=== PATIENT | female | born 1935 | race African-American/Black ===

== ENCOUNTER 2016-10-21 23:30 | Inpatient (IN) | payer OTHER, MEDICARE ==
--- NOTE | 2016-10-21 23:40 | PDOC ---
History of Present Illness - General History Source: Patient Exam Limitations: No Limitations - History of Present Illness Initial Comments: 10/22/16 00:03 Patient is a 80 year old female with a significant past medical history of hypertension and renal disease on HD who presents via EMS from [facility] sent to the ED complaining of fever and abdominal pain for 3 days. Patient reports abdominal pain localized to RUQ. Patient also reports dysuria. She denies chills, nausea, vomiting, diarrhea or constipation. <Minerva Stone - Last Filed: 10/22/16 01:23> <Zak Ríos - Last Filed: 10/22/16 02:02> <Jaclyn Us - Last Filed: 10/22/16 02:11> <Mayra Yeung - Last Filed: 10/22/16 03:37> - General Stated Complaint: FEVER Past History <Minerva Stone - Last Filed: 10/22/16 01:23> <Zak Ríos - Last Filed: 10/22/16 02:02> <Jaclyn Us - Last Filed: 10/22/16 02:11> <Mayra Yeung - Last Filed: 10/22/16 03:37> - Past Medical History Allergies/Adverse Reactions: Allergies Allergy/AdvReac Type Severity Reaction Status Date / Time No Known Allergies Allergy Verified 10/21/16 23:46 Home Medications: Ambulatory Orders Acetaminophen [Tylenol -] 650 mg PO Q6H PRN 10/22/16 Albuterol 2.5/Ipratropium 0.5 [Duoneb -] 1 neb NEB Q4H PRN 10/22/16 Amlodipine Besylate [Norvasc -] 10 mg PO DAILY 10/22/16 Calcium Carbonate/Vitamin D3 [Calcium 600 + Vit D 200 Tablet] 1 each PO DAILY Carvedilol [Coreg -] 25 mg PO BID 10/22/16 Diphenhydramine HCl [Benadryl -] 25 mg PO DAILY 10/22/16 Folic Acid/Vit Bcomp,C [Dialyvite Tablet] 1 each PO DAILY 10/22/16 Loperamide HCl [Imodium A-D] 2 mg PO Q4H PRN 10/22/16 [place]-3/Dha/Epa/Fish Oil [[place] 3 500 Softgel] 1 each PO DAILY 10/22/16 Review of Systems - Review of Systems Able to Perform ROS?: Yes Comments:: 10/22/16 00:03 CONSTITUTIONAL: Present: fever Absent: chills, diaphoresis, generalized weakness, malaise, loss of appetite HEENT: Absent: rhinorrhea, nasal congestion, throat pain, throat swelling, difficulty swallowing, mouth swelling, ear pain, eye pain, visual Changes CARDIOVASCULAR: Absent: chest pain, syncope, palpitations, irregular heart rate, lightheadedness , peripheral edema RESPIRATORY: Absent: cough, shortness of breath, dyspnea with exertion, orthopnea, wheezing, stridor, hemoptysis GASTROINTESTINAL: Present: abdominal pain Absent: abdominal distension, nausea, vomiting, diarrhea, constipation, melena, hematochezia GENITOURINARY: Present: dysuria Absent: frequency, urgency, hesitancy, hematuria, flank pain, genital pain MUSCULOSKELETAL: Absent: myalgia, arthralgia, joint swelling SKIN: Absent: rash, itching, pallor HEMATOLOGIC/IMMUNOLOGIC: Absent: easy bleeding, easy bruising, lymphadenopathy, frequent infections ENDOCRINE: Absent: unexplained weight gain, unexplained weight loss, heat intolerance, cold intolerance NEUROLOGIC: Absent: headache, focal weakness or paresthesias, dizziness, unsteady gait, seizure, mental status changes, bladder or bowel incontinence PSYCHIATRIC: Absent: anxiety, depression, suicidal or homicidal ideation, hallucinations. <Minerva Stone - Last Filed: 10/22/16 01:23> *Physical Exam - Vital Signs Last Vital Signs Temp Pulse Resp BP Pulse Ox 99.2 F 77 20 112/40 93 L 10/21/16 23:44 10/21/16 23:44 10/21/16 23:44 10/21/16 23:44 10/21/16 23:56 - Physical Exam Comments: 10/22/16 00:05 GENERAL: Well developed, well nourished. Awake and alert. In no acute distress. HEENT: Normocephalic, atraumatic. PERRLA, EOMI. No conjunctival pallor. Sclera are non- icteric. Moist mucous membranes. Oropharynx is clear. NECK: Supple. Full ROM. No JVD. Carotid pulses 2+ and symmetric, without bruits. No thyromegaly. No lymphadenopathy. CARDIOVASCULAR: Regular rate and rhythm. No murmurs, rubs, or gallops. Distal pulses are 2+ and symmetric. PULMONARY: No evidence of respiratory distress. Lungs clear to auscultation bilaterally. No wheezing, rales or rhonchi. ABDOMINAL: +Tenderness over RUQ upon deep palpation. Soft. Non-distended. No rebound or guarding. No organomegaly. Normoactive bowel sounds. MUSCULOSKELETAL Normal range of motion at all joints. No bony deformities or tenderness. No CVA tenderness. EXTREMITIES: +Full strength in all extremities. No cyanosis. No clubbing. No edema. No calf tenderness. SKIN: +Stage 1 dequibidy bedsore on buttocks. Warm and dry. Normal capillary refill. No rashes. No jaundice. NEUROLOGICAL: Alert, awake, appropriate. Cranial nerves 2-12 intact. No deficits to light touch and temperature in face, upper extremities and lower extremities. No motor deficits in the in face, upper extremities and lower extremities. Normoreflexic in the upper and lower extremities. Normal speech. Toes are downgoing bilaterally. Gait deferred. PSYCHIATRIC: Cooperative. Good eye contact. Appropriate mood and affect. <Minerva Stone - Last Filed: 10/22/16 01:23> - Vital Signs Last Vital Signs Temp Pulse Resp BP Pulse Ox 99.2 F 77 20 112/40 93 L 10/21/16 23:44 10/21/16 23:44 10/21/16 23:44 10/21/16 23:44 10/21/16 23:56 <Jaclyn Us - Last Filed: 10/22/16 02:11> - Vital Signs Last Vital Signs Temp Pulse Resp BP Pulse Ox 99.2 F 77 20 112/40 93 L 10/21/16 23:44 10/21/16 23:44 10/21/16 23:44 10/21/16 23:44 10/21/16 23:56 <Mayra Yeung - Last Filed: 10/22/16 03:37> ED Treatment Course - LABORATORY CBC & Chemistry Diagram: 10/22/16 00:30 10/22/16 00:30 - RADIOLOGY Radiology Studies Ordered: 10/22/16 01:24 Exam: Transabdominal sonogram Findings: The visualized aorta has a normal appearance. The visualized pancreatic parenchyma is unremarkable. The proximal IVC is unremarkable. A small pericardial effusion is noted. There is a small right pleural effusion. The liver measures 16.5 cm in length within normal limits. The parenchymal echotexture is unremarkable. Numerous anechoic foci are noted in the right kidney which measures 14.1 cm in length. These may represent dilated calyces or cysts. A lesion in the upper pole appears complex and measures up to 5.5 x 4.9 cm in diameter contains both echogenic and hypoechoic material and vascularity on color images. The gallbladder has a normal appearance. No sludge or shadowing calculi are seen. There is no mural thickening or pericholecystic fluid. Hepatopetal flow is demonstrated in the main portal vein. The CBD measures 8 mm in diameter which is mildly enlarged. The spleen is within limits for size and has a normal appearance. Impression: Small pericardial effusion noted. Small pleural effusion noted. Normal appearance of the liver and gallbladder. Enlarged right kidney with numerous cystic foci. A complex lesion in the upper pole demonstrates internal vascular flow. Further evaluation of this process is indicated. Normal appearance of the gallbladder. Mild ectasia of the CBD. Limited pancreas. <Minerva Stone - Last Filed: 10/22/16 01:23> - LABORATORY CBC & Chemistry Diagram: 10/22/16 00:30 10/22/16 00:30 <Zak Ríos - Last Filed: 10/22/16 02:02> - LABORATORY CBC & Chemistry Diagram: 10/22/16 00:30 10/22/16 00:30 - ADDITIONAL ORDERS Additional order review: Laboratory Results 10/22/16 10/22/16 00:30 00:30 Sodium 135 L Potassium 3.4 L Chloride 94 L Carbon Dioxide 32 Anion Gap 9 BUN 22 H Creatinine 2.8 H Creat Clearance w eGFR 16.30 Random Glucose 78 Lactic Acid 1.419 Calcium 7.7 L Total Bilirubin 0.7 AST 14 L ALT 7 L Alkaline Phosphatase 83 Total Protein 6.3 L Albumin 1.2 L 10/22/16 00:30 RBC 2.54 L MCV 101.3 H MCHC 32.9 RDW 20.8 H MPV 10.4 Neutrophils % 80.0 Lymphocytes % 8.4 Monocytes % 11.3 H Eosinophils % 0.1 Basophils % 0.2 <Jaclyn Us - Last Filed: 10/22/16 02:11> - LABORATORY CBC & Chemistry Diagram: 10/22/16 00:30 10/22/16 00:30 - ADDITIONAL ORDERS Additional order review: Laboratory Results 10/22/16 10/22/16 00:30 00:30 Sodium 135 L Potassium 3.4 L Chloride 94 L Carbon Dioxide 32 Anion Gap 9 BUN 22 H Creatinine 2.8 H Creat Clearance w eGFR 16.30 Random Glucose 78 Lactic Acid 1.419 Calcium 7.7 L Total Bilirubin 0.7 AST 14 L ALT 7 L Alkaline Phosphatase 83 Total Protein 6.3 L Albumin 1.2 L 10/22/16 00:30 RBC 2.54 L MCV 101.3 H MCHC 32.9 RDW 20.8 H MPV 10.4 Neutrophils % 80.0 Lymphocytes % 8.4 Monocytes % 11.3 H Eosinophils % 0.1 Basophils % 0.2 <Mayra Yeung - Last Filed: 10/22/16 03:37> Medical Decision Making - Medical Decision Making 10/22/16 02:02 CXR looks like a right sided pneumonia. Refuses Cath urine. also refuses flu test. <Zak Ríos - Last Filed: 10/22/16 02:02> - Medical Decision Making 10/22/16 02:12 Dr. Purdy,covering for Dr. Lr, was paged through his service. <Jaclyn Us - Last Filed: 10/22/16 02:11> - Critical Care Time Total Critical Care Time (minutes): 30 Critical Care Statement: The care of this patient involved high complexity decision making to prevent further life threatening deterioration of the patient 's condition and/or to evalute & treat vital organ system(s) failure or risk of failure. - Medical Decision Making 10/22/16 03:32 I received patient on signout. She is full code, ESRD, from [place] for pneumonia. Receiving zosyn IVPB; and vancomycin. Once she received vancomycin she states that she wasnt feeling well and she was having difficulty breathong. Vanco was stopped. Pt soon lost consciousness. Code was called and Pt was given cardiac compressions as she lost a pulse. She was given epi x 2 and bicarb and calcium and she was intubated by muyself with a 7.5 ETT. She regained pulses. Dr. Purdy, PMD aware and ICU AWS CONSULTANT aware. Pt will be re-routed to the ICU for admission. <Mayra Yeung - Last Filed: 10/22/16 03:37> *DC/Admit/Observation/Transfer - Attestations Scribe Attestion: 10/22/16 00:07 Documentation prepared by HOLLY Perez, acting as faculty i on call medical assistant for Zak Ríos MD. <Minerva Stone - Last Filed: 10/22/16 01:23> <Zak Ríos - Last Filed: 10/22/16 02:02> <Jaclyn Us - Last Filed: 10/22/16 02:11> - Discharge Dispostion Admit: Yes <Mayra Yeung - Last Filed: 10/22/16 03:37> Diagnosis at time of Disposition: Pneumonia, Respiratory failure - Discharge Dispostion Condition at time of disposition: Poor - Referrals
[2016-10-21] MEDS ORDERED: SODIUM CHLORIDE 1,000 ML IV SCH (23:45)
[2016-10-21] MEDS ORDERED: ACETAMINOPHEN 325 MG TABLET (FP) PO ONE (23:55)
[2016-10-22] MEDS ORDERED: ACETAMINOPHEN 325 MG TABLET (FP) ONE (00:17)
[2016-10-22 00:42] LABS: BASOPHIL 0.2 % (0-2.0); EOSINOPHIL 0.1 % (0-4.5); MCH 33.3 pg (25.7-33.7); MCHC 32.9 g/dl (32.0-36.0); MEAN CELL VOLUME 101.3 fl (80-96); MEAN PLT VOLUME 10.4 fl (7.5-11.1); PLATELET COUNT 68 K/MM3 (134-434); RDW 20.8 % (11.6-15.6); WHITE BLOOD COUNT 9.6 K/mm3 (4.0-10.0)
[2016-10-22 01:31] LABS: ALBUMIN 1.2 g/dl (3.4-5.0); BILIRUBIN,TOTAL 0.7 mg/dL (0.2-1.0); CALCIUM 7.7 mg/dL (8.5-10.1); CREATININE 2.8 mg/dL (0.55-1.02); TOT PROT 6.3 g/dl (6.4-8.2)
[2016-10-22] MEDS ORDERED: VANCOMYCIN 1,000 MG in DEXTROSE 5%-WATER - 250 ML IVPB ONE (02:00)
[2016-10-22] MEDS ORDERED: PIPERACILLIN/TAZOB 3.375 GM 50 ML IVPB ONE (02:14)
[2016-10-22] MEDS ORDERED: VANCOMYCIN 1 GRAM (PRE-DOCKED) 250 ML IVPB ONE (02:15)
[2016-10-22] MEDS: PIPERACILLIN/TAZOB 3.375 GM/50 ML PRE-DOCKED IVPB SCH ×2 (02:46→09:43)
[2016-10-22] MEDS ORDERED: RAPID SEQUENCE INTUBATION KIT NR ONE (03:07)
[2016-10-22 03:55] LABS: ANISOCYTOSIS 2+; HYPOCHROMIA 2+; PLATELET COMMENT2 NO CLOTTING DETECTED; PLATELET ESTIMATE DECREASED (NORMAL); POIKILOCYTOSIS 2+; POLYCHROMASIA 1+
[2016-10-22 03:56] LABS: TOXIC GRANULATION FEW
[2016-10-22] MEDS ORDERED: HEPARIN NA (PORCINE) 5,000 UNITS/ML 1ML VIAL IVPUSH PRN ×2 (04:52)
[2016-10-22 04:59] LABS: ARTERIAL BLD GAS O2 SATURATION 98.2 % (90-98.9); ARTERIAL BLOOD GAS BASE EXCESS 5.9 meq/l (-2-2); ARTERIAL BLOOD GAS HCO3 28.4 meq/L (22-26)
[2016-10-22 05:00] LABS: ALLENS TEST POSITIVE; ART PUNCT SITE RIGHT RADIAL; LPM/O2% 100%; MECH. VENT. YES; PT. ON O2? YES; TYPE OF O2 MECH VENT; VENT RATE 12; VT/PRESS 400
[2016-10-22 05:01] LABS: ARTERIAL BLOOD GAS pH 7.54 (7.35-7.45)
[2016-10-22 05:21] LABS: BASOPHIL 0.2 % (0-2.0); MCH 33.4 pg (25.7-33.7); MCHC 33.1 g/dl (32.0-36.0); MEAN CELL VOLUME 100.7 fl (80-96); MEAN PLT VOLUME 10.9 fl (7.5-11.1); NEUTROPHILS 90.7 % (42.8-82.8); PLATELET COUNT 60 K/MM3 (134-434); RDW 20.9 % (11.6-15.6); WHITE BLOOD COUNT 10.7 K/mm3 (4.0-10.0)
[2016-10-22 05:31] LABS: INR 1.83 (0.82-1.09); PROTHROMBIN TIME (PATIENT) 20.4 SEC (9.98-11.88)
[2016-10-22 05:48] LABS: BILIRUBIN,TOTAL 0.8 mg/dL (0.2-1.0); CALCIUM 8.2 mg/dL (8.5-10.1); CREATININE 2.9 mg/dL (0.55-1.02); MAGNESIUM 1.9 mg/dL (1.8-2.4); TOT PROT 5.6 g/dl (6.4-8.2)
--- NOTE | 2016-10-22 05:59 | CONSULT ---
Consult Consult Specialty:: Pulm/CCM Reason for Consultation:: post arrest, resp failure, altered mental status - History of Present Illness Chief Complaint: abd pain History of Present Illness: This is a 80 yo woman NHR, PMH: HCV, GIB,HTN, ESRD on HD TIW (m,w,f) who presented with abdominal discomfort and RUQ tenderness who had sudden cardiac arrest of unclear etiology. Briefly per the she had been in her usual state of poor health since Jun when she was admitted to [facility] and has been either hospitalized or in subacute care since. She has been on HD since 2006, she has never received therapy for HCV. She has had recurrent anemia requiring transfusions and has questionable history of esophageal varices. She was sent to [facility] ED the week prior for lab abnormalities but was not admitted. The day prior to admission she developed asymmetric L>R LE edema. In the ED she received u/s abd w/o evidence of acute cholecystitis. CXR with RML/RLL consolidation and vanco/zosyn given for HCAP. She developed acute SOB and became pulseless. ACLS provided for ~10min. She was transferred to ICU. Exam notable for decorticate posturing with tactile stimulation. On arrival to ICU BP 80/40. TLC placed. IV fluids given with improvement. Cooling protocol initiated. - History Source History Provided By: Family Member Limitations to Obtaining History: Intubated - Past Medical History Cardio/Vascular: Yes: HTN Renal/: Yes: Renal Failure Infectious Disease: Yes: Other (HCV) - Past Surgical History Past Surgical History: Yes: AV Fistula/Graft - Alcohol/Substance Use Hx Alcohol Use: No - Smoking History Smoking history: Never smoked - Social History Usual Living Arrangement: [facility] Home Medications - Allergies Allergies/Adverse Reactions: Allergies Allergy/AdvReac Type Severity Reaction Status Date / Time No Known Allergies Allergy Verified 10/21/16 23:46 - Home Medications Home Medications: Ambulatory Orders Acetaminophen [Tylenol -] 650 mg PO Q6H PRN 10/22/16 Albuterol 2.5/Ipratropium 0.5 [Duoneb -] 1 neb NEB Q4H PRN 10/22/16 Amlodipine Besylate [Norvasc -] 10 mg PO DAILY 10/22/16 Calcium Carbonate/Vitamin D3 [Calcium 600 + Vit D 200 Tablet] 1 each PO DAILY Carvedilol [Coreg -] 25 mg PO BID 10/22/16 Diphenhydramine HCl [Benadryl -] 25 mg PO DAILY 10/22/16 Folic Acid/Vit Bcomp,C [Dialyvite Tablet] 1 each PO DAILY 10/22/16 Loperamide HCl [Imodium A-D] 2 mg PO Q4H PRN 10/22/16 [place]-3/Dha/Epa/Fish Oil [[place] 3 500 Softgel] 1 each PO DAILY 10/22/16 Family Disease History - Family Disease History Family History: Unable to Obtain Review of Systems Unable to obtain ROS, reason: intubation Physical Exam Vital Signs: Vital Signs Temperature 99.2 F 10/21/16 23:44 Pulse Rate 73 10/22/16 04:00 Respiratory Rate 14 10/22/16 04:00 Blood Pressure 106/59 10/22/16 04:00 O2 Sat by Pulse Oximetry (%) 100 10/22/16 04:00 Current Medications Heparin Sodium (Porcine) (Heparin -) 1,000 unit IVPUSH PRN PRN PRN Reason: Heparin Heparin Sodium (Porcine) (Heparin -) 5,000 unit IVPUSH PRN PRN PRN Reason: Heparin Sodium Chloride (Normal Saline -) 1,000 mls @ 100 mls/hr IV ASDIR MARIE Last Admin: 10/22/16 01:43 Dose: Not Given Heparin Sodium (Porcine) 25, (000 unit/ Sodium Chloride) 500 mls @ 16 mls/hr IV TITR MARIE; 800 UNIT/HR PRN Reason: Protocol Piperacillin Sod/Tazobactam Sod (Zosyn 3.375gm Ivpb (Pre-Docked)) 3.375 gm IVPB Q8H-IV MARIE Last Admin: 10/22/16 02:46 Dose: 3.375 gm Constitutional: Yes: Cachectic Eyes: Yes: PERRL, Other (left side gaze preference) Cardiovascular: Yes: Regular Rate and Rhythm, S1, S2 Respiratory: Yes: Intubated, Mechanically Ventilated, Rales Gastrointestinal: Yes: Normal Bowel Sounds, Soft Extremities: Yes: Other (L>R edema) Edema: LLE: 2+, RLE: 1+ Neurological: Yes: Unresponsive, Other (decorticate posturing with stimulation) Labs: ABG Results ABG pH 7.54 (7.35-7.45) H 10/22/16 04:46 ABG pCO2 at Pt Temp 33.0 mmHg (35-45) L 10/22/16 04:46 ABG pO2 at Pt Temp 386.0 mmHg (70-100) H* 10/22/16 04:46 ABG HCO3 28.4 meq/L (22-26) H 10/22/16 04:46 ABG O2 Sat (Measured) 98.2 % (90-98.9) 10/22/16 04:46 ABG O2 Content 12.4 % vol (15-22) L 10/22/16 04:46 ABG Base Excess 5.9 meq/l (-2-2) H 10/22/16 04:46 CBCD WBC 10.7 K/mm3 (4.0-10.0) H 10/22/16 04:45 RBC 2.46 M/mm3 (3.60-5.2) L 10/22/16 04:45 Hgb 8.2 GM/dL (10.7-15.3) L 10/22/16 04:45 Hct 24.8 % (32.4-45.2) L 10/22/16 04:45 MCV 100.7 fl (80-96) H 10/22/16 04:45 MCHC 33.1 g/dl (32.0-36.0) 10/22/16 04:45 RDW 20.9 % (11.6-15.6) H 10/22/16 04:45 Plt Count 60 K/MM3 (134-434) L 10/22/16 04:45 MPV 10.9 fl (7.5-11.1) 10/22/16 04:45 CMP Sodium 135 mmol/L (136-145) L 10/22/16 00:30 Potassium 3.4 mmol/L (3.5-5.1) L 10/22/16 00:30 Chloride 94 mmol/L (98-107) L 10/22/16 00:30 Carbon Dioxide 32 mmol/L (21-32) 10/22/16 00:30 Anion Gap 9 (8-16) 10/22/16 00:30 BUN 22 mg/dL (7-18) H 10/22/16 00:30 Creatinine 2.8 mg/dL (0.55-1.02) H 10/22/16 00:30 Creat Clearance w eGFR 16.30 (>60) 10/22/16 00:30 Random Glucose 78 mg/dL (74-106) 10/22/16 00:30 Calcium 7.7 mg/dL (8.5-10.1) L 10/22/16 00:30 Total Bilirubin 0.7 mg/dL (0.2-1.0) 10/22/16 00:30 AST 14 U/L (15-37) L 10/22/16 00:30 ALT 7 U/L (12-78) L 10/22/16 00:30 Alkaline Phosphatase 83 U/L (45-117) 10/22/16 00:30 Total Protein 6.3 g/dl (6.4-8.2) L 10/22/16 00:30 Albumin 1.2 g/dl (3.4-5.0) L 10/22/16 00:30 Imaging - Results Chest X-ray: Report Reviewed, Image Reviewed Problem List - Problems (1) Pneumonia Code(s): J18.9 - PNEUMONIA, UNSPECIFIED ORGANISM (2) Respiratory failure Code(s): J96.90 - RESPIRATORY FAILURE, UNSP, UNSP W HYPOXIA OR HYPERCAPNIA (3) ESRD (end stage renal disease) on dialysis Code(s): N18.6 - END STAGE RENAL DISEASE Z99.2 - DEPENDENCE ON RENAL DIALYSIS (4) HCV (hepatitis C virus) Code(s): B19.20 - UNSPECIFIED VIRAL HEPATITIS C WITHOUT HEPATIC COMA (5) Cardiac arrest Code(s): I46.9 - CARDIAC ARREST, CAUSE UNSPECIFIED (6) Shock Code(s): R57.9 - SHOCK, UNSPECIFIED Assessment/Plan a/p: 80 yo woman ESRD on HD, HCV, GIB with cardiac arrest ~10m until ROSC of unclear etiology: primary hypoxia r/t HCAP vs PE given recent history of asymmetric LE edema vs primary arrhythmia/NE now with seizure like activity -mechanical ventilation -cooling per protocol x 24hrs goal temp 36 deg -CT head to r/o CVA -CTA unable to obtain 2/2 IV access -heparin drip empiric for possible PE -ECHO -LE dopplers -TLC placement -pressors as needed for MAP 65-75 -ABX: zosyn/vanco for HCAP -ID consult in AM -Renal consult in AM -neuro consult -trend lactate -trend troponin -f/u amylase/lipase given abd pain on presentation -prn sedation -ativan x1 for seizure -keppra load I spoke with : Carlyle Bullock [phone] Marcy ACNP Pulm/CCM CCT: 35
[2016-10-22 06:04] LABS: TROPONIN I 0.04 ng/ml (0.00-0.05)
[2016-10-22 06:21] LABS: PHOSPHOROUS 1.1 mg/dL (2.5-4.9)
[2016-10-22 07:40] LABS: ANISOCYTOSIS 2+; HYPOCHROMIA 2+; MICROCYTOSIS 1+; PLATELET COMMENT2 NO CLOTTING DETECTED; PLATELET COMMENT3 FEW LARGE PLTS; PLATELET ESTIMATE DECREASED (NORMAL); POIKILOCYTOSIS 1+; POLYCHROMASIA 1+
[2016-10-22 07:41] LABS: FRAGMENTED CELL 1+; TEAR DROP CELLS 1+
[2016-10-22] MEDS ORDERED: HEPARIN INFUSION - 500 ML IVPB ONE (08:01)
[2016-10-22 08:34] LABS: BILIRUBIN,DIRECT 0.4 mg/dL (0.0-0.2)
[2016-10-22] MEDS ORDERED: LORAZEPAM CARPU-JECT 2 MG/ML DISP.SYRIN IVPUSH ONE (08:39)
[2016-10-22] MEDS ORDERED: PROPOFOL 100 ML IVPB SCH (09:00)
--- NOTE | 2016-10-22 09:31 | EKG ---
Test Reason : Blood Pressure : / mmHG Vent. Rate : 080 BPM Atrial Rate : 080 BPM P-R Int : 274 ms QRS Dur : 086 ms QT Int : 428 ms P-R-T Axes : 067 013 057 degrees QTc Int : 493 ms SINUS RHYTHM WITH 1ST DEGREE A-V BLOCK WITH OCCASIONAL PREMATURE VENTRICULAR COMPLEXES POSSIBLE LEFT ATRIAL ENLARGEMENT SEPTAL INFARCT , AGE UNDETERMINED ABNORMAL ECG NO PREVIOUS ECGS AVAILABLE POOR DATA QUALITY, INTERPRETATION MAY BE ADVERSELY AFFECTED Confirmed by LANDON PHILLIP MD ([id number]) on 10/22/2016 9:30:46 AM Referred By: Confirmed By:LANDON PHILLIP MD
[2016-10-22] MEDS ORDERED: levETIRAcetam 500 MG/5 ML INJECTION VIAL IVPB ONE (09:49)
[2016-10-22] MEDS ORDERED: SODIUM PHOSPHATE - 15 MM in DEXTROSE 5%-WATER - 250 ML IVPB ONE (10:00)
--- NOTE | 2016-10-22 10:47 | HP ---
Admitting History and Physical - Admission History of Present Illness: 80 yo woman NHR, PMH: HCV, GIB,HTN, ESRD on HD TIW (m,w,f) who presented with abdominal discomfort and RUQ tenderness who had sudden cardiac arrest of unclear etiology. Briefly per the she had been in her usual state of poor health since Jun when she was admitted to [facility] and has been either hospitalized or in subacute care since. She has been on HD since 2006, she has never received therapy for HCV. She has had recurrent anemia requiring transfusions and has questionable history of esophageal varices. She was sent to [facility] ED the week prior for lab abnormalities but was not admitted. The day prior to admission she developed asymmetric L>R LE edema. In the ED she received u/s abd w/o evidence of acute cholecystitis. CXR with RML/RLL consolidation and vanco/zosyn given for HCAP. She developed acute SOB and became pulseless. ACLS provided for ~10min. She was transferred to ICU. - Past Medical History Cardiovascular: Yes: HTN Renal/: Yes: Renal Failure Infectious Disease: Yes: Other (HCV) - Past Surgical History Past Surgical History: Yes: AV Fistula/Graft - Smoking History Smoking history: Never smoked - Alcohol/Substance Use Hx Alcohol Use: No <Janae Purdy - Last Filed: 10/22/16 11:47> - Primary Care Physician PCP: Boaz Lr <Brooklynn Nation P - Last Filed: 10/24/16 12:33> Home Medications <Janae Purdy - Last Filed: 10/22/16 11:47> <Brooklynn Nation P - Last Filed: 10/24/16 12:33> - Allergies Allergies/Adverse Reactions: Allergies Allergy/AdvReac Type Severity Reaction Status Date / Time No Known Allergies Allergy Verified 10/21/16 23:46 - Home Medications Home Medications: Ambulatory Orders Acetaminophen [Tylenol -] 650 mg PO Q6H PRN 10/22/16 Albuterol 2.5/Ipratropium 0.5 [Duoneb -] 1 neb NEB Q4H PRN 10/22/16 Amlodipine Besylate [Norvasc -] 10 mg PO DAILY 10/22/16 Calcium Carbonate/Vitamin D3 [Calcium 600 + Vit D 200 Tablet] 1 each PO DAILY Carvedilol [Coreg -] 25 mg PO BID 10/22/16 Diphenhydramine HCl [Benadryl -] 25 mg PO DAILY 10/22/16 Folic Acid/Vit Bcomp,C [Dialyvite Tablet] 1 each PO DAILY 10/22/16 Loperamide HCl [Imodium A-D] 2 mg PO Q4H PRN 10/22/16 [place]-3/Dha/Epa/Fish Oil [[place] 3 500 Softgel] 1 each PO DAILY 10/22/16 Physical Examination Vital Signs: Vital Signs Temperature 94.6 F L 10/22/16 09:39 Pulse Rate 84 10/22/16 09:39 Respiratory Rate 12 10/22/16 09:39 Blood Pressure 106/57 10/22/16 09:39 O2 Sat by Pulse Oximetry (%) 100 10/22/16 09:27 Cardiovascular: Yes: S1 Respiratory: Yes: Intubated, Mechanically Ventilated Gastrointestinal: Yes: Normal Bowel Sounds, Soft Neurological: Yes: Unresponsive, Other (some spontoneuos movements--twitching) Labs: CBC, BMP 10/22/16 04:45 10/22/16 04:45 <Janae Purdy - Last Filed: 10/22/16 11:47> Vital Signs: Vital Signs Temperature 98.1 F 10/24/16 11:29 Pulse Rate 80 10/24/16 11:29 Respiratory Rate 20 10/24/16 11:29 Blood Pressure 100/53 10/24/16 11:29 O2 Sat by Pulse Oximetry (%) 100 10/24/16 10:21 Labs: CBC, BMP 10/24/16 05:15 10/24/16 05:15 <Brooklynn Nation - Last Filed: 10/24/16 12:33> Imaging - Results X-ray: Report Reviewed Cat Scan: Report Reviewed <Janae Purdy - Last Filed: 10/22/16 11:47> Problem List - Problems (1) Cardiac arrest Assessment/Plan: FOLLOW CE CARDIO CONSULT EKG ECHO DUPLEX OF LE--R/O DVT CTA Code(s): I46.9 - CARDIAC ARREST, CAUSE UNSPECIFIED (2) ESRD (end stage renal disease) on dialysis Assessment/Plan: RENAL CONSULT FOLLOW RENAL FUNCTION Code(s): N18.6 - END STAGE RENAL DISEASE Z99.2 - DEPENDENCE ON RENAL DIALYSIS (3) Pneumonia Assessment/Plan: IV ABX ID CONSULT FOLLOW LABS Code(s): J18.9 - PNEUMONIA, UNSPECIFIED ORGANISM (4) Respiratory failure Assessment/Plan: VENT SETTING PER PULM FOLLOW SAT Code(s): J96.90 - RESPIRATORY FAILURE, UNSP, UNSP W HYPOXIA OR HYPERCAPNIA <Janae Purdy - Last Filed: 10/22/16 11:47>
[2016-10-22 12:02] LABS: BASOPHIL 0.1 % (0-2.0); EOSINOPHIL 0.1 % (0-4.5); MCH 33.9 pg (25.7-33.7); MCHC 33.3 g/dl (32.0-36.0); MEAN CELL VOLUME 101.7 fl (80-96); MEAN PLT VOLUME 10.2 fl (7.5-11.1); NEUTROPHILS 89.8 % (42.8-82.8); PLATELET COUNT 40 K/MM3 (134-434); RDW 20.7 % (11.6-15.6); WHITE BLOOD COUNT 9.8 K/mm3 (4.0-10.0)
[2016-10-22 12:35] LABS: BILIRUBIN,TOTAL 0.7 mg/dL (0.2-1.0); CREATININE 2.4 mg/dL (0.55-1.02); TOT PROT 4.5 g/dl (6.4-8.2); TROPONIN I 0.1 ng/ml (0.00-0.05)
[2016-10-22] MEDS: HEPARIN - 25,000 UNIT in SODIUM CHLORIDE 495 ML IV SCH (12:43)
--- NOTE | 2016-10-22 12:52 | CONSULT ---
Consult Consult Specialty:: Neurology Reason for Consultation:: Altered mental status - History of Present Illness History of Present Illness: 80 year old woman with history of hepatitis C, GI bleed, hypertension, ESRD on HD, presented with abdominal discomfort, was noted to have sudden cardiac arrest of unclear etiology. As per has been slowly declining in terms of health since June and has been in and out of hospitals and nursing facilities since. In Ed chest xray revealed right lower lobe consolidation, and patient was initiated on therapy for HCAP. Was noted to be unresponsive and pulseless. ACLS provided for ten minutes. Was transferred to ICU where patient was noted to be hypotensive. CT head no acute abnormalites. Exam notable for decorticate posturing with tactile stimulation and seizure like activity. Currently on cooling protocol, not on paralytics. Sedated with propofol - Past Medical History Cardio/Vascular: Yes: HTN Renal/: Yes: Renal Failure Infectious Disease: Yes: Other (HCV) - Past Surgical History Past Surgical History: Yes: AV Fistula/Graft - Alcohol/Substance Use Hx Alcohol Use: No - Smoking History Smoking history: Never smoked - Social History Usual Living Arrangement: [facility] Home Medications - Allergies Allergies/Adverse Reactions: Allergies Allergy/AdvReac Type Severity Reaction Status Date / Time No Known Allergies Allergy Verified 10/21/16 23:46 - Home Medications Home Medications: Ambulatory Orders Acetaminophen [Tylenol -] 650 mg PO Q6H PRN 10/22/16 Albuterol 2.5/Ipratropium 0.5 [Duoneb -] 1 neb NEB Q4H PRN 10/22/16 Amlodipine Besylate [Norvasc -] 10 mg PO DAILY 10/22/16 Calcium Carbonate/Vitamin D3 [Calcium 600 + Vit D 200 Tablet] 1 each PO DAILY Carvedilol [Coreg -] 25 mg PO BID 10/22/16 Diphenhydramine HCl [Benadryl -] 25 mg PO DAILY 10/22/16 Folic Acid/Vit Bcomp,C [Dialyvite Tablet] 1 each PO DAILY 10/22/16 Loperamide HCl [Imodium A-D] 2 mg PO Q4H PRN 10/22/16 [place]-3/Dha/Epa/Fish Oil [[place] 3 500 Softgel] 1 each PO DAILY 10/22/16 Review of Systems Unable to obtain ROS, reason: mental status Physical Exam Vital Signs: Vital Signs Temperature 94.6 F L 10/22/16 09:39 Pulse Rate 70 10/22/16 11:57 Respiratory Rate 10 L 10/22/16 12:04 Blood Pressure 100/54 10/22/16 11:57 O2 Sat by Pulse Oximetry (%) 100 10/22/16 09:27 Constitutional: Yes: Well Nourished Cardiovascular: Yes: S1, S2 Respiratory: Yes: Other (on vent) Neurological: Yes: Other (intubated, sedated on propofol right gaze preference noted, pupils 4 mm non reactive, slight corneal bilaterally appears to slightly withdraw in all ext to noxious stim) Labs: CBC, BMP 10/22/16 11:51 Assessment/Plan 80 year old woman with history of hepatitis C, GI bleed, hypertension, ESRD on HD, presented with abdominal discomfort, was noted to have sudden cardiac arrest of unclear etiology. As per has been slowly declining in terms of health since June and has been in and out of hospitals and nursing facilities since. In Ed chest xray revealed right lower lobe consolidation, and patient was initiated on therapy for HCAP. Was noted to be unresponsive and pulseless. ACLS provided for ten minutes. Was transferred to ICU where patient was noted to be hypotensive. CT head no acute abnormalites. Exam notable for decorticate posturing with tactile stimulation and seizure like activity. Currently on cooling protocol, not on paralytics. Sedated with propofol. Exam limited as patient on cooling protocol and sedated, some withdrawl noted on noxious stim Recommend EEG (will order) On keppra 500 BID, unclear when plan for dialysis Keppra 1 g x [address] head no acute abnormalities Propofol titrated may help with tremors Supportive care
[2016-10-22 12:59] LABS: ALBUMIN 0.9 g/dl (3.4-5.0)
[2016-10-22 13:01] LABS: CALCIUM 6.2 mg/dL (8.5-10.1)
[2016-10-22] MEDS ORDERED: POTASSIUM CHLORIDE 40 MEQ/30 ML UNIT DOSE CUP PO ONE (13:01)
--- NOTE | 2016-10-22 13:28 | CON.NEP ---
Consult Consult Specialty:: Nephrology Referred by:: Dr Purdy Reason for Consultation:: ESRD - History of Present Illness History of Present Illness: This is a 80 yo woman from [facility] with PMH of HCV, GIB, HTN, ESRD on HD TIW who presented with abdominal discomfort and RUQ tenderness who had sudden cardiac arrest of unclear etiology.ACLS lasted 10 minutes. Post arrest pt developed seizures so AED started and for EEG. From ED pt was transferred to ICU where decorticate posturing was noted . "On arrival to ICU BP 80/40. TLC placed. IV fluids given with improvement. Cooling protocol initiated." Pt now on Propofol and on the ventilator with FiO2 of 50% On empiric abx for HCAP and on IV Heparin for possible DVT Sonogram Right renal complex cyst 5.4 cm in diameter Pt known to me from [facility] where she receives her HD on MWF. She was referred to the ED on 10/18 for weakness and relatively low BP after HD but was discharged back to the SNF after evaluation by ED staff. - History Source Limitations to Obtaining History: Other (Sedated) - Past Medical History Cardio/Vascular: Yes: Aneurysm, HTN Renal/: Yes: Renal Failure Infectious Disease: Yes: Other (HCV) - Past Surgical History Past Surgical History: Yes: AV Fistula/Graft - Alcohol/Substance Use Hx Alcohol Use: No - Smoking History Smoking history: Never smoked - Social History Usual Living Arrangement: [facility] Home Medications - Allergies Allergies/Adverse Reactions: Allergies Allergy/AdvReac Type Severity Reaction Status Date / Time No Known Allergies Allergy Verified 10/21/16 23:46 - Home Medications Home Medications: Ambulatory Orders Acetaminophen [Tylenol -] 650 mg PO Q6H PRN 10/22/16 Albuterol 2.5/Ipratropium 0.5 [Duoneb -] 1 neb NEB Q4H PRN 10/22/16 Amlodipine Besylate [Norvasc -] 10 mg PO DAILY 10/22/16 Calcium Carbonate/Vitamin D3 [Calcium 600 + Vit D 200 Tablet] 1 each PO DAILY Carvedilol [Coreg -] 25 mg PO BID 10/22/16 Diphenhydramine HCl [Benadryl -] 25 mg PO DAILY 10/22/16 Folic Acid/Vit Bcomp,C [Dialyvite Tablet] 1 each PO DAILY 10/22/16 Loperamide HCl [Imodium A-D] 2 mg PO Q4H PRN 10/22/16 [place]-3/Dha/Epa/Fish Oil [[place] 3 500 Softgel] 1 each PO DAILY 10/22/16 Nephrology Consult - Height Height: 5 ft 1 in - Weight Weight: 105 lb 11.2 oz - BMI Body Mass Index (BMI): 20.0 - Lab Results CBC,BMP: CBC, BMP 10/22/16 11:51 10/22/16 11:51 Laboratory Tests 10/22/16 10/22/16 10/22/16 04:45 04:45 04:45 PTT (Actin FS) 50.0 H Lactic Acid 5.078 H* Phosphorus 1.1 L* Total Bilirubin AST ALT Alkaline Phosphatase Creatine Kinase Troponin I 0.04 Total Protein Albumin Hep Bs Antigen Hep Bs Ab Concentration Hep B Core Total Ab Hep B Core IgM Ab Hepatitis Be Antibody Hepatitis Be Antigen Hepatitis C Antibody 10/22/16 10/22/16 04:45 11:51 PTT (Actin FS) Lactic Acid Phosphorus Total Bilirubin 0.7 AST 17 ALT 8 L Alkaline Phosphatase 66 Creatine Kinase 34 Troponin I 0.10 H Total Protein 4.5 L Albumin 0.9 L Hep Bs Antigen Pending Hep Bs Ab Concentration Pending Hep B Core Total Ab Pending Hep B Core IgM Ab Pending Hepatitis Be Antibody Pending Hepatitis Be Antigen Pending Hepatitis C Antibody Pending Anion Gap: Anion Gap Anion Gap 11 (8-16) 10/22/16 11:51 - Imaging Chest X-ray: Report Reviewed Cat Scan: Report Reviewed, Other (No acute pathology) Ultrasound: Report Reviewed EKG: Other (NSR with first degree AVB LAE LVH , PVC and slow R wave progression) - Physical Examination Vital Signs: Vital Signs Temperature 94.6 F L 10/22/16 09:39 Pulse Rate 70 10/22/16 11:57 Respiratory Rate 10 L 10/22/16 12:04 Blood Pressure 100/54 10/22/16 11:57 O2 Sat by Pulse Oximetry (%) 100 10/22/16 09:27 Cardiovascular: Yes: S1, S2. No: JVD Respiratory: Yes: Other (Equal air entry bilaterally) Gastrointestinal: Yes: Soft. No: Distention Extremities: Yes: Other (LUE AVF with thrill) Edema: LLE: 1+, RLE: 1+ Neurological: Yes: Unresponsive, Other (On Propofol) Assessment/Plan Impression S/P Cardio Respiratory Arrest- R/O Sepsis and cardiac etiology Pneumonia with respiratory failure S/P Seizure following the arrest- R/O anoxic encephalopathy ESRD with decreased K and PO4 LE edema with severe hypoalbuminemia Right renal complex cyst > 5cms in diameter Anemia and Thrombocytopenia now on Heparin till DVT can be excluded H/O HCV H/O GIB Plan ICU care Venous doppler of LEs Replacing K and PO4 Repeat the BMP, CBC, TNI, and PO4 with the next PTT at 6 pm Reassess regarding need for HD in the am- No dialysis at this time Cautious use heparin given the thrombocytopenia and prior GIBs Await culture results and hepatitis screen Empiric Abx Nutritional support once felt that pt can tolerate feed EEG Ventilatory support and sedation as per CCM No BP or IV in the LUE Evaluation for the right renal complex cyst if and when pt improves Thank You Dr Mackay
--- NOTE | 2016-10-22 14:27 | CONSULT ---
Consult - text type - Consultation Consultation Note: ASKED BY DR Pnik TO SEE PT. 80 YO FEMALE ABDOMINAL PAIN/CARDIOPULMONARY ARREST. PT SEEN, EXAMINED. ECG'S X RAYS REVIEWED. WORKING DX: CARDIOPULMONARY ARREST DIFF DX: OCCULT ARRHYTHMIA DOUBT ACUTE MYOCARDIAL INFARCTION . ECG UNREMARKABLE FOR ACUTE ISCHEMIA. PULMONARY EMBOLUS PRESENTLY HEMODYNAMICALLY STABLE. HYPERTENSION. ESRD ON DIALYSIS. OVARIAN CANCER S/P CHEMO/RADIATION. REC: OBTAIN PRIOR RECORDS NOT AVAILABLE AT THIS TIME. ECHOCARDIOGRAM. SERIAL TROPONIN/ ECG ANTIBIOTICS DICTATED BY CULTURES. "SUPPORTIVE" THANKS. FULL NOTE DICTATED. WILL FOLLOW.
--- NOTE | 2016-10-22 14:46 | PN ---
Progress Note (short form) - Note Progress Note: ID consult dictated imp/reccd witnessed arrest in ED history of fever at NH right lower lobe pneumonia-HCAP vanco/zosyn adjusted for esrd- cultures sputum culture ESRD/HD Problem List - Problems (1) Cardiopulmonary arrest Code(s): I46.9 - CARDIAC ARREST, CAUSE UNSPECIFIED (2) Respiratory failure Code(s): J96.90 - RESPIRATORY FAILURE, UNSP, UNSP W HYPOXIA OR HYPERCAPNIA (3) Pneumonia Code(s): J18.9 - PNEUMONIA, UNSPECIFIED ORGANISM (4) ESRD (end stage renal disease) on dialysis Code(s): N18.6 - END STAGE RENAL DISEASE Z99.2 - DEPENDENCE ON RENAL DIALYSIS
[2016-10-22] MEDS: PIPERACILLIN/TAZOB 2.25 GM 50 ML IVPB SCH (17:52)
[2016-10-22 18:00] LABS: CREATININE 2.5 mg/dL (0.55-1.02); PHOSPHOROUS 1.9 mg/dL (2.5-4.9)
[2016-10-22 18:02] LABS: TROPONIN I 0.08 ng/ml (0.00-0.05)
[2016-10-22 18:04] LABS: CALCIUM 6.7 mg/dL (8.5-10.1)
--- NOTE | 2016-10-22 20:41 | CONS ---
DATE OF CONSULTATION: 10/22/2016 REQUESTING PROVIDER: Janae Purdy MD HISTORY: This is a 80-year-old female. She was sent from the intermediate with apparently fever and abdominal pain. She has a past medical history notable for end-stage renal disease and is on dialysis. She denied any emergency room chills, nausea, vomiting, diarrhea, or constipation. She had a temperature of 99.2 in the emergency room. While in the emergency room, she had a witnessed arrest and a code was called. She was intubated in the emergency room. She received vancomycin and Zosyn in the ER for possible right lung pneumonia. Apparently she has been in poor health since June of this year when she was admitted to [facility]. She has either been in the hospital or in a snf facility since that time. She has a history of hepatitis C as well, which has never been treated. She has had anemia with intermittent transfusions. Ultrasound was done in the emergency room, which showed no evidence of any biliary disease. Chest x-ray was noted for right sided, possible right basilar infiltrate. The decision was made to treat her for HCAP. She remained unresponsive. She is currently sedated on Propofol in the ICU. I am asked to see her for antibiotic recommendations. Post arrest, she developed seizures, so anticonvulsants were started. She was transferred to the ICU. Her blood pressure was low on arrival. She had a triple lumen placed and received IV fluids with improvement. She is now on Propofol and the ventilator with an FIO2 of 50%. PAST MEDICAL HISTORY: Notable for history of hepatitis C, GI bleed, hypertension, end-stage renal disease on dialysis, and she has a left AV fistula in her arm. ALLERGIES: She has no known drug allergies. MEDICATIONS: At the time of admission included Tylenol, DuoNebs, Norvasc, calcium with vitamin D, Coreg, Benadryl, multivitamin, Imodium, and omega-3. SOCIAL HISTORY: She is currently residing at the [facility] where she has been since June. PHYSICAL EXAMINATION: General: She is sedated. She is intubated. HEENT: She is normocephalic. Eyes are anicteric. Neck: Supple. Lungs: Diminished breath sounds at the bases. Heart: Regular rate and rhythm. She has a left upper extremity AV fistula with a thrill. Abdomen: Soft and nontender. Extremities: Without edema. Neurologic: She is unresponsive. LABORATORY DATA: Her labs are notable for a white count of 9.8, hemoglobin 8.4, platelets of 480,000. Her BUN is 20 and creatinine is 2.4. Lactic acid was 5 on admission. Liver function tests were normal. Influenza screen was done in the emergency room, which is negative. Blood cultures are pending. SUMMARY: This is a 80-year-old woman with end-stage renal disease on dialysis, admitted with history of fever at the intermediate, abdominal pain, questionable right lower lobe infiltrate, and witnessed cardiac arrest in the emergency room. I would agree with antibiotics as planned. We are certainly treating her for healthcare-associated pneumonia. She received vancomycin 1 g given her weight of 105 pounds. That should be quite adequate. I would continue her on Zosyn, adjusted for her renal failure. She is being evaluated by Cardiology and Neurology as well. BRINDA PERRY M.D. [id number]
[2016-10-22 20:55] LABS: BASOPHIL 0.2 % (0-2.0); EOSINOPHIL 0.1 % (0-4.5); MCH 32.9 pg (25.7-33.7); MCHC 32.8 g/dl (32.0-36.0); MEAN CELL VOLUME 100.3 fl (80-96); MEAN PLT VOLUME 10.7 fl (7.5-11.1); PLATELET COUNT 44 K/MM3 (134-434); RDW 20.5 % (11.6-15.6); WHITE BLOOD COUNT 7.6 K/mm3 (4.0-10.0)
[2016-10-22] MEDS: levETIRAcetam 500 MG/5 ML INJECTION VIAL IVPB SCH (21:42)
--- NOTE | 2016-10-22 22:35 | CONS ---
DATE OF CONSULTATION: 10/22/2016 CARDIOLOGY CONSULTATION REQUESTING PHYSICIAN: HISTORY OF PRESENT ILLNESS: The patient is a 80-year-old female admitted on October 21, 2016, because of abdominal pain and a cardiopulmonary arrest. The patient has no history of myocardial infarction or rhythm disturbance. She has known chronic renal insufficiency requiring hemodialysis and hypertension. In addition, there is a previous history of ovarian carcinoma for which she has undergone chemotherapy and radiation. She is admitted now with abdominal pain, an ultrasound study failed to demonstrate any evidence of acute cholecystitis in the emergency room. Plans were made for her to be moved to a medical surgical floor form from the emergency room when she was found to be asystolic with a cardiopulmonary arrest. The resuscitation was successful endotracheal intubation was performed along with cardiopulmonary compression with muslim of a sinus rhythm after being found pulseless. She was brought to the intensive care unit where she had evidence of seizure activity. Vital signs were stable without the requirements for catecholamine support. There is no history of diabetes or smoking. The present medications include propofol, Keppra, heparin, piperacillin, and vancomycin. SOCIAL HISTORY: The patient is . 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 There is no history of smoking or alcohol abuse. PAST MEDICAL HISTORY: Infectious disease , end-stage renal failure, thought to be related to an embolus, details not available. PAST SURGICAL HISTORY: AV fistula for purposes of hemodialysis. ALLERGIES: None. PHYSICAL EXAMINATION: General: The patient is intubated, sedated. Vital signs: Temperature 95, heart rate 70, blood pressure 90 to 100 systolic. The weight is 105 pounds. Neck: No neck vein distention. Lungs: There is poor air exchange bilaterally, there is no wheezing. Heart: The heart sounds are normal. There is a 1/6 systolic murmur at the left sternal border and base. No diastolic sounds were appreciated. The AV fistula is palpable in the left upper extremity with a thrill. There is no peripheral edema. The feet are warm. NEUROLOGICAL: There is no focal neurological deficit. DATABASE: The electrocardiogram on presentation demonstrates sinus rhythm with a technically limited study, 1st-degree AV block, premature ventricular polarizations, low voltage limb leads, possible septal infarct indeterminate age. Subsequent tracing following cardiopulmonary resuscitation on October 22, 2016, now demonstrates sinus rhythm at a rate of 70 per minute, 1st-degree AV block, isolated premature ventricular polarizations, nonspecific ST and T wave changes compared to the previous tracing, nonspecific ST and T wave changes are less apparent on the present study . The present study is technically improved. There is a micro R wave in V2 replacing the previously described QS pattern which probably represents a change in lead placement. The chest x-ray was reviewed, it demonstrates an endotracheal tube in place along with a nasogastric tube. The heart size cannot be accurately assessed due to the technique of the film. There are coarse interstitial lung findings. LABORATORY: Studies of note include white blood cell count of 9.8, hematocrit 25%, platelet count is 40,000. The INR is 1.8 and arterial blood gases on 100% FiO2, pH of 7.54, pCO2 of 33, and pO2 of 386. The CPK is 30 to 34, troponin level is 0.04 to 0.10. IMPRESSION: The working diagnosis is a cardiopulmonary arrest. The differential diagnosis as to the etiology includes an occult arrhythmia. The patient has a first-degree arteriovenous block but no other evidence of conduction system disease to suggest a predisposition towards high-degree arteriovenous block and a bradyarrhythmia. In the setting of a ostensibly normal left ventricular systolic function the risk for the development of a malignant ventricular arrhythmia is low. Electrocardiographic monitoring during symptoms/the cardiac arrest would have been most helpful for diagnosis; however, the patient was not on telemetry monitoring at the time of the cardiopulmonary arrest. Other diagnostic consideration would be that of an acute myocardial infarction; however, the electrocardiogram is unremarkable for acute myocardial ischemic changes. Troponin levels are not significantly elevated, and the CPK level is normal. A pulmonary embolus would also have to be considered as a diagnostic consideration. The patient is presently hemodynamically stable without the requirement of pressors. Of note, and importance in laboratory studies, is marked thrombocytopenia and mild elevation of the INR level. Other problems include a prior history of hypertension, end-stage renal disease on hemodialysis, ovarian carcinoma status post chemotherapy and radiation. I recommended the followin. Obtain prior records not presently available. 2. Echocardiogram. 3. Serial troponin and ECG studies. 4. Antibiotics dictated by cultures. 5. Discontinuation of heparin. 6. "Supportive" further workup and therapy will be dictated by the results of the above evaluation and the patient's clinical course. Thank you for allowing me to take part in the care of this pleasant patient. Will follow along with you. WILLIS TAM M.D. [id number]
[2016-10-22] MEDS ORDERED: POTASSIUM PHOSPHATE 15 MM in DEXTROSE 5%-WATER - 250 ML IVPB ONE (23:02)
[2016-10-22] MEDS ORDERED: NOREPINEPHRINE BITARTRATE 4 MG/4 ML ML IV ONE (23:20)
[2016-10-23] MEDS: NOREPINEPHRINE BITARTRATE 16,000 MCG in DEXTROSE 5%-WATER - 484 ML IV SCH (00:06)
[2016-10-23] MEDS: PIPERACILLIN/TAZOB 2.25 GM 50 ML IVPB SCH ×3 (01:40→17:27)
[2016-10-23] MEDS ORDERED: HEPARIN INFUSION - 500 ML IVPB ONE (06:04)
[2016-10-23 06:11] LABS: BASOPHIL 0.1 % (0-2.0); EOSINOPHIL 0.2 % (0-4.5); MCH 33.2 pg (25.7-33.7); MCHC 33.4 g/dl (32.0-36.0); MEAN CELL VOLUME 99.6 fl (80-96); MEAN PLT VOLUME 11.2 fl (7.5-11.1); NEUTROPHILS 91.1 % (42.8-82.8); PLATELET COUNT 65 K/MM3 (134-434); RDW 20.4 % (11.6-15.6); WHITE BLOOD COUNT 11.4 K/mm3 (4.0-10.0)
[2016-10-23 06:35] LABS: PHOSPHOROUS 3.4 mg/dL (2.5-4.9)
[2016-10-23 06:36] LABS: CALCIUM 7.6 mg/dL (8.5-10.1)
[2016-10-23] MEDS: HEPARIN - 25,000 UNIT in SODIUM CHLORIDE 495 ML IV SCH (06:40)
[2016-10-23 06:42] LABS: BILIRUBIN,TOTAL 0.6 mg/dL (0.2-1.0); CREATININE 3.1 mg/dL (0.55-1.02); TOT PROT 5.8 g/dl (6.4-8.2); TROPONIN I 0.06 ng/ml (0.00-0.05)
[2016-10-23 07:24] LABS: ARTERIAL BLD GAS O2 SATURATION 97.4 % (90-98.9); ARTERIAL BLOOD GAS BASE EXCESS 5.1 meq/l (-2-2); ARTERIAL BLOOD GAS HCO3 28.1 meq/L (22-26)
[2016-10-23 07:25] LABS: ALLENS TEST POSITIVE; ART PUNCT SITE RIGHT RADIAL; LPM/O2% 40; MECH. VENT. YES; PT. ON O2? YES; TYPE OF O2 VENT; VENT RATE 10; VT/PRESS 350
--- NOTE | 2016-10-23 07:30 | PN ---
Progress Note, Physician Chief Complaint: ID ICU follow up for this 80 year old female with ESRD and history of declining health with weight loss who had a cardiac arrest yesterday. We were asked to see her for fever and pulmonary infiltrate. Prior history of ovarian cancer per notes. Currently intubated and on some pressors. Had been originally sent form the custodial of abd pain and fever. At present intubated pressors and moving around some. - Current Medication List Current Medications: Active Medications Heparin Sodium (Porcine) (Heparin -) 1,000 unit IVPUSH PRN PRN PRN Reason: Heparin Heparin Sodium (Porcine) (Heparin -) 5,000 unit IVPUSH PRN PRN PRN Reason: Heparin Heparin Sodium (Porcine) 25, (000 unit/ Sodium Chloride) 500 mls @ 14 mls/hr IV TITR MARIE; 700 UNIT/HR PRN Reason: Protocol Last Admin: 10/23/16 06:40 Dose: 13 mls/hr Propofol (Diprivan -) 100 mls @ 1.438 mls/hr IVPB TITR MARIE; 5 MCG/KG/MIN PRN Reason: Protocol Last Titration: 10/23/16 06:13 Dose: 5 mcg/kg/min Piperacillin Sod/Tazobactam Sod (Zosyn 2.25gm Ivpb (Pre-Docked)) 50 mls @ 100 mls/hr IVPB Q8H-IV MARIE Last Admin: 10/23/16 01:40 Dose: 100 mls/hr Norepinephrine Bitartrate 16, (000 mcg/ Dextrose) 500 mls @ 9.37 mls/hr IV TITR MARIE; 5 MCG/MIN PRN Reason: Protocol Last Titration: 10/23/16 03:00 Dose: 8 mcg/min Levetiracetam (Keppra Injection -) 500 mg IVPB BID MARIE Last Admin: 10/22/16 21:42 Dose: 500 mg Pneumococcal 13-Valent Conj Vacc (Prevnar 13 Syringe -) 0.5 ml IM .ONCE ONE Stop: 10/23/16 10:01 - Objective Vital Signs: Vital Signs Temperature 97.0 F L 10/23/16 06:05 Pulse Rate 72 10/23/16 06:05 Respiratory Rate 10 L 10/23/16 06:29 Blood Pressure 104/53 10/23/16 06:05 O2 Sat by Pulse Oximetry (%) 100 10/22/16 20:58 Constitutional: Yes: Other (INtubated) Neck: Yes: WNL Cardiovascular: Yes: Regular Rate and Rhythm, S1, S2 Respiratory: Yes: WNL, Regular, CTA Bilaterally. No: Rhonchi Gastrointestinal: Yes: Soft, Other (firm). No: Palpable Mass, Tenderness, Tenderness, Epigastrium, Tenderness, Rebound Extremities: Yes: Other (AVF left upper ext) Labs: CBC, BMP 10/23/16 05:15 10/23/16 05:15 INR, PTT INR 1.83 (0.82-1.09) H 10/22/16 04:45 Problem List - Problems (1) Cardiopulmonary arrest Code(s): I46.9 - CARDIAC ARREST, CAUSE UNSPECIFIED (2) ESRD (end stage renal disease) on dialysis Code(s): N18.6 - END STAGE RENAL DISEASE Z99.2 - DEPENDENCE ON RENAL DIALYSIS (3) Pneumonia Code(s): J18.9 - PNEUMONIA, UNSPECIFIED ORGANISM (4) Respiratory failure Code(s): J96.90 - RESPIRATORY FAILURE, UNSP, UNSP W HYPOXIA OR HYPERCAPNIA Assessment/Plan Microbiology 10/22/16 04:00 Nasopharyngeal Swab Influenza Types A,B Antigen (JARRET) - Final 10/22/16 04:00 Nasopharyngeal Swab - Final 10/22/16 00:30 Blood - Peripheral Venous Blood Culture - Preliminary NO GROWTH OBTAINED AFTER 24 HOURS, INCUBATION TO CONTINUE FOR 4 DAYS. 10/22/16 00:30 Blood - Peripheral Venous Blood Culture - Preliminary NO GROWTH OBTAINED AFTER 24 HOURS, INCUBATION TO CONTINUE FOR 4 DAYS. Laboratory Tests 10/22/16 10/23/16 10/23/16 04:45 05:15 05:15 WBC 11.4 H D Hgb 9.1 L Hct 27.3 L Plt Count 65 L D INR 1.83 H ABG pCO2 at Pt Temp Oxygen Flow Rate BUN 27 H D AST 15 ALT 9 L Alkaline Phosphatase 74 10/23/16 07:10 WBC Hgb Hct Plt Count INR ABG pCO2 at Pt Temp 36.0 Oxygen Flow Rate 40 BUN AST ALT Alkaline Phosphatase Assessment 1. Cardiopulmonary arrest 2. Respiratory arrest 3. Pneumonia bilateral infiltrates 4. ESRD 5. History of Ovarian cancer Plan Continue Zosyn as ordered along with Vanco given Sputum c/s 38 minutes of ICU time spent examining and discussing waith nursing staff Helen ZHAO
[2016-10-23] MEDS: levETIRAcetam 500 MG/5 ML INJECTION VIAL IVPB SCH ×2 (09:22→22:20)
[2016-10-23] MEDS ORDERED: PNEUMOC 13-VAL CONJ-DIP CRM/PF 0.5 ML DISP.SYRIN IM ONE (10:00)
--- NOTE | 2016-10-23 10:38 | EKG ---
Test Reason : Blood Pressure : / mmHG Vent. Rate : 070 BPM Atrial Rate : 070 BPM P-R Int : 248 ms QRS Dur : 088 ms QT Int : 432 ms P-R-T Axes : 046 -04 011 degrees QTc Int : 466 ms SINUS RHYTHM WITH 1ST DEGREE A-V BLOCK WITH OCCASIONAL PREMATURE VENTRICULAR COMPLEXES LOW VOLTAGE QRS BORDERLINE ECG WHEN COMPARED WITH ECG OF 21-OCT-2016 23:57, T WAVE INVERSION LESS EVIDENT IN ANTEROLATERAL LEADS Confirmed by JIMMY SINGH MD ([id number]) on 10/23/2016 10:38:30 AM Referred By: Danita CALIX Confirmed By:JIMMY SINGH MD
--- NOTE | 2016-10-23 11:12 | PN ---
Progress Note, Physician History of Present Illness: Renal f/u Pt off propofol from this am On Levophed at 4 mcg/min Non purposeful movement noted TNI trending down EKG not available from today NSR on telemetry FiO2 at 40% + DVT on doppler so heparin continued - Current Medication List Current Medications: Active Medications Heparin Sodium (Porcine) (Heparin -) 1,000 unit IVPUSH PRN PRN PRN Reason: Heparin Heparin Sodium (Porcine) (Heparin -) 5,000 unit IVPUSH PRN PRN PRN Reason: Heparin Heparin Sodium (Porcine) 25, (000 unit/ Sodium Chloride) 500 mls @ 14 mls/hr IV TITR MARIE; 700 UNIT/HR PRN Reason: Protocol Last Titration: 10/23/16 07:35 Dose: 650 unit/hr Propofol (Diprivan -) 100 mls @ 1.438 mls/hr IVPB TITR MARIE; 5 MCG/KG/MIN PRN Reason: Protocol Last Titration: 10/23/16 08:05 Dose: 0 mcg/kg/min Piperacillin Sod/Tazobactam Sod (Zosyn 2.25gm Ivpb (Pre-Docked)) 50 mls @ 100 mls/hr IVPB Q8H-IV MARIE Last Admin: 10/23/16 09:22 Dose: 100 mls/hr Norepinephrine Bitartrate 16, (000 mcg/ Dextrose) 500 mls @ 9.37 mls/hr IV TITR MARIE; 5 MCG/MIN PRN Reason: Protocol Last Titration: 10/23/16 08:04 Dose: 6 mcg/min Levetiracetam (Keppra Injection -) 500 mg IVPB BID MARIE Last Admin: 10/23/16 09:22 Dose: 500 mg - Objective Vital Signs: Vital Signs Temperature 97.0 F L 10/23/16 06:05 Pulse Rate 79 10/23/16 10:11 Respiratory Rate 13 10/23/16 10:11 Blood Pressure 108/53 10/23/16 08:04 O2 Sat by Pulse Oximetry (%) 100 10/23/16 10:12 Constitutional: Yes: No Distress Cardiovascular: Yes: S1, S2 Respiratory: Yes: Other (Equal air entry Bilaterally) Gastrointestinal: Yes: Soft. No: Distention Extremities: Yes: Other (AVF in the LUE with thrill) Edema: LLE: Trace, RLE: Trace Neurological: Yes: Other (Poorly responsive) Labs: CBC, BMP 10/23/16 05:15 10/23/16 05:15 INR, PTT INR 1.83 (0.82-1.09) H 10/22/16 04:45 Laboratory Tests 10/23/16 05:15 PTT (Actin FS) 74.7 H Laboratory Tests 10/23/16 10/23/16 05:15 05:15 Phosphorus 3.4 D Magnesium 2.0 AST 15 ALT 9 L Alkaline Phosphatase 74 Creatine Kinase 19 L Troponin I 0.06 H Total Protein 5.8 L D Albumin 1.0 L - ....Imaging Chest X-ray: Report Reviewed, Image Reviewed EKG: Other (N/A at this time) Assessment/Plan Impression S/P Cardio Respiratory Arrest- R/O Sepsis and cardiac etiology Pneumonia with respiratory failure DVT of right leg S/P Seizure following the arrest- R/O anoxic encephalopathy ESRD Severe hypoalbuminemia Right renal complex cyst > 5cms in diameter Anemia and Thrombocytopenia H/O HCV H/O GIB Plan Hold on HD today will wait an additional 24 hours to allow pt tpo become hemodynamically more stabilized- No indication for acute HD at this time To pull back the ET tube Taper off the Levophed Wean as tolerated Trial of feeds via NGT once off pressors Heparin as per protocol Empiric Abx EEG No BP or IV in the LUE Evaluation for the right renal complex cyst if and when pt improves Discussed with CCM and ICU team made aware of the plan Dr Mackay
--- NOTE | 2016-10-23 11:39 | PN ---
Teaching Attending Note Name of Resident: Howard Shea ATTENDING PHYSICIAN STATEMENT I saw and evaluated the patient. I reviewed the resident's note and discussed the case with the resident. I agree with the resident's findings and plan as documented. SUBJECTIVE: Pt seen and examined in the ICU. Remains intubated, poorly responsive off sedation but moving head spontaneously with purposeful movements. Limbs flaccid. OBJECTIVE: Last Vital Signs Temp Pulse Resp BP Pulse Ox 97.0 F L 79 13 107/52 100 10/23/16 06:05 10/23/16 10:11 10/23/16 10:11 10/23/16 10:00 10/23/16 10:12 Intake & Output 10/20/16 10/21/16 10/22/16 10/23/16 23:59 23:59 23:59 23:59 Intake Total 1042 616 Output Total 1 Balance 1042 615 Weight 112 lb 105 lb 11.2 oz 102 lb 15.294 oz Gen: intubated, poorly responsive Heart: RRR Lung: scattered rhonchi Abd: soft, nontender Ext: no edema Neuro: PERRL, spontaneous head movements, +cough, gag CBC, BMP 10/23/16 05:15 10/23/16 05:15 Active Medications Heparin Sodium (Porcine) (Heparin -) 1,000 unit IVPUSH PRN PRN PRN Reason: Heparin Heparin Sodium (Porcine) (Heparin -) 5,000 unit IVPUSH PRN PRN PRN Reason: Heparin Heparin Sodium (Porcine) 25, (000 unit/ Sodium Chloride) 500 mls @ 14 mls/hr IV TITR MARIE; 700 UNIT/HR PRN Reason: Protocol Last Titration: 10/23/16 07:35 Dose: 650 unit/hr Propofol (Diprivan -) 100 mls @ 1.438 mls/hr IVPB TITR MARIE; 5 MCG/KG/MIN PRN Reason: Protocol Last Titration: 10/23/16 08:05 Dose: 0 mcg/kg/min Piperacillin Sod/Tazobactam Sod (Zosyn 2.25gm Ivpb (Pre-Docked)) 50 mls @ 100 mls/hr IVPB Q8H-IV MARIE Last Admin: 10/23/16 09:22 Dose: 100 mls/hr Norepinephrine Bitartrate 16, (000 mcg/ Dextrose) 500 mls @ 9.37 mls/hr IV TITR MARIE; 5 MCG/MIN PRN Reason: Protocol Last Titration: 10/23/16 08:04 Dose: 6 mcg/min Levetiracetam (Keppra Injection -) 500 mg IVPB BID MARIE Last Admin: 10/23/16 09:22 Dose: 500 mg ASSESSMENT AND PLAN: s/p PEA Cardiopulmonary Arrest s/p Hypothermia Protocol r/o Pneumonia Shock - Septic vs Cardiogenic vs Obstructive Lactic Acidosis ESRD on HD r/o Anoxic Encephalopathy RLE distal DVT - continue empiric antibiotics - f/u cultures - taper levophed gtt to maintain MAP >65 - minimize sedation to assess mental status - continue anticoagulatin - HD per renal - for EEG - on empiric antiepileptics - echocardiogram to evaluate LVEF, RVSP - consider CTA chest to r/o PE as etiology of arrest if RVSP elevated - enteral feeds when pressor requirement improved - DVT/GI prophylaxis - continue ICU monitoring
--- NOTE | 2016-10-23 14:39 | PN ---
Physical Exam: SUBJECTIVE: Patient seen and examined at bedside. NO overnight events. Patient is intubated and off sedation. Minimally responsive. Just moves head. OBJECTIVE: Vital Signs Period Temp Pulse Resp BP Sys/Hodgson Pulse Ox Last 24 Hr 95.2 F-97.0 F 66-79 10-15 90-112/40-62 100-100 GENERAL: Intubated and minimally responsive. HEAD: alopecia EYES: PERRLA, No occular movement. ENT: Nares patent. NECK: supple and no jvd. RIJ in place. LUNGS:intubated and scattered rhonchi. HEART: Regular rate and rhythm, S1, S2 without murmur, rub or gallop. ABDOMEN: Soft, nontender, nondistended, EXTREMITIES: no edema. NEUROLOGICAL: +Gag , spontaneous head movements. PSYCH:unable to access Laboratory Results - last 24 hr 10/22/16 10/22/16 10/22/16 16:30 16:30 20:00 WBC 7.6 RBC 2.55 L Hgb 8.4 L Hct 25.5 L MCV 100.3 H MCHC 32.8 RDW 20.5 H Plt Count 44 L MPV 10.7 Neutrophils % 87.0 H Lymphocytes % 7.3 L D Monocytes % 5.4 Eosinophils % 0.1 Basophils % 0.2 PTT (Actin FS) 104.9 H D Puncture Site ABG pH ABG pCO2 at Pt Temp ABG pO2 at Pt Temp ABG HCO3 ABG O2 Sat (Measured) ABG O2 Content ABG Base Excess Ventura Test O2 Delivery Device Oxygen Flow Rate Vent Mode Vent Rate Mechanical Rate PEEP Pressure Support Vent Sodium 139 Potassium 3.7 D Chloride 104 Carbon Dioxide 25 Anion Gap 10 BUN 21 H Creatinine 2.5 H Creat Clearance w eGFR Random Glucose 75 Calcium 6.7 L* Phosphorus 1.9 L D Magnesium Total Bilirubin AST ALT Alkaline Phosphatase Creatine Kinase Troponin I 0.08 H Total Protein Albumin Random Vancomycin 10/23/16 10/23/16 10/23/16 00:00 05:15 05:15 WBC 11.4 H D RBC 2.74 L Hgb 9.1 L Hct 27.3 L MCV 99.6 H MCHC 33.4 RDW 20.4 H Plt Count 65 L D MPV 11.2 H Neutrophils % 91.1 H Lymphocytes % 4.1 L D Monocytes % 4.5 Eosinophils % 0.2 D Basophils % 0.1 PTT (Actin FS) 83.2 H Puncture Site ABG pH ABG pCO2 at Pt Temp ABG pO2 at Pt Temp ABG HCO3 ABG O2 Sat (Measured) ABG O2 Content ABG Base Excess Ventura Test O2 Delivery Device Oxygen Flow Rate Vent Mode Vent Rate Mechanical Rate PEEP Pressure Support Vent Sodium 132 L Potassium 4.7 D Chloride 95 L Carbon Dioxide 27 Anion Gap 10 BUN 27 H D Creatinine 3.1 H D Creat Clearance w eGFR 14.49 Random Glucose 115 H D Calcium 7.6 L Phosphorus Magnesium Total Bilirubin 0.6 AST 15 ALT 9 L Alkaline Phosphatase 74 Creatine Kinase 19 L Troponin I 0.06 H Total Protein 5.8 L D Albumin 1.0 L Random Vancomycin 10/23/16 10/23/16 10/23/16 05:15 05:15 07:10 WBC RBC Hgb Hct MCV MCHC RDW Plt Count MPV Neutrophils % Lymphocytes % Monocytes % Eosinophils % Basophils % PTT (Actin FS) 74.7 H Puncture Site Right radial ABG pH 7.50 H ABG pCO2 at Pt Temp 36.0 ABG pO2 at Pt Temp 167.0 H* D ABG HCO3 28.1 H ABG O2 Sat (Measured) 97.4 ABG O2 Content 12.9 L ABG Base Excess 5.1 H Ventura Test Positive O2 Delivery Device Vent Oxygen Flow Rate 40 Vent Mode A/c Vent Rate 10 Mechanical Rate Yes PEEP 5.0 Pressure Support Vent 350 Sodium Potassium Chloride Carbon Dioxide Anion Gap BUN Creatinine Creat Clearance w eGFR Random Glucose Calcium Phosphorus 3.4 D Magnesium 2.0 Total Bilirubin AST ALT Alkaline Phosphatase Creatine Kinase Troponin I Total Protein Albumin Random Vancomycin 4.273 Active Medications Generic Name Dose Route Start Last Admin Trade Name Freq PRN Reason Stop Dose Admin Heparin Sodium (Porcine) 1,000 unit 10/22/16 04:52 Heparin - IVPUSH PRN PRN Heparin Heparin Sodium (Porcine) 5,000 unit 10/22/16 04:52 Heparin - IVPUSH PRN PRN Heparin Heparin Sodium (Porcine) 25, 500 mls @ 14 mls/hr 10/22/16 05:00 10/23/16 07:35 000 unit/ Sodium Chloride IV 650 unit/hr TITR MARIE Titration Protocol 700 UNIT/HR Propofol 100 mls @ 1.438 mls/hr 10/22/16 09:00 10/23/16 08:05 Diprivan - IVPB 0 mcg/kg/min TITR MARIE Titration Protocol 5 MCG/KG/MIN Piperacillin Sod/Tazobactam Sod 50 mls @ 100 mls/hr 10/22/16 18:00 10/23/16 09: 22 Zosyn 2.25gm Ivpb (Pre-Docked) IVPB 100 mls/hr Q8H-IV MARIE Administration Norepinephrine Bitartrate 16, 500 mls @ 9.37 mls/hr 10/22/16 23:15 10/23/16 08: 04 000 mcg/ Dextrose IV 6 mcg/min TITR MARIE Titration Protocol 5 MCG/MIN Levetiracetam 500 mg 10/22/16 22:00 10/23/16 09:22 Keppra Injection - IVPB 500 mg BID MARIE Administration ASSESSMENT/PLAN: 80 yo F F with PMHx of HCV, HTN , ESRD (HD MWF) admitted to ICU s/p Cariopulmonary arrest. Neuro: * minimally responsive. * Anoxic encephalopathy * EEG pending * Continue Keppra 200mg PO BID Pulm: * Intubated and off sedation. * AC mechanical ventilation on 50%Fio2 * Continue Zosyn 2.25gm CV: * US shows RLE DVT - continue heparin drip * Currently on 8cmg of Levophed will decrease as tolerated maintain MAP>65 * Echo pending . Renal: * NO HD today as per nephrology * repeat CMP in AM * avoid nephrotoxins. F/E/N * NO IVF at this time * HD PRN * WIll start enteral feeds once off pressors. Visit type - Emergency Visit Emergency Visit: Yes ED Registration Date: 10/22/16 Care time: The patient presented to the Emergency Department on the above date and was hospitalized for further evaluation of their emergent condition. - New Patient This patient is new to me today: Yes Date on this admission: 10/23/16 - Critical Care Critical Care patient: Yes Total Critical Care Time (in minutes): 33 Critical Care Statement: The care of this patient involved high complexity decision making to prevent further life threatening deterioration of the patient 's condition and/or to evalute & treat vital organ system(s) failure or risk of failure.
--- NOTE | 2016-10-23 15:50 | PN ---
Progress Note, Physician - Current Medication List Current Medications: Active Medications Heparin Sodium (Porcine) (Heparin -) 1,000 unit IVPUSH PRN PRN PRN Reason: Heparin Heparin Sodium (Porcine) (Heparin -) 5,000 unit IVPUSH PRN PRN PRN Reason: Heparin Heparin Sodium (Porcine) 25, (000 unit/ Sodium Chloride) 500 mls @ 14 mls/hr IV TITR MARIE; 700 UNIT/HR PRN Reason: Protocol Last Titration: 10/23/16 07:35 Dose: 650 unit/hr Propofol (Diprivan -) 100 mls @ 1.438 mls/hr IVPB TITR MARIE; 5 MCG/KG/MIN PRN Reason: Protocol Last Titration: 10/23/16 08:05 Dose: 0 mcg/kg/min Piperacillin Sod/Tazobactam Sod (Zosyn 2.25gm Ivpb (Pre-Docked)) 50 mls @ 100 mls/hr IVPB Q8H-IV MARIE Last Admin: 10/23/16 09:22 Dose: 100 mls/hr Norepinephrine Bitartrate 16, (000 mcg/ Dextrose) 500 mls @ 9.37 mls/hr IV TITR MARIE; 5 MCG/MIN PRN Reason: Protocol Last Titration: 10/23/16 08:04 Dose: 6 mcg/min Levetiracetam (Keppra Injection -) 500 mg IVPB BID MARIE Last Admin: 10/23/16 09:22 Dose: 500 mg - Objective Vital Signs: Vital Signs Temperature 98.9 F 10/23/16 14:00 Pulse Rate 79 10/23/16 14:00 Respiratory Rate 13 10/23/16 15:37 Blood Pressure 104/47 10/23/16 14:00 O2 Sat by Pulse Oximetry (%) 100 10/23/16 10:12 Cardiovascular: Yes: Regular Rate and Rhythm, S1, S2 Respiratory: Yes: Diminished Gastrointestinal: Yes: Normal Bowel Sounds, Soft Edema: No Labs: CBC, BMP 10/23/16 05:15 10/23/16 05:15 INR, PTT INR 1.83 (0.82-1.09) H 10/22/16 04:45 Problem List - Problems (1) Cardiopulmonary arrest Code(s): I46.9 - CARDIAC ARREST, CAUSE UNSPECIFIED (2) DVT (deep venous thrombosis) Code(s): I82.409 - ACUTE EMBOLISM AND THOMBOS UNSP DEEP VN UNSP LOWER EXTREMITY (3) ESRD (end stage renal disease) on dialysis Code(s): N18.6 - END STAGE RENAL DISEASE Z99.2 - DEPENDENCE ON RENAL DIALYSIS (4) Pneumonia Code(s): J18.9 - PNEUMONIA, UNSPECIFIED ORGANISM (5) Respiratory failure Code(s): J96.90 - RESPIRATORY FAILURE, UNSP, UNSP W HYPOXIA OR HYPERCAPNIA Assessment/Plan (1) Cardiac arrest Assessment/Plan: FOLLOW CE CARDIO CONSULT DUPLEX OF LE-- DVT CTA PENDING IV HEPARIN Code(s): I46.9 - CARDIAC ARREST, CAUSE UNSPECIFIED (2) ESRD (end stage renal disease) on dialysis Assessment/Plan: RENAL CONSULT FOLLOW RENAL FUNCTION Code(s): N18.6 - END STAGE RENAL DISEASE Z99.2 - DEPENDENCE ON RENAL DIALYSIS (3) Pneumonia Assessment/Plan: IV ABX ID CONSULT FOLLOW LABS Code(s): J18.9 - PNEUMONIA, UNSPECIFIED ORGANISM (4) Respiratory failure Assessment/Plan: VENT SETTING PER PULM FOLLOW SAT Code(s): J96.90 - RESPIRATORY FAILURE, UNSP, UNSP W HYPOXIA OR HYPERCAPNIA PRODUCTION HAND FM
--- NOTE | 2016-10-23 16:28 | PN ---
Progress Note, Physician History of Present Illness: Started on norepinephrine -. being titrated No purposeful mvt, off propofol - Current Medication List Current Medications: Active Medications Heparin Sodium (Porcine) (Heparin -) 1,000 unit IVPUSH PRN PRN PRN Reason: Heparin Heparin Sodium (Porcine) (Heparin -) 5,000 unit IVPUSH PRN PRN PRN Reason: Heparin Heparin Sodium (Porcine) 25, (000 unit/ Sodium Chloride) 500 mls @ 14 mls/hr IV TITR MARIE; 700 UNIT/HR PRN Reason: Protocol Last Titration: 10/23/16 07:35 Dose: 650 unit/hr Propofol (Diprivan -) 100 mls @ 1.438 mls/hr IVPB TITR MARIE; 5 MCG/KG/MIN PRN Reason: Protocol Last Titration: 10/23/16 08:05 Dose: 0 mcg/kg/min Piperacillin Sod/Tazobactam Sod (Zosyn 2.25gm Ivpb (Pre-Docked)) 50 mls @ 100 mls/hr IVPB Q8H-IV MARIE Last Admin: 10/23/16 09:22 Dose: 100 mls/hr Norepinephrine Bitartrate 16, (000 mcg/ Dextrose) 500 mls @ 9.37 mls/hr IV TITR MARIE; 5 MCG/MIN PRN Reason: Protocol Last Titration: 10/23/16 08:04 Dose: 6 mcg/min Levetiracetam (Keppra Injection -) 500 mg IVPB BID MARIE Last Admin: 10/23/16 09:22 Dose: 500 mg - Objective Vital Signs: Vital Signs Temperature 98.9 F 10/23/16 14:00 Pulse Rate 79 10/23/16 14:00 Respiratory Rate 13 10/23/16 15:37 Blood Pressure 104/47 10/23/16 14:00 O2 Sat by Pulse Oximetry (%) 100 10/23/16 10:12 Constitutional: Yes: No Distress Eyes: Yes: Other (close) HENT: Yes: Other (ETT in place) Neck: Yes: Supple Cardiovascular: Yes: Regular Rate and Rhythm, Murmur (at base) Respiratory: Yes: CTA Bilaterally (ant and laterally) Gastrointestinal: Yes: Normal Bowel Sounds Extremities: Yes: Other (warm) Edema: No Peripheral Pulses WNL: Yes Neurological: Yes: Unresponsive Labs: CBC, BMP 10/23/16 05:15 10/23/16 05:15 INR, PTT INR 1.83 (0.82-1.09) H 10/22/16 04:45 - ....Imaging Chest X-ray: Report Reviewed, Image Reviewed EKG: Report Reviewed, Image Reviewed Other: Other (tele -. SR Echo (10/23/16) -. Nl LV size with mildly reduced EF at 49% with mild global HK, mild MR/AI, mild-mod PI, nl RV, PASP 30-40., small PE.) Assessment/Plan 80 yo female with HTN, ESRD -> HD, ovarian CA, here with abd pain -. cardiopulmonary arrest -> seizures -> now intubated, on norepineprhrine Etiology not clear. However, pt with right calf DVT -. raising question of PE ( though reported rhythm was asystole. PEA may have degenerated into asystole) She remains unresponsive, after hypothermia protocol Trop I are indeterminate Echo with mild global LV dysfunction and normal right heart, PASP 30-40 Rec: Try to take off norepinehrine Chest CT when stable enough - cont heparin Cont anti-seizure meds per neuro Per IM/ID/pulm Neuro status will have major impact on further management Prognosis guarded
[2016-10-23] MEDS: ACETAMINOPHEN 1000 MG/100 ML VIAL (NON FORMULARY) IVPB PRN (17:27)
--- NOTE | 2016-10-23 23:57 | PN ---
Progress Note, Physician Chief Complaint: lethargy , altered mental status, intubated - Current Medication List Current Medications: Active Medications Acetaminophen (Ofirmev Injection -) 1,000 mg IVPB Q6H PRN PRN Reason: FEVER OR PAIN Stop: 10/24/16 11:21 Last Admin: 10/23/16 17:27 Dose: 1,000 mg Heparin Sodium (Porcine) (Heparin -) 1,000 unit IVPUSH PRN PRN PRN Reason: Heparin Heparin Sodium (Porcine) (Heparin -) 5,000 unit IVPUSH PRN PRN PRN Reason: Heparin Heparin Sodium (Porcine) 25, (000 unit/ Sodium Chloride) 500 mls @ 14 mls/hr IV TITR MARIE; 700 UNIT/HR PRN Reason: Protocol Last Titration: 10/23/16 07:35 Dose: 650 unit/hr Propofol (Diprivan -) 100 mls @ 1.438 mls/hr IVPB TITR MARIE; 5 MCG/KG/MIN PRN Reason: Protocol Last Titration: 10/23/16 08:05 Dose: 0 mcg/kg/min Piperacillin Sod/Tazobactam Sod (Zosyn 2.25gm Ivpb (Pre-Docked)) 50 mls @ 100 mls/hr IVPB Q8H-IV MARIE Last Admin: 10/23/16 17:27 Dose: 100 mls/hr Norepinephrine Bitartrate 16, (000 mcg/ Dextrose) 500 mls @ 9.37 mls/hr IV TITR MARIE; 5 MCG/MIN PRN Reason: Protocol Last Titration: 10/23/16 08:04 Dose: 6 mcg/min Levetiracetam (Keppra Injection -) 500 mg IVPB BID MARIE Last Admin: 10/23/16 22:20 Dose: 500 mg - Objective Vital Signs: Vital Signs Temperature 98.3 F 10/23/16 22:00 Pulse Rate 75 10/23/16 22:00 Respiratory Rate 11 L 10/23/16 23:47 Blood Pressure 94/49 10/23/16 22:00 O2 Sat by Pulse Oximetry (%) 100 10/23/16 20:25 Constitutional: Yes: Mild Distress Eyes: Yes: Conjunctiva Clear, EOM Intact, PERRL Neck: Yes: WNL, Supple, Trachea Midline Cardiovascular: Yes: Regular Rate and Rhythm, S1, S2 Respiratory: Yes: Regular, CTA Bilaterally, Mechanically Ventilated Gastrointestinal: Yes: Normal Bowel Sounds, Soft Genitourinary: Yes: WNL Edema: Yes Edema: LUE: 1+, RUE: 1+, LLE: 1+, RLE: 1+ Neurological: Yes: Aphasia, Babinski negative, Cran Nerves II-XII Intact, Weakness (at pain stimulation she withdraws LUE, RUE and LLE. No movement in the RLE but grimacing and open eyes at pain stimulation. Not following commands.) Labs: CBC, BMP 10/23/16 05:15 10/23/16 05:15 INR, PTT INR 1.83 (0.82-1.09) H 10/22/16 04:45 - ....Imaging Cat Scan: Report Reviewed, Image Reviewed Problem List - Problems (1) Metabolic encephalopathy Code(s): G93.41 - METABOLIC ENCEPHALOPATHY (2) Anoxic brain damage Code(s): G93.1 - ANOXIC BRAIN DAMAGE, NOT ELSEWHERE CLASSIFIED Assessment/Plan 80 year old woman with history of hepatitis C, GI bleed, hypertension, ESRD on HD, presented with abdominal discomfort, was noted to have sudden cardiac arrest of unclear etiology. As per has been slowly declining in terms of health since June and has been in and out of hospitals and nursing facilities since. In Ed chest xray revealed right lower lobe consolidation, and patient was initiated on therapy for HCAP. Was noted to be unresponsive and pulseless. ACLS provided for ten minutes.In ICU the patient was noted to be hypotensive. CT head no acute abnormalites. Exam : comatose, responsive at pain stimulation. intermittent decorticate posturing upper extremities with tactile stimulation . Impression: anoxic brain injury, metabolic encephalopathy. Plan: - eeg to rule out seizures. - DVT prophylaxis. - consider MRI brain. Critical Care time spent in ICU 25 min. Thank you for this consult.
[2016-10-24 00:06] LABS: HBeAG Negative (Negative); HEP B SURFACE AB Non Reactive (.); HEP BE AB Negative (Negative)
[2016-10-24] MEDS: PIPERACILLIN/TAZOB 2.25 GM 50 ML IVPB SCH ×3 (02:06→17:26)
[2016-10-24 06:10] LABS: BASOPHIL 0.1 % (0-2.0); EOSINOPHIL 0.7 % (0-4.5); MCH 33.3 pg (25.7-33.7); MCHC 33.5 g/dl (32.0-36.0); MEAN CELL VOLUME 99.5 fl (80-96); MEAN PLT VOLUME 11.3 fl (7.5-11.1); NEUTROPHILS 84.9 % (42.8-82.8); PLATELET COUNT 62 K/MM3 (134-434); RDW 20.4 % (11.6-15.6); WHITE BLOOD COUNT 7.5 K/mm3 (4.0-10.0)
[2016-10-24] MEDS: NOREPINEPHRINE BITARTRATE 16,000 MCG in DEXTROSE 5%-WATER - 484 ML IV SCH (06:32)
[2016-10-24] MEDS: HEPARIN - 25,000 UNIT in SODIUM CHLORIDE 495 ML IV SCH ×2 (06:36)
[2016-10-24 06:37] LABS: CALCIUM 7.4 mg/dL (8.5-10.1)
[2016-10-24 06:43] LABS: ALBUMIN 1.1 g/dl (3.4-5.0); BILIRUBIN,TOTAL 0.6 mg/dL (0.2-1.0); CREATININE 3.6 mg/dL (0.55-1.02); PHOSPHOROUS 3.4 mg/dL (2.5-4.9); TOT PROT 5.6 g/dl (6.4-8.2)
[2016-10-24 07:17] LABS: ARTERIAL BLD GAS O2 SATURATION 97.2 % (90-98.9); ARTERIAL BLOOD GAS BASE EXCESS 4.1 meq/l (-2-2); ARTERIAL BLOOD GAS HCO3 27.4 meq/L (22-26)
[2016-10-24 07:18] LABS: ALLENS TEST POSITIVE; ART PUNCT SITE RIGHT RADIAL; ARTERIAL BLOOD GAS pH 7.49 (7.35-7.45); LPM/O2% 35; MECH. VENT. YES; PT. ON O2? YES; TYPE OF O2 VENT; VENT RATE 10; VT/PRESS 350
--- NOTE | 2016-10-24 08:45 | PN ---
Progress Note (short form) - Note Progress Note: eyes are open NAD doesnot follow commands Vital Signs Period Temp Pulse Resp BP Sys/Hodgson Pulse Ox Last 24 Hr 98.3 F-100.1 F 75-89 10-16 91-125/43-95 100-100 cor-rrr lungs clear abd soft, nt ext no edema cxray RLL infiltrate CBC, BMP 10/24/16 05:15 10/24/16 05:15 Microbiology 10/23/16 08:00 Sputum - Endotrachea Suction/Ventilator Gram Stain - Final 10/23/16 07:30 Sputum - Endotrachea Suction/Ventilator Gram Stain - Final 10/22/16 00:30 Blood - Peripheral Venous Blood Culture - Preliminary NO GROWTH OBTAINED AFTER 48 HOURS, INCUBATION TO CONTINUE FOR 3 DAYS. 10/22/16 00:30 Blood - Peripheral Venous Blood Culture - Preliminary NO GROWTH OBTAINED AFTER 48 HOURS, INCUBATION TO CONTINUE FOR 3 DAYS. 10/22/16 04:00 Nasopharyngeal Swab Respiratory Virus Panel - Preliminary 10/22/16 04:00 Nasopharyngeal Swab Influenza Types A,B Antigen (JARRET) - Final 10/22/16 04:00 Nasopharyngeal Swab - Final Active Medications Acetaminophen (Ofirmev Injection -) 1,000 mg IVPB Q6H PRN PRN Reason: FEVER OR PAIN Stop: 10/24/16 11:21 Last Admin: 10/23/16 17:27 Dose: 1,000 mg Fentanyl (Sublimaze Injection -) 50 mcg IVPUSH Q4H PRN PRN Reason: PAIN Stop: 10/25/16 06:14 Heparin Sodium (Porcine) (Heparin -) 1,000 unit IVPUSH PRN PRN PRN Reason: Heparin Heparin Sodium (Porcine) (Heparin -) 5,000 unit IVPUSH PRN PRN PRN Reason: Heparin Heparin Sodium (Porcine) 25, (000 unit/ Sodium Chloride) 500 mls @ 14 mls/hr IV TITR MARIE; 700 UNIT/HR PRN Reason: Protocol Last Admin: 10/24/16 06:36 Dose: 13 mls/hr Propofol (Diprivan -) 100 mls @ 1.438 mls/hr IVPB TITR MARIE; 5 MCG/KG/MIN PRN Reason: Protocol Last Titration: 10/23/16 08:05 Dose: 0 mcg/kg/min Piperacillin Sod/Tazobactam Sod (Zosyn 2.25gm Ivpb (Pre-Docked)) 50 mls @ 100 mls/hr IVPB Q8H-IV MARIE Last Admin: 10/24/16 02:06 Dose: 100 mls/hr Norepinephrine Bitartrate 16, (000 mcg/ Dextrose) 500 mls @ 9.37 mls/hr IV TITR MARIE; 5 MCG/MIN PRN Reason: Protocol Last Admin: 10/24/16 06:32 Dose: Not Given Levetiracetam (Keppra Injection -) 500 mg IVPB BID MARIE Last Admin: 10/23/16 22:20 Dose: 500 mg a/p s/p cardiopulmonary arrest resp failure with RLL pneumonia esrd/hd continue zosyn neuro followup Problem List - Problems (1) Cardiopulmonary arrest Code(s): I46.9 - CARDIAC ARREST, CAUSE UNSPECIFIED (2) Respiratory failure Code(s): J96.90 - RESPIRATORY FAILURE, UNSP, UNSP W HYPOXIA OR HYPERCAPNIA (3) Pneumonia Code(s): J18.9 - PNEUMONIA, UNSPECIFIED ORGANISM (4) ESRD (end stage renal disease) on dialysis Code(s): N18.6 - END STAGE RENAL DISEASE Z99.2 - DEPENDENCE ON RENAL DIALYSIS
[2016-10-24] MEDS: levETIRAcetam 500 MG/5 ML INJECTION VIAL IVPB SCH ×2 (09:02→22:13)
[2016-10-24] MEDS: ACETAMINOPHEN 1000 MG/100 ML VIAL (NON FORMULARY) IVPB PRN (10:24)
[2016-10-24] MEDS ORDERED: morphine CARPU-JECT 2 MG/1 ML DISP.SYRIN ONE (10:39)
--- NOTE | 2016-10-24 10:42 | PN ---
Physical Exam: SUBJECTIVE: Patient seen and examined at bedside. Much more responsive today. Following commands. significant improvement. Complaining of CP. OBJECTIVE: Vital Signs Period Temp Pulse Resp BP Sys/Hodgson Pulse Ox Last 24 Hr 98.3 F-100.1 F 75-89 11-25 91-125/43-95 100-100 GENERAL: Awake and following commands. HEAD: Normal with no signs of trauma. EYES: PERRL, sclera anicteric, conjunctiva clear. No ptosis. ENT: Dry mucous membranes. NECK: supple , no jvd, right IJ central line in place. LUNGS: Diminished breath sounds R base, scattered rhonchi HEART: Regular rate and rhythm, S1, S2 without murmur, rub or gallop. ABDOMEN: Soft, nontender, nondistended, normoactive bowel sounds, no guarding, no rebound, no hepatosplenomegaly, no masses. EXTREMITIES: 2+ pulses, warm, well-perfused, no edema. NEUROLOGICAL:awake and following verbal commands. PSYCH: anxious SKIN: Warm, dry, normal turgor, no rashes or lesions noted Laboratory Results - last 24 hr 10/22/16 10/24/16 10/24/16 04:45 05:10 05:15 WBC RBC Hgb Hct MCV MCHC RDW Plt Count MPV Neutrophils % Lymphocytes % Monocytes % Eosinophils % Basophils % PTT (Actin FS) 138.2 H D Puncture Site ABG pH ABG pCO2 at Pt Temp ABG pO2 at Pt Temp ABG HCO3 ABG O2 Sat (Measured) ABG O2 Content ABG Base Excess Ventura Test O2 Delivery Device Oxygen Flow Rate Vent Mode Vent Rate Mechanical Rate PEEP Pressure Support Vent Sodium Potassium Chloride Carbon Dioxide Anion Gap BUN Creatinine Creat Clearance w eGFR Random Glucose Lactic Acid 1.405 Calcium Phosphorus Magnesium Total Bilirubin AST ALT Alkaline Phosphatase Total Protein Albumin Hep Bs Antigen Negative Hep Bs Ab Concentration Non reactive Hep B Core Total Ab Negative Hep B Core IgM Ab Negative Hepatitis Be Antibody Negative Hepatitis Be Antigen Negative Hepatitis C Antibody >11.0 H 10/24/16 10/24/16 10/24/16 05:15 05:15 07:10 WBC 7.5 D RBC 2.37 L Hgb 7.9 L D Hct 23.6 L MCV 99.5 H MCHC 33.5 RDW 20.4 H Plt Count 62 L MPV 11.3 H Neutrophils % 84.9 H Lymphocytes % 6.6 L D Monocytes % 7.7 Eosinophils % 0.7 D Basophils % 0.1 PTT (Actin FS) Puncture Site Right radial ABG pH 7.49 H ABG pCO2 at Pt Temp 36.6 ABG pO2 at Pt Temp 128.0 H D ABG HCO3 27.4 H ABG O2 Sat (Measured) 97.2 ABG O2 Content 11.0 L ABG Base Excess 4.1 H Ventura Test Positive O2 Delivery Device Vent Oxygen Flow Rate 35 Vent Mode A/c Vent Rate 10 Mechanical Rate Yes PEEP 5.0 Pressure Support Vent 350 Sodium 133 L Potassium 4.4 Chloride 95 L Carbon Dioxide 28 Anion Gap 10 BUN 31 H Creatinine 3.6 H Creat Clearance w eGFR 12.20 Random Glucose 68 L D Lactic Acid Calcium 7.4 L Phosphorus 3.4 Magnesium 2.0 Total Bilirubin 0.6 AST 23 D ALT 10 L Alkaline Phosphatase 69 Total Protein 5.6 L Albumin 1.1 L Hep Bs Antigen Hep Bs Ab Concentration Hep B Core Total Ab Hep B Core IgM Ab Hepatitis Be Antibody Hepatitis Be Antigen Hepatitis C Antibody Active Medications Generic Name Dose Route Start Last Admin Trade Name Freq PRN Reason Stop Dose Admin Acetaminophen 1,000 mg 10/23/16 17:20 10/24/16 10:24 Ofirmev Injection - IVPB 10/24/16 11:21 1,000 mg Q6H PRN Administration FEVER OR PAIN Fentanyl 50 mcg 10/24/16 06:05 Sublimaze Injection - IVPUSH 10/25/16 06:14 Q4H PRN PAIN Heparin Sodium (Porcine) 1,000 unit 10/22/16 04:52 Heparin - IVPUSH PRN PRN Heparin Heparin Sodium (Porcine) 5,000 unit 10/22/16 04:52 Heparin - IVPUSH PRN PRN Heparin Heparin Sodium (Porcine) 25, 500 mls @ 14 mls/hr 10/22/16 05:00 10/24/16 06:36 000 unit/ Sodium Chloride IV 13 mls/hr TITR MARIE Administration Protocol 700 UNIT/HR Piperacillin Sod/Tazobactam Sod 50 mls @ 100 mls/hr 10/22/16 18:00 10/24/16 09: 02 Zosyn 2.25gm Ivpb (Pre-Docked) IVPB 100 mls/hr Q8H-IV MARIE Administration Pantoprazole Sodium 100 mls @ 200 mls/hr 10/24/16 10:45 Protonix 40mg Ivpb (Pre-Docked) IVPB BID MARIE Levetiracetam 500 mg 10/22/16 22:00 10/24/16 09:02 Keppra Injection - IVPB 500 mg BID MARIE Administration ASSESSMENT/PLAN: 80 yo F F with PMHx of HCV, HTN , ESRD (HD MWF) admitted to ICU s/p Cariopulmonary arrest. Hospital DAY #3 Neuro: * Neurologic improvement today. * EEG pending * Continue Keppra 200mg PO BID * Pain control - morphine 2mg IV Q4PRN * Followed by Dr. Valenzuela Pulm: * supplemental O2 via 35% Venti Mask * maintain O2 sat >90% * Aspiration precautions. * Continue Zosyn 2.25gm (day 3) CV: * No clear etiology of arrest will get CTA today(-) for PE * US shows RLE DVT - continue heparin drip * Off pressors. * Echo shows normal LV size. Mildly reduced LV func with mild hypokinesis. Mild mitral valve thickening. Mild MR, Mild-Mod TR. Mod , mild AR, mild-mod VT, small pericardial effusion (<1cm) Renal: * HD today after CTA * repeat CMP in AM * avoid nephrotoxins. Prophylaxis: * DVT- Heparin drip * GI- Protonix 40mg BID. F/E/N * NO IVF at this time * HD today - repeat labs in AM * Swallow eval today - will start feeding tomorrow. DISPO: Will continue to Monitor in ICU. Visit type - Emergency Visit Emergency Visit: Yes ED Registration Date: 10/22/16 Care time: The patient presented to the Emergency Department on the above date and was hospitalized for further evaluation of their emergent condition. - New Patient This patient is new to me today: No - Critical Care Critical Care patient: Yes Total Critical Care Time (in minutes): 33 Critical Care Statement: The care of this patient involved high complexity decision making to prevent further life threatening deterioration of the patient 's condition and/or to evalute & treat vital organ system(s) failure or risk of failure.
[2016-10-24] MEDS: PANTOPRAZOLE SODIUM 100 ML IVPB SCH ×2 (10:47→22:15)
[2016-10-24] MEDS: morphine CARPU-JECT 2 MG/1 ML DISP.SYRIN IVPUSH PRN ×3 (10:50→22:13)
[2016-10-24] MEDS ORDERED: morphine CARPU-JECT 2 MG/1 ML DISP.SYRIN IVPUSH ONE (11:15)
--- NOTE | 2016-10-24 11:26 | PN ---
Teaching Attending Note Name of Resident: Howard Shea ATTENDING PHYSICIAN STATEMENT I saw and evaluated the patient. I reviewed the resident's note and discussed the case with the resident. I agree with the resident's findings and plan as documented. SUBJECTIVE: Pt seen and examined in the ICU. Remains intubated, more awake, alert this AM. Following commands. Tolerating CPAP/PS. Off pressors. OBJECTIVE: Last Vital Signs Temp Pulse Resp BP Pulse Ox 98.8 F 82 22 107/54 100 10/24/16 10:00 10/24/16 10:21 10/24/16 10:00 10/24/16 10:00 10/24/16 10:21 Intake & Output 10/21/16 10/22/16 10/23/16 10/24/16 23:59 23:59 23:59 23:59 Intake Total 1042 1180 368 Output Total 1 Balance 1042 1179 368 Weight 112 lb 105 lb 11.2 oz 102 lb 15.294 oz 103 lb 7 oz Gen: intubated, awake Heart: RRR Lung: decreased breath sounds at the bases Abd: soft, nontender Ext: no edema CBC, BMP 10/24/16 05:15 10/24/16 05:15 Active Medications Fentanyl (Sublimaze Injection -) 50 mcg IVPUSH Q4H PRN PRN Reason: PAIN Stop: 10/25/16 06:14 Heparin Sodium (Porcine) (Heparin -) 1,000 unit IVPUSH PRN PRN PRN Reason: Heparin Heparin Sodium (Porcine) (Heparin -) 5,000 unit IVPUSH PRN PRN PRN Reason: Heparin Heparin Sodium (Porcine) 25, (000 unit/ Sodium Chloride) 500 mls @ 14 mls/hr IV TITR MARIE; 700 UNIT/HR PRN Reason: Protocol Last Titration: 10/24/16 11:06 Dose: 500 unit/hr Piperacillin Sod/Tazobactam Sod (Zosyn 2.25gm Ivpb (Pre-Docked)) 50 mls @ 100 mls/hr IVPB Q8H-IV MARIE Last Admin: 10/24/16 09:02 Dose: 100 mls/hr Pantoprazole Sodium (Protonix 40mg Ivpb (Pre-Docked)) 100 mls @ 200 mls/hr IVPB BID MARIE Last Admin: 10/24/16 10:47 Dose: 200 mls/hr Levetiracetam (Keppra Injection -) 500 mg IVPB BID MARIE Last Admin: 10/24/16 09:02 Dose: 500 mg Morphine Sulfate (Morphine Injection -) 2 mg IVPUSH Q4H PRN PRN Reason: PAIN Last Admin: 10/24/16 10:50 Dose: 2 mg ASSESSMENT AND PLAN: s/p PEA Cardiopulmonary Arrest s/p Hypothermia Protocol Pneumonia Shock - Septic vs Cardiogenic vs Obstructive Pulmonary HTN Lactic Acidosis ESRD on HD r/o Anoxic Encephalopathy RLE distal DVT - wean to extubate - continue antibiotics - f/u cultures - off pressors - continue anticoagulation - CTA chest to r/o PE as etiology of arrest - HD per renal - for EEG - on empiric antiepileptics - will need swallow evaluation once extubated - DVT/GI prophylaxis - continue ICU monitoring
--- NOTE | 2016-10-24 12:40 | CONSULT ---
Admitting History and Physical - Primary Care Physician PCP: Boaz Lr - Admission History of Present Illness: Per emr: "Admission History of Present Illness: 80 yo woman NHR, PMH: HCV, GIB,HTN, ESRD on HD TIW (m,w,f) who presented with abdominal discomfort and RUQ tenderness who had sudden cardiac arrest of unclear etiology. Briefly per the she had been in her usual state of poor health since Jun when she was admitted to [facility] and has been either hospitalized or in subacute care since. She has been on HD since 2006, she has never received therapy for HCV. She has had recurrent anemia requiring transfusions and has questionable history of esophageal varices. She was sent to [facility] ED the week prior for lab abnormalities but was not admitted. The day prior to admission she developed asymmetric L>R LE edema. In the ED she received u/s abd w/o evidence of acute cholecystitis. CXR with RML/RLL consolidation and vanco/zosyn given for HCAP. She developed acute SOB and became pulseless. ACLS provided for ~10min. She was transferred to ICU. " History Source: Medical Record Limitations to Obtaining History: Clinical Condition - Past Medical History Cardiovascular: Yes: Aneurysm, HTN Renal/: Yes: Renal Failure Infectious Disease: Yes: Other (HCV) - Past Surgical History Past Surgical History: Yes: AV Fistula/Graft - Smoking History Smoking history: Never smoked - Alcohol/Substance Use Hx Alcohol Use: No - Social History Usual Living Arrangement: Yes: With Spouse History - Admission Reason For Visit: PNEUMONIA - Diagnostics X-ray: Report Reviewed - General Mental Status: Awake and Alert, Able to Follow Commands, Anxious, Confused Attention: Distractible Ability to Follow Directions: Fair Head/Neck Control: Needs Assist Speech Evaluation - Communication Primary Language: MALAY Communication: Yes: Simple Responses Oral Expression Ability: Yes: Moderate Impairment - Speech Production Able to Make Needs Known: Yes: Moderately Impaired Intelligibility: Yes: Moderately Impaired - Speech Characteristics Voice Loudness: Mildly Loud (bursts of speech.) Voice Pitch: Yes: Normal Voice Phonatory-based Quality: Yes: Normal Speech Pattern: Impaired Speech Clarity: < 50% Nasal Resonance: Normal Articulation: Yes: Imprecise Rate of Speech: Too Fast Voice, Other Observations: Yes: Inadequate Breath Support (Only produces a 2-4 of audible syllables before losing breath support) - Language/Auditory Comprehension Observation: Able to respond to yes/no queries: Yes, Benefits from Slow Speech: Yes, Benefits from Repetiton: Yes, Benefits from Increased Volume of Speech: Yes - Language/Verbal Expression Able to Respond to Simple Queries: Yes: Moderately Impaired Able to Communicate Wants and Needs: Yes: Moderately Impaired Functional Communication Status: Yes: Moderately Impaired - Swallow Evaluation/Bedside Assessment Current Nutritional Intake: NPO Oral Secretions: Yes: WFL Facial Symmetry at Rest: Symmetrical Facial Symmetry on Retraction: Symmetrical Facial Movement: Controlled Sensation: Normal Against Resistance Opening: Normal Against Resistance Closing: Normal Pucker Lips: Normal Smile: Normal Lingual Movement: Normal Lingual Speed of Movement: Normal Lingual Movement Strgth Against Opposition: Normal Lingual Movement Characteristics: Normal Velopharyngeal Movement: Normal Laryngeal Elevation: Impaired Laryngeal Movement: Labored,delay initiation Labial Seal: WFL Oral Prep Time: Increased A-P Transit: Impaired Timing of Swallow: Delayed (at times not triggered) Coughing/Throat Clear: No Change in Voice: No Recommendations - Speech Evaluation, Impression/Plan Impression: Bursts of speech. Reduced intelligibility with imprecise articulation and reduced breath support for speech. Confused. Easily agitated. Delayed swallow , at times not triggered, placing pt at risk of aspiration. Swallow is brisk. Good vocal quality. - Dysphagia Impressions/Plan Swallowing Skills: Impaired *Silent aspiration: cannot be R/O at bedside Recommendations: Modified Barium Swallow (CXR with RML/RLL consolidation upon admission. Aspiration?) - Recommendations Diet Consistency: NPO Medication Administration: Crushed with applesauce (cue pt to swallow and palpate for swallow with each bite) Liquids: NPO
--- NOTE | 2016-10-24 13:11 | PN ---
Progress Note, Physician History of Present Illness: Patient pending CTA today to rule out PE. No new events. - Current Medication List Current Medications: Active Medications Fentanyl (Sublimaze Injection -) 50 mcg IVPUSH Q4H PRN PRN Reason: PAIN Stop: 10/25/16 06:14 Heparin Sodium (Porcine) (Heparin -) 1,000 unit IVPUSH PRN PRN PRN Reason: Heparin Heparin Sodium (Porcine) (Heparin -) 5,000 unit IVPUSH PRN PRN PRN Reason: Heparin Heparin Sodium (Porcine) 25, (000 unit/ Sodium Chloride) 500 mls @ 14 mls/hr IV TITR MARIE; 700 UNIT/HR PRN Reason: Protocol Last Titration: 10/24/16 11:06 Dose: 500 unit/hr Piperacillin Sod/Tazobactam Sod (Zosyn 2.25gm Ivpb (Pre-Docked)) 50 mls @ 100 mls/hr IVPB Q8H-IV MARIE Last Admin: 10/24/16 09:02 Dose: 100 mls/hr Pantoprazole Sodium (Protonix 40mg Ivpb (Pre-Docked)) 100 mls @ 200 mls/hr IVPB BID MARIE Last Admin: 10/24/16 10:47 Dose: 200 mls/hr Levetiracetam (Keppra Injection -) 500 mg IVPB BID MARIE Last Admin: 10/24/16 09:02 Dose: 500 mg Morphine Sulfate (Morphine Injection -) 2 mg IVPUSH Q4H PRN PRN Reason: PAIN Last Admin: 10/24/16 10:50 Dose: 2 mg - Objective Vital Signs: Vital Signs Temperature 98.1 F 10/24/16 11:29 Pulse Rate 80 10/24/16 11:29 Respiratory Rate 20 10/24/16 11:29 Blood Pressure 100/53 10/24/16 11:29 O2 Sat by Pulse Oximetry (%) 100 10/24/16 10:21 Eyes: Yes: Conjunctiva Clear, EOM Intact HENT: Yes: Atraumatic, Normocephalic Cardiovascular: Yes: Regular Rate and Rhythm Respiratory: Yes: CTA Bilaterally Gastrointestinal: Yes: Normal Bowel Sounds, Soft. No: Tenderness Edema: No Labs: CBC, BMP 10/24/16 05:15 10/24/16 05:15 INR, PTT INR 1.83 (0.82-1.09) H 10/22/16 04:45 Assessment/Plan 80 yo female with HTN, ESRD -> HD, ovarian CA, who presented with abd pain -> cardiopulmonary arrest -> seizures -> intubated and was requiring norepineprhrine. Etiology not clear. However, patient with right calf DVT -> raising question of PE (though reported rhythm was asystole). PEA may have degenerated into asystole. Patient is extubated and off pressors. Trop I are indeterminate, 0.04 -> 0.10 -> 0.08 -> 0.06 1.30.17 Echo: Mild global LV dysfunction, mild MR, mild to mod TR, PASP 30-40 mmHg, mild AR, mild to mod WV, small pericardial effusion (no tamponade) RECS: Continue heparin gtt CTA chest pending to rule PE Further management as per neuro/IM/ID/pulm Will follow. Call with questions.
--- NOTE | 2016-10-24 14:03 | PN ---
Progress Note, Physician Chief Complaint: AWAKE MORE ALERT NGT TO DRAIN S/P CT SCHEST R/O PE PENDING RESULT - Current Medication List Current Medications: Active Medications Fentanyl (Sublimaze Injection -) 50 mcg IVPUSH Q4H PRN PRN Reason: PAIN Stop: 10/25/16 06:14 Heparin Sodium (Porcine) (Heparin -) 1,000 unit IVPUSH PRN PRN PRN Reason: Heparin Heparin Sodium (Porcine) (Heparin -) 5,000 unit IVPUSH PRN PRN PRN Reason: Heparin Heparin Sodium (Porcine) 25, (000 unit/ Sodium Chloride) 500 mls @ 14 mls/hr IV TITR MARIE; 700 UNIT/HR PRN Reason: Protocol Last Titration: 10/24/16 11:06 Dose: 500 unit/hr Piperacillin Sod/Tazobactam Sod (Zosyn 2.25gm Ivpb (Pre-Docked)) 50 mls @ 100 mls/hr IVPB Q8H-IV MARIE Last Admin: 10/24/16 09:02 Dose: 100 mls/hr Pantoprazole Sodium (Protonix 40mg Ivpb (Pre-Docked)) 100 mls @ 200 mls/hr IVPB BID MARIE Last Admin: 10/24/16 10:47 Dose: 200 mls/hr Levetiracetam (Keppra Injection -) 500 mg IVPB BID MARIE Last Admin: 10/24/16 09:02 Dose: 500 mg Morphine Sulfate (Morphine Injection -) 2 mg IVPUSH Q4H PRN PRN Reason: PAIN Last Admin: 10/24/16 10:50 Dose: 2 mg - Objective Vital Signs: Vital Signs Temperature 98.1 F 10/24/16 11:29 Pulse Rate 80 10/24/16 11:29 Respiratory Rate 20 10/24/16 11:29 Blood Pressure 100/53 10/24/16 11:29 O2 Sat by Pulse Oximetry (%) 100 10/24/16 10:21 Constitutional: Yes: Mild Distress Eyes: Yes: WNL HENT: Yes: WNL Neck: Yes: WNL Cardiovascular: Yes: Pulse Irregular Respiratory: Yes: On Nasal O2, Rhonchi, SOB Gastrointestinal: Yes: Tenderness, Rebound (HARD ABD) Genitourinary: Yes: Lu Present Musculoskeletal: Yes: Muscle Weakness Extremities: Yes: WNL Edema: Yes Edema: LUE: 1+, RUE: 1+, LLE: 1+, RLE: 1+ Peripheral Pulses WNL: Yes Integumentary: Yes: Erythema Wound/Incision: Yes: Dressing Dry and Intact Neurological: Yes: Unsteady Gait, Weakness ...Motor Strength: LLE, RLE Psychiatric: Yes: Agitated, Other Labs: CBC, BMP 10/24/16 05:15 10/24/16 05:15 INR, PTT INR 1.83 (0.82-1.09) H 10/22/16 04:45 Problem List - Problems (1) Cardiopulmonary arrest Code(s): I46.9 - CARDIAC ARREST, CAUSE UNSPECIFIED (2) DVT (deep venous thrombosis) Code(s): I82.409 - ACUTE EMBOLISM AND THOMBOS UNSP DEEP VN UNSP LOWER EXTREMITY (3) ESRD (end stage renal disease) on dialysis Code(s): N18.6 - END STAGE RENAL DISEASE Z99.2 - DEPENDENCE ON RENAL DIALYSIS (4) HCV (hepatitis C virus) Code(s): B19.20 - UNSPECIFIED VIRAL HEPATITIS C WITHOUT HEPATIC COMA (5) Metabolic encephalopathy Code(s): G93.41 - METABOLIC ENCEPHALOPATHY (6) Pneumonia Code(s): J18.9 - PNEUMONIA, UNSPECIFIED ORGANISM (7) Respiratory failure Code(s): J96.90 - RESPIRATORY FAILURE, UNSP, UNSP W HYPOXIA OR HYPERCAPNIA Assessment/Plan PE PROTOCOL CT COMPLETE AWAITING RESULTS 02 SUPPORT HEPARIN IV FOR DVT CONVERT TO ELIQUIS WHEN READY FOR DISCHARGE IV ABX RESP SUPPORT ESRD ON HD
--- NOTE | 2016-10-24 15:31 | PN ---
Progress Note, Physician History of Present Illness: Pt seen and examined at bedside. She is now extubated. She is awake but is not fully coherent. - Current Medication List Current Medications: Active Medications Fentanyl (Sublimaze Injection -) 50 mcg IVPUSH Q4H PRN PRN Reason: PAIN Stop: 10/25/16 06:14 Heparin Sodium (Porcine) (Heparin -) 1,000 unit IVPUSH PRN PRN PRN Reason: Heparin Heparin Sodium (Porcine) (Heparin -) 5,000 unit IVPUSH PRN PRN PRN Reason: Heparin Heparin Sodium (Porcine) 25, (000 unit/ Sodium Chloride) 500 mls @ 14 mls/hr IV TITR MARIE; 700 UNIT/HR PRN Reason: Protocol Last Titration: 10/24/16 11:06 Dose: 500 unit/hr Piperacillin Sod/Tazobactam Sod (Zosyn 2.25gm Ivpb (Pre-Docked)) 50 mls @ 100 mls/hr IVPB Q8H-IV MARIE Last Admin: 10/24/16 09:02 Dose: 100 mls/hr Pantoprazole Sodium (Protonix 40mg Ivpb (Pre-Docked)) 100 mls @ 200 mls/hr IVPB BID MARIE Last Admin: 10/24/16 10:47 Dose: 200 mls/hr Levetiracetam (Keppra Injection -) 500 mg IVPB BID MARIE Last Admin: 10/24/16 09:02 Dose: 500 mg Morphine Sulfate (Morphine Injection -) 2 mg IVPUSH Q4H PRN PRN Reason: PAIN Last Admin: 10/24/16 14:14 Dose: 2 mg - Objective Vital Signs: Vital Signs Temperature 98.1 F 10/24/16 11:29 Pulse Rate 75 10/24/16 14:18 Respiratory Rate 18 10/24/16 14:18 Blood Pressure 98/55 10/24/16 14:18 O2 Sat by Pulse Oximetry (%) 100 10/24/16 10:21 Constitutional: Yes: Calm Eyes: Yes: Conjunctiva Clear HENT: Yes: Atraumatic Cardiovascular: Yes: S1, S2 Respiratory: Yes: On Nasal O2 Gastrointestinal: Yes: Soft Musculoskeletal: Yes: Muscle Weakness Edema: Yes Neurological: Yes: Confusion Labs: CBC, BMP 10/24/16 05:15 10/24/16 05:15 INR, PTT INR 1.83 (0.82-1.09) H 10/22/16 04:45 Assessment/Plan Current Medications Generic Name Dose Route Start Last Admin Trade Name Katherine PRN Reason Stop Dose Admin Fentanyl 50 mcg 10/24/16 06:05 Sublimaze Injection - IVPUSH 10/25/16 06:14 Q4H PRN PAIN Heparin Sodium (Porcine) 1,000 unit 10/22/16 04:52 Heparin - IVPUSH PRN PRN Heparin Heparin Sodium (Porcine) 5,000 unit 10/22/16 04:52 Heparin - IVPUSH PRN PRN Heparin Heparin Sodium (Porcine) 25, 500 mls @ 14 mls/hr 10/22/16 05:00 10/24/16 11:06 000 unit/ Sodium Chloride IV 500 unit/hr TITR MARIE Titration Protocol 700 UNIT/HR Piperacillin Sod/Tazobactam Sod 50 mls @ 100 mls/hr 10/22/16 18:00 10/24/16 09: 02 Zosyn 2.25gm Ivpb (Pre-Docked) IVPB 100 mls/hr Q8H-IV MARIE Administration Pantoprazole Sodium 100 mls @ 200 mls/hr 10/24/16 10:45 10/24/16 10:47 Protonix 40mg Ivpb (Pre-Docked) IVPB 200 mls/hr BID MARIE Administration Levetiracetam 500 mg 10/22/16 22:00 10/24/16 09:02 Keppra Injection - IVPB 500 mg BID MARIE Administration Morphine Sulfate 2 mg 10/24/16 10:42 10/24/16 14:14 Morphine Injection - IVPUSH 2 mg Q4H PRN Administration PAIN Impression 1. ESRD 2. s/p cardiopulmonary arrest 3. acute respiratory failure 4. Pneumonia 5. DVT of right leg 6. S/P Seizure following the arrest 7. Right renal complex cyst > 5cms in diameter 8. Anemia 9. Thrombocytopenia 10. H/O HCV 11. H/O GIB Plan - discussed with ICU team - pt will go for a ct angio and I will arrange for HD - monitor in ICU - monitor pulse ox - will dialyze today - repeat cxr and labs in am Dr Espino
[2016-10-24] MEDS ORDERED: HEPARIN INFUSION - 500 ML IVPB ONE (17:23)
[2016-10-24] MEDS ORDERED: ALBUTEROL SO4 0.083% IH SOL 2.5 MG/3 ML VIAL.NEB. NEB PRN (23:06)
[2016-10-24] MEDS: ALBUTEROL SO4 2.5/IPRATROPIUM 0.5 INH SOL 3 ML VIAL.NEB. NEB SCH (23:45)
[2016-10-25] MEDS: PIPERACILLIN/TAZOB 2.25 GM 50 ML IVPB SCH ×3 (01:12→21:00)
[2016-10-25] MEDS: morphine CARPU-JECT 2 MG/1 ML DISP.SYRIN IVPUSH PRN (02:04)
[2016-10-25 05:55] LABS: MCH 33.3 pg (25.7-33.7); MCHC 33.2 g/dl (32.0-36.0); MEAN CELL VOLUME 100.2 fl (80-96); MEAN PLT VOLUME 10.7 fl (7.5-11.1); PLATELET COUNT 49 K/MM3 (134-434); RDW 20.3 % (11.6-15.6); WHITE BLOOD COUNT 8.8 K/mm3 (4.0-10.0)
[2016-10-25 06:17] LABS: ALBUMIN 1.1 g/dl (3.4-5.0); BILIRUBIN,TOTAL 0.6 mg/dL (0.2-1.0); CALCIUM 7.6 mg/dL (8.5-10.1); CREATININE 2.2 mg/dL (0.55-1.02); MAGNESIUM 1.6 mg/dL (1.8-2.4); PHOSPHOROUS 2.6 mg/dL (2.5-4.9)
[2016-10-25] MEDS: HEPARIN - 25,000 UNIT in SODIUM CHLORIDE 495 ML IV SCH (06:22)
[2016-10-25 07:23] LABS: ARTERIAL BLD GAS O2 SATURATION 96.1 % (90-98.9); ARTERIAL BLOOD GAS BASE EXCESS 5.8 meq/l (-2-2); ARTERIAL BLOOD GAS HCO3 30.7 meq/L (22-26); ARTERIAL BLOOD GAS pH 7.41 (7.35-7.45)
[2016-10-25 07:24] LABS: ALLENS TEST POSITIVE; ART PUNCT SITE RIGHT RADIAL; LPM/O2% 3L; PT. ON O2? YES; TYPE OF O2 NASAL
--- NOTE | 2016-10-25 08:15 | PN ---
Progress Note, Physician Chief Complaint: ID Zorosarion day3 of therapy Alert respiratory distress/ Dyspneic - Current Medication List Current Medications: Active Medications Albuterol Sulfate (Ventolin 0.083% Nebulizer Soln -) 1 amp NEB Q4H PRN PRN Reason: SHORT OF BREATH/WHEEZING Albuterol/Ipratropium (Duoneb -) 1 amp NEB BID MARIE Last Admin: 10/24/16 23:45 Dose: 1 amp Heparin Sodium (Porcine) (Heparin -) 1,000 unit IVPUSH PRN PRN PRN Reason: Heparin Heparin Sodium (Porcine) (Heparin -) 5,000 unit IVPUSH PRN PRN PRN Reason: Heparin Heparin Sodium (Porcine) 25, (000 unit/ Sodium Chloride) 500 mls @ 14 mls/hr IV TITR MARIE; 700 UNIT/HR PRN Reason: Protocol Last Titration: 10/25/16 06:23 Dose: 350 unit/hr Piperacillin Sod/Tazobactam Sod (Zosyn 2.25gm Ivpb (Pre-Docked)) 50 mls @ 100 mls/hr IVPB Q8H-IV MARIE Last Admin: 10/25/16 01:12 Dose: 100 mls/hr Pantoprazole Sodium (Protonix 40mg Ivpb (Pre-Docked)) 100 mls @ 200 mls/hr IVPB BID MARIE Last Admin: 10/24/16 22:15 Dose: 200 mls/hr Levetiracetam (Keppra Injection -) 500 mg IVPB BID MARIE Last Admin: 10/24/16 22:13 Dose: 500 mg Morphine Sulfate (Morphine Injection -) 2 mg IVPUSH Q4H PRN PRN Reason: PAIN Last Admin: 10/25/16 02:04 Dose: 2 mg - Objective Vital Signs: Vital Signs Temperature 98.9 F 10/25/16 06:00 Pulse Rate 76 10/25/16 07:58 Respiratory Rate 12 10/25/16 07:58 Blood Pressure 98/52 10/25/16 07:58 O2 Sat by Pulse Oximetry (%) 95 10/24/16 19:59 Constitutional: Yes: Mild Distress Neck: Yes: WNL, Supple Cardiovascular: Yes: Regular Rate and Rhythm, S1, S2 Respiratory: Yes: Rhonchi (Congested), Other Gastrointestinal: Yes: WNL, Normal Bowel Sounds, Soft. No: Tenderness, Tenderness, Epigastrium Edema: No Labs: CBC, BMP 10/25/16 05:00 10/25/16 05:00 INR, PTT INR 1.83 (0.82-1.09) H 10/22/16 04:45 Problem List - Problems (1) Cardiopulmonary arrest Code(s): I46.9 - CARDIAC ARREST, CAUSE UNSPECIFIED (2) ESRD (end stage renal disease) on dialysis Code(s): N18.6 - END STAGE RENAL DISEASE Z99.2 - DEPENDENCE ON RENAL DIALYSIS (3) Pneumonia Code(s): J18.9 - PNEUMONIA, UNSPECIFIED ORGANISM (4) Respiratory failure Code(s): J96.90 - RESPIRATORY FAILURE, UNSP, UNSP W HYPOXIA OR HYPERCAPNIA Assessment/Plan Microbiology 10/23/16 08:00 Sputum - Endotrachea Suction/Ventilator Gram Stain - Final 10/23/16 07:30 Sputum - Endotrachea Suction/Ventilator Gram Stain - Final 10/23/16 08:00 Sputum - Endotrachea Suction/Ventilator Sputum Culture - Preliminary Yeast Like Organism 10/23/16 07:30 Sputum - Endotrachea Suction/Ventilator Sputum Culture - Preliminary Yeast Like Organism Laboratory Tests 10/25/16 05:00 WBC 8.8 Hgb 8.0 L Plt Count 49 L D Assessment Respiratory failure Pneumonia ESRD Cardiac arrest Plan Continue current antibiotic Helen ZHAO
[2016-10-25] MEDS ORDERED: MAGNESIUM SULF 50% (8.12 MEQ/2 ML-1 GM VIAL) IVPB ONE (08:45)
[2016-10-25] MEDS ORDERED: CALCIUM GLUCONATE 10% - 1,000 MG/10 ML VIAL IVPB ONE (08:45)
[2016-10-25] MEDS: ALBUTEROL SO4 2.5/IPRATROPIUM 0.5 INH SOL 3 ML VIAL.NEB. NEB SCH ×3 (09:49→22:20)
[2016-10-25] MEDS: levETIRAcetam 500 MG/5 ML INJECTION VIAL IVPB SCH ×2 (10:01→21:07)
[2016-10-25] MEDS: PANTOPRAZOLE SODIUM 100 ML IVPB SCH (10:18)
--- NOTE | 2016-10-25 10:44 | PN ---
Progress Note, Physician History of Present Illness: Pt seen and examined at bedside. She is more awake and interactive today. - Current Medication List Current Medications: Active Medications Albuterol Sulfate (Ventolin 0.083% Nebulizer Soln -) 1 amp NEB Q4H PRN PRN Reason: SHORT OF BREATH/WHEEZING Albuterol/Ipratropium (Duoneb -) 1 amp NEB BID MARIE Last Admin: 10/25/16 09:49 Dose: 1 amp Heparin Sodium (Porcine) (Heparin -) 1,000 unit IVPUSH PRN PRN PRN Reason: Heparin Heparin Sodium (Porcine) (Heparin -) 5,000 unit IVPUSH PRN PRN PRN Reason: Heparin Heparin Sodium (Porcine) 25, (000 unit/ Sodium Chloride) 500 mls @ 14 mls/hr IV TITR MARIE; 700 UNIT/HR PRN Reason: Protocol Last Titration: 10/25/16 06:23 Dose: 350 unit/hr Piperacillin Sod/Tazobactam Sod (Zosyn 2.25gm Ivpb (Pre-Docked)) 50 mls @ 100 mls/hr IVPB Q8H-IV MARIE Last Admin: 10/25/16 09:24 Dose: 100 mls/hr Pantoprazole Sodium (Protonix 40mg Ivpb (Pre-Docked)) 100 mls @ 200 mls/hr IVPB BID MARIE Last Admin: 10/25/16 10:18 Dose: 200 mls/hr Levetiracetam (Keppra Injection -) 500 mg IVPB BID MARIE Last Admin: 10/25/16 10:01 Dose: 500 mg Morphine Sulfate (Morphine Injection -) 2 mg IVPUSH Q4H PRN PRN Reason: PAIN Last Admin: 10/25/16 02:04 Dose: 2 mg - Objective Vital Signs: Vital Signs Temperature 97.3 F L 10/25/16 10:00 Pulse Rate 73 10/25/16 10:00 Respiratory Rate 12 10/25/16 10:00 Blood Pressure 95/47 10/25/16 10:00 O2 Sat by Pulse Oximetry (%) 100 10/25/16 08:18 Constitutional: Yes: Calm Eyes: Yes: Conjunctiva Clear HENT: Yes: Atraumatic Neck: Yes: Supple Cardiovascular: Yes: S1, S2 Respiratory: Yes: On Nasal O2, Rhonchi Gastrointestinal: Yes: Soft Genitourinary: Yes: Incontinence Musculoskeletal: Yes: Muscle Weakness Edema: Yes Edema: LLE: 1+, RLE: 1+ Neurological: Yes: Confusion Labs: CBC, BMP 10/25/16 05:00 10/25/16 05:00 INR, PTT INR 1.83 (0.82-1.09) H 10/22/16 04:45 - ....Imaging Chest X-ray: Report Reviewed Problem List - Problems (1) Cardiopulmonary arrest Code(s): I46.9 - CARDIAC ARREST, CAUSE UNSPECIFIED (2) DVT (deep venous thrombosis) Code(s): I82.409 - ACUTE EMBOLISM AND THOMBOS UNSP DEEP VN UNSP LOWER EXTREMITY (3) ESRD (end stage renal disease) on dialysis Code(s): N18.6 - END STAGE RENAL DISEASE Z99.2 - DEPENDENCE ON RENAL DIALYSIS (4) HCV (hepatitis C virus) Code(s): B19.20 - UNSPECIFIED VIRAL HEPATITIS C WITHOUT HEPATIC COMA (5) Respiratory failure Code(s): J96.90 - RESPIRATORY FAILURE, UNSP, UNSP W HYPOXIA OR HYPERCAPNIA Assessment/Plan Current Medications Generic Name Dose Route Start Last Admin Trade Name Freq PRN Reason Stop Dose Admin Albuterol Sulfate 1 amp 10/24/16 23:06 Ventolin 0.083% Nebulizer Soln - NEB Q4H PRN SHORT OF BREATH/WHEEZING Albuterol/Ipratropium 1 amp 10/24/16 23:15 10/25/16 09:49 Duoneb - NEB 1 amp BID MARIE Administration Heparin Sodium (Porcine) 1,000 unit 10/22/16 04:52 Heparin - IVPUSH PRN PRN Heparin Heparin Sodium (Porcine) 5,000 unit 10/22/16 04:52 Heparin - IVPUSH PRN PRN Heparin Heparin Sodium (Porcine) 25, 500 mls @ 14 mls/hr 10/22/16 05:00 10/25/16 06:23 000 unit/ Sodium Chloride IV 350 unit/hr TITR MARIE Titration Protocol 700 UNIT/HR Piperacillin Sod/Tazobactam Sod 50 mls @ 100 mls/hr 10/22/16 18:00 10/25/16 09: 24 Zosyn 2.25gm Ivpb (Pre-Docked) IVPB 100 mls/hr Q8H-IV MARIE Administration Pantoprazole Sodium 100 mls @ 200 mls/hr 10/24/16 10:45 10/25/16 10:18 Protonix 40mg Ivpb (Pre-Docked) IVPB 200 mls/hr BID MARIE Administration Levetiracetam 500 mg 10/22/16 22:00 10/25/16 10:01 Keppra Injection - IVPB 500 mg BID MARIE Administration Morphine Sulfate 2 mg 10/24/16 10:42 10/25/16 02:04 Morphine Injection - IVPUSH 2 mg Q4H PRN Administration PAIN Impression 1. ESRD 2. s/p cardiopulmonary arrest 3. acute respiratory failure 4. Pneumonia 5. DVT of right leg 6. S/P Seizure following the arrest 7. Right renal complex cyst > 5cms in diameter 8. Anemia 9. Thrombocytopenia 10. H/O HCV 11. H/O GIB Plan - will arrange for HD today - will attempt to UF more volume - discussed with ICU team today - monitor blood pressure - monitor in ICU - monitor pulse ox - repeat cxr and labs in am Dr Espino
[2016-10-25] MEDS ORDERED: ALBUMIN HUMAN 25% 100 ML VIAL IVPB SCH (10:45)
--- NOTE | 2016-10-25 10:51 | PN ---
Physical Exam: SUBJECTIVE: Patient seen and examined at bedside. Much more alert today. Asking "what happened". Complaining of CP. Appetite increased asking for food. OBJECTIVE: Vital Signs Period Temp Pulse Resp BP Sys/Hodgson Pulse Ox Last 24 Hr 97.3 F-98.9 F 71-95 11-20 91-118/45-81 95-100 GENERAL: Awake and following commands. HEAD: Normal with no signs of trauma. EYES: PERRL, sclera anicteric, conjunctiva clear. No ptosis. ENT: Dry mucous membranes. NECK: supple , no jvd, right IJ central line in place. LUNGS: Diminished breath sounds R base, scattered rhonchi HEART: Regular rate and rhythm, S1, S2 without murmur, rub or gallop. ABDOMEN: Soft, nontender, nondistended, normoactive bowel sounds, no guarding, no rebound, no hepatosplenomegaly, no masses. EXTREMITIES: 2+ pulses, warm, well-perfused, no edema. NEUROLOGICAL:awake and following verbal commands. PSYCH: anxious SKIN: Warm, dry, normal turgor, no rashes or lesions noted Laboratory Results - last 24 hr 10/24/16 10/24/16 10/24/16 15:07 15:07 22:00 WBC RBC Hgb Hct MCV MCHC RDW Plt Count MPV PTT (Actin FS) 91.7 H D 55.4 H D Puncture Site ABG pH ABG pCO2 at Pt Temp ABG pO2 at Pt Temp ABG HCO3 ABG O2 Sat (Measured) ABG O2 Content ABG Base Excess Ventura Test O2 Delivery Device Oxygen Flow Rate PEEP Sodium Potassium Chloride Carbon Dioxide Anion Gap BUN Creatinine Creat Clearance w eGFR Random Glucose Calcium Phosphorus Magnesium Total Bilirubin AST ALT Alkaline Phosphatase Total Protein Albumin Stool Occult Blood Blood Type B POSITIVE Antibody Screen Positive H Antibody Identification Not Reportable Antigen Identification Y 10/25/16 10/25/16 10/25/16 01:37 05:00 05:00 WBC 8.8 RBC 2.39 L Hgb 8.0 L Hct 24.0 L MCV 100.2 H MCHC 33.2 RDW 20.3 H Plt Count 49 L D MPV 10.7 PTT (Actin FS) 76.1 H D Puncture Site ABG pH ABG pCO2 at Pt Temp ABG pO2 at Pt Temp ABG HCO3 ABG O2 Sat (Measured) ABG O2 Content ABG Base Excess Ventura Test O2 Delivery Device Oxygen Flow Rate PEEP Sodium Potassium Chloride Carbon Dioxide Anion Gap BUN Creatinine Creat Clearance w eGFR Random Glucose Calcium Phosphorus Magnesium Total Bilirubin AST ALT Alkaline Phosphatase Total Protein Albumin Stool Occult Blood Positive Blood Type Antibody Screen Antibody Identification Antigen Identification 10/25/16 10/25/16 05:00 07:10 WBC RBC Hgb Hct MCV MCHC RDW Plt Count MPV PTT (Actin FS) Puncture Site Right radial ABG pH 7.41 ABG pCO2 at Pt Temp 49.8 H D ABG pO2 at Pt Temp 102.0 H D ABG HCO3 30.7 H ABG O2 Sat (Measured) 96.1 ABG O2 Content 11.0 L ABG Base Excess 5.8 H Ventura Test Positive O2 Delivery Device Nasal Oxygen Flow Rate 3l PEEP 0.0 Sodium 138 Potassium 3.9 Chloride 99 Carbon Dioxide 31 Anion Gap 8 BUN 17 D Creatinine 2.2 H D Creat Clearance w eGFR 21.53 Random Glucose 57 L Calcium 7.6 L Phosphorus 2.6 D Magnesium 1.6 L Total Bilirubin 0.6 AST 24 ALT 11 L Alkaline Phosphatase 71 Total Protein 6.0 L Albumin 1.1 L Stool Occult Blood Blood Type Antibody Screen Antibody Identification Antigen Identification Active Medications Generic Name Dose Route Start Last Admin Trade Name Freq PRN Reason Stop Dose Admin Albumin Human 12.5 gm 10/25/16 10:45 Albumin Human 25% - IVPB Q30M MARIE Albuterol Sulfate 1 amp 10/24/16 23:06 Ventolin 0.083% Nebulizer Soln - NEB Q4H PRN SHORT OF BREATH/WHEEZING Albuterol/Ipratropium 1 amp 10/24/16 23:15 10/25/16 09:49 Duoneb - NEB 1 amp BID MARIE Administration Heparin Sodium (Porcine) 1,000 unit 10/22/16 04:52 Heparin - IVPUSH PRN PRN Heparin Heparin Sodium (Porcine) 5,000 unit 10/22/16 04:52 Heparin - IVPUSH PRN PRN Heparin Heparin Sodium (Porcine) 25, 500 mls @ 14 mls/hr 10/22/16 05:00 10/25/16 06:23 000 unit/ Sodium Chloride IV 350 unit/hr TITR MARIE Titration Protocol 700 UNIT/HR Piperacillin Sod/Tazobactam Sod 50 mls @ 100 mls/hr 10/22/16 18:00 10/25/16 09: 24 Zosyn 2.25gm Ivpb (Pre-Docked) IVPB 100 mls/hr Q8H-IV MARIE Administration Pantoprazole Sodium 100 mls @ 200 mls/hr 10/24/16 10:45 10/25/16 10:18 Protonix 40mg Ivpb (Pre-Docked) IVPB 200 mls/hr BID MARIE Administration Levetiracetam 500 mg 10/22/16 22:00 10/25/16 10:01 Keppra Injection - IVPB 500 mg BID MARIE Administration Morphine Sulfate 2 mg 10/24/16 10:42 10/25/16 02:04 Morphine Injection - IVPUSH 2 mg Q4H PRN Administration PAIN ASSESSMENT/PLAN: 80 yo F F with PMHx of HCV, HTN , ESRD (HD MWF) admitted to ICU s/p Cariopulmonary arrest. Hospital DAY #4 Neuro: * Neurologic improvement today. * Continue Keppra 200mg PO BID * Pain control - morphine 2mg IV Q4PRN * Followed by Dr. Bianca Smith: * supplemental O2 via NC * maintain O2 sat >90% * Duonebs TID * Aspiration precautions. * Continue Zosyn 2.25gm (day 4) CV: * No clear etiology of arrest will get CTA today(-) for PE * US shows RLE DVT - will start Eliquis 2.5mg ABID * Removal of Central Line today * Echo shows normal LV size. Mildly reduced LV func with mild hypokinesis. Mild mitral valve thickening. Mild MR, Mild-Mod TR. Mod , mild AR, mild-mod MO, small pericardial effusion (<1cm) Renal: * HD yesterday took of 1 kg. will repeat dialysis today. * repeat CMP in AM * avoid nephrotoxins. Prophylaxis: * DVT- Heparin drip * GI- Protonix 40mg BID. F/E/N * NO IVF at this time * HD today - repeat labs in AM * Will start thickened liquids. DISPO: Will continue to Monitor in ICU. Visit type - Emergency Visit Emergency Visit: Yes ED Registration Date: 10/22/16 Care time: The patient presented to the Emergency Department on the above date and was hospitalized for further evaluation of their emergent condition. - New Patient This patient is new to me today: No - Critical Care Critical Care patient: Yes Total Critical Care Time (in minutes): 31 Critical Care Statement: The care of this patient involved high complexity decision making to prevent further life threatening deterioration of the patient 's condition and/or to evalute & treat vital organ system(s) failure or risk of failure.
--- NOTE | 2016-10-25 10:59 | PN ---
Teaching Attending Note Name of Resident: Howard Shea ATTENDING PHYSICIAN STATEMENT I saw and evaluated the patient. I reviewed the resident's note and discussed the case with the resident. I agree with the resident's findings and plan as documented. SUBJECTIVE: Pt seen and examined in the ICU. Mental status continues to improve. Some shortness of breath and wheezing. +nonproductive cough. OBJECTIVE: Last Vital Signs Temp Pulse Resp BP Pulse Ox 97.3 F L 73 12 95/47 100 10/25/16 10:00 10/25/16 10:10/25/16 10:10/25/16 10:10/25/16 08:18 Intake & Output 10/22/16 10/23/16 10/24/16 10/25/16 23:59 23:59 23:59 23:59 Intake Total 1042 1180 720 164 Output Total 1 Balance 1042 1179 720 164 Weight 105 lb 11.2 oz 102 lb 15.294 oz 103 lb 7 oz 105 lb 9 oz Gen: alert, awake, mildly tachypneic Heart: RRR Lung: bilateral rhonchi, wheezes Abd: soft, nontender Ext: no edema CBC, BMP 10/25/16 05:00 10/25/16 05:00 CXR: increased pulmonary vascular congestion, effusions Active Medications Albumin Human (Albumin Human 25% -) 12.5 gm IVPB Q30M MARIE Albuterol Sulfate (Ventolin 0.083% Nebulizer Soln -) 1 amp NEB Q4H PRN PRN Reason: SHORT OF BREATH/WHEEZING Albuterol/Ipratropium (Duoneb -) 1 amp NEB TID MARIE Apixaban (Eliquis -) 2.5 mg PO BID MARIE Heparin Sodium (Porcine) 25, (000 unit/ Sodium Chloride) 500 mls @ 14 mls/hr IV TITR MARIE; 700 UNIT/HR PRN Reason: Protocol Last Titration: 10/25/16 06:23 Dose: 350 unit/hr Piperacillin Sod/Tazobactam Sod (Zosyn 2.25gm Ivpb (Pre-Docked)) 50 mls @ 100 mls/hr IVPB Q8H-IV MARIE Last Admin: 10/25/16 09:24 Dose: 100 mls/hr Pantoprazole Sodium (Protonix 40mg Ivpb (Pre-Docked)) 100 mls @ 200 mls/hr IVPB BID [facility] Last Admin: 10/25/16 10:18 Dose: 200 mls/hr Levetiracetam (Keppra Injection -) 500 mg IVPB BID [facility] Last Admin: 10/25/16 10:01 Dose: 500 mg Morphine Sulfate (Morphine Injection -) 2 mg IVPUSH Q4H PRN PRN Reason: PAIN Last Admin: 10/25/16 02:04 Dose: 2 mg ASSESSMENT AND PLAN: s/p PEA Cardiopulmonary Arrest s/p Hypothermia Protocol Pneumonia Shock - Septic vs Cardiogenic vs Obstructive Pulmonary HTN Lactic Acidosis ESRD on HD r/o Anoxic Encephalopathy RLE distal DVT - HD per renal with ultrafiltration - continue antibiotics - continue anticoagulation, can start PO - d/c central line - empiric antiepileptics per neuro - PO as tolerated - rehab/PT eval - DVT/GI prophylaxis - continue ICU monitoring
[2016-10-25] MEDS ORDERED: APIXABAN 2.5 MG TABLET PO SCH ×2 (11:15→22:00)
--- NOTE | 2016-10-25 11:20 | PN ---
Progress Note, HADOOP ARCHITECT - Note Progress Note: Pt is more interactive, confused, a little more verbal. Slight gains in breath support for speech purposes. Swallow still quite delayed. Audible wetness after 3 tsp of applesauce. PT said "I'm wheezing." Unable to cough upon command to clear. Suggest MBS to r/o stasis/aspiration to initiate PO trials safely.
[2016-10-25] MEDS ORDERED: ALBUTEROL SO4 0.083% IH SOL 2.5 MG/3 ML VIAL.NEB. NEB PRN (13:58)
[2016-10-25] MEDS ORDERED: morphine CARPU-JECT 2 MG/1 ML DISP.SYRIN IVPUSH PRN (13:58)
[2016-10-25] MEDS ORDERED: ALBUTEROL SO4 2.5/IPRATROPIUM 0.5 INH SOL 3 ML VIAL.NEB. NEB SCH (14:00)
--- NOTE | 2016-10-25 14:19 | PN ---
Progress Note, Physician History of Present Illness: No new events. No new complaints. - Current Medication List Current Medications: Active Medications Albumin Human (Albumin Human 25% -) 12.5 gm IVPB Q30M MARIE Albuterol Sulfate (Ventolin 0.083% Nebulizer Soln -) 1 amp NEB Q4H PRN PRN Reason: SHORT OF BREATH/WHEEZING Albuterol/Ipratropium (Duoneb -) 1 amp NEB TIDR MARIE Apixaban (Eliquis -) 2.5 mg PO BID MARIE Pantoprazole Sodium (Protonix 40mg Ivpb (Pre-Docked)) 100 mls @ 200 mls/hr IVPB BID MARIE Piperacillin Sod/Tazobactam Sod (Zosyn 2.25gm Ivpb (Pre-Docked)) 50 mls @ 100 mls/hr IVPB Q8H-IV MARIE Levetiracetam (Keppra Injection -) 500 mg IVPB BID MARIE Morphine Sulfate (Morphine Injection -) 2 mg IVPUSH Q4H PRN PRN Reason: PAIN - Objective Vital Signs: Vital Signs Temperature 97.3 F L 10/25/16 10:00 Pulse Rate 74 10/25/16 14:00 Respiratory Rate 11 L 10/25/16 14:00 Blood Pressure 103/55 10/25/16 14:00 O2 Sat by Pulse Oximetry (%) 100 10/25/16 08:18 Constitutional: Yes: No Distress Eyes: Yes: Conjunctiva Clear, EOM Intact HENT: Yes: Atraumatic, Normocephalic Cardiovascular: Yes: Regular Rate and Rhythm. No: Murmur Respiratory: Yes: CTA Bilaterally Gastrointestinal: Yes: Normal Bowel Sounds, Soft Edema: No Labs: CBC, BMP 10/25/16 05:00 10/25/16 05:00 INR, PTT INR 1.83 (0.82-1.09) H 10/22/16 04:45 Assessment/Plan 80 yo female with HTN, ESRD -> HD, ovarian CA, who presented with abd pain -> cardiopulmonary arrest -> seizures -> intubated and was requiring norepinephrine. Patient was extubated and continues to remain off pressors. Etiology of cardiopulmonary arrest not clear. However, patient with right calf DVT -> raising question of PE (though reported rhythm was asystole). PEA may have degenerated into asystole. Trop I are indeterminate, 0.04 -> 0.10 -> 0.08 -> 0.06 10/23/16 Echo: Mild global LV dysfunction, mild MR, mild to mod TR, PASP 30-40 mmHg, mild AR, mild to mod WA, small pericardial effusion (no tamponade) However, 10/24 CTA chest did not demonstrate aortic dissection or central pulmonary embolism. Dilate aorta and pulmonary arteries. Small bilateral pleural effusions. Repeat ECG today demonstrated Q waves in aVL and loss of R wave in precordium, which are new compared to 10/22/16 ECG. Repeat ECG confirmed these findings. RECS: Will order persantine nuclear stress test of evaluation of ischemic heart disease given absence of findings on other studies to explain possible cause of her cardiopulmonary arrest. Currently on Eliquis 2.5 mg po bid Further management as per neuro/IM/ID/pulm Will follow. Call with questions.
[2016-10-25] MEDS ORDERED: ACETAMINOPHEN 1000 MG/100 ML VIAL (NON FORMULARY) IVPB PRN ×2 (15:28→15:57)
[2016-10-25] MEDS ORDERED: NITROGLYCERIN 25MG/D5W 250ML 250 ML IVPB ONE (15:37)
[2016-10-25] MEDS: ALBUMIN HUMAN 25% 100 ML VIAL IVPB SCH ×4 (15:45→17:15)
--- NOTE | 2016-10-25 18:01 | PN ---
Progress Note, Physician Chief Complaint: lethargy , altered mental status, extubated, on dialysis. - Current Medication List Current Medications: Active Medications Acetaminophen (Ofirmev Injection -) 700 mg IVPB Q6H PRN PRN Reason: FEVER OR PAIN Stop: 10/26/16 09:58 Albuterol Sulfate (Ventolin 0.083% Nebulizer Soln -) 1 amp NEB Q4H PRN PRN Reason: SHORT OF BREATH/WHEEZING Albuterol/Ipratropium (Duoneb -) 1 amp NEB TIDR MARIE Apixaban (Eliquis -) 2.5 mg PO BID MARIE Pantoprazole Sodium (Protonix 40mg Ivpb (Pre-Docked)) 100 mls @ 200 mls/hr IVPB BID MARIE Piperacillin Sod/Tazobactam Sod (Zosyn 2.25gm Ivpb (Pre-Docked)) 50 mls @ 100 mls/hr IVPB Q8H-IV MARIE Levetiracetam (Keppra Injection -) 500 mg IVPB BID MARIE Morphine Sulfate (Morphine Injection -) 2 mg IVPUSH Q4H PRN PRN Reason: PAIN - Objective Vital Signs: Vital Signs Temperature 97.3 F L 10/25/16 10:00 Pulse Rate 74 10/25/16 17:15 Respiratory Rate 18 10/25/16 17:15 Blood Pressure 97/51 10/25/16 17:15 O2 Sat by Pulse Oximetry (%) 100 10/25/16 08:18 Constitutional: Yes: No Distress, Calm, Mild Distress Eyes: Yes: Conjunctiva Clear, EOM Intact, PERRL HENT: Yes: Atraumatic, Normocephalic Neck: Yes: Supple, Trachea Midline Cardiovascular: Yes: Regular Rate and Rhythm, S1, S2 Respiratory: Yes: Regular, CTA Bilaterally Gastrointestinal: Yes: Normal Bowel Sounds, Soft Genitourinary: Yes: WNL Breast(s): Yes: WNL Musculoskeletal: Yes: WNL Extremities: Yes: WNL Edema: LUE: 1+, RUE: 1+, LLE: 1+, RLE: 1+ Peripheral Pulses: Left Radial: 1+, Right Radial: 1+ ...Motor Strength: WNL (4/5 generalized weakness.) Psychiatric: Yes: Alert Labs: CBC, BMP 10/25/16 05:00 10/25/16 05:00 INR, PTT INR 1.83 (0.82-1.09) H 10/22/16 04:45 Problem List - Problems (1) Metabolic encephalopathy Code(s): G93.41 - METABOLIC ENCEPHALOPATHY (2) Anoxic brain damage Code(s): G93.1 - ANOXIC BRAIN DAMAGE, NOT ELSEWHERE CLASSIFIED Assessment/Plan 80 year old woman with history of hepatitis C, GI bleed, hypertension, ESRD on HD, presented with abdominal discomfort, was noted to have sudden cardiac arrest of unclear etiology. As per has been slowly declining in terms of health since June and has been in and out of hospitals and nursing facilities since. In Ed chest xray revealed right lower lobe consolidation, and patient was initiated on therapy for HCAP. Was noted to be unresponsive and pulseless. ACLS provided for ten minutes. The patient was extubated one day ago and she is tolerating well. No motor deficit. CT head no acute abnormalites. Patient was extubated yesterday, much improved today. On dialysis. Exam : extubated, .follows commands. No weakness. Impression: anoxic brain injury after cardiac arrest., metabolic encephalopathy. Plan: - eeg was negative for sz. - DVT prophylaxis. - consider MRI brain. - PT/OT/ST - evaluation speech and swallow - consider limiting use opioids- morphine. Critical Care time spent in ICU 35 min. Thank you for this consult.
--- NOTE | 2016-10-25 18:28 | PN ---
Progress Note, Physician Chief Complaint: AWAKE AND MORE ALERT TODAY DENIES CHEST PAIN OR SOB +APPETITE - Current Medication List Current Medications: Active Medications Acetaminophen (Ofirmev Injection -) 700 mg IVPB Q6H PRN PRN Reason: FEVER OR PAIN Stop: 10/26/16 09:58 Albuterol Sulfate (Ventolin 0.083% Nebulizer Soln -) 1 amp NEB Q4H PRN PRN Reason: SHORT OF BREATH/WHEEZING Albuterol/Ipratropium (Duoneb -) 1 amp NEB TIDR MARIE Apixaban (Eliquis -) 2.5 mg PO BID MARIE Pantoprazole Sodium (Protonix 40mg Ivpb (Pre-Docked)) 100 mls @ 200 mls/hr IVPB BID MARIE Piperacillin Sod/Tazobactam Sod (Zosyn 2.25gm Ivpb (Pre-Docked)) 50 mls @ 100 mls/hr IVPB Q8H-IV MARIE Levetiracetam (Keppra Injection -) 500 mg IVPB BID MARIE Morphine Sulfate (Morphine Injection -) 2 mg IVPUSH Q4H PRN PRN Reason: PAIN - Objective Vital Signs: Vital Signs Temperature 97.3 F L 10/25/16 10:00 Pulse Rate 74 10/25/16 17:15 Respiratory Rate 18 10/25/16 17:15 Blood Pressure 97/51 10/25/16 17:15 O2 Sat by Pulse Oximetry (%) 100 10/25/16 08:18 Constitutional: Yes: No Distress Eyes: Yes: WNL HENT: Yes: WNL Neck: Yes: WNL Cardiovascular: Yes: WNL Respiratory: Yes: WNL Gastrointestinal: Yes: WNL Musculoskeletal: Yes: Muscle Weakness Extremities: Yes: Other Edema: Yes Peripheral Pulses WNL: Yes Integumentary: Yes: WNL Wound/Incision: Yes: Clean/Dry Neurological: Yes: Confusion Psychiatric: Yes: Other Labs: CBC, BMP 10/25/16 05:00 10/25/16 05:00 INR, PTT INR 1.83 (0.82-1.09) H 10/22/16 04:45 Problem List - Problems (1) Cardiopulmonary arrest Code(s): I46.9 - CARDIAC ARREST, CAUSE UNSPECIFIED (2) DVT (deep venous thrombosis) Code(s): I82.409 - ACUTE EMBOLISM AND THOMBOS UNSP DEEP VN UNSP LOWER EXTREMITY (3) ESRD (end stage renal disease) on dialysis Code(s): N18.6 - END STAGE RENAL DISEASE Z99.2 - DEPENDENCE ON RENAL DIALYSIS (4) HCV (hepatitis C virus) Code(s): B19.20 - UNSPECIFIED VIRAL HEPATITIS C WITHOUT HEPATIC COMA (5) Metabolic encephalopathy Code(s): G93.41 - METABOLIC ENCEPHALOPATHY (6) Pneumonia Code(s): J18.9 - PNEUMONIA, UNSPECIFIED ORGANISM (7) Respiratory failure Code(s): J96.90 - RESPIRATORY FAILURE, UNSP, UNSP W HYPOXIA OR HYPERCAPNIA Assessment/Plan CTA NEGATIVE FOR PE OR DISSECTION MODIFIED BARIUM SHOWS HOLDING PHASE ON CHOPPED DIET WITH DYSPHAGIA PRECAUTIONS LABS IMPROVING RENAL FUNCTION PT EVAL AND BEDSIDE ROM IV ABX PER ID WILL NEED STRESS TEST AND CARDIAC CATH OUTPATIENT
[2016-10-25] MEDS ORDERED: PT OWN MED DRAWER 7, Y5N ONE (20:58)
[2016-10-25] MEDS: PANTOPRAZOLE SODIUM 40MG/100 ML IVPB SCH (21:07)
[2016-10-25] MEDS: APIXABAN 2.5 MG TABLET PO SCH (21:07)
--- NOTE | 2016-10-25 22:55 | EKG ---
Test Reason : Blood Pressure : / mmHG Vent. Rate : 073 BPM Atrial Rate : 073 BPM P-R Int : 216 ms QRS Dur : 078 ms QT Int : 390 ms P-R-T Axes : 048 090 048 degrees QTc Int : 429 ms SINUS RHYTHM WITH 1ST DEGREE A-V BLOCK RIGHTWARD AXIS LOW VOLTAGE QRS SEPTAL INFARCT , AGE UNDETERMINED ABNORMAL ECG WHEN COMPARED WITH ECG OF 22-OCT-2016 12:35, PREMATURE VENTRICULAR COMPLEXES ARE NO LONGER PRESENT QUESTIONABLE CHANGE IN QRS AXIS Confirmed by KEITH CASSIDY MD ([id number]) on 10/25/2016 10:55:34 PM Referred By: CLIFF HOLT Confirmed By:KEITH CASSIDY MD
[2016-10-26] MEDS: PIPERACILLIN/TAZOB 2.25 GM 50 ML IVPB SCH (03:30)
[2016-10-26 06:20] LABS: MCH 33.5 pg (25.7-33.7); MCHC 33.3 g/dl (32.0-36.0); MEAN CELL VOLUME 100.5 fl (80-96); MEAN PLT VOLUME 10.8 fl (7.5-11.1); PLATELET COUNT 42 K/MM3 (134-434); RDW 20.7 % (11.6-15.6); WHITE BLOOD COUNT 7.7 K/mm3 (4.0-10.0)
[2016-10-26] MEDS: ALBUTEROL SO4 2.5/IPRATROPIUM 0.5 INH SOL 3 ML VIAL.NEB. NEB SCH ×3 (06:25→22:05)
[2016-10-26 06:38] LABS: ALBUMIN 1.8 g/dl (3.4-5.0); MAGNESIUM 1.8 mg/dL (1.8-2.4)
[2016-10-26 06:42] LABS: BILIRUBIN,TOTAL 0.8 mg/dL (0.2-1.0); CREATININE 1.7 mg/dL (0.55-1.02); PHOSPHOROUS 1.7 mg/dL (2.5-4.9); TOT PROT 6.1 g/dl (6.4-8.2)
[2016-10-26 07:31] LABS: ANISOCYTOSIS 2+
--- NOTE | 2016-10-26 07:49 | PN ---
Progress Note, Physician Chief Complaint: ID Day 4 antibiotic Pip Tazo for "HAP" Extubated occasionally lucid mixed with periods of ?confusion Difficult to assess as dont know her baseline - Current Medication List Current Medications: Active Medications Acetaminophen (Ofirmev Injection -) 700 mg IVPB Q6H PRN PRN Reason: FEVER OR PAIN Stop: 10/26/16 09:58 Last Admin: 10/25/16 16:40 Dose: 700 mg Albuterol Sulfate (Ventolin 0.083% Nebulizer Soln -) 1 amp NEB Q4H PRN PRN Reason: SHORT OF BREATH/WHEEZING Albuterol/Ipratropium (Duoneb -) 1 amp NEB TIDR REPLACED BY [facility] Last Admin: 10/26/16 06:25 Dose: 1 amp Apixaban (Eliquis -) 2.5 mg PO BID REPLACED BY [facility] Last Admin: 10/25/16 21:07 Dose: 2.5 mg Pantoprazole Sodium (Protonix 40mg Ivpb (Pre-Docked)) 100 mls @ 200 mls/hr IVPB BID REPLACED BY [facility] Last Admin: 10/25/16 21:07 Dose: 200 mls/hr Piperacillin Sod/Tazobactam Sod (Zosyn 2.25gm Ivpb (Pre-Docked)) 50 mls @ 100 mls/hr IVPB Q8H-IV REPLACED BY [facility] Last Admin: 10/26/16 03:30 Dose: 100 mls/hr Levetiracetam (Keppra Injection -) 500 mg IVPB BID REPLACED BY [facility] Last Admin: 10/25/16 21:07 Dose: 500 mg Morphine Sulfate (Morphine Injection -) 2 mg IVPUSH Q4H PRN PRN Reason: PAIN - Objective Vital Signs: Vital Signs Temperature 98.2 F 10/26/16 06:00 Pulse Rate 84 10/26/16 06:00 Respiratory Rate 16 10/26/16 06:00 Blood Pressure 102/52 10/26/16 06:00 O2 Sat by Pulse Oximetry (%) 100 10/25/16 19:12 Constitutional: Yes: No Distress Neck: Yes: WNL, Supple Cardiovascular: Yes: Regular Rate and Rhythm, S1, S2. No: Murmur Respiratory: Yes: WNL, Regular, CTA Bilaterally, Rhonchi Gastrointestinal: Yes: WNL, Normal Bowel Sounds, Soft. No: Tenderness Extremities: Yes: Other (AVF) Edema: No Labs: CBC, BMP 10/26/16 05:20 10/26/16 05:20 INR, PTT INR 1.83 (0.82-1.09) H 10/22/16 04:45 Problem List - Problems (1) Cardiopulmonary arrest Code(s): I46.9 - CARDIAC ARREST, CAUSE UNSPECIFIED (2) ESRD (end stage renal disease) on dialysis Code(s): N18.6 - END STAGE RENAL DISEASE Z99.2 - DEPENDENCE ON RENAL DIALYSIS (3) Pneumonia Code(s): J18.9 - PNEUMONIA, UNSPECIFIED ORGANISM (4) Respiratory failure Code(s): J96.90 - RESPIRATORY FAILURE, UNSP, UNSP W HYPOXIA OR HYPERCAPNIA Assessment/Plan Microbiology 10/23/16 08:00 Sputum - Endotrachea Suction/Ventilator Gram Stain - Final 10/23/16 08:00 Sputum - Endotrachea Suction/Ventilator Sputum Culture - Final Yeast Like Organism 10/23/16 07:30 Sputum - Endotrachea Suction/Ventilator Gram Stain - Final 10/23/16 07:30 Sputum - Endotrachea Suction/Ventilator Sputum Culture - Final Yeast Like Organism 10/22/16 04:00 Nasopharyngeal Swab Influenza Types A,B Antigen (JARRET) - Final 10/22/16 04:00 Nasopharyngeal Swab - Final 10/22/16 04:00 Nasopharyngeal Swab Respiratory Virus Panel - Preliminary 10/22/16 00:30 Blood - Peripheral Venous Blood Culture - Preliminary NO GROWTH OBTAINED AFTER 96 HOURS, INCUBATION TO CONTINUE FOR 1 DAYS. 10/22/16 00:30 Blood - Peripheral Venous Blood Culture - Preliminary NO GROWTH OBTAINED AFTER 96 HOURS, INCUBATION TO CONTINUE FOR 1 DAYS. Laboratory Tests 10/22/16 10/22/16 10/26/16 04:45 10:00 05:20 WBC 7.7 Hgb 7.2 L Hct 21.7 L Plt Count 42 L AST ALT Alkaline Phosphatase Albumin Hepatitis C Antibody >11.0 H HCV Quantitation Pending HCV RNA (PCR) IUs/ml Pending HCV Liver Fibrosis Test Pending 10/26/16 05:20 WBC Hgb Hct Plt Count AST 18 D ALT 10 L Alkaline Phosphatase 60 Albumin 1.8 L D Hepatitis C Antibody HCV Quantitation HCV RNA (PCR) IUs/ml HCV Liver Fibrosis Test Assessment This 80 year old female sent for abd pain and fever as per notes subsequent cardiac arrest. Treated for possible pneumonia No fevers unclear based on chest xray if infiltrate present Low platelets noted on admission unclear if that was new etiology related to cirrhosis wiat history of Hep C Plan Would favor stopping antibiotic today and watching her HEP C markers ordered though at age 81 doubt we would treat her Consider hematology evaluation CRP ESR Helen ZHAO
[2016-10-26 09:07] LABS: C-REACTIVE PROTEIN 9.1 MG/DL (0.00-0.3)
[2016-10-26] MEDS: APIXABAN 2.5 MG TABLET PO SCH (09:22)
[2016-10-26] MEDS: PANTOPRAZOLE SODIUM 40MG/100 ML IVPB SCH (09:26)
[2016-10-26] MEDS: levETIRAcetam 500 MG/5 ML INJECTION VIAL IVPB SCH ×2 (09:26→22:05)
--- NOTE | 2016-10-26 09:30 | PN ---
Progress Note, Physician Chief Complaint: AWAKE CONFUSED - Current Medication List Current Medications: Active Medications Acetaminophen (Ofirmev Injection -) 700 mg IVPB Q6H PRN PRN Reason: FEVER OR PAIN Stop: 10/26/16 09:58 Last Admin: 10/25/16 16:40 Dose: 700 mg Albuterol Sulfate (Ventolin 0.083% Nebulizer Soln -) 1 amp NEB Q4H PRN PRN Reason: SHORT OF BREATH/WHEEZING Albuterol/Ipratropium (Duoneb -) 1 amp NEB TIDR [facility] Last Admin: 10/26/16 06:25 Dose: 1 amp Apixaban (Eliquis -) 2.5 mg PO BID [facility] Last Admin: 10/25/16 21:07 Dose: 2.5 mg Pantoprazole Sodium (Protonix 40mg Ivpb (Pre-Docked)) 100 mls @ 200 mls/hr IVPB BID [facility] Last Admin: 10/25/16 21:07 Dose: 200 mls/hr Levetiracetam (Keppra Injection -) 500 mg IVPB BID [facility] Last Admin: 10/25/16 21:07 Dose: 500 mg Morphine Sulfate (Morphine Injection -) 2 mg IVPUSH Q4H PRN PRN Reason: PAIN - Objective Vital Signs: Vital Signs Temperature 98.2 F 10/26/16 06:00 Pulse Rate 84 10/26/16 06:00 Respiratory Rate 16 10/26/16 06:00 Blood Pressure 102/52 10/26/16 06:00 O2 Sat by Pulse Oximetry (%) 100 10/25/16 19:12 Cardiovascular: Yes: Regular Rate and Rhythm, S1, S2 Respiratory: Yes: Diminished Gastrointestinal: Yes: Normal Bowel Sounds, Soft Edema: No Labs: CBC, BMP 10/26/16 05:20 10/26/16 05:20 INR, PTT INR 1.83 (0.82-1.09) H 10/22/16 04:45 Problem List - Problems (1) Cardiopulmonary arrest Code(s): I46.9 - CARDIAC ARREST, CAUSE UNSPECIFIED (2) DVT (deep venous thrombosis) Code(s): I82.409 - ACUTE EMBOLISM AND THOMBOS UNSP DEEP VN UNSP LOWER EXTREMITY (3) ESRD (end stage renal disease) on dialysis Code(s): N18.6 - END STAGE RENAL DISEASE Z99.2 - DEPENDENCE ON RENAL DIALYSIS (4) Pneumonia Code(s): J18.9 - PNEUMONIA, UNSPECIFIED ORGANISM (5) Respiratory failure Code(s): J96.90 - RESPIRATORY FAILURE, UNSP, UNSP W HYPOXIA OR HYPERCAPNIA Assessment/Plan (1) Cardiopulmonary arrest Code(s): I46.9 - CARDIAC ARREST, CAUSE UNSPECIFIED (2) DVT (deep venous thrombosis) Code(s): I82.409 - ACUTE EMBOLISM AND THOMBOS UNSP DEEP VN UNSP LOWER EXTREMITY (3) ESRD (end stage renal disease) on dialysis Code(s): N18.6 - END STAGE RENAL DISEASE Z99.2 - DEPENDENCE ON RENAL DIALYSIS (4) HCV (hepatitis C virus) Code(s): B19.20 - UNSPECIFIED VIRAL HEPATITIS C WITHOUT HEPATIC COMA (5) Metabolic encephalopathy Code(s): G93.41 - METABOLIC ENCEPHALOPATHY (6) Pneumonia Code(s): J18.9 - PNEUMONIA, UNSPECIFIED ORGANISM (7) Respiratory failure Code(s): J96.90 - RESPIRATORY FAILURE, UNSP, UNSP W HYPOXIA OR HYPERCAPNIA Assessment/Plan CTA NEGATIVE FOR PE OR DISSECTION MODIFIED BARIUM SHOWS HOLDING PHASE ON CHOPPED DIET WITH DYSPHAGIA PRECAUTIONS IMPROVING RENAL FUNCTION RENAL ON CASE PT EVAL AND BEDSIDE ROM IV ABX PER ID -> OBSERVE OFF ABx WILL NEED STRESS TEST AND CARDIAC CATH OUTPATIENT ANEMIA/FOBT +ria/LOW PLT/HCV -> HEME & GI CONSULTED PASTOR ROSS
--- NOTE | 2016-10-26 10:50 | PN ---
Teaching Attending Note Name of Resident: Howard Shea ATTENDING PHYSICIAN STATEMENT I saw and evaluated the patient. I reviewed the resident's note and discussed the case with the resident. I agree with the resident's findings and plan as documented. SUBJECTIVE: Pt seen and examined in the ICU. Mental status continues to improve. Dialyzed yesterday with 2kg removed. Still some shortness of breath this AM. OBJECTIVE: Last Vital Signs Temp Pulse Resp BP Pulse Ox 98.4 F 82 14 107/50 95 10/26/16 10:00 10/26/16 10:00 10/26/16 10:00 10/26/16 10:00 10/26/16 09:25 Intake & Output 10/23/16 10/24/16 10/25/16 10/26/16 23:59 23:59 23:59 23:59 Intake Total 1180 720 699 50 Output Total 1 Balance 1179 720 699 50 Weight 102 lb 15.294 oz 103 lb 7 oz 105 lb 9 oz 98 lb 8.746 oz Gen: tachypneic at rest Heart: RRR Lung: scattered rhonchi Abd: soft, nontender Ext: no edema CBC, BMP 10/26/16 05:20 10/26/16 05:20 CXR: pulmonary vascular congestion, bilateral effusions Active Medications Albuterol Sulfate (Ventolin 0.083% Nebulizer Soln -) 1 amp NEB Q4H PRN PRN Reason: SHORT OF BREATH/WHEEZING Last Admin: 10/26/16 09:55 Dose: 1 amp Albuterol/Ipratropium (Duoneb -) 1 amp NEB TIDR [facility] Last Admin: 10/26/16 06:25 Dose: 1 amp Apixaban (Eliquis -) 2.5 mg PO BID [facility] Last Admin: 10/26/16 09:22 Dose: 2.5 mg Pantoprazole Sodium (Protonix 40mg Ivpb (Pre-Docked)) 100 mls @ 200 mls/hr IVPB BID [facility] Last Admin: 10/26/16 09:26 Dose: 200 mls/hr Levetiracetam (Keppra Injection -) 500 mg IVPB BID [facility] Last Admin: 10/26/16 09:26 Dose: 500 mg Morphine Sulfate (Morphine Injection -) 2 mg IVPUSH Q4H PRN PRN Reason: PAIN ASSESSMENT AND PLAN: s/p PEA Cardiopulmonary Arrest s/p Hypothermia Protocol Pneumonia Shock - Septic vs Cardiogenic resolved Pulmonary HTN Lactic Acidosis resolved ESRD on HD r/o Anoxic Encephalopathy RLE distal DVT - HD per renal with ultrafiltration - antibiotics stopped, reculture if febrile - continue anticoagulation - empiric antiepileptics per neuro - PO as tolerated - aspiration precautions - rehab/PT eval - DVT/GI prophylaxis - continue ICU monitoring
--- NOTE | 2016-10-26 13:15 | PN ---
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 Reported to be tolerating PO intake. Continued verbal cues required to remind pt to focus and swallow with each bite. Selected Entries 10/25/16 10/25/16 10/25/16 02:00 06:00 07:58 Breakfast Lunch Temperature 98.6 F 98.9 F 97.7 F 10/25/16 10/25/16 10/25/16 08:18 10:00 12:00 Breakfast NPO Lunch Temperature 97.3 F L 98.9 F 10/25/16 10/25/16 10/25/16 16:00 18:00 19:10 Breakfast NPO Lunch Temperature 101.9 F H 97.7 F 10/25/16 10/26/16 10/26/16 22:00 01:59 06:00 Breakfast Lunch Temperature 98 F 98.6 F 98.2 F 10/26/16 10/26/16 10:00 13:00 Breakfast 25% Lunch 75% Temperature 98.4 F Monitor PO tolerance
--- NOTE | 2016-10-26 14:02 | PN ---
Physical Exam: SUBJECTIVE: Patient seen and examined at bedside. No overnight events. No new complaints. More alert and awake today. Denies SCHMIDT,SOB, abd. pain, n/v. OBJECTIVE: Vital Signs Period Temp Pulse Resp BP Sys/Hodgson Pulse Ox Last 24 Hr 97.7 F-101.9 F 51-97 11-18 89-114/47-63 95-100 GENERAL: Awake and following commands. HEAD: Normal with no signs of trauma. EYES: PERRL, sclera anicteric, conjunctiva clear. No ptosis. ENT: Dry mucous membranes. NECK: supple , no jvd LUNGS: Diminished breath sounds R base, scattered rhonchi HEART: Regular rate and rhythm, S1, S2 without murmur, rub or gallop. ABDOMEN: Soft, nontender, nondistended, normoactive bowel sounds, no guarding, no rebound, no hepatosplenomegaly, no masses. EXTREMITIES: 2+ pulses, warm, well-perfused, no edema. NEUROLOGICAL:awake and following verbal commands. PSYCH: anxious SKIN: Warm, dry, normal turgor, no rashes or lesions noted Laboratory Results - last 24 hr 10/26/16 10/26/16 10/26/16 05:20 05:20 05:20 WBC 7.7 RBC 2.16 L Hgb 7.2 L Hct 21.7 L MCV 100.5 H MCHC 33.3 RDW 20.7 H Plt Count 42 L MPV 10.8 Anisocytosis 2+ Macrocytosis 2+ PTT (Actin FS) 69.3 H Sodium 139 Potassium 3.5 Chloride 99 Carbon Dioxide 31 Anion Gap 9 BUN 9 D Creatinine 1.7 H D Creat Clearance w eGFR 28.99 Random Glucose 72 L D Calcium 8.0 L Phosphorus 1.7 L D Magnesium 1.8 Total Bilirubin 0.8 D AST 18 D ALT 10 L Alkaline Phosphatase 60 C-Reactive Protein 9.1 H Total Protein 6.1 L Albumin 1.8 L D 10/26/16 05:20 WBC RBC Hgb Hct MCV MCHC RDW Plt Count MPV Anisocytosis Macrocytosis PTT (Actin FS) Sodium Potassium Chloride Carbon Dioxide Anion Gap BUN Creatinine Creat Clearance w eGFR Random Glucose Calcium Phosphorus Magnesium Total Bilirubin AST ALT Alkaline Phosphatase C-Reactive Protein Cancelled Total Protein Albumin Active Medications Generic Name Dose Route Start Last Admin Trade Name Freq PRN Reason Stop Dose Admin Albuterol Sulfate 1 amp 10/25/16 13:58 10/26/16 09:55 Ventolin 0.083% Nebulizer Soln - NEB 1 amp Q4H PRN Administration SHORT OF BREATH/WHEEZING Albuterol/Ipratropium 1 amp 10/25/16 14:00 10/26/16 06:25 Duoneb - NEB 1 amp TIDR MARIE Administration Apixaban 2.5 mg 10/25/16 22:00 10/26/16 09:22 Eliquis - PO 2.5 mg BID MARIE Administration Pantoprazole Sodium 100 mls @ 200 mls/hr 10/25/16 22:00 10/26/16 09:26 Protonix 40mg Ivpb (Pre-Docked) IVPB 200 mls/hr BID MARIE Administration Levetiracetam 500 mg 10/25/16 22:00 10/26/16 09:26 Keppra Injection - IVPB 500 mg BID MARIE Administration Morphine Sulfate 2 mg 10/25/16 13:58 Morphine Injection - IVPUSH Q4H PRN PAIN ASSESSMENT/PLAN: 80 yo F F with PMHx of HCV, HTN , ESRD (HD MWF) admitted to ICU s/p Cariopulmonary arrest. Hospital DAY #5 Neuro: * Neurologic improvement today. * Continue Keppra 200mg PO BID * Pain control - morphine 2mg IV Q4PRN * Followed by Dr. Bianca Smith: * supplemental O2 via NC * maintain O2 sat >90% * Duonebs TID * Aspiration precautions. * Continue Zosyn 2.25gm (day 5) CV: * No clear etiology of arrest will get CTA today(-) for PE * US shows RLE DVT - will start Eliquis 2.5mg ABID * Removal of Central Line today * Echo shows normal LV size. Mildly reduced LV func with mild hypokinesis. Mild mitral valve thickening. Mild MR, Mild-Mod TR. Mod , mild AR, mild-mod MS, small pericardial effusion (<1cm) Renal: * HD yesterday took of 1 kg. will repeat dialysis today. * repeat CMP in AM * avoid nephrotoxins. Prophylaxis: * DVT- Heparin drip * GI- Protonix 40mg BID. F/E/N * NO IVF at this time * HD yesterday - repeat labs in AM * Will start thickened liquids. DISPO: Will continue to Monitor in ICU. Visit type - Emergency Visit Emergency Visit: Yes ED Registration Date: 10/22/16 Care time: The patient presented to the Emergency Department on the above date and was hospitalized for further evaluation of their emergent condition. - New Patient This patient is new to me today: No - Critical Care Critical Care patient: Yes Total Critical Care Time (in minutes): 33 Critical Care Statement: The care of this patient involved high complexity decision making to prevent further life threatening deterioration of the patient 's condition and/or to evalute & treat vital organ system(s) failure or risk of failure.
[2016-10-26] MEDS ORDERED: FLUCONAZOLE 50 MG TABLET PO ONE (16:00)
--- NOTE | 2016-10-26 16:03 | PN ---
Progress Note, Physician History of Present Illness: Pt seen and examined at bedside. She is awake but confused. - Current Medication List Current Medications: Active Medications Albuterol Sulfate (Ventolin 0.083% Nebulizer Soln -) 1 amp NEB Q4H PRN PRN Reason: SHORT OF BREATH/WHEEZING Last Admin: 10/26/16 09:55 Dose: 1 amp Albuterol/Ipratropium (Duoneb -) 1 amp NEB TIDR [facility] Last Admin: 10/26/16 13:50 Dose: 1 amp Apixaban (Eliquis -) 2.5 mg PO BID [facility] Last Admin: 10/26/16 09:22 Dose: 2.5 mg Fluconazole (Diflucan -) 150 mg PO ONCE ONE Stop: 10/26/16 16:01 Pantoprazole Sodium (Protonix 40mg Ivpb (Pre-Docked)) 100 mls @ 200 mls/hr IVPB BID [facility] Last Admin: 10/26/16 09:26 Dose: 200 mls/hr Levetiracetam (Keppra Injection -) 500 mg IVPB BID [facility] Last Admin: 10/26/16 09:26 Dose: 500 mg Morphine Sulfate (Morphine Injection -) 2 mg IVPUSH Q4H PRN PRN Reason: PAIN - Objective Vital Signs: Vital Signs Temperature 98.4 F 10/26/16 10:00 Pulse Rate 51 L 10/26/16 12:00 Respiratory Rate 14 10/26/16 12:00 Blood Pressure 98/51 10/26/16 12:00 O2 Sat by Pulse Oximetry (%) 100 10/26/16 11:02 Constitutional: Yes: Calm Eyes: Yes: Conjunctiva Clear HENT: Yes: Atraumatic Neck: Yes: Supple Cardiovascular: Yes: S1, S2 Respiratory: Yes: CTA Bilaterally, On Nasal O2 Gastrointestinal: Yes: Soft Genitourinary: Yes: Incontinence Musculoskeletal: Yes: Muscle Weakness Edema: Yes Edema: LLE: Trace, RLE: Trace Neurological: Yes: Confusion Labs: CBC, BMP 10/26/16 05:20 10/26/16 05:20 INR, PTT INR 1.83 (0.82-1.09) H 10/22/16 04:45 Problem List - Problems (1) Cardiopulmonary arrest Code(s): I46.9 - CARDIAC ARREST, CAUSE UNSPECIFIED (2) DVT (deep venous thrombosis) Code(s): I82.409 - ACUTE EMBOLISM AND THOMBOS UNSP DEEP VN UNSP LOWER EXTREMITY (3) ESRD (end stage renal disease) on dialysis Code(s): N18.6 - END STAGE RENAL DISEASE Z99.2 - DEPENDENCE ON RENAL DIALYSIS (4) HCV (hepatitis C virus) Code(s): B19.20 - UNSPECIFIED VIRAL HEPATITIS C WITHOUT HEPATIC COMA (5) Respiratory failure Code(s): J96.90 - RESPIRATORY FAILURE, UNSP, UNSP W HYPOXIA OR HYPERCAPNIA Assessment/Plan Current Medications Generic Name Dose Route Start Last Admin Trade Name Freq PRN Reason Stop Dose Admin Albuterol Sulfate 1 amp 10/25/16 13:58 10/26/16 09:55 Ventolin 0.083% Nebulizer Soln - NEB 1 amp Q4H PRN Administration SHORT OF BREATH/WHEEZING Albuterol/Ipratropium 1 amp 10/25/16 14:00 10/26/16 13:50 Duoneb - NEB 1 amp TIDR MARIE Administration Apixaban 2.5 mg 10/25/16 22:00 10/26/16 09:22 Eliquis - PO 2.5 mg BID MARIE Administration Fluconazole 150 mg 10/26/16 16:00 Diflucan - PO 10/26/16 16:01 ONCE ONE Pantoprazole Sodium 100 mls @ 200 mls/hr 10/25/16 22:00 10/26/16 09:26 Protonix 40mg Ivpb (Pre-Docked) IVPB 200 mls/hr BID [facility] Administration Levetiracetam 500 mg 10/25/16 22:00 10/26/16 09:26 Keppra Injection - IVPB 500 mg BID [facility]IE Administration Morphine Sulfate 2 mg 10/25/16 13:58 Morphine Injection - IVPUSH Q4H PRN PAIN Impression 1. ESRD 2. s/p cardiopulmonary arrest 3. acute respiratory failure 4. Pneumonia 5. DVT of right leg 6. S/P Seizure following the arrest 7. Right renal complex cyst > 5cms in diameter 8. Anemia 9. Thrombocytopenia 10. H/O HCV 11. H/O GIB Plan - will assess for HD in am - cont current management - mental status is not yet back to baseline - discussed with ICU team today - monitor blood pressure - monitor pulse ox - cxr reviewed - repeat cxr and labs in am Dr Espino
--- NOTE | 2016-10-26 16:45 | PN ---
Progress Note, Physician History of Present Illness: No new events Awake, asking for and sister - Current Medication List Current Medications: Active Medications Albuterol Sulfate (Ventolin 0.083% Nebulizer Soln -) 1 amp NEB Q4H PRN PRN Reason: SHORT OF BREATH/WHEEZING Last Admin: 10/26/16 09:55 Dose: 1 amp Albuterol/Ipratropium (Duoneb -) 1 amp NEB TIDR [facility] Last Admin: 10/26/16 13:50 Dose: 1 amp Pantoprazole Sodium 80 mg/ (Sodium Chloride) 100 mls @ 10 mls/hr IVPB Q10H MARIE PRN Reason: 8 MG/HR Levetiracetam (Keppra Injection -) 500 mg IVPB BID [facility] Last Admin: 10/26/16 09:26 Dose: 500 mg Morphine Sulfate (Morphine Injection -) 2 mg IVPUSH Q4H PRN PRN Reason: PAIN - Objective Vital Signs: Vital Signs Temperature 98.4 F 10/26/16 10:00 Pulse Rate 51 L 10/26/16 12:00 Respiratory Rate 14 10/26/16 12:00 Blood Pressure 98/51 10/26/16 12:00 O2 Sat by Pulse Oximetry (%) 100 10/26/16 11:02 Constitutional: Yes: No Distress Eyes: Yes: Conjunctiva Clear HENT: Yes: Atraumatic, Other (upper airway congestion) Neck: Yes: Supple Cardiovascular: Yes: Regular Rate and Rhythm Respiratory: No: Rales, Wheezes Gastrointestinal: Yes: Normal Bowel Sounds Edema: No Peripheral Pulses WNL: Yes Neurological: Yes: Alert Psychiatric: Yes: Alert Labs: CBC, BMP 10/26/16 05:20 10/26/16 05:20 INR, PTT INR 1.83 (0.82-1.09) H 10/22/16 04:45 - ....Imaging Other: Other (tele: SR) Assessment/Plan 80 yo female with HTN, ESRD -> HD, ovarian CA, who presented with abd pain -> cardiopulmonary arrest -> seizures -> intubated and was requiring norepinephrine. Patient was extubated and continues to remain off pressors. Etiology of cardiopulmonary arrest not clear. However, patient with right calf DVT -> raising question of PE (though reported rhythm was asystole). PEA may have degenerated into asystole. Trop I are indeterminate, 0.04 -> 0.10 -> 0.08 -> 0.06 10/23/16 Echo: Mild global LV dysfunction, mild MR, mild to mod TR, PASP 30-40 mmHg, mild AR, mild to mod MI, small pericardial effusion (no tamponade) However, 10/24 CTA chest did not demonstrate aortic dissection or central pulmonary embolism. Dilate aorta and pulmonary arteries. Small bilateral pleural effusions. Repeat ECG yesterday demonstrated Q waves in aVL and loss of R wave in precordium, -> new compared to 10/22/16 ECG. Repeat ECG confirmed these findings. Stress test entertained, but deferred as she is not a good candidate for intervention Blood in stool -. eliquis on hold H/H dropped HD stable RECS: Agree with holding eliquis -. GI eval Agree with transfusion Further management as per neuro/IM/ID/pulm D/w housesta
[2016-10-26] MEDS: PANTOPRAZOLE SODIUM 80 MG in SODIUM CHLORIDE 100 ML IVPB SCH (18:12)
--- NOTE | 2016-10-26 20:07 | CON.GI ---
Consult Consult Specialty:: GASTROENTEROLOGY Reason for Consultation:: RECTAL BLEEDING - History of Present Illness Chief Complaint: RECTAL BLEEDING History of Present Illness: PATIENT IS CONFUSED BUT AWAKE AND ALERT. HISTORY OBTAINED FORM CHART, NURSING STAFF AND RESIDENTS. VINITA IS A 80 YEAR OLD FEMALE WHO WAS IN HER [facility] UNTIL JUNE WHEN SHE WAS ADMITTED TO [facility] AND SHE HAS BEEN IN A RESIDENTIAL OR HOSPITAL SINCE. SHE HAS ESRD ON DIALYSIS SINCE 2006. SHE HAS DOCUMENTED HEP C BUT NEVER HAD ANY TREATMENT. SHE WAS ADMITTED TO [facility] 4 DAYS AGO. SHE HAD A CARDIOPULMONARY ARREST (OF UNKNOWN ETIOLOGY?) AND WAS INTUBATED AND PLACED ON PRESSORS. SHE WAS FOUND TO HAVE A DVT AND PLACED ON HEPARIN AND WHEN SWITCHED TO [facility] SHE BEGAN TO HAVE STREAKS OF BLOOD MIXED IN HER STOOL. EARLIER IN THE DAY SHE WAS HYPOTENSIVE BUT THIS HAS RESOLVED. SHE IS CURRENTLY GETTING BLOOD TRANSFUSIONS. SHE HAS CHRONIC THROMBOCYTOPENIA AND SOMEWHERE IN THE [facility] THERE WAS MENTION OF QUESTIONABLE ESOPHAGEAL VARICES. SHE HAS HAD NO FURTHER BLEEDING SINCE LATE AFTERNOON. - History Source History Provided By: Medical Record, Caregiver Limitations to Obtaining History: Dementia - Past Medical History Cardio/Vascular: Yes: Aneurysm, HTN Hepatobiliary: Yes: Hepatitis C Renal/: Yes: Renal Failure Infectious Disease: Yes: Other (HCV) - Past Surgical History Past Surgical History: Yes: AV Fistula/Graft - Alcohol/Substance Use Hx Alcohol Use: No - Smoking History Smoking history: Never smoked - Social History Usual Living Arrangement: Long Term Home Medications - Allergies Allergies/Adverse Reactions: Allergies Allergy/AdvReac Type Severity Reaction Status Date / Time No Known Allergies Allergy Verified 10/21/16 23:46 - Home Medications Home Medications: Ambulatory Orders Acetaminophen [Tylenol -] 650 mg PO Q6H PRN 10/22/16 Albuterol 2.5/Ipratropium 0.5 [Duoneb -] 1 neb NEB Q4H PRN 10/22/16 Amlodipine Besylate [Norvasc -] 10 mg PO DAILY 10/22/16 Calcium Carbonate/Vitamin D3 [Calcium 600 + Vit D 200 Tablet] 1 each PO DAILY Carvedilol [Coreg -] 25 mg PO BID 10/22/16 Diphenhydramine HCl [Benadryl -] 25 mg PO DAILY 10/22/16 Folic Acid/Vit Bcomp,C [Dialyvite Tablet] 1 each PO DAILY 10/22/16 Loperamide HCl [Imodium A-D] 2 mg PO Q4H PRN 10/22/16 [place]-3/Dha/Epa/Fish Oil [[place] 3 500 Softgel] 1 each PO DAILY 10/22/16 Family Disease History - Family Disease History Family History: Unable to Obtain Review of Systems Unable to obtain ROS, reason: CONFUSIONS Physical Exam-GI Vital Signs: Vital Signs Temperature 98.9 F 10/26/16 18:00 Pulse Rate 87 10/26/16 18:00 Respiratory Rate 18 10/26/16 18:00 Blood Pressure 112/51 10/26/16 18:00 O2 Sat by Pulse Oximetry (%) 100 10/26/16 11:02 Constitutional: Yes: No Distress Eyes: Yes: Conjunctiva Clear HENT: Yes: Other (ALOP[place]IA) Cardiovascular: Yes: Regular Rate and Rhythm Respiratory: Yes: Rales, SOB, Wheezes Gastrointestinal Inspection: Yes: WNL ...Auscultate: Yes: Normoactive Bowel Sounds ...Palpate: Yes: Soft ...Rectal Exam: Yes: Guaiac Positive Extremities: Yes: WNL Labs: CBC, BMP 10/26/16 05:20 10/26/16 05:20 INR, PTT INR 1.83 (0.82-1.09) H 10/22/16 04:45 Laboratory Tests 10/22/16 10/22/16 10/24/16 04:45 11:51 05:15 WBC 9.8 RBC 2.47 L Hgb 8.4 L Hct 25.1 L MCV 101.7 H MCHC 33.3 RDW 20.7 H Plt Count 40 L D PTT (Actin FS) ABG pH ABG pCO2 at Pt Temp ABG pO2 at Pt Temp ABG HCO3 ABG O2 Sat (Measured) ABG O2 Content ABG Base Excess Sodium 133 L Potassium 4.4 Chloride 95 L Carbon Dioxide 28 Anion Gap 10 BUN 31 H Creatinine 3.6 H Creat Clearance w eGFR 12.20 Random Glucose 68 L D Calcium 7.4 L Phosphorus 3.4 Magnesium 2.0 Total Bilirubin 0.6 AST 23 D ALT 10 L C-Reactive Protein Total Protein 5.6 L Albumin 1.1 L Stool Occult Blood Hepatitis C Antibody >11.0 H 10/24/16 10/25/16 10/25/16 05:15 01:37 05:00 WBC 7.5 D 8.8 RBC 2.37 L 2.39 L Hgb 7.9 L D 8.0 L Hct 23.6 L 24.0 L MCV 99.5 H 100.2 H MCHC 33.5 33.2 RDW 20.4 H 20.3 H Plt Count 62 L 49 L D PTT (Actin FS) ABG pH ABG pCO2 at Pt Temp ABG pO2 at Pt Temp ABG HCO3 ABG O2 Sat (Measured) ABG O2 Content ABG Base Excess Sodium Potassium Chloride Carbon Dioxide Anion Gap BUN Creatinine Creat Clearance w eGFR Random Glucose Calcium Phosphorus Magnesium Total Bilirubin AST ALT C-Reactive Protein Total Protein Albumin Stool Occult Blood Positive Hepatitis C Antibody 10/25/16 10/26/16 10/26/16 07:10 05:20 05:20 WBC 7.7 RBC 2.16 L Hgb 7.2 L Hct 21.7 L MCV 100.5 H MCHC 33.3 RDW 20.7 H Plt Count 42 L PTT (Actin FS) 69.3 H ABG pH 7.41 ABG pCO2 at Pt Temp 49.8 H D ABG pO2 at Pt Temp 102.0 H D ABG HCO3 30.7 H ABG O2 Sat (Measured) 96.1 ABG O2 Content 11.0 L ABG Base Excess 5.8 H Sodium Potassium Chloride Carbon Dioxide Anion Gap BUN Creatinine Creat Clearance w eGFR Random Glucose Calcium Phosphorus Magnesium Total Bilirubin AST ALT C-Reactive Protein Total Protein Albumin Stool Occult Blood Hepatitis C Antibody 10/26/16 05:20 WBC RBC Hgb Hct MCV MCHC RDW Plt Count PTT (Actin FS) ABG pH ABG pCO2 at Pt Temp ABG pO2 at Pt Temp ABG HCO3 ABG O2 Sat (Measured) ABG O2 Content ABG Base Excess Sodium 139 Potassium 3.5 Chloride 99 Carbon Dioxide 31 Anion Gap 9 BUN 9 D Creatinine 1.7 H D Creat Clearance w eGFR 28.99 Random Glucose 72 L D Calcium 8.0 L Phosphorus 1.7 L D Magnesium Total Bilirubin AST ALT 10 L C-Reactive Protein 9.1 H Total Protein 6.1 L Albumin 1.8 L D Stool Occult Blood Hepatitis C Antibody Problem List - Problems (1) GI bleeding Assessment/Plan: I AGREE WITH THE IMMEDIATE CARE PLAN OF TRANSFUSION HOWEVER GIVEN HER RENAL FALIURE, CHF AND CHEST XRAY WOULD TRANSFUSE ONLY UNIT OF BLOOD TONIGHT AND FOLLOW CBC AFTER. WOULD NEED DIALYSIS IN AM WITH BLOOD TRANSFUSION. IF HER PLATELET COUNT FALLS FURTHER DUE TO THE RECTAL BLEEDING I WOULD TRANSFUSE A UNIT OF MONODONOR PLATLETS . IF SHE CONTINUES TO BLEED IV OCTREOTIDE MIGHT BE HELPFUL DUE TO THE QUESTION OF CIRRHOSIS/PHTN. I AGREE WITH HOLD ANY ANTICOAGULATION AND THE PROTONIX DRIP. THIS PATIENT IS VERY COMPLEX AND VERY HIGH RISK. SHE CURRENTLY HAS AT LEAST 4 ORGAN SYSTEMS AT RISK AND THE EXTENT OF CARE SHOULD BE DISCUSSED WITH THE FAMILY. I WILL FOLLOW THE BLOOD COUNTS THROUGHT THE EVENING. NURSING STAFF MADE AWARE. ROSALIE TAMEZ MD Code(s): K92.2 - GASTROINTESTINAL HEMORRHAGE, UNSPECIFIED (2) HCV (hepatitis C virus) Code(s): B19.20 - UNSPECIFIED VIRAL HEPATITIS C WITHOUT HEPATIC COMA (3) Cardiopulmonary arrest Code(s): I46.9 - CARDIAC ARREST, CAUSE UNSPECIFIED (4) DVT (deep venous thrombosis) Code(s): I82.409 - ACUTE EMBOLISM AND THOMBOS UNSP DEEP VN UNSP LOWER EXTREMITY (5) ESRD (end stage renal disease) on dialysis Code(s): N18.6 - END STAGE RENAL DISEASE Z99.2 - DEPENDENCE ON RENAL DIALYSIS (6) Respiratory failure Code(s): J96.90 - RESPIRATORY FAILURE, UNSP, UNSP W HYPOXIA OR HYPERCAPNIA
--- NOTE | 2016-10-26 22:08 | CONSULT ---
Consult - text type - Consultation Consultation Note: This is a 80 yo woman from [facility] with PMH of HCV, GIB, HTN, ESRD on HD TIW who presented with abdominal discomfort and RUQ tenderness who had sudden cardiac arrest of unclear etiology. Post arrest pt developed seizures From ED pt was transferred to ICU where decorticate posturing was noted . "On arrival to ICU BP 80/40. TLC placed. IV fluids given with improvement. Cooling protocol initiated." Patient was treated with mpiric antibiotics She improved and has been extubated Noted to hav RLE distal DVT and is on hparin she is alrt, awak confusd and not able to provide much history. Actively bleeding rectally - Past Medical History Cardio/Vascular: Yes: Aneurysm, HTN Renal/: Yes: Renal Failure Infectious Disease: Yes: Other (HCV) - Past Surgical History Past Surgical History: Yes: AV Fistula/Graft - Smoking History Smoking history: Never smoked - Social History Usual Living Arrangement: [facility] Home Medications - Allergies Allergies/Adverse Reactions: Allergies Allergy/AdvReac Type Severity Reaction Status Date / Time No Known Allergies Allergy Verified 10/21/16 23:46 - Home Medications Home Medications: Ambulatory Orders Acetaminophen [Tylenol -] 650 mg PO Q6H PRN 10/22/16 Albuterol 2.5/Ipratropium 0.5 [Duoneb -] 1 neb NEB Q4H PRN 10/22/16 Amlodipine Besylate [Norvasc -] 10 mg PO DAILY 10/22/16 Calcium Carbonate/Vitamin D3 [Calcium 600 + Vit D 200 Tablet] 1 each PO DAILY Carvedilol [Coreg -] 25 mg PO BID 10/22/16 Diphenhydramine HCl [Benadryl -] 25 mg PO DAILY 10/22/16 Folic Acid/Vit Bcomp,C [Dialyvite Tablet] 1 each PO DAILY 10/22/16 Loperamide HCl [Imodium A-D] 2 mg PO Q4H PRN 10/22/16 [place]-3/Dha/Epa/Fish Oil [[place] 3 500 Softgel] 1 each PO DAILY 10/22/16 Current Medications Albuterol Sulfate (Ventolin 0.083% Nebulizer Soln -) 1 amp NEB Q4H PRN PRN Reason: SHORT OF BREATH/WHEEZING Last Admin: 10/26/16 09:55 Dose: 1 amp Albuterol/Ipratropium (Duoneb -) 1 amp NEB TIDR MARIE Last Admin: 10/27/16 06:46 Dose: 1 amp Pantoprazole Sodium 80 mg/ (Sodium Chloride) 100 mls @ 10 mls/hr IVPB Q10H MARIE PRN Reason: 8 MG/HR Last Admin: 10/27/16 03:00 Dose: 10 mls/hr Phenylephrine HCl 20,000 mcg/ (Sodium Chloride) 250 mls @ 75 mls/hr IVPB ASDIR MARIE; 100 MCG/MIN PRN Reason: Protocol Last Admin: 10/27/16 03:30 Dose: 18.8 mls/hr Levetiracetam (Keppra Injection -) 500 mg IVPB BID MARIE Last Admin: 10/26/16 22:05 Dose: 500 mg Midazolam HCl (Versed -) 2 mg IVPUSH Q3H5XD PRN PRN Reason: AGITATION Morphine Sulfate (Morphine Injection -) 2 mg IVPUSH Q4H PRN PRN Reason: PAIN Tmax. 99.6 BP--106/60 Cachectic Cardiovascular: Yes: S1, S2. No: JVD Respiratory: Yes: Other (Equal air entry bilaterally) Gastrointestinal: Yes: Soft. No: Distention Extremities: Yes: Other (LUE AVF with thrill) Edema: LLE: 1+, RLE: 1+ Assessment/Plan Impression S/P Cardio Respiratory Arrest- Pneumonia with respiratory failure S/P Seizure following the arrest- ESRD with decreased K and PO4 LE edema with severe hypoalbuminemia Right renal complex cyst > 5cms in diameter H/O HCV H/O GIB Cachexia Solal DVT Thrombocytopena/coagulopathy RLE distal DVT --has been on heparin. Bleeding actively rectally and hnce hparin stopped. Would repeat duplex and consider ivc filter if unabl to anticoagulate thrombocytopnia/coagulopathy --due to sepsis/DIC vrsus undrlying Hp. c liver disease . Will nd FFP/platelets if activly bleeding anemia --bleeding plus chronic disease --ESRD/sepsis being transfused Abnormal CT--Lt. humrus dstructive lesion and hypodensities liver --further w/u after stabilized clinically to r/o malignancy
[2016-10-26] MEDS ORDERED: FUROSEMIDE 40 MG/4 ML INJECTABLE VIAL IVPUSH STA (22:50)
[2016-10-27] MEDS: PANTOPRAZOLE SODIUM 80 MG in SODIUM CHLORIDE 100 ML IVPB SCH ×3 (03:00→22:39)
[2016-10-27 03:12] LABS: MEAN CELL VOLUME 100.1 fl (80-96); MEAN PLT VOLUME 11.2 fl (7.5-11.1); PLATELET COUNT 45 K/MM3 (134-434); RDW 21.2 % (11.6-15.6); WHITE BLOOD COUNT 9.3 K/mm3 (4.0-10.0)
[2016-10-27] MEDS ORDERED: MIDAZOLAM HCL 2 MG/2 ML SINGLE DOSE VIAL ONE ×2 (03:14→04:44)
[2016-10-27] MEDS ORDERED: PHENYLEPHRINE HCL 10 MG/1 ML SINGLE DOSE VIAL ONE ×3 (03:23→22:48)
[2016-10-27] MEDS: PHENYLEPHRINE HCL 20,000 MCG in SODIUM CHLORIDE 248 ML IVPB SCH (03:30)
[2016-10-27] MEDS ORDERED: MIDAZOLAM HCL 2 MG/2 ML SINGLE DOSE VIAL IVPUSH STA (03:42)
--- NOTE | 2016-10-27 03:48 | PROC ---
Intubation - Intubation Reason for Intubation: Respiratory Insufficiency, Respiratory Failure Time of Intubation: 03:30 Intubation Method: orotracheal Blade used: Mac Tube Size (cm): 7.5 Tube position @ lip (cm): 22 Tube position confirmed by: Direct visualization, CO2 detector, Chest x-ray, Breath sounds Breath Sounds after Intubation: equal Post Intubation Xray: Yes Remarks: GRADE II VIEW, petite airway, requires experienced ICU provider, SpO2 NEVER slipped < 98%, no Hemodynamic changes throughout.
[2016-10-27 04:11] LABS: ALLENS TEST POSITIVE; ART PUNCT SITE RIGHT BRACHIAL; ARTERIAL BLD GAS O2 SATURATION 98.3 % (90-98.9); ARTERIAL BLOOD GAS BASE EXCESS 5.8 meq/l (-2-2); ARTERIAL BLOOD GAS HCO3 29.7 meq/L (22-26); ARTERIAL BLOOD GAS pH 7.46 (7.35-7.45); LPM/O2% 100%; MECH. VENT. Y; PT. ON O2? YES; TYPE OF O2 VENT; VENT RATE 16; VT/PRESS 350
[2016-10-27] MEDS ORDERED: MIDAZOLAM HCL 10 MG/10 ML VIAL IVPUSH PRN (04:46)
[2016-10-27] MEDS ORDERED: MIDAZOLAM HCL 2 MG/2 ML SINGLE DOSE VIAL IVPUSH ONE (04:46)
[2016-10-27] MEDS: ALBUTEROL SO4 2.5/IPRATROPIUM 0.5 INH SOL 3 ML VIAL.NEB. NEB SCH ×3 (06:46→22:00)
--- NOTE | 2016-10-27 07:34 | PN ---
Progress Note, Physician Chief Complaint: ID Had to be extubated overnight Zosyn had been stopped after several days yesterday Rectal bright red blood noted - Current Medication List Current Medications: Active Medications Albuterol Sulfate (Ventolin 0.083% Nebulizer Soln -) 1 amp NEB Q4H PRN PRN Reason: SHORT OF BREATH/WHEEZING Last Admin: 10/26/16 09:55 Dose: 1 amp Albuterol/Ipratropium (Duoneb -) 1 amp NEB TIDR MARIE Last Admin: 10/27/16 06:46 Dose: 1 amp Pantoprazole Sodium 80 mg/ (Sodium Chloride) 100 mls @ 10 mls/hr IVPB Q10H MARIE PRN Reason: 8 MG/HR Last Admin: 10/27/16 03:00 Dose: 10 mls/hr Phenylephrine HCl 20,000 mcg/ (Sodium Chloride) 250 mls @ 75 mls/hr IVPB ASDIR MARIE; 100 MCG/MIN PRN Reason: Protocol Last Admin: 10/27/16 03:30 Dose: 18.8 mls/hr Levetiracetam (Keppra Injection -) 500 mg IVPB BID MARIE Last Admin: 10/26/16 22:05 Dose: 500 mg Midazolam HCl (Versed -) 2 mg IVPUSH Q3H5XD PRN PRN Reason: AGITATION Morphine Sulfate (Morphine Injection -) 2 mg IVPUSH Q4H PRN PRN Reason: PAIN - Objective Vital Signs: Vital Signs Temperature 99.6 F 10/27/16 06:02 Pulse Rate 112 H 10/27/16 06:02 Respiratory Rate 16 10/27/16 06:47 Blood Pressure 112/76 10/27/16 06:02 O2 Sat by Pulse Oximetry (%) 100 10/27/16 04:10 HENT: Yes: Other (Et tube) Cardiovascular: Yes: S1, S2 Respiratory: Yes: Rhonchi Gastrointestinal: Yes: WNL, Normal Bowel Sounds, Soft. No: Tenderness Edema: No Labs: CBC, BMP 10/27/16 02:00 10/26/16 05:20 INR, PTT INR 1.83 (0.82-1.09) H 10/22/16 04:45 Problem List - Problems (1) Cardiopulmonary arrest Code(s): I46.9 - CARDIAC ARREST, CAUSE UNSPECIFIED (2) ESRD (end stage renal disease) on dialysis Code(s): N18.6 - END STAGE RENAL DISEASE Z99.2 - DEPENDENCE ON RENAL DIALYSIS (3) Pneumonia Code(s): J18.9 - PNEUMONIA, UNSPECIFIED ORGANISM (4) Respiratory failure Code(s): J96.90 - RESPIRATORY FAILURE, UNSP, UNSP W HYPOXIA OR HYPERCAPNIA Assessment/Plan Laboratory Tests 10/26/16 10/27/16 10/27/16 05:20 02:00 04:08 WBC 9.3 Hgb 8.4 L D Hct 25.4 L D Plt Count 45 L ABG pH 7.46 H ABG pCO2 at Pt Temp 42.2 ABG pO2 at Pt Temp 474.0 H* Oxygen Flow Rate 100% AST 18 D ALT 10 L Alkaline Phosphatase 60 Chest xray with pulmonary vascular congestion cannot rule out infiltrate Assessment Respiratory failure now reintubated Anemia post transfusion rectal bleeding ESRD Dialysis Cardiopulmonary arrest Atrial fibrillation Hep C ? 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
[2016-10-27] MEDS ORDERED: PROPOFOL 100 ML ONE (09:25)
[2016-10-27] MEDS: levETIRAcetam 500 MG/5 ML INJECTION VIAL IVPB SCH ×2 (09:45→22:38)
--- NOTE | 2016-10-27 11:17 | PN ---
Teaching Attending Note Name of Resident: Howard Shea ATTENDING PHYSICIAN STATEMENT I saw and evaluated the patient. I reviewed the resident's note and discussed the case with the resident. I agree with the resident's findings and plan as documented. SUBJECTIVE: Patient seen and examined in the ICU. Deteriorated overnight. Now intubated. AC mode of vent. On Phenylephrine for hemodynamic support. Awake and responsive. Suspected GI Bleed overnight. Blood noted in the ETT Will be taken for IVC Filter. CXR: ETT at the right mainstem / increased density right lung field / (?) Right LL atelectasis Intake & Output 10/24/16 10/25/16 10/26/16 10/27/16 23:59 23:59 23:59 23:59 Intake Total 720 699 760 257.8 Balance 720 699 760 257.8 Weight 103 lb 7 oz 105 lb 9 oz 98 lb 8.746 oz 97 lb 12.8 oz Last Vital Signs Temp Pulse Resp BP Pulse Ox 99.6 F 107 H 16 106/66 100 10/27/16 06:02 10/27/16 08:01 10/27/16 08:02 10/27/16 08:01 10/27/16 08:02 Active Medications Albuterol Sulfate (Ventolin 0.083% Nebulizer Soln -) 1 amp NEB Q4H PRN PRN Reason: SHORT OF BREATH/WHEEZING Last Admin: 10/26/16 09:55 Dose: 1 amp Albuterol/Ipratropium (Duoneb -) 1 amp NEB TIDR MARIE Last Admin: 10/27/16 06:46 Dose: 1 amp Pantoprazole Sodium 80 mg/ (Sodium Chloride) 100 mls @ 10 mls/hr IVPB Q10H MARIE PRN Reason: 8 MG/HR Last Admin: 10/27/16 03:00 Dose: 10 mls/hr Phenylephrine HCl 20,000 mcg/ (Sodium Chloride) 250 mls @ 75 mls/hr IVPB ASDIR MARIE; 100 MCG/MIN PRN Reason: Protocol Last Admin: 10/27/16 03:30 Dose: 18.8 mls/hr Levetiracetam (Keppra Injection -) 500 mg IVPB BID MARIE Last Admin: 10/27/16 09:45 Dose: 500 mg Midazolam HCl (Versed -) 2 mg IVPUSH Q3H5XD PRN PRN Reason: AGITATION Morphine Sulfate (Morphine Injection -) 2 mg IVPUSH Q4H PRN PRN Reason: PAIN Gen: Intubated and awake Heart: RRR Lung: scattered rhonchi Abd: soft, nontender Ext: no edema Laboratory Results - last 24 hr 10/24/16 10/26/16 10/26/16 15:07 15:30 21:30 WBC RBC Hgb Hct MCV MCHC RDW Plt Count MPV Puncture Site ABG pH ABG pCO2 at Pt Temp ABG pO2 at Pt Temp ABG HCO3 ABG O2 Sat (Measured) ABG O2 Content ABG Base Excess Ventura Test O2 Delivery Device Oxygen Flow Rate Vent Mode Vent Rate Mechanical Rate PEEP Pressure Support Vent Stool Occult Blood Positive Positive Blood Type B POSITIVE Antibody Screen Positive H Crossmatch See Detail 10/27/16 10/27/16 02:00 04:08 WBC 9.3 RBC 2.54 L Hgb 8.4 L D Hct 25.4 L D MCV 100.1 H MCHC 33.0 RDW 21.2 H Plt Count 45 L MPV 11.2 H Puncture Site Right brachial ABG pH 7.46 H ABG pCO2 at Pt Temp 42.2 ABG pO2 at Pt Temp 474.0 H* ABG HCO3 29.7 H ABG O2 Sat (Measured) 98.3 ABG O2 Content 12.7 L ABG Base Excess 5.8 H Ventura Test Positive O2 Delivery Device Vent Oxygen Flow Rate 100% Vent Mode Ac Vent Rate 16 Mechanical Rate Y PEEP 5.0 Pressure Support Vent 350 Stool Occult Blood Blood Type Antibody Screen Crossmatch ASSESSMENT AND PLAN: s/p PEA Cardiopulmonary Arrest s/p Hypothermia Protocol Pneumonia Shock - Septic vs Cardiogenic Pulmonary HTN Lactic Acidosis resolved ESRD on HD RLE distal DVT - Transfuse Hgb 8 - antibiotics stopped and will be recultured - Hold anticoagulation - IVC filter by IR - NPO for now - aspiration precautions - Not ready for wean today - May need access - Ideally should be DNR/DNI Dr Gonzalez CCTime 35"
--- NOTE | 2016-10-27 11:23 | PN ---
Physical Exam: SUBJECTIVE: Patient seen and examined at bedside. She was found to have GIB yesterday and transfused 1 unit of PRBC.Patient was intubated overnight for acute respiratory failure. Currently intubated but awake. OBJECTIVE: Vital Signs Period Temp Pulse Resp BP Sys/Hodgson Pulse Ox Last 24 Hr 98.0 F-99.6 F 51-114 14-21 88-126/50-76 100-100 GENERAL: Awake and intubated. HEAD: Normal with no signs of trauma. EYES: PERRL, extraocular movements intact, sclera anicteric, conjunctiva clear. ENT: moist mucous membranes. NECK: Trachea midline, full range of motion, supple. REJ in place LUNGS: bilateral diminished breathsounds. Scattered Rhonchi HEART: Regular rate and rhythm, S1, S2 without murmur, rub or gallop. ABDOMEN: Soft, nontender, nondistended, normoactive bowel sounds, no guarding, no rebound, no hepatosplenomegaly, no masses. EXTREMITIES: 2+ pulses, warm, well-perfused, no edema. NEUROLOGICAL: awake PSYCH: unable to assess. SKIN: Warm, dry, normal turgor, no rashes or lesions noted Laboratory Results - last 24 hr 10/24/16 10/26/16 10/26/16 15:07 15:30 21:30 WBC RBC Hgb Hct MCV MCHC RDW Plt Count MPV Puncture Site ABG pH ABG pCO2 at Pt Temp ABG pO2 at Pt Temp ABG HCO3 ABG O2 Sat (Measured) ABG O2 Content ABG Base Excess Ventura Test O2 Delivery Device Oxygen Flow Rate Vent Mode Vent Rate Mechanical Rate PEEP Pressure Support Vent Stool Occult Blood Positive Positive Blood Type B POSITIVE Antibody Screen Positive H Crossmatch See Detail 10/27/16 10/27/16 02:00 04:08 WBC 9.3 RBC 2.54 L Hgb 8.4 L D Hct 25.4 L D MCV 100.1 H MCHC 33.0 RDW 21.2 H Plt Count 45 L MPV 11.2 H Puncture Site Right brachial ABG pH 7.46 H ABG pCO2 at Pt Temp 42.2 ABG pO2 at Pt Temp 474.0 H* ABG HCO3 29.7 H ABG O2 Sat (Measured) 98.3 ABG O2 Content 12.7 L ABG Base Excess 5.8 H Ventura Test Positive O2 Delivery Device Vent Oxygen Flow Rate 100% Vent Mode Ac Vent Rate 16 Mechanical Rate Y PEEP 5.0 Pressure Support Vent 350 Stool Occult Blood Blood Type Antibody Screen Crossmatch Active Medications Generic Name Dose Route Start Last Admin Trade Name Freq PRN Reason Stop Dose Admin Albuterol Sulfate 1 amp 10/25/16 13:58 10/26/16 09:55 Ventolin 0.083% Nebulizer Soln - NEB 1 amp Q4H PRN Administration SHORT OF BREATH/WHEEZING Albuterol/Ipratropium 1 amp 10/25/16 14:00 10/27/16 06:46 Duoneb - NEB 1 amp TIDR MARIE Administration Pantoprazole Sodium 80 mg/ 100 mls @ 10 mls/hr 10/26/16 17:00 10/27/16 03:00 Sodium Chloride IVPB 10 mls/hr Q10H MARIE Administration 8 MG/HR Phenylephrine HCl 20,000 mcg/ 250 mls @ 75 mls/hr 10/27/16 04:45 10/27/16 03:30 Sodium Chloride IVPB 18.8 mls/hr ASDIR MARIE Administration Protocol 100 MCG/MIN Levetiracetam 500 mg 10/25/16 22:00 10/27/16 09:45 Keppra Injection - IVPB 500 mg BID MARIE Administration Midazolam HCl 2 mg 10/27/16 04:46 Versed - IVPUSH Q3H5XD PRN AGITATION Morphine Sulfate 2 mg 10/25/16 13:58 Morphine Injection - IVPUSH Q4H PRN PAIN ASSESSMENT/PLAN: 80 yo F F with PMHx of HCV, HTN , ESRD (HD MWF) admitted to ICU s/p Cariopulmonary arrest. Found to have GIB and re-intubated overnight. Hospital DAY #6 Neuro: * Intubated and sedated * Continue Keppra 200mg PO BID * Pain control - morphine 2mg IV Q4PRN * Followed by Dr. Bianca Smith: * Intubated overnight for acute respiratory failure * ET tube in R mainstem will need to be pulled back. * Sadated with Propofol * maintain O2 sat >90% * Duonebs TID * Aspiration precautions. * Discontinued Zosyn CV: * US shows RLE DVT - will get IVC filter today due to GIB. * REJ placed overnight - Started on Phenylepharine * Will most likely need Central venous access. * Echo shows normal LV size. Mildly reduced LV func with mild hypokinesis. Mild mitral valve thickening. Mild MR, Mild-Mod TR. Mod , mild AR, mild-mod NC, small pericardial effusion (<1cm). * No clear etiology of arrest will get CTA today(-) for PE GI: * Blood found in stool. * Dr. Carr consulted * AC stopped * protonix drip started. * Transfused 1 U PRBC - with appropriate response. 7.2-->8.4 Renal: * HD today as per Dr. Espino. * repeat CMP in AM * avoid nephrotoxins. Prophylaxis: * DVT-no AC due to acute bleed. IVC filter to be placed today. * GI- Protonix drip F/E/N * NO IVF at this time * HD today * NPO for now will initiate tube feeds DENISSE. DISPO: Will continue to Monitor in ICU. Visit type - Emergency Visit Emergency Visit: Yes ED Registration Date: 10/22/16 Care time: The patient presented to the Emergency Department on the above date and was hospitalized for further evaluation of their emergent condition. - New Patient This patient is new to me today: No - Critical Care Critical Care patient: Yes Total Critical Care Time (in minutes): 32 Critical Care Statement: The care of this patient involved high complexity decision making to prevent further life threatening deterioration of the patient 's condition and/or to evalute & treat vital organ system(s) failure or risk of failure.
[2016-10-27 13:54] LABS: BASOPHIL 0.9 % (0-2.0); EOSINOPHIL 0.1 % (0-4.5); MCH 32.9 pg (25.7-33.7); MEAN CELL VOLUME 99.7 fl (80-96); MEAN PLT VOLUME 10.1 fl (7.5-11.1); RDW 21.7 % (11.6-15.6); WHITE BLOOD COUNT 9.6 K/mm3 (4.0-10.0)
[2016-10-27 13:57] LABS: PLATELET COUNT 36 K/MM3 (134-434)
[2016-10-27] MEDS: PROPOFOL 100 ML IVPB SCH ×2 (14:16→19:00)
[2016-10-27 14:23] LABS: ALBUMIN 1.8 g/dl (3.4-5.0); CALCIUM 8.1 mg/dL (8.5-10.1); CREATININE 2.7 mg/dL (0.55-1.02)
[2016-10-27 14:24] LABS: TOT PROT 6.8 g/dl (6.4-8.2)
--- NOTE | 2016-10-27 14:49 | PROC ---
Central Line Insertion Indication: Vasopressor Risks and Benefits Explained: Yes Consent on Chart: Yes Central Line: Triple Lumen Catheter Anesthesia: 1% Lidocaine Sterile Technique: Yes Ultrasound Guided Assistance: Yes Position: Left Internal Jugular Post Insertion: Yes: Chest X-Ray Ordered Sterile Dressing Applied: Yes
--- NOTE | 2016-10-27 15:54 | PN ---
Progress Note (short form) - Note Progress Note: Patient seen and examined reintubated Last Vital Signs Temp Pulse Resp BP Pulse Ox 99.2 F 100 H 16 98/49 91 L 10/27/16 10:00 10/27/16 13:46 10/27/16 14:15 10/27/16 13:46 10/27/16 12:34 HEENT: JUAN, EOM Intact Cor: RSR, No murmurs, No gallops Lungs: Clear to P&A Abd: Soft, Normal bowel sounds, No organomegaly Ext:No significant edema Abnormal Lab Results 10/24/16 10/27/16 10/27/16 15:07 02:00 04:08 RBC 2.54 L Hgb 8.4 L D Hct 25.4 L D MCV 100.1 H RDW 21.2 H Plt Count 45 L MPV 11.2 H PTT (Actin FS) ABG pH 7.46 H ABG pO2 at Pt Temp 474.0 H* ABG HCO3 29.7 H ABG O2 Content 12.7 L ABG Base Excess 5.8 H Creatinine Calcium ALT Albumin Antibody Screen Positive H Crossmatch See Detail 10/27/16 10/27/16 10/27/16 13:35 13:35 13:35 RBC 2.73 L Hgb 9.0 L Hct 27.2 L MCV 99.7 H RDW 21.7 H Plt Count 36 L* MPV PTT (Actin FS) 53.5 H ABG pH ABG pO2 at Pt Temp ABG HCO3 ABG O2 Content ABG Base Excess Creatinine 2.7 H D Calcium 8.1 L ALT 10 L Albumin 1.8 L Antibody Screen Crossmatch 10/27/16 13:35 RBC Hgb Hct MCV RDW Plt Count MPV PTT (Actin FS) ABG pH ABG pO2 at Pt Temp ABG HCO3 ABG O2 Content ABG Base Excess Creatinine Calcium ALT Albumin Antibody Screen Positive H Crossmatch Current Medications Albuterol Sulfate (Ventolin 0.083% Nebulizer Soln -) 1 amp NEB Q4H PRN PRN Reason: SHORT OF BREATH/WHEEZING Last Admin: 10/26/16 09:55 Dose: 1 amp Albuterol/Ipratropium (Duoneb -) 1 amp NEB TIDR MARIE Last Admin: 10/27/16 06:46 Dose: 1 amp Pantoprazole Sodium 80 mg/ (Sodium Chloride) 100 mls @ 10 mls/hr IVPB Q10H MARIE PRN Reason: 8 MG/HR Last Admin: 10/27/16 14:15 Dose: 10 mls/hr Phenylephrine HCl 20,000 mcg/ (Sodium Chloride) 250 mls @ 75 mls/hr IVPB ASDIR MARIE; 100 MCG/MIN PRN Reason: Protocol Last Admin: 10/27/16 03:30 Dose: 18.8 mls/hr Propofol (Diprivan -) 100 mls @ 1.331 mls/hr IVPB TITR MARIE; 5 MCG/KG/MIN PRN Reason: Protocol Last Admin: 10/27/16 14:16 Dose: 2.662 mls/hr Levetiracetam (Keppra Injection -) 500 mg IVPB BID MARIE Last Admin: 10/27/16 09:45 Dose: 500 mg Midazolam HCl (Versed -) 2 mg IVPUSH Q3H5XD PRN PRN Reason: AGITATION Morphine Sulfate (Morphine Injection -) 2 mg IVPUSH Q4H PRN PRN Reason: PAIN A/P Pneumonia with respiratory failure S/P Seizure following the arrest- ESRD LE edema with severe hypoalbuminemia Right renal complex cyst > 5cms in diameter H/O HCV H/O GIB Cachexia Soleal DVT Thrombocytopena/coagulopathy RLE distal DVT --had been on heparin. Bleeding actively rectally and hnce hparin was stopped. s/p ivc filter placement today thrombocytopnia/coagulopathy --due to sepsis/DIC vrsus undrlying Hp. c liver disease . Will need FFP/platelets if actively bleeding anemia --bleeding plus chronic disease --ESRD/sepsis being transfused Abnormal CT--Lt. humrus dstructive lesion and hypodensities liver --further w/u after stabilized clinically to r/o malignancy
[2016-10-27] MEDS: ALBUMIN HUMAN 25% 100 ML VIAL IVPB SCH ×4 (16:30→18:00)
--- NOTE | 2016-10-27 16:34 | PN ---
Progress Note, Physician History of Present Illness: Received one U PRBC last night (per GI) Went into respiratory failure -. intubation. Reza started for low BP Also went into afib -. rate ok Went for IVC filter today - Current Medication List Current Medications: Active Medications Albumin Human (Albumin Human 25% -) 12.5 gm IVPB Q30M MARIE Stop: 10/27/16 17:46 Albuterol Sulfate (Ventolin 0.083% Nebulizer Soln -) 1 amp NEB Q4H PRN PRN Reason: SHORT OF BREATH/WHEEZING Last Admin: 10/26/16 09:55 Dose: 1 amp Albuterol/Ipratropium (Duoneb -) 1 amp NEB TIDR MARIE Last Admin: 10/27/16 15:15 Dose: 1 amp Pantoprazole Sodium 80 mg/ (Sodium Chloride) 100 mls @ 10 mls/hr IVPB Q10H MARIE PRN Reason: 8 MG/HR Last Admin: 10/27/16 14:15 Dose: 10 mls/hr Phenylephrine HCl 20,000 mcg/ (Sodium Chloride) 250 mls @ 75 mls/hr IVPB ASDIR MARIE; 100 MCG/MIN PRN Reason: Protocol Last Admin: 10/27/16 03:30 Dose: 18.8 mls/hr Propofol (Diprivan -) 100 mls @ 1.331 mls/hr IVPB TITR MARIE; 5 MCG/KG/MIN PRN Reason: Protocol Last Admin: 10/27/16 14:16 Dose: 2.662 mls/hr Levetiracetam (Keppra Injection -) 500 mg IVPB BID [facility] Last Admin: 10/27/16 09:45 Dose: 500 mg Midazolam HCl (Versed -) 2 mg IVPUSH Q3H5XD PRN PRN Reason: AGITATION Morphine Sulfate (Morphine Injection -) 2 mg IVPUSH Q4H PRN PRN Reason: PAIN - Objective Vital Signs: Vital Signs Temperature 98.8 F 10/27/16 15:00 Pulse Rate 114 H 10/27/16 15:00 Respiratory Rate 16 10/27/16 15:00 Blood Pressure 102/58 10/27/16 15:00 O2 Sat by Pulse Oximetry (%) 91 L 10/27/16 12:34 Constitutional: Yes: No Distress Eyes: Yes: Conjunctiva Clear HENT: Yes: Other (ETT) Neck: Yes: Other (TLC) Cardiovascular: Yes: Pulse Irregular Respiratory: Yes: Rhonchi Gastrointestinal: Yes: Normal Bowel Sounds Edema: No Peripheral Pulses WNL: Yes Neurological: Yes: Other (sedated) Labs: CBC, BMP 10/27/16 13:35 10/27/16 13:35 INR, PTT INR 1.83 (0.82-1.09) H 10/22/16 04:45 Assessment/Plan 80 yo female with HTN, ESRD -> HD, ovarian CA, who presented with abd pain -> cardiopulmonary arrest -> seizures -> intubated and was requiring norepinephrine. Patient was extubated and continues to remain off pressors. Etiology of cardiopulmonary arrest not clear. However, patient with right calf DVT -> raising question of PE (though reported rhythm was asystole). PEA may have degenerated into asystole. Trop I are indeterminate, 0.04 -> 0.10 -> 0.08 -> 0.06 10/23/16 Echo: Mild global LV dysfunction, mild MR, mild to mod TR, PASP 30-40 mmHg, mild AR, mild to mod NJ, small pericardial effusion (no tamponade) However, 10/24 CTA chest did not demonstrate aortic dissection or central pulmonary embolism. Dilate aorta and pulmonary arteries. Small bilateral pleural effusions. Repeat ECG yesterday demonstrated Q waves in aVL and loss of R wave in precordium, -> new compared to 10/22/16 ECG. Repeat ECG confirmed these findings. Stress test entertained, but deferred as she is not a good candidate for intervention Blood in stool yesterday-. eliquis held H/H dropped yesterday S/P 1 U PRBC yesterday Went into respiratory failure -. intubation. Some congestion on CXR Now getting HD Had IVC filter this AM RECS: HD Titrate reza as tolerated Vent management per pulm Further management as per neuro/IM/ID/pulm
--- NOTE | 2016-10-27 16:36 | PN ---
Progress Note, Physician History of Present Illness: Pt seen and examined at bedside. She was intubated last night for respiratory failure. Pt was also found to have a GI bleed and was given a unit of blood. - Current Medication List Current Medications: Active Medications Albumin Human (Albumin Human 25% -) 12.5 gm IVPB Q30M MARIE Stop: 10/27/16 17:46 Albuterol Sulfate (Ventolin 0.083% Nebulizer Soln -) 1 amp NEB Q4H PRN PRN Reason: SHORT OF BREATH/WHEEZING Last Admin: 10/26/16 09:55 Dose: 1 amp Albuterol/Ipratropium (Duoneb -) 1 amp NEB TIDR MARIE Last Admin: 10/27/16 15:15 Dose: 1 amp Pantoprazole Sodium 80 mg/ (Sodium Chloride) 100 mls @ 10 mls/hr IVPB Q10H MARIE PRN Reason: 8 MG/HR Last Admin: 10/27/16 14:15 Dose: 10 mls/hr Phenylephrine HCl 20,000 mcg/ (Sodium Chloride) 250 mls @ 75 mls/hr IVPB ASDIR MARIE; 100 MCG/MIN PRN Reason: Protocol Last Admin: 10/27/16 03:30 Dose: 18.8 mls/hr Propofol (Diprivan -) 100 mls @ 1.331 mls/hr IVPB TITR MARIE; 5 MCG/KG/MIN PRN Reason: Protocol Last Admin: 10/27/16 14:16 Dose: 2.662 mls/hr Levetiracetam (Keppra Injection -) 500 mg IVPB BID [facility] Last Admin: 10/27/16 09:45 Dose: 500 mg Midazolam HCl (Versed -) 2 mg IVPUSH Q3H5XD PRN PRN Reason: AGITATION Morphine Sulfate (Morphine Injection -) 2 mg IVPUSH Q4H PRN PRN Reason: PAIN - Objective Vital Signs: Vital Signs Temperature 98.8 F 10/27/16 15:00 Pulse Rate 114 H 10/27/16 15:00 Respiratory Rate 16 10/27/16 15:00 Blood Pressure 102/58 10/27/16 15:00 O2 Sat by Pulse Oximetry (%) 91 L 10/27/16 12:34 Constitutional: Yes: Calm Eyes: Yes: Conjunctiva Clear HENT: Yes: Atraumatic Neck: Yes: Supple Cardiovascular: Yes: S1, S2 Respiratory: Yes: Mechanically Ventilated Gastrointestinal: Yes: Soft Genitourinary: Yes: Incontinence Extremities: Yes: WNL Edema: Yes Edema: LLE: Trace, RLE: Trace Neurological: Yes: Lethargy Labs: CBC, BMP 10/27/16 13:35 10/27/16 13:35 INR, PTT INR 1.83 (0.82-1.09) H 10/22/16 04:45 - ....Imaging Chest X-ray: Report Reviewed Problem List - Problems (1) Cardiopulmonary arrest Code(s): I46.9 - CARDIAC ARREST, CAUSE UNSPECIFIED (2) DVT (deep venous thrombosis) Code(s): I82.409 - ACUTE EMBOLISM AND THOMBOS UNSP DEEP VN UNSP LOWER EXTREMITY (3) ESRD (end stage renal disease) on dialysis Code(s): N18.6 - END STAGE RENAL DISEASE Z99.2 - DEPENDENCE ON RENAL DIALYSIS (4) HCV (hepatitis C virus) Code(s): B19.20 - UNSPECIFIED VIRAL HEPATITIS C WITHOUT HEPATIC COMA (5) Respiratory failure Code(s): J96.90 - RESPIRATORY FAILURE, UNSP, UNSP W HYPOXIA OR HYPERCAPNIA Assessment/Plan Current Medications Generic Name Dose Route Start Last Admin Trade Name Freq PRN Reason Stop Dose Admin Albumin Human 12.5 gm 10/27/16 16:15 Albumin Human 25% - IVPB 10/27/16 17:46 Q30M MARIE Albuterol Sulfate 1 amp 10/25/16 13:58 10/26/16 09:55 Ventolin 0.083% Nebulizer Soln - NEB 1 amp Q4H PRN Administration SHORT OF BREATH/WHEEZING Albuterol/Ipratropium 1 amp 10/25/16 14:00 10/27/16 15:15 Duoneb - NEB 1 amp TIDR MARIE Administration Pantoprazole Sodium 80 mg/ 100 mls @ 10 mls/hr 10/26/16 17:00 10/27/16 14:15 Sodium Chloride IVPB 10 mls/hr Q10H MARIE Administration 8 MG/HR Phenylephrine HCl 20,000 mcg/ 250 mls @ 75 mls/hr 10/27/16 04:45 10/27/16 03:30 Sodium Chloride IVPB 18.8 mls/hr ASDIR MARIE Administration Protocol 100 MCG/MIN Propofol 100 mls @ 1.331 mls/hr 10/27/16 14:15 10/27/16 14:16 Diprivan - IVPB 2.662 mls/hr TITR MARIE Administration Protocol 5 MCG/KG/MIN Levetiracetam 500 mg 10/25/16 22:00 10/27/16 09:45 Keppra Injection - IVPB 500 mg BID MARIE Administration Midazolam HCl 2 mg 10/27/16 04:46 Versed - IVPUSH Q3H5XD PRN AGITATION Morphine Sulfate 2 mg 10/25/16 13:58 Morphine Injection - IVPUSH Q4H PRN PAIN Impression 1. ESRD 2. s/p cardiopulmonary arrest 3. acute respiratory failure 4. Pneumonia 5. DVT of right leg 6. S/P Seizure following the arrest 7. Right renal complex cyst > 5cms in diameter 8. Anemia 9. Thrombocytopenia 10. H/O HCV 11. active GI bleed Plan - cont vent support - pt has antibodies and can not get a transfusion during HD - will arrange for HD today - monitor blood pressure - discussed with ICU team today - monitor pulse ox - cxr reviewed - monitor Hg Dr Espino
--- NOTE | 2016-10-27 17:15 | PN ---
GI Progress Note Subjective: GASTROENTEROLOGY EVENTS OF LAST NIGHT NOTED, CURRENTLY INTUBATED AND ON PRESSORS/SEDATED, GETTING DIALYSIS BUT NO TRANSFUSION WHILE IN DIALYSIS DUE TO ANTIBODIES. NO GI BLEEDING SOME BLEEDING IN THE MOUTH, H&H HAS IMPROVED BUT PLATELETS HAVE DROPPED A LITTLE - Objective Vital Signs: Vital Signs Temperature 98.8 F 10/27/16 15:00 Pulse Rate 105 H 10/27/16 16:15 Respiratory Rate 18 10/27/16 16:15 Blood Pressure 102/58 10/27/16 16:15 O2 Sat by Pulse Oximetry (%) 91 L 10/27/16 12:34 Constitutional: Calm, Other (SEDATED) Eyes: Yes: Conjunctiva Clear HENT: Yes: Other (INTUBATED) Cardiovascular: Yes: Regular Rate and Rhythm Respiratory: Yes: Mechanically Ventilated Gastrointestinal Inspection: Yes: WNL ...Auscultate: Yes: Normoactive Bowel Sounds ...Palpate: Yes: Soft Extremities: Yes: WNL Labs: CBC, BMP 10/27/16 13:35 10/27/16 13:35 INR, PTT INR 1.83 (0.82-1.09) H 10/22/16 04:45 Laboratory Tests 10/22/16 10/26/16 10/27/16 04:45 05:20 13:35 WBC 7.7 RBC 2.16 L Hgb 7.2 L Hct 21.7 L MCV 100.5 H MCHC 33.3 RDW 20.7 H Plt Count 42 L MPV 10.8 Neutrophils % Lymphocytes % Monocytes % Eosinophils % Basophils % Sodium 144 Potassium 3.9 Chloride 104 Carbon Dioxide 28 Anion Gap 12 BUN 14 D Creatinine 2.7 H D Creat Clearance w eGFR 17.00 Random Glucose 74 Calcium 8.1 L Total Bilirubin 1.0 D AST 23 D ALT 10 L Alkaline Phosphatase 77 D Total Protein 6.8 Albumin 1.8 L Hep Bs Antigen Negative Hep Bs Ab Concentration Non reactive Hep B Core Total Ab Negative Hep B Core IgM Ab Negative Hepatitis Be Antibody Negative Hepatitis Be Antigen Negative 10/27/16 13:35 WBC 9.6 RBC 2.73 L Hgb 9.0 L Hct 27.2 L MCV 99.7 H MCHC 33.0 RDW 21.7 H Plt Count 36 L* MPV 10.1 Neutrophils % 81.0 Lymphocytes % 13.4 D Monocytes % 4.6 Eosinophils % 0.1 D Basophils % 0.9 D Sodium Potassium Chloride Carbon Dioxide Anion Gap BUN Creatinine Creat Clearance w eGFR Random Glucose Calcium Total Bilirubin AST ALT Alkaline Phosphatase Total Protein Albumin Hep Bs Antigen Hep Bs Ab Concentration Hep B Core Total Ab Hep B Core IgM Ab Hepatitis Be Antibody Hepatitis Be Antigen Problem List - Problems (1) GI bleeding Assessment/Plan: GI BLEEDING HAS STOPPED , SHE IS NOW INTUBATED, SEDATED AND IS ON PRESSORS. CONTINUE PROTONIX AND SUPPORTIVE CARE. IF BLEEDING CONTINUES WOULD NEED PLATELETS AND BLOOD. Code(s): K92.2 - GASTROINTESTINAL HEMORRHAGE, UNSPECIFIED (2) Respiratory failure Code(s): J96.90 - RESPIRATORY FAILURE, UNSP, UNSP W HYPOXIA OR HYPERCAPNIA (3) HCV (hepatitis C virus) Code(s): B19.20 - UNSPECIFIED VIRAL HEPATITIS C WITHOUT HEPATIC COMA (4) Cardiopulmonary arrest Code(s): I46.9 - CARDIAC ARREST, CAUSE UNSPECIFIED (5) DVT (deep venous thrombosis) Code(s): I82.409 - ACUTE EMBOLISM AND THOMBOS UNSP DEEP VN UNSP LOWER EXTREMITY (6) ESRD (end stage renal disease) on dialysis Code(s): N18.6 - END STAGE RENAL DISEASE Z99.2 - DEPENDENCE ON RENAL DIALYSIS
--- NOTE | 2016-10-27 23:02 | PN ---
Progress Note, Physician - Current Medication List Current Medications: Active Medications Albuterol Sulfate (Ventolin 0.083% Nebulizer Soln -) 1 amp NEB Q4H PRN PRN Reason: SHORT OF BREATH/WHEEZING Last Admin: 10/26/16 09:55 Dose: 1 amp Albuterol/Ipratropium (Duoneb -) 1 amp NEB TIDR MARIE Last Admin: 10/27/16 22:00 Dose: 1 amp Pantoprazole Sodium 80 mg/ (Sodium Chloride) 100 mls @ 10 mls/hr IVPB Q10H MARIE PRN Reason: 8 MG/HR Last Admin: 10/27/16 22:39 Dose: 10 mls/hr Phenylephrine HCl 20,000 mcg/ (Sodium Chloride) 250 mls @ 75 mls/hr IVPB ASDIR MARIE; 100 MCG/MIN PRN Reason: Protocol Last Admin: 10/27/16 03:30 Dose: 18.8 mls/hr Propofol (Diprivan -) 100 mls @ 1.331 mls/hr IVPB TITR MARIE; 5 MCG/KG/MIN PRN Reason: Protocol Last Admin: 10/27/16 19:00 Dose: 8 mls/hr Levetiracetam (Keppra Injection -) 500 mg IVPB BID MARIE Last Admin: 10/27/16 22:38 Dose: 500 mg Midazolam HCl (Versed -) 2 mg IVPUSH Q3H5XD PRN PRN Reason: AGITATION Morphine Sulfate (Morphine Injection -) 2 mg IVPUSH Q4H PRN PRN Reason: PAIN - Objective Vital Signs: Vital Signs Temperature 98.2 F 10/27/16 22:00 Pulse Rate 96 H 10/27/16 22:00 Respiratory Rate 16 10/27/16 22:00 Blood Pressure 110/68 10/27/16 22:00 O2 Sat by Pulse Oximetry (%) 100 10/27/16 19:33 Cardiovascular: Yes: Regular Rate and Rhythm, S1, S2 Respiratory: Yes: CTA Bilaterally Gastrointestinal: Yes: Normal Bowel Sounds Labs: CBC, BMP 10/27/16 13:35 10/27/16 13:35 INR, PTT INR 1.83 (0.82-1.09) H 10/22/16 04:45 Problem List - Problems (1) Cardiopulmonary arrest Code(s): I46.9 - CARDIAC ARREST, CAUSE UNSPECIFIED (2) DVT (deep venous thrombosis) Code(s): I82.409 - ACUTE EMBOLISM AND THOMBOS UNSP DEEP VN UNSP LOWER EXTREMITY (3) ESRD (end stage renal disease) on dialysis Code(s): N18.6 - END STAGE RENAL DISEASE Z99.2 - DEPENDENCE ON RENAL DIALYSIS (4) Pneumonia Code(s): J18.9 - PNEUMONIA, UNSPECIFIED ORGANISM (5) Respiratory failure Code(s): J96.90 - RESPIRATORY FAILURE, UNSP, UNSP W HYPOXIA OR HYPERCAPNIA Assessment/Plan (1) Cardiopulmonary arrest Code(s): I46.9 - CARDIAC ARREST, CAUSE UNSPECIFIED (2) DVT (deep venous thrombosis) Code(s): I82.409 - ACUTE EMBOLISM AND THOMBOS UNSP DEEP VN UNSP LOWER EXTREMITY (3) ESRD (end stage renal disease) on dialysis Code(s): N18.6 - END STAGE RENAL DISEASE Z99.2 - DEPENDENCE ON RENAL DIALYSIS (4) HCV (hepatitis C virus) Code(s): B19.20 - UNSPECIFIED VIRAL HEPATITIS C WITHOUT HEPATIC COMA (5) Metabolic encephalopathy Code(s): G93.41 - METABOLIC ENCEPHALOPATHY (6) Pneumonia Code(s): J18.9 - PNEUMONIA, UNSPECIFIED ORGANISM (7) Respiratory failure Code(s): J96.90 - RESPIRATORY FAILURE, UNSP, UNSP W HYPOXIA OR HYPERCAPNIA Assessment/Plan CTA NEGATIVE FOR PE OR DISSECTION MODIFIED BARIUM SHOWS HOLDING PHASE ON CHOPPED DIET WITH DYSPHAGIA PRECAUTIONS IMPROVING RENAL FUNCTION RENAL ON CASE PT EVAL AND BEDSIDE ROM IV ABX PER ID -> OBSERVE OFF ABx WILL NEED STRESS TEST AND CARDIAC CATH OUTPATIENT ANEMIA/FOBT +ria/LOW PLT/HCV -> HEME & GI CONSULTED FORMULA BOTTLER VANDANA
[2016-10-28 00:06] LABS: HCV LOG 10 5.536 (.)
[2016-10-28] MEDS: PHENYLEPHRINE HCL 20,000 MCG in SODIUM CHLORIDE 248 ML IVPB SCH ×3 (04:45→20:45)
[2016-10-28 05:35] LABS: MCH 32.7 pg (25.7-33.7); MCHC 33.3 g/dl (32.0-36.0); MEAN CELL VOLUME 98.4 fl (80-96); MEAN PLT VOLUME 11.2 fl (7.5-11.1); RDW 20.9 % (11.6-15.6); WHITE BLOOD COUNT 7.3 K/mm3 (4.0-10.0)
[2016-10-28] MEDS: ALBUTEROL SO4 2.5/IPRATROPIUM 0.5 INH SOL 3 ML VIAL.NEB. NEB SCH ×3 (05:44→21:30)
[2016-10-28 06:01] LABS: PLATELET COUNT 29 K/MM3 (134-434)
[2016-10-28] MEDS: PROPOFOL 100 ML IVPB SCH ×3 (06:48→22:05)
[2016-10-28 06:49] LABS: INR 1.79 (0.82-1.09); PROTHROMBIN TIME (PATIENT) 19.9 SEC (9.98-11.88)
[2016-10-28] MEDS ORDERED: VANCOMYCIN 1 GRAM (PRE-DOCKED) 250 ML IVPB ONE (07:25)
--- NOTE | 2016-10-28 07:25 | PN ---
Progress Note, Physician Chief Complaint: ID Bleeding from multiple sources mouth rectum Intubated pressors No fevers but sepsis must be considered as cause for ? DIC - Current Medication List Current Medications: Active Medications Albuterol Sulfate (Ventolin 0.083% Nebulizer Soln -) 1 amp NEB Q4H PRN PRN Reason: SHORT OF BREATH/WHEEZING Last Admin: 10/26/16 09:55 Dose: 1 amp Albuterol/Ipratropium (Duoneb -) 1 amp NEB TIDR MARIE Last Admin: 10/28/16 05:44 Dose: 1 amp Pantoprazole Sodium 80 mg/ (Sodium Chloride) 100 mls @ 10 mls/hr IVPB Q10H MARIE PRN Reason: 8 MG/HR Last Admin: 10/27/16 22:39 Dose: 10 mls/hr Phenylephrine HCl 20,000 mcg/ (Sodium Chloride) 250 mls @ 75 mls/hr IVPB ASDIR MARIE; 100 MCG/MIN PRN Reason: Protocol Last Admin: 10/28/16 04:45 Dose: 22.5 mls/hr Propofol (Diprivan -) 100 mls @ 1.331 mls/hr IVPB TITR MARIE; 5 MCG/KG/MIN PRN Reason: Protocol Last Admin: 10/28/16 06:48 Dose: 8 mls/hr Levetiracetam (Keppra Injection -) 500 mg IVPB BID MARIE Last Admin: 10/27/16 22:38 Dose: 500 mg Midazolam HCl (Versed -) 2 mg IVPUSH Q3H5XD PRN PRN Reason: AGITATION Morphine Sulfate (Morphine Injection -) 2 mg IVPUSH Q4H PRN PRN Reason: PAIN - Objective Vital Signs: Vital Signs Temperature 98 F 10/28/16 06:00 Pulse Rate 100 H 10/28/16 06:00 Respiratory Rate 16 10/28/16 06:35 Blood Pressure 107/53 10/28/16 06:00 O2 Sat by Pulse Oximetry (%) 100 10/27/16 19:33 Constitutional: Yes: Other (INtubated) HENT: Yes: Other (Bleeding frm mouth) Cardiovascular: Yes: Tachycardia, S1, S2 Respiratory: Yes: WNL, Regular, CTA Bilaterally. No: Rhonchi Gastrointestinal: Yes: Soft. No: Tenderness, Tenderness, Rebound Edema: No Labs: CBC, BMP 10/28/16 05:15 10/27/16 13:35 INR, PTT INR 1.79 (0.82-1.09) H 10/28/16 05:15 Fibrinogen 111.0 mg/dL (238-498) L 10/28/16 05:15 Problem List - Problems (1) Cardiopulmonary arrest Code(s): I46.9 - CARDIAC ARREST, CAUSE UNSPECIFIED (2) ESRD (end stage renal disease) on dialysis Code(s): N18.6 - END STAGE RENAL DISEASE Z99.2 - DEPENDENCE ON RENAL DIALYSIS (3) Pneumonia Code(s): J18.9 - PNEUMONIA, UNSPECIFIED ORGANISM (4) Respiratory failure Code(s): J96.90 - RESPIRATORY FAILURE, UNSP, UNSP W HYPOXIA OR HYPERCAPNIA Assessment/Plan Microbiology Laboratory Tests 10/28/16 10/28/16 05:15 05:15 WBC 7.3 Hgb 7.6 L D Hct 23.0 L D Plt Count 29 L* INR 1.79 H Assessment Sepsis considered as cause of hypotension and possible DIC Coagulopathy suspect underlying cirrhosis ESRD with baseline low platelets Respiratory failure ESRD Cardiopulmonary arrest Anemia Plan In view of preterminal status will give antibiotics for possibility of infection realted DIC coagulopthy Cultures sent Vancomycin and dose of Cefepime today Hematology Helen ZHAO
[2016-10-28] MEDS ORDERED: CEFEPIME HCL 2 GM VIAL (RESTRICTED TO ID) IVPB ONE (07:26)
[2016-10-28] MEDS ORDERED: CEFEPIME 2 GM/100 ML BAG PRE-DOCKED IVPB ONE (07:45)
--- NOTE | 2016-10-28 08:39 | PN ---
Progress Note (short form) - Note Progress Note: PULM / CCM Pt seen & examined in the ICU. Pt remains intubated & sedated on AC mode of Vent. ACTIVE MEDS Albuterol Sulfate (Ventolin 0.083% Nebulizer Soln -) 1 amp NEB Q4H PRN PRN Reason: SHORT OF BREATH/WHEEZING Last Admin: 10/26/16 09:55 Dose: 1 amp Albuterol/Ipratropium (Duoneb -) 1 amp NEB TIDR MARIE Last Admin: 10/28/16 05:44 Dose: 1 amp Pantoprazole Sodium 80 mg/ (Sodium Chloride) 100 mls @ 10 mls/hr IVPB Q10H MARIE PRN Reason: 8 MG/HR Last Admin: 10/27/16 22:39 Dose: 10 mls/hr Phenylephrine HCl 20,000 mcg/ (Sodium Chloride) 250 mls @ 75 mls/hr IVPB ASDIR MARIE; 100 MCG/MIN PRN Reason: Protocol Last Titration: 10/28/16 08:38 Dose: 25 mcg/min Propofol (Diprivan -) 100 mls @ 1.331 mls/hr IVPB TITR MARIE; 5 MCG/KG/MIN PRN Reason: Protocol Last Titration: 10/28/16 08:38 Dose: 35 mcg/kg/min Cefepime HCl 0.5 gm/ Dextrose 50 mls @ 100 mls/hr IVPB DAILY MARIE Levetiracetam (Keppra Injection -) 500 mg IVPB BID MARIE Last Admin: 10/27/16 22:38 Dose: 500 mg Midazolam HCl (Versed -) 2 mg IVPUSH Q3H5XD PRN PRN Reason: AGITATION Morphine Sulfate (Morphine Injection -) 2 mg IVPUSH Q4H PRN PRN Reason: PAIN PE: V/S Period Temp Pulse Resp BP Sys/Hodgson Pulse Ox Last 24 Hr 98 F-99.2 F 92-115 16-18 67-118/31-70 90-100 I's & O's 10/25/16 10/26/16 10/27/16 10/28/16 23:59 23:59 23:59 23:59 Intake Total 699 760 899.8 510 Balance 699 760 899.8 510 Weight 47.882 kg 44.7 kg 44.361 kg 44.622 kg GEN: Elderly woman Intubated & sedated in bed HEENT: PERRL, an-icteric, epistaxis, perioral bleeding PULM: R coarse, L basilar crackles CV: nml S1 S2, Irreg/Irreg, unable to appreciate any G/M/R ABD: + BS, S/S N/T X4Q EXT: + Pulses, WWPX4, LE Dialysis fistula CBC, BMP 10/28/16 05:15 10/27/16 13:35 ABG ABG pH 7.46 (7.35-7.45) H 10/27/16 04:08 ABG pCO2 at Pt Temp 42.2 mmHg (35-45) 10/27/16 04:08 ABG pO2 at Pt Temp 474.0 mmHg (70-100) H* 10/27/16 04:08 ABG HCO3 29.7 meq/L (22-26) H 10/27/16 04:08 ABG O2 Sat (Measured) 98.3 % (90-98.9) 10/27/16 04:08 ABG O2 Content 12.7 % vol (15-22) L 10/27/16 04:08 ABG Base Excess 5.8 meq/l (-2-2) H 10/27/16 04:08 INR, PTT INR 1.79 (0.82-1.09) H 10/28/16 05:15 Fibrinogen 111.0 mg/dL (238-498) L 10/28/16 05:15 MICRO 10/22/16 04:00 Nasopharyngeal Swab Respiratory Virus Panel - Final 10/22/16 00:30 Blood - Peripheral Venous Blood Culture - Final NO GROWTH AFTER 5 DAYS INCUBATION 10/22/16 00:30 Blood - Peripheral Venous Blood Culture - Final NO GROWTH AFTER 5 DAYS INCUBATION 10/23/16 08:00 Sputum - Endotrachea Suction/Ventilator Gram Stain - Final 10/23/16 08:00 Sputum - Endotrachea Suction/Ventilator Sputum Culture - Final Yeast Like Organism 10/23/16 07:30 Sputum - Endotrachea Suction/Ventilator Gram Stain - Final 10/23/16 07:30 Sputum - Endotrachea Suction/Ventilator Sputum Culture - Final Yeast Like Organism 10/22/16 04:00 Nasopharyngeal Swab Influenza Types A,B Antigen (JARRET) - Final 10/22/16 04:00 Nasopharyngeal Swab - Final CXR 10/27: ETT & L IJ TLC in good position, R side multilobar pna (My Read) ASSESS: This is a 80 y/o woman w/: 1. ESRD on HD 2. s/p cardiopulmonary arrest 3. acute respiratory failure 4. HCAP 5. R LE DVT (Now S/P IVC) 6. S/P Seizure following the arrest 7. Right renal complex cyst > 5cms in diameter 8. Anemia 9. Thrombocytopenia 10. H/O HCV 11. active GIB PLAN: -Cont mechanical ventilation -Sedation for Vent Sync -Nebs -Cont PPI gtt -Normal Transfusion Thresholds -GI -F/u Clxrs -Cont Vanc & Cefe (HCAP) -ID -Pressors prn for MAP 65-75 -HD TOMORROW -RENAL Consult -HEME Consult -Cont Keppra -Hold off on AC in the setting of profound thrombocytopenia +/- DIC -PPI (gtt) -> (Resp Fail & Renal Fail) -C CONTACTS: Carlyle Bullock () [phone]
[2016-10-28] MEDS: levETIRAcetam 500 MG/5 ML INJECTION VIAL IVPB SCH ×2 (09:00→21:43)
[2016-10-28] MEDS: PANTOPRAZOLE SODIUM 80 MG in SODIUM CHLORIDE 100 ML IVPB SCH ×3 (09:01→20:30)
[2016-10-28] MEDS ORDERED: BENZOIN/ALOE VERA/STORAX/TOLU 58 ML BOTTLE ONE (09:09)
--- NOTE | 2016-10-28 09:55 | PN ---
Progress Note, Physician History of Present Illness: Patient remains intubated/sedated. - Current Medication List Current Medications: Active Medications Albuterol Sulfate (Ventolin 0.083% Nebulizer Soln -) 1 amp NEB Q4H PRN PRN Reason: SHORT OF BREATH/WHEEZING Last Admin: 10/26/16 09:55 Dose: 1 amp Albuterol/Ipratropium (Duoneb -) 1 amp NEB TIDR MARIE Last Admin: 10/28/16 05:44 Dose: 1 amp Pantoprazole Sodium 80 mg/ (Sodium Chloride) 100 mls @ 10 mls/hr IVPB Q10H MARIE PRN Reason: 8 MG/HR Last Admin: 10/28/16 09:01 Dose: 10 mls/hr Phenylephrine HCl 20,000 mcg/ (Sodium Chloride) 250 mls @ 75 mls/hr IVPB ASDIR MARIE; 100 MCG/MIN PRN Reason: Protocol Last Titration: 10/28/16 09:05 Dose: 20 mcg/min Propofol (Diprivan -) 100 mls @ 1.331 mls/hr IVPB TITR MARIE; 5 MCG/KG/MIN PRN Reason: Protocol Last Titration: 10/28/16 08:38 Dose: 35 mcg/kg/min Cefepime HCl 0.5 gm/ Dextrose 50 mls @ 100 mls/hr IVPB DAILY [facility] Levetiracetam (Keppra Injection -) 500 mg IVPB BID [facility] Last Admin: 10/28/16 09:00 Dose: 500 mg Midazolam HCl (Versed -) 2 mg IVPUSH Q3H5XD PRN PRN Reason: AGITATION Morphine Sulfate (Morphine Injection -) 2 mg IVPUSH Q4H PRN PRN Reason: PAIN - Objective Vital Signs: Vital Signs Temperature 98 F 10/28/16 06:00 Pulse Rate 92 H 10/28/16 09:05 Respiratory Rate 16 10/28/16 09:45 Blood Pressure 116/64 10/28/16 09:05 O2 Sat by Pulse Oximetry (%) 100 10/28/16 08:43 Cardiovascular: Yes: Pulse Irregular. No: Murmur Respiratory: Yes: Intubated, Mechanically Ventilated Gastrointestinal: Yes: Normal Bowel Sounds, Soft. No: Distention Edema: No Peripheral Pulses WNL: Yes Neurological: Yes: Other (Sedated) Labs: CBC, BMP 10/28/16 05:15 10/27/16 13:35 INR, PTT INR 1.79 (0.82-1.09) H 10/28/16 05:15 Fibrinogen 111.0 mg/dL (238-498) L 10/28/16 05:15 Assessment/Plan 80 yo female with HTN, ESRD -> HD, ovarian CA, who presented with abd pain -> cardiopulmonary arrest -> seizures -> intubated and was requiring norepinephrine. Patient was extubated and continues to remain off pressors. Etiology of cardiopulmonary arrest not clear. However, patient with right calf DVT per 10/22/16 Doppler -> raising question of PE (though reported rhythm was asystole). PEA may have degenerated into asystole. Trop I were indeterminate, 0.04 -> 0.10 -> 0.08 -> 0.06. 10/23/16 Echo: Mild global LV dysfunction, mild MR, mild to mod TR, PASP 30-40 mmHg, mild AR, mild to mod AR, small pericardial effusion (no tamponade) 10/24 CTA chest did not demonstrate aortic dissection or central pulmonary embolism. Dilate aorta and pulmonary arteries. Small bilateral pleural effusions. Repeat ECG on 10/25/16 Q waves in aVL and loss of R wave in precordium -> new compared to 10/22/16 ECG. Repeat ECG confirmed these findings. Stress test entertained, but deferred as she is not a good candidate for intervention. Patient developed probable GI bleed while on Eliquis with drop in Hgb. Eliquis was held. Underwent transfusion with PRBC on but went into respiratory failure -> intubated. Underwent IV filter yesterday. Repeat venous Doppler on 10/27/16 did not demonstrate previously reported right calf DVT on 10/22/16 study. Patient also developed new onset atrial fibrillation. Likely secondary to recent events. Currently adequate HR 90s given patient's current clinical status. Worsening anemia and thrombocytopenia. Poor prognosis. RECS: Patient not candidate for further anticoagulation. No further cardiac work-up or intervention at this time. Would recommend discussion regarding patient's code status with family. Vent management per critical care/pulmonary. Further management as per primary team/neuro/ID. Will follow. Call with questions.
[2016-10-28] MEDS ORDERED: CEFEPIME HCL 2 GM VIAL (RESTRICTED TO ID) IVPB SCH (10:00)
--- NOTE | 2016-10-28 11:57 | PN ---
GI Progress Note Subjective: GI NOte ( covering for Dr. Carr) : Hb has dropped to 7.6 yet there is no outpouring of melena or red blood per rectum. In fact rectal exam yields a pasty dark brown stool which is guaiac positive but not classic wet melena indicative of heavy bleeding. This raises the specter of a retroperitoneal bleed particularly given her thrombocytopenia, poassible DIC, portal hypertension and exposure to heparin. If Hb continues to drop will need to obtain CT with IV contrast and arrange postcontrast dialysis. While doing the rectal exam and brown fluid exited from the vagina. This raises the specter of a colovaginal or colovesical fistula. There is a liver lesion on chest on imaging that may reflect a hepatoma. Will order AFP. - Objective Vital Signs: Vital Signs Temperature 97 F L 10/28/16 10:04 Pulse Rate 95 H 10/28/16 11:09 Respiratory Rate 16 10/28/16 11:16 Blood Pressure 103/63 10/28/16 11:09 O2 Sat by Pulse Oximetry (%) 98 10/28/16 11:16 CBC,CMP WBC 7.3 K/mm3 (4.0-10.0) 10/28/16 05:15 RBC 2.34 M/mm3 (3.60-5.2) L 10/28/16 05:15 Hgb 7.6 GM/dL (10.7-15.3) L D 10/28/16 05:15 Hct 23.0 % (32.4-45.2) L D 10/28/16 05:15 MCV 98.4 fl (80-96) H 10/28/16 05:15 MCHC 33.3 g/dl (32.0-36.0) 10/28/16 05:15 RDW 20.9 % (11.6-15.6) H 10/28/16 05:15 Plt Count 29 K/MM3 (134-434) L* 10/28/16 05:15 MPV 11.2 fl (7.5-11.1) H D 10/28/16 05:15 Neutrophils % 81.0 % (42.8-82.8) 10/27/16 13:35 Lymphocytes % 13.4 % (8-40) D 10/27/16 13:35 Monocytes % 4.6 % (3.8-10.2) 10/27/16 13:35 Eosinophils % 0.1 % (0-4.5) D 10/27/16 13:35 Basophils % 0.9 % (0-2.0) D 10/27/16 13:35 Toxic Granulation Few 10/22/16 00:30 Platelet Estimate Decreased (NORMAL) 10/22/16 04:45 Platelet Comment No clumping noted 10/22/16 04:45 Platelet Comment No clotting detected 10/22/16 04:45 Polychromasia 1+ 10/22/16 04:45 Hypochromic-Microcytic 2+ 10/22/16 04:45 Poikilocytosis 1+ 10/22/16 04:45 Anisocytosis 2+ 10/26/16 05:20 Microcytosis 1+ 10/22/16 04:45 Macrocytosis 2+ 10/26/16 05:20 Tear Drop Cells 1+ 10/22/16 04:45 Fragmented RBCs 1+ 10/22/16 04:45 Morphology Comment 10/22/16 00:30 Sodium 144 mmol/L (136-145) 10/27/16 13:35 Potassium 3.9 mmol/L (3.5-5.1) 10/27/16 13:35 Chloride 104 mmol/L (98-107) 10/27/16 13:35 Carbon Dioxide 28 mmol/L (21-32) 10/27/16 13:35 Anion Gap 12 (8-16) 10/27/16 13:35 BUN 14 mg/dL (7-18) D 10/27/16 13:35 Creatinine 2.7 mg/dL (0.55-1.02) H D 10/27/16 13:35 Creat Clearance w eGFR 17.00 (>60) 10/27/16 13:35 POC Glucometer 111.29287 UNITS (()) 10/22/16 03:10 Random Glucose 74 mg/dL (74-106) 10/27/16 13:35 Lactic Acid 1.405 mmol/L (0.4-2.0) 10/24/16 05:10 Calcium 8.1 mg/dL (8.5-10.1) L 10/27/16 13:35 Phosphorus 1.7 mg/dL (2.5-4.9) L D 10/26/16 05:20 Magnesium 1.8 mg/dL (1.8-2.4) 10/26/16 05:20 Total Bilirubin 1.0 mg/dL (0.2-1.0) D 10/27/16 13:35 Direct Bilirubin 0.4 mg/dL (0.0-0.2) H 10/22/16 04:45 AST 23 U/L (15-37) D 10/27/16 13:35 ALT 10 U/L (12-78) L 10/27/16 13:35 Alkaline Phosphatase 77 U/L (45-117) D 10/27/16 13:35 Ammonia 38.53 umol/L (11-32) H 10/22/16 04:45 Creatine Kinase 19 IU/L (26-192) L 10/23/16 05:15 Troponin I 0.06 ng/ml (0.00-0.05) H 10/23/16 05:15 C-Reactive Protein 9.1 MG/DL (0.00-0.3) H 10/26/16 05:20 Total Protein 6.8 g/dl (6.4-8.2) 10/27/16 13:35 Albumin 1.8 g/dl (3.4-5.0) L 10/27/16 13:35 Total Amylase 28 U/L (25-115) 10/22/16 04:45 Lipase 139 U/L (73-393) 10/22/16 04:45 Current Medications Generic Name Dose Route Start Last Admin Trade Name Freq PRN Reason Stop Dose Admin Albuterol Sulfate 1 amp 10/25/16 13:58 10/26/16 09:55 Ventolin 0.083% Nebulizer Soln - NEB 1 amp Q4H PRN Administration SHORT OF BREATH/WHEEZING Albuterol/Ipratropium 1 amp 10/25/16 14:00 10/28/16 05:44 Duoneb - NEB 1 amp TIDR MARIE Administration Pantoprazole Sodium 80 mg/ 100 mls @ 10 mls/hr 10/26/16 17:00 10/28/16 09:01 Sodium Chloride IVPB 10 mls/hr Q10H MARIE Administration 8 MG/HR Phenylephrine HCl 20,000 mcg/ 250 mls @ 75 mls/hr 10/27/16 04:45 10/28/16 11:09 Sodium Chloride IVPB 18 mcg/min ASDIR MARIE Titration Protocol 100 MCG/MIN Propofol 100 mls @ 1.331 mls/hr 10/27/16 14:15 10/28/16 08:38 Diprivan - IVPB 35 mcg/kg/min TITR MARIE Titration Protocol 5 MCG/KG/MIN Cefepime HCl 0.5 gm/ Dextrose 50 mls @ 100 mls/hr 10/29/16 10:00 IVPB DAILY [facility] Levetiracetam 500 mg 10/25/16 22:00 10/28/16 09:00 Keppra Injection - IVPB 500 mg BID [facility] Administration Midazolam HCl 2 mg 10/27/16 04:46 Versed - IVPUSH Q3H5XD PRN AGITATION Morphine Sulfate 2 mg 10/25/16 13:58 Morphine Injection - IVPUSH Q4H PRN PAIN Constitutional: Other (On propofol drip) Gastrointestinal Inspection: Yes: Other (No flank ecchymoses) ...Auscultate: Yes: Hypoactive Bowel Sounds ...Palpate: Yes: Soft, Other (no masses,) Labs: CBC, BMP 10/28/16 05:15 10/27/16 13:35 INR, PTT INR 1.79 (0.82-1.09) H 10/28/16 05:15 Fibrinogen 111.0 mg/dL (238-498) L 10/28/16 05:15 Assessment/Plan Progressive anemia out of proportion to rectal emissions raises possibility of a retroperitoneal bleed. Agree with need for platelet transfusions. If Hb drops further will pursue CT scan with IV contrast and start octreotide. Repeat CBC ordered for 2PM. Will order AFP and liver sonogram to exclude hepatoma ( if CT is not done). A colovaginal fistula will require a gastrograffin enema when the patient is more stable. A nut process helper consult may be considered.
[2016-10-28] MEDS ORDERED: PHENYLEPHRINE HCL 10 MG/1 ML SINGLE DOSE VIAL ONE ×2 (13:00→21:37)
[2016-10-28 14:08] LABS: MCH 32.9 pg (25.7-33.7); MCHC 33.2 g/dl (32.0-36.0); MEAN PLT VOLUME 10.5 fl (7.5-11.1); RDW 20.8 % (11.6-15.6); WHITE BLOOD COUNT 8.2 K/mm3 (4.0-10.0)
[2016-10-28 14:15] LABS: PLATELET COUNT 25 K/MM3 (134-434)
[2016-10-28 14:34] LABS: INR 1.67 (0.82-1.09); PROTHROMBIN TIME (PATIENT) 18.6 SEC (9.98-11.88)
[2016-10-28 14:54] LABS: CALCIUM 8.2 mg/dL (8.5-10.1); CREATININE 1.8 mg/dL (0.55-1.02)
--- NOTE | 2016-10-28 16:13 | PN ---
Progress Note, Physician - Current Medication List Current Medications: Active Medications Albuterol Sulfate (Ventolin 0.083% Nebulizer Soln -) 1 amp NEB Q4H PRN PRN Reason: SHORT OF BREATH/WHEEZING Last Admin: 10/26/16 09:55 Dose: 1 amp Albuterol/Ipratropium (Duoneb -) 1 amp NEB TIDR MARIE Last Admin: 10/28/16 14:40 Dose: 1 amp Pantoprazole Sodium 80 mg/ (Sodium Chloride) 100 mls @ 10 mls/hr IVPB Q10H [facility] PRN Reason: 8 MG/HR Last Admin: 10/28/16 09:01 Dose: 10 mls/hr Phenylephrine HCl 20,000 mcg/ (Sodium Chloride) 250 mls @ 75 mls/hr IVPB ASDIR MARIE; 100 MCG/MIN PRN Reason: Protocol Last Admin: 10/28/16 13:56 Dose: 13.5 mls/hr Propofol (Diprivan -) 100 mls @ 1.331 mls/hr IVPB TITR MARIE; 5 MCG/KG/MIN PRN Reason: Protocol Last Admin: 10/28/16 13:52 Dose: 9.316 mls/hr Cefepime HCl 0.5 gm/ Dextrose 50 mls @ 100 mls/hr IVPB DAILY [facility] Levetiracetam (Keppra Injection -) 500 mg IVPB BID [facility] Last Admin: 10/28/16 09:00 Dose: 500 mg Midazolam HCl (Versed -) 2 mg IVPUSH Q3H5XD PRN PRN Reason: AGITATION Morphine Sulfate (Morphine Injection -) 2 mg IVPUSH Q4H PRN PRN Reason: PAIN - Objective Vital Signs: Vital Signs Temperature 97.0 F L 10/28/16 14:01 Pulse Rate 90 10/28/16 14:01 Respiratory Rate 16 10/28/16 15:16 Blood Pressure 101/55 10/28/16 14:01 O2 Sat by Pulse Oximetry (%) 98 10/28/16 15:16 Cardiovascular: Yes: Regular Rate and Rhythm, S1, S2 Respiratory: Yes: Diminished Gastrointestinal: Yes: Normal Bowel Sounds Labs: CBC, BMP 10/28/16 13:40 10/28/16 13:40 INR, PTT INR 1.67 (0.82-1.09) H 10/28/16 13:40 Fibrinogen 111.0 mg/dL (238-498) L 10/28/16 13:40 Problem List - Problems (1) Cardiopulmonary arrest Code(s): I46.9 - CARDIAC ARREST, CAUSE UNSPECIFIED (2) DVT (deep venous thrombosis) Code(s): I82.409 - ACUTE EMBOLISM AND THOMBOS UNSP DEEP VN UNSP LOWER EXTREMITY (3) ESRD (end stage renal disease) on dialysis Code(s): N18.6 - END STAGE RENAL DISEASE Z99.2 - DEPENDENCE ON RENAL DIALYSIS (4) Pneumonia Code(s): J18.9 - PNEUMONIA, UNSPECIFIED ORGANISM (5) Respiratory failure Code(s): J96.90 - RESPIRATORY FAILURE, UNSP, UNSP W HYPOXIA OR HYPERCAPNIA Assessment/Plan (1) Cardiopulmonary arrest Code(s): I46.9 - CARDIAC ARREST, CAUSE UNSPECIFIED (2) DVT (deep venous thrombosis) Code(s): I82.409 - ACUTE EMBOLISM AND THOMBOS UNSP DEEP VN UNSP LOWER EXTREMITY (3) ESRD (end stage renal disease) on dialysis Code(s): N18.6 - END STAGE RENAL DISEASE Z99.2 - DEPENDENCE ON RENAL DIALYSIS (4) HCV (hepatitis C virus) Code(s): B19.20 - UNSPECIFIED VIRAL HEPATITIS C WITHOUT HEPATIC COMA (5) Metabolic encephalopathy Code(s): G93.41 - METABOLIC ENCEPHALOPATHY (6) Pneumonia Code(s): J18.9 - PNEUMONIA, UNSPECIFIED ORGANISM (7) Respiratory failure Code(s): J96.90 - RESPIRATORY FAILURE, UNSP, UNSP W HYPOXIA OR HYPERCAPNIA Assessment/Plan CTA NEGATIVE FOR PE OR DISSECTION MODIFIED BARIUM SHOWS HOLDING PHASE ON CHOPPED DIET WITH DYSPHAGIA PRECAUTIONS IMPROVING RENAL FUNCTION RENAL ON CASE PT EVAL AND BEDSIDE ROM IV ABX PER ID -> OBSERVE OFF ABx WILL NEED STRESS TEST AND CARDIAC CATH OUTPATIENT ANEMIA/FOBT +ria/LOW PLT/HCV -> HEME & GI CONSULTED PASTOR ROSS
--- NOTE | 2016-10-28 17:11 | PN ---
Progress Note, Physician History of Present Illness: Pt seen and examined at bedside. She remains in the ICU intubated. - Current Medication List Current Medications: Active Medications Albuterol Sulfate (Ventolin 0.083% Nebulizer Soln -) 1 amp NEB Q4H PRN PRN Reason: SHORT OF BREATH/WHEEZING Last Admin: 10/26/16 09:55 Dose: 1 amp Albuterol/Ipratropium (Duoneb -) 1 amp NEB TIDR MARIE Last Admin: 10/28/16 14:40 Dose: 1 amp Pantoprazole Sodium 80 mg/ (Sodium Chloride) 100 mls @ 10 mls/hr IVPB Q10H [facility] PRN Reason: 8 MG/HR Last Admin: 10/28/16 09:01 Dose: 10 mls/hr Phenylephrine HCl 20,000 mcg/ (Sodium Chloride) 250 mls @ 75 mls/hr IVPB ASDIR MARIE; 100 MCG/MIN PRN Reason: Protocol Last Admin: 10/28/16 13:56 Dose: 13.5 mls/hr Propofol (Diprivan -) 100 mls @ 1.331 mls/hr IVPB TITR MARIE; 5 MCG/KG/MIN PRN Reason: Protocol Last Admin: 10/28/16 13:52 Dose: 9.316 mls/hr Cefepime HCl 0.5 gm/ Dextrose 50 mls @ 100 mls/hr IVPB DAILY [facility] Levetiracetam (Keppra Injection -) 500 mg IVPB BID [facility] Last Admin: 10/28/16 09:00 Dose: 500 mg Midazolam HCl (Versed -) 2 mg IVPUSH Q3H5XD PRN PRN Reason: AGITATION Morphine Sulfate (Morphine Injection -) 2 mg IVPUSH Q4H PRN PRN Reason: PAIN - Objective Vital Signs: Vital Signs Temperature 97.0 F L 10/28/16 14:01 Pulse Rate 90 10/28/16 14:01 Respiratory Rate 16 10/28/16 16:36 Blood Pressure 101/55 10/28/16 14:01 O2 Sat by Pulse Oximetry (%) 98 10/28/16 15:16 Eyes: Yes: Conjunctiva Clear Neck: Yes: Supple Cardiovascular: Yes: S1, S2 Respiratory: Yes: Mechanically Ventilated Gastrointestinal: Yes: Soft Genitourinary: Yes: Incontinence Musculoskeletal: Yes: Muscle Weakness Edema: Yes Edema: LLE: 1+, RLE: 1+ Neurological: Yes: Lethargy Labs: CBC, BMP 10/28/16 13:40 10/28/16 13:40 INR, PTT INR 1.67 (0.82-1.09) H 10/28/16 13:40 Fibrinogen 111.0 mg/dL (238-498) L 10/28/16 13:40 - ....Imaging Chest X-ray: Report Reviewed Problem List - Problems (1) Cardiopulmonary arrest Code(s): I46.9 - CARDIAC ARREST, CAUSE UNSPECIFIED (2) DVT (deep venous thrombosis) Code(s): I82.409 - ACUTE EMBOLISM AND THOMBOS UNSP DEEP VN UNSP LOWER EXTREMITY (3) ESRD (end stage renal disease) on dialysis Code(s): N18.6 - END STAGE RENAL DISEASE Z99.2 - DEPENDENCE ON RENAL DIALYSIS (4) HCV (hepatitis C virus) Code(s): B19.20 - UNSPECIFIED VIRAL HEPATITIS C WITHOUT HEPATIC COMA (5) Respiratory failure Code(s): J96.90 - RESPIRATORY FAILURE, UNSP, UNSP W HYPOXIA OR HYPERCAPNIA Assessment/Plan Current Medications Generic Name Dose Route Start Last Admin Trade Name Freq PRN Reason Stop Dose Admin Albuterol Sulfate 1 amp 10/25/16 13:58 10/26/16 09:55 Ventolin 0.083% Nebulizer Soln - NEB 1 amp Q4H PRN Administration SHORT OF BREATH/WHEEZING Albuterol/Ipratropium 1 amp 10/25/16 14:00 10/28/16 14:40 Duoneb - NEB 1 amp TIDR MARIE Administration Pantoprazole Sodium 80 mg/ 100 mls @ 10 mls/hr 10/26/16 17:00 10/28/16 09:01 Sodium Chloride IVPB 10 mls/hr Q10H MAR[facility] Administration 8 MG/HR Phenylephrine HCl 20,000 mcg/ 250 mls @ 75 mls/hr 10/27/16 04:45 10/28/16 13:56 Sodium Chloride IVPB 13.5 mls/hr ASDIR MARIE Administration Protocol 100 MCG/MIN Propofol 100 mls @ 1.331 mls/hr 10/27/16 14:15 10/28/16 13:52 Diprivan - IVPB 9.316 mls/hr TITR MARIE Administration Protocol 5 MCG/KG/MIN Cefepime HCl 0.5 gm/ Dextrose 50 mls @ 100 mls/hr 10/29/16 10:00 IVPB DAILY [facility] Levetiracetam 500 mg 10/25/16 22:00 10/28/16 09:00 Keppra Injection - IVPB 500 mg BID [facility] Administration Midazolam HCl 2 mg 10/27/16 04:46 Versed - IVPUSH Q3H5XD PRN AGITATION Morphine Sulfate 2 mg 10/25/16 13:58 Morphine Injection - IVPUSH Q4H PRN PAIN Impression 1. ESRD 2. s/p cardiopulmonary arrest 3. acute respiratory failure 4. Pneumonia 5. DVT of right leg 6. S/P Seizure following the arrest 7. Right renal complex cyst > 5cms in diameter 8. Anemia 9. Thrombocytopenia 10. H/O HCV 11. active GI bleed Plan - cont vent support - pt received a unit of platelets and is getting a second unit now - she will receive a unit of blood as well - discussed with GI and they recommend a ct scan to r/o retroperitoneal bleed and to transfuse pt - pt has antibodies and can not get a transfusion during HD - will arrange for HD today to remove volume, pt is on 50 percent fio2 on vent - monitor blood pressure - discussed with ICU team today - monitor pulse ox - cxr reviewed - monitor Hg Dr Espino
[2016-10-29] MEDS ORDERED: PHENYLEPHRINE HCL 10 MG/1 ML SINGLE DOSE VIAL ONE ×4 (00:51→20:33)
[2016-10-29] MEDS: PHENYLEPHRINE HCL 20,000 MCG in SODIUM CHLORIDE 248 ML IVPB SCH ×2 (04:45→13:10)
[2016-10-29] MEDS: PANTOPRAZOLE SODIUM 80 MG in SODIUM CHLORIDE 100 ML IVPB SCH ×2 (06:01→14:46)
[2016-10-29] MEDS: ALBUTEROL SO4 2.5/IPRATROPIUM 0.5 INH SOL 3 ML VIAL.NEB. NEB SCH ×3 (06:09→21:30)
[2016-10-29 06:36] LABS: BASOPHIL 0.9 % (0-2.0); EOSINOPHIL 0.7 % (0-4.5); MCH 31.5 pg (25.7-33.7); MCHC 33.9 g/dl (32.0-36.0); MEAN CELL VOLUME 92.9 fl (80-96); MEAN PLT VOLUME 11.5 fl (7.5-11.1); NEUTROPHILS 75.7 % (42.8-82.8); RDW 23.4 % (11.6-15.6); WHITE BLOOD COUNT 7.1 K/mm3 (4.0-10.0)
[2016-10-29 06:44] LABS: PLATELET COUNT 24 K/MM3 (134-434)
[2016-10-29 07:09] LABS: INR 1.5 (0.82-1.09); PROTHROMBIN TIME (PATIENT) 16.6 SEC (9.98-11.88)
[2016-10-29 07:19] LABS: CALCIUM 7.8 mg/dL (8.5-10.1); CREATININE 1.9 mg/dL (0.55-1.02)
[2016-10-29 07:20] LABS: ALBUMIN 2.1 g/dl (3.4-5.0); BILIRUBIN,TOTAL 1.6 mg/dL (0.2-1.0); C-REACTIVE PROTEIN 10.2 MG/DL (0.00-0.3); CALCIUM 7.8 mg/dL (8.5-10.1); CREATININE 1.9 mg/dL (0.55-1.02); TOT PROT 6.2 g/dl (6.4-8.2)
--- NOTE | 2016-10-29 08:00 | PN ---
Progress Note (short form) - Note Progress Note: Progress Note: PULM / CCM Pt seen & examined in the ICU. EVENTS: 2 units of platelets, HD done, remains unresponsive (holding sedation), apnea on SBT and on low dose pressors. Current Medications Albuterol Sulfate (Ventolin 0.083% Nebulizer Soln -) 1 amp NEB Q4H PRN PRN Reason: SHORT OF BREATH/WHEEZING Last Admin: 10/26/16 09:55 Dose: 1 amp Albuterol/Ipratropium (Duoneb -) 1 amp NEB TIDR MARIE Last Admin: 10/29/16 06:09 Dose: 1 amp Pantoprazole Sodium 80 mg/ (Sodium Chloride) 100 mls @ 10 mls/hr IVPB Q10H [facility] PRN Reason: 8 MG/HR Last Admin: 10/29/16 06:01 Dose: 10 mls/hr Phenylephrine HCl 20,000 mcg/ (Sodium Chloride) 250 mls @ 75 mls/hr IVPB ASDIR MARIE; 100 MCG/MIN PRN Reason: Protocol Last Admin: 10/29/16 04:45 Dose: 22.5 mls/hr Propofol (Diprivan -) 100 mls @ 1.331 mls/hr IVPB TITR [facility]; 5 MCG/KG/MIN PRN Reason: Protocol Last Admin: 10/28/16 22:05 Dose: 9.316 mls/hr Cefepime HCl 0.5 gm/ Dextrose 50 mls @ 100 mls/hr IVPB DAILY [facility] Levetiracetam (Keppra Injection -) 500 mg IVPB BID [facility] Last Admin: 10/28/16 21:43 Dose: 500 mg Midazolam HCl (Versed -) 2 mg IVPUSH Q3H5XD PRN PRN Reason: AGITATION Morphine Sulfate (Morphine Injection -) 2 mg IVPUSH Q4H PRN PRN Reason: PAIN Vital Signs Temp 97.4 F L 10/29/16 05:56 Pulse 102 H 10/29/16 07:28 Resp 16 10/29/16 07:28 BP 102/59 10/29/16 07:28 Pulse Ox 98 10/29/16 07:22 Intake & Output 10/28/16 10/29/16 10/29/16 18:59 06:59 18:59 Intake Total 670 1476 Balance 670 1476 Weight 42.666 kg Intake: IV 1026 Reza-Synephrine - 20,000 584 Mcg In Normal Saline - 248 ml @ 100 MCG/MIN 75 mls/hr IVPB ASDIR MARIE Rx# :[id number] Diprivan - 100 ml @ 5 MCG 215 /KG/MIN 1.331 mls/hr IVPB TITR MAR[facility] Rx#:[id number] protonix gtt 227 IVPB 470 100 Packed Cells 350 Platelets 200 Other: Voiding Method Diaper Diaper Bowel Movement Yes Weight Measurement Method Built in [facility] GEN: Elderly woman Intubated & sedated on mechanical ventilation Neuro: unresponsive HEENT: PERRL, R cataract, an-icteric, epistaxis, perioral bleeding PULM: R coarse, L basilar crackles CV: nml S1 S2, Irreg ABD: soft, non-tender EXT: + Pulses, WWPX4, LE Dialysis fistula CBC, BMP 10/29/16 06:00 10/29/16 06:00 MICRO 10/22/16 04:00 Nasopharyngeal Swab Respiratory Virus Panel - Final 10/22/16 00:30 Blood - Peripheral Venous Blood Culture - Final NO GROWTH AFTER 5 DAYS INCUBATION 10/22/16 00:30 Blood - Peripheral Venous Blood Culture - Final NO GROWTH AFTER 5 DAYS INCUBATION 10/23/16 08:00 Sputum - Endotrachea Suction/Ventilator Gram Stain - Final 10/23/16 08:00 Sputum - Endotrachea Suction/Ventilator Sputum Culture - Final Yeast Like Organism 10/23/16 07:30 Sputum - Endotrachea Suction/Ventilator Gram Stain - Final 10/23/16 07:30 Sputum - Endotrachea Suction/Ventilator Sputum Culture - Final Yeast Like Organism 10/22/16 04:00 Nasopharyngeal Swab Influenza Types A,B Antigen (JARRET) - Final 10/22/16 04:00 Nasopharyngeal Swab - Final CXR 2/3: ETT & L IJ TLC in good position, R side multilobar pna (My Read) ASSESSMENT: 1. ESRD on HD 2. s/p cardiopulmonary arrest 3. acute respiratory failure 4. HCAP 5. R LE DVT (Now S/P IVC) 6. S/P Seizure following the arrest 7. Right renal complex cyst > 5cms in diameter 8. Anemia 9. Thrombocytopenia 10. H/O HCV 11. active GIB 12. A-fib PLAN: -Cont mechanical ventilation - daily SBT (apnea today) -Hold sedation -Nebs -Normal Transfusion Thresholds -F/u Clxrs -Cont Vanc & Cefe (HCAP) -Pressors for MAP 65-75 - wean as able -Rate control as needed -HD per Renal -Cont Keppra -Hold off on AC in the setting of profound thrombocytopenia +/- DIC -Hold off on NGT or OGT given profound thrombocytopenia and bleeding -PPI (Resp Fail & Renal Fail) Overall prognosis is poor - goal of care discussions with , palliative extubation with withdrawal of pressors and renal replacement therapy would be best CONTACTS: Carlyle Bullock () [phone] Critically Ill 35min [place] Brown Pulm/Critical Care [employer]
[2016-10-29 09:04] LABS: ALLENS TEST POSITIVE; ART PUNCT SITE RIGHT BRACHIAL; ARTERIAL BLD GAS O2 SATURATION 99.4 % (90-98.9); ARTERIAL BLOOD GAS BASE EXCESS 3.5 meq/l (-2-2); ARTERIAL BLOOD GAS HCO3 26.4 meq/L (22-26); LPM/O2% 50%; PT. ON O2? YES; TYPE OF O2 MEC.VENT
[2016-10-29 09:05] LABS: MECH. VENT. ESPRIT; VT/PRESS PS+5
[2016-10-29] MEDS ORDERED: PT OWN MED DRAWER 7, Y5N ONE (09:18)
[2016-10-29] MEDS: CEFEPIME 0.5 GM in DEXTROSE 5%-WATER - 50 ML IVPB SCH (09:34)
[2016-10-29] MEDS: levETIRAcetam 500 MG/5 ML INJECTION VIAL IVPB SCH ×2 (09:34→22:32)
[2016-10-29 10:28] LABS: ANISOCYTOSIS 3+; HYPOCHROMIA 1+; MICROCYTOSIS 2+; POIKILOCYTOSIS 1+; TARGET CELLS 3+; TEAR DROP CELLS 1+
[2016-10-29] MEDS ORDERED: RACEPINEPHRINE IH SOL 2.25% 11.25 MG/0.5 ML VIAL NEB ONE (10:45)
[2016-10-29] MEDS ORDERED: DEXAMETHASONE SOD PHOSPHATE 10 MG/1 ML VIAL IVPUSH ONE (10:45)
--- NOTE | 2016-10-29 10:51 | PN ---
Progress Note, Physician History of Present Illness: Patient was extubated this morning. - Current Medication List Current Medications: Active Medications Albuterol Sulfate (Ventolin 0.083% Nebulizer Soln -) 1 amp NEB Q4H PRN PRN Reason: SHORT OF BREATH/WHEEZING Last Admin: 10/26/16 09:55 Dose: 1 amp Albuterol/Ipratropium (Duoneb -) 1 amp NEB TIDR MARIE Last Admin: 10/29/16 06:09 Dose: 1 amp Dexamethasone Sodium Phosphate (Decadron Injection -) 10 mg IVPUSH ONCE ONE Stop: 10/29/16 10:46 Last Admin: 10/29/16 10:35 Dose: 10 mg Epinephrine (S-2) 1 vial NEB ONCE ONE Stop: 10/29/16 10:46 Pantoprazole Sodium 80 mg/ (Sodium Chloride) 100 mls @ 10 mls/hr IVPB Q10H MARIE PRN Reason: 8 MG/HR Last Admin: 10/29/16 06:01 Dose: 10 mls/hr Phenylephrine HCl 20,000 mcg/ (Sodium Chloride) 250 mls @ 75 mls/hr IVPB ASDIR MARIE; 100 MCG/MIN PRN Reason: Protocol Last Titration: 10/29/16 10:02 Dose: 18 mcg/min Cefepime HCl 0.5 gm/ Dextrose 50 mls @ 100 mls/hr IVPB DAILY [facility]IE Last Admin: 10/29/16 09:34 Dose: 100 mls/hr Levetiracetam (Keppra Injection -) 500 mg IVPB BID MARIE Last Admin: 10/29/16 09:34 Dose: 500 mg Morphine Sulfate (Morphine Injection -) 2 mg IVPUSH Q4H PRN PRN Reason: PAIN - Objective Vital Signs: Vital Signs Temperature 97.4 F L 10/29/16 09:30 Pulse Rate 110 H 10/29/16 10:02 Respiratory Rate 25 H 10/29/16 09:30 Blood Pressure 108/69 10/29/16 10:02 O2 Sat by Pulse Oximetry (%) 98 10/29/16 09:44 HENT: Yes: Atraumatic, Normocephalic Cardiovascular: Yes: Tachycardia, Pulse Irregular. No: Murmur Respiratory: Yes: CTA Bilaterally Gastrointestinal: Yes: Normal Bowel Sounds, Soft. No: Distention, Tenderness Edema: No Labs: CBC, BMP 10/29/16 06:00 10/29/16 06:00 INR, PTT INR 1.50 (0.82-1.09) H 10/29/16 06:00 Fibrinogen 111.0 mg/dL (238-498) L 10/28/16 13:40 Assessment/Plan 80 yo female with HTN, ESRD -> HD, ovarian CA, who presented with abd pain -> cardiopulmonary arrest -> seizures -> intubated and was requiring norepinephrine. Patient was extubated and continues to remain off pressors. Etiology of cardiopulmonary arrest not clear. However, patient with right calf DVT per 10/22/16 Doppler -> raising question of PE (though reported rhythm was asystole). PEA may have degenerated into asystole. Trop I were indeterminate, 0.04 -> 0.10 -> 0.08 -> 0.06. 10/23/16 Echo: Mild global LV dysfunction, mild MR, mild to mod TR, PASP 30-40 mmHg, mild AR, mild to mod ND, small pericardial effusion (no tamponade) 10/24 CTA chest did not demonstrate aortic dissection or central pulmonary embolism. Dilate aorta and pulmonary arteries. Small bilateral pleural effusions. Repeat ECG on 10/25/16 Q waves in aVL and loss of R wave in precordium -> new compared to 10/22/16 ECG. Repeat ECG confirmed these findings. Stress test entertained, but deferred as she is not a good candidate for intervention. Patient developed probable GI bleed while on Eliquis with drop in Hgb. Eliquis was held. Underwent transfusion with PRBC on but went into respiratory failure -> intubated. Underwent IV filter yesterday. Repeat venous Doppler on 10/27/16 did not demonstrate previously reported right calf DVT on 10/22/16 study. Worsening anemia and thrombocytopenia. Currently on pressors. Extubated this morning. Patient also developed new onset atrial fibrillation, which is likely secondary to recent events. Currently remains in atrial fibrillation, with HR 100s-110s, which is acceptable current clinical status. RECS: Patient not candidate for further anticoagulation. No further cardiac work-up at this time. May given metoprolol tartrate 5 mg IV q6h prn HR > 130s consistently. Would recommend discussion regarding patient's code status with family. Vent management per critical care/pulmonary. Further management as per primary team/neuro/ID. Will follow. Call with questions.
--- NOTE | 2016-10-29 11:05 | PN ---
Progress Note, Physician History of Present Illness: Extubated Slightly tachypneic No complaints offered Afebrile, normal WBC Remains severely thrombocytopenic Nurse reports copious amts of vaginal discharge - Current Medication List Current Medications: Active Medications Albuterol Sulfate (Ventolin 0.083% Nebulizer Soln -) 1 amp NEB Q4H PRN PRN Reason: SHORT OF BREATH/WHEEZING Last Admin: 10/26/16 09:55 Dose: 1 amp Albuterol/Ipratropium (Duoneb -) 1 amp NEB TIDR MARIE Last Admin: 10/29/16 06:09 Dose: 1 amp Pantoprazole Sodium 80 mg/ (Sodium Chloride) 100 mls @ 10 mls/hr IVPB Q10H MARIE PRN Reason: 8 MG/HR Last Admin: 10/29/16 06:01 Dose: 10 mls/hr Phenylephrine HCl 20,000 mcg/ (Sodium Chloride) 250 mls @ 75 mls/hr IVPB ASDIR MARIE; 100 MCG/MIN PRN Reason: Protocol Last Titration: 10/29/16 10:02 Dose: 18 mcg/min Cefepime HCl 0.5 gm/ Dextrose 50 mls @ 100 mls/hr IVPB DAILY MARIE Last Admin: 10/29/16 09:34 Dose: 100 mls/hr Levetiracetam (Keppra Injection -) 500 mg IVPB BID MARIE Last Admin: 10/29/16 09:34 Dose: 500 mg Morphine Sulfate (Morphine Injection -) 2 mg IVPUSH Q4H PRN PRN Reason: PAIN - Objective Vital Signs: Vital Signs Temperature 97.4 F L 10/29/16 09:30 Pulse Rate 110 H 10/29/16 10:02 Respiratory Rate 25 H 10/29/16 09:30 Blood Pressure 108/69 10/29/16 10:02 O2 Sat by Pulse Oximetry (%) 98 10/29/16 09:44 Constitutional: Yes: No Distress, Cachectic Eyes: Yes: Conjunctiva Clear Cardiovascular: Yes: Regular Rate and Rhythm, Tachycardia, S1, S2 Respiratory: Yes: Diminished Gastrointestinal: Yes: Normal Bowel Sounds, Soft. No: Tenderness Edema: No Labs: CBC, BMP 10/29/16 06:00 10/29/16 06:00 INR, PTT INR 1.50 (0.82-1.09) H 10/29/16 06:00 Fibrinogen 111.0 mg/dL (238-498) L 10/28/16 13:40 Assessment/Plan S/P cardiopulmonary arrest/ respiratory failure s/p extubation Possible sepsis/ DIC ESRD Cirrhosis Await c/s Empiric cefepime/ vancomycin given Will treat for possible vulvovaginal tom Prognosis guarded
[2016-10-29] MEDS: FLUCONAZOLE 100 MG/D5W 50 ML IVPB SCH (11:40)
--- NOTE | 2016-10-29 11:53 | PN ---
Progress Note, Physician Chief Complaint: AWAKE CONFUSED - Current Medication List Current Medications: Active Medications Albuterol Sulfate (Ventolin 0.083% Nebulizer Soln -) 1 amp NEB Q4H PRN PRN Reason: SHORT OF BREATH/WHEEZING Last Admin: 10/26/16 09:55 Dose: 1 amp Albuterol/Ipratropium (Duoneb -) 1 amp NEB TIDR MARIE Last Admin: 10/29/16 06:09 Dose: 1 amp Pantoprazole Sodium 80 mg/ (Sodium Chloride) 100 mls @ 10 mls/hr IVPB Q10H MARIE PRN Reason: 8 MG/HR Last Admin: 10/29/16 06:01 Dose: 10 mls/hr Phenylephrine HCl 20,000 mcg/ (Sodium Chloride) 250 mls @ 75 mls/hr IVPB ASDIR MARIE; 100 MCG/MIN PRN Reason: Protocol Last Titration: 10/29/16 11:19 Dose: 15 mcg/min Cefepime HCl 0.5 gm/ Dextrose 50 mls @ 100 mls/hr IVPB DAILY [facility] Last Admin: 10/29/16 09:34 Dose: 100 mls/hr Fluconazole (Diflucan 100 Mg/D5w Premixed Ivpb -) 50 mls @ 50 mls/hr IVPB Q2D@ 1000 [facility] Last Admin: 10/29/16 11:40 Dose: 50 mls/hr Levetiracetam (Keppra Injection -) 500 mg IVPB BID [facility] Last Admin: 10/29/16 09:34 Dose: 500 mg Morphine Sulfate (Morphine Injection -) 2 mg IVPUSH Q4H PRN PRN Reason: PAIN - Objective Vital Signs: Vital Signs Temperature 97.4 F L 10/29/16 09:30 Pulse Rate 106 H 10/29/16 11:19 Respiratory Rate 24 10/29/16 11:00 Blood Pressure 101/62 10/29/16 11:19 O2 Sat by Pulse Oximetry (%) 96 10/29/16 11:41 HENT: Yes: Other (INTUBATED/VENT SUPPORT) Cardiovascular: Yes: Regular Rate and Rhythm, S1, S2 Respiratory: Yes: Diminished Gastrointestinal: Yes: Normal Bowel Sounds, Soft Labs: CBC, BMP 10/29/16 06:00 10/29/16 06:00 INR, PTT INR 1.50 (0.82-1.09) H 10/29/16 06:00 Fibrinogen 111.0 mg/dL (238-498) L 10/28/16 13:40 Problem List - Problems (1) Cardiopulmonary arrest Code(s): I46.9 - CARDIAC ARREST, CAUSE UNSPECIFIED (2) DVT (deep venous thrombosis) Code(s): I82.409 - ACUTE EMBOLISM AND THOMBOS UNSP DEEP VN UNSP LOWER EXTREMITY (3) ESRD (end stage renal disease) on dialysis Code(s): N18.6 - END STAGE RENAL DISEASE Z99.2 - DEPENDENCE ON RENAL DIALYSIS (4) Pneumonia Code(s): J18.9 - PNEUMONIA, UNSPECIFIED ORGANISM (5) Respiratory failure Code(s): J96.90 - RESPIRATORY FAILURE, UNSP, UNSP W HYPOXIA OR HYPERCAPNIA Assessment/Plan (1) Cardiopulmonary arrest Code(s): I46.9 - CARDIAC ARREST, CAUSE UNSPECIFIED (2) DVT (deep venous thrombosis) Code(s): I82.409 - ACUTE EMBOLISM AND THOMBOS UNSP DEEP VN UNSP LOWER EXTREMITY (3) ESRD (end stage renal disease) on dialysis Code(s): N18.6 - END STAGE RENAL DISEASE Z99.2 - DEPENDENCE ON RENAL DIALYSIS (4) HCV (hepatitis C virus) Code(s): B19.20 - UNSPECIFIED VIRAL HEPATITIS C WITHOUT HEPATIC COMA (5) Metabolic encephalopathy Code(s): G93.41 - METABOLIC ENCEPHALOPATHY (6) Pneumonia Code(s): J18.9 - PNEUMONIA, UNSPECIFIED ORGANISM (7) Respiratory failure Code(s): J96.90 - RESPIRATORY FAILURE, UNSP, UNSP W HYPOXIA OR HYPERCAPNIA Assessment/Plan CTA NEGATIVE FOR PE OR DISSECTION MODIFIED BARIUM SHOWS HOLDING PHASE ON CHOPPED DIET WITH DYSPHAGIA PRECAUTIONS - > NOW INTUBATED NOT IMPROVING RENAL FUNCTION RENAL ON CASE PT EVAL AND BEDSIDE ROM IV ABX PER ID WILL NEED STRESS TEST AND CARDIAC CATH OUTPATIENT -> ? ANEMIA/FOBT +ria/LOW PLT/HCV -> HEME & GI CONSULTED PASTOR ROSS
[2016-10-29] MEDS ORDERED: RAPID SEQUENCE INTUBATION KIT NR ONE (12:18)
--- NOTE | 2016-10-29 12:51 | PROC ---
Intubation - Intubation Reason for Intubation: Respiratory Failure, Ventilatory Failure Time of Intubation: 12:49 Intubation Method: orotracheal Blade used: Mac Tube Size (cm): 7.0 Tube position @ lip (cm): 20 Tube position confirmed by: Direct visualization, CO2 detector, Breath sounds Breath Sounds after Intubation: equal Post Intubation Xray: Yes Remarks: Pt was extubated earlier today and experienced post-extubation stridor despite having an adequate cuff leak prior to extubation. She failed Race-epi nebs and steroids and needed to be re-intubated. Smooth induction with Fent 50mg, Propofol 50mg and Handy 30mg. DL x1 with MAC 3, G1v, 7.0 ETT to 20cm. CXR ordered.
[2016-10-29] MEDS ORDERED: ROCURONIUM BROMIDE 50 MG/5 ML VIAL IV ONE (12:52)
[2016-10-29] MEDS: PROPOFOL 100 ML IVPB SCH ×2 (13:11→17:45)
--- NOTE | 2016-10-29 13:32 | PN ---
GI Progress Note Subjective: GI: CT scan revealed no retroperitoneal hemorrhage. Stool was green overnight. - Objective Vital Signs: Vital Signs Temperature 97.4 F L 10/29/16 09:30 Pulse Rate 98 H 10/29/16 13:10 Respiratory Rate 16 10/29/16 12:54 Blood Pressure 110/72 10/29/16 13:10 O2 Sat by Pulse Oximetry (%) 96 10/29/16 12:54 CBC, BMP 10/29/16 06:00 10/29/16 06:00 CBC,CMP WBC 7.1 K/mm3 (4.0-10.0) 10/29/16 06:00 RBC 2.97 M/mm3 (3.60-5.2) L D 10/29/16 06:00 Hgb 9.3 GM/dL (10.7-15.3) L D 10/29/16 06:00 Hct 27.5 % (32.4-45.2) L D 10/29/16 06:00 MCV 92.9 fl (80-96) 10/29/16 06:00 MCHC 33.9 g/dl (32.0-36.0) 10/29/16 06:00 RDW 23.4 % (11.6-15.6) H D 10/29/16 06:00 Plt Count 24 K/MM3 (134-434) L* 10/29/16 06:00 MPV 11.5 fl (7.5-11.1) H 10/29/16 06:00 Neutrophils % 75.7 % (42.8-82.8) 10/29/16 06:00 Lymphocytes % 14.8 % (8-40) 10/29/16 06:00 Monocytes % 7.9 % (3.8-10.2) 10/29/16 06:00 Eosinophils % 0.7 % (0-4.5) D 10/29/16 06:00 Basophils % 0.9 % (0-2.0) 10/29/16 06:00 Toxic Granulation Few 10/22/16 00:30 Platelet Estimate Decreased (NORMAL) 10/22/16 04:45 Platelet Comment No clumping noted 10/22/16 04:45 Platelet Comment No clotting detected 10/22/16 04:45 Polychromasia 1+ 10/22/16 04:45 Hypochromic-Microcytic 1+ 10/29/16 06:00 Poikilocytosis 1+ 10/29/16 06:00 Anisocytosis 3+ 10/29/16 06:00 Microcytosis 2+ 10/29/16 06:00 Macrocytosis 2+ 10/29/16 06:00 Target Cells 3+ 10/29/16 06:00 Tear Drop Cells 1+ 10/29/16 06:00 Fragmented RBCs 1+ 10/22/16 04:45 Morphology Comment Slide scanned 10/29/16 06:00 Retic Count 0.72 % (0.5-1.5) 10/29/16 06:00 Sodium 144 mmol/L (136-145) 10/29/16 06:00 Potassium 3.4 mmol/L (3.5-5.1) L 10/29/16 06:00 Chloride 106 mmol/L (98-107) 10/29/16 06:00 Carbon Dioxide 26 mmol/L (21-32) 10/29/16 06:00 Anion Gap 12 (8-16) 10/29/16 06:00 BUN 11 mg/dL (7-18) 10/29/16 06:00 Creatinine 1.9 mg/dL (0.55-1.02) H 10/29/16 06:00 Creat Clearance w eGFR 25.50 (>60) 10/29/16 06:00 POC Glucometer 111.03042 UNITS (()) 10/22/16 03:10 Random Glucose 80 mg/dL (74-106) 10/29/16 06:00 Lactic Acid 1.449 mmol/L (0.4-2.0) 10/28/16 13:40 Calcium 7.8 mg/dL (8.5-10.1) L 10/29/16 06:00 Phosphorus 1.7 mg/dL (2.5-4.9) L D 10/26/16 05:20 Magnesium 1.8 mg/dL (1.8-2.4) 10/26/16 05:20 Total Bilirubin 1.6 mg/dL (0.2-1.0) H D 10/29/16 06:00 Direct Bilirubin 0.4 mg/dL (0.0-0.2) H 10/22/16 04:45 AST 20 U/L (15-37) 10/29/16 06:00 ALT 8 U/L (12-78) L 10/29/16 06:00 Alkaline Phosphatase 60 U/L (45-117) D 10/29/16 06:00 Ammonia 38.53 umol/L (11-32) H 10/22/16 04:45 LD Total 196 U/L (84-246) 10/29/16 06:00 Creatine Kinase 19 IU/L (26-192) L 10/23/16 05:15 Troponin I 0.06 ng/ml (0.00-0.05) H 10/23/16 05:15 C-Reactive Protein 10.2 MG/DL (0.00-0.3) H D 10/29/16 06:00 Total Protein 6.2 g/dl (6.4-8.2) L 10/29/16 06:00 Albumin 2.1 g/dl (3.4-5.0) L 10/29/16 06:00 Total Amylase 28 U/L (25-115) 10/22/16 04:45 Lipase 139 U/L (73-393) 10/22/16 04:45 Constitutional: Other (sedated) ...Auscultate: Yes: Hypoactive Bowel Sounds ...Palpate: Yes: Soft, Other (nontender) Labs: CBC, BMP 10/29/16 06:00 10/29/16 06:00 INR, PTT INR 1.50 (0.82-1.09) H 10/29/16 06:00 Fibrinogen 111.0 mg/dL (238-498) L 10/28/16 13:40 Laboratory Tests 10/28/16 10/29/16 10/29/16 05:15 06:00 06:00 WBC 7.3 Hgb 7.6 L D 9.3 L D Hct 23.0 L D Plt Count 29 L* 24 L* Total Bilirubin 1.6 H D C-Reactive Protein 10.2 H D Albumin 2.1 L Assessment/Plan GI bleeding appears to have abated. Liver function remarkably stable. Hesitant to insert NG for feedings given thrombocytopenia. Dr Carr will return in AM.
--- NOTE | 2016-10-29 15:26 | PN ---
Progress Note, Physician History of Present Illness: Pt seen and examined at bedside. She was extubated then intubated. She tolerated HD yesterday. - Current Medication List Current Medications: Active Medications Albuterol Sulfate (Ventolin 0.083% Nebulizer Soln -) 1 amp NEB Q4H PRN PRN Reason: SHORT OF BREATH/WHEEZING Last Admin: 10/26/16 09:55 Dose: 1 amp Albuterol/Ipratropium (Duoneb -) 1 amp NEB TIDR MARIE Last Admin: 10/29/16 14:35 Dose: 1 amp Pantoprazole Sodium 80 mg/ (Sodium Chloride) 100 mls @ 10 mls/hr IVPB Q10H MARIE PRN Reason: 8 MG/HR Last Admin: 10/29/16 14:46 Dose: 10 mls/hr Phenylephrine HCl 20,000 mcg/ (Sodium Chloride) 250 mls @ 75 mls/hr IVPB ASDIR MARIE; 100 MCG/MIN PRN Reason: Protocol Last Titration: 10/29/16 14:17 Dose: 50 mcg/min Cefepime HCl 0.5 gm/ Dextrose 50 mls @ 100 mls/hr IVPB DAILY [facility] Last Admin: 10/29/16 09:34 Dose: 100 mls/hr Fluconazole (Diflucan 100 Mg/D5w Premixed Ivpb -) 50 mls @ 50 mls/hr IVPB Q2D@ 1000 [facility] Last Admin: 10/29/16 11:40 Dose: 50 mls/hr Propofol (Diprivan -) 100 mls @ 1.28 mls/hr IVPB TITR MARIE; 5 MCG/KG/MIN PRN Reason: Protocol Last Admin: 10/29/16 13:11 Dose: 7.68 mls/hr Levetiracetam (Keppra Injection -) 500 mg IVPB BID MARIE Last Admin: 10/29/16 09:34 Dose: 500 mg Morphine Sulfate (Morphine Injection -) 2 mg IVPUSH Q4H PRN PRN Reason: PAIN - Objective Vital Signs: Vital Signs Temperature 97.4 F L 10/29/16 14:00 Pulse Rate 98 H 10/29/16 14:17 Respiratory Rate 16 10/29/16 14:29 Blood Pressure 114/68 10/29/16 14:17 O2 Sat by Pulse Oximetry (%) 96 10/29/16 12:54 Constitutional: Yes: Calm Eyes: Yes: Conjunctiva Clear HENT: Yes: Atraumatic Cardiovascular: Yes: S1, S2 Respiratory: Yes: Mechanically Ventilated Gastrointestinal: Yes: Soft Genitourinary: Yes: Incontinence Musculoskeletal: Yes: Muscle Weakness Edema: Yes Edema: LLE: Trace, RLE: Trace Neurological: Yes: Lethargy, Other (sedated) Labs: CBC, BMP 10/29/16 06:00 10/29/16 06:00 INR, PTT INR 1.50 (0.82-1.09) H 10/29/16 06:00 Fibrinogen 111.0 mg/dL (238-498) L 10/28/16 13:40 - ....Imaging Chest X-ray: Report Reviewed Problem List - Problems (1) Cardiopulmonary arrest Code(s): I46.9 - CARDIAC ARREST, CAUSE UNSPECIFIED (2) DVT (deep venous thrombosis) Code(s): I82.409 - ACUTE EMBOLISM AND THOMBOS UNSP DEEP VN UNSP LOWER EXTREMITY (3) ESRD (end stage renal disease) on dialysis Code(s): N18.6 - END STAGE RENAL DISEASE Z99.2 - DEPENDENCE ON RENAL DIALYSIS (4) HCV (hepatitis C virus) Code(s): B19.20 - UNSPECIFIED VIRAL HEPATITIS C WITHOUT HEPATIC COMA (5) Respiratory failure Code(s): J96.90 - RESPIRATORY FAILURE, UNSP, UNSP W HYPOXIA OR HYPERCAPNIA Assessment/Plan Current Medications Generic Name Dose Route Start Last Admin Trade Name Freq PRN Reason Stop Dose Admin Albuterol Sulfate 1 amp 10/25/16 13:58 10/26/16 09:55 Ventolin 0.083% Nebulizer Soln - NEB 1 amp Q4H PRN Administration SHORT OF BREATH/WHEEZING Albuterol/Ipratropium 1 amp 10/25/16 14:00 10/29/16 14:35 Duoneb - NEB 1 amp TIDR MARIE Administration Pantoprazole Sodium 80 mg/ 100 mls @ 10 mls/hr 10/26/16 17:00 10/29/16 14:46 Sodium Chloride IVPB 10 mls/hr Q10H MARIE Administration 8 MG/HR Phenylephrine HCl 20,000 mcg/ 250 mls @ 75 mls/hr 10/27/16 04:45 10/29/16 14:17 Sodium Chloride IVPB 50 mcg/min ASDIR MARIE Titration Protocol 100 MCG/MIN Cefepime HCl 0.5 gm/ Dextrose 50 mls @ 100 mls/hr 10/29/16 10:00 10/29/16 09:34 IVPB 100 mls/hr DAILY MARIE Administration Fluconazole 50 mls @ 50 mls/hr 10/29/16 12:00 10/29/16 11:40 Diflucan 100 Mg/D5w Premixed Ivpb - IVPB 50 mls/hr Q2D@1000 MARIE Administration Propofol 100 mls @ 1.28 mls/hr 10/29/16 13:00 10/29/16 13:11 Diprivan - IVPB 7.68 mls/hr TITR MARIE Administration Protocol 5 MCG/KG/MIN Levetiracetam 500 mg 10/25/16 22:00 10/29/16 09:34 Keppra Injection - IVPB 500 mg BID MARIE Administration Morphine Sulfate 2 mg 10/25/16 13:58 Morphine Injection - IVPUSH Q4H PRN PAIN Impression 1. ESRD 2. s/p cardiopulmonary arrest 3. acute respiratory failure 4. Pneumonia 5. DVT of right leg 6. S/P Seizure following the arrest 7. Right renal complex cyst > 5cms in diameter 8. Anemia 9. Thrombocytopenia 10. H/O HCV 11. active GI bleed Plan - pt tolerated HD yesterday - pt is now re-intubated - will evaluate for HD in am - discussed with GI, hg is stable - monitor blood pressure - discussed with ICU team today - monitor pulse ox - monitor Hg Dr Espino
--- NOTE | 2016-10-29 17:34 | PN ---
Progress Note, Physician Chief Complaint: lethargy , altered mental status, extubated, on dialysis. - Current Medication List Current Medications: Active Medications Albuterol Sulfate (Ventolin 0.083% Nebulizer Soln -) 1 amp NEB Q4H PRN PRN Reason: SHORT OF BREATH/WHEEZING Last Admin: 10/26/16 09:55 Dose: 1 amp Albuterol/Ipratropium (Duoneb -) 1 amp NEB TIDR MARIE Last Admin: 10/29/16 14:35 Dose: 1 amp Pantoprazole Sodium 80 mg/ (Sodium Chloride) 100 mls @ 10 mls/hr IVPB Q10H MARIE PRN Reason: 8 MG/HR Last Admin: 10/29/16 14:46 Dose: 10 mls/hr Phenylephrine HCl 20,000 mcg/ (Sodium Chloride) 250 mls @ 75 mls/hr IVPB ASDIR MARIE; 100 MCG/MIN PRN Reason: Protocol Last Titration: 10/29/16 17:06 Dose: 35 mcg/min Cefepime HCl 0.5 gm/ Dextrose 50 mls @ 100 mls/hr IVPB DAILY [facility] Last Admin: 10/29/16 09:34 Dose: 100 mls/hr Fluconazole (Diflucan 100 Mg/D5w Premixed Ivpb -) 50 mls @ 50 mls/hr IVPB Q2D@ 1000 [facility] Last Admin: 10/29/16 11:40 Dose: 50 mls/hr Propofol (Diprivan -) 100 mls @ 1.28 mls/hr IVPB TITR MARIE; 5 MCG/KG/MIN PRN Reason: Protocol Last Admin: 10/29/16 13:11 Dose: 7.68 mls/hr Levetiracetam (Keppra Injection -) 500 mg IVPB BID [facility] Last Admin: 10/29/16 09:34 Dose: 500 mg Morphine Sulfate (Morphine Injection -) 2 mg IVPUSH Q4H PRN PRN Reason: PAIN - Objective Vital Signs: Vital Signs Temperature 97.4 F L 10/29/16 14:00 Pulse Rate 106 H 10/29/16 17:06 Respiratory Rate 16 10/29/16 17:03 Blood Pressure 92/64 10/29/16 17:06 O2 Sat by Pulse Oximetry (%) 96 10/29/16 12:54 Constitutional: Yes: Moderate Distress Eyes: Yes: Conjunctiva Clear, EOM Intact HENT: Yes: Atraumatic, Normocephalic Neck: Yes: Supple, Trachea Midline Cardiovascular: Yes: Regular Rate and Rhythm, Tachycardia, S1, S2 Respiratory: Yes: On Venti-Mask, Tachypnea, Wheezes Gastrointestinal: Yes: Normal Bowel Sounds, Soft Genitourinary: Yes: WNL Breast(s): Yes: WNL Musculoskeletal: Yes: Muscle Weakness Extremities: Yes: WNL Edema: No Peripheral Pulses WNL: Yes Neurological: Yes: Babinski negative, Cran Nerves II-XII Intact, Lethargy, Weakness ...Motor Strength: WNL (generalized weakness 2/5 UE and LE , withdraws at pain all four extremities) Psychiatric: Yes: Other (drowsy, respiratory distress on venti mask) Labs: CBC, BMP 10/29/16 06:00 10/29/16 06:00 INR, PTT INR 1.50 (0.82-1.09) H 10/29/16 06:00 Fibrinogen 111.0 mg/dL (238-498) L 10/28/16 13:40 - ....Imaging X-ray: Report Reviewed, Image Reviewed Problem List - Problems (1) Metabolic encephalopathy Code(s): G93.41 - METABOLIC ENCEPHALOPATHY (2) Anoxic brain damage Code(s): G93.1 - ANOXIC BRAIN DAMAGE, NOT ELSEWHERE CLASSIFIED (3) Pneumonia Code(s): J18.9 - PNEUMONIA, UNSPECIFIED ORGANISM Assessment/Plan 80 year old woman with history of hepatitis C, GI bleed, hypertension, ESRD on HD, presented with abdominal discomfort, was noted to have sudden cardiac arrest of unclear etiology. As per has been slowly declining in terms of health since June and has been in and out of hospitals and nursing facilities since. In Ed chest xray revealed right lower lobe consolidation, and patient was initiated on therapy for HCAP. Was noted to be unresponsive and pulseless. ACLS provided for ten minutes. The patient was extubated again this morning and is generally weak, in respiratory distress. Patient was intubated again four days agao and extubated this morning again. Exam : extubated,in respiratory distress, nonverbal. Impression: generalized weakness, respiratory insuficiency, metabolic encephalopathy. Plan: - treatment and management respiratory per ICU team. - PT/OT/ST - evaluation speech and swallow when stabel. - consider limiting use opioids- morphine. Critical Care time spent in ICU 35 min. Thank you for this consult.
[2016-10-29] MEDS ORDERED: PROPOFOL 100 ML ONE (20:33)
[2016-10-29] MEDS ORDERED: NOREPINEPHRINE BITARTRATE 16,000 MCG in DEXTROSE 5%-WATER - 484 ML IV SCH (21:15)
[2016-10-29] MEDS ORDERED: NOREPINEPHRINE BITARTRATE 4 MG/4 ML ML IV ONE (21:16)
[2016-10-29] MEDS: FENTANYL INJECTION 500 MCG in DEXTROSE 5%-WATER - 90 ML IJ SCH (22:16)
[2016-10-30] MEDS: PANTOPRAZOLE SODIUM 80 MG in SODIUM CHLORIDE 100 ML IVPB SCH ×4 (01:00→21:03)
[2016-10-30] MEDS: PHENYLEPHRINE HCL 20,000 MCG in SODIUM CHLORIDE 248 ML IVPB SCH (06:12)
[2016-10-30 06:27] LABS: ALBUMIN 1.9 g/dl (3.4-5.0); BILIRUBIN,TOTAL 1.1 mg/dL (0.2-1.0); CALCIUM 7.5 mg/dL (8.5-10.1); CREATININE 2.4 mg/dL (0.55-1.02); PHOSPHOROUS 2.3 mg/dL (2.5-4.9); TOT PROT 6.3 g/dl (6.4-8.2)
[2016-10-30 06:28] LABS: MCH 31.7 pg (25.7-33.7); MCHC 34.2 g/dl (32.0-36.0); MEAN CELL VOLUME 92.8 fl (80-96); MEAN PLT VOLUME 13.2 fl (7.5-11.1); NEUTROPHILS 80.2 % (42.8-82.8); RDW 23.8 % (11.6-15.6); WHITE BLOOD COUNT 6.9 K/mm3 (4.0-10.0)
[2016-10-30] MEDS: ALBUTEROL SO4 2.5/IPRATROPIUM 0.5 INH SOL 3 ML VIAL.NEB. NEB SCH ×2 (06:30→13:45)
[2016-10-30 07:00] LABS: BASOPHIL 0.3 % (0-2.0)
[2016-10-30 07:35] LABS: ARTERIAL BLD GAS O2 SATURATION 99.3 % (90-98.9); ARTERIAL BLOOD GAS BASE EXCESS 1.3 meq/l (-2-2); ARTERIAL BLOOD GAS HCO3 23.6 meq/L (22-26)
[2016-10-30 07:36] LABS: ALLENS TEST POSITIVE; ART PUNCT SITE RIGHT RADIAL; ARTERIAL BLOOD GAS pH 7.51 (7.35-7.45); LPM/O2% 35; MECH. VENT. YES; PT. ON O2? YES; TYPE OF O2 VENT; VENT RATE 15; VT/PRESS 350
[2016-10-30 07:49] LABS: PLATELET COUNT 34 K/MM3 (134-434)
[2016-10-30 07:50] LABS: ANISOCYTOSIS 3+; HYPOCHROMIA 2+; MICROCYTOSIS 1+; PLATELET COMMENT2 NO CLOTTING DETECTED; PLATELET ESTIMATE MARKEDLY DECREASED (NORMAL); POIKILOCYTOSIS 3+; POLYCHROMASIA 2+
[2016-10-30 07:51] LABS: FRAGMENTED CELL 1+; SPHEROCYTE 1+
--- NOTE | 2016-10-30 07:58 | PN ---
Progress Note, Physician Chief Complaint: ID Reintubated for the 3rd time last night Had been on Cefepime day 2 for ? sepsis syndrome On Pressors - Current Medication List Current Medications: Active Medications Albuterol Sulfate (Ventolin 0.083% Nebulizer Soln -) 1 amp NEB Q4H PRN PRN Reason: SHORT OF BREATH/WHEEZING Last Admin: 10/26/16 09:55 Dose: 1 amp Albuterol/Ipratropium (Duoneb -) 1 amp NEB TIDR MARIE Last Admin: 10/30/16 06:30 Dose: 1 amp Pantoprazole Sodium 80 mg/ (Sodium Chloride) 100 mls @ 10 mls/hr IVPB Q10H MARIE PRN Reason: 8 MG/HR Last Admin: 10/30/16 01:00 Dose: 10 mls/hr Cefepime HCl 0.5 gm/ Dextrose 50 mls @ 100 mls/hr IVPB DAILY MARIE Last Admin: 10/29/16 09:34 Dose: 100 mls/hr Fluconazole (Diflucan 100 Mg/D5w Premixed Ivpb -) 50 mls @ 50 mls/hr IVPB Q2D@ 1000 MARIE Last Admin: 10/29/16 11:40 Dose: 50 mls/hr Propofol (Diprivan -) 100 mls @ 1.28 mls/hr IVPB TITR MARIE; 5 MCG/KG/MIN PRN Reason: Protocol Last Titration: 10/30/16 01:00 Dose: 5 mcg/kg/min Norepinephrine Bitartrate 16, (000 mcg/ Dextrose) 500 mls @ 9.37 mls/hr IV TITR MARIE; 5 MCG/MIN PRN Reason: Protocol Last Admin: 10/29/16 22:14 Dose: 9.37 mls/hr Fentanyl 500 mcg/ Dextrose 100 mls @ 5 mls/hr IJ TITR MARIE PRN Reason: 25 MCG/HR Last Admin: 10/29/16 22:16 Dose: 5 mls/hr Levetiracetam (Keppra Injection -) 500 mg IVPB BID MARIE Last Admin: 10/29/16 22:32 Dose: 500 mg Morphine Sulfate (Morphine Injection -) 2 mg IVPUSH Q4H PRN PRN Reason: PAIN - Objective Vital Signs: Vital Signs Temperature 97.8 F 10/30/16 02:00 Pulse Rate 76 10/30/16 02:00 Respiratory Rate 15 10/30/16 07:41 Blood Pressure 111/60 10/30/16 02:00 O2 Sat by Pulse Oximetry (%) 100 10/29/16 22:30 Constitutional: Yes: Other (Intubated) Neck: Yes: Other (left central line) Cardiovascular: Yes: Regular Rate and Rhythm, S1, S2 Respiratory: Yes: WNL, Regular, CTA Bilaterally, Rhonchi Gastrointestinal: Yes: WNL, Normal Bowel Sounds, Soft. No: Tenderness Edema: No Labs: CBC, BMP 10/30/16 05:30 10/30/16 05:30 INR, PTT INR 1.50 (0.82-1.09) H 10/29/16 06:00 Fibrinogen 111.0 mg/dL (238-498) L 10/28/16 13:40 Problem List - Problems (1) Cardiopulmonary arrest Code(s): I46.9 - CARDIAC ARREST, CAUSE UNSPECIFIED (2) ESRD (end stage renal disease) on dialysis Code(s): N18.6 - END STAGE RENAL DISEASE Z99.2 - DEPENDENCE ON RENAL DIALYSIS (3) Pneumonia Code(s): J18.9 - PNEUMONIA, UNSPECIFIED ORGANISM (4) Respiratory failure Code(s): J96.90 - RESPIRATORY FAILURE, UNSP, UNSP W HYPOXIA OR HYPERCAPNIA Assessment/Plan Microbiology 10/27/16 17:00 Sputum - Endotrachea Suction/Ventilator Gram Stain - Final 10/27/16 16:00 Blood - Peripheral Venous Blood Culture - Preliminary NO GROWTH OBTAINED AFTER 48 HOURS, INCUBATION TO CONTINUE FOR 3 DAYS. 10/27/16 13:35 Blood - Peripheral Venous Blood Culture - Preliminary NO GROWTH OBTAINED AFTER 48 HOURS, INCUBATION TO CONTINUE FOR 3 DAYS. Laboratory Tests 10/22/16 10/28/16 10:00 13:40 Lactic Acid 1.449 HCV Quantitation 228199 HCV Liver Fibrosis Test 5.536 Assessment Reintubation Respiratory failure Sepsis was considered possible on pressors day 2 Cefepime Hepatitis C ? cirrhosis Coagulaopathy with GI bleed mouth bleeding ESRD Cardiopulmonary arrest originally Plan Chest xray without clear pneumonia Sputum pending Will evaluate stopping antibiotics in 24 hours Helen ZHAO
[2016-10-30] MEDS ORDERED: PT OWN MED DRAWER 7, Y5N ONE (10:52)
[2016-10-30] MEDS: levETIRAcetam 500 MG/5 ML INJECTION VIAL IVPB SCH ×2 (10:52→21:16)
[2016-10-30] MEDS: CEFEPIME 0.5 GM in DEXTROSE 5%-WATER - 50 ML IVPB SCH (10:52)
--- NOTE | 2016-10-30 11:00 | PN ---
Progress Note, Physician History of Present Illness: Patient was extubated yesterday morning but was intubated again yesterday afternoon. Currently on Levophed gtt. - Current Medication List Current Medications: Active Medications Albuterol Sulfate (Ventolin 0.083% Nebulizer Soln -) 1 amp NEB Q4H PRN PRN Reason: SHORT OF BREATH/WHEEZING Last Admin: 10/26/16 09:55 Dose: 1 amp Albuterol/Ipratropium (Duoneb -) 1 amp NEB TIDR MARIE Last Admin: 10/30/16 06:30 Dose: 1 amp Pantoprazole Sodium 80 mg/ (Sodium Chloride) 100 mls @ 10 mls/hr IVPB Q10H MARIE PRN Reason: 8 MG/HR Last Admin: 10/30/16 10:50 Dose: 10 mls/hr Cefepime HCl 0.5 gm/ Dextrose 50 mls @ 100 mls/hr IVPB DAILY MARIE Last Admin: 10/30/16 10:52 Dose: 100 mls/hr Fluconazole (Diflucan 100 Mg/D5w Premixed Ivpb -) 50 mls @ 50 mls/hr IVPB Q2D@ 1000 MARIE Last Admin: 10/29/16 11:40 Dose: 50 mls/hr Propofol (Diprivan -) 100 mls @ 1.28 mls/hr IVPB TITR MARIE; 5 MCG/KG/MIN PRN Reason: Protocol Last Titration: 10/30/16 01:00 Dose: 5 mcg/kg/min Norepinephrine Bitartrate 16, (000 mcg/ Dextrose) 500 mls @ 9.37 mls/hr IV TITR MARIE; 5 MCG/MIN PRN Reason: Protocol Last Admin: 10/29/16 22:14 Dose: 9.37 mls/hr Fentanyl 500 mcg/ Dextrose 100 mls @ 5 mls/hr IJ TITR MARIE PRN Reason: 25 MCG/HR Last Admin: 10/29/16 22:16 Dose: 5 mls/hr Levetiracetam (Keppra Injection -) 500 mg IVPB BID MARIE Last Admin: 10/30/16 10:52 Dose: 500 mg - Objective Vital Signs: Vital Signs Temperature 97.6 F 10/30/16 06:00 Pulse Rate 108 H 10/30/16 07:56 Respiratory Rate 15 10/30/16 07:58 Blood Pressure 104/78 10/30/16 07:56 O2 Sat by Pulse Oximetry (%) 100 10/30/16 07:58 Respiratory: Yes: CTA Bilaterally, Intubated, Mechanically Ventilated Gastrointestinal: Yes: Normal Bowel Sounds, Soft. No: Distention Edema: No Neurological: Yes: Other (Sedated) Labs: CBC, BMP 10/30/16 05:30 10/30/16 05:30 INR, PTT INR 1.50 (0.82-1.09) H 10/29/16 06:00 Fibrinogen 111.0 mg/dL (238-498) L 10/28/16 13:40 Assessment/Plan 80 yo female with HTN, ESRD -> HD, ovarian CA, who presented with abd pain -> cardiopulmonary arrest -> seizures -> intubated and was requiring norepinephrine. Patient was extubated and continues to remain off pressors. Etiology of cardiopulmonary arrest not clear. However, patient with right calf DVT per 10/22/16 Doppler -> raising question of PE (though reported rhythm was asystole). PEA may have degenerated into asystole. Trop I were indeterminate, 0.04 -> 0.10 -> 0.08 -> 0.06. 10/23/16 Echo: Mild global LV dysfunction, mild MR, mild to mod TR, PASP 30-40 mmHg, mild AR, mild to mod SC, small pericardial effusion (no tamponade) 10/24 CTA chest did not demonstrate aortic dissection or central pulmonary embolism. Dilate aorta and pulmonary arteries. Small bilateral pleural effusions. Repeat ECG on 10/25/16 Q waves in aVL and loss of R wave in precordium -> new compared to 10/22/16 ECG. Repeat ECG confirmed these findings. Stress test entertained, but deferred as she is not a good candidate for intervention. Patient developed probable GI bleed while on Eliquis with drop in Hgb. Eliquis was held. Underwent transfusion with PRBC on but went into respiratory failure -> intubated. Underwent IV filter yesterday. Repeat venous Doppler on 10/27/16 did not demonstrate previously reported right calf DVT on 10/22/16 study. Patient with anemia, thrombocytopenia, DIC?. Patient also developed new onset atrial fibrillation, which is likely secondary to recent events. Currently remains in atrial fibrillation, with HR 90-100s, which is acceptable current clinical status. Currently on pressors. Extubated on 2/5 AM but intubated again in afternoon on . RECS: Patient not candidate for further anticoagulation. No further cardiac work-up at this time. May give metoprolol tartrate 5 mg IV q6h prn HR > 130s consistently and patient' s BP is normotensive without use of pressors. Would recommend discussion regarding patient's code status with family. Vent management per critical care/pulmonary. Further management as per primary team/neuro/ID. Will see prn. Please call with questions.
--- NOTE | 2016-10-30 11:36 | PN ---
Progress Note, Physician History of Present Illness: Pt seen and examined at bedside. She remains in the ICU. She remains intubated. - Current Medication List Current Medications: Active Medications Albuterol Sulfate (Ventolin 0.083% Nebulizer Soln -) 1 amp NEB Q4H PRN PRN Reason: SHORT OF BREATH/WHEEZING Last Admin: 10/26/16 09:55 Dose: 1 amp Albuterol/Ipratropium (Duoneb -) 1 amp NEB TIDR MARIE Last Admin: 10/30/16 06:30 Dose: 1 amp Pantoprazole Sodium 80 mg/ (Sodium Chloride) 100 mls @ 10 mls/hr IVPB Q10H MARIE PRN Reason: 8 MG/HR Last Admin: 10/30/16 10:50 Dose: 10 mls/hr Cefepime HCl 0.5 gm/ Dextrose 50 mls @ 100 mls/hr IVPB DAILY MARIE Last Admin: 10/30/16 10:52 Dose: 100 mls/hr Fluconazole (Diflucan 100 Mg/D5w Premixed Ivpb -) 50 mls @ 50 mls/hr IVPB Q2D@ 1000 MARIE Last Admin: 10/29/16 11:40 Dose: 50 mls/hr Propofol (Diprivan -) 100 mls @ 1.28 mls/hr IVPB TITR MARIE; 5 MCG/KG/MIN PRN Reason: Protocol Last Titration: 10/30/16 01:00 Dose: 5 mcg/kg/min Norepinephrine Bitartrate 16, (000 mcg/ Dextrose) 500 mls @ 9.37 mls/hr IV TITR MARIE; 5 MCG/MIN PRN Reason: Protocol Last Admin: 10/29/16 22:14 Dose: 9.37 mls/hr Fentanyl 500 mcg/ Dextrose 100 mls @ 5 mls/hr IJ TITR MARIE PRN Reason: 25 MCG/HR Last Admin: 10/29/16 22:16 Dose: 5 mls/hr Levetiracetam (Keppra Injection -) 500 mg IVPB BID MARIE Last Admin: 10/30/16 10:52 Dose: 500 mg - Objective Vital Signs: Vital Signs Temperature 97.6 F 10/30/16 06:00 Pulse Rate 107 H 10/30/16 11:10 Respiratory Rate 15 10/30/16 09:25 Blood Pressure 104/78 10/30/16 07:56 O2 Sat by Pulse Oximetry (%) 99 10/30/16 11:10 Constitutional: Yes: Calm Eyes: Yes: Conjunctiva Clear HENT: Yes: Atraumatic Neck: Yes: Supple Cardiovascular: Yes: S1, S2 Respiratory: Yes: Mechanically Ventilated Gastrointestinal: Yes: Soft Genitourinary: Yes: Incontinence Musculoskeletal: Yes: Muscle Weakness Edema: No Neurological: Yes: Lethargy Labs: CBC, BMP 10/30/16 05:30 10/30/16 05:30 INR, PTT INR 1.50 (0.82-1.09) H 10/29/16 06:00 Fibrinogen 111.0 mg/dL (238-498) L 10/28/16 13:40 - ....Imaging Chest X-ray: Report Reviewed Problem List - Problems (1) Cardiopulmonary arrest Code(s): I46.9 - CARDIAC ARREST, CAUSE UNSPECIFIED (2) DVT (deep venous thrombosis) Code(s): I82.409 - ACUTE EMBOLISM AND THOMBOS UNSP DEEP VN UNSP LOWER EXTREMITY (3) ESRD (end stage renal disease) on dialysis Code(s): N18.6 - END STAGE RENAL DISEASE Z99.2 - DEPENDENCE ON RENAL DIALYSIS (4) HCV (hepatitis C virus) Code(s): B19.20 - UNSPECIFIED VIRAL HEPATITIS C WITHOUT HEPATIC COMA (5) Respiratory failure Code(s): J96.90 - RESPIRATORY FAILURE, UNSP, UNSP W HYPOXIA OR HYPERCAPNIA Assessment/Plan Current Medications Generic Name Dose Route Start Last Admin Trade Name Freq PRN Reason Stop Dose Admin Albuterol Sulfate 1 amp 10/25/16 13:58 10/26/16 09:55 Ventolin 0.083% Nebulizer Soln - NEB 1 amp Q4H PRN Administration SHORT OF BREATH/WHEEZING Albuterol/Ipratropium 1 amp 10/25/16 14:00 10/30/16 06:30 Duoneb - NEB 1 amp TIDR MARIE Administration Pantoprazole Sodium 80 mg/ 100 mls @ 10 mls/hr 10/26/16 17:00 10/30/16 10:50 Sodium Chloride IVPB 10 mls/hr Q10H MARIE Administration 8 MG/HR Cefepime HCl 0.5 gm/ Dextrose 50 mls @ 100 mls/hr 10/29/16 10:00 10/30/16 10:52 IVPB 100 mls/hr DAILY MARIE Administration Fluconazole 50 mls @ 50 mls/hr 10/29/16 12:00 10/29/16 11:40 Diflucan 100 Mg/D5w Premixed Ivpb - IVPB 50 mls/hr Q2D@1000 MARIE Administration Propofol 100 mls @ 1.28 mls/hr 10/29/16 13:00 10/30/16 01:00 Diprivan - IVPB 5 mcg/kg/min TITR MARIE Titration Protocol 5 MCG/KG/MIN Norepinephrine Bitartrate 16, 500 mls @ 9.37 mls/hr 10/29/16 21:15 10/29/16 22: 14 000 mcg/ Dextrose IV 9.37 mls/hr TITR MARIE Administration Protocol 5 MCG/MIN Fentanyl 500 mcg/ Dextrose 100 mls @ 5 mls/hr 10/29/16 21:15 10/29/16 22:16 IJ 5 mls/hr TITR MARIE Administration 25 MCG/HR Levetiracetam 500 mg 10/25/16 22:00 10/30/16 10:52 Keppra Injection - IVPB 500 mg BID MARIE Administration Impression 1. ESRD 2. s/p cardiopulmonary arrest 3. acute respiratory failure 4. Pneumonia 5. DVT of right leg 6. S/P Seizure following the arrest 7. Right renal complex cyst > 5cms in diameter 8. Anemia 9. Thrombocytopenia 10. H/O HCV 11. active GI bleed Plan - cont vent support - will re-evaluate for HD tomorrow - she had an extra run on Sunday night - discussed with ICU team - monitor CBC - monitor blood pressure - discussed with ICU team today - monitor pulse ox Dr Espino
--- NOTE | 2016-10-30 11:41 | PN ---
Addendum entered and electronically signed by Howard Shea, LIONEL 10/30/16 16: 40: NG tube placed @ 1630 -position confirmed by auscultation and CXR ordered. REJ removed. Original Note: Physical Exam: SUBJECTIVE: Patient seen and examined at bedside. Patient remains intubated and sedated. OBJECTIVE: Vital Signs Period Temp Pulse Resp BP Sys/Hodgson Pulse Ox Last 24 Hr 97.0 F-97.8 F 76-111 15-25 92-122/55-78 96-100 GENERAL: Intubated and sedated. HEAD: Normal with no signs of trauma. EYES: PERRL, extraocular movements intact, sclera anicteric, conjunctiva clear. ENT: moist mucous membranes. NECK: Trachea midline, full range of motion, supple. LIJ in place LUNGS: bilateral diminished breathsounds. Scattered Rhonchi HEART: Regular rate and rhythm, S1, S2 without murmur, rub or gallop. ABDOMEN: Soft, nontender, nondistended, normoactive bowel sounds, no guarding, no rebound, no hepatosplenomegaly, no masses. EXTREMITIES: 2+ pulses, warm, well-perfused, no edema. NEUROLOGICAL: sedated. PSYCH: unable to assess. SKIN: Warm, dry, normal turgor, no rashes or lesions noted Laboratory Results - last 24 hr 10/24/16 10/30/16 10/30/16 15:07 05:30 05:30 WBC 6.9 RBC 3.02 L Hgb 9.6 L Hct 28.0 L MCV 92.8 MCHC 34.2 RDW 23.8 H Plt Count 34 L* D MPV 13.2 H D Neutrophils % 80.2 Lymphocytes % 15.5 Monocytes % 4.0 Eosinophils % 0.0 D Basophils % 0.3 Differential Comment Slide scanned Platelet Estimate Markedly decreased Platelet Comment No clotting detected Polychromasia 2+ Hypochromic-Microcytic 2+ Poikilocytosis 3+ Anisocytosis 3+ Microcytosis 1+ Macrocytosis 2+ Spherocytes 1+ Fragmented RBCs 1+ Puncture Site ABG pH ABG pCO2 at Pt Temp ABG pO2 at Pt Temp ABG HCO3 ABG O2 Sat (Measured) ABG O2 Content ABG Base Excess Ventura Test O2 Delivery Device Oxygen Flow Rate Vent Mode Vent Rate Mechanical Rate PEEP Pressure Support Vent Sodium 142 Potassium 3.7 Chloride 105 Carbon Dioxide 24 Anion Gap 13 BUN 20 H D Creatinine 2.4 H D Creat Clearance w eGFR 19.47 Random Glucose 121 H D Calcium 7.5 L Phosphorus 2.3 L D Total Bilirubin 1.1 H D AST 15 D ALT 9 L Alkaline Phosphatase 59 Total Protein 6.3 L Albumin 1.9 L Stool Occult Blood Blood Type B POSITIVE Antibody Screen Positive H Crossmatch See Detail 10/30/16 10/30/16 07:00 07:10 WBC RBC Hgb Hct MCV MCHC RDW Plt Count MPV Neutrophils % Lymphocytes % Monocytes % Eosinophils % Basophils % Differential Comment Platelet Estimate Platelet Comment Polychromasia Hypochromic-Microcytic Poikilocytosis Anisocytosis Microcytosis Macrocytosis Spherocytes Fragmented RBCs Puncture Site Right radial ABG pH 7.51 H ABG pCO2 at Pt Temp 30.1 L ABG pO2 at Pt Temp 177.0 H* D ABG HCO3 23.6 ABG O2 Sat (Measured) 99.3 H ABG O2 Content 13.4 L ABG Base Excess 1.3 Ventura Test Positive O2 Delivery Device Vent Oxygen Flow Rate 35 Vent Mode A/c Vent Rate 15 Mechanical Rate Yes PEEP 5.0 Pressure Support Vent 350 Sodium Potassium Chloride Carbon Dioxide Anion Gap BUN Creatinine Creat Clearance w eGFR Random Glucose Calcium Phosphorus Total Bilirubin AST ALT Alkaline Phosphatase Total Protein Albumin Stool Occult Blood Positive Blood Type Antibody Screen Crossmatch Active Medications Generic Name Dose Route Start Last Admin Trade Name Freq PRN Reason Stop Dose Admin Albuterol Sulfate 1 amp 10/25/16 13:58 10/26/16 09:55 Ventolin 0.083% Nebulizer Soln - NEB 1 amp Q4H PRN Administration SHORT OF BREATH/WHEEZING Albuterol/Ipratropium 1 amp 10/25/16 14:00 10/30/16 06:30 Duoneb - NEB 1 amp TIDR MARIE Administration Pantoprazole Sodium 80 mg/ 100 mls @ 10 mls/hr 10/26/16 17:00 10/30/16 10:50 Sodium Chloride IVPB 10 mls/hr Q10H MARIE Administration 8 MG/HR Cefepime HCl 0.5 gm/ Dextrose 50 mls @ 100 mls/hr 10/29/16 10:00 10/30/16 10:52 IVPB 100 mls/hr DAILY MARIE Administration Fluconazole 50 mls @ 50 mls/hr 10/29/16 12:00 10/29/16 11:40 Diflucan 100 Mg/D5w Premixed Ivpb - IVPB 50 mls/hr Q2D@1000 MARIE Administration Propofol 100 mls @ 1.28 mls/hr 10/29/16 13:00 10/30/16 01:00 Diprivan - IVPB 5 mcg/kg/min TITR MARIE Titration Protocol 5 MCG/KG/MIN Norepinephrine Bitartrate 16, 500 mls @ 9.37 mls/hr 10/29/16 21:15 10/29/16 22: 14 000 mcg/ Dextrose IV 9.37 mls/hr TITR MARIE Administration Protocol 5 MCG/MIN Fentanyl 500 mcg/ Dextrose 100 mls @ 5 mls/hr 10/29/16 21:15 10/29/16 22:16 IJ 5 mls/hr TITR MARIE Administration 25 MCG/HR Levetiracetam 500 mg 10/25/16 22:00 10/30/16 10:52 Keppra Injection - IVPB 500 mg BID MARIE Administration ASSESSMENT/PLAN: 80 yo F F with PMHx of HCV, HTN , ESRD (HD MWF) admitted to ICU s/p Cariopulmonary arrest. Intubated and sedated. Hospital DAY #9 Neuro: * Intubated and sedated * Continue Keppra 200mg PO BID * Pain control - morphine 2mg IV Q4PRN * Followed by Dr. Valenzuela Puljaxon: * Intubated overnight for acute respiratory failure * Sadated with Propofol * maintain O2 sat >90% * maintain intubated today. * Duonebs TID * Aspiration precautions. CV: * US shows RLE DVT - IVC filter * LIJ in place currently on NE @ 4 mcq for pressure support. * Echo shows normal LV size. Mildly reduced LV func with mild hypokinesis. Mild mitral valve thickening. Mild MR, Mild-Mod TR. Mod , mild AR, mild-mod MO, small pericardial effusion (<1cm). * No clear etiology of arrest will get CTA today(-) for PE GI: * Dr. Carr consulted * transfused 2 units Plt. over weekend. * AC stopped * protonix drip started. * Transfused 1 U PRBC - with appropriate response. 7.2-->8.4 Renal: * HD held today as per Dr. Espino. * repeat CMP in AM * avoid nephrotoxins. Prophylaxis: * DVT-no AC due to acute bleed. IVC filter in place. * GI- Protonix drip F/E/N * NO IVF at this time * HD today * initiate tube feeds today with Jevity 1.5 for a total of 1500CC DISPO: Will continue to Monitor in ICU. Visit type - Emergency Visit Emergency Visit: Yes ED Registration Date: 10/22/16 Care time: The patient presented to the Emergency Department on the above date and was hospitalized for further evaluation of their emergent condition. - New Patient This patient is new to me today: No - Critical Care Critical Care patient: Yes Total Critical Care Time (in minutes): 32 Critical Care Statement: The care of this patient involved high complexity decision making to prevent further life threatening deterioration of the patient 's condition and/or to evalute & treat vital organ system(s) failure or risk of failure.
--- NOTE | 2016-10-30 12:27 | PN ---
Teaching Attending Note Name of Resident: Howard Shea ATTENDING PHYSICIAN STATEMENT I saw and evaluated the patient. I reviewed the resident's note and discussed the case with the resident. I agree with the resident's findings and plan as documented. SUBJECTIVE: Patient seen and examined in the ICU. Intubated and sedated. AC Mode of vent. NE @ 4 mcq. Intake & Output 10/27/16 10/28/16 10/29/16 10/30/16 23:59 23:59 23:59 23:59 Intake Total 899.8 1962 1444 287.3 Output Total 0 Balance 899.8 1962 1444 287.3 Weight 97 lb 12.8 oz 98 lb 6 oz 94 lb 1 oz 98 lb Last Vital Signs Temp Pulse Resp BP Pulse Ox 97.6 F 107 H 15 112/76 99 10/30/16 10:00 10/30/16 11:10 10/30/16 11:53 10/30/16 11:00 10/30/16 12:19 Active Medications Albuterol Sulfate (Ventolin 0.083% Nebulizer Soln -) 1 amp NEB Q4H PRN PRN Reason: SHORT OF BREATH/WHEEZING Last Admin: 10/26/16 09:55 Dose: 1 amp Albuterol/Ipratropium (Duoneb -) 1 amp NEB TIDR MARIE Last Admin: 10/30/16 06:30 Dose: 1 amp Pantoprazole Sodium 80 mg/ (Sodium Chloride) 100 mls @ 10 mls/hr IVPB Q10H MARIE PRN Reason: 8 MG/HR Last Admin: 10/30/16 10:50 Dose: 10 mls/hr Cefepime HCl 0.5 gm/ Dextrose 50 mls @ 100 mls/hr IVPB DAILY MARIE Last Admin: 10/30/16 10:52 Dose: 100 mls/hr Fluconazole (Diflucan 100 Mg/D5w Premixed Ivpb -) 50 mls @ 50 mls/hr IVPB Q2D@ 1000 MARIE Last Admin: 10/29/16 11:40 Dose: 50 mls/hr Propofol (Diprivan -) 100 mls @ 1.28 mls/hr IVPB TITR MARIE; 5 MCG/KG/MIN PRN Reason: Protocol Last Titration: 10/30/16 01:00 Dose: 5 mcg/kg/min Norepinephrine Bitartrate 16, (000 mcg/ Dextrose) 500 mls @ 9.37 mls/hr IV TITR MARIE; 5 MCG/MIN PRN Reason: Protocol Last Titration: 10/30/16 11:00 Dose: 4 mcg/min Fentanyl 500 mcg/ Dextrose 100 mls @ 5 mls/hr IJ TITR MARIE PRN Reason: 25 MCG/HR Last Admin: 10/29/16 22:16 Dose: 5 mls/hr Levetiracetam (Keppra Injection -) 500 mg IVPB BID MARIE Last Admin: 10/30/16 10:52 Dose: 500 mg GEN: Elderly woman Intubated & sedated on mechanical ventilation Neuro: unresponsive HEENT: PERRL, R cataract, an-icteric, epistaxis, perioral bleeding PULM: R coarse, L basilar crackles CV: nml S1 S2, Irreg ABD: soft, non-tender EXT: + Pulses, [id number], LE Dialysis fistula Laboratory Results - last 24 hr 10/24/16 10/27/16 10/30/16 15:07 13:35 05:30 WBC 6.9 RBC 3.02 L Hgb 9.6 L Hct 28.0 L MCV 92.8 MCHC 34.2 RDW 23.8 H Plt Count 34 L* D MPV 13.2 H D Neutrophils % 80.2 Lymphocytes % 15.5 Monocytes % 4.0 Eosinophils % 0.0 D Basophils % 0.3 Differential Comment Slide scanned Platelet Estimate Markedly decreased Platelet Comment No clotting detected Polychromasia 2+ Hypochromic-Microcytic 2+ Poikilocytosis 3+ Anisocytosis 3+ Microcytosis 1+ Macrocytosis 2+ Spherocytes 1+ Fragmented RBCs 1+ Puncture Site ABG pH ABG pCO2 at Pt Temp ABG pO2 at Pt Temp ABG HCO3 ABG O2 Sat (Measured) ABG O2 Content ABG Base Excess Ventura Test O2 Delivery Device Oxygen Flow Rate Vent Mode Vent Rate Mechanical Rate PEEP Pressure Support Vent Sodium Potassium Chloride Carbon Dioxide Anion Gap BUN Creatinine Creat Clearance w eGFR Random Glucose Calcium Phosphorus Total Bilirubin AST ALT Alkaline Phosphatase Total Protein Albumin Stool Occult Blood Blood Type B POSITIVE Antibody Screen Positive H Antibody ID (Elution) Crossmatch See Detail See Detail 10/30/16 10/30/16 10/30/16 05:30 07:00 07:10 WBC RBC Hgb Hct MCV MCHC RDW Plt Count MPV Neutrophils % Lymphocytes % Monocytes % Eosinophils % Basophils % Differential Comment Platelet Estimate Platelet Comment Polychromasia Hypochromic-Microcytic Poikilocytosis Anisocytosis Microcytosis Macrocytosis Spherocytes Fragmented RBCs Puncture Site Right radial ABG pH 7.51 H ABG pCO2 at Pt Temp 30.1 L ABG pO2 at Pt Temp 177.0 H* D ABG HCO3 23.6 ABG O2 Sat (Measured) 99.3 H ABG O2 Content 13.4 L ABG Base Excess 1.3 Ventura Test Positive O2 Delivery Device Vent Oxygen Flow Rate 35 Vent Mode A/c Vent Rate 15 Mechanical Rate Yes PEEP 5.0 Pressure Support Vent 350 Sodium 142 Potassium 3.7 Chloride 105 Carbon Dioxide 24 Anion Gap 13 BUN 20 H D Creatinine 2.4 H D Creat Clearance w eGFR 19.47 Random Glucose 121 H D Calcium 7.5 L Phosphorus 2.3 L D Total Bilirubin 1.1 H D AST 15 D ALT 9 L Alkaline Phosphatase 59 Total Protein 6.3 L Albumin 1.9 L Stool Occult Blood Positive Blood Type Antibody Screen Antibody ID (Elution) Crossmatch ASSESSMENT: 1. ESRD on HD 2. S/P cardiopulmonary arrest 3. acute respiratory failure 4. HCAP 5. R LE DVT (Now S/P IVC) 6. S/P Seizure following the arrest 7. Right renal complex cyst > 5cms in diameter 8. Anemia 9. Thrombocytopenia 10. H/O HCV 11. active GIB 12. A-fib PLAN: -Cont mechanical ventilation - daily SBT -Hold sedation to assess mental status -Nebs -Normal Transfusion Thresholds -Cont Vanc & Cefe (HCAP) -Pressors for MAP 65-75 - wean as able -Rate control as needed -HD per Renal -Keppra -Hold off on AC in the setting of profound thrombocytopenia +/- DIC -Will attempt cautious OGT insertion -PPI CCTime 35" Dr Gonzalez
[2016-10-30] MEDS: PROPOFOL 100 ML IVPB SCH ×2 (12:55→23:00)
--- NOTE | 2016-10-30 15:51 | PN ---
Progress Note (short form) - Note Progress Note: Grimaces and withdrawals to pain with hx of anoxic event no facial symmetry and DTR 1/4 with upgoing plantar responses Appears to have improved, although is my initial neurological evaluation of the patient P: continue to optimize her medical condition with no further neuro- investigative studies medically necessary at this time.
--- NOTE | 2016-10-30 16:24 | PN ---
Progress Note, Physician Chief Complaint: intubated awake calm - Current Medication List Current Medications: Active Medications Pantoprazole Sodium 80 mg/ (Sodium Chloride) 100 mls @ 10 mls/hr IVPB Q10H MARIE PRN Reason: 8 MG/HR Last Admin: 10/30/16 10:50 Dose: 10 mls/hr Cefepime HCl 0.5 gm/ Dextrose 50 mls @ 100 mls/hr IVPB DAILY [facility]IE Last Admin: 10/30/16 10:52 Dose: 100 mls/hr Fluconazole (Diflucan 100 Mg/D5w Premixed Ivpb -) 50 mls @ 50 mls/hr IVPB Q2D@ 1000 MARIE Last Admin: 10/29/16 11:40 Dose: 50 mls/hr Propofol (Diprivan -) 100 mls @ 1.28 mls/hr IVPB TITR MARIE; 5 MCG/KG/MIN PRN Reason: Protocol Last Titration: 10/30/16 01:00 Dose: 5 mcg/kg/min Norepinephrine Bitartrate 16, (000 mcg/ Dextrose) 500 mls @ 9.37 mls/hr IV TITR MARIE; 5 MCG/MIN PRN Reason: Protocol Last Titration: 10/30/16 15:00 Dose: 3 mcg/min Fentanyl 500 mcg/ Dextrose 100 mls @ 5 mls/hr IJ TITR MARIE PRN Reason: 25 MCG/HR Last Admin: 10/29/16 22:16 Dose: 5 mls/hr Levetiracetam (Keppra Injection -) 500 mg IVPB BID MARIE Last Admin: 10/30/16 10:52 Dose: 500 mg - Objective Vital Signs: Vital Signs Temperature 97.2 F L 10/30/16 14:00 Pulse Rate 98 H 10/30/16 15:00 Respiratory Rate 15 10/30/16 15:00 Blood Pressure 112/67 10/30/16 15:00 O2 Sat by Pulse Oximetry (%) 99 10/30/16 12:19 Cardiovascular: Yes: S1, S2 Respiratory: Yes: Diminished Gastrointestinal: Yes: Normal Bowel Sounds, Soft Labs: CBC, BMP 10/30/16 05:30 10/30/16 05:30 INR, PTT INR 1.50 (0.82-1.09) H 10/29/16 06:00 Fibrinogen 111.0 mg/dL (238-498) L 10/28/16 13:40 Problem List - Problems (1) Cardiopulmonary arrest Code(s): I46.9 - CARDIAC ARREST, CAUSE UNSPECIFIED (2) DVT (deep venous thrombosis) Code(s): I82.409 - ACUTE EMBOLISM AND THOMBOS UNSP DEEP VN UNSP LOWER EXTREMITY (3) ESRD (end stage renal disease) on dialysis Code(s): N18.6 - END STAGE RENAL DISEASE Z99.2 - DEPENDENCE ON RENAL DIALYSIS (4) Pneumonia Code(s): J18.9 - PNEUMONIA, UNSPECIFIED ORGANISM (5) Respiratory failure Code(s): J96.90 - RESPIRATORY FAILURE, UNSP, UNSP W HYPOXIA OR HYPERCAPNIA Assessment/Plan (1) Cardiopulmonary arrest Code(s): I46.9 - CARDIAC ARREST, CAUSE UNSPECIFIED (2) DVT (deep venous thrombosis) Code(s): I82.409 - ACUTE EMBOLISM AND THOMBOS UNSP DEEP VN UNSP LOWER EXTREMITY (3) ESRD (end stage renal disease) on dialysis Code(s): N18.6 - END STAGE RENAL DISEASE Z99.2 - DEPENDENCE ON RENAL DIALYSIS (4) HCV (hepatitis C virus) Code(s): B19.20 - UNSPECIFIED VIRAL HEPATITIS C WITHOUT HEPATIC COMA (5) Metabolic encephalopathy Code(s): G93.41 - METABOLIC ENCEPHALOPATHY (6) Pneumonia Code(s): J18.9 - PNEUMONIA, UNSPECIFIED ORGANISM (7) Respiratory failure Code(s): J96.90 - RESPIRATORY FAILURE, UNSP, UNSP W HYPOXIA OR HYPERCAPNIA Assessment/Plan CTA NEGATIVE FOR PE OR DISSECTION MODIFIED BARIUM SHOWS HOLDING PHASE ON CHOPPED DIET WITH DYSPHAGIA PRECAUTIONS - > NOW INTUBATED NOT IMPROVING RENAL FUNCTION RENAL ON CASE PT EVAL AND BEDSIDE ROM IV ABX PER ID WILL NEED STRESS TEST AND CARDIAC CATH OUTPATIENT -> ? ANEMIA/FOBT +ria/LOW PLT/HCV -> HEME & GI ON CASE PASTOR ROSS
[2016-10-30] MEDS: FENTANYL INJECTION 500 MCG in DEXTROSE 5%-WATER - 90 ML IJ SCH ×2 (19:26→21:15)
--- NOTE | 2016-10-30 19:48 | PN ---
Progress Note (short form) - Note Progress Note: Patient seen and examined intubated awake looking around not following commands Last Vital Signs Temp Pulse Resp BP Pulse Ox 97.5 F L 96 H 15 105/68 99 10/30/16 17:00 10/30/16 18:30 10/30/16 18:55 10/30/16 18:30 10/30/16 12:19 intubated Cor: RSR, No murmurs, No gallops Lungs: Clear to P&A Abd: Soft, Normal bowel sounds, No organomegaly Ext:No significant edema Abnormal Lab Results 10/27/16 10/30/16 10/30/16 13:35 05:30 05:30 RBC 3.02 L Hgb 9.6 L Hct 28.0 L RDW 23.8 H Plt Count 34 L* D MPV 13.2 H D ABG pH ABG pCO2 at Pt Temp ABG pO2 at Pt Temp ABG O2 Sat (Measured) ABG O2 Content BUN 20 H D Creatinine 2.4 H D Random Glucose 121 H D Calcium 7.5 L Phosphorus 2.3 L D Total Bilirubin 1.1 H D ALT 9 L Total Protein 6.3 L Albumin 1.9 L Crossmatch See Detail 10/30/16 07:10 RBC Hgb Hct RDW Plt Count MPV ABG pH 7.51 H ABG pCO2 at Pt Temp 30.1 L ABG pO2 at Pt Temp 177.0 H* D ABG O2 Sat (Measured) 99.3 H ABG O2 Content 13.4 L BUN Creatinine Random Glucose Calcium Phosphorus Total Bilirubin ALT Total Protein Albumin Crossmatch Current Medications Pantoprazole Sodium 80 mg/ (Sodium Chloride) 100 mls @ 10 mls/hr IVPB Q10H [facility] PRN Reason: 8 MG/HR Last Admin: 10/30/16 19:27 Dose: 10 mls/hr Cefepime HCl 0.5 gm/ Dextrose 50 mls @ 100 mls/hr IVPB DAILY [facility] Last Admin: 10/30/16 10:52 Dose: 100 mls/hr Fluconazole (Diflucan 100 Mg/D5w Premixed Ivpb -) 50 mls @ 50 mls/hr IVPB Q2D@ 1000 MARIE Last Admin: 10/29/16 11:40 Dose: 50 mls/hr Propofol (Diprivan -) 100 mls @ 1.28 mls/hr IVPB TITR MARIE; 5 MCG/KG/MIN PRN Reason: Protocol Last Titration: 10/30/16 16:00 Dose: 0 mcg/kg/min Norepinephrine Bitartrate 16, (000 mcg/ Dextrose) 500 mls @ 9.37 mls/hr IV TITR MARIE; 5 MCG/MIN PRN Reason: Protocol Last Titration: 10/30/16 17:30 Dose: 2 mcg/min Fentanyl 500 mcg/ Dextrose 100 mls @ 5 mls/hr IJ TITR MARIE PRN Reason: 25 MCG/HR Last Admin: 10/30/16 19:26 Dose: 5 mls/hr Levetiracetam (Keppra Injection -) 500 mg IVPB BID MARIE Last Admin: 10/30/16 10:52 Dose: 500 mg A/P Intubated 3 times this admission Pneumonia with respiratory failure S/P Seizure following the arrest- ESRD LE edema with severe hypoalbuminemia Right renal complex cyst > 5cms in diameter H/O HCV/liver disease H/O GIB Cachexia Soleal DVT Thrombocytopena/coagulopathy RLE distal DVT --had been on heparin. Bleeding actively rectally and hnce hparin was stopped. s/p ivc filter placement thrombocytopnia/coagulopathy --due to sepsis/DIC vrsus undrlying Hp. c liver disease . Will need FFP/platelets if actively bleeding anemia --bleeding plus chronic disease --ESRD/sepsis Abnormal CT--Lt. humrus dstructive lesion and hypodensities liver --further w/u after stabilized clinically to r/o malignancy
[2016-10-30] MEDS: NOREPINEPHRINE BITARTRATE 8,000 MCG in DEXTROSE 5%-WATER - 242 ML IV SCH (21:13)
[2016-10-31 05:39] LABS: BASOPHIL 0.5 % (0-2.0); MCH 31.4 pg (25.7-33.7); MCHC 33.8 g/dl (32.0-36.0); MEAN CELL VOLUME 93.1 fl (80-96); MEAN PLT VOLUME 12.2 fl (7.5-11.1); NEUTROPHILS 72.9 % (42.8-82.8); RDW 23.2 % (11.6-15.6); WHITE BLOOD COUNT 7.9 K/mm3 (4.0-10.0)
[2016-10-31 05:58] LABS: INR 1.49 (0.82-1.09); PROTHROMBIN TIME (PATIENT) 16.5 SEC (9.98-11.88)
[2016-10-31 06:00] LABS: ACTIVATED PTT 42.3 SECONDS (26.9-34.4)
[2016-10-31 06:01] LABS: PLATELET COUNT 30 K/MM3 (134-434)
[2016-10-31 06:04] LABS: ALBUMIN 1.7 g/dl (3.4-5.0); CALCIUM 7.7 mg/dL (8.5-10.1); CREATININE 2.9 mg/dL (0.55-1.02); PHOSPHOROUS 2.8 mg/dL (2.5-4.9)
[2016-10-31 06:06] LABS: BILIRUBIN,TOTAL 0.8 mg/dL (0.2-1.0)
[2016-10-31 07:34] LABS: ARTERIAL BLD GAS O2 SATURATION 97.6 % (90-98.9); ARTERIAL BLOOD GAS BASE EXCESS 0.1 meq/l (-2-2); ARTERIAL BLOOD GAS HCO3 22.9 meq/L (22-26)
[2016-10-31 07:35] LABS: ALLENS TEST POSITIVE; ART PUNCT SITE RIGHT RADIAL; ARTERIAL BLOOD GAS pH 7.48 (7.35-7.45); LPM/O2% 35; MECH. VENT. YES; PT. ON O2? YES; TYPE OF O2 VENT; VENT RATE 15; VT/PRESS 350
[2016-10-31] MEDS: PANTOPRAZOLE SODIUM 80 MG in SODIUM CHLORIDE 100 ML IVPB SCH ×2 (08:04→17:03)
[2016-10-31] MEDS: CEFEPIME 0.5 GM in DEXTROSE 5%-WATER - 50 ML IVPB SCH (09:55)
[2016-10-31] MEDS: FLUCONAZOLE 100 MG/D5W 50 ML IVPB SCH (09:55)
[2016-10-31] MEDS: levETIRAcetam 500 MG/5 ML INJECTION VIAL IVPB SCH ×2 (09:55→21:37)
--- NOTE | 2016-10-31 12:00 | PN ---
Teaching Attending Note Name of Resident: Howard Shea ATTENDING PHYSICIAN STATEMENT I saw and evaluated the patient. I reviewed the resident's note and discussed the case with the resident. I agree with the resident's findings and plan as documented. SUBJECTIVE: Patient seen and examined in the ICU. Remains intubated and sedated. AC Mode of vent, 40% FiO2. NE @ 2 mcq. Intake & Output 10/28/16 10/29/16 10/30/16 10/31/16 23:59 23:59 23:59 23:59 Intake Total 1962 1444 287.3 1018.4 Output Total 0 0 Balance 1962 1444 287.3 1018.4 Weight 98 lb 6 oz 94 lb 1 oz 98 lb 100 lb 2 oz Last Vital Signs Temp Pulse Resp BP Pulse Ox 97.9 F 100 H 15 104/55 100 10/31/16 10:00 10/31/16 10:00 10/31/16 11:50 10/31/16 10:00 10/31/16 09:08 Active Medications Pantoprazole Sodium 80 mg/ (Sodium Chloride) 100 mls @ 10 mls/hr IVPB Q10H [facility] PRN Reason: 8 MG/HR Last Admin: 10/31/16 08:04 Dose: 10 mls/hr Cefepime HCl 0.5 gm/ Dextrose 50 mls @ 100 mls/hr IVPB DAILY [facility] Last Admin: 10/31/16 09:55 Dose: 100 mls/hr Fluconazole (Diflucan 100 Mg/D5w Premixed Ivpb -) 50 mls @ 50 mls/hr IVPB Q2D@ 1000 MARIE Last Admin: 10/31/16 09:55 Dose: 50 mls/hr Propofol (Diprivan -) 100 mls @ 1.28 mls/hr IVPB TITR MARIE; 5 MCG/KG/MIN PRN Reason: Protocol Last Admin: 10/30/16 23:00 Dose: 2.56 mls/hr Fentanyl 500 mcg/ Dextrose 100 mls @ 5 mls/hr IJ TITR MARIE PRN Reason: 25 MCG/HR Last Admin: 10/30/16 21:15 Dose: Not Given Norepinephrine Bitartrate 8, (000 mcg/ Dextrose) 250 mls @ 9.37 mls/hr IV TITR MARIE; 5 MCG/MIN PRN Reason: Protocol Last Admin: 10/30/16 21:13 Dose: 3.75 mls/hr Levetiracetam (Keppra Injection -) 500 mg IVPB BID MARIE Last Admin: 10/31/16 09:55 Dose: 500 mg GEN: Elderly woman Intubated & sedated on mechanical ventilation Neuro: unresponsive HEENT: PERRL, R cataract, an-icteric, epistaxis, perioral bleeding PULM: R coarse, L basilar crackles CV: nml S1 S2, Irreg ABD: soft, non-tender EXT: + Pulses, WWPX4, LE Dialysis fistula Laboratory Results - last 24 hr 10/27/16 10/29/16 10/29/16 13:35 06:00 06:00 WBC RBC Hgb Hct MCV MCHC RDW Plt Count MPV Neutrophils % Lymphocytes % Monocytes % Eosinophils % Basophils % Haptoglobin 58 INR PTT (Actin FS) Puncture Site ABG pH ABG pCO2 at Pt Temp ABG pO2 at Pt Temp ABG HCO3 ABG O2 Sat (Measured) ABG O2 Content ABG Base Excess Ventura Test O2 Delivery Device Oxygen Flow Rate Vent Mode Vent Rate Mechanical Rate PEEP Pressure Support Vent Sodium Potassium Chloride Carbon Dioxide Anion Gap BUN Creatinine Creat Clearance w eGFR Random Glucose Calcium Phosphorus Total Bilirubin AST ALT Alkaline Phosphatase Total Protein Albumin Tumor Marker AFP 1.4 Antibody ID (Elution) Crossmatch See Detail 10/31/16 10/31/16 10/31/16 05:00 05:00 05:00 WBC 7.9 RBC 2.78 L Hgb 8.7 L Hct 25.9 L MCV 93.1 MCHC 33.8 RDW 23.2 H Plt Count 30 L* MPV 12.2 H Neutrophils % 72.9 Lymphocytes % 22.8 D Monocytes % 3.8 Eosinophils % 0.0 Basophils % 0.5 Haptoglobin INR 1.49 H PTT (Actin FS) 42.3 H Puncture Site ABG pH ABG pCO2 at Pt Temp ABG pO2 at Pt Temp ABG HCO3 ABG O2 Sat (Measured) ABG O2 Content ABG Base Excess Ventura Test O2 Delivery Device Oxygen Flow Rate Vent Mode Vent Rate Mechanical Rate PEEP Pressure Support Vent Sodium 141 Potassium 3.9 Chloride 105 Carbon Dioxide 25 Anion Gap 11 BUN 31 H D Creatinine 2.9 H D Creat Clearance w eGFR 15.65 Random Glucose 102 Calcium 7.7 L Phosphorus 2.8 D Total Bilirubin 0.8 D AST 17 ALT 7 L D Alkaline Phosphatase 58 Total Protein 6.0 L Albumin 1.7 L Tumor Marker AFP Antibody ID (Elution) Crossmatch 10/31/16 07:10 WBC RBC Hgb Hct MCV MCHC RDW Plt Count MPV Neutrophils % Lymphocytes % Monocytes % Eosinophils % Basophils % Haptoglobin INR PTT (Actin FS) Puncture Site Right radial ABG pH 7.48 H ABG pCO2 at Pt Temp 31.4 L ABG pO2 at Pt Temp 156.0 H* D ABG HCO3 22.9 ABG O2 Sat (Measured) 97.6 ABG O2 Content 12.1 L ABG Base Excess 0.1 Ventura Test Positive O2 Delivery Device Vent Oxygen Flow Rate 35 Vent Mode A/c Vent Rate 15 Mechanical Rate Yes PEEP 5.0 Pressure Support Vent 350 Sodium Potassium Chloride Carbon Dioxide Anion Gap BUN Creatinine Creat Clearance w eGFR Random Glucose Calcium Phosphorus Total Bilirubin AST ALT Alkaline Phosphatase Total Protein Albumin Tumor Marker AFP Antibody ID (Elution) Crossmatch ASSESSMENT: 1. ESRD on HD 2. S/P cardiopulmonary arrest 3. acute respiratory failure 4. HCAP 5. R LE DVT (Now S/P IVC) 6. S/P Seizure following the arrest 7. Right renal complex cyst > 5cms in diameter 8. Anemia 9. Thrombocytopenia 10. H/O HCV 11. active GIB 12. A-fib PLAN: -Cont mechanical ventilation - daily SBT -Hold sedation to assess mental status -Nebs -Normal Transfusion Thresholds -Cont Vanc & Cefe (HCAP) -Pressors for MAP 65-75 - wean as able -Rate control as needed -HD per Renal -Keppra -Hold off on AC in the setting of profound thrombocytopenia +/- DIC -Enteral feeds -PPI -HD per Renal CCTime 35" Dr Gonzalez
--- NOTE | 2016-10-31 14:03 | PN ---
Progress Note, Physician History of Present Illness: Awake on ventilator No acute distress Afebrile Receiving hemodialysis - Current Medication List Current Medications: Active Medications Pantoprazole Sodium 80 mg/ (Sodium Chloride) 100 mls @ 10 mls/hr IVPB Q10H [facility] PRN Reason: 8 MG/HR Last Admin: 10/31/16 08:04 Dose: 10 mls/hr Cefepime HCl 0.5 gm/ Dextrose 50 mls @ 100 mls/hr IVPB DAILY [facility] Last Admin: 10/31/16 09:55 Dose: 100 mls/hr Fluconazole (Diflucan 100 Mg/D5w Premixed Ivpb -) 50 mls @ 50 mls/hr IVPB Q2D@ 1000 MARIE Last Admin: 10/31/16 09:55 Dose: 50 mls/hr Propofol (Diprivan -) 100 mls @ 1.28 mls/hr IVPB TITR MARIE; 5 MCG/KG/MIN PRN Reason: Protocol Last Admin: 10/30/16 23:00 Dose: 2.56 mls/hr Fentanyl 500 mcg/ Dextrose 100 mls @ 5 mls/hr IJ TITR MARIE PRN Reason: 25 MCG/HR Last Admin: 10/30/16 21:15 Dose: Not Given Norepinephrine Bitartrate 8, (000 mcg/ Dextrose) 250 mls @ 9.37 mls/hr IV TITR MARIE; 5 MCG/MIN PRN Reason: Protocol Last Admin: 10/30/16 21:13 Dose: 3.75 mls/hr Levetiracetam (Keppra Injection -) 500 mg IVPB BID [facility] Last Admin: 10/31/16 09:55 Dose: 500 mg - Objective Vital Signs: Vital Signs Temperature 97.9 F 10/31/16 10:00 Pulse Rate 90 10/31/16 12:00 Respiratory Rate 15 10/31/16 13:57 Blood Pressure 100/64 10/31/16 12:00 O2 Sat by Pulse Oximetry (%) 100 10/31/16 09:08 Constitutional: Yes: No Distress Eyes: Yes: Conjunctiva Clear Neck: Yes: Supple Cardiovascular: Yes: S1, S2 Respiratory: Yes: Mechanically Ventilated Gastrointestinal: Yes: Normal Bowel Sounds, Soft. No: Tenderness Edema: Yes Labs: CBC, BMP 10/31/16 05:00 10/31/16 05:00 INR, PTT INR 1.49 (0.82-1.09) H 10/31/16 05:00 Fibrinogen 111.0 mg/dL (238-498) L 10/28/16 13:40 Assessment/Plan S/P cardiopulmonary arrest/ respiratory failure - re-intubated Possible sepsis/ DIC ESRD Cirrhosis Empiric cefepime Fluconazole for vulvovaginal tom Continue ventilatory support Prognosis guarded
--- NOTE | 2016-10-31 14:14 | PN ---
Progress Note, Physician History of Present Illness: Pt seen and examined at bedside. She remains in the ICU. Pt remains intubated. - Current Medication List Current Medications: Active Medications Pantoprazole Sodium 80 mg/ (Sodium Chloride) 100 mls @ 10 mls/hr IVPB Q10H [facility] PRN Reason: 8 MG/HR Last Admin: 10/31/16 08:04 Dose: 10 mls/hr Cefepime HCl 0.5 gm/ Dextrose 50 mls @ 100 mls/hr IVPB DAILY [facility] Last Admin: 10/31/16 09:55 Dose: 100 mls/hr Fluconazole (Diflucan 100 Mg/D5w Premixed Ivpb -) 50 mls @ 50 mls/hr IVPB Q2D@ 1000 MARIE Last Admin: 10/31/16 09:55 Dose: 50 mls/hr Propofol (Diprivan -) 100 mls @ 1.28 mls/hr IVPB TITR MARIE; 5 MCG/KG/MIN PRN Reason: Protocol Last Admin: 10/30/16 23:00 Dose: 2.56 mls/hr Fentanyl 500 mcg/ Dextrose 100 mls @ 5 mls/hr IJ TITR MARIE PRN Reason: 25 MCG/HR Last Admin: 10/30/16 21:15 Dose: Not Given Norepinephrine Bitartrate 8, (000 mcg/ Dextrose) 250 mls @ 9.37 mls/hr IV TITR MARIE; 5 MCG/MIN PRN Reason: Protocol Last Admin: 10/30/16 21:13 Dose: 3.75 mls/hr Levetiracetam (Keppra Injection -) 500 mg IVPB BID [facility] Last Admin: 10/31/16 09:55 Dose: 500 mg - Objective Vital Signs: Vital Signs Temperature 97.9 F 10/31/16 10:00 Pulse Rate 90 10/31/16 12:00 Respiratory Rate 15 10/31/16 13:57 Blood Pressure 100/64 10/31/16 12:00 O2 Sat by Pulse Oximetry (%) 100 10/31/16 09:08 Constitutional: Yes: Calm Eyes: Yes: Conjunctiva Clear HENT: Yes: Atraumatic Cardiovascular: Yes: S1, S2 Respiratory: Yes: Mechanically Ventilated Gastrointestinal: Yes: Soft Genitourinary: Yes: Incontinence Musculoskeletal: Yes: Muscle Weakness Edema: Yes Edema: LLE: Trace, RLE: Trace Neurological: Yes: Oriented Psychiatric: Yes: Oriented Labs: CBC, BMP 10/31/16 05:00 10/31/16 05:00 INR, PTT INR 1.49 (0.82-1.09) H 10/31/16 05:00 Fibrinogen 111.0 mg/dL (238-498) L 10/28/16 13:40 - ....Imaging Chest X-ray: Report Reviewed Problem List - Problems (1) Cardiopulmonary arrest Code(s): I46.9 - CARDIAC ARREST, CAUSE UNSPECIFIED (2) DVT (deep venous thrombosis) Code(s): I82.409 - ACUTE EMBOLISM AND THOMBOS UNSP DEEP VN UNSP LOWER EXTREMITY (3) ESRD (end stage renal disease) on dialysis Code(s): N18.6 - END STAGE RENAL DISEASE Z99.2 - DEPENDENCE ON RENAL DIALYSIS (4) HCV (hepatitis C virus) Code(s): B19.20 - UNSPECIFIED VIRAL HEPATITIS C WITHOUT HEPATIC COMA (5) Respiratory failure Code(s): J96.90 - RESPIRATORY FAILURE, UNSP, UNSP W HYPOXIA OR HYPERCAPNIA Assessment/Plan Current Medications Generic Name Dose Route Start Last Admin Trade Name Freq PRN Reason Stop Dose Admin Pantoprazole Sodium 80 mg/ 100 mls @ 10 mls/hr 10/26/16 17:00 10/31/16 08:04 Sodium Chloride IVPB 10 mls/hr Q10H MARIE Administration 8 MG/HR Cefepime HCl 0.5 gm/ Dextrose 50 mls @ 100 mls/hr 10/29/16 10:00 10/31/16 09:55 IVPB 100 mls/hr DAILY MARIE Administration Fluconazole 50 mls @ 50 mls/hr 10/29/16 12:00 10/31/16 09:55 Diflucan 100 Mg/D5w Premixed Ivpb - IVPB 50 mls/hr Q2D@1000 MARIE Administration Propofol 100 mls @ 1.28 mls/hr 10/29/16 13:00 10/30/16 23:00 Diprivan - IVPB 2.56 mls/hr TITR MARIE Administration Protocol 5 MCG/KG/MIN Fentanyl 500 mcg/ Dextrose 100 mls @ 5 mls/hr 10/29/16 21:15 10/30/16 21:15 IJ Not Given TITR MARIE 25 MCG/HR Norepinephrine Bitartrate 8, 250 mls @ 9.37 mls/hr 10/30/16 21:00 10/30/16 21: 13 000 mcg/ Dextrose IV 3.75 mls/hr TITR MARIE Administration Protocol 5 MCG/MIN Levetiracetam 500 mg 10/25/16 22:00 10/31/16 09:55 Keppra Injection - IVPB 500 mg BID MARIE Administration Impression 1. ESRD 2. s/p cardiopulmonary arrest 3. acute respiratory failure 4. Pneumonia 5. DVT of right leg 6. S/P Seizure following the arrest 7. Right renal complex cyst > 5cms in diameter 8. Anemia 9. Thrombocytopenia 10. H/O HCV 11. active GI bleed Plan - will arrange for HD today - discussed with ICU team - monitor blood pressure - cont vent support - monitor CBC - monitor platelets - monitor pulse ox Dr Espino
--- NOTE | 2016-10-31 15:31 | PN ---
Physical Exam: SUBJECTIVE: Patient seen and examined at bedside. Intubated and sedated. No overnight events. OBJECTIVE: Vital Signs Period Temp Pulse Resp BP Sys/Hodgson Pulse Ox Last 24 Hr 95.9 F-98.6 F 83-105 15-18 84-112/50-76 96-100 GENERAL:Intubated and sedated HEAD: Normal with no signs of trauma.Alopecia EYES: sclera anicteric, conjunctiva clear. No ptosis. ENT: Ears normal, nares patent, oropharynx clear without exudates, dry mucous membranes. NECK: supple,no jvd, intubated and LIJ in place LUNGS:Scattered rhonchi, Crackles @ L base HEART: Irregularly irregular. S1, S2 without murmur, rub or gallop. ABDOMEN: Soft, nontender, nondistended, EXTREMITIES: LUE dialysis fistula NEUROLOGICAL: unresponsive PSYCH: Normal mood, normal affect. SKIN: Warm, dry, normal turgor, no rashes or lesions noted Laboratory Results - last 24 hr 10/27/16 10/29/16 10/29/16 13:35 06:00 06:00 WBC RBC Hgb Hct MCV MCHC RDW Plt Count MPV Neutrophils % Lymphocytes % Monocytes % Eosinophils % Basophils % Haptoglobin 58 INR PTT (Actin FS) Puncture Site ABG pH ABG pCO2 at Pt Temp ABG pO2 at Pt Temp ABG HCO3 ABG O2 Sat (Measured) ABG O2 Content ABG Base Excess Ventura Test O2 Delivery Device Oxygen Flow Rate Vent Mode Vent Rate Mechanical Rate PEEP Pressure Support Vent Sodium Potassium Chloride Carbon Dioxide Anion Gap BUN Creatinine Creat Clearance w eGFR Random Glucose Calcium Phosphorus Total Bilirubin AST ALT Alkaline Phosphatase Total Protein Albumin Tumor Marker AFP 1.4 Crossmatch See Detail 10/31/16 10/31/16 10/31/16 05:00 05:00 05:00 WBC 7.9 RBC 2.78 L Hgb 8.7 L Hct 25.9 L MCV 93.1 MCHC 33.8 RDW 23.2 H Plt Count 30 L* MPV 12.2 H Neutrophils % 72.9 Lymphocytes % 22.8 D Monocytes % 3.8 Eosinophils % 0.0 Basophils % 0.5 Haptoglobin INR 1.49 H PTT (Actin FS) 42.3 H Puncture Site ABG pH ABG pCO2 at Pt Temp ABG pO2 at Pt Temp ABG HCO3 ABG O2 Sat (Measured) ABG O2 Content ABG Base Excess Ventura Test O2 Delivery Device Oxygen Flow Rate Vent Mode Vent Rate Mechanical Rate PEEP Pressure Support Vent Sodium 141 Potassium 3.9 Chloride 105 Carbon Dioxide 25 Anion Gap 11 BUN 31 H D Creatinine 2.9 H D Creat Clearance w eGFR 15.65 Random Glucose 102 Calcium 7.7 L Phosphorus 2.8 D Total Bilirubin 0.8 D AST 17 ALT 7 L D Alkaline Phosphatase 58 Total Protein 6.0 L Albumin 1.7 L Tumor Marker AFP Crossmatch 10/31/16 07:10 WBC RBC Hgb Hct MCV MCHC RDW Plt Count MPV Neutrophils % Lymphocytes % Monocytes % Eosinophils % Basophils % Haptoglobin INR PTT (Actin FS) Puncture Site Right radial ABG pH 7.48 H ABG pCO2 at Pt Temp 31.4 L ABG pO2 at Pt Temp 156.0 H* D ABG HCO3 22.9 ABG O2 Sat (Measured) 97.6 ABG O2 Content 12.1 L ABG Base Excess 0.1 Ventura Test Positive O2 Delivery Device Vent Oxygen Flow Rate 35 Vent Mode A/c Vent Rate 15 Mechanical Rate Yes PEEP 5.0 Pressure Support Vent 350 Sodium Potassium Chloride Carbon Dioxide Anion Gap BUN Creatinine Creat Clearance w eGFR Random Glucose Calcium Phosphorus Total Bilirubin AST ALT Alkaline Phosphatase Total Protein Albumin Tumor Marker AFP Crossmatch Active Medications Generic Name Dose Route Start Last Admin Trade Name Freq PRN Reason Stop Dose Admin Pantoprazole Sodium 80 mg/ 100 mls @ 10 mls/hr 10/26/16 17:00 10/31/16 08:04 Sodium Chloride IVPB 10 mls/hr Q10H MARIE Administration 8 MG/HR Cefepime HCl 0.5 gm/ Dextrose 50 mls @ 100 mls/hr 10/29/16 10:00 10/31/16 09:55 IVPB 100 mls/hr DAILY MARIE Administration Fluconazole 50 mls @ 50 mls/hr 10/29/16 12:00 10/31/16 09:55 Diflucan 100 Mg/D5w Premixed Ivpb - IVPB 50 mls/hr Q2D@1000 MARIE Administration Propofol 100 mls @ 1.28 mls/hr 10/29/16 13:00 10/30/16 23:00 Diprivan - IVPB 2.56 mls/hr TITR MARIE Administration Protocol 5 MCG/KG/MIN Fentanyl 500 mcg/ Dextrose 100 mls @ 5 mls/hr 10/29/16 21:15 10/30/16 21:15 IJ Not Given TITR MARIE 25 MCG/HR Norepinephrine Bitartrate 8, 250 mls @ 9.37 mls/hr 10/30/16 21:00 10/30/16 21: 13 000 mcg/ Dextrose IV 3.75 mls/hr TITR MARIE Administration Protocol 5 MCG/MIN Levetiracetam 500 mg 10/25/16 22:00 10/31/16 09:55 Keppra Injection - IVPB 500 mg BID MARIE Administration ASSESSMENT/PLAN: 80 yo F F with PMHx of HCV, HTN , ESRD (HD MWF) admitted to ICU s/p Cariopulmonary arrest. Intubated and sedated. Hospital DAY #10 Neuro: * Intubated and sedated * will stop sedation today -SBT * Continue Keppra 200mg PO BID * Pain control - morphine 2mg IV Q4PRN * Followed by Dr. Bianca Smith: * Intubated overnight for acute respiratory failure * maintain O2 sat >90% * maintain intubated today. * Duonebs TID * Aspiration precautions. ID: * Empiric cefepime * Fluconazole for vulvovaginal tom CV: * US shows RLE DVT - IVC filter * LIJ in place currently on NE @ 4 mcq for pressure support. * Echo shows normal LV size. Mildly reduced LV func with mild hypokinesis. Mild mitral valve thickening. Mild MR, Mild-Mod TR. Mod , mild AR, mild-mod CO, small pericardial effusion (<1cm). * No clear etiology of arrest will get CTA (-) for PE GI: * Dr. Carr consulted * thromobcytopenia persist. +/- DIC * transfusion transfusion thresholds. * AC stopped * protonix drip started. * HCV ab(+) Renal: * HD today as per Dr. Espino. * repeat CMP in AM * avoid nephrotoxins. Prophylaxis: * DVT-no AC due to acute bleed. IVC filter in place. * GI- Protonix drip F/E/N * NO IVF at this time * HD today * tube feeds -Jevity 1.5 for a total of 1500CC DISPO: Will continue to Monitor in ICU. Visit type - Emergency Visit Emergency Visit: Yes ED Registration Date: 10/22/16 Care time: The patient presented to the Emergency Department on the above date and was hospitalized for further evaluation of their emergent condition. - New Patient This patient is new to me today: No - Critical Care Critical Care patient: Yes Total Critical Care Time (in minutes): 32 Critical Care Statement: The care of this patient involved high complexity decision making to prevent further life threatening deterioration of the patient 's condition and/or to evalute & treat vital organ system(s) failure or risk of failure.
[2016-10-31] MEDS: PROPOFOL 100 ML IVPB SCH ×2 (17:02→21:37)
--- NOTE | 2016-10-31 17:46 | PN ---
Progress Note, Physician Chief Complaint: INTUBATED AWAKE WEANING TOLERATED OFF VENT - Current Medication List Current Medications: Active Medications Pantoprazole Sodium 80 mg/ (Sodium Chloride) 100 mls @ 10 mls/hr IVPB Q10H MARIE PRN Reason: 8 MG/HR Last Admin: 10/31/16 17:03 Dose: 10 mls/hr Cefepime HCl 0.5 gm/ Dextrose 50 mls @ 100 mls/hr IVPB DAILY [facility] Last Admin: 10/31/16 09:55 Dose: 100 mls/hr Fluconazole (Diflucan 100 Mg/D5w Premixed Ivpb -) 50 mls @ 50 mls/hr IVPB Q2D@ 1000 MARIE Last Admin: 10/31/16 09:55 Dose: 50 mls/hr Propofol (Diprivan -) 100 mls @ 1.28 mls/hr IVPB TITR MARIE; 5 MCG/KG/MIN PRN Reason: Protocol Last Admin: 10/31/16 17:02 Dose: Not Given Fentanyl 500 mcg/ Dextrose 100 mls @ 5 mls/hr IJ TITR MARIE PRN Reason: 25 MCG/HR Last Admin: 10/30/16 21:15 Dose: Not Given Norepinephrine Bitartrate 8, (000 mcg/ Dextrose) 250 mls @ 9.37 mls/hr IV TITR MARIE; 5 MCG/MIN PRN Reason: Protocol Last Admin: 10/30/16 21:13 Dose: 3.75 mls/hr Levetiracetam (Keppra Injection -) 500 mg IVPB BID [facility] Last Admin: 10/31/16 09:55 Dose: 500 mg - Objective Vital Signs: Vital Signs Temperature 96.1 F L 10/31/16 14:00 Pulse Rate 90 10/31/16 17:00 Respiratory Rate 16 10/31/16 17:00 Blood Pressure 120/58 10/31/16 17:00 O2 Sat by Pulse Oximetry (%) 100 10/31/16 09:08 Constitutional: Yes: Moderate Distress Eyes: Yes: WNL HENT: Yes: WNL Neck: Yes: WNL Cardiovascular: Yes: WNL Respiratory: Yes: Dullness, Mechanically Ventilated Gastrointestinal: Yes: WNL Genitourinary: Yes: Incontinence Musculoskeletal: Yes: Muscle Weakness Extremities: Yes: WNL Edema: No Peripheral Pulses WNL: Yes Integumentary: Yes: WNL Wound/Incision: Yes: Clean/Dry Neurological: Yes: Other ...Motor Strength: LLE, RLE Psychiatric: Yes: Other Labs: CBC, BMP 10/31/16 05:00 10/31/16 05:00 INR, PTT INR 1.49 (0.82-1.09) H 10/31/16 05:00 Fibrinogen 111.0 mg/dL (238-498) L 10/28/16 13:40 Problem List - Problems (1) Cardiopulmonary arrest Code(s): I46.9 - CARDIAC ARREST, CAUSE UNSPECIFIED (2) DVT (deep venous thrombosis) Code(s): I82.409 - ACUTE EMBOLISM AND THOMBOS UNSP DEEP VN UNSP LOWER EXTREMITY (3) ESRD (end stage renal disease) on dialysis Code(s): N18.6 - END STAGE RENAL DISEASE Z99.2 - DEPENDENCE ON RENAL DIALYSIS (4) HCV (hepatitis C virus) Code(s): B19.20 - UNSPECIFIED VIRAL HEPATITIS C WITHOUT HEPATIC COMA (5) Metabolic encephalopathy Code(s): G93.41 - METABOLIC ENCEPHALOPATHY (6) Pneumonia Code(s): J18.9 - PNEUMONIA, UNSPECIFIED ORGANISM (7) Respiratory failure Code(s): J96.90 - RESPIRATORY FAILURE, UNSP, UNSP W HYPOXIA OR HYPERCAPNIA Assessment/Plan WEAN OFF VENT TOLERATED MODIFIED BARIUM SHOWS HOLDING PHASE ON CHOPPED DIET WITH DYSPHAGIA PRECAUTIONS LABS IMPROVING RENAL FUNCTION PT EVAL AND BEDSIDE ROM IV ABX PER ID WILL NEED STRESS TEST AND CARDIAC CATH OUTPATIENT
--- NOTE | 2016-10-31 20:43 | PN ---
History of Present Illness: Intubated, sedated, on pressors - Medications/Allergies Allergies/Adverse Reactions: Allergies Allergy/AdvReac Type Severity Reaction Status Date / Time No Known Allergies Allergy Verified 10/21/16 23:46 Medications: Current Medications Pantoprazole Sodium 80 mg/ (Sodium Chloride) 100 mls @ 10 mls/hr IVPB Q10H MARIE PRN Reason: 8 MG/HR Last Admin: 10/31/16 17:03 Dose: 10 mls/hr Cefepime HCl 0.5 gm/ Dextrose 50 mls @ 100 mls/hr IVPB DAILY MARIE Last Admin: 10/31/16 09:55 Dose: 100 mls/hr Fluconazole (Diflucan 100 Mg/D5w Premixed Ivpb -) 50 mls @ 50 mls/hr IVPB Q2D@ 1000 MARIE Last Admin: 10/31/16 09:55 Dose: 50 mls/hr Propofol (Diprivan -) 100 mls @ 1.28 mls/hr IVPB TITR MARIE; 5 MCG/KG/MIN PRN Reason: Protocol Last Titration: 10/31/16 18:51 Dose: 10 mcg/kg/min Fentanyl 500 mcg/ Dextrose 100 mls @ 5 mls/hr IJ TITR MARIE PRN Reason: 25 MCG/HR Last Admin: 10/30/16 21:15 Dose: Not Given Norepinephrine Bitartrate 8, (000 mcg/ Dextrose) 250 mls @ 9.37 mls/hr IV TITR MARIE; 5 MCG/MIN PRN Reason: Protocol Last Admin: 10/30/16 21:13 Dose: 3.75 mls/hr Levetiracetam (Keppra Injection -) 500 mg IVPB BID MARIE Last Admin: 10/31/16 09:55 Dose: 500 mg - Objective Vital Signs: Vital Signs Temperature 96.1 F L 10/31/16 14:00 Pulse Rate 100 H 10/31/16 18:00 Respiratory Rate 15 10/31/16 19:10 Blood Pressure 122/73 10/31/16 18:00 O2 Sat by Pulse Oximetry (%) 100 10/31/16 19:01 Constitutional: Yes: No Distress Eyes: No: Sclera Icterus HENT: Yes: Other (intubated) Neck: Yes: Trachea Midline Cardiovascular: Yes: Other (irregular rhythm) Respiratory: Yes: Other (On ventilator, lungs clear anteriorly) Gastrointestinal: Yes: Soft Extremities: No: Cold, Cool, Cyanosis Edema: No Integumentary: No: Erythema, Jaundice, Pressure Ulcer Labs: CBC, BMP 10/31/16 05:00 10/31/16 05:00 Problem List - Problems (1) Cardiopulmonary arrest Assessment/Plan: S/P cardiorespiratory arrest followed by seizure. Remains intubated , sedated, on pressors. Code(s): I46.9 - CARDIAC ARREST, CAUSE UNSPECIFIED (2) DVT (deep venous thrombosis) Assessment/Plan: OFF a/c with severe thrombocytopenia Code(s): I82.409 - ACUTE EMBOLISM AND THOMBOS UNSP DEEP VN UNSP LOWER EXTREMITY (3) ESRD (end stage renal disease) on dialysis Code(s): N18.6 - END STAGE RENAL DISEASE Z99.2 - DEPENDENCE ON RENAL DIALYSIS (4) HCV (hepatitis C virus) Assessment/Plan: May be contributing to thrombocytopenia and coagulopathy. Code(s): B19.20 - UNSPECIFIED VIRAL HEPATITIS C WITHOUT HEPATIC COMA (5) Respiratory failure Assessment/Plan: Acute respiratory failure - intubated, sedated. on pressors. Per critical care team. Code(s): J96.90 - RESPIRATORY FAILURE, UNSP, UNSP W HYPOXIA OR HYPERCAPNIA (6) Pneumonia Assessment/Plan: Sepsis per ID antibiotics. Code(s): J18.9 - PNEUMONIA, UNSPECIFIED ORGANISM Assessment/Plan No active bleeding diathesis . Transfuse prn procedures or bleeding. Monitor coagulation studies.
[2016-10-31] MEDS: FENTANYL INJECTION 500 MCG in DEXTROSE 5%-WATER - 90 ML IJ SCH (21:24)
[2016-10-31] MEDS ORDERED: NOREPINEPHRINE BITARTRATE 4 MG/4 ML ML IV ONE (23:12)
[2016-11-01] MEDS: NOREPINEPHRINE BITARTRATE 8,000 MCG in DEXTROSE 5%-WATER - 242 ML IV SCH ×2 (01:00→21:30)
[2016-11-01] MEDS: PANTOPRAZOLE SODIUM 80 MG in SODIUM CHLORIDE 100 ML IVPB SCH ×2 (03:16→13:00)
[2016-11-01 06:02] LABS: BASOPHIL 0.2 % (0-2.0); EOSINOPHIL 0.1 % (0-4.5); MCH 32.3 pg (25.7-33.7); MCHC 34.3 g/dl (32.0-36.0); MEAN PLT VOLUME 13.3 fl (7.5-11.1); NEUTROPHILS 78.6 % (42.8-82.8); RDW 23.3 % (11.6-15.6); WHITE BLOOD COUNT 8.4 K/mm3 (4.0-10.0)
[2016-11-01 06:16] LABS: INR 1.46 (0.82-1.09)
[2016-11-01 06:19] LABS: ACTIVATED PTT 40.2 SECONDS (26.9-34.4)
[2016-11-01 06:23] LABS: PLATELET COUNT 31 K/MM3 (134-434)
[2016-11-01 06:32] LABS: ALBUMIN 1.7 g/dl (3.4-5.0); CALCIUM 7.4 mg/dL (8.5-10.1)
[2016-11-01 06:38] LABS: BILIRUBIN,TOTAL 0.5 mg/dL (0.2-1.0); CREATININE 2.2 mg/dL (0.55-1.02); PHOSPHOROUS 1.3 mg/dL (2.5-4.9); TOT PROT 5.9 g/dl (6.4-8.2)
[2016-11-01 06:54] LABS: FIBRINOGEN < 100.0 mg/dL (238-498)
[2016-11-01 07:35] LABS: ARTERIAL BLOOD GAS BASE EXCESS 3.6 meq/l (-2-2); ARTERIAL BLOOD GAS HCO3 27.3 meq/L (22-26); ARTERIAL BLOOD GAS pH 7.45 (7.35-7.45)
[2016-11-01 07:36] LABS: ALLENS TEST POSITIVE; ART PUNCT SITE RIGHT RADIAL; LPM/O2% 35%; MECH. VENT. YES; PT. ON O2? YES; TYPE OF O2 VENT; VENT RATE 15; VT/PRESS 350
--- NOTE | 2016-11-01 08:20 | PN ---
Progress Note, Physician Chief Complaint: AWAEK ALERT X 2 [address] INTUBATED ON VENT SUPPORT WILL CHANGE TO PAP AND EXTUBATE TOLERATED - Current Medication List Current Medications: Active Medications Pantoprazole Sodium 80 mg/ (Sodium Chloride) 100 mls @ 10 mls/hr IVPB Q10H MARIE PRN Reason: 8 MG/HR Last Admin: 11/01/16 03:16 Dose: 10 mls/hr Cefepime HCl 0.5 gm/ Dextrose 50 mls @ 100 mls/hr IVPB DAILY [facility] Last Admin: 10/31/16 09:55 Dose: 100 mls/hr Fluconazole (Diflucan 100 Mg/D5w Premixed Ivpb -) 50 mls @ 50 mls/hr IVPB Q2D@ 1000 MARIE Last Admin: 10/31/16 09:55 Dose: 50 mls/hr Propofol (Diprivan -) 100 mls @ 1.28 mls/hr IVPB TITR MARIE; 5 MCG/KG/MIN PRN Reason: Protocol Last Titration: 11/01/16 07:57 Dose: 0 mcg/kg/min Fentanyl 500 mcg/ Dextrose 100 mls @ 5 mls/hr IJ TITR MARIE PRN Reason: 25 MCG/HR Last Titration: 11/01/16 07:58 Dose: 0 mcg/hr Norepinephrine Bitartrate 8, (000 mcg/ Dextrose) 250 mls @ 9.37 mls/hr IV TITR MARIE; 5 MCG/MIN PRN Reason: Protocol Last Titration: 11/01/16 07:57 Dose: 3 mcg/min Potassium Chloride (Potassium Chloride 10 Meq Premix Ivpb -) 100 mls @ 100 mls/ hr IVPB Q60M [facility] Stop: 11/01/16 10:29 Levetiracetam (Keppra Injection -) 500 mg IVPB BID [facility] Last Admin: 10/31/16 21:37 Dose: 500 mg - Objective Vital Signs: Vital Signs Temperature 99.2 F 11/01/16 07:00 Pulse Rate 101 H 11/01/16 07:57 Respiratory Rate 15 11/01/16 07:00 Blood Pressure 105/58 11/01/16 07:57 O2 Sat by Pulse Oximetry (%) 100 10/31/16 22:00 Constitutional: Yes: Mild Distress Eyes: Yes: WNL HENT: Yes: WNL Neck: Yes: WNL Cardiovascular: Yes: WNL Respiratory: Yes: Mechanically Ventilated, Rhonchi Gastrointestinal: Yes: WNL Genitourinary: Yes: Incontinence Musculoskeletal: Yes: Muscle Weakness Edema: No Peripheral Pulses WNL: Yes Integumentary: Yes: WNL Wound/Incision: Yes: Clean/Dry Neurological: Yes: Pre-Existing Deficit, Weakness Psychiatric: Yes: Other Labs: CBC, BMP 11/01/16 05:15 11/01/16 05:15 INR, PTT INR 1.46 (0.82-1.09) H 11/01/16 05:15 Fibrinogen < 100.0 mg/dL (238-498) L* 11/01/16 05:15 Problem List - Problems (1) Cardiopulmonary arrest Code(s): I46.9 - CARDIAC ARREST, CAUSE UNSPECIFIED (2) DVT (deep venous thrombosis) Code(s): I82.409 - ACUTE EMBOLISM AND THOMBOS UNSP DEEP VN UNSP LOWER EXTREMITY (3) ESRD (end stage renal disease) on dialysis Code(s): N18.6 - END STAGE RENAL DISEASE Z99.2 - DEPENDENCE ON RENAL DIALYSIS (4) HCV (hepatitis C virus) Code(s): B19.20 - UNSPECIFIED VIRAL HEPATITIS C WITHOUT HEPATIC COMA (5) Metabolic encephalopathy Code(s): G93.41 - METABOLIC ENCEPHALOPATHY (6) Pneumonia Code(s): J18.9 - PNEUMONIA, UNSPECIFIED ORGANISM (7) Respiratory failure Code(s): J96.90 - RESPIRATORY FAILURE, UNSP, UNSP W HYPOXIA OR HYPERCAPNIA Assessment/Plan EXTUBATE PLANNED TODAY IF TOLERATED SEDATION OFF REPLETE KCL AND PHOS+ DVT PROPHYLAXIS SWALLOW EVAL OOB TO CHAIR PT
[2016-11-01] MEDS ORDERED: NAPH,MB-DB/K PH,MBDB POWDER PACKET PO ONE (09:00)
[2016-11-01] MEDS: KCL 10 MEQ IVPB 100 ML IVPB SCH ×2 (09:02→10:36)
[2016-11-01] MEDS: CEFEPIME 0.5 GM in DEXTROSE 5%-WATER - 50 ML IVPB SCH (09:03)
[2016-11-01] MEDS: levETIRAcetam 500 MG/5 ML INJECTION VIAL IVPB SCH ×2 (09:03→21:30)
--- NOTE | 2016-11-01 10:18 | PN ---
Physical Exam: SUBJECTIVE: Patient seen and examined at bedside. No overnight events. Intubated but off sedation. Responding to commands. Weaning trial today. OBJECTIVE: Vital Signs Period Temp Pulse Resp BP Sys/Hodgson Pulse Ox Last 24 Hr 96.1 F-99.2 F 90-122 15-20 74-122/40-73 99-100 GENERAL:Intubated and awake HEAD: Normal with no signs of trauma.Alopecia EYES: sclera anicteric, conjunctiva clear. No ptosis. ENT: Ears normal, nares patent, oropharynx clear without exudates, dry mucous membranes. NECK: supple,no jvd, intubated and LIJ in place LUNGS:Scattered rhonchi, Crackles @ L base HEART: Irregularly irregular. S1, S2 without murmur, rub or gallop. ABDOMEN: Soft, nontender, nondistended, EXTREMITIES: LUE dialysis fistula NEUROLOGICAL: unresponsive PSYCH: Normal mood, normal affect. SKIN: Warm, dry, normal turgor, no rashes or lesions noted Laboratory Results - last 24 hr 10/27/16 10/29/16 11/01/16 13:35 06:00 05:15 WBC 8.4 RBC 2.75 L Hgb 8.9 L Hct 25.8 L MCV 94.0 MCHC 34.3 RDW 23.3 H Plt Count 31 L* MPV 13.3 H Neutrophils % 78.6 Lymphocytes % 16.2 D Monocytes % 4.9 Eosinophils % 0.1 D Basophils % 0.2 Haptoglobin 58 INR PTT (Actin FS) Fibrinogen Puncture Site ABG pH ABG pCO2 at Pt Temp ABG pO2 at Pt Temp ABG HCO3 ABG O2 Sat (Measured) ABG O2 Content ABG Base Excess Ventura Test O2 Delivery Device Oxygen Flow Rate Vent Mode Vent Rate Mechanical Rate PEEP Pressure Support Vent Sodium Potassium Chloride Carbon Dioxide Anion Gap BUN Creatinine Creat Clearance w eGFR Random Glucose Calcium Phosphorus Total Bilirubin AST ALT Alkaline Phosphatase Total Protein Albumin Blood Type B POSITIVE Antibody Screen Positive H Antibody Identification Anti-e Antibody ID (Elution) Direct Antiglob Test Positive H Crossmatch See Detail Spec Expiration Date 11/01/16 11/01/16 11/01/16 05:15 05:15 07:15 WBC RBC Hgb Hct MCV MCHC RDW Plt Count MPV Neutrophils % Lymphocytes % Monocytes % Eosinophils % Basophils % Haptoglobin INR 1.46 H PTT (Actin FS) 40.2 H Fibrinogen < 100.0 L* Puncture Site Right radial ABG pH 7.45 ABG pCO2 at Pt Temp 39.9 D ABG pO2 at Pt Temp 142.0 H ABG HCO3 27.3 H ABG O2 Sat (Measured) 99.0 H ABG O2 Content 12.2 L ABG Base Excess 3.6 H Ventura Test Positive O2 Delivery Device Vent Oxygen Flow Rate 35% Vent Mode A/c Vent Rate 15 Mechanical Rate Yes PEEP 5.0 Pressure Support Vent 350 Sodium 143 Potassium 3.2 L Chloride 105 Carbon Dioxide 27 Anion Gap 11 BUN 23 H D Creatinine 2.2 H D Creat Clearance w eGFR 21.53 Random Glucose 176 H D Calcium 7.4 L Phosphorus 1.3 L D Total Bilirubin 0.5 D AST 35 D ALT 14 D Alkaline Phosphatase 70 D Total Protein 5.9 L Albumin 1.7 L Blood Type Antibody Screen Antibody Identification Antibody ID (Elution) Direct Antiglob Test Crossmatch Spec Expiration Date Active Medications Generic Name Dose Route Start Last Admin Trade Name Freq PRN Reason Stop Dose Admin Pantoprazole Sodium 80 mg/ 100 mls @ 10 mls/hr 10/26/16 17:00 11/01/16 03:16 Sodium Chloride IVPB 10 mls/hr Q10H MARIE Administration 8 MG/HR Fluconazole 50 mls @ 50 mls/hr 10/29/16 12:00 10/31/16 09:55 Diflucan 100 Mg/D5w Premixed Ivpb - IVPB 50 mls/hr Q2D@1000 MARIE Administration Propofol 100 mls @ 1.28 mls/hr 10/29/16 13:00 11/01/16 07:57 Diprivan - IVPB 0 mcg/kg/min TITR MARIE Titration Protocol 5 MCG/KG/MIN Fentanyl 500 mcg/ Dextrose 100 mls @ 5 mls/hr 10/29/16 21:15 11/01/16 07:58 IJ 0 mcg/hr TITR MARIE Titration 25 MCG/HR Norepinephrine Bitartrate 8, 250 mls @ 9.37 mls/hr 10/30/16 21:00 11/01/16 07: 57 000 mcg/ Dextrose IV 3 mcg/min TITR MARIE Titration Protocol 5 MCG/MIN Potassium Chloride 100 mls @ 100 mls/hr 11/01/16 09:00 11/01/16 09:02 Potassium Chloride 10 Meq Premix Ivpb - IVPB 11/01/16 10:59 100 mls/hr Q60M MARIE Administration Levetiracetam 500 mg 10/25/16 22:00 11/01/16 09:03 Keppra Injection - IVPB 500 mg BID MARIE Administration ASSESSMENT/PLAN: 80 yo F F with PMHx of HCV, HTN , ESRD (HD MWF) admitted to ICU s/p Cariopulmonary arrest. Intubated and sedated. Hospital DAY #11 Neuro: * Intubated but awake. * off sedation today -SBT * Continue Keppra 200mg PO BID * Pain control - morphine 2mg IV Q4PRN * Followed by Dr. Bianca Smith: * AC mechanical vent. 35% Fio2 rate 15 * maintain O2 sat >90% * maintain intubated today. * May need tracheostomy if not tolerating weaning trials. * Duonebs TID * Aspiration precautions. ID: * Will monitor off antibiotics. * spiked fever today * Matos - culture today * Fluconazole for vulvovaginal tom CV: * US showed RLE DVT on admission - IVC filter placed * LIJ in place currently on NE @ 5 mcq for pressure support- taper to maintain MAP < 65 * Echo shows normal LV size. Mildly reduced LV func with mild hypokinesis. Mild mitral valve thickening. Mild MR, Mild-Mod TR. Mod , mild AR, mild-mod MT, small pericardial effusion (<1cm). * No clear etiology of arrest will get CTA (-) for PE GI: * Dr. Carr consulted * thromobcytopenia persist. +/- DIC * will monitor coags. CBC, and fibrinogen. * transfusion prn for procedures and bleeding. * AC stopped * protonix drip continued * HCV ab(+) Renal: * HD tomorrow as per Dr. Espino. * removed 2.kilos yesterday. * repeat CMP in AM * avoid nephrotoxins. Prophylaxis: * DVT-no AC due to acute bleed. IVC filter in place. * GI- Protonix drip F/E/N * NO IVF at this time * HD tomorrow. * tube feeds -Jevity 1.5 for a total of 1500CC DISPO: Will continue to Monitor in ICU. Visit type - Emergency Visit Emergency Visit: Yes ED Registration Date: 10/22/16 Care time: The patient presented to the Emergency Department on the above date and was hospitalized for further evaluation of their emergent condition. - New Patient This patient is new to me today: No - Critical Care Critical Care patient: Yes Total Critical Care Time (in minutes): 32 Critical Care Statement: The care of this patient involved high complexity decision making to prevent further life threatening deterioration of the patient 's condition and/or to evalute & treat vital organ system(s) failure or risk of failure.
[2016-11-01] MEDS ORDERED: ACETAMINOPHEN 1000 MG/100 ML VIAL (NON FORMULARY) IVPB PRN (10:45)
[2016-11-01] MEDS: PROPOFOL 100 ML IVPB SCH (11:00)
--- NOTE | 2016-11-01 11:07 | PN ---
Progress Note, Physician History of Present Illness: Awake on ventilator Low grade temp this am No acute distress Hypotensive on pressors - Current Medication List Current Medications: Active Medications Acetaminophen (Ofirmev Injection -) 1,000 mg IVPB Q6H PRN PRN Reason: FEVER OR PAIN Stop: 11/02/16 04:46 Pantoprazole Sodium 80 mg/ (Sodium Chloride) 100 mls @ 10 mls/hr IVPB Q10H MARIE PRN Reason: 8 MG/HR Last Admin: 11/01/16 03:16 Dose: 10 mls/hr Fluconazole (Diflucan 100 Mg/D5w Premixed Ivpb -) 50 mls @ 50 mls/hr IVPB Q2D@ 1000 MARIE Last Admin: 10/31/16 09:55 Dose: 50 mls/hr Propofol (Diprivan -) 100 mls @ 1.28 mls/hr IVPB TITR MARIE; 5 MCG/KG/MIN PRN Reason: Protocol Last Titration: 11/01/16 07:57 Dose: 0 mcg/kg/min Fentanyl 500 mcg/ Dextrose 100 mls @ 5 mls/hr IJ TITR MARIE PRN Reason: 25 MCG/HR Last Titration: 11/01/16 07:58 Dose: 0 mcg/hr Norepinephrine Bitartrate 8, (000 mcg/ Dextrose) 250 mls @ 9.37 mls/hr IV TITR MARIE; 5 MCG/MIN PRN Reason: Protocol Last Titration: 11/01/16 07:57 Dose: 3 mcg/min Levetiracetam (Keppra Injection -) 500 mg IVPB BID MARIE Last Admin: 11/01/16 09:03 Dose: 500 mg - Objective Vital Signs: Vital Signs Temperature 100.1 F H 11/01/16 10:00 Pulse Rate 126 H 11/01/16 10:00 Respiratory Rate 15 11/01/16 10:00 Blood Pressure 124/81 11/01/16 10:00 O2 Sat by Pulse Oximetry (%) 100 11/01/16 09:25 Constitutional: Yes: No Distress, Cachectic Cardiovascular: Yes: Regular Rate and Rhythm, S1, S2 Respiratory: Yes: Mechanically Ventilated Gastrointestinal: Yes: Normal Bowel Sounds, Soft. No: Tenderness Edema: Yes Labs: CBC, BMP 11/01/16 05:15 11/01/16 05:15 INR, PTT INR 1.46 (0.82-1.09) H 11/01/16 05:15 Fibrinogen < 100.0 mg/dL (238-498) L* 11/01/16 05:15 Assessment/Plan S/P cardiopulmonary arrest/ respiratory failure - re-intubated Possible sepsis/ DIC ESRD Cirrhosis Continue empiric cefepime Fluconazole for vulvovaginal tom Continue ventilatory support/ pressors Prognosis guarded
[2016-11-01] MEDS ORDERED: METOPROLOL TARTRATE 5 MG/5 ML VIAL IVPUSH ONE (11:13)
--- NOTE | 2016-11-01 12:16 | PN ---
Progress Note, Physician History of Present Illness: Pt seen and examined at bedside. She remains in the ICU. She is getting a weaning trial. - Current Medication List Current Medications: Active Medications Acetaminophen (Ofirmev Injection -) 1,000 mg IVPB Q6H PRN PRN Reason: FEVER OR PAIN Stop: 11/02/16 04:46 Pantoprazole Sodium 80 mg/ (Sodium Chloride) 100 mls @ 10 mls/hr IVPB Q10H MARIE PRN Reason: 8 MG/HR Last Admin: 11/01/16 03:16 Dose: 10 mls/hr Fluconazole (Diflucan 100 Mg/D5w Premixed Ivpb -) 50 mls @ 50 mls/hr IVPB Q2D@ 1000 MARIE Last Admin: 10/31/16 09:55 Dose: 50 mls/hr Propofol (Diprivan -) 100 mls @ 1.28 mls/hr IVPB TITR MARIE; 5 MCG/KG/MIN PRN Reason: Protocol Last Titration: 11/01/16 07:57 Dose: 0 mcg/kg/min Fentanyl 500 mcg/ Dextrose 100 mls @ 5 mls/hr IJ TITR MARIE PRN Reason: 25 MCG/HR Last Titration: 11/01/16 07:58 Dose: 0 mcg/hr Norepinephrine Bitartrate 8, (000 mcg/ Dextrose) 250 mls @ 9.37 mls/hr IV TITR MARIE; 5 MCG/MIN PRN Reason: Protocol Last Titration: 11/01/16 07:57 Dose: 3 mcg/min Levetiracetam (Keppra Injection -) 500 mg IVPB BID MARIE Last Admin: 11/01/16 09:03 Dose: 500 mg Metoprolol Tartrate (Lopressor Injection -) 5 mg IVPUSH ONCE ONE Stop: 11/01/16 11:14 Last Admin: 11/01/16 11:21 Dose: 5 mg - Objective Vital Signs: Vital Signs Temperature 100.1 F H 11/01/16 10:00 Pulse Rate 133 H 11/01/16 11:21 Respiratory Rate 15 11/01/16 11:35 Blood Pressure 133/85 11/01/16 11:21 O2 Sat by Pulse Oximetry (%) 100 11/01/16 09:25 Constitutional: Yes: Calm Eyes: Yes: Conjunctiva Clear HENT: Yes: Atraumatic Cardiovascular: Yes: S1, S2 Respiratory: Yes: Mechanically Ventilated Gastrointestinal: Yes: Soft Genitourinary: Yes: Incontinence Musculoskeletal: Yes: Muscle Weakness Edema: No Neurological: Yes: Other (awake) Labs: CBC, BMP 11/01/16 05:15 11/01/16 05:15 INR, PTT INR 1.46 (0.82-1.09) H 11/01/16 05:15 Fibrinogen < 100.0 mg/dL (238-498) L* 11/01/16 05:15 - ....Imaging Chest X-ray: Report Reviewed Problem List - Problems (1) Cardiopulmonary arrest Code(s): I46.9 - CARDIAC ARREST, CAUSE UNSPECIFIED (2) DVT (deep venous thrombosis) Code(s): I82.409 - ACUTE EMBOLISM AND THOMBOS UNSP DEEP VN UNSP LOWER EXTREMITY (3) ESRD (end stage renal disease) on dialysis Code(s): N18.6 - END STAGE RENAL DISEASE Z99.2 - DEPENDENCE ON RENAL DIALYSIS (4) HCV (hepatitis C virus) Code(s): B19.20 - UNSPECIFIED VIRAL HEPATITIS C WITHOUT HEPATIC COMA (5) Respiratory failure Code(s): J96.90 - RESPIRATORY FAILURE, UNSP, UNSP W HYPOXIA OR HYPERCAPNIA Assessment/Plan Current Medications Generic Name Dose Route Start Last Admin Trade Name Freq PRN Reason Stop Dose Admin Pantoprazole Sodium 80 mg/ 100 mls @ 10 mls/hr 10/26/16 17:00 10/31/16 08:04 Sodium Chloride IVPB 10 mls/hr Q10H MARIE Administration 8 MG/HR Cefepime HCl 0.5 gm/ Dextrose 50 mls @ 100 mls/hr 10/29/16 10:00 10/31/16 09:55 IVPB 100 mls/hr DAILY MARIE Administration Fluconazole 50 mls @ 50 mls/hr 10/29/16 12:00 10/31/16 09:55 Diflucan 100 Mg/D5w Premixed Ivpb - IVPB 50 mls/hr Q2D@1000 MARIE Administration Propofol 100 mls @ 1.28 mls/hr 10/29/16 13:00 10/30/16 23:00 Diprivan - IVPB 2.56 mls/hr TITR MARIE Administration Protocol 5 MCG/KG/MIN Fentanyl 500 mcg/ Dextrose 100 mls @ 5 mls/hr 10/29/16 21:15 10/30/16 21:15 IJ Not Given TITR MARIE 25 MCG/HR Norepinephrine Bitartrate 8, 250 mls @ 9.37 mls/hr 10/30/16 21:00 10/30/16 21: 13 000 mcg/ Dextrose IV 3.75 mls/hr TITR MARIE Administration Protocol 5 MCG/MIN Levetiracetam 500 mg 10/25/16 22:00 10/31/16 09:55 Keppra Injection - IVPB 500 mg BID MARIE Administration Impression 1. ESRD 2. s/p cardiopulmonary arrest 3. acute respiratory failure 4. Pneumonia 5. DVT of right leg 6. S/P Seizure following the arrest 7. Right renal complex cyst > 5cms in diameter 8. Anemia 9. Thrombocytopenia 10. H/O HCV 11. active GI bleed Plan - pt tolerated HD yesterday - cont management per ICU - discussed with ICU team - resume feeds if she fails that weaning trial - will arrange for HD tomorrow - monitor blood pressure - cont vent support, weaning per pulmonary - monitor CBC - monitor platelets Dr Espino
--- NOTE | 2016-11-01 12:44 | PN ---
Teaching Attending Note Name of Resident: Howard Shea ATTENDING PHYSICIAN STATEMENT I saw and evaluated the patient. I reviewed the resident's note and discussed the case with the resident. I agree with the resident's findings and plan as documented. SUBJECTIVE: Pt seen and examined in the ICU. Remains intubated, awake, follows commands but placed on CPAP/PS 8/5 and pt became tachypneic with accessory muscle use. Low grade temps. On low dose levophed support. OBJECTIVE: Last Vital Signs Temp Pulse Resp BP Pulse Ox 100.1 F H 133 H 15 133/85 100 11/01/16 10:00 11/01/16 11:21 11/01/16 11:35 11/01/16 11:21 11/01/16 09:25 Intake & Output 10/29/16 10/30/16 10/31/16 11/01/16 23:59 23:59 23:59 23:59 Intake Total 1444 287.3 2092.4 1161.2 Output Total 0 0 0 Balance 1444 287.3 2092.4 1161.2 Weight 94 lb 1 oz 98 lb 100 lb 2 oz 100 lb 4.965 oz Gen: intubated, awake Heart: tachycardic, regular Lung: scattered rhonchi Abd: soft, nontender Ext: no edema CBC, BMP 11/01/16 05:15 11/01/16 05:15 Active Medications Acetaminophen (Ofirmev Injection -) 1,000 mg IVPB Q6H PRN PRN Reason: FEVER OR PAIN Stop: 11/02/16 04:46 Pantoprazole Sodium 80 mg/ (Sodium Chloride) 100 mls @ 10 mls/hr IVPB Q10H MARIE PRN Reason: 8 MG/HR Last Admin: 11/01/16 03:16 Dose: 10 mls/hr Fluconazole (Diflucan 100 Mg/D5w Premixed Ivpb -) 50 mls @ 50 mls/hr IVPB Q2D@ 1000 MARIE Last Admin: 10/31/16 09:55 Dose: 50 mls/hr Propofol (Diprivan -) 100 mls @ 1.28 mls/hr IVPB TITR MARIE; 5 MCG/KG/MIN PRN Reason: Protocol Last Titration: 11/01/16 07:57 Dose: 0 mcg/kg/min Fentanyl 500 mcg/ Dextrose 100 mls @ 5 mls/hr IJ TITR MARIE PRN Reason: 25 MCG/HR Last Titration: 11/01/16 07:58 Dose: 0 mcg/hr Norepinephrine Bitartrate 8, (000 mcg/ Dextrose) 250 mls @ 9.37 mls/hr IV TITR MARIE; 5 MCG/MIN PRN Reason: Protocol Last Titration: 11/01/16 07:57 Dose: 3 mcg/min Levetiracetam (Keppra Injection -) 500 mg IVPB BID MARIE Last Admin: 11/01/16 09:03 Dose: 500 mg ASSESSMENT AND PLAN: s/p PEA Cardiopulmonary Arrest s/p Hypothermia Protocol Pneumonia Septic Shock Pulmonary HTN Lactic Acidosis resolved ESRD on HD r/o Anoxic Encephalopathy RLE distal DVT GI Bleed Thrombocytopenia r/o DIC - HD per renal with ultrafiltration - monitoring off antibiotics - reculture today - holding anticoagulation - monitor CBC, coags, fibrinogen level - transfuse as needed - taper levophed gtt, maintain MAP >65 - empiric antiepileptics per neuro - hold sedation in AM - spontaneous breathing trials as tolerated - may need tracheostomy if not tolerating weaning trials - DVT/GI prophylaxis - continue ICU monitoring
--- NOTE | 2016-11-01 17:26 | PN ---
Progress Note (short form) - Note Progress Note: Patient seen and examined intubated sedated Last Vital Signs Temp Pulse Resp BP Pulse Ox 100.1 F H 111 H 15 96/61 100 11/01/16 14:00 11/01/16 14:00 11/01/16 15:44 11/01/16 14:00 11/01/16 09:25 intubated Cor: RSR, No murmurs, No gallops Lungs: Clear to P&A Abd: Soft, Normal bowel sounds, No organomegaly Ext:No significant edema Abnormal Lab Results 10/27/16 11/01/16 11/01/16 13:35 05:15 05:15 RBC 2.75 L Hgb 8.9 L Hct 25.8 L RDW 23.3 H Plt Count 31 L* MPV 13.3 H INR PTT (Actin FS) Fibrinogen ABG pO2 at Pt Temp ABG HCO3 ABG O2 Sat (Measured) ABG O2 Content ABG Base Excess Potassium 3.2 L BUN 23 H D Creatinine 2.2 H D Random Glucose 176 H D Calcium 7.4 L Phosphorus 1.3 L D Total Protein 5.9 L Albumin 1.7 L Antibody Screen Positive H Direct Antiglob Test Positive H Crossmatch See Detail 11/01/16 11/01/16 05:15 07:15 RBC Hgb Hct RDW Plt Count MPV INR 1.46 H PTT (Actin FS) 40.2 H Fibrinogen < 100.0 L* ABG pO2 at Pt Temp 142.0 H ABG HCO3 27.3 H ABG O2 Sat (Measured) 99.0 H ABG O2 Content 12.2 L ABG Base Excess 3.6 H Potassium BUN Creatinine Random Glucose Calcium Phosphorus Total Protein Albumin Antibody Screen Direct Antiglob Test Crossmatch Current Medications Acetaminophen (Ofirmev Injection -) 700 mg IVPB Q6H PRN PRN Reason: FEVER OR PAIN Stop: 11/02/16 04:46 Pantoprazole Sodium 80 mg/ (Sodium Chloride) 100 mls @ 10 mls/hr IVPB Q10H MARIE PRN Reason: 8 MG/HR Last Admin: 11/01/16 03:16 Dose: 10 mls/hr Fluconazole (Diflucan 100 Mg/D5w Premixed Ivpb -) 50 mls @ 50 mls/hr IVPB Q2D@ 1000 MARIE Last Admin: 10/31/16 09:55 Dose: 50 mls/hr Propofol (Diprivan -) 100 mls @ 1.28 mls/hr IVPB TITR MARIE; 5 MCG/KG/MIN PRN Reason: Protocol Last Titration: 11/01/16 07:57 Dose: 0 mcg/kg/min Fentanyl 500 mcg/ Dextrose 100 mls @ 5 mls/hr IJ TITR MARIE PRN Reason: 25 MCG/HR Last Titration: 11/01/16 07:58 Dose: 0 mcg/hr Norepinephrine Bitartrate 8, (000 mcg/ Dextrose) 250 mls @ 9.37 mls/hr IV TITR MARIE; 5 MCG/MIN PRN Reason: Protocol Last Titration: 11/01/16 07:57 Dose: 3 mcg/min Levetiracetam (Keppra Injection -) 500 mg IVPB BID MARIE Last Admin: 11/01/16 09:03 Dose: 500 mg A/P Intubated 3 times this admission Pneumonia with respiratory failure S/P Seizure following the arrest- ESRD LE edema with severe hypoalbuminemia Right renal complex cyst > 5cms in diameter H/O HCV/liver disease H/O GIB Cachexia Soleal DVT Thrombocytopena/coagulopathy RLE distal DVT --had been on heparin. Bled actively rectally and hnce hparin was stopped. s/p ivc filter placement thrombocytopnia/coagulopathy --due to sepsis/DIC vrsus undrlying Hp. c liver disease . Will need FFP/platelets if actively bleeding. will transfuse cryoprecipitate as fibrinogen <100 anemia --bleeding plus chronic disease --ESRD/sepsis Abnormal CT--Lt. humrus dstructive lesion and hypodensities liver
--- NOTE | 2016-11-01 20:27 | PN ---
GI Progress Note Subjective: GASTROENTEROLOGY INTUBATED, NGT PASSED WITHOUT INCIDENT, FAILED WEANING ATTEMPTS TODAY, NO RECTAL BLEEDING OFF HEPARIN, IVC FILTER PLACED. - Objective Vital Signs: Vital Signs Temperature 100.1 F H 11/01/16 14:00 Pulse Rate 102 H 11/01/16 18:00 Respiratory Rate 15 11/01/16 18:35 Blood Pressure 92/42 11/01/16 18:00 O2 Sat by Pulse Oximetry (%) 100 11/01/16 09:25 Constitutional: Calm HENT: Yes: Atraumatic Neck: Yes: Supple Cardiovascular: Yes: Regular Rate and Rhythm Respiratory: Yes: Mechanically Ventilated, Rhonchi Gastrointestinal Inspection: Yes: WNL ...Auscultate: Yes: Normoactive Bowel Sounds ...Palpate: Yes: Soft, Splenomegaly Extremities: Yes: WNL Labs: CBC, BMP 11/01/16 05:15 11/01/16 05:15 INR, PTT INR 1.46 (0.82-1.09) H 11/01/16 05:15 Fibrinogen < 100.0 mg/dL (238-498) L* 11/01/16 05:15 Laboratory Tests 10/22/16 10/22/16 10/25/16 04:45 10:00 01:37 WBC RBC Hgb Hct MCV MCHC RDW Plt Count MPV Neutrophils % Lymphocytes % Monocytes % Eosinophils % Basophils % Sodium Potassium Chloride Carbon Dioxide Anion Gap BUN Creatinine Creat Clearance w eGFR Random Glucose Calcium Total Bilirubin AST ALT Alkaline Phosphatase Total Protein Stool Occult Blood Positive Hepatitis C Antibody >11.0 H HCV Quantitation [id number] HCV RNA (PCR) IUs/ml Y HCV Liver Fibrosis Test 5.536 10/26/16 10/26/16 10/30/16 15:30 21:30 07:00 WBC RBC Hgb Hct MCV MCHC RDW Plt Count MPV Neutrophils % Lymphocytes % Monocytes % Eosinophils % Basophils % Sodium Potassium Chloride Carbon Dioxide Anion Gap BUN Creatinine Creat Clearance w eGFR Random Glucose Calcium Total Bilirubin AST ALT Alkaline Phosphatase Total Protein Stool Occult Blood Positive Positive Positive Hepatitis C Antibody HCV Quantitation HCV RNA (PCR) IUs/ml HCV Liver Fibrosis Test 11/01/16 11/01/16 05:15 05:15 WBC 8.4 RBC 2.75 L Hgb 8.9 L Hct 25.8 L MCV 94.0 MCHC 34.3 RDW 23.3 H Plt Count 31 L* MPV 13.3 H Neutrophils % 78.6 Lymphocytes % 16.2 D Monocytes % 4.9 Eosinophils % 0.1 D Basophils % 0.2 Sodium 143 Potassium 3.2 L Chloride 105 Carbon Dioxide 27 Anion Gap 11 BUN 23 H D Creatinine 2.2 H D Creat Clearance w eGFR 21.53 Random Glucose 176 H D Calcium 7.4 L Total Bilirubin 0.5 D AST 35 D ALT 14 D Alkaline Phosphatase 70 D Total Protein 5.9 L Stool Occult Blood Hepatitis C Antibody HCV Quantitation HCV RNA (PCR) IUs/ml HCV Liver Fibrosis Test Problem List - Problems (1) GI bleeding Assessment/Plan: GI BLEEDING HAS STOPPED , SHE IS NOW INTUBATED, SEDATED AND IS ON PRESSORS. CONTINUE PROTONIX AND SUPPORTIVE CARE. IF BLEEDING CONTINUES WOULD NEED PLATELETS AND BLOOD. NGT PASSED WITH INCIDENT CONTINUE FEEDS,BEST SCENARIO WOULD BE TO GET HER EXTUBATED. PEG OR G TUBE PALCMENT MAY BE COMLICATED BY THROMBOCYTOPENIA AND POSSIBLE PORTAL HTN AND VARICES. ICU TIME 35 MINUTES Code(s): K92.2 - GASTROINTESTINAL HEMORRHAGE, UNSPECIFIED (2) Respiratory failure Assessment/Plan: FAILED ATTEMPT AT WEANING Code(s): J96.90 - RESPIRATORY FAILURE, UNSP, UNSP W HYPOXIA OR HYPERCAPNIA (3) HCV (hepatitis C virus) Code(s): B19.20 - UNSPECIFIED VIRAL HEPATITIS C WITHOUT HEPATIC COMA (4) Cardiopulmonary arrest Code(s): I46.9 - CARDIAC ARREST, CAUSE UNSPECIFIED (5) DVT (deep venous thrombosis) Code(s): I82.409 - ACUTE EMBOLISM AND THOMBOS UNSP DEEP VN UNSP LOWER EXTREMITY (6) ESRD (end stage renal disease) on dialysis Code(s): N18.6 - END STAGE RENAL DISEASE Z99.2 - DEPENDENCE ON RENAL DIALYSIS
[2016-11-01] MEDS: FENTANYL INJECTION 500 MCG in DEXTROSE 5%-WATER - 90 ML IJ SCH (21:30)
--- NOTE | 2016-11-01 23:04 | EKG ---
Test Reason : Blood Pressure : / mmHG Vent. Rate : 109 BPM Atrial Rate : 127 BPM P-R Int : 000 ms QRS Dur : 082 ms QT Int : 308 ms P-R-T Axes : 000 091 -36 degrees QTc Int : 414 ms POOR DATA QUALITY, INTERPRETATION MAY BE ADVERSELY AFFECTED ATRIAL FIBRILLATION WITH RAPID VENTRICULAR RESPONSE RIGHTWARD AXIS ANTERIOR INFARCT (CITED ON OR BEFORE 25-OCT-2016) T WAVE ABNORMALITY, CONSIDER INFERIOR ISCHEMIA ABNORMAL ECG WHEN COMPARED WITH ECG OF 25-OCT-2016 14:52, SIGNIFICANT CHANGES HAVE OCCURRED Confirmed by KEITH CASSIDY MD ([id number]) on 11/01/2016 11:04:22 PM Referred By: FATOU Confirmed By:KEITH CASSIDY MD
[2016-11-02 06:01] LABS: BASOPHIL 0.3 % (0-2.0); EOSINOPHIL 1.4 % (0-4.5); MCH 31.8 pg (25.7-33.7); MEAN CELL VOLUME 93.5 fl (80-96); MEAN PLT VOLUME 12.6 fl (7.5-11.1); NEUTROPHILS 75.7 % (42.8-82.8); RDW 22.8 % (11.6-15.6); WHITE BLOOD COUNT 7.6 K/mm3 (4.0-10.0)
[2016-11-02 06:32] LABS: INR 1.4 (0.82-1.09); PROTHROMBIN TIME (PATIENT) 15.5 SEC (9.98-11.88)
[2016-11-02 06:34] LABS: ACTIVATED PTT 46.3 SECONDS (26.9-34.4)
[2016-11-02 06:38] LABS: PLATELET COUNT 23 K/MM3 (134-434)
[2016-11-02 06:45] LABS: ALBUMIN 1.6 g/dl (3.4-5.0); CALCIUM 7.2 mg/dL (8.5-10.1)
[2016-11-02 06:50] LABS: BILIRUBIN,TOTAL 0.5 mg/dL (0.2-1.0); CREATININE 2.6 mg/dL (0.55-1.02); TOT PROT 5.6 g/dl (6.4-8.2)
[2016-11-02] MEDS: PANTOPRAZOLE SODIUM 80 MG in SODIUM CHLORIDE 100 ML IVPB SCH ×3 (06:55→20:00)
[2016-11-02 07:19] LABS: ARTERIAL BLD GAS O2 SATURATION 98.7 % (90-98.9); ARTERIAL BLOOD GAS BASE EXCESS 3.5 meq/l (-2-2); ARTERIAL BLOOD GAS HCO3 27.3 meq/L (22-26); ARTERIAL BLOOD GAS pH 7.45 (7.35-7.45)
[2016-11-02 07:20] LABS: ALLENS TEST POSITIVE; ART PUNCT SITE RIGHT RADIAL; LPM/O2% 35%; MECH. VENT. ESPRIT; PT. ON O2? YES; TYPE OF O2 MEC.VENT; VENT RATE 15; VT/PRESS 350
--- NOTE | 2016-11-02 08:11 | PN ---
Progress Note, Physician Chief Complaint: ID Remains intubated Off antibiotics ( cefepime) on diflucan Low grade fevers - Current Medication List Current Medications: Active Medications Pantoprazole Sodium 80 mg/ (Sodium Chloride) 100 mls @ 10 mls/hr IVPB Q10H MARIE PRN Reason: 8 MG/HR Last Admin: 11/02/16 06:55 Dose: Not Given Fluconazole (Diflucan 100 Mg/D5w Premixed Ivpb -) 50 mls @ 50 mls/hr IVPB Q2D@ 1000 MARIE Last Admin: 10/31/16 09:55 Dose: 50 mls/hr Propofol (Diprivan -) 100 mls @ 1.28 mls/hr IVPB TITR MARIE; 5 MCG/KG/MIN PRN Reason: Protocol Last Admin: 11/01/16 11:00 Dose: 7.7 mls/hr Fentanyl 500 mcg/ Dextrose 100 mls @ 5 mls/hr IJ TITR MARIE PRN Reason: 25 MCG/HR Last Admin: 11/01/16 21:30 Dose: 5 mls/hr Norepinephrine Bitartrate 8, (000 mcg/ Dextrose) 250 mls @ 9.37 mls/hr IV TITR MARIE; 5 MCG/MIN PRN Reason: Protocol Last Admin: 11/01/16 21:30 Dose: Not Given Levetiracetam (Keppra Injection -) 500 mg IVPB BID MARIE Last Admin: 11/01/16 21:30 Dose: 500 mg - Objective Vital Signs: Vital Signs Temperature 99.9 F H 11/02/16 06:00 Pulse Rate 122 H 11/02/16 06:00 Respiratory Rate 16 11/02/16 07:11 Blood Pressure 109/59 11/02/16 06:00 O2 Sat by Pulse Oximetry (%) 100 11/01/16 20:53 Constitutional: Yes: Other (INtubaed) Neck: Yes: Other (IV catheter left) Cardiovascular: Yes: S1, S2 Respiratory: Yes: Rhonchi Gastrointestinal: Yes: Soft. No: Tenderness Edema: No Labs: CBC, BMP 11/02/16 05:05 11/02/16 05:05 INR, PTT INR 1.40 (0.82-1.09) H 11/02/16 05:05 Fibrinogen 226.0 mg/dL (238-498) L D 11/02/16 05:05 Problem List - Problems (1) Cardiopulmonary arrest Code(s): I46.9 - CARDIAC ARREST, CAUSE UNSPECIFIED (2) ESRD (end stage renal disease) on dialysis Code(s): N18.6 - END STAGE RENAL DISEASE Z99.2 - DEPENDENCE ON RENAL DIALYSIS (3) Pneumonia Code(s): J18.9 - PNEUMONIA, UNSPECIFIED ORGANISM (4) Respiratory failure Code(s): J96.90 - RESPIRATORY FAILURE, UNSP, UNSP W HYPOXIA OR HYPERCAPNIA Assessment/Plan Microbiology 10/27/16 17:00 Sputum - Endotrachea Suction/Ventilator Gram Stain - Final 10/27/16 17:00 Sputum - Endotrachea Suction/Ventilator Sputum Culture - Final Yeast Like Organism 10/23/16 08:00 Sputum - Endotrachea Suction/Ventilator Gram Stain - Final 10/23/16 08:00 Sputum - Endotrachea Suction/Ventilator Sputum Culture - Final Yeast Like Organism 10/23/16 07:30 Sputum - Endotrachea Suction/Ventilator Gram Stain - Final 10/23/16 07:30 Sputum - Endotrachea Suction/Ventilator Sputum Culture - Final Yeast Like Organism Laboratory Tests 11/02/16 05:05 WBC 7.6 Hgb 7.9 L D Hct 23.4 L Plt Count 23 L* D Assessment Respiratory failure ESRD Multiple intubations Cardiopulmonary arrest Low grade fevers Colonized yeast on fluconazole Coagulopathy Hepatitis C ? cirrhosis ? Metastatic CA Plan Prognosis poor would continue antifungal prognosis remains poor Treat positive blood culture Helen ZHAO
[2016-11-02] MEDS: levETIRAcetam 500 MG/5 ML INJECTION VIAL IVPB SCH ×2 (09:10→21:16)
[2016-11-02] MEDS: FLUCONAZOLE 100 MG/D5W 50 ML IVPB SCH (09:11)
--- NOTE | 2016-11-02 09:30 | PN ---
Progress Note (short form) - Note Progress Note: Patient seen and examined in the ICU. Remains intubated and sedated. Remains on 3 mcq NE for hemodynamic support. Did not tolerate SBTs yesterday. CXR: ETT in position / no gross change in pulmonary vascular congestion OBJECTIVE: Intake & Output 10/30/16 10/31/16 11/01/16 11/02/16 23:59 23:59 23:59 23:59 Intake Total 287.3 2092.4 2658.2 364.0 Output Total 0 0 0 0 Balance 287.3 2092.4 2658.2 364.0 Weight 98 lb 100 lb 2 oz 100 lb 4.965 oz 105 lb 8 oz Last Vital Signs Temp Pulse Resp BP Pulse Ox 99.9 F H 101 H 16 100/51 100 11/02/16 06:00 11/02/16 08:00 11/02/16 08:00 11/02/16 08:00 11/01/16 20:53 Active Medications Albumin Human (Albumin Human 25% -) 12.5 gm IVPB Q30M MARIE Epoetin Cirilo (Epogen -) 3,000 units IVPUSH ONCE ONE Stop: 11/02/16 09:20 Pantoprazole Sodium 80 mg/ (Sodium Chloride) 100 mls @ 10 mls/hr IVPB Q10H MARIE PRN Reason: 8 MG/HR Last Admin: 11/02/16 06:55 Dose: Not Given Fluconazole (Diflucan 100 Mg/D5w Premixed Ivpb -) 50 mls @ 50 mls/hr IVPB Q2D@ 1000 MARIE Last Admin: 11/02/16 09:11 Dose: 50 mls/hr Propofol (Diprivan -) 100 mls @ 1.28 mls/hr IVPB TITR MARIE; 5 MCG/KG/MIN PRN Reason: Protocol Last Admin: 11/01/16 11:00 Dose: 7.7 mls/hr Fentanyl 500 mcg/ Dextrose 100 mls @ 5 mls/hr IJ TITR MARIE PRN Reason: 25 MCG/HR Last Admin: 11/01/16 21:30 Dose: 5 mls/hr Norepinephrine Bitartrate 8, (000 mcg/ Dextrose) 250 mls @ 9.37 mls/hr IV TITR MARIE; 5 MCG/MIN PRN Reason: Protocol Last Admin: 11/01/16 21:30 Dose: Not Given Levetiracetam (Keppra Injection -) 500 mg IVPB BID MARIE Last Admin: 11/02/16 09:10 Dose: 500 mg Gen: intubated, sedated Heart: tachycardic, regular Lung: scattered rhonchi Abd: soft, nontender Ext: no edema Laboratory Results - last 24 hr 11/02/16 11/02/16 11/02/16 05:05 05:05 05:05 WBC 7.6 RBC 2.50 L Hgb 7.9 L D Hct 23.4 L MCV 93.5 MCHC 34.0 RDW 22.8 H Plt Count 23 L* D MPV 12.6 H Neutrophils % 75.7 Lymphocytes % 14.0 Monocytes % 8.6 Eosinophils % 1.4 D Basophils % 0.3 INR 1.40 H PTT (Actin FS) 46.3 H Fibrinogen 226.0 L D Puncture Site ABG pH ABG pCO2 at Pt Temp ABG pO2 at Pt Temp ABG HCO3 ABG O2 Sat (Measured) ABG O2 Content ABG Base Excess Ventura Test O2 Delivery Device Oxygen Flow Rate Vent Mode Vent Rate Mechanical Rate PEEP Pressure Support Vent Sodium 140 Potassium 3.8 Chloride 103 Carbon Dioxide 30 Anion Gap 7 L BUN 30 H D Creatinine 2.6 H Creat Clearance w eGFR 17.76 Random Glucose 133 H D Calcium 7.2 L Total Bilirubin 0.5 AST 25 D ALT 12 Alkaline Phosphatase 70 Total Protein 5.6 L Albumin 1.6 L 11/02/16 07:05 WBC RBC Hgb Hct MCV MCHC RDW Plt Count MPV Neutrophils % Lymphocytes % Monocytes % Eosinophils % Basophils % INR PTT (Actin FS) Fibrinogen Puncture Site Right radial ABG pH 7.45 ABG pCO2 at Pt Temp 39.9 ABG pO2 at Pt Temp 127.0 H ABG HCO3 27.3 H ABG O2 Sat (Measured) 98.7 ABG O2 Content 11.5 L ABG Base Excess 3.5 H Ventura Test Positive O2 Delivery Device Mec.vent Oxygen Flow Rate 35% Vent Mode A/c Vent Rate 15 Mechanical Rate Esprit PEEP 5.0 Pressure Support Vent 350 Sodium Potassium Chloride Carbon Dioxide Anion Gap BUN Creatinine Creat Clearance w eGFR Random Glucose Calcium Total Bilirubin AST ALT Alkaline Phosphatase Total Protein Albumin ASSESSMENT AND PLAN: s/p PEA Cardiopulmonary Arrest s/p Hypothermia Protocol Pneumonia Septic Shock Pulmonary HTN Lactic Acidosis resolved ESRD on HD r/o Anoxic Encephalopathy RLE distal DVT GI Bleed Thrombocytopenia r/o DIC - HD per renal with ultrafiltration - monitoring off antibiotics per ID / On Diflucan - holding anticoagulation - monitor CBC, coags, fibrinogen level - Normal transfusion thresholds - taper levophed gtt, maintain MAP >65 - empiric antiepileptics per neuro - sedation vacations - spontaneous breathing trials as tolerated - may need tracheostomy if not tolerating weaning trials - DVT/GI prophylaxis Dr Gonzalez CCTime 35"
[2016-11-02] MEDS: ALBUMIN HUMAN 25% 100 ML VIAL IVPB SCH ×4 (11:30→13:00)
[2016-11-02] MEDS ORDERED: EPOETIN ALFA 3,000 UNIT/1 ML ML IVPUSH ONE (12:00)
[2016-11-02] MEDS: PROPOFOL 100 ML IVPB SCH (13:10)
[2016-11-02 14:52] LABS: SERUM IRON 39; TOTAL IRON BINDING CAPACITY 56; UIBC 17
--- NOTE | 2016-11-02 15:27 | PN ---
Progress Note, Physician History of Present Illness: Pt seen and examined at bedside. She remains in the ICU. She is currently getting HD. - Current Medication List Current Medications: Active Medications Pantoprazole Sodium 80 mg/ (Sodium Chloride) 100 mls @ 10 mls/hr IVPB Q10H MARIE PRN Reason: 8 MG/HR Last Admin: 11/02/16 10:34 Dose: 10 mls/hr Fluconazole (Diflucan 100 Mg/D5w Premixed Ivpb -) 50 mls @ 50 mls/hr IVPB Q2D@ 1000 MARIE Last Admin: 11/02/16 09:11 Dose: 50 mls/hr Propofol (Diprivan -) 100 mls @ 1.28 mls/hr IVPB TITR MARIE; 5 MCG/KG/MIN PRN Reason: Protocol Last Admin: 11/01/16 11:00 Dose: 7.7 mls/hr Fentanyl 500 mcg/ Dextrose 100 mls @ 5 mls/hr IJ TITR MARIE PRN Reason: 25 MCG/HR Last Admin: 11/01/16 21:30 Dose: 5 mls/hr Norepinephrine Bitartrate 8, (000 mcg/ Dextrose) 250 mls @ 9.37 mls/hr IV TITR MARIE; 5 MCG/MIN PRN Reason: Protocol Last Admin: 11/01/16 21:30 Dose: Not Given Levetiracetam (Keppra Injection -) 500 mg IVPB BID MARIE Last Admin: 11/02/16 09:10 Dose: 500 mg - Objective Vital Signs: Vital Signs Temperature 99.2 F 11/02/16 12:00 Pulse Rate 117 H 11/02/16 13:35 Respiratory Rate 20 11/02/16 13:50 Blood Pressure 104/73 11/02/16 13:35 O2 Sat by Pulse Oximetry (%) 100 11/02/16 12:30 Constitutional: Yes: Calm Eyes: Yes: Conjunctiva Clear HENT: Yes: Atraumatic Neck: Yes: Supple Cardiovascular: Yes: Tachycardia, S1, S2 Respiratory: Yes: Mechanically Ventilated Gastrointestinal: Yes: Soft Genitourinary: Yes: Incontinence Musculoskeletal: Yes: Muscle Weakness Edema: No Neurological: Yes: Lethargy, Other (sedated) Labs: CBC, BMP 11/02/16 05:05 11/02/16 05:05 INR, PTT INR 1.40 (0.82-1.09) H 11/02/16 05:05 Fibrinogen 226.0 mg/dL (238-498) L D 11/02/16 05:05 - ....Imaging Chest X-ray: Report Reviewed Problem List - Problems (1) Cardiopulmonary arrest Code(s): I46.9 - CARDIAC ARREST, CAUSE UNSPECIFIED (2) DVT (deep venous thrombosis) Code(s): I82.409 - ACUTE EMBOLISM AND THOMBOS UNSP DEEP VN UNSP LOWER EXTREMITY (3) ESRD (end stage renal disease) on dialysis Code(s): N18.6 - END STAGE RENAL DISEASE Z99.2 - DEPENDENCE ON RENAL DIALYSIS (4) HCV (hepatitis C virus) Code(s): B19.20 - UNSPECIFIED VIRAL HEPATITIS C WITHOUT HEPATIC COMA (5) Respiratory failure Code(s): J96.90 - RESPIRATORY FAILURE, UNSP, UNSP W HYPOXIA OR HYPERCAPNIA Assessment/Plan Current Medications Generic Name Dose Route Start Last Admin Trade Name Freq PRN Reason Stop Dose Admin Pantoprazole Sodium 80 mg/ 100 mls @ 10 mls/hr 10/26/16 17:00 11/02/16 10:34 Sodium Chloride IVPB 10 mls/hr Q10H MARIE Administration 8 MG/HR Fluconazole 50 mls @ 50 mls/hr 10/29/16 12:00 11/02/16 09:11 Diflucan 100 Mg/D5w Premixed Ivpb - IVPB 50 mls/hr Q2D@1000 MARIE Administration Propofol 100 mls @ 1.28 mls/hr 10/29/16 13:00 11/01/16 11:00 Diprivan - IVPB 7.7 mls/hr TITR MARIE Administration Protocol 5 MCG/KG/MIN Fentanyl 500 mcg/ Dextrose 100 mls @ 5 mls/hr 10/29/16 21:15 11/01/16 21:30 IJ 5 mls/hr TITR MARIE Administration 25 MCG/HR Norepinephrine Bitartrate 8, 250 mls @ 9.37 mls/hr 10/30/16 21:00 11/01/16 21: 30 000 mcg/ Dextrose IV Not Given TITR MARIE Protocol 5 MCG/MIN Levetiracetam 500 mg 10/25/16 22:00 11/02/16 09:10 Keppra Injection - IVPB 500 mg BID MARIE Administration Impression 1. ESRD 2. s/p cardiopulmonary arrest 3. acute respiratory failure 4. Pneumonia 5. DVT of right leg 6. S/P Seizure following the arrest 7. Right renal complex cyst > 5cms in diameter 8. Anemia 9. Thrombocytopenia 10. H/O HCV 11. active GI bleed Plan - pt is tolerating HD - follow up hit AB - discussed with ICU team - cxr reviewed, repeat in am - monitor blood pressure - cont vent support - monitor CBC - monitor platelets Dr Espino
[2016-11-02] MEDS ORDERED: NOREPINEPHRINE BITARTRATE 4 MG/4 ML ML IV ONE (18:04)
--- NOTE | 2016-11-02 18:33 | PN ---
Progress Note, Physician Chief Complaint: STILL INTUBATED SEDATED UNABLE TO WEAN AT THIS TIME - Current Medication List Current Medications: Active Medications Pantoprazole Sodium 80 mg/ (Sodium Chloride) 100 mls @ 10 mls/hr IVPB Q10H MARIE PRN Reason: 8 MG/HR Last Admin: 11/02/16 10:34 Dose: 10 mls/hr Fluconazole (Diflucan 100 Mg/D5w Premixed Ivpb -) 50 mls @ 50 mls/hr IVPB Q2D@ 1000 MARIE Last Admin: 11/02/16 09:11 Dose: 50 mls/hr Propofol (Diprivan -) 100 mls @ 1.28 mls/hr IVPB TITR MARIE; 5 MCG/KG/MIN PRN Reason: Protocol Last Admin: 11/01/16 11:00 Dose: 7.7 mls/hr Fentanyl 500 mcg/ Dextrose 100 mls @ 5 mls/hr IJ TITR MARIE PRN Reason: 25 MCG/HR Last Admin: 11/01/16 21:30 Dose: 5 mls/hr Norepinephrine Bitartrate 8, (000 mcg/ Dextrose) 250 mls @ 9.37 mls/hr IV TITR MARIE; 5 MCG/MIN PRN Reason: Protocol Last Admin: 11/01/16 21:30 Dose: Not Given Levetiracetam (Keppra Injection -) 500 mg IVPB BID MARIE Last Admin: 11/02/16 09:10 Dose: 500 mg - Objective Vital Signs: Vital Signs Temperature 100.8 F H 11/02/16 16:00 Pulse Rate 131 H 11/02/16 18:00 Respiratory Rate 18 11/02/16 18:00 Blood Pressure 92/62 11/02/16 18:00 O2 Sat by Pulse Oximetry (%) 100 11/02/16 12:30 Constitutional: Yes: Mild Distress Eyes: Yes: WNL HENT: Yes: WNL Neck: Yes: WNL Cardiovascular: Yes: WNL Respiratory: Yes: Mechanically Ventilated Gastrointestinal: Yes: WNL Musculoskeletal: Yes: Muscle Weakness Extremities: Yes: WNL Edema: Yes Integumentary: Yes: WNL Wound/Incision: Yes: Clean/Dry Neurological: Yes: Other Psychiatric: Yes: Other Labs: CBC, BMP 11/02/16 05:05 11/02/16 05:05 INR, PTT INR 1.40 (0.82-1.09) H 11/02/16 05:05 Fibrinogen 226.0 mg/dL (238-498) L D 11/02/16 05:05 Problem List - Problems (1) Cardiopulmonary arrest Code(s): I46.9 - CARDIAC ARREST, CAUSE UNSPECIFIED (2) DVT (deep venous thrombosis) Code(s): I82.409 - ACUTE EMBOLISM AND THOMBOS UNSP DEEP VN UNSP LOWER EXTREMITY (3) ESRD (end stage renal disease) on dialysis Code(s): N18.6 - END STAGE RENAL DISEASE Z99.2 - DEPENDENCE ON RENAL DIALYSIS (4) HCV (hepatitis C virus) Code(s): B19.20 - UNSPECIFIED VIRAL HEPATITIS C WITHOUT HEPATIC COMA (5) Metabolic encephalopathy Code(s): G93.41 - METABOLIC ENCEPHALOPATHY (6) Pneumonia Code(s): J18.9 - PNEUMONIA, UNSPECIFIED ORGANISM (7) Respiratory failure Code(s): J96.90 - RESPIRATORY FAILURE, UNSP, UNSP W HYPOXIA OR HYPERCAPNIA Assessment/Plan UNABLE TO WEAN OFF VENT SCHEDULE TRACHEOSTOMY AT THIS TIME DVT PROPHYLAXIS ABX
[2016-11-02] MEDS: ACETAMINOPHEN 1000 MG/100 ML VIAL (NON FORMULARY) IVPB SCH (18:44)
--- NOTE | 2016-11-02 23:24 | PN ---
Progress Note (short form) - Note Progress Note: Patient seen and examined intubated sedated Last Vital Signs Temp Pulse Resp BP Pulse Ox 99.8 F H 112 H 15 100/60 100 11/03/16 00:00 11/03/16 00:00 11/03/16 00:10 11/03/16 00:00 11/02/16 21:30 intubated Cor: RSR, No murmurs, No gallops Lungs: Clear to P&A Abd: Soft, Normal bowel sounds, No organomegaly Ext:No significant edema Abnormal Lab Results 11/02/16 11/02/16 11/02/16 05:05 05:05 05:05 RBC 2.50 L Hgb 7.9 L D Hct 23.4 L RDW 22.8 H Plt Count 23 L* D MPV 12.6 H INR 1.40 H PTT (Actin FS) 46.3 H Fibrinogen 226.0 L D ABG pO2 at Pt Temp ABG HCO3 ABG O2 Content ABG Base Excess Anion Gap 7 L BUN 30 H D Creatinine 2.6 H Random Glucose 133 H D Calcium 7.2 L Total Protein 5.6 L Albumin 1.6 L 11/02/16 07:05 RBC Hgb Hct RDW Plt Count MPV INR PTT (Actin FS) Fibrinogen ABG pO2 at Pt Temp 127.0 H ABG HCO3 27.3 H ABG O2 Content 11.5 L ABG Base Excess 3.5 H Anion Gap BUN Creatinine Random Glucose Calcium Total Protein Albumin Current Medications Acetaminophen (Ofirmev Injection -) 700 mg IVPB Q6H-IV MARIE Last Admin: 11/02/16 18:44 Dose: 700 mg Pantoprazole Sodium 80 mg/ (Sodium Chloride) 100 mls @ 10 mls/hr IVPB Q10H MARIE PRN Reason: 8 MG/HR Last Admin: 11/02/16 20:00 Dose: 10 mls/hr Fluconazole (Diflucan 100 Mg/D5w Premixed Ivpb -) 50 mls @ 50 mls/hr IVPB Q2D@ 1000 MARIE Last Admin: 11/02/16 09:11 Dose: 50 mls/hr Propofol (Diprivan -) 100 mls @ 1.28 mls/hr IVPB TITR MARIE; 5 MCG/KG/MIN PRN Reason: Protocol Last Admin: 11/02/16 13:10 Dose: 6.4 mls/hr Fentanyl 500 mcg/ Dextrose 100 mls @ 5 mls/hr IJ TITR MARIE PRN Reason: 25 MCG/HR Last Admin: 11/01/16 21:30 Dose: 5 mls/hr Norepinephrine Bitartrate 8, (000 mcg/ Dextrose) 250 mls @ 9.37 mls/hr IV TITR MARIE; 5 MCG/MIN PRN Reason: Protocol Last Admin: 11/01/16 21:30 Dose: Not Given Levetiracetam (Keppra Injection -) 500 mg IVPB BID MARIE Last Admin: 11/02/16 21:16 Dose: 500 mg A/P Intubated 3 times this admission Pneumonia with respiratory failure S/P Seizure following the arrest- ESRD LE edema with severe hypoalbuminemia Right renal complex cyst > 5cms in diameter H/O HCV/liver disease H/O GIB Cachexia Soleal DVT Thrombocytopena/coagulopathy RLE distal DVT --had been on heparin. Bled actively rectally and hnce hparin was stopped. s/p ivc filter placement thrombocytopnia/coagulopathy --due to sepsis/DIC vrsus undrlying Hp. c liver disease . Will need FFP/platelets if actively bleeding. s/p cryo--2/8 for fibrinoen <100 monitor platelts--transfuse for <[id number] vit k trial anemia --bleeding plus chronic disease --ESRD/sepsis Abnormal CT--Lt. humrus dstructive lesion and hypodensities liver
[2016-11-03] MEDS ORDERED: PROPOFOL 100 ML ONE (03:25)
[2016-11-03] MEDS: PROPOFOL 100 ML IVPB SCH ×3 (03:27→21:39)
[2016-11-03] MEDS: PANTOPRAZOLE SODIUM 80 MG in SODIUM CHLORIDE 100 ML IVPB SCH ×2 (05:24→15:55)
[2016-11-03] MEDS: FENTANYL INJECTION 500 MCG in DEXTROSE 5%-WATER - 90 ML IJ SCH ×2 (05:26→21:38)
[2016-11-03] MEDS: NOREPINEPHRINE BITARTRATE 8,000 MCG in DEXTROSE 5%-WATER - 242 ML IV SCH ×2 (05:27→21:30)
[2016-11-03] MEDS: ACETAMINOPHEN 1000 MG/100 ML VIAL (NON FORMULARY) IVPB SCH ×4 (05:29→21:38)
[2016-11-03 06:18] LABS: MCH 31.6 pg (25.7-33.7); MCHC 33.5 g/dl (32.0-36.0); MEAN CELL VOLUME 94.4 fl (80-96); PLATELET COUNT 42 K/MM3 (134-434); RDW 22.5 % (11.6-15.6); WHITE BLOOD COUNT 10.1 K/mm3 (4.0-10.0)
[2016-11-03 06:36] LABS: INR 1.47 (0.82-1.09); PROTHROMBIN TIME (PATIENT) 16.3 SEC (9.98-11.88)
[2016-11-03 06:38] LABS: ACTIVATED PTT 36.7 SECONDS (26.9-34.4)
[2016-11-03 07:07] LABS: ALBUMIN 1.6 g/dl (3.4-5.0); BILIRUBIN,TOTAL 0.6 mg/dL (0.2-1.0); CALCIUM 7.1 mg/dL (8.5-10.1); CREATININE 1.9 mg/dL (0.55-1.02); MAGNESIUM 1.3 mg/dL (1.8-2.4); TOT PROT 5.9 g/dl (6.4-8.2)
[2016-11-03 07:11] LABS: PHOSPHOROUS 1.1 mg/dL (2.5-4.9)
[2016-11-03 07:34] LABS: ARTERIAL BLD GAS O2 SATURATION 97.9 % (90-98.9); ARTERIAL BLOOD GAS BASE EXCESS 6.8 meq/l (-2-2); ARTERIAL BLOOD GAS HCO3 30.7 meq/L (22-26); ARTERIAL BLOOD GAS PO2 95.6 mmHg (70-100)
[2016-11-03 07:36] LABS: ALLENS TEST POSITIVE; ART PUNCT SITE RIGHT RADIAL; LPM/O2% 30%; MECH. VENT. ESPRIT; PT. ON O2? YES; TYPE OF O2 MEC.VENT; VENT RATE 15; VT/PRESS 300
[2016-11-03 07:37] LABS: ARTERIAL BLOOD GAS pH 7.47 (7.35-7.45)
--- NOTE | 2016-11-03 07:44 | PN ---
Progress Note, Physician Chief Complaint: ID Remains intubated ( for the 3rd time) Off all antibiotics Still requires pressors T max 100.8 Fluconazole - Current Medication List Current Medications: Active Medications Acetaminophen (Ofirmev Injection -) 700 mg IVPB Q6H-IV MARIE Last Admin: 11/03/16 05:29 Dose: Not Given Pantoprazole Sodium 80 mg/ (Sodium Chloride) 100 mls @ 10 mls/hr IVPB Q10H MARIE PRN Reason: 8 MG/HR Last Admin: 11/03/16 05:24 Dose: 10 mls/hr Fluconazole (Diflucan 100 Mg/D5w Premixed Ivpb -) 50 mls @ 50 mls/hr IVPB Q2D@ 1000 MARIE Last Admin: 11/02/16 09:11 Dose: 50 mls/hr Propofol (Diprivan -) 100 mls @ 1.28 mls/hr IVPB TITR MARIE; 5 MCG/KG/MIN PRN Reason: Protocol Last Admin: 11/03/16 03:27 Dose: 5.12 mls/hr Fentanyl 500 mcg/ Dextrose 100 mls @ 5 mls/hr IJ TITR MARIE PRN Reason: 25 MCG/HR Last Admin: 11/03/16 05:26 Dose: 5 mls/hr Norepinephrine Bitartrate 8, (000 mcg/ Dextrose) 250 mls @ 9.37 mls/hr IV TITR MARIE; 5 MCG/MIN PRN Reason: Protocol Last Admin: 11/03/16 05:27 Dose: 5.62 mls/hr Levetiracetam (Keppra Injection -) 500 mg IVPB BID MARIE Last Admin: 11/02/16 21:16 Dose: 500 mg - Objective Vital Signs: Vital Signs Temperature 98.8 F 11/03/16 06:00 Pulse Rate 104 H 11/03/16 06:00 Respiratory Rate 15 11/03/16 06:00 Blood Pressure 108/49 11/03/16 06:00 O2 Sat by Pulse Oximetry (%) 100 11/02/16 21:30 HENT: Yes: Other (Et tube) Neck: Yes: Other (Left IJ line) Cardiovascular: Yes: Regular Rate and Rhythm, S1, S2 Respiratory: Yes: WNL, Regular, CTA Bilaterally Gastrointestinal: Yes: WNL, Normal Bowel Sounds. No: Tenderness ...Rectal Exam: No: Inflammation Edema: No Labs: CBC, BMP 11/03/16 05:15 11/03/16 05:15 INR, PTT INR 1.47 (0.82-1.09) H 11/03/16 05:15 Fibrinogen 254.0 mg/dL (238-498) 11/03/16 05:15 Problem List - Problems (1) Cardiopulmonary arrest Code(s): I46.9 - CARDIAC ARREST, CAUSE UNSPECIFIED (2) ESRD (end stage renal disease) on dialysis Code(s): N18.6 - END STAGE RENAL DISEASE Z99.2 - DEPENDENCE ON RENAL DIALYSIS (3) Pneumonia Code(s): J18.9 - PNEUMONIA, UNSPECIFIED ORGANISM (4) Respiratory failure Code(s): J96.90 - RESPIRATORY FAILURE, UNSP, UNSP W HYPOXIA OR HYPERCAPNIA Assessment/Plan Microbiology 11/01/16 14:45 Sputum - Endotrachea Suction/Ventilator Gram Stain - Final 11/01/16 14:30 Blood - Peripheral Venous Blood Culture - Preliminary NO GROWTH OBTAINED AFTER 24 HOURS, INCUBATION TO CONTINUE FOR 4 DAYS. 11/01/16 14:30 Blood - Peripheral Venous Blood Culture - Preliminary NO GROWTH OBTAINED AFTER 24 HOURS, INCUBATION TO CONTINUE FOR 4 DAYS. Laboratory Tests 11/03/16 05:15 WBC 10.1 H D Plt Count 42 L D Assessment Respiratory failure ESRD Post cardiopulmonary arrest orriginally Reintubation 3 times Hepatitis C Cirrhosis Suspect metastatic CA Plan Stop diflucan Observe off antibiotics Helen ZHAO
[2016-11-03] MEDS: levETIRAcetam 500 MG/5 ML INJECTION VIAL IVPB SCH ×2 (09:06→21:41)
[2016-11-03] MEDS: NAPH,MB-DB/K PH,MBDB POWDER PACKET PO SCH (12:46)
[2016-11-03] MEDS ORDERED: MAGNESIUM SULF 50% (8.12 MEQ/2 ML-1 GM VIAL) IVPB ONE (13:00)
--- NOTE | 2016-11-03 13:14 | PN ---
Progress Note (short form) - Note Progress Note: Patient seen and examined in the ICU. Remains intubated and sedated. Remains on 4 mcq NE for hemodynamic support. Did not tolerate SBTs yesterday. CXR: ETT in position / mild increase in pulmonary vascular congestion OBJECTIVE: Intake & Output 10/31/16 11/01/16 11/02/16 11/03/16 23:59 23:59 23:59 23:59 Intake Total 2092.4 2658.2 1726.8 1027.6 Output Total 0 0 0 0 Balance 2092.4 2658.2 1726.8 1027.6 Weight 100 lb 2 oz 100 lb 4.965 oz 105 lb 8 oz 105 lb 8 oz Last Vital Signs Temp Pulse Resp BP Pulse Ox 98.8 F 112 H 19 116/61 99 11/03/16 06:00 11/03/16 10:20 11/03/16 11:42 11/03/16 08:00 11/03/16 10:20 Active Medications Acetaminophen (Ofirmev Injection -) 700 mg IVPB Q6H-IV MARIE Last Admin: 11/03/16 09:05 Dose: 700 mg Pantoprazole Sodium 80 mg/ (Sodium Chloride) 100 mls @ 10 mls/hr IVPB Q10H MARIE PRN Reason: 8 MG/HR Last Admin: 11/03/16 05:24 Dose: 10 mls/hr Fluconazole (Diflucan 100 Mg/D5w Premixed Ivpb -) 50 mls @ 50 mls/hr IVPB Q2D@ 1000 MARIE Last Admin: 11/02/16 09:11 Dose: 50 mls/hr Propofol (Diprivan -) 100 mls @ 1.28 mls/hr IVPB TITR MARIE; 5 MCG/KG/MIN PRN Reason: Protocol Last Admin: 11/03/16 03:27 Dose: 5.12 mls/hr Fentanyl 500 mcg/ Dextrose 100 mls @ 5 mls/hr IJ TITR MARIE PRN Reason: 25 MCG/HR Last Admin: 11/03/16 05:26 Dose: 5 mls/hr Norepinephrine Bitartrate 8, (000 mcg/ Dextrose) 250 mls @ 9.37 mls/hr IV TITR MARIE; 5 MCG/MIN PRN Reason: Protocol Last Admin: 11/03/16 05:27 Dose: 5.62 mls/hr Levetiracetam (Keppra Injection -) 500 mg IVPB BID [facility] Last Admin: 11/03/16 09:06 Dose: 500 mg Potassium Phos/Sodium Phos (Phos-Nak Packet -) 1 packet PO DAILY [facility] Last Admin: 11/03/16 12:46 Dose: 1 packet Gen: intubated, sedated Heart: tachycardic, regular Lung: scattered rhonchi Abd: soft, nontender Ext: no edema Laboratory Results - last 24 hr 10/22/16 10/27/16 11/03/16 04:45 13:35 05:15 WBC 10.1 H D RBC 2.65 L Hgb 8.4 L Hct 25.0 L MCV 94.4 MCHC 33.5 RDW 22.5 H Plt Count 42 L D MPV 12.0 H INR PTT (Actin FS) Fibrinogen Puncture Site ABG pH ABG pCO2 at Pt Temp ABG pO2 at Pt Temp ABG HCO3 ABG O2 Sat (Measured) ABG O2 Content ABG Base Excess Ventura Test O2 Delivery Device Oxygen Flow Rate Vent Mode Vent Rate Mechanical Rate PEEP Pressure Support Vent Sodium Potassium Chloride Carbon Dioxide Anion Gap BUN Creatinine Creat Clearance w eGFR Random Glucose Calcium Phosphorus Magnesium Iron 39 TIBC 56 Iron Saturation 70 Total Bilirubin AST ALT Alkaline Phosphatase Total Protein Albumin Hep B Core IgM Ab Negative Hepatitis Be Antibody Negative Hepatitis Be Antigen Negative 11/03/16 11/03/16 11/03/16 05:15 05:15 07:25 WBC RBC Hgb Hct MCV MCHC RDW Plt Count MPV INR 1.47 H PTT (Actin FS) 36.7 H Fibrinogen 254.0 Puncture Site Right radial ABG pH 7.47 H ABG pCO2 at Pt Temp 42.5 ABG pO2 at Pt Temp 95.6 D ABG HCO3 30.7 H ABG O2 Sat (Measured) 97.9 ABG O2 Content 11.4 L ABG Base Excess 6.8 H Ventura Test Positive O2 Delivery Device Mec.vent Oxygen Flow Rate 30% Vent Mode A/c Vent Rate 15 Mechanical Rate Esprit PEEP 5.0 Pressure Support Vent 300 Sodium 139 Potassium 3.5 Chloride 99 Carbon Dioxide 31 Anion Gap 9 BUN 21 H D Creatinine 1.9 H D Creat Clearance w eGFR 25.50 Random Glucose 114 H Calcium 7.1 L Phosphorus 1.1 L* Magnesium 1.3 L D Iron TIBC Iron Saturation Total Bilirubin 0.6 AST 26 ALT 12 Alkaline Phosphatase 72 Total Protein 5.9 L Albumin 1.6 L Hep B Core IgM Ab Hepatitis Be Antibody Hepatitis Be Antigen ASSESSMENT AND PLAN: s/p PEA Cardiopulmonary Arrest s/p Hypothermia Protocol Pneumonia Septic Shock Pulmonary HTN Lactic Acidosis resolved ESRD on HD r/o Anoxic Encephalopathy RLE distal DVT GI Bleed Thrombocytopenia r/o DIC - HD per renal with ultrafiltration - monitoring off antibiotics per ID / On Diflucan - holding anticoagulation - monitor CBC, coags, fibrinogen level - Normal transfusion thresholds - taper levophed gtt, maintain MAP >65 - empiric antiepileptics per neuro - sedation vacations - spontaneous breathing trials as tolerated - DVT/GI prophylaxis - Will most likely need tracheostomy, depending on family's GOC Dr Gonzalez CCTime 35"
--- NOTE | 2016-11-03 14:08 | PN ---
Progress Note, Physician Chief Complaint: INTUBATED STILL, AWAITING FAMILY DECISION ON POSSIBLE TRACHEOSTOMY - Current Medication List Current Medications: Active Medications Acetaminophen (Ofirmev Injection -) 700 mg IVPB Q6H-IV MARIE Last Admin: 11/03/16 09:05 Dose: 700 mg Pantoprazole Sodium 80 mg/ (Sodium Chloride) 100 mls @ 10 mls/hr IVPB Q10H MARIE PRN Reason: 8 MG/HR Last Admin: 11/03/16 05:24 Dose: 10 mls/hr Fluconazole (Diflucan 100 Mg/D5w Premixed Ivpb -) 50 mls @ 50 mls/hr IVPB Q2D@ 1000 MARIE Last Admin: 11/02/16 09:11 Dose: 50 mls/hr Propofol (Diprivan -) 100 mls @ 1.28 mls/hr IVPB TITR MARIE; 5 MCG/KG/MIN PRN Reason: Protocol Last Admin: 11/03/16 03:27 Dose: 5.12 mls/hr Fentanyl 500 mcg/ Dextrose 100 mls @ 5 mls/hr IJ TITR MARIE PRN Reason: 25 MCG/HR Last Admin: 11/03/16 05:26 Dose: 5 mls/hr Norepinephrine Bitartrate 8, (000 mcg/ Dextrose) 250 mls @ 9.37 mls/hr IV TITR MARIE; 5 MCG/MIN PRN Reason: Protocol Last Admin: 11/03/16 05:27 Dose: 5.62 mls/hr Levetiracetam (Keppra Injection -) 500 mg IVPB BID [facility] Last Admin: 11/03/16 09:06 Dose: 500 mg Potassium Phos/Sodium Phos (Phos-Nak Packet -) 1 packet PO DAILY [facility] Last Admin: 11/03/16 12:46 Dose: 1 packet - Objective Vital Signs: Vital Signs Temperature 98.8 F 11/03/16 06:00 Pulse Rate 78 11/03/16 12:00 Respiratory Rate 18 11/03/16 12:00 Blood Pressure 115/53 11/03/16 12:00 O2 Sat by Pulse Oximetry (%) 99 11/03/16 10:20 Constitutional: Yes: Mild Distress Eyes: Yes: WNL HENT: Yes: WNL Neck: Yes: WNL Cardiovascular: Yes: WNL Respiratory: Yes: Mechanically Ventilated Gastrointestinal: Yes: WNL Musculoskeletal: Yes: Muscle Weakness Extremities: Yes: WNL Edema: No Integumentary: Yes: WNL Wound/Incision: Yes: Clean/Dry Neurological: Yes: Other Labs: CBC, BMP 11/03/16 05:15 11/03/16 05:15 INR, PTT INR 1.47 (0.82-1.09) H 11/03/16 05:15 Fibrinogen 254.0 mg/dL (238-498) 11/03/16 05:15 Problem List - Problems (1) Cardiopulmonary arrest Code(s): I46.9 - CARDIAC ARREST, CAUSE UNSPECIFIED (2) DVT (deep venous thrombosis) Code(s): I82.409 - ACUTE EMBOLISM AND THOMBOS UNSP DEEP VN UNSP LOWER EXTREMITY (3) ESRD (end stage renal disease) on dialysis Code(s): N18.6 - END STAGE RENAL DISEASE Z99.2 - DEPENDENCE ON RENAL DIALYSIS (4) HCV (hepatitis C virus) Code(s): B19.20 - UNSPECIFIED VIRAL HEPATITIS C WITHOUT HEPATIC COMA (5) Metabolic encephalopathy Code(s): G93.41 - METABOLIC ENCEPHALOPATHY (6) Pneumonia Code(s): J18.9 - PNEUMONIA, UNSPECIFIED ORGANISM (7) Respiratory failure Code(s): J96.90 - RESPIRATORY FAILURE, UNSP, UNSP W HYPOXIA OR HYPERCAPNIA Assessment/Plan UNABLE TO WEAN OFF VENT SCHEDULE TRACHEOSTOMY AT THIS TIME AWAITING FAMILY DECISION SEDATION CONTINUED DVT PROPHYLAXIS ABX
--- NOTE | 2016-11-03 14:36 | PN ---
Progress Note, Physician History of Present Illness: Pt seen and examined at bedside. She remains in the ICU intubated. - Current Medication List Current Medications: Active Medications Acetaminophen (Ofirmev Injection -) 700 mg IVPB Q6H-IV MARIE Last Admin: 11/03/16 09:05 Dose: 700 mg Pantoprazole Sodium 80 mg/ (Sodium Chloride) 100 mls @ 10 mls/hr IVPB Q10H MARIE PRN Reason: 8 MG/HR Last Admin: 11/03/16 05:24 Dose: 10 mls/hr Fluconazole (Diflucan 100 Mg/D5w Premixed Ivpb -) 50 mls @ 50 mls/hr IVPB Q2D@ 1000 MARIE Last Admin: 11/02/16 09:11 Dose: 50 mls/hr Propofol (Diprivan -) 100 mls @ 1.28 mls/hr IVPB TITR MARIE; 5 MCG/KG/MIN PRN Reason: Protocol Last Admin: 11/03/16 03:27 Dose: 5.12 mls/hr Fentanyl 500 mcg/ Dextrose 100 mls @ 5 mls/hr IJ TITR MARIE PRN Reason: 25 MCG/HR Last Admin: 11/03/16 05:26 Dose: 5 mls/hr Norepinephrine Bitartrate 8, (000 mcg/ Dextrose) 250 mls @ 9.37 mls/hr IV TITR MARIE; 5 MCG/MIN PRN Reason: Protocol Last Admin: 11/03/16 05:27 Dose: 5.62 mls/hr Levetiracetam (Keppra Injection -) 500 mg IVPB BID [facility] Last Admin: 11/03/16 09:06 Dose: 500 mg Potassium Phos/Sodium Phos (Phos-Nak Packet -) 1 packet PO DAILY [facility] Last Admin: 11/03/16 12:46 Dose: 1 packet - Objective Vital Signs: Vital Signs Temperature 98.8 F 11/03/16 06:00 Pulse Rate 78 11/03/16 12:00 Respiratory Rate 16 11/03/16 14:15 Blood Pressure 115/53 11/03/16 12:00 O2 Sat by Pulse Oximetry (%) 99 11/03/16 10:20 Constitutional: Yes: Calm Eyes: Yes: Conjunctiva Clear HENT: Yes: Atraumatic Neck: Yes: Supple Cardiovascular: Yes: S1, S2 Respiratory: Yes: Mechanically Ventilated Genitourinary: Yes: Incontinence Musculoskeletal: Yes: Muscle Weakness Edema: No Neurological: Yes: Other (sedated) Labs: CBC, BMP 11/03/16 05:15 11/03/16 05:15 INR, PTT INR 1.47 (0.82-1.09) H 11/03/16 05:15 Fibrinogen 254.0 mg/dL (238-498) 11/03/16 05:15 - ....Imaging Chest X-ray: Report Reviewed Problem List - Problems (1) Cardiopulmonary arrest Code(s): I46.9 - CARDIAC ARREST, CAUSE UNSPECIFIED (2) DVT (deep venous thrombosis) Code(s): I82.409 - ACUTE EMBOLISM AND THOMBOS UNSP DEEP VN UNSP LOWER EXTREMITY (3) ESRD (end stage renal disease) on dialysis Code(s): N18.6 - END STAGE RENAL DISEASE Z99.2 - DEPENDENCE ON RENAL DIALYSIS (4) HCV (hepatitis C virus) Code(s): B19.20 - UNSPECIFIED VIRAL HEPATITIS C WITHOUT HEPATIC COMA (5) Respiratory failure Code(s): J96.90 - RESPIRATORY FAILURE, UNSP, UNSP W HYPOXIA OR HYPERCAPNIA Assessment/Plan Current Medications Generic Name Dose Route Start Last Admin Trade Name Freq PRN Reason Stop Dose Admin Acetaminophen 700 mg 11/02/16 18:45 11/03/16 09:05 Ofirmev Injection - IVPB 700 mg Q6H-IV MARIE Administration Pantoprazole Sodium 80 mg/ 100 mls @ 10 mls/hr 10/26/16 17:00 11/03/16 05:24 Sodium Chloride IVPB 10 mls/hr Q10H MARIE Administration 8 MG/HR Fluconazole 50 mls @ 50 mls/hr 10/29/16 12:00 11/02/16 09:11 Diflucan 100 Mg/D5w Premixed Ivpb - IVPB 50 mls/hr Q2D@1000 MARIE Administration Propofol 100 mls @ 1.28 mls/hr 10/29/16 13:00 11/03/16 03:27 Diprivan - IVPB 5.12 mls/hr TITR MARIE Administration Protocol 5 MCG/KG/MIN Fentanyl 500 mcg/ Dextrose 100 mls @ 5 mls/hr 10/29/16 21:15 11/03/16 05:26 IJ 5 mls/hr TITR MARIE Administration 25 MCG/HR Norepinephrine Bitartrate 8, 250 mls @ 9.37 mls/hr 10/30/16 21:00 11/03/16 05: 27 000 mcg/ Dextrose IV 5.62 mls/hr TITR MARIE Administration Protocol 5 MCG/MIN Levetiracetam 500 mg 10/25/16 22:00 11/03/16 09:06 Keppra Injection - IVPB 500 mg BID MARIE Administration Potassium Phos/Sodium Phos 1 packet 11/03/16 12:15 11/03/16 12:46 Phos-Nak Packet - PO 1 packet DAILY [facility]IE Administration Laboratory Tests 11/03/16 05:15 Phosphorus 1.1 L* Magnesium 1.3 L D Impression 1. ESRD 2. s/p cardiopulmonary arrest 3. acute respiratory failure 4. Pneumonia 5. DVT of right leg 6. S/P Seizure following the arrest 7. Right renal complex cyst > 5cms in diameter 8. Anemia 9. Thrombocytopenia 10. H/O HCV 11. active GI bleed Plan - will arrange for HD in am - replace phos - replace mag - cxr reviewed, repeat in am - discussed with ICU team - cont vent support - monitor CBC - monitor platelets Dr Espino
--- NOTE | 2016-11-03 16:41 | PN ---
GI Progress Note Subjective: GASTROENTEROLOGY FAILED WEANING AGAIN TODAY STILL ON NE FOR HEMODYNAMIC SUPPORT NO BLEEDING TOLERATES NGT FEEDING - Objective Vital Signs: Vital Signs Temperature 99 F 11/03/16 14:00 Pulse Rate 82 11/03/16 16:00 Respiratory Rate 18 11/03/16 16:12 Blood Pressure 103/45 11/03/16 16:00 O2 Sat by Pulse Oximetry (%) 99 11/03/16 16:12 Constitutional: Calm Eyes: Yes: Conjunctiva Clear HENT: Yes: WNL Cardiovascular: Yes: Regular Rate and Rhythm Respiratory: Yes: Mechanically Ventilated, Rhonchi ...Auscultate: Yes: Normoactive Bowel Sounds ...Palpate: Yes: Soft Extremities: Yes: WNL Labs: CBC, BMP 11/03/16 05:15 11/03/16 05:15 INR, PTT INR 1.47 (0.82-1.09) H 11/03/16 05:15 Fibrinogen 254.0 mg/dL (238-498) 11/03/16 05:15 Laboratory Tests 11/03/16 11/03/16 11/03/16 05:15 05:15 05:15 WBC 10.1 H D RBC 2.65 L Hgb 8.4 L Hct 25.0 L MCV 94.4 MCHC 33.5 RDW 22.5 H Plt Count 42 L D INR 1.47 H Sodium 139 Potassium 3.5 Chloride 99 Carbon Dioxide 31 Anion Gap 9 BUN 21 H D Creatinine 1.9 H D Random Glucose 114 H Total Bilirubin 0.6 AST 26 ALT 12 Alkaline Phosphatase 72 Problem List - Problems (1) GI bleeding Assessment/Plan: GI BLEEDING HAS STOPPED , SHE IS NOW INTUBATED, SEDATED AND IS ON PRESSORS. CONTINUE PROTONIX AND SUPPORTIVE CARE. IF BLEEDING CONTINUES WOULD NEED PLATELETS AND BLOOD. NGT PASSED WITH INCIDENT CONTINUE FEEDS,BEST SCENARIO WOULD BE TO GET HER EXTUBATED. PEG OR G TUBE PLACEMENT MAY BE COMPLICATED BY THROMBOCYTOPENIA AND POSSIBLE PORTAL HTN AND VARICES. ICU TIME 30 MINUTES Code(s): K92.2 - GASTROINTESTINAL HEMORRHAGE, UNSPECIFIED (2) Respiratory failure Code(s): J96.90 - RESPIRATORY FAILURE, UNSP, UNSP W HYPOXIA OR HYPERCAPNIA (3) HCV (hepatitis C virus) Assessment/Plan: NO TREATABLE Code(s): B19.20 - UNSPECIFIED VIRAL HEPATITIS C WITHOUT HEPATIC COMA (4) Cardiopulmonary arrest Code(s): I46.9 - CARDIAC ARREST, CAUSE UNSPECIFIED (5) DVT (deep venous thrombosis) Assessment/Plan: S/P IVC FILTER Code(s): I82.409 - ACUTE EMBOLISM AND THOMBOS UNSP DEEP VN UNSP LOWER EXTREMITY (6) ESRD (end stage renal disease) on dialysis Code(s): N18.6 - END STAGE RENAL DISEASE Z99.2 - DEPENDENCE ON RENAL DIALYSIS
--- NOTE | 2016-11-03 17:59 | PN ---
Progress Note (short form) - Note Progress Note: Patient seen and examined Remains intubated , sedated, on pressors. No further GI bleeding Weaning attempts have been unsuccessful Last Vital Signs Temp Pulse Resp BP Pulse Ox 99 F 82 18 103/45 99 11/03/16 14:00 11/03/16 16:00 11/03/16 16:12 11/03/16 16:00 11/03/16 16:12 HEENT: JUAN, EOM Intact Intubated Cor: RSR, No murmurs, No gallops Lungs:diminished breath sounds Abd: Soft, Normal bowel sounds, No organomegaly, distended Ext:No significant edema Skin: No rashes, Integument intact CBC, BMP 11/03/16 05:15 11/03/16 05:15 INR, PTT INR 1.47 (0.82-1.09) H 11/03/16 05:15 Fibrinogen 254.0 mg/dL (238-498) 11/03/16 05:15 Current Medications Generic Name Dose Route Start Last Admin Trade Name Katherine PRN Reason Stop Dose Admin Acetaminophen 700 mg 11/02/16 18:45 11/03/16 17:44 Ofirmev Injection - IVPB Not Given Q6H-IV MARIE Epoetin Cirilo 3,000 unit 11/04/16 14:36 Procrit - IVPUSH 11/04/16 14:37 ONCE ONE Pantoprazole Sodium 80 mg/ 100 mls @ 10 mls/hr 10/26/16 17:00 11/03/16 15:55 Sodium Chloride IVPB 10 mls/hr Q10H MARIE Administration 8 MG/HR Fluconazole 50 mls @ 50 mls/hr 10/29/16 12:00 11/02/16 09:11 Diflucan 100 Mg/D5w Premixed Ivpb - IVPB 50 mls/hr Q2D@1000 MARIE Administration Propofol 100 mls @ 1.28 mls/hr 10/29/16 13:00 11/03/16 17:44 Diprivan - IVPB Not Given TITR MARIE Protocol 5 MCG/KG/MIN Fentanyl 500 mcg/ Dextrose 100 mls @ 5 mls/hr 10/29/16 21:15 11/03/16 05:26 IJ 5 mls/hr TITR MARIE Administration 25 MCG/HR Norepinephrine Bitartrate 8, 250 mls @ 9.37 mls/hr 10/30/16 21:00 11/03/16 05: 27 000 mcg/ Dextrose IV 5.62 mls/hr TITR MARIE Administration Protocol 5 MCG/MIN Levetiracetam 500 mg 10/25/16 22:00 11/03/16 09:06 Keppra Injection - IVPB 500 mg BID [facility]IE Administration Potassium Phos/Sodium Phos 1 packet 11/03/16 12:15 11/03/16 12:46 Phos-Nak Packet - PO 1 packet DAILY [facility] Administration Impression: Respiratory Failure Intubated S/P cardiopulmonary arrest ESRD Complex Renal cyst Hx hepatitis C Coagulopathy Thrombocytopenia Hx DVT - no a/c secondary to thrombocytopenia and coagulopathy Anemia Plan: Ongoing attempts at weaning per Critical care team and parameters Platelets prn < 20K or for procedures and/or GIB FFP prn procedures and /or GIB Cryoppt prn fibrinogen < 100 or procedures and ?or GIB Problem List - Problems (1) Cardiopulmonary arrest Code(s): I46.9 - CARDIAC ARREST, CAUSE UNSPECIFIED (2) DVT (deep venous thrombosis) Code(s): I82.409 - ACUTE EMBOLISM AND THOMBOS UNSP DEEP VN UNSP LOWER EXTREMITY (3) ESRD (end stage renal disease) on dialysis Code(s): N18.6 - END STAGE RENAL DISEASE Z99.2 - DEPENDENCE ON RENAL DIALYSIS (4) HCV (hepatitis C virus) Code(s): B19.20 - UNSPECIFIED VIRAL HEPATITIS C WITHOUT HEPATIC COMA (5) Respiratory failure Code(s): J96.90 - RESPIRATORY FAILURE, UNSP, UNSP W HYPOXIA OR HYPERCAPNIA (6) Pneumonia Code(s): J18.9 - PNEUMONIA, UNSPECIFIED ORGANISM
[2016-11-03] MEDS ORDERED: NOREPINEPHRINE BITARTRATE 4 MG/4 ML ML IV ONE (20:15)
[2016-11-04] MEDS: PANTOPRAZOLE SODIUM 80 MG in SODIUM CHLORIDE 100 ML IVPB SCH ×4 (01:00→21:55)
[2016-11-04] MEDS: ACETAMINOPHEN 1000 MG/100 ML VIAL (NON FORMULARY) IVPB SCH ×4 (03:00→21:52)
[2016-11-04 06:32] LABS: ALBUMIN 1.5 g/dl (3.4-5.0); BASOPHIL 0.8 % (0-2.0); BILIRUBIN,TOTAL 0.6 mg/dL (0.2-1.0); CALCIUM 7.3 mg/dL (8.5-10.1); CREATININE 2.3 mg/dL (0.55-1.02); EOSINOPHIL 1.2 % (0-4.5); INR 1.3 (0.82-1.09); MAGNESIUM 1.8 mg/dL (1.8-2.4); MCH 31.8 pg (25.7-33.7); MCHC 33.4 g/dl (32.0-36.0); MEAN CELL VOLUME 95.1 fl (80-96); MEAN PLT VOLUME 11.6 fl (7.5-11.1); NEUTROPHILS 78.6 % (42.8-82.8); PHOSPHOROUS 1.7 mg/dL (2.5-4.9); PLATELET COUNT 50 K/MM3 (134-434); PROTHROMBIN TIME (PATIENT) 14.4 SEC (9.98-11.88); TOT PROT 5.8 g/dl (6.4-8.2)
[2016-11-04 06:35] LABS: ACTIVATED PTT 36.9 SECONDS (26.9-34.4)
--- NOTE | 2016-11-04 06:58 | PN ---
Progress Note, Physician Chief Complaint: ID Off antibiotics and fluconazole At high risk for infection including Vania ( lines, antibiotics ESRD ICU ) NO fevers albeit debilitated elderly dialysis patient Blood cultures repeatedly negative - Current Medication List Current Medications: Active Medications Acetaminophen (Ofirmev Injection -) 700 mg IVPB Q6H-IV [facility] Last Admin: 11/04/16 03:00 Dose: 700 mg Epoetin Cirilo (Procrit -) 3,000 unit IVPUSH ONCE ONE Stop: 11/04/16 14:37 Pantoprazole Sodium 80 mg/ (Sodium Chloride) 100 mls @ 10 mls/hr IVPB Q10H [facility] PRN Reason: 8 MG/HR Last Admin: 11/04/16 01:00 Dose: 10 mls/hr Fluconazole (Diflucan 100 Mg/D5w Premixed Ivpb -) 50 mls @ 50 mls/hr IVPB Q2D@ 1000 [facility] Last Admin: 11/02/16 09:11 Dose: 50 mls/hr Propofol (Diprivan -) 100 mls @ 1.28 mls/hr IVPB TITR MARIE; 5 MCG/KG/MIN PRN Reason: Protocol Last Admin: 11/03/16 21:39 Dose: 3.8 mls/hr Fentanyl 500 mcg/ Dextrose 100 mls @ 5 mls/hr IJ TITR MARIE PRN Reason: 25 MCG/HR Last Admin: 11/03/16 21:38 Dose: 5 mls/hr Norepinephrine Bitartrate 8, (000 mcg/ Dextrose) 250 mls @ 9.37 mls/hr IV TITR MARIE; 5 MCG/MIN PRN Reason: Protocol Last Admin: 11/03/16 21:30 Dose: 9.37 mls/hr Levetiracetam (Keppra Injection -) 500 mg IVPB BID [facility] Last Admin: 11/03/16 21:41 Dose: 500 mg Potassium Phos/Sodium Phos (Phos-Nak Packet -) 1 packet PO DAILY [facility] Last Admin: 11/03/16 12:46 Dose: 1 packet - Objective Vital Signs: Vital Signs Temperature 99.2 F 11/04/16 06:00 Pulse Rate 84 11/04/16 06:00 Respiratory Rate 15 11/04/16 06:35 Blood Pressure 118/53 11/04/16 06:00 O2 Sat by Pulse Oximetry (%) 99 11/03/16 20:00 Constitutional: Yes: Other (Intubated) Cardiovascular: Yes: Regular Rate and Rhythm, S1, S2 Respiratory: Yes: WNL, Regular, CTA Bilaterally, Diminished Gastrointestinal: Yes: WNL, Normal Bowel Sounds, Soft. No: Rectal Bleeding, Tenderness, Tenderness, Rebound Edema: No Labs: CBC, BMP 11/04/16 05:20 11/04/16 05:20 INR, PTT INR 1.47 (0.82-1.09) H 11/03/16 05:15 Fibrinogen 254.0 mg/dL (238-498) 11/03/16 05:15 Problem List - Problems (1) Cardiopulmonary arrest Code(s): I46.9 - CARDIAC ARREST, CAUSE UNSPECIFIED (2) ESRD (end stage renal disease) on dialysis Code(s): N18.6 - END STAGE RENAL DISEASE Z99.2 - DEPENDENCE ON RENAL DIALYSIS (3) Pneumonia Code(s): J18.9 - PNEUMONIA, UNSPECIFIED ORGANISM (4) Respiratory failure Code(s): J96.90 - RESPIRATORY FAILURE, UNSP, UNSP W HYPOXIA OR HYPERCAPNIA Assessment/Plan Microbiology 11/01/16 14:45 Sputum - Endotrachea Suction/Ventilator Gram Stain - Final 10/27/16 17:00 Sputum - Endotrachea Suction/Ventilator Gram Stain - Final 10/27/16 17:00 Sputum - Endotrachea Suction/Ventilator Sputum Culture - Final Yeast Like Organism 10/23/16 08:00 Sputum - Endotrachea Suction/Ventilator Gram Stain - Final 10/23/16 08:00 Sputum - Endotrachea Suction/Ventilator Sputum Culture - Final Yeast Like Organism 10/23/16 07:30 Sputum - Endotrachea Suction/Ventilator Gram Stain - Final 10/23/16 07:30 Sputum - Endotrachea Suction/Ventilator Sputum Culture - Final Yeast Like Organism 11/01/16 14:45 Sputum - Endotrachea Suction/Ventilator Sputum Culture - Preliminary Yeast Like Organism Laboratory Tests 11/04/16 11/04/16 05:20 05:20 WBC 8.0 Hgb 7.9 L Hct 23.8 L Plt Count 50 L AST 26 ALT 10 L Alkaline Phosphatase 86 Assessment Respiratory failure unable to wean ESRD Thrombocytopenia Cardiopulmonary arrest Hepatitis C 3 intubations History of DVT Coagulopathy GI bleeding Plan Currently observe off antibiotics Weaning effort unsuccessful High risk for infection with overall prognosis poor Helen ZHAO
[2016-11-04 07:18] LABS: ARTERIAL BLD GAS O2 SATURATION 97.2 % (90-98.9); ARTERIAL BLOOD GAS BASE EXCESS 5.7 meq/l (-2-2); ARTERIAL BLOOD GAS HCO3 29.8 meq/L (22-26); ARTERIAL BLOOD GAS PO2 89.2 mmHg (70-100); ARTERIAL BLOOD GAS pH 7.45 (7.35-7.45)
[2016-11-04 07:19] LABS: ALLENS TEST POSITIVE; ART PUNCT SITE RIGHT RADIAL; LPM/O2% 30%; PT. ON O2? YES
[2016-11-04 07:20] LABS: TYPE OF O2 MECH VENT
[2016-11-04 07:21] LABS: MECH. VENT. YES; VENT RATE 15; VT/PRESS 500
[2016-11-04] MEDS ORDERED: PT OWN MED DRAWER 7, Y5N ONE (07:53)
[2016-11-04] MEDS ORDERED: EPOETIN ALFA 3,000 UNIT/1 ML ML IVPUSH ONE (09:00)
--- NOTE | 2016-11-04 10:00 | PN ---
Progress Note, Physician Chief Complaint: SEDATED, INTUBATED HAVING HD BEDSIDE AT THIS TIME - Current Medication List Current Medications: Active Medications Acetaminophen (Ofirmev Injection -) 700 mg IVPB Q6H-IV MARIE Last Admin: 11/04/16 03:00 Dose: 700 mg Amino Acids (Prostat Sugar-Free Packet -) 30 ml PO BID@0800,1730 MARIE Pantoprazole Sodium 80 mg/ (Sodium Chloride) 100 mls @ 10 mls/hr IVPB Q10H MARIE PRN Reason: 8 MG/HR Last Admin: 11/04/16 01:00 Dose: 10 mls/hr Fluconazole (Diflucan 100 Mg/D5w Premixed Ivpb -) 50 mls @ 50 mls/hr IVPB Q2D@ 1000 [facility]IRE Last Admin: 11/02/16 09:11 Dose: 50 mls/hr Propofol (Diprivan -) 100 mls @ 1.28 mls/hr IVPB TITR MARIE; 5 MCG/KG/MIN PRN Reason: Protocol Last Admin: 11/03/16 21:39 Dose: 3.8 mls/hr Fentanyl 500 mcg/ Dextrose 100 mls @ 5 mls/hr IJ TITR MARIE PRN Reason: 25 MCG/HR Last Admin: 11/03/16 21:38 Dose: 5 mls/hr Norepinephrine Bitartrate 8, (000 mcg/ Dextrose) 250 mls @ 9.37 mls/hr IV TITR MARIE; 5 MCG/MIN PRN Reason: Protocol Last Admin: 11/03/16 21:30 Dose: 9.37 mls/hr Levetiracetam (Keppra Injection -) 500 mg IVPB BID [facility] Last Admin: 11/03/16 21:41 Dose: 500 mg Potassium Phos/Sodium Phos (Phos-Nak Packet -) 1 packet PO DAILY MARIE Last Admin: 11/03/16 12:46 Dose: 1 packet - Objective Vital Signs: Vital Signs Temperature 97.6 F 11/04/16 07:45 Pulse Rate 88 11/04/16 09:47 Respiratory Rate 15 11/04/16 09:47 Blood Pressure 101/45 11/04/16 08:20 O2 Sat by Pulse Oximetry (%) 100 11/04/16 09:47 Constitutional: Yes: No Distress Eyes: Yes: WNL HENT: Yes: WNL Neck: Yes: WNL Cardiovascular: Yes: WNL Respiratory: Yes: Mechanically Ventilated Gastrointestinal: Yes: WNL Genitourinary: Yes: Incontinence, Other Musculoskeletal: Yes: Muscle Weakness Extremities: Yes: Other Edema: Yes Edema: LLE: Trace, RLE: Trace Peripheral Pulses WNL: Yes Integumentary: Yes: WNL Wound/Incision: Yes: Clean/Dry Neurological: Yes: Pre-Existing Deficit ...Motor Strength: LLE, RLE Psychiatric: Yes: Other Labs: CBC, BMP 11/04/16 05:20 11/04/16 05:20 INR, PTT INR 1.30 (0.82-1.09) H 11/04/16 05:20 Fibrinogen 254.0 mg/dL (238-498) 11/03/16 05:15 Problem List - Problems (1) Cardiopulmonary arrest Code(s): I46.9 - CARDIAC ARREST, CAUSE UNSPECIFIED (2) DVT (deep venous thrombosis) Code(s): I82.409 - ACUTE EMBOLISM AND THOMBOS UNSP DEEP VN UNSP LOWER EXTREMITY (3) ESRD (end stage renal disease) on dialysis Code(s): N18.6 - END STAGE RENAL DISEASE Z99.2 - DEPENDENCE ON RENAL DIALYSIS (4) HCV (hepatitis C virus) Code(s): B19.20 - UNSPECIFIED VIRAL HEPATITIS C WITHOUT HEPATIC COMA (5) Metabolic encephalopathy Code(s): G93.41 - METABOLIC ENCEPHALOPATHY (6) Pneumonia Code(s): J18.9 - PNEUMONIA, UNSPECIFIED ORGANISM (7) Respiratory failure Code(s): J96.90 - RESPIRATORY FAILURE, UNSP, UNSP W HYPOXIA OR HYPERCAPNIA Assessment/Plan UNABLE TO WEAN OFF VENT SCHEDULE TRACHEOSTOMY AT THIS TIME AWAITING FAMILY DECISION SEDATION CONTINUED DVT PROPHYLAXIS ABX WILL NEED TRANSFUSION PRBC AND WILL NEED PROCRIT
[2016-11-04] MEDS: FLUCONAZOLE 100 MG/D5W 50 ML IVPB SCH (10:19)
[2016-11-04] MEDS: levETIRAcetam 500 MG/5 ML INJECTION VIAL IVPB SCH ×2 (10:20→21:55)
[2016-11-04] MEDS: NAPH,MB-DB/K PH,MBDB POWDER PACKET PO SCH (10:20)
[2016-11-04] MEDS: EPOETIN ALFA 10,000 UNIT/1 ML VIAL SQ ONE ×2 (10:23→12:15)
--- NOTE | 2016-11-04 10:48 | PN ---
Progress Note (short form) - Note Progress Note: PULMONARY/CCM Pt seen and examined in the ICU. Remains intubated, sedated on levophed gtt. Currently being dialyzed. Last Vital Signs Temp Pulse Resp BP Pulse Ox 97.6 F 87 15 78/40 100 11/04/16 10:21 11/04/16 10:21 11/04/16 10:21 11/04/16 10:21 11/04/16 09:47 Intake & Output 11/01/16 11/02/16 11/03/16 11/04/16 23:59 23:59 23:59 23:59 Intake Total 2658.2 1726.8 2167.6 910 Output Total 0 0 0 Balance 2658.2 1726.8 2167.6 910 Weight 100 lb 4.965 oz 105 lb 8 oz 105 lb 8 oz 104 lb 8 oz Gen: intubated, sedated Heart: RRR Lung: decreased breath sounds at the bases Abd: soft, nontender Ext: + UE edema CBC, BMP 11/04/16 05:20 11/04/16 05:20 Active Medications Acetaminophen (Ofirmev Injection -) 700 mg IVPB Q6H-IV MARIE Last Admin: 11/04/16 09:18 Dose: Not Given Amino Acids (Prostat Sugar-Free Packet -) 30 ml PO BID@0800,1730 MARIE Epoetin Cirilo (Procrit -) 10,000 unit SQ ONCE ONE Stop: 11/04/16 10:04 Last Admin: 11/04/16 10:23 Dose: 10,000 unit Pantoprazole Sodium 80 mg/ (Sodium Chloride) 100 mls @ 10 mls/hr IVPB Q10H MARIE PRN Reason: 8 MG/HR Last Admin: 11/04/16 10:22 Dose: 10 mls/hr Fluconazole (Diflucan 100 Mg/D5w Premixed Ivpb -) 50 mls @ 50 mls/hr IVPB Q2D@ 1000 MARIE Last Admin: 11/04/16 10:19 Dose: 50 mls/hr Propofol (Diprivan -) 100 mls @ 1.28 mls/hr IVPB TITR MARIE; 5 MCG/KG/MIN PRN Reason: Protocol Last Admin: 11/03/16 21:39 Dose: 3.8 mls/hr Fentanyl 500 mcg/ Dextrose 100 mls @ 5 mls/hr IJ TITR MARIE PRN Reason: 25 MCG/HR Last Admin: 11/03/16 21:38 Dose: 5 mls/hr Norepinephrine Bitartrate 8, (000 mcg/ Dextrose) 250 mls @ 9.37 mls/hr IV TITR MARIE; 5 MCG/MIN PRN Reason: Protocol Last Admin: 11/03/16 21:30 Dose: 9.37 mls/hr Levetiracetam (Keppra Injection -) 500 mg IVPB BID [facility] Last Admin: 11/04/16 10:20 Dose: 500 mg Potassium Phos/Sodium Phos (Phos-Nak Packet -) 1 packet PO DAILY [facility] Last Admin: 11/04/16 10:20 Dose: 1 packet A/P s/p PEA Cardiopulmonary Arrest s/p Hypothermia Protocol Pneumonia Septic Shock Pulmonary HTN Lactic Acidosis resolved ESRD on HD r/o Anoxic Encephalopathy RLE distal DVT GI Bleed Thrombocytopenia r/o DIC - HD per renal with ultrafiltration - antibiotics per ID - holding anticoagulation - monitor CBC, coags, fibrinogen level - transfuse as needed - taper levophed gtt, maintain MAP >65 - HD per renal - empiric antiepileptics per neuro - hold sedation in AM - spontaneous breathing trials as tolerated - will likely need tracheostomy as pt not tolerating weaning trials - DVT/GI prophylaxis - continue ICU monitoring
[2016-11-04] MEDS: PROPOFOL 100 ML IVPB SCH (12:00)
--- NOTE | 2016-11-04 12:03 | PN ---
Progress Note (short form) - Note Progress Note: RENAL pt is currently on hemodialysis she is intubated and comfortable Last Vital Signs Temp Pulse Resp BP Pulse Ox 97.6 F 87 15 78/40 100 11/04/16 10:21 11/04/16 10:21 11/04/16 10:21 11/04/16 10:21 11/04/16 09:47 lungs clear cvs s1s2 rr abd soft ext no edema neuro awake but does not respond to questions CBC, BMP 11/04/16 05:20 11/04/16 05:20 Current Medications Generic Name Dose Route Start Last Admin Trade Name Freq PRN Reason Stop Dose Admin Acetaminophen 700 mg 11/02/16 18:45 11/04/16 09:18 Ofirmev Injection - IVPB Not Given Q6H-IV MARIE Amino Acids 30 ml 11/04/16 17:30 Prostat Sugar-Free Packet - PO BID@0800,1730 MARIE Epoetin Cirilo 10,000 unit 11/04/16 10:03 11/04/16 10:23 Procrit - SQ 11/04/16 10:04 10,000 unit ONCE ONE Administration Pantoprazole Sodium 80 mg/ 100 mls @ 10 mls/hr 10/26/16 17:00 11/04/16 10:22 Sodium Chloride IVPB 10 mls/hr Q10H MARIE Administration 8 MG/HR Fluconazole 50 mls @ 50 mls/hr 10/29/16 12:00 11/04/16 10:19 Diflucan 100 Mg/D5w Premixed Ivpb - IVPB 50 mls/hr Q2D@1000 MARIE Administration Propofol 100 mls @ 1.28 mls/hr 10/29/16 13:00 11/03/16 21:39 Diprivan - IVPB 3.8 mls/hr TITR MARIE Administration Protocol 5 MCG/KG/MIN Fentanyl 500 mcg/ Dextrose 100 mls @ 5 mls/hr 10/29/16 21:15 11/03/16 21:38 IJ 5 mls/hr TITR MARIE Administration 25 MCG/HR Norepinephrine Bitartrate 8, 250 mls @ 9.37 mls/hr 10/30/16 21:00 11/03/16 21: 30 000 mcg/ Dextrose IV 9.37 mls/hr TITR MARIE Administration Protocol 5 MCG/MIN Levetiracetam 500 mg 10/25/16 22:00 11/04/16 10:20 Keppra Injection - IVPB 500 mg BID MARIE Administration Potassium Phos/Sodium Phos 1 packet 11/03/16 12:15 11/04/16 10:20 Phos-Nak Packet - PO 1 packet DAILY MARIE Administration Impression 1. ESRD 2. s/p cardiopulmonary arrest 3. acute respiratory failure 4. Pneumonia 5. DVT of right leg 6. S/P Seizure following the arrest 7. Right renal complex cyst > 5cms in diameter 8. Anemia 9. Thrombocytopenia 10. H/O HCV 11. active GI bleed Plan continue phosphate replacement HD today continue AED MV
--- NOTE | 2016-11-04 12:21 | PN ---
Progress Note (short form) - Note Progress Note: Patient seen and examined Remains intubated , sedated, on pressors. No further GI bleeding Weaning attempts have been unsuccessful She is more alert Vital Signs Period Temp Pulse Resp BP Sys/Hodgson Pulse Ox Last 24 Hr 97.6 F-99.7 F 78-91 14-20 78-118/40-56 98-100 HEENT: JUAN, EOM Intact Intubated Cor: RSR, No murmurs, No gallops Lungs:diminished breath sounds Abd: Soft, Normal bowel sounds, No organomegaly, distended Ext:No significant edema Skin: No rashes, Integument intact CBC, BMP 11/04/16 05:20 11/04/16 05:20 Active Medications Generic Name Dose Route Start Last Admin Trade Name Freq PRN Reason Stop Dose Admin Acetaminophen 700 mg 11/02/16 18:45 11/04/16 09:18 Ofirmev Injection - IVPB Not Given Q6H-IV MARIE Amino Acids 30 ml 11/04/16 17:30 Prostat Sugar-Free Packet - PO BID@0800,1730 MARIE Epoetin Cirilo 10,000 unit 11/04/16 10:03 Procrit - SQ 11/04/16 10:04 ONCE ONE Pantoprazole Sodium 80 mg/ 100 mls @ 10 mls/hr 10/26/16 17:00 11/04/16 10:22 Sodium Chloride IVPB 10 mls/hr Q10H MARIE Administration 8 MG/HR Fluconazole 50 mls @ 50 mls/hr 10/29/16 12:00 11/04/16 10:19 Diflucan 100 Mg/D5w Premixed Ivpb - IVPB 50 mls/hr Q2D@1000 MARIE Administration Propofol 100 mls @ 1.28 mls/hr 10/29/16 13:00 11/03/16 21:39 Diprivan - IVPB 3.8 mls/hr TITR MARIE Administration Protocol 5 MCG/KG/MIN Fentanyl 500 mcg/ Dextrose 100 mls @ 5 mls/hr 10/29/16 21:15 11/03/16 21:38 IJ 5 mls/hr TITR MARIE Administration 25 MCG/HR Norepinephrine Bitartrate 8, 250 mls @ 9.37 mls/hr 10/30/16 21:00 11/03/16 21: 30 000 mcg/ Dextrose IV 9.37 mls/hr TITR MARIE Administration Protocol 5 MCG/MIN Levetiracetam 500 mg 10/25/16 22:00 11/04/16 10:20 Keppra Injection - IVPB 500 mg BID MARIE Administration Potassium Phos/Sodium Phos 1 packet 11/03/16 12:15 11/04/16 10:20 Phos-Nak Packet - PO 1 packet DAILY MARIE Administration Impression: Respiratory Failure Intubated S/P cardiopulmonary arrest ESRD Complex Renal cyst Hx hepatitis C Coagulopathy Thrombocytopenia Hx DVT - no a/c secondary to thrombocytopenia and coagulopathy Anemia Plan: Ongoing attempts at weaning per Critical care team and parameters Platelets prn < 20K or for procedures and/or GIB - Platelets are improving. No interventions at thsi time FFP prn procedures and /or GIB Cryoppt prn fibrinogen < 100 or procedures and ?or GIB Problem List - Problems (1) Cardiopulmonary arrest Code(s): I46.9 - CARDIAC ARREST, CAUSE UNSPECIFIED (2) DVT (deep venous thrombosis) Code(s): I82.409 - ACUTE EMBOLISM AND THOMBOS UNSP DEEP VN UNSP LOWER EXTREMITY (3) ESRD (end stage renal disease) on dialysis Code(s): N18.6 - END STAGE RENAL DISEASE Z99.2 - DEPENDENCE ON RENAL DIALYSIS (4) HCV (hepatitis C virus) Code(s): B19.20 - UNSPECIFIED VIRAL HEPATITIS C WITHOUT HEPATIC COMA (5) Respiratory failure Code(s): J96.90 - RESPIRATORY FAILURE, UNSP, UNSP W HYPOXIA OR HYPERCAPNIA (6) Pneumonia Code(s): J18.9 - PNEUMONIA, UNSPECIFIED ORGANISM
[2016-11-04] MEDS: FENTANYL INJECTION 500 MCG in DEXTROSE 5%-WATER - 90 ML IJ SCH ×2 (17:31→21:55)
[2016-11-04] MEDS: AMINO ACIDS/PROTEIN HYDROLYS SUGAR-FREE 30 ML PACKET PO SCH (17:33)
[2016-11-04] MEDS: NOREPINEPHRINE BITARTRATE 8,000 MCG in DEXTROSE 5%-WATER - 242 ML IV SCH (21:56)
[2016-11-04] MEDS ORDERED: NOREPINEPHRINE BITARTRATE 4 MG/4 ML ML IV ONE (23:45)
[2016-11-05] MEDS: ACETAMINOPHEN 1000 MG/100 ML VIAL (NON FORMULARY) IVPB SCH ×4 (03:10→21:29)
[2016-11-05] MEDS: PANTOPRAZOLE SODIUM 80 MG in SODIUM CHLORIDE 100 ML IVPB SCH ×2 (06:39→17:31)
[2016-11-05 06:44] LABS: MCH 31.7 pg (25.7-33.7); MCHC 33.3 g/dl (32.0-36.0); MEAN CELL VOLUME 95.4 fl (80-96); MEAN PLT VOLUME 11.4 fl (7.5-11.1); PLATELET COUNT 68 K/MM3 (134-434); RDW 22.3 % (11.6-15.6); WHITE BLOOD COUNT 7.2 K/mm3 (4.0-10.0)
[2016-11-05 07:11] LABS: CALCIUM 7.3 mg/dL (8.5-10.1); CREATININE 1.9 mg/dL (0.55-1.02); MAGNESIUM 1.6 mg/dL (1.8-2.4); PHOSPHOROUS 1.3 mg/dL (2.5-4.9)
[2016-11-05] MEDS ORDERED: PT OWN MED DRAWER 7, Y5N ONE (08:59)
[2016-11-05] MEDS: AMINO ACIDS/PROTEIN HYDROLYS SUGAR-FREE 30 ML PACKET PO SCH ×2 (09:00→17:31)
[2016-11-05] MEDS: NAPH,MB-DB/K PH,MBDB POWDER PACKET PO SCH (09:11)
[2016-11-05] MEDS: levETIRAcetam 500 MG/5 ML INJECTION VIAL IVPB SCH ×2 (09:11→21:31)
--- NOTE | 2016-11-05 10:18 | PN ---
Progress Note (short form) - Note Progress Note: PULMONARY/CCM Pt seen and examined in the ICU. Remains intubated, sedated on low dose levophed gtt. Last Vital Signs Temp Pulse Resp BP Pulse Ox 99 F 88 15 117/54 97 11/05/16 10:00 11/05/16 10:00 11/05/16 10:00 11/05/16 10:00 11/04/16 23:04 Intake & Output 11/02/16 11/03/16 11/04/16 11/05/16 23:59 23:59 23:59 23:59 Intake Total 1726.8 2167.6 2045 1036 Output Total 0 0 Balance 1726.8 2167.6 2045 1036 Weight 105 lb 8 oz 105 lb 8 oz 104 lb 8 oz 104 lb Gen: intubated, sedated Heart: RRR Lung: decreased breath sounds at the bases Abd: soft, nontender Ext: + UE edema CBC, BMP 11/05/16 05:20 11/05/16 05:20 INR, PTT INR 1.30 (0.82-1.09) H 11/04/16 05:20 Fibrinogen 254.0 mg/dL (238-498) 11/03/16 05:15 Active Medications Acetaminophen (Ofirmev Injection -) 700 mg IVPB Q6H-IV MARIE Last Admin: 11/05/16 09:11 Dose: Not Given Amino Acids (Prostat Sugar-Free Packet -) 30 ml PO BID@0800,1730 MARIE Last Admin: 11/05/16 09:00 Dose: 30 ml Pantoprazole Sodium 80 mg/ (Sodium Chloride) 100 mls @ 10 mls/hr IVPB Q10H MARIE PRN Reason: 8 MG/HR Last Admin: 11/05/16 06:39 Dose: 10 mls/hr Fluconazole (Diflucan 100 Mg/D5w Premixed Ivpb -) 50 mls @ 50 mls/hr IVPB Q2D@ 1000 MARIE Last Admin: 11/04/16 10:19 Dose: 50 mls/hr Propofol (Diprivan -) 100 mls @ 1.28 mls/hr IVPB TITR MARIE; 5 MCG/KG/MIN PRN Reason: Protocol Last Admin: 11/04/16 12:00 Dose: 3.8 mls/hr Fentanyl 500 mcg/ Dextrose 100 mls @ 5 mls/hr IJ TITR MARIE PRN Reason: 25 MCG/HR Last Admin: 11/04/16 21:55 Dose: 8 mls/hr Norepinephrine Bitartrate 8, (000 mcg/ Dextrose) 250 mls @ 9.37 mls/hr IV TITR MARIE; 5 MCG/MIN PRN Reason: Protocol Last Titration: 11/05/16 06:39 Dose: 2 mcg/min Levetiracetam (Keppra Injection -) 500 mg IVPB BID [facility]IE Last Admin: 11/05/16 09:11 Dose: 500 mg Potassium Phos/Sodium Phos (Phos-Nak Packet -) 1 packet PO DAILY MARIE Last Admin: 11/05/16 09:11 Dose: 1 packet A/P s/p PEA Cardiopulmonary Arrest s/p Hypothermia Protocol Pneumonia Septic Shock Pulmonary HTN Lactic Acidosis resolved ESRD on HD r/o Anoxic Encephalopathy RLE distal DVT GI Bleed Thrombocytopenia - HD per renal with ultrafiltration - antibiotics per ID - holding anticoagulation - monitor CBC, coags, fibrinogen level - transfuse as needed with HD - taper off levophed gtt, maintain MAP >65 - HD per renal - empiric antiepileptics per neuro - hold sedation in AM - spontaneous breathing trials as tolerated - will likely need tracheostomy as pt with multiple reintubations and not tolerating weaning trials - DVT/GI prophylaxis - continue ICU monitoring
--- NOTE | 2016-11-05 10:27 | PN ---
Progress Note, Physician Chief Complaint: SEDATED, INTUBATED HAVING HD BEDSIDE AT THIS TIME - Current Medication List Current Medications: Active Medications Acetaminophen (Ofirmev Injection -) 700 mg IVPB Q6H-IV MARIE Last Admin: 11/05/16 09:11 Dose: Not Given Amino Acids (Prostat Sugar-Free Packet -) 30 ml PO BID@0800,1730 MARIE Last Admin: 11/05/16 09:00 Dose: 30 ml Pantoprazole Sodium 80 mg/ (Sodium Chloride) 100 mls @ 10 mls/hr IVPB Q10H MARIE PRN Reason: 8 MG/HR Last Admin: 11/05/16 06:39 Dose: 10 mls/hr Fluconazole (Diflucan 100 Mg/D5w Premixed Ivpb -) 50 mls @ 50 mls/hr IVPB Q2D@ 1000 MARIE Last Admin: 11/04/16 10:19 Dose: 50 mls/hr Propofol (Diprivan -) 100 mls @ 1.28 mls/hr IVPB TITR MARIE; 5 MCG/KG/MIN PRN Reason: Protocol Last Admin: 11/04/16 12:00 Dose: 3.8 mls/hr Fentanyl 500 mcg/ Dextrose 100 mls @ 5 mls/hr IJ TITR MARIE PRN Reason: 25 MCG/HR Last Admin: 11/04/16 21:55 Dose: 8 mls/hr Norepinephrine Bitartrate 8, (000 mcg/ Dextrose) 250 mls @ 9.37 mls/hr IV TITR MARIE; 5 MCG/MIN PRN Reason: Protocol Last Titration: 11/05/16 06:39 Dose: 2 mcg/min Levetiracetam (Keppra Injection -) 500 mg IVPB BID [facility] Last Admin: 11/05/16 09:11 Dose: 500 mg Potassium Phos/Sodium Phos (Phos-Nak Packet -) 1 packet PO DAILY [facility] Last Admin: 11/05/16 09:11 Dose: 1 packet - Objective Vital Signs: Vital Signs Temperature 99 F 11/05/16 10:00 Pulse Rate 88 11/05/16 10:00 Respiratory Rate 15 11/05/16 10:00 Blood Pressure 117/54 11/05/16 10:00 O2 Sat by Pulse Oximetry (%) 97 11/04/16 23:04 Constitutional: Yes: Mild Distress Eyes: Yes: WNL HENT: Yes: WNL Neck: Yes: WNL Cardiovascular: Yes: WNL Respiratory: Yes: Mechanically Ventilated Gastrointestinal: Yes: WNL Genitourinary: Yes: Other Musculoskeletal: Yes: Muscle Weakness Extremities: Yes: Other Edema: No Peripheral Pulses WNL: Yes Integumentary: Yes: WNL Wound/Incision: Yes: Clean/Dry Neurological: Yes: Other ...Motor Strength: LLE, RLE Psychiatric: Yes: Other Labs: CBC, BMP 11/05/16 05:20 11/05/16 05:20 INR, PTT INR 1.30 (0.82-1.09) H 11/04/16 05:20 Fibrinogen 254.0 mg/dL (238-498) 11/03/16 05:15 Problem List - Problems (1) Cardiopulmonary arrest Code(s): I46.9 - CARDIAC ARREST, CAUSE UNSPECIFIED (2) DVT (deep venous thrombosis) Code(s): I82.409 - ACUTE EMBOLISM AND THOMBOS UNSP DEEP VN UNSP LOWER EXTREMITY (3) ESRD (end stage renal disease) on dialysis Code(s): N18.6 - END STAGE RENAL DISEASE Z99.2 - DEPENDENCE ON RENAL DIALYSIS (4) HCV (hepatitis C virus) Code(s): B19.20 - UNSPECIFIED VIRAL HEPATITIS C WITHOUT HEPATIC COMA (5) Metabolic encephalopathy Code(s): G93.41 - METABOLIC ENCEPHALOPATHY (6) Pneumonia Code(s): J18.9 - PNEUMONIA, UNSPECIFIED ORGANISM (7) Respiratory failure Code(s): J96.90 - RESPIRATORY FAILURE, UNSP, UNSP W HYPOXIA OR HYPERCAPNIA Assessment/Plan INTUBATED SCHEDULING TRACHEOSTOMY WILL NEED TO DISCUSS WITH FAMILY [facility] WITH DONA JULIO TRANSFUSE PRBC PROCRIT HD PER RENAL
[2016-11-05] MEDS ORDERED: MAGNESIUM SULF 50% (8.12 MEQ/2 ML-1 GM VIAL) IVPB ONE (11:00)
--- NOTE | 2016-11-05 11:05 | PN ---
Progress Note (short form) - Note Progress Note: RENAL she is intubated and comfortable tolerated HDS yesterday Last Vital Signs Temp Pulse Resp BP Pulse Ox 99 F 88 15 117/54 97 11/05/16 10:00 11/05/16 10:00 11/05/16 10:00 11/05/16 10:00 11/04/16 23:04 lungs clear cvs s1s2 rr abd soft ext no edema, LUE avf with an area with eschar neuro sedated CBC, BMP 11/05/16 05:20 11/05/16 05:20 Current Medications Generic Name Dose Route Start Last Admin Trade Name Freq PRN Reason Stop Dose Admin Acetaminophen 700 mg 11/02/16 18:45 11/05/16 09:11 Ofirmev Injection - IVPB Not Given Q6H-IV MARIE Amino Acids 30 ml 11/04/16 17:30 11/05/16 09:00 Prostat Sugar-Free Packet - PO 30 ml BID@0800,1730 MARIE Administration Pantoprazole Sodium 80 mg/ 100 mls @ 10 mls/hr 10/26/16 17:00 11/05/16 06:39 Sodium Chloride IVPB 10 mls/hr Q10H MARIE Administration 8 MG/HR Fluconazole 50 mls @ 50 mls/hr 10/29/16 12:00 11/04/16 10:19 Diflucan 100 Mg/D5w Premixed Ivpb - IVPB 50 mls/hr Q2D@1000 MARIE Administration Propofol 100 mls @ 1.28 mls/hr 10/29/16 13:00 11/04/16 12:00 Diprivan - IVPB 3.8 mls/hr TITR MARIE Administration Protocol 5 MCG/KG/MIN Fentanyl 500 mcg/ Dextrose 100 mls @ 5 mls/hr 10/29/16 21:15 11/04/16 21:55 IJ 8 mls/hr TITR MARIE Administration 25 MCG/HR Norepinephrine Bitartrate 8, 250 mls @ 9.37 mls/hr 10/30/16 21:00 11/05/16 06: 39 000 mcg/ Dextrose IV 2 mcg/min TITR MARIE Titration Protocol 5 MCG/MIN Levetiracetam 500 mg 10/25/16 22:00 11/05/16 09:11 Keppra Injection - IVPB 500 mg BID MARIE Administration Potassium Phos/Sodium Phos 1 packet 11/03/16 12:15 11/05/16 09:11 Phos-Nak Packet - PO 1 packet DAILY MARIE Administration Impression 1. ESRD 2. s/p cardiopulmonary arrest 3. acute respiratory failure 4. Pneumonia 5. DVT of right leg 6. S/P Seizure following the arrest 7. Right renal complex cyst > 5cms in diameter 8. Anemia 9. Thrombocytopenia 10. H/O HCV 11. active GI bleed Plan continue phosphate replacement start calcitriol does not need to have any procedure on HD access yet continue AED MV
[2016-11-05] MEDS: CALCITRIOL 0.25 MCG CAPSULE (FP) PO SCH (12:53)
--- NOTE | 2016-11-05 13:10 | PN ---
GI Progress Note Subjective: GI FOR DR TAMEZ PT APPEARS STABLE/ UNCHANGED NO OVERT BLEEDING NOTED NO VOMITING NOTED NO RECTAL BLEEDING SEEN NO DIARRHEA APPEARS TOLERATING NGT FEEDS ON VENT - Objective Vital Signs: Vital Signs Temperature 99 F 11/05/16 10:00 Pulse Rate 81 11/05/16 12:00 Respiratory Rate 16 11/05/16 12:00 Blood Pressure 118/57 11/05/16 12:00 O2 Sat by Pulse Oximetry (%) 99 11/05/16 11:08 HENT: Yes: Other (NGT IN PLACE--FUNCTIONING) Gastrointestinal Inspection: Yes: WNL (+bs HEARD; MILD DISTENTION NO TENDERNESS NOTED TO DEEP PALPATION) Labs: CBC, BMP 11/05/16 05:20 11/05/16 05:20 INR, PTT INR 1.30 (0.82-1.09) H 11/04/16 05:20 Fibrinogen 254.0 mg/dL (238-498) 11/03/16 05:15 Assessment/Plan CIRRHOSIS/ MULTI-ORGAN FAILURE NO ACUTE DETERIORATION NO OVERT BLEEDING LABS STABLE PLT IMPROVED INR STABLE TOLERATING NGT FEEDS AT THE PRESENT TIME SUPPORTIVE CARE F/U LABS MD AMANUEL
[2016-11-05] MEDS: PROPOFOL 100 ML IVPB SCH (14:00)
[2016-11-05] MEDS: FENTANYL INJECTION 500 MCG in DEXTROSE 5%-WATER - 90 ML IJ SCH (21:29)
[2016-11-05] MEDS: NOREPINEPHRINE BITARTRATE 8,000 MCG in DEXTROSE 5%-WATER - 242 ML IV SCH (21:29)
[2016-11-06] MEDS: ACETAMINOPHEN 1000 MG/100 ML VIAL (NON FORMULARY) IVPB SCH ×4 (03:15→21:20)
[2016-11-06] MEDS: PANTOPRAZOLE SODIUM 80 MG in SODIUM CHLORIDE 100 ML IVPB SCH ×5 (04:00→23:00)
[2016-11-06 06:17] LABS: BASOPHIL 0.4 % (0-2.0); EOSINOPHIL 1.2 % (0-4.5); MCH 32.2 pg (25.7-33.7); MCHC 33.5 g/dl (32.0-36.0); MEAN CELL VOLUME 96.1 fl (80-96); MEAN PLT VOLUME 11.3 fl (7.5-11.1); NEUTROPHILS 76.8 % (42.8-82.8); PLATELET COUNT 77 K/MM3 (134-434); RDW 21.7 % (11.6-15.6); WHITE BLOOD COUNT 7.4 K/mm3 (4.0-10.0)
[2016-11-06] MEDS: FENTANYL INJECTION 500 MCG in DEXTROSE 5%-WATER - 90 ML IJ SCH ×2 (06:42→09:31)
[2016-11-06 06:44] LABS: ALBUMIN 1.4 g/dl (3.4-5.0); CALCIUM 7.3 mg/dL (8.5-10.1); MAGNESIUM 1.8 mg/dL (1.8-2.4)
[2016-11-06 06:49] LABS: BILIRUBIN,TOTAL 0.6 mg/dL (0.2-1.0); CREATININE 2.3 mg/dL (0.55-1.02); PHOSPHOROUS 2.3 mg/dL (2.5-4.9); TOT PROT 5.5 g/dl (6.4-8.2)
[2016-11-06 07:38] LABS: ALLENS TEST POSITIVE; ART PUNCT SITE RIGHT RADIAL; ARTERIAL BLD GAS O2 SATURATION 97.4 % (90-98.9); ARTERIAL BLOOD GAS BASE EXCESS 4.9 meq/l (-2-2); ARTERIAL BLOOD GAS HCO3 28.3 meq/L (22-26); ARTERIAL BLOOD GAS PO2 94.6 mmHg (70-100); LPM/O2% 30%; MECH. VENT. ESPRIT; PT. ON O2? YES; TYPE OF O2 MEC.VENT; VENT RATE 15; VT/PRESS 350
[2016-11-06 07:39] LABS: ARTERIAL BLOOD GAS pH 7.49 (7.35-7.45)
--- NOTE | 2016-11-06 08:47 | PROC ---
Procedure Note Procedure: Spoke with ICU and OR staff, pt for possible bedside tach. The patient was made npo(feeds held) at 8am and called her (HCP) and consent for the trach was obtained. The patient had cardiopulmonary arrest upon admission and has been intubated/extubated and now remains on the vent with difficulty weaning. The patient is on HD and had a treatment on Sunday. Vital Signs Period Temp Pulse Resp BP Sys/Hodgson Pulse Ox Last 24 Hr 99 F-100.1 F 79-96 15-16 113-125/48-58 95-99 CBC, BMP 11/06/16 05:00 11/06/16 05:00 INR, PTT INR 1.30 (0.82-1.09) H 11/04/16 05:20 Fibrinogen 254.0 mg/dL (238-498) 11/03/16 05:15 CXR-11/06-small right pleural effsuion/right basailar infiltrate A/P: 80 yo female s/p cardiopulomary arrest with intubation/extubation and failure to wean After speaking with Dr. Allred, consent was obatined and pt made NPO. Plts 77, improved from 23. Plan to possibly proceed with the procedure today as per Dr. Allred and ICU staff
--- NOTE | 2016-11-06 08:53 | PN ---
Progress Note, Physician Chief Complaint: intubated - Current Medication List Current Medications: Active Medications Acetaminophen (Ofirmev Injection -) 700 mg IVPB Q6H-IV MARIE Last Admin: 11/06/16 03:15 Dose: Not Given Amino Acids (Prostat Sugar-Free Packet -) 30 ml PO BID@0800,1730 MARIE Last Admin: 11/05/16 17:31 Dose: 30 ml Calcitriol (Rocaltrol -) 0.25 mcg PO DAILY MARIE Last Admin: 11/05/16 12:53 Dose: Not Given Pantoprazole Sodium 80 mg/ (Sodium Chloride) 100 mls @ 10 mls/hr IVPB Q10H MARIE PRN Reason: 8 MG/HR Last Admin: 11/06/16 04:00 Dose: 10 mls/hr Propofol (Diprivan -) 100 mls @ 1.28 mls/hr IVPB TITR MARIE; 5 MCG/KG/MIN PRN Reason: Protocol Last Titration: 11/05/16 20:00 Dose: 20 mcg/kg/min Norepinephrine Bitartrate 8, (000 mcg/ Dextrose) 250 mls @ 9.37 mls/hr IV TITR MARIE; 5 MCG/MIN PRN Reason: Protocol Last Titration: 11/06/16 06:43 Dose: 1 mcg/min Fentanyl 500 mcg/ Dextrose 100 mls @ 5 mls/hr IJ TITR MARIE PRN Reason: 25 MCG/HR Stop: 11/07/16 05:44 Last Admin: 11/06/16 06:42 Dose: 8 mls/hr Levetiracetam (Keppra Injection -) 500 mg IVPB BID [facility] Last Admin: 11/05/16 21:31 Dose: 500 mg Potassium Phos/Sodium Phos (Phos-Nak Packet -) 1 packet PO DAILY [facility] Last Admin: 11/05/16 09:11 Dose: 1 packet - Objective Vital Signs: Vital Signs Temperature 100.1 F H 11/06/16 06:00 Pulse Rate 87 11/06/16 06:00 Respiratory Rate 15 11/06/16 06:15 Blood Pressure 123/53 11/06/16 06:00 O2 Sat by Pulse Oximetry (%) 97 11/05/16 20:04 Cardiovascular: Yes: Regular Rate and Rhythm, S1, S2 Respiratory: Yes: Diminished Gastrointestinal: Yes: Normal Bowel Sounds, Soft Labs: CBC, BMP 11/06/16 05:00 11/06/16 05:00 INR, PTT INR 1.30 (0.82-1.09) H 11/04/16 05:20 Fibrinogen 254.0 mg/dL (238-498) 11/03/16 05:15 Problem List - Problems (1) Cardiopulmonary arrest Code(s): I46.9 - CARDIAC ARREST, CAUSE UNSPECIFIED (2) DVT (deep venous thrombosis) Code(s): I82.409 - ACUTE EMBOLISM AND THOMBOS UNSP DEEP VN UNSP LOWER EXTREMITY (3) ESRD (end stage renal disease) on dialysis Code(s): N18.6 - END STAGE RENAL DISEASE Z99.2 - DEPENDENCE ON RENAL DIALYSIS (4) Pneumonia Code(s): J18.9 - PNEUMONIA, UNSPECIFIED ORGANISM (5) Respiratory failure Code(s): J96.90 - RESPIRATORY FAILURE, UNSP, UNSP W HYPOXIA OR HYPERCAPNIA Assessment/Plan (1) Cardiopulmonary arrest Code(s): I46.9 - CARDIAC ARREST, CAUSE UNSPECIFIED (2) DVT (deep venous thrombosis) Code(s): I82.409 - ACUTE EMBOLISM AND THOMBOS UNSP DEEP VN UNSP LOWER EXTREMITY (3) ESRD (end stage renal disease) on dialysis Code(s): N18.6 - END STAGE RENAL DISEASE Z99.2 - DEPENDENCE ON RENAL DIALYSIS (4) HCV (hepatitis C virus) Code(s): B19.20 - UNSPECIFIED VIRAL HEPATITIS C WITHOUT HEPATIC COMA (5) Metabolic encephalopathy Code(s): G93.41 - METABOLIC ENCEPHALOPATHY (6) Pneumonia Code(s): J18.9 - PNEUMONIA, UNSPECIFIED ORGANISM (7) Respiratory failure Code(s): J96.90 - RESPIRATORY FAILURE, UNSP, UNSP W HYPOXIA OR HYPERCAPNIA Assessment/Plan INTUBATED SCHEDULING TRACHEOSTOMY ADVANCED DIRECTIVES WITH DONA JULIO HGB 7.2 -> TRANSFUSE PRBC x 1 PROCRIT HD PER RENAL STAFF PSYCHIATRIST FM
[2016-11-06] MEDS: levETIRAcetam 500 MG/5 ML INJECTION VIAL IVPB SCH ×2 (09:23→21:20)
[2016-11-06] MEDS: NAPH,MB-DB/K PH,MBDB POWDER PACKET PO SCH (09:24)
[2016-11-06] MEDS: CALCITRIOL 0.25 MCG CAPSULE (FP) PO SCH (09:25)
[2016-11-06] MEDS: AMINO ACIDS/PROTEIN HYDROLYS SUGAR-FREE 30 ML PACKET PO SCH ×2 (09:27→18:30)
[2016-11-06] MEDS: PROPOFOL 100 ML IVPB SCH ×2 (09:32→16:16)
[2016-11-06] MEDS ORDERED: VECURONIUM BROMIDE 10 MG VIAL ONE (09:50)
[2016-11-06 12:07] LABS: ANISOCYTOSIS 2+
[2016-11-06 12:08] LABS: PLATELET ESTIMATE SLT DECREASED (NORMAL)
--- NOTE | 2016-11-06 12:41 | PROC ---
Procedure Note Procedure: BRONCHOSCOPY NOTE After discussing the risks and benefits of the procedure, informed consent was obtained. Storz video bronchoscope was passed via the ETT and the airways were examined down to the subsegmental level. No endobronchial lesions noted. Assisted surgeon with direct visualization of trachea as percutaneous tracheostomy performed by surgery. Bronchoscope passed via the fresh tracheostomy, no active bleeding noted and trach in place. Bronchoscope withdrawn and procedure terminated. Andreas Lucero MD
--- NOTE | 2016-11-06 12:47 | PN ---
Teaching Attending Note Name of Resident: Giovanni Dumas ATTENDING PHYSICIAN STATEMENT I saw and evaluated the patient. I reviewed the resident's note and discussed the case with the resident. I agree with the resident's findings and plan as documented. SUBJECTIVE: Pt seen and examined in the ICU. s/p bedside percutaneous trach this AM. Tolerated well. Remains vented, sedated on levophed gtt. OBJECTIVE: Last Vital Signs Temp Pulse Resp BP Pulse Ox 99 F 88 15 106/54 100 11/06/16 10:30 11/06/16 10:30 11/06/16 11:52 11/06/16 10:30 11/06/16 11:52 Intake & Output 11/03/16 11/04/16 11/05/16 11/06/16 23:59 23:59 23:59 23:59 Intake Total 2167.6 5 2158 1036 Output Total 0 Balance 2167.6 2044 215 1036 Weight 105 lb 8 oz 104 lb 8 oz 104 lb 107 lb 2 oz Gen: vented, sedated Heart: RRR Lung: decreased breath sounds at the bases Abd: soft, nontender Ext: UE edema CBC, BMP 11/06/16 05:00 11/06/16 05:00 Active Medications Acetaminophen (Ofirmev Injection -) 700 mg IVPB Q6H-IV MARIE Last Admin: 11/06/16 09:19 Dose: 700 mg Amino Acids (Prostat Sugar-Free Packet -) 30 ml PO BID@0800,1730 MARIE Last Admin: 11/06/16 09:27 Dose: 30 ml Calcitriol (Rocaltrol -) 0.25 mcg PO DAILY MARIE Last Admin: 11/06/16 09:25 Dose: Not Given Pantoprazole Sodium 80 mg/ (Sodium Chloride) 100 mls @ 10 mls/hr IVPB Q10H MARIE PRN Reason: 8 MG/HR Last Admin: 11/06/16 09:25 Dose: 10 mls/hr Propofol (Diprivan -) 100 mls @ 1.28 mls/hr IVPB TITR MARIE; 5 MCG/KG/MIN PRN Reason: Protocol Last Admin: 11/06/16 09:32 Dose: 5.12 mls/hr Norepinephrine Bitartrate 8, (000 mcg/ Dextrose) 250 mls @ 9.37 mls/hr IV TITR MARIE; 5 MCG/MIN PRN Reason: Protocol Last Titration: 11/06/16 06:43 Dose: 1 mcg/min Fentanyl 500 mcg/ Dextrose 100 mls @ 5 mls/hr IJ TITR MARIE PRN Reason: 25 MCG/HR Stop: 11/07/16 05:44 Last Admin: 11/06/16 09:31 Dose: 5 mls/hr Levetiracetam (Keppra Injection -) 500 mg IVPB BID [facility] Last Admin: 11/06/16 09:23 Dose: 500 mg Potassium Phos/Sodium Phos (Phos-Nak Packet -) 1 packet PO DAILY MARIE Last Admin: 11/06/16 09:24 Dose: 1 packet ASSESSMENT AND PLAN: s/p PEA Cardiopulmonary Arrest s/p Hypothermia Protocol Pneumonia Septic Shock Pulmonary HTN Lactic Acidosis resolved ESRD on HD r/o Anoxic Encephalopathy RLE distal DVT Hep C GI Bleed Thrombocytopenia - HD per renal with ultrafiltration - antibiotics per ID - holding anticoagulation - monitor CBC, coags, fibrinogen level - HD per renal, transfuse with HD - taper off levophed gtt if possible, maintain MAP >65 - empiric antiepileptics per neuro - hold sedation in AM - spontaneous breathing trials as tolerated - will need PEG placement - DVT/GI prophylaxis - continue ICU monitoring
--- NOTE | 2016-11-06 13:57 | PN ---
Physical Exam: SUBJECTIVE: Patient seen and examined at bedside in ICU this morning. Afebrile overnight with improvement in BP. No longer requires pressors. Comfortable with 30% FiO2. OBJECTIVE: Vital Signs Period Temp Pulse Resp BP Sys/Hodgson Pulse Ox Last 24 Hr 99 F-100.1 F 79-96 15-18 99-125/46-58 95-100 GENERAL: Sedated & mechanically ventilated via tracheotomy tube HEENT: Atraumatic, PERRLA, No lymphadenopathy noted, moist membranes LUNGS: decreased breath sounds at the bases HEART: RRR, S1S2 ABDOMEN: Soft, nontender, nondistended EXTREMITIES: 2+ pulses, warm, well-perfused, 1+edema upper extremities SKIN: Warm, dry, normal turgor, no rashes or lesions noted Laboratory Results - last 24 hr 11/06/16 11/06/16 11/06/16 05:00 05:00 07:25 WBC 7.4 RBC 2.23 L Hgb 7.2 L Hct 21.4 L MCV 96.1 H MCHC 33.5 RDW 21.7 H Plt Count 77 L MPV 11.3 H Neutrophils % 76.8 Lymphocytes % 11.6 D Monocytes % 10.0 Eosinophils % 1.2 Basophils % 0.4 Platelet Estimate Slt decreased Anisocytosis 2+ Macrocytosis 2+ Puncture Site Right radial ABG pH 7.49 H ABG pCO2 at Pt Temp 37.9 ABG pO2 at Pt Temp 94.6 ABG HCO3 28.3 H ABG O2 Sat (Measured) 97.4 ABG O2 Content 11.2 L ABG Base Excess 4.9 H Ventura Test Positive O2 Delivery Device Mec.vent Oxygen Flow Rate 30% Vent Mode A/c Vent Rate 15 Mechanical Rate Esprit PEEP 5.0 Pressure Support Vent 350 Sodium 138 Potassium 4.6 Chloride 99 Carbon Dioxide 29 Anion Gap 10 BUN 36 H D Creatinine 2.3 H D Creat Clearance w eGFR 20.45 Random Glucose 75 Calcium 7.3 L Phosphorus 2.3 L D Magnesium 1.8 Total Bilirubin 0.6 AST 22 ALT 9 L Alkaline Phosphatase 80 Total Protein 5.5 L Albumin 1.4 L Blood Type Antibody Screen Antibody Identification Antigen Identification Crossmatch 11/06/16 10:30 WBC RBC Hgb Hct MCV MCHC RDW Plt Count MPV Neutrophils % Lymphocytes % Monocytes % Eosinophils % Basophils % Platelet Estimate Anisocytosis Macrocytosis Puncture Site ABG pH ABG pCO2 at Pt Temp ABG pO2 at Pt Temp ABG HCO3 ABG O2 Sat (Measured) ABG O2 Content ABG Base Excess Ventura Test O2 Delivery Device Oxygen Flow Rate Vent Mode Vent Rate Mechanical Rate PEEP Pressure Support Vent Sodium Potassium Chloride Carbon Dioxide Anion Gap BUN Creatinine Creat Clearance w eGFR Random Glucose Calcium Phosphorus Magnesium Total Bilirubin AST ALT Alkaline Phosphatase Total Protein Albumin Blood Type B POSITIVE Antibody Screen Positive H Antibody Identification Anti-e Antigen Identification Y Crossmatch See Detail Active Medications Generic Name Dose Route Start Last Admin Trade Name Eamonq PRN Reason Stop Dose Admin Acetaminophen 700 mg 11/02/16 18:45 11/06/16 09:19 Ofirmev Injection - IVPB 700 mg Q6H-IV MARIE Administration Amino Acids 30 ml 11/04/16 17:30 11/06/16 09:27 Prostat Sugar-Free Packet - PO 30 ml BID@0800,1730 MARIE Administration Calcitriol 0.25 mcg 11/05/16 11:15 11/06/16 09:25 Rocaltrol - PO Not Given DAILY MARIE Pantoprazole Sodium 80 mg/ 100 mls @ 10 mls/hr 10/26/16 17:00 11/06/16 09:25 Sodium Chloride IVPB 10 mls/hr Q10H MARIE Administration 8 MG/HR Propofol 100 mls @ 1.28 mls/hr 10/29/16 13:00 11/06/16 09:32 Diprivan - IVPB 5.12 mls/hr TITR MARIE Administration Protocol 5 MCG/KG/MIN Fentanyl 500 mcg/ Dextrose 100 mls @ 5 mls/hr 11/06/16 05:45 11/06/16 09:31 IJ 11/07/16 05:44 5 mls/hr TITR MARIE Administration 25 MCG/HR Levetiracetam 500 mg 10/25/16 22:00 11/06/16 09:23 Keppra Injection - IVPB 500 mg BID AMRIE Administration Potassium Phos/Sodium Phos 1 packet 11/03/16 12:15 11/06/16 09:24 Phos-Nak Packet - PO 1 packet DAILY MARIE Administration ASSESSMENT/PLAN: 80 year old female with PMH of Hepatitis C, HTN, ESRD (HD MWF) who was admitted to ICU s/p Cardiopulmonary arrest. She was intubated and sedated until tracheostomy placed this morning with bronchocope assistance. #s/p PEA Cardiopulmonary Arrest s/p Hypothermia Protocol -Continue Keppra -Neurology following #Pneumonia -cultures (-), monitoring off antibiotics -S/p tracheotomy placement -confirmed proper placement w/ imaging #Septic Shock -stopped Levophed today as BP has been stable -maintain MAP >65 -may remove central line if peripheral line access can be obtained #GI Bleed? -Need to discuss PEG tube placement with GI -monitor CBC, coags, fibrinogen level -thrombocytopenia improving #ESRD on HD -HD at bedside -anemic, will give 1unit PRBC -avoid nephrotoxic drugs Prophylaxis/FEN -SCD's, PPI -Nepro @45/hr with 20 water, Given Prostat/Calcitriol/PhosNaK Visit type - Emergency Visit Emergency Visit: Yes ED Registration Date: 10/22/16 Care time: The patient presented to the Emergency Department on the above date and was hospitalized for further evaluation of their emergent condition. - New Patient This patient is new to me today: Yes Date on this admission: 11/06/16 - Critical Care Critical Care patient: Yes Total Critical Care Time (in minutes): 45 Critical Care Statement: The care of this patient involved high complexity decision making to prevent further life threatening deterioration of the patient 's condition and/or to evalute & treat vital organ system(s) failure or risk of failure.
--- NOTE | 2016-11-06 14:12 | OP ---
- Note: Patient Name: Sima Bullock MR#: [id number] Procedure Date: 11/06/16 Preoperative Diagnosis: Respiratory failure. Postoperative Diagnosis: same. Procedure: 1. Flexible Bronchoscopy; 2. Percutaneous tracheostomy with #7 Portex; Indication: Respiratory failure; Surgeon(s): Curt Allred MD Cosurgeon: Andreas Lucero MD Anesthesia: General endotracheal; Findings: Abundant secretions. Specimens Sent: 1. na; Complications: none Drains / Tubes / Catheters: na Hardware / Implants: na Blood / Fluid Losses: minimal Post-Operative Condition: Stable. Indications: This patient is a 80 year-old female with ESRD and HCV s/p cardiopulmonary arrest and respiratory failure. I was consulted by the ICU team to place a tracheostomy. Risks, benefits, and alternatives of the procedure were explained by the ICU team to her . All questions were addressed and her family agreed. Details of Procedure: The procedure was done at the bedside. We began with bronchoscopy to clear the airway for the procedure. After this, the neck was prepared and draped in standard fashion. We then made a transverse incision below the cricoid cartilage. We withdrew the endotracheal airway until we were close to the vocal cords. We inserted the needle from the percutaneous bronchoscopy kit under direct bronchoscopic vision identifying approximately the 2nd to 3rd ring. We then passed a wire under vision. We then dilated up and inserted the tracheostomy (#7 Portex). We put the cuff up and connected the ventilator. We placed the bronchoscope through the tracheostomy and then above. There was no significant bleeding and placement was good.
--- NOTE | 2016-11-06 15:07 | PN ---
Progress Note, Physician History of Present Illness: Pt seen and examined at bedside. She remains in the ICU. She had a tracheostomy done. - Current Medication List Current Medications: Active Medications Acetaminophen (Ofirmev Injection -) 700 mg IVPB Q6H-IV MARIE Last Admin: 11/06/16 09:19 Dose: 700 mg Amino Acids (Prostat Sugar-Free Packet -) 30 ml PO BID@0800,1730 MARIE Last Admin: 11/06/16 09:27 Dose: 30 ml Calcitriol (Rocaltrol -) 0.25 mcg PO DAILY MARIE Last Admin: 11/06/16 09:25 Dose: Not Given Pantoprazole Sodium 80 mg/ (Sodium Chloride) 100 mls @ 10 mls/hr IVPB Q10H MARIE PRN Reason: 8 MG/HR Last Admin: 11/06/16 09:25 Dose: 10 mls/hr Propofol (Diprivan -) 100 mls @ 1.28 mls/hr IVPB TITR MARIE; 5 MCG/KG/MIN PRN Reason: Protocol Last Admin: 11/06/16 09:32 Dose: 5.12 mls/hr Fentanyl 500 mcg/ Dextrose 100 mls @ 5 mls/hr IJ TITR MARIE PRN Reason: 25 MCG/HR Stop: 11/07/16 05:44 Last Admin: 11/06/16 09:31 Dose: 5 mls/hr Levetiracetam (Keppra Injection -) 500 mg IVPB BID [facility] Last Admin: 11/06/16 09:23 Dose: 500 mg Potassium Phos/Sodium Phos (Phos-Nak Packet -) 1 packet PO DAILY [facility] Last Admin: 11/06/16 09:24 Dose: 1 packet - Objective Vital Signs: Vital Signs Temperature 99 F 11/06/16 10:30 Pulse Rate 88 11/06/16 10:30 Respiratory Rate 15 11/06/16 13:52 Blood Pressure 106/54 11/06/16 10:30 O2 Sat by Pulse Oximetry (%) 100 11/06/16 11:52 Constitutional: Yes: Calm Eyes: Yes: Conjunctiva Clear HENT: Yes: Atraumatic Neck: Yes: Other (trache) Cardiovascular: Yes: S1, S2 Respiratory: Yes: Mechanically Ventilated Gastrointestinal: Yes: Soft Genitourinary: Yes: Incontinence Musculoskeletal: Yes: Muscle Weakness Edema: No Neurological: Yes: Lethargy Labs: CBC, BMP 11/06/16 05:00 11/06/16 05:00 INR, PTT INR 1.30 (0.82-1.09) H 11/04/16 05:20 Fibrinogen 254.0 mg/dL (238-498) 11/03/16 05:15 - ....Imaging Chest X-ray: Report Reviewed Problem List - Problems (1) Cardiopulmonary arrest Code(s): I46.9 - CARDIAC ARREST, CAUSE UNSPECIFIED (2) DVT (deep venous thrombosis) Code(s): I82.409 - ACUTE EMBOLISM AND THOMBOS UNSP DEEP VN UNSP LOWER EXTREMITY (3) ESRD (end stage renal disease) on dialysis Code(s): N18.6 - END STAGE RENAL DISEASE Z99.2 - DEPENDENCE ON RENAL DIALYSIS (4) HCV (hepatitis C virus) Code(s): B19.20 - UNSPECIFIED VIRAL HEPATITIS C WITHOUT HEPATIC COMA (5) Respiratory failure Code(s): J96.90 - RESPIRATORY FAILURE, UNSP, UNSP W HYPOXIA OR HYPERCAPNIA Assessment/Plan Current Medications Generic Name Dose Route Start Last Admin Trade Name Freq PRN Reason Stop Dose Admin Acetaminophen 700 mg 11/02/16 18:45 11/06/16 09:19 Ofirmev Injection - IVPB 700 mg Q6H-IV MARIE Administration Amino Acids 30 ml 11/04/16 17:30 11/06/16 09:27 Prostat Sugar-Free Packet - PO 30 ml BID@0800,1730 MARIE Administration Calcitriol 0.25 mcg 11/05/16 11:15 11/06/16 09:25 Rocaltrol - PO Not Given DAILY MARIE Pantoprazole Sodium 80 mg/ 100 mls @ 10 mls/hr 10/26/16 17:00 11/06/16 09:25 Sodium Chloride IVPB 10 mls/hr Q10H MARIE Administration 8 MG/HR Propofol 100 mls @ 1.28 mls/hr 10/29/16 13:00 11/06/16 09:32 Diprivan - IVPB 5.12 mls/hr TITR MARIE Administration Protocol 5 MCG/KG/MIN Fentanyl 500 mcg/ Dextrose 100 mls @ 5 mls/hr 11/06/16 05:45 11/06/16 09:31 IJ 11/07/16 05:44 5 mls/hr TITR MARIE Administration 25 MCG/HR Levetiracetam 500 mg 10/25/16 22:00 11/06/16 09:23 Keppra Injection - IVPB 500 mg BID MARIE Administration Potassium Phos/Sodium Phos 1 packet 11/03/16 12:15 11/06/16 09:24 Phos-Nak Packet - PO 1 packet DAILY MARIE Administration Laboratory Tests 11/06/16 05:00 Phosphorus 2.3 L D Magnesium 1.8 Impression 1. ESRD 2. s/p cardiopulmonary arrest 3. acute respiratory failure 4. Pneumonia 5. DVT of right leg 6. S/P Seizure following the arrest 7. Right renal complex cyst > 5cms in diameter 8. Anemia 9. Thrombocytopenia 10. H/O HCV 11. active GI bleed Plan - HD tomorrow - can give a unit of PRBC now, pt has antibodies and can not be transfused on HD per hospital policy - phos and mag improving - cont feeds - pt s/p trache - discussed with ICU team - cont vent support - monitor CBC - monitor platelets Dr Espino
--- NOTE | 2016-11-06 16:53 | PN ---
Progress Note (short form) - Note Progress Note: Patient seen and examined intubated Last Vital Signs Temp Pulse Resp BP Pulse Ox 98.6 F 82 15 128/49 100 11/06/16 16:00 11/06/16 16:00 11/06/16 16:00 11/06/16 16:00 11/06/16 11:52 intubated Cor: RSR, No murmurs, No gallops Lungs: Clear to P&A Abd: Soft, Normal bowel sounds, No organomegaly Ext:No significant edema Abnormal Lab Results 11/06/16 11/06/16 11/06/16 05:00 05:00 07:25 RBC 2.23 L Hgb 7.2 L Hct 21.4 L MCV 96.1 H RDW 21.7 H Plt Count 77 L MPV 11.3 H ABG pH 7.49 H ABG HCO3 28.3 H ABG O2 Content 11.2 L ABG Base Excess 4.9 H BUN 36 H D Creatinine 2.3 H D Calcium 7.3 L Phosphorus 2.3 L D ALT 9 L Total Protein 5.5 L Albumin 1.4 L Antibody Screen Crossmatch 11/06/16 10:30 RBC Hgb Hct MCV RDW Plt Count MPV ABG pH ABG HCO3 ABG O2 Content ABG Base Excess BUN Creatinine Calcium Phosphorus ALT Total Protein Albumin Antibody Screen Positive H Crossmatch See Detail Current Medications Acetaminophen (Ofirmev Injection -) 700 mg IVPB Q6H-IV MARIE Last Admin: 11/06/16 16:15 Dose: Not Given Amino Acids (Prostat Sugar-Free Packet -) 30 ml PO BID@0800,1730 MARIE Last Admin: 11/06/16 09:27 Dose: 30 ml Calcitriol (Rocaltrol -) 0.25 mcg PO DAILY MARIE Last Admin: 11/06/16 09:25 Dose: Not Given Epoetin Cirilo (Epogen -) 4,000 units IVPUSH ONCE ONE Stop: 11/07/16 15:09 Pantoprazole Sodium 80 mg/ (Sodium Chloride) 100 mls @ 10 mls/hr IVPB Q10H MARIE PRN Reason: 8 MG/HR Last Admin: 11/06/16 16:17 Dose: Not Given Propofol (Diprivan -) 100 mls @ 1.28 mls/hr IVPB TITR MARIE; 5 MCG/KG/MIN PRN Reason: Protocol Last Admin: 11/06/16 16:16 Dose: Not Given Fentanyl 500 mcg/ Dextrose 100 mls @ 5 mls/hr IJ TITR MARIE PRN Reason: 25 MCG/HR Stop: 11/07/16 05:44 Last Admin: 11/06/16 09:31 Dose: 5 mls/hr Levetiracetam (Keppra Injection -) 500 mg IVPB BID [facility] Last Admin: 11/06/16 09:23 Dose: 500 mg Potassium Phos/Sodium Phos (Phos-Nak Packet -) 1 packet PO DAILY [facility] Last Admin: 11/06/16 09:24 Dose: 1 packet A/P Intubated 3 times this admission Pneumonia with respiratory failure S/P Seizure following the arrest- ESRD LE edema with severe hypoalbuminemia Right renal complex cyst > 5cms in diameter H/O HCV/liver disease H/O GIB Cachexia Soleal DVT Thrombocytopena/coagulopathy s/p tracheostomy today RLE distal DVT --had been on heparin. Bled actively rectally and hnce hparin was stopped. s/p ivc filter placement thrombocytopnia/coagulopathy --due to sepsis/DIC vrsus undrlying Hp. c liver disease . Will need FFP/platelets if actively bleeding. s/p cryo--2/8 for fibrinogen <100 monitor platelts--transfuse for <20991 vit k trial anemia --bleeding plus chronic disease --ESRD/sepsis Abnormal CT--Lt. humrus dstructive lesion and hypodensities liver
[2016-11-07] MEDS: ACETAMINOPHEN 1000 MG/100 ML VIAL (NON FORMULARY) IVPB SCH ×5 (03:00→21:15)
[2016-11-07] MEDS: PANTOPRAZOLE SODIUM 80 MG in SODIUM CHLORIDE 100 ML IVPB SCH ×2 (06:00→12:00)
[2016-11-07 06:17] LABS: BASOPHIL 0.5 % (0-2.0); MCH 32.3 pg (25.7-33.7); MCHC 34.3 g/dl (32.0-36.0); MEAN PLT VOLUME 10.8 fl (7.5-11.1); NEUTROPHILS 78.2 % (42.8-82.8); PLATELET COUNT 85 K/MM3 (134-434); RDW 22.1 % (11.6-15.6); WHITE BLOOD COUNT 6.3 K/mm3 (4.0-10.0)
[2016-11-07 06:44] LABS: ALBUMIN 1.4 g/dl (3.4-5.0); CALCIUM 7.4 mg/dL (8.5-10.1); MAGNESIUM 1.8 mg/dL (1.8-2.4)
[2016-11-07 06:49] LABS: BILIRUBIN,TOTAL 0.6 mg/dL (0.2-1.0); CREATININE 2.6 mg/dL (0.55-1.02); PHOSPHOROUS 3.1 mg/dL (2.5-4.9); TOT PROT 5.6 g/dl (6.4-8.2)
--- NOTE | 2016-11-07 08:51 | PN ---
Progress Note (short form) - Note Progress Note: Surgery- Dr. Allred Patient seen this morning. Patient s/p bedside percutaneous tracheostomy, performed yesterday. Last Vital Signs Temp Pulse Resp BP Pulse Ox 98.5 F 96 H 15 97/48 100 11/07/16 06:55 11/07/16 08:30 11/07/16 08:30 11/07/16 08:30 11/07/16 08:16 Exam: Trach in place, soft, without evidence of hematoma A/p S/p tracheostomy with Dr. Allred Continue ICU care per primary team
[2016-11-07] MEDS ORDERED: EPOETIN ALFA 2,000 UNITS/1 ML VIAL IVPUSH ONE (09:00)
[2016-11-07] MEDS: levETIRAcetam 500 MG/5 ML INJECTION VIAL IVPB SCH ×2 (09:20→21:19)
[2016-11-07] MEDS: NAPH,MB-DB/K PH,MBDB POWDER PACKET PO SCH (09:21)
[2016-11-07] MEDS: CALCITRIOL 0.25 MCG CAPSULE (FP) PO SCH (09:22)
--- NOTE | 2016-11-07 12:27 | PN ---
Teaching Attending Note Name of Resident: Giovanni Dumas ATTENDING PHYSICIAN STATEMENT I saw and evaluated the patient. I reviewed the resident's note and discussed the case with the resident. I agree with the resident's findings and plan as documented. SUBJECTIVE: Pt seen and examined in the ICU. s/p tracheostomy. Remains sedated. Off levophed gtt. Being dialyzed. OBJECTIVE: Last Vital Signs Temp Pulse Resp BP Pulse Ox 97.7 F 99 H 17 134/68 100 11/07/16 10:00 11/07/16 12:00 11/07/16 12:00 11/07/16 12:00 11/07/16 08:16 Intake & Output 11/04/16 11/05/16 11/06/16 11/07/16 23:59 23:59 23:59 23:59 Intake Total 20448 2326 940 Balance 2044 2157 2326 940 Weight 104 lb 8 oz 104 lb 107 lb 2 oz 113 lb 7 oz Gen: vented, sedated Heart: RRR Lung: decreased breath sounds at the bases Abd: soft, nontender Ext: UE edema CBC, BMP 11/07/16 05:00 11/07/16 05:00 Active Medications Acetaminophen (Ofirmev Injection -) 700 mg IVPB Q6H-IV MARIE Last Admin: 11/07/16 09:18 Dose: Not Given Amino Acids (Prostat Sugar-Free Packet -) 30 ml PO BID@0800,1730 [facility] Last Admin: 11/06/16 18:30 Dose: Not Given Calcitriol (Rocaltrol -) 0.25 mcg PO DAILY [facility] Last Admin: 11/07/16 09:22 Dose: Not Given Pantoprazole Sodium (Protonix 40mg Ivpb (Pre-Docked)) 100 mls @ 200 mls/hr IVPB BID [facility] Levetiracetam (Keppra Injection -) 500 mg IVPB BID [facility] Last Admin: 11/07/16 09:20 Dose: 500 mg Potassium Phos/Sodium Phos (Phos-Nak Packet -) 1 packet PO DAILY [facility] Last Admin: 11/07/16 09:21 Dose: 1 packet ASSESSMENT AND PLAN: s/p PEA Cardiopulmonary Arrest s/p Hypothermia Protocol Pneumonia Septic Shock resolving Pulmonary HTN Lactic Acidosis resolved ESRD on HD r/o Anoxic Encephalopathy RLE distal DVT Hep C GI Bleed Thrombocytopenia - HD per renal with ultrafiltration - antibiotics completed - holding anticoagulation - monitoring off levophed gtt - empiric antiepileptics per neuro - d/c all sedation to assess mental status - spontaneous breathing trials as tolerated - will need PEG placement - enteral feeds - DVT/GI prophylaxis - continue ICU monitoring
--- NOTE | 2016-11-07 12:39 | PN ---
Physical Exam: SUBJECTIVE: Patient seen and examined at bedside in ICU. Being dialyzed. Taken off sedation earlier in AM but still nonresponsive. Afebrile overnight with good oxygen saturation on 30% FiO2. OBJECTIVE: Vital Signs Period Temp Pulse Resp BP Sys/Hodgson Pulse Ox Last 24 Hr 97.7 F-99.7 F 82-100 15-17 91-134/45-86 100-100 GENERAL: Mechanically ventilated via tracheotomy tube HEENT: Atraumatic, PERRLA, No lymphadenopathy noted, moist membranes LUNGS: decreased breath sounds at the bases HEART: RRR, S1S2 ABDOMEN: Soft, nontender, nondistended EXTREMITIES: 2+ pulses, warm, well-perfused, 1+edema upper extremities SKIN: Warm, dry, normal turgor, no rashes or lesions noted Laboratory Results - last 24 hr 11/02/16 11/06/16 11/07/16 05:05 10:30 05:00 WBC 6.3 RBC 2.67 L Hgb 8.6 L D Hct 25.1 L D MCV 94.0 MCHC 34.3 RDW 22.1 H Plt Count 85 L MPV 10.8 Neutrophils % 78.2 Lymphocytes % 9.8 Monocytes % 10.5 H Eosinophils % 1.0 Basophils % 0.5 Sodium Potassium Chloride Carbon Dioxide Anion Gap BUN Creatinine Creat Clearance w eGFR Random Glucose Calcium Phosphorus Magnesium Total Bilirubin AST ALT Alkaline Phosphatase Total Protein Albumin Hep-Induced Plt Ab Rapid 0.703 Blood Type B POSITIVE Antibody Screen Positive H Antibody Identification Anti-e Antigen Identification Y Crossmatch See Detail Spec Expiration Date 11/07/16 05:00 WBC RBC Hgb Hct MCV MCHC RDW Plt Count MPV Neutrophils % Lymphocytes % Monocytes % Eosinophils % Basophils % Sodium 136 Potassium 4.9 Chloride 98 Carbon Dioxide 29 Anion Gap 9 BUN 49 H D Creatinine 2.6 H Creat Clearance w eGFR 17.76 Random Glucose 91 D Calcium 7.4 L Phosphorus 3.1 D Magnesium 1.8 Total Bilirubin 0.6 AST 27 D ALT 9 L Alkaline Phosphatase 91 Total Protein 5.6 L Albumin 1.4 L Hep-Induced Plt Ab Rapid Blood Type Antibody Screen Antibody Identification Antigen Identification Crossmatch Spec Expiration Date Active Medications Generic Name Dose Route Start Last Admin Trade Name Freq PRN Reason Stop Dose Admin Acetaminophen 700 mg 11/02/16 18:45 11/07/16 09:18 Ofirmev Injection - IVPB Not Given Q6H-IV MARIE Amino Acids 30 ml 11/04/16 17:30 11/06/16 18:30 Prostat Sugar-Free Packet - PO Not Given BID@0800,1730 MARIE Calcitriol 0.25 mcg 11/05/16 11:15 11/07/16 09:22 Rocaltrol - PO Not Given DAILY MARIE Pantoprazole Sodium 100 mls @ 200 mls/hr 11/07/16 22:00 Protonix 40mg Ivpb (Pre-Docked) IVPB BID MARIE Levetiracetam 500 mg 10/25/16 22:00 11/07/16 09:20 Keppra Injection - IVPB 500 mg BID MARIE Administration Potassium Phos/Sodium Phos 1 packet 11/03/16 12:15 11/07/16 09:21 Phos-Nak Packet - PO 1 packet DAILY MARIE Administration ASSESSMENT/PLAN: 80 year old female with PMH of Hepatitis C, HTN, ESRD (HD MWF) who was admitted to ICU s/p Cardiopulmonary arrest. She was intubated and sedated until tracheostomy placed Sunday morning. #s/p PEA Cardiopulmonary Arrest s/p Hypothermia Protocol -Continue Keppra -Neurology following #Pneumonia -cultures (-), monitoring off antibiotics -S/p tracheotomy placement -f/u CXR in AM #Septic Shock -BP stable off of pressors -discontinued sedation -maintain MAP >65 -may remove central line if peripheral line access can be obtained #GI Bleed? -Need to discuss PEG tube placement with surgery (GI/Interventional radiology says unsafe for them to perform due to patient's cirrhosis & varices) -monitor CBC, coags, fibrinogen level -thrombocytopenia improving #ESRD on HD -HD was performed today, 1unit PRBC given yesterday -avoid nephrotoxic drugs -AV graft needs to be assessed by vascular surgery, will request consult -upper extremity duplex US ordered to rule out clot Prophylaxis/FEN -SCD's, PPI -Nepro @45/hr with 20 water, Given Prostat/Calcitriol/PhosNaK Visit type - Emergency Visit Emergency Visit: Yes ED Registration Date: 10/22/16 Care time: The patient presented to the Emergency Department on the above date and was hospitalized for further evaluation of their emergent condition. - New Patient This patient is new to me today: No - Critical Care Critical Care patient: Yes Total Critical Care Time (in minutes): 40 Critical Care Statement: The care of this patient involved high complexity decision making to prevent further life threatening deterioration of the patient 's condition and/or to evalute & treat vital organ system(s) failure or risk of failure.
[2016-11-07] MEDS: AMINO ACIDS/PROTEIN HYDROLYS SUGAR-FREE 30 ML PACKET PO SCH ×2 (12:44→18:08)
--- NOTE | 2016-11-07 14:00 | PN ---
Progress Note (short form) - Note Progress Note: Patient seen and examined Awake and alert. S/P tracheostomy S/P H.D/ Last Vital Signs Temp Pulse Resp BP Pulse Ox 97.7 F 99 H 17 134/68 100 11/07/16 10:00 11/07/16 12:00 11/07/16 12:00 11/07/16 12:00 11/07/16 08:16 HEENT: JUAN, EOM Intact, widened palpebral fissure Oropharynx: No thrush, No mucositis Neck- s/p trach Cor: RSR, No murmurs, No gallops Lungs: diffuse rhonchi-anteriorly and posteriorly Abd: Soft, Normal bowel sounds, No organomegaly Ext:No significant edema Skin: No rashes, Integument intact CBC, BMP 11/07/16 05:00 11/07/16 05:00 Current Medications Generic Name Dose Route Start Last Admin Trade Name Freq PRN Reason Stop Dose Admin Acetaminophen 700 mg 11/02/16 18:45 11/07/16 09:18 Ofirmev Injection - IVPB Not Given Q6H-IV MARIE Amino Acids 30 ml 11/04/16 17:30 11/07/16 12:44 Prostat Sugar-Free Packet - PO Not Given BID@0800,1730 MARIE Calcitriol 0.25 mcg 11/05/16 11:15 11/07/16 09:22 Rocaltrol - PO Not Given DAILY MARIE Pantoprazole Sodium 100 mls @ 200 mls/hr 11/07/16 22:00 Protonix 40mg Ivpb (Pre-Docked) IVPB BID MARIE Levetiracetam 500 mg 10/25/16 22:00 11/07/16 09:20 Keppra Injection - IVPB 500 mg BID MARIE Administration Potassium Phos/Sodium Phos 1 packet 11/03/16 12:15 11/07/16 09:21 Phos-Nak Packet - PO 1 packet DAILY MARIE Administration Impression: S/P cardiorespiratory arrest Hypoxic Respiratory Failure S/P tracheostomy ESRD/H.D> Hepatitis C Cysts right kidney Anemia Coagulopathy Thrombocytopenia Plan: Check coagulation studies Thrombocytopenia -slowly improving ?? nutrition with PEG MARIBEL and Venofer for Anemia?? Problem List - Problems (1) Cardiopulmonary arrest Code(s): I46.9 - CARDIAC ARREST, CAUSE UNSPECIFIED (2) DVT (deep venous thrombosis) Code(s): I82.409 - ACUTE EMBOLISM AND THOMBOS UNSP DEEP VN UNSP LOWER EXTREMITY (3) ESRD (end stage renal disease) on dialysis Code(s): N18.6 - END STAGE RENAL DISEASE Z99.2 - DEPENDENCE ON RENAL DIALYSIS (4) HCV (hepatitis C virus) Code(s): B19.20 - UNSPECIFIED VIRAL HEPATITIS C WITHOUT HEPATIC COMA (5) Respiratory failure Code(s): J96.90 - RESPIRATORY FAILURE, UNSP, UNSP W HYPOXIA OR HYPERCAPNIA (6) Pneumonia Code(s): J18.9 - PNEUMONIA, UNSPECIFIED ORGANISM
[2016-11-07 14:31] LABS: ARTERIAL BLD GAS O2 SATURATION 94.8 % (90-98.9); ARTERIAL BLOOD GAS HCO3 29.5 meq/L (22-26); ARTERIAL BLOOD GAS pH 7.49 (7.35-7.45)
[2016-11-07 14:32] LABS: ALLENS TEST POSITIVE; ART PUNCT SITE RIGHT RADIAL; LPM/O2% 30%; PT. ON O2? YES; TYPE OF O2 MEC.VENT; VENT RATE 15; VT/PRESS 350
[2016-11-07 14:33] LABS: MECH. VENT. YES
--- NOTE | 2016-11-07 15:36 | PN ---
Progress Note, Physician History of Present Illness: Pt seen and examined at bedside. She is awake. She remains intubated. - Current Medication List Current Medications: Active Medications Acetaminophen (Ofirmev Injection -) 700 mg IVPB Q6H-IV MARIE Last Admin: 11/07/16 14:51 Dose: Not Given Amino Acids (Prostat Sugar-Free Packet -) 30 ml PO BID@0800,1730 [facility] Last Admin: 11/07/16 12:44 Dose: Not Given Calcitriol (Rocaltrol -) 0.25 mcg PO DAILY [facility] Last Admin: 11/07/16 09:22 Dose: Not Given Pantoprazole Sodium (Protonix 40mg Ivpb (Pre-Docked)) 100 mls @ 200 mls/hr IVPB BID MARIE Levetiracetam (Keppra Injection -) 500 mg IVPB BID [facility] Last Admin: 11/07/16 09:20 Dose: 500 mg Potassium Phos/Sodium Phos (Phos-Nak Packet -) 1 packet PO DAILY [facility] Last Admin: 11/07/16 09:21 Dose: 1 packet - Objective Vital Signs: Vital Signs Temperature 99.7 F H 11/07/16 14:00 Pulse Rate 110 H 11/07/16 14:00 Respiratory Rate 23 11/07/16 15:00 Blood Pressure 140/60 11/07/16 14:00 O2 Sat by Pulse Oximetry (%) 100 11/07/16 08:16 Constitutional: Yes: Calm Eyes: Yes: Conjunctiva Clear HENT: Yes: Atraumatic Neck: Yes: Other (trache) Cardiovascular: Yes: S1, S2 Respiratory: Yes: Mechanically Ventilated Gastrointestinal: Yes: Soft Genitourinary: Yes: Incontinence Musculoskeletal: Yes: Muscle Weakness Edema: Yes Edema: LUE: 2+, RUE: 2+ Neurological: Yes: Other (awake and follows simple commands) Labs: CBC, BMP 11/07/16 05:00 11/07/16 05:00 INR, PTT INR 1.30 (0.82-1.09) H 11/04/16 05:20 Fibrinogen 254.0 mg/dL (238-498) 11/03/16 05:15 - ....Imaging Chest X-ray: Report Reviewed Problem List - Problems (1) Cardiopulmonary arrest Code(s): I46.9 - CARDIAC ARREST, CAUSE UNSPECIFIED (2) DVT (deep venous thrombosis) Code(s): I82.409 - ACUTE EMBOLISM AND THOMBOS UNSP DEEP VN UNSP LOWER EXTREMITY (3) ESRD (end stage renal disease) on dialysis Code(s): N18.6 - END STAGE RENAL DISEASE Z99.2 - DEPENDENCE ON RENAL DIALYSIS (4) HCV (hepatitis C virus) Code(s): B19.20 - UNSPECIFIED VIRAL HEPATITIS C WITHOUT HEPATIC COMA (5) Respiratory failure Code(s): J96.90 - RESPIRATORY FAILURE, UNSP, UNSP W HYPOXIA OR HYPERCAPNIA Assessment/Plan Current Medications Generic Name Dose Route Start Last Admin Trade Name Freq PRN Reason Stop Dose Admin Acetaminophen 700 mg 11/02/16 18:45 11/07/16 14:51 Ofirmev Injection - IVPB Not Given Q6H-IV MARIE Amino Acids 30 ml 11/04/16 17:30 11/07/16 12:44 Prostat Sugar-Free Packet - PO Not Given BID@0800,1730 MARIE Calcitriol 0.25 mcg 11/05/16 11:15 11/07/16 09:22 Rocaltrol - PO Not Given DAILY MARIE Pantoprazole Sodium 100 mls @ 200 mls/hr 11/07/16 22:00 Protonix 40mg Ivpb (Pre-Docked) IVPB BID MARIE Levetiracetam 500 mg 10/25/16 22:00 11/07/16 09:20 Keppra Injection - IVPB 500 mg BID MARIE Administration Potassium Phos/Sodium Phos 1 packet 11/03/16 12:15 11/07/16 09:21 Phos-Nak Packet - PO 1 packet DAILY MARIE Administration Impression 1. ESRD 2. s/p cardiopulmonary arrest 3. acute respiratory failure 4. Pneumonia 5. DVT of right leg 6. S/P Seizure following the arrest 7. Right renal complex cyst > 5cms in diameter 8. Anemia 9. Thrombocytopenia 10. H/O HCV 11. active GI bleed Plan - pt tolerated HD - she has developed bilateral upper extremity swelling, check bilateral ultrasounds. Called vascular surgery to evaluate access. - discussed with ICU team - discussed plan at length with pts - monitor platelets, improving - cont feeds - pt s/p trache - cont vent support - monitor CBC - monitor phos and mag Dr Espino
--- NOTE | 2016-11-07 16:13 | PN ---
Progress Note (short form) - Note Progress Note: Vascular Surgery- Dr. Crain Consult for evaluation of Left AVF Asked by Dr. Espino to see 80 yo F with hx of ESRD on HD since 2006. Patient had HD this morning via her left UE AVF. Patient is s/p recent cardiac arrest, s/p bedside tracheostomy, PPD#1. Last Vital Signs Temp Pulse Resp BP Pulse Ox 99.7 F H 110 H 23 140/60 100 11/07/16 14:00 11/07/16 14:00 11/07/16 15:00 11/07/16 14:00 11/07/16 08:16 Exam: LUE: AV fistula with good thrill, 2 areas approx 2 cm each over fistula with skin excoriation/scab, without drainage or surrounding erythema, radial pulse 2+ A/P Patient discussed with Dr. Crain May continue to use Left AVF, if difficulty/unable to access for next HD, can order ultrasound
--- NOTE | 2016-11-07 16:54 | PN ---
Progress Note, Physician Chief Complaint: awake/tracheostomy placed - Current Medication List Current Medications: Active Medications Acetaminophen (Ofirmev Injection -) 700 mg IVPB Q6H-IV MARIE Last Admin: 11/07/16 14:51 Dose: Not Given Amino Acids (Prostat Sugar-Free Packet -) 30 ml PO BID@0800,1730 [facility] Last Admin: 11/07/16 12:44 Dose: Not Given Calcitriol (Rocaltrol -) 0.25 mcg PO DAILY [facility] Last Admin: 11/07/16 09:22 Dose: Not Given Pantoprazole Sodium (Protonix 40mg Ivpb (Pre-Docked)) 100 mls @ 200 mls/hr IVPB BID [facility] Levetiracetam (Keppra Injection -) 500 mg IVPB BID [facility] Last Admin: 11/07/16 09:20 Dose: 500 mg Potassium Phos/Sodium Phos (Phos-Nak Packet -) 1 packet PO DAILY [facility] Last Admin: 11/07/16 09:21 Dose: 1 packet - Objective Vital Signs: Vital Signs Temperature 100 F H 11/07/16 16:00 Pulse Rate 110 H 11/07/16 16:00 Respiratory Rate 22 11/07/16 16:00 Blood Pressure 136/63 11/07/16 16:00 O2 Sat by Pulse Oximetry (%) 100 11/07/16 08:16 Constitutional: Yes: Mild Distress Eyes: Yes: WNL HENT: Yes: WNL Neck: Yes: WNL Cardiovascular: Yes: WNL Respiratory: Yes: Mechanically Ventilated, Other Gastrointestinal: Yes: Distention, Tenderness Genitourinary: Yes: Other Musculoskeletal: Yes: Muscle Weakness Extremities: Yes: Other Edema: No Peripheral Pulses WNL: Yes Integumentary: Yes: Rash, Venous Stasis Changes Wound/Incision: Yes: Dressing Dry and Intact, Unapproximated Neurological: Yes: Pre-Existing Deficit, Unsteady Gait, Weakness ...Motor Strength: LUE, LLE, RUE, RLE Psychiatric: Yes: Agitated Labs: CBC, BMP 11/07/16 05:00 11/07/16 05:00 INR, PTT INR 1.30 (0.82-1.09) H 11/04/16 05:20 Fibrinogen 254.0 mg/dL (238-498) 02/10/17 05:15 Problem List - Problems (1) Cardiopulmonary arrest Code(s): I46.9 - CARDIAC ARREST, CAUSE UNSPECIFIED (2) DVT (deep venous thrombosis) Code(s): I82.409 - ACUTE EMBOLISM AND THOMBOS UNSP DEEP VN UNSP LOWER EXTREMITY (3) ESRD (end stage renal disease) on dialysis Code(s): N18.6 - END STAGE RENAL DISEASE Z99.2 - DEPENDENCE ON RENAL DIALYSIS (4) HCV (hepatitis C virus) Code(s): B19.20 - UNSPECIFIED VIRAL HEPATITIS C WITHOUT HEPATIC COMA (5) Metabolic encephalopathy Code(s): G93.41 - METABOLIC ENCEPHALOPATHY (6) Pneumonia Code(s): J18.9 - PNEUMONIA, UNSPECIFIED ORGANISM (7) Respiratory failure Code(s): J96.90 - RESPIRATORY FAILURE, UNSP, UNSP W HYPOXIA OR HYPERCAPNIA (8) Dysphagia Code(s): R13.10 - DYSPHAGIA, UNSPECIFIED Assessment/Plan TRACHEOSTOMY IN PLACE AND FUNCTIONING J-TUBE WITH INTERVENTIONAL RADIOLOGY, DISCUSSED WITH DR NEVILLE AV FISTULA REVIEW WITH VASC SX OOB TO CHAIR AND PT WHEN JTUBE PLACED PROSTAT MVI HD PER RENAL
[2016-11-07] MEDS: PANTOPRAZOLE SODIUM 100 ML IVPB SCH (21:19)
[2016-11-08] MEDS: ACETAMINOPHEN 1000 MG/100 ML VIAL (NON FORMULARY) IVPB SCH ×2 (05:08→09:05)
[2016-11-08 05:42] LABS: BASOPHIL 0.4 % (0-2.0); MCH 32.1 pg (25.7-33.7); MCHC 33.8 g/dl (32.0-36.0); MEAN CELL VOLUME 94.9 fl (80-96); MEAN PLT VOLUME 10.7 fl (7.5-11.1); NEUTROPHILS 76.7 % (42.8-82.8); PLATELET COUNT 91 K/MM3 (134-434); RDW 23.7 % (11.6-15.6); WHITE BLOOD COUNT 5.8 K/mm3 (4.0-10.0)
[2016-11-08 05:56] LABS: INR 1.21 (0.82-1.09); PROTHROMBIN TIME (PATIENT) 13.4 SEC (9.98-11.88)
[2016-11-08 05:58] LABS: ACTIVATED PTT 36.1 SECONDS (26.9-34.4)
[2016-11-08 06:09] LABS: ALBUMIN 1.4 g/dl (3.4-5.0); CALCIUM 7.5 mg/dL (8.5-10.1); MAGNESIUM 1.7 mg/dL (1.8-2.4); PHOSPHOROUS 2.4 mg/dL (2.5-4.9)
[2016-11-08 06:12] LABS: BILIRUBIN,TOTAL 0.7 mg/dL (0.2-1.0); CREATININE 2.1 mg/dL (0.55-1.02)
[2016-11-08 07:37] LABS: ALLENS TEST POSITIVE; ART PUNCT SITE RIGHT RADIAL; ARTERIAL BLD GAS O2 SATURATION 96.9 % (90-98.9); ARTERIAL BLOOD GAS BASE EXCESS 5.9 meq/l (-2-2); ARTERIAL BLOOD GAS HCO3 29.5 meq/L (22-26); ARTERIAL BLOOD GAS PO2 87.1 mmHg (70-100); LPM/O2% 30%; MECH. VENT. YES; PT. ON O2? YES; TYPE OF O2 VENT
[2016-11-08 07:38] LABS: ARTERIAL BLOOD GAS pH 7.48 (7.35-7.45); VENT RATE 15; VT/PRESS 350
--- NOTE | 2016-11-08 08:56 | PN ---
Progress Note (short form) - Note Progress Note: Pt alert and responsive. Vital Signs Period Temp Pulse Resp BP Sys/Hodgson Pulse Ox Last 24 Hr 97.7 F-100.6 F 71-110 12-23 91-140/45-68 98-98 PE: GEN: tach in place, no bleeding noted. LUE: with scabbed area to skin over fistula(3 segments of 2x2cm scabbed area) No erythema or drainage. Palpable thrill/bruit above and below the scabbed area. CBC, BMP 11/08/16 05:15 11/08/16 05:15 Problem List - Problems (1) ESRD (end stage renal disease) on dialysis Assessment/Plan: s/p trach and doing well Left upper extremity with scabbed/excoriated skin over the fistula. Wound care ordered with bacitracin to the wounds Would avoid HD access in these areas, will discuss with HD nurses if these is have segment to adequately dialyze the patient without disrupting these areas. If not the patient may need temporary access. Code(s): N18.6 - END STAGE RENAL DISEASE Z99.2 - DEPENDENCE ON RENAL DIALYSIS
[2016-11-08] MEDS ORDERED: PT OWN MED DRAWER 7, Y5N ONE ×2 (09:03→21:37)
[2016-11-08] MEDS: PANTOPRAZOLE SODIUM 100 ML IVPB SCH (09:06)
[2016-11-08] MEDS: levETIRAcetam 500 MG/5 ML INJECTION VIAL IVPB SCH (09:06)
[2016-11-08] MEDS ORDERED: BACITRACIN 30 GM TUBE TOPICAL OINTMENT TP SCH (10:00)
[2016-11-08] MEDS: AMINO ACIDS/PROTEIN HYDROLYS SUGAR-FREE 30 ML PACKET PO SCH (10:00)
--- NOTE | 2016-11-08 10:58 | PN ---
Teaching Attending Note Name of Resident: Giovanni Dumas ATTENDING PHYSICIAN STATEMENT I saw and evaluated the patient. I reviewed the resident's note and discussed the case with the resident. I agree with the resident's findings and plan as documented. SUBJECTIVE: Pt seen and examined in the ICU. Vented on volume assist control, arousable to voice. Placed on CPAP/PS. OBJECTIVE: Last Vital Signs Temp Pulse Resp BP Pulse Ox 99.8 F H 102 H 21 135/64 96 11/08/16 10:00 11/08/16 10:00 11/08/16 10:30 11/08/16 10:00 11/08/16 10:30 Intake & Output 11/05/16 11/06/16 11/07/16 11/08/16 23:59 23:59 23:59 23:59 Intake Total 2158 2326 1842 500 Balance 2158 2326 1842 500 Weight 104 lb 107 lb 2 oz 113 lb 7 oz 108 lb 3.951 oz Gen: vented, awake Heart: RRR, +harsh systolic murmur LUSB Lung: scattered rhonchi Abd: soft, nontender Ext: + UE edema CBC, BMP 11/08/16 05:15 11/08/16 05:15 Active Medications Acetaminophen (Ofirmev Injection -) 700 mg IVPB Q6H-IV [facility] Last Admin: 11/08/16 09:05 Dose: 700 mg Amino Acids (Prostat Sugar-Free Packet -) 30 ml PO BID@0800,1730 [facility] Last Admin: 11/07/16 18:08 Dose: 30 ml Bacitracin (Bacitracin -) 1 applic TP DAILY [facility] Calcitriol (Rocaltrol -) 0.25 mcg PO DAILY [facility] Last Admin: 11/07/16 09:22 Dose: Not Given Pantoprazole Sodium (Protonix 40mg Ivpb (Pre-Docked)) 100 mls @ 200 mls/hr IVPB BID [facility] Last Admin: 11/08/16 09:06 Dose: 200 mls/hr Levetiracetam (Keppra Injection -) 500 mg IVPB BID [facility]IE Last Admin: 11/08/16 09:06 Dose: 500 mg Magnesium Sulfate (Magnesium Sulfate) 2 gm IVPB ONCE ONE Stop: 11/08/16 10:55 Potassium Phos/Sodium Phos (Phos-Nak Packet -) 1 packet PO BID [facility] ASSESSMENT AND PLAN: s/p PEA Cardiopulmonary Arrest s/p Hypothermia Protocol Pneumonia Septic Shock resolving Pulmonary HTN Lactic Acidosis resolved ESRD on HD r/o Anoxic Encephalopathy RLE distal DVT Hep C GI Bleed Thrombocytopenia - HD per renal - antibiotics completed - holding anticoagulation - empiric antiepileptics per neuro - spontaneous breathing trials as tolerated - can attempt PMV - will need PEG placement - enteral feeds - DVT/GI prophylaxis - can monitor on vent floor
--- NOTE | 2016-11-08 10:58 | PN ---
Physical Exam: SUBJECTIVE: Patient seen and examined at bedside. In no acute distress or with any difficulty breathing. Afebrile overnight and responsive to tactile stimuli & nods yes/no to questions. OBJECTIVE: Vital Signs Period Temp Pulse Resp BP Sys/Hodgson Pulse Ox Last 24 Hr 99.2 F-100.6 F 71-110 12-23 120-140/50-68 96-98 GENERAL: CPAP, tracheotomy tube HEENT: Atraumatic, PERRLA, No lymphadenopathy noted, moist membranes LUNGS: decreased breath sounds at the bases HEART: RRR, S1S2 ABDOMEN: Soft, nontender, nondistended EXTREMITIES: 2+ pulses, warm, well-perfused, 1+edema upper extremities ( improved from yesterday) SKIN: scabbing noted on left upper extremity at AV fistula site Laboratory Results - last 24 hr 11/02/16 11/07/16 11/08/16 05:05 14:15 05:15 WBC 5.8 RBC 2.55 L Hgb 8.2 L Hct 24.2 L MCV 94.9 MCHC 33.8 RDW 23.7 H Plt Count 91 L MPV 10.7 Neutrophils % 76.7 Lymphocytes % 9.5 Monocytes % 12.4 H Eosinophils % 1.0 Basophils % 0.4 INR PTT (Actin FS) Puncture Site Right radial ABG pH 7.49 H ABG pCO2 at Pt Temp 39.1 ABG pO2 at Pt Temp 72.0 D ABG HCO3 29.5 H ABG O2 Sat (Measured) 94.8 ABG O2 Content 12.2 L ABG Base Excess 6.0 H [place] Test Positive O2 Delivery Device Mec.vent Oxygen Flow Rate 30% Vent Mode A/c Vent Rate 15 Mechanical Rate Yes PEEP 5.0 Pressure Support Vent 350 Sodium Potassium Chloride Carbon Dioxide Anion Gap BUN Creatinine Creat Clearance w eGFR Random Glucose Calcium Phosphorus Magnesium Total Bilirubin AST ALT Alkaline Phosphatase Total Protein Albumin Hep-Induced Plt Ab Rapid 0.703 11/08/16 11/08/16 11/08/16 05:15 05:15 07:15 WBC RBC Hgb Hct MCV MCHC RDW Plt Count MPV Neutrophils % Lymphocytes % Monocytes % Eosinophils % Basophils % INR 1.21 H PTT (Actin FS) 36.1 H Puncture Site Right radial ABG pH 7.48 H ABG pCO2 at Pt Temp 39.9 ABG pO2 at Pt Temp 87.1 D ABG HCO3 29.5 H ABG O2 Sat (Measured) 96.9 ABG O2 Content 15.0 ABG Base Excess 5.9 H [place] Test Positive O2 Delivery Device Vent Oxygen Flow Rate 30% Vent Mode A/c Vent Rate 15 Mechanical Rate Yes PEEP 5.0 Pressure Support Vent 350 Sodium 139 Potassium 3.8 D Chloride 100 Carbon Dioxide 30 Anion Gap 9 BUN 41 H Creatinine 2.1 H Creat Clearance w eGFR 22.72 Random Glucose 80 Calcium 7.5 L Phosphorus 2.4 L D Magnesium 1.7 L Total Bilirubin 0.7 AST 36 D ALT 12 D Alkaline Phosphatase 115 D Total Protein 6.0 L Albumin 1.4 L Hep-Induced Plt Ab Rapid Active Medications Generic Name Dose Route Start Last Admin Trade Name Katherine PRN Reason Stop Dose Admin Acetaminophen 700 mg 11/02/16 18:45 11/08/16 09:05 Ofirmev Injection - IVPB 700 mg Q6H-IV MARIE Administration Amino Acids 30 ml 11/04/16 17:30 11/07/16 18:08 Prostat Sugar-Free Packet - PO 30 ml BID@0800,1730 MARIE Administration Bacitracin 1 applic 11/08/16 10:00 Bacitracin - TP DAILY [facility]IE Calcitriol 0.25 mcg 11/05/16 11:15 11/07/16 09:22 Rocaltrol - PO Not Given DAILY [facility] Pantoprazole Sodium 100 mls @ 200 mls/hr 11/07/16 22:00 11/08/16 09:06 Protonix 40mg Ivpb (Pre-Docked) IVPB 200 mls/hr BID MARIE Administration Levetiracetam 500 mg 10/25/16 22:00 11/08/16 09:06 Keppra Injection - IVPB 500 mg BID MARIE Administration Magnesium Sulfate 2 gm 11/08/16 10:54 Magnesium Sulfate IVPB 11/08/16 10:55 ONCE ONE Potassium Phos/Sodium Phos 1 packet 11/08/16 22:00 Phos-Nak Packet - PO BID [facility]IE ASSESSMENT/PLAN: 80 year old female with PMH of Hepatitis C, HTN, ESRD (HD MWF) who was admitted to ICU s/p Cardiopulmonary arrest. She was intubated and sedated until tracheostomy placed Sunday. #s/p PEA Cardiopulmonary Arrest s/p Hypothermia Protocol -Continue Keppra, via ng -Neurology following #Pneumonia -cultures (-), monitoring off antibiotics -S/p tracheotomy placement -f/u CXR in AM #Septic Shock -BP stable off of pressors; not on any sedation -maintain MAP >65 -may remove central line if peripheral line access can be obtained #GI Bleed? -Need to discuss PEG tube placement with surgery (GI/Interventional radiology says unsafe for them to perform due to patient's cirrhosis & varices) -monitor CBC, coags, fibrinogen level -thrombocytopenia improving #ESRD on HD -HD yesterday, does not require today -avoid nephrotoxic drugs -AV graft assessed & optimized by vascular surgery -upper extremity duplex US (-) for clots Prophylaxis/FEN -SCD's, PPI -Nepro @45/hr with 20 water, Given Prostat/Calcitriol/PhosNaK/Magnesium today Visit type - Emergency Visit Emergency Visit: Yes ED Registration Date: 10/22/16 Care time: The patient presented to the Emergency Department on the above date and was hospitalized for further evaluation of their emergent condition. - New Patient This patient is new to me today: No - Critical Care Critical Care patient: Yes Total Critical Care Time (in minutes): 45 Critical Care Statement: The care of this patient involved high complexity decision making to prevent further life threatening deterioration of the patient 's condition and/or to evalute & treat vital organ system(s) failure or risk of failure.
[2016-11-08] MEDS ORDERED: MAGNESIUM SULF 50% (8.12 MEQ/2 ML-1 GM VIAL) IVPB ONE ×2 (11:30→16:15)
--- NOTE | 2016-11-08 12:03 | PN ---
Progress Note, Physician Chief Complaint: AWAKE, +TRAHEOSTOMY AND NGT BEDSIDE DISCUSSING FEEDING TUBE PLACEMENT AND PLACEMENT SNF/LTAC - Current Medication List Current Medications: Active Medications Acetaminophen (Ofirmev Injection -) 700 mg IVPB Q6H-IV [facility] Last Admin: 11/08/16 09:05 Dose: 700 mg Amino Acids (Prosource No Carb Liquid Pkt) 30 ml PO BID@0800,1730 [facility] Bacitracin (Bacitracin -) 1 applic TP DAILY [facility] Calcitriol (Rocaltrol -) 0.25 mcg PO DAILY [facility] Last Admin: 11/07/16 09:22 Dose: Not Given Pantoprazole Sodium (Protonix 40mg Ivpb (Pre-Docked)) 100 mls @ 200 mls/hr IVPB BID [facility] Last Admin: 11/08/16 09:06 Dose: 200 mls/hr Levetiracetam (Keppra Injection -) 500 mg IVPB BID [facility] Last Admin: 11/08/16 09:06 Dose: 500 mg Potassium Phos/Sodium Phos (Phos-Nak Packet -) 1 packet PO BID [facility] - Objective Vital Signs: Vital Signs Temperature 99.8 F H 11/08/16 10:00 Pulse Rate 102 H 11/08/16 10:00 Respiratory Rate 21 11/08/16 10:30 Blood Pressure 135/64 11/08/16 10:00 O2 Sat by Pulse Oximetry (%) 96 11/08/16 10:30 Constitutional: Yes: Mild Distress Eyes: Yes: WNL HENT: Yes: WNL Neck: Yes: WNL Cardiovascular: Yes: WNL Respiratory: Yes: Mechanically Ventilated (TRACHEOSTOMY) Gastrointestinal: Yes: WNL Genitourinary: Yes: Incontinence, Other Musculoskeletal: Yes: Muscle Weakness Extremities: Yes: Other Edema: Yes Edema: LUE: 2+, RUE: 2+ Peripheral Pulses WNL: Yes Integumentary: Yes: Venous Stasis Changes, Other Wound/Incision: Yes: Dressing Dry and Intact Neurological: Yes: Pre-Existing Deficit, Weakness ...Motor Strength: LLE, RLE Psychiatric: Yes: Other Labs: CBC, BMP 11/08/16 05:15 11/08/16 05:15 INR, PTT INR 1.21 (0.82-1.09) H 11/08/16 05:15 Fibrinogen 254.0 mg/dL (238-498) 11/03/16 05:15 Problem List - Problems (1) Cardiopulmonary arrest Code(s): I46.9 - CARDIAC ARREST, CAUSE UNSPECIFIED (2) DVT (deep venous thrombosis) Code(s): I82.409 - ACUTE EMBOLISM AND THOMBOS UNSP DEEP VN UNSP LOWER EXTREMITY (3) ESRD (end stage renal disease) on dialysis Code(s): N18.6 - END STAGE RENAL DISEASE Z99.2 - DEPENDENCE ON RENAL DIALYSIS (4) HCV (hepatitis C virus) Code(s): B19.20 - UNSPECIFIED VIRAL HEPATITIS C WITHOUT HEPATIC COMA (5) Metabolic encephalopathy Code(s): G93.41 - METABOLIC ENCEPHALOPATHY (6) Pneumonia Code(s): J18.9 - PNEUMONIA, UNSPECIFIED ORGANISM (7) Respiratory failure Code(s): J96.90 - RESPIRATORY FAILURE, UNSP, UNSP W HYPOXIA OR HYPERCAPNIA (8) Dysphagia Code(s): R13.10 - DYSPHAGIA, UNSPECIFIED Assessment/Plan TRACHEOSTOMY IN PLACE AND FUNCTIONING J-TUBE WITH INTERVENTIONAL RADIOLOGY, DISCUSSED WITH DR NEVILLE AV FISTULA REVIEW WITH VASC SX , DOPPLER NEGATIVE FOR DVT UPPER EXTREMITY OOB TO CHAIR AND PT WHEN JTUBE PLACED PROSTAT MVI HD PER RENAL GIVEN CHOICES OF LTAC
--- NOTE | 2016-11-08 12:57 | PN ---
Progress Note, Physician History of Present Illness: Pt seen and examined at bedside. She is awake. She remains intubated. - Current Medication List Current Medications: Active Medications Acetaminophen (Ofirmev Injection -) 700 mg IVPB Q6H-IV [facility] Last Admin: 11/08/16 09:05 Dose: 700 mg Amino Acids (Prosource No Carb Liquid Pkt) 30 ml PO BID@0800,1730 [facility] Bacitracin (Bacitracin -) 1 applic TP DAILY [facility] Calcitriol (Rocaltrol -) 0.25 mcg PO DAILY [facility] Last Admin: 11/07/16 09:22 Dose: Not Given Pantoprazole Sodium (Protonix 40mg Ivpb (Pre-Docked)) 100 mls @ 200 mls/hr IVPB BID [facility] Last Admin: 11/08/16 09:06 Dose: 200 mls/hr Levetiracetam (Keppra Injection -) 500 mg IVPB BID [facility] Last Admin: 11/08/16 09:06 Dose: 500 mg Potassium Phos/Sodium Phos (Phos-Nak Packet -) 1 packet PO BID [facility] - Objective Vital Signs: Vital Signs Temperature 99.8 F H 11/08/16 10:00 Pulse Rate 102 H 11/08/16 10:00 Respiratory Rate 21 11/08/16 10:30 Blood Pressure 135/64 11/08/16 10:00 O2 Sat by Pulse Oximetry (%) 96 11/08/16 10:30 Constitutional: Yes: Calm Eyes: Yes: Conjunctiva Clear Neck: Yes: Other (trache) Cardiovascular: Yes: S1, S2 Respiratory: Yes: Mechanically Ventilated Gastrointestinal: Yes: Soft Genitourinary: Yes: Incontinence Musculoskeletal: Yes: Muscle Weakness Edema: Yes Edema: LUE: 1+, RUE: Trace Integumentary: Yes: Other (breakdown over area of HD access) Neurological: Yes: Confusion Labs: CBC, BMP 11/08/16 05:15 11/08/16 05:15 INR, PTT INR 1.21 (0.82-1.09) H 11/08/16 05:15 Fibrinogen 254.0 mg/dL (238-498) 11/03/16 05:15 - ....Imaging Chest X-ray: Report Reviewed Ultrasound: Report Reviewed (neg for dvt) Problem List - Problems (1) Cardiopulmonary arrest Code(s): I46.9 - CARDIAC ARREST, CAUSE UNSPECIFIED (2) DVT (deep venous thrombosis) Code(s): I82.409 - ACUTE EMBOLISM AND THOMBOS UNSP DEEP VN UNSP LOWER EXTREMITY (3) ESRD (end stage renal disease) on dialysis Code(s): N18.6 - END STAGE RENAL DISEASE Z99.2 - DEPENDENCE ON RENAL DIALYSIS (4) HCV (hepatitis C virus) Code(s): B19.20 - UNSPECIFIED VIRAL HEPATITIS C WITHOUT HEPATIC COMA (5) Respiratory failure Code(s): J96.90 - RESPIRATORY FAILURE, UNSP, UNSP W HYPOXIA OR HYPERCAPNIA Assessment/Plan Current Medicatio Current Medications Generic Name Dose Route Start Last Admin Trade Name Freq PRN Reason Stop Dose Admin Acetaminophen 700 mg 11/02/16 18:45 11/08/16 09:05 Ofirmev Injection - IVPB 700 mg Q6H-IV [facility] Administration Amino Acids 30 ml 11/08/16 17:30 Prosource No Carb Liquid Pkt PO BID@0800,1730 [facility] Bacitracin 1 applic 11/08/16 10:00 Bacitracin - TP DAILY [facility] Calcitriol 0.25 mcg 11/05/16 11:15 11/07/16 09:22 Rocaltrol - PO Not Given DAILY [facility] Pantoprazole Sodium 100 mls @ 200 mls/hr 11/07/16 22:00 11/08/16 09:06 Protonix 40mg Ivpb (Pre-Docked) IVPB 200 mls/hr BID [facility] Administration Levetiracetam 500 mg 10/25/16 22:00 11/08/16 09:06 Keppra Injection - IVPB 500 mg BID [facility] Administration Potassium Phos/Sodium Phos 1 packet 11/08/16 22:00 Phos-Nak Packet - PO BID [facility] Laboratory Tests 11/08/16 05:15 Phosphorus 2.4 L D Magnesium 1.7 L Impression 1. ESRD 2. s/p cardiopulmonary arrest 3. acute respiratory failure 4. Pneumonia 5. DVT of right leg 6. S/P Seizure following the arrest 7. Right renal complex cyst > 5cms in diameter 8. Anemia 9. Thrombocytopenia 10. H/O HCV 11. active GI bleed Plan - HD in am - vascular input appreciated - bacitracin to access site, nurses have been avoiding the scab, will continue to do so - her arms appears better today, encourage movement of her limbs as this will help with circulation - discussed with ICU team - cont feeds - trache care - cont vent support - monitor CBC - monitor phos and mag Dr Espino
--- NOTE | 2016-11-08 13:34 | PN ---
Progress Note (short form) - Note Progress Note: Vascular Surgery Pt seen and examined. 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 Using a skin marker, AVF marked for cannulation. Do not stick areas with scabs. Bacitracin to those areas to allow them to heal. Allan Crain DO
[2016-11-08] MEDS ORDERED: ACETAMINOPHEN 1000 MG/100 ML VIAL (NON FORMULARY) IVPB SCH (15:00)
--- NOTE | 2016-11-08 15:12 | CONSULT ---
Passy-Joao Valve Eval - Assessment Prior to PMV Placement Patient and/or family educated re PMV: Yes Mental Status: Awake, Alert, Attempting to Communicate O2 Sat by Pulse Oximetry (%): 98 Secretions: Moderate Amount Patient on Ventilator: Yes Patient on Trach Collar: No Suctioned: Yes Trach Size: 7.0 Inner Cannula Removed: No Cuff Status: Inflated Passy-Joao Valve in Place - Speech Characteristics Able to Phonate with PMV in place: Yes Voice Loudness: Excessive Variation, Hypophonia (needs remiinders to take a deep breath and push out words. Speaks in sentences, poor intelligibilty, aphonic. Much better on single word level, with repetition of nos. Not able to maintain voicing without cues. High distractibility. Poor memory. Repeatedly asks for her with poor retention of information.) Voice Pitch: Pitch Breaks Voice Phonatory-based Quality: Dysphonia (with intermittent euphonic voice with effort) Speech Pattern: Impaired Speech Clarity: < 25% Nasal Resonance: Normal Rate of Speech: Too Fast Voice, Other Observations: Progressively Weak Voice, Inadequate Breath Support - Assessment with PMV in Place O2 Sat by Pulse Oximetry (%): 96 Change in Mental Status with PMV in Place: No Able to Manage Secretions: Yes Pt's subjective response to PMV: Yes: Restlessness Length of time with PMV in place: 7 min Additional comments: Needs repeated suctioning intraorally to posterior pharynx and via trach before and after cuff deflation to clear secretions well before PMV placed. - Recommendations Recommendations: PMV as tolerated, Remove PMV while sleeping, Monitor Pulse Ox PMV on, Supervision while PMV on
--- NOTE | 2016-11-08 15:13 | PN ---
Progress Note, FIREBRICK LAYER - Note Progress Note: Refer to PMV eval Maintain NPO/NGT for feedings at this time. High risk of aspiration suspected with PO intake To reassess, once using PMV, for improved swallowing function
[2016-11-08] MEDS: AMINO ACIDS/PROTEIN HYDROLYS 30 ML LIQUID.PKT PO SCH (16:52)
[2016-11-08] MEDS: NAPH,MB-DB/K PH,MBDB POWDER PACKET PO SCH ×2 (20:16→22:33)
[2016-11-08] MEDS: CALCITRIOL 0.25 MCG CAPSULE (FP) PO SCH (20:17)
--- NOTE | 2016-11-08 20:38 | PN ---
Progress Note (short form) - Note Progress Note: Patient seen and examined s/p trach Last Vital Signs Temp Pulse Resp BP Pulse Ox 99.0 F 92 H 20 158/65 97 11/08/16 18:00 11/08/16 18:00 11/08/16 18:00 11/08/16 18:00 11/08/16 15:15 Cor: RSR, No murmurs, No gallops Lungs: Clear to P&A Abd: Soft, Normal bowel sounds, No organomegaly Ext:No significant edema Abnormal Lab Results 11/08/16 11/08/16 11/08/16 05:15 05:15 05:15 RBC 2.55 L Hgb 8.2 L Hct 24.2 L RDW 23.7 H Plt Count 91 L Monocytes % 12.4 H INR 1.21 H PTT (Actin FS) 36.1 H ABG pH ABG HCO3 ABG Base Excess BUN 41 H Creatinine 2.1 H Calcium 7.5 L Phosphorus 2.4 L D Magnesium 1.7 L Total Protein 6.0 L Albumin 1.4 L 11/08/16 07:15 RBC Hgb Hct RDW Plt Count Monocytes % INR PTT (Actin FS) ABG pH 7.48 H ABG HCO3 29.5 H ABG Base Excess 5.9 H BUN Creatinine Calcium Phosphorus Magnesium Total Protein Albumin Current Medications Acetaminophen (Ofirmev Injection -) 700 mg IVPB Q6H-IV PRN PRN Reason: FEVER Amino Acids (Prosource No Carb Liquid Pkt) 30 ml PO BID@0800,1730 [facility] Last Admin: 11/08/16 16:52 Dose: 30 ml Bacitracin (Bacitracin -) 1 applic TP DAILY [facility] Calcitriol (Rocaltrol -) 0.25 mcg PO DAILY [facility] Epoetin Cirilo (Epogen -) 7,000 units IVPUSH ONCE ONE Stop: 11/09/16 12:58 Levetiracetam (Keppra Oral Solution -) 500 mg NGT BID [facility] Pantoprazole Sodium (Protonix Packets For Oral Suspension -) 40 mg NGT BID [facility] Potassium Phos/Sodium Phos (Phos-Nak Packet -) 1 packet PO BID [facility] A/P Intubated 3 times this admission Pneumonia with respiratory failure S/P Seizure following the arrest- ESRD LE edema with severe hypoalbuminemia Right renal complex cyst > 5cms in diameter H/O HCV/liver disease H/O GIB Cachexia Soleal DVT Thrombocytopena/coagulopathy s/p tracheostomy today RLE distal DVT --had been on heparin. Bled actively rectally and hnce hparin was stopped. s/p ivc filter placement thrombocytopnia/coagulopathy --due to sepsis/DIC vrsus undrlying Hp. c liver disease . Will need FFP/platelets if actively bleeding. s/p cryo--11/01 for fibrinogen <100 improved anemia --bleeding plus chronic disease --ESRD/sepsis Abnormal CT--Lt. humrus dstructive lesion and hypodensities liver
[2016-11-08] MEDS ORDERED: levETIRAcetam 500 MG/5 ML ORAL SOLUTION (UNIT-DOSE CUPS) PO SCH (22:00)
[2016-11-08] MEDS ORDERED: PANTOPRAZOLE SODIUM 100 ML IVPB SCH (22:00)
[2016-11-08] MEDS ORDERED: NAPH,MB-DB/K PH,MBDB POWDER PACKET PO SCH (22:00)
[2016-11-08] MEDS ORDERED: levETIRAcetam 500 MG/5 ML INJECTION VIAL IVPB SCH (22:00)
[2016-11-08] MEDS: levETIRAcetam 500 MG/5 ML ORAL SOLUTION (UNIT-DOSE CUPS) NGT SCH (22:33)
[2016-11-08] MEDS: PANTOPRAZOLE SOD 40 MG SUSPENSION PACKET NGT SCH (22:33)
[2016-11-09 06:06] LABS: SERUM IRON 44 ug/dL (27-139); TOTAL IRON BINDING CAPACITY 91 ug/dL (250-450); UIBC 47 ug/dL (118-369)
[2016-11-09] MEDS ORDERED: CALCITRIOL 0.25 MCG CAPSULE (FP) PO SCH (10:00)
[2016-11-09] MEDS ORDERED: EPOETIN ALFA 10,000 UNIT/1 ML VIAL IVPUSH ONE (10:00)
--- NOTE | 2016-11-09 11:46 | PN ---
Progress Note (short form) - Note Progress Note: Trached/vented. 30% FiO2. Currently on acute HD. No acute events overnight. Intake & Output 11/06/16 11/07/16 11/08/16 11/09/16 23:59 23:59 23:59 23:59 Intake Total 2326 1842 600 0 Balance 2326 1842 600 0 Weight 107 lb 2 oz 113 lb 7 oz 108 lb 3.951 oz 108 lb 3.2 oz Last Vital Signs Temp Pulse Resp BP Pulse Ox 97.8 F 100 H 27 H 136/54 95 11/09/16 07:00 11/09/16 10:30 11/09/16 10:30 11/09/16 10:05 11/09/16 10:30 Active Medications Acetaminophen (Ofirmev Injection -) 700 mg IVPB Q6H-IV PRN PRN Reason: FEVER Amino Acids (Prosource No Carb Liquid Pkt) 30 ml PO BID@0800,1730 [facility] Last Admin: 11/08/16 16:52 Dose: 30 ml Bacitracin (Bacitracin -) 1 applic TP DAILY [facility] Calcitriol (Rocaltrol -) 0.25 mcg PO DAILY [facility] Levetiracetam (Keppra Oral Solution -) 500 mg NGT BID [facility] Last Admin: 11/08/16 22:33 Dose: 500 mg Pantoprazole Sodium (Protonix Packets For Oral Suspension -) 40 mg NGT BID [facility] Last Admin: 11/08/16 22:33 Dose: 40 mg Potassium Phos/Sodium Phos (Phos-Nak Packet -) 1 packet PO BID [facility] Last Admin: 11/08/16 22:33 Dose: 1 packet Gen: Trached, awake Heart: S1S2, regular Lung: scattered rhonchi Abd: soft, nontender Ext: no edema ASSESSMENT AND PLAN: S/P Trach due to failure to wean s/p PEA Cardiopulmonary Arrest s/p Hypothermia Protocol Pneumonia Septic Shock Pulmonary HTN Lactic Acidosis resolved ESRD on HD RLE distal DVT GI Bleed Thrombocytopenia - HD per renal with ultrafiltration - monitoring off antibiotics/Diflucan - Normal transfusion thresholds - empiric antiepileptics per neuro - spontaneous breathing trials as tolerated - DVT/GI prophylaxis Dr Gonzalez
[2016-11-09] MEDS ORDERED: PT OWN MED DRAWER 7, Y5N ONE ×3 (12:18→21:28)
[2016-11-09] MEDS: BACITRACIN 30 GM TUBE TOPICAL OINTMENT TP SCH (12:20)
[2016-11-09] MEDS: AMINO ACIDS/PROTEIN HYDROLYS 30 ML LIQUID.PKT PO SCH ×2 (12:20→17:02)
[2016-11-09] MEDS: levETIRAcetam 500 MG/5 ML ORAL SOLUTION (UNIT-DOSE CUPS) NGT SCH ×2 (12:22→22:24)
[2016-11-09] MEDS: NAPH,MB-DB/K PH,MBDB POWDER PACKET PO SCH ×2 (12:23→22:24)
[2016-11-09] MEDS: PANTOPRAZOLE SOD 40 MG SUSPENSION PACKET NGT SCH ×2 (12:23→22:24)
--- NOTE | 2016-11-09 12:32 | PN ---
Progress Note, REGULATORY ADMINISTRATOR - Note Progress Note: Case reviewed with staff. HD today. Confused. Distractible. Rec: PMV with RT, as tolerated, for short periods as tolerated to expedite weaning from ventilator and improve communication, swallowing and upper airway function.
--- NOTE | 2016-11-09 13:19 | PN ---
Progress Note, Physician History of Present Illness: Pt seen and examined at bedside. She is awake and appears comfortable. Pt remains on vent. She tolerated HD. - Current Medication List Current Medications: Active Medications Acetaminophen (Ofirmev Injection -) 700 mg IVPB Q6H-IV PRN PRN Reason: FEVER Amino Acids (Prosource No Carb Liquid Pkt) 30 ml PO BID@0800,1730 [facility] Last Admin: 11/09/16 12:20 Dose: 30 ml Bacitracin (Bacitracin -) 1 applic TP DAILY [facility] Last Admin: 11/09/16 12:20 Dose: 1 applic Calcitriol (Rocaltrol -) 0.25 mcg PO DAILY [facility] Levetiracetam (Keppra Oral Solution -) 500 mg NGT BID [facility] Last Admin: 11/09/16 12:22 Dose: 500 mg Pantoprazole Sodium (Protonix Packets For Oral Suspension -) 40 mg NGT BID [facility] Last Admin: 11/09/16 12:23 Dose: 40 mg Potassium Phos/Sodium Phos (Phos-Nak Packet -) 1 packet PO BID [facility] Last Admin: 11/09/16 12:23 Dose: 1 packet - Objective Vital Signs: Vital Signs Temperature 98.7 F 11/09/16 12:00 Pulse Rate 100 H 11/09/16 12:00 Respiratory Rate 16 11/09/16 12:00 Blood Pressure 124/53 11/09/16 12:00 O2 Sat by Pulse Oximetry (%) 95 11/09/16 10:30 Constitutional: Yes: Calm Eyes: Yes: Conjunctiva Clear HENT: Yes: Atraumatic Neck: Yes: Other (trache) Cardiovascular: Yes: S1, S2 Respiratory: Yes: Mechanically Ventilated Gastrointestinal: Yes: Soft Musculoskeletal: Yes: Muscle Weakness Edema: Yes Edema: LUE: Trace, RUE: Trace Wound/Incision: Yes: Dressing Dry and Intact Neurological: Yes: Other (awake) Labs: CBC, BMP 11/08/16 05:15 11/08/16 05:15 INR, PTT INR 1.21 (0.82-1.09) H 11/08/16 05:15 Fibrinogen 254.0 mg/dL (238-498) 11/03/16 05:15 Problem List - Problems (1) Cardiopulmonary arrest Code(s): I46.9 - CARDIAC ARREST, CAUSE UNSPECIFIED (2) DVT (deep venous thrombosis) Code(s): I82.409 - ACUTE EMBOLISM AND THOMBOS UNSP DEEP VN UNSP LOWER EXTREMITY (3) ESRD (end stage renal disease) on dialysis Code(s): N18.6 - END STAGE RENAL DISEASE Z99.2 - DEPENDENCE ON RENAL DIALYSIS (4) HCV (hepatitis C virus) Code(s): B19.20 - UNSPECIFIED VIRAL HEPATITIS C WITHOUT HEPATIC COMA (5) Respiratory failure Code(s): J96.90 - RESPIRATORY FAILURE, UNSP, UNSP W HYPOXIA OR HYPERCAPNIA Assessment/Plan Current Medications Generic Name Dose Route Start Last Admin Trade Name Freq PRN Reason Stop Dose Admin Acetaminophen 700 mg 11/08/16 14:24 Ofirmev Injection - IVPB Q6H-IV PRN [facility] Amino Acids 30 ml 11/08/16 17:30 11/09/16 12:20 Prosource No Carb Liquid Pkt PO 30 ml BID@0800,1730 [facility] Administration Bacitracin 1 applic 11/09/16 10:00 11/09/16 12:20 Bacitracin - TP 1 applic DAILY [facility] Administration Calcitriol 0.25 mcg 11/09/16 10:00 Rocaltrol - PO DAILY [facility] Levetiracetam 500 mg 11/08/16 22:00 11/09/16 12:22 Keppra Oral Solution - NGT 500 mg BID [facility] Administration Pantoprazole Sodium 40 mg 11/08/16 22:00 11/09/16 12:23 Protonix Packets For Oral Suspension - NGT 40 mg BID [facility] Administration Potassium Phos/Sodium Phos 1 packet 11/08/16 22:00 11/09/16 12:23 Phos-Nak Packet - PO 1 packet BID [facility] Administration Impression 1. ESRD 2. s/p cardiopulmonary arrest 3. acute respiratory failure 4. Pneumonia 5. DVT of right leg 6. S/P Seizure following the arrest 7. Right renal complex cyst > 5cms in diameter 8. Anemia 9. Thrombocytopenia 10. H/O HCV 11. active GI bleed Plan - pt tolerated HD today - cont wound care to fistula - pulmonary follow up - trache care - cont vent support - monitor CBC - monitor phos and mag Dr Espino
--- NOTE | 2016-11-09 14:07 | PN ---
Progress Note, Physician Chief Complaint: seen and examined in be no distress has NG tube - Current Medication List Current Medications: Active Medications Acetaminophen (Ofirmev Injection -) 700 mg IVPB Q6H-IV PRN PRN Reason: FEVER Amino Acids (Prosource No Carb Liquid Pkt) 30 ml PO BID@0800,1730 [facility] Last Admin: 11/09/16 12:20 Dose: 30 ml Bacitracin (Bacitracin -) 1 applic TP DAILY [facility] Last Admin: 11/09/16 12:20 Dose: 1 applic Calcitriol (Rocaltrol Liquid -) 0.25 mcg NGT DAILY [facility] Levetiracetam (Keppra Oral Solution -) 500 mg NGT BID [facility] Last Admin: 11/09/16 12:22 Dose: 500 mg Pantoprazole Sodium (Protonix Packets For Oral Suspension -) 40 mg NGT BID [facility] Last Admin: 11/09/16 12:23 Dose: 40 mg Potassium Phos/Sodium Phos (Phos-Nak Packet -) 1 packet PO BID [facility] Last Admin: 11/09/16 12:23 Dose: 1 packet - Objective Vital Signs: Vital Signs Temperature 98.7 F 11/09/16 12:00 Pulse Rate 100 H 11/09/16 12:00 Respiratory Rate 20 11/09/16 13:53 Blood Pressure 124/53 11/09/16 12:00 O2 Sat by Pulse Oximetry (%) 95 11/09/16 10:30 Constitutional: Yes: Calm HENT: Yes: Other (ngt) Neck: Yes: Other (trach) Cardiovascular: Yes: Tachycardia, S1, S2 Respiratory: Yes: Mechanically Ventilated, Rhonchi Gastrointestinal: Yes: Soft Edema: No Labs: CBC, BMP 11/08/16 05:15 11/08/16 05:15 INR, PTT INR 1.21 (0.82-1.09) H 11/08/16 05:15 Fibrinogen 254.0 mg/dL (238-498) 11/03/16 05:15 Problem List - Problems (1) DVT (deep venous thrombosis) Assessment/Plan: s/p IVC filter was on antivoagulants but bleeding so stopped Code(s): I82.409 - ACUTE EMBOLISM AND THOMBOS UNSP DEEP VN UNSP LOWER EXTREMITY (2) ESRD (end stage renal disease) on dialysis Assessment/Plan: HD per renal monitor l=mag and phos Code(s): N18.6 - END STAGE RENAL DISEASE Z99.2 - DEPENDENCE ON RENAL DIALYSIS (3) Respiratory failure Assessment/Plan: failure to wean s/p trach Code(s): J96.90 - RESPIRATORY FAILURE, UNSP, UNSP W HYPOXIA OR HYPERCAPNIA (4) Anemia Assessment/Plan: epogen during HD Code(s): D64.9 - ANEMIA, UNSPECIFIED Qualifiers: Other causes of anemia: chronic disease, kidney (5) Anoxic brain damage Assessment/Plan: trach to get J tube then placement keppra for sz ppx Code(s): G93.1 - ANOXIC BRAIN DAMAGE, NOT ELSEWHERE CLASSIFIED
[2016-11-09] MEDS: CALCITRIOL 1 MCG/ML BOT NGT SCH (16:40)
[2016-11-09] MEDS: ACETAMINOPHEN 1000 MG/100 ML VIAL (NON FORMULARY) IVPB PRN (17:12)
[2016-11-10 08:38] LABS: EOSINOPHIL 0.6 % (0-4.5); MCHC 33.4 g/dl (32.0-36.0); MEAN CELL VOLUME 95.9 fl (80-96); NEUTROPHILS 69.2 % (42.8-82.8); PLATELET COUNT 106 K/MM3 (134-434); RDW 23.9 % (11.6-15.6); WHITE BLOOD COUNT 4.1 K/mm3 (4.0-10.0)
[2016-11-10 08:59] LABS: ALBUMIN 1.5 g/dl (3.4-5.0); BILIRUBIN,TOTAL 0.8 mg/dL (0.2-1.0); CALCIUM 7.8 mg/dL (8.5-10.1); CREATININE 2.1 mg/dL (0.55-1.02); MAGNESIUM 1.8 mg/dL (1.8-2.4); PHOSPHOROUS 2.1 mg/dL (2.5-4.9); TOT PROT 5.9 g/dl (6.4-8.2)
--- NOTE | 2016-11-10 09:03 | PN ---
Progress Note, Physician Chief Complaint: awake alert in bed NG tube - Current Medication List Current Medications: Active Medications Acetaminophen (Ofirmev Injection -) 700 mg IVPB Q6H-IV PRN PRN Reason: FEVER Last Admin: 11/09/16 17:12 Dose: 700 mg Amino Acids (Prosource No Carb Liquid Pkt) 30 ml PO BID@0800,1730 [facility] Last Admin: 11/09/16 17:02 Dose: 30 ml Bacitracin (Bacitracin -) 1 applic TP DAILY [facility] Last Admin: 11/09/16 12:20 Dose: 1 applic Calcitriol (Rocaltrol Liquid -) 0.25 mcg NGT DAILY [facility] Last Admin: 11/09/16 16:40 Dose: 0.25 mcg Levetiracetam (Keppra Oral Solution -) 500 mg NGT BID [facility] Last Admin: 11/09/16 22:24 Dose: 500 mg Pantoprazole Sodium (Protonix Packets For Oral Suspension -) 40 mg NGT BID [facility] Last Admin: 11/09/16 22:24 Dose: 40 mg Potassium Phos/Sodium Phos (Phos-Nak Packet -) 1 packet PO BID [facility] Last Admin: 11/09/16 22:24 Dose: 1 packet - Objective Vital Signs: Vital Signs Temperature 98.8 F 11/10/16 03:00 Pulse Rate 102 H 11/09/16 19:00 Respiratory Rate 15 11/10/16 06:05 Blood Pressure 150/58 11/09/16 19:00 O2 Sat by Pulse Oximetry (%) 97 11/09/16 21:00 Constitutional: Yes: Calm Neck: Yes: Other (trach) Cardiovascular: Yes: Regular Rate and Rhythm, S1, S2 Respiratory: Yes: Mechanically Ventilated Gastrointestinal: Yes: Normal Bowel Sounds, Soft Neurological: Yes: Pre-Existing Deficit Labs: CBC, BMP 11/10/16 06:30 INR, PTT INR 1.21 (0.82-1.09) H 11/08/16 05:15 Fibrinogen 254.0 mg/dL (238-498) 11/03/16 05:15 Problem List - Problems (1) DVT (deep venous thrombosis) Assessment/Plan: s/p IVC filter was on antivoagulants but bleeding so stopped Code(s): I82.409 - ACUTE EMBOLISM AND THOMBOS UNSP DEEP VN UNSP LOWER EXTREMITY (2) ESRD (end stage renal disease) on dialysis Assessment/Plan: HD per renal monitor l=mag and phos Code(s): N18.6 - END STAGE RENAL DISEASE Z99.2 - DEPENDENCE ON RENAL DIALYSIS (3) Respiratory failure Assessment/Plan: failure to wean s/p trach PMW to start PO trials Code(s): J96.90 - RESPIRATORY FAILURE, UNSP, UNSP W HYPOXIA OR HYPERCAPNIA (4) Anemia Assessment/Plan: epogen during HD Code(s): D64.9 - ANEMIA, UNSPECIFIED Qualifiers: Other causes of anemia: chronic disease, kidney (5) Anoxic brain damage Assessment/Plan: francesco patel for sz ppx black on board has NG tube PMV to start po trials and the nassess the need for j tube if needed LTAP for placement Code(s): G93.1 - ANOXIC BRAIN DAMAGE, NOT ELSEWHERE CLASSIFIED
[2016-11-10] MEDS ORDERED: PT OWN MED DRAWER 7, Y5N ONE ×4 (09:32→22:30)
[2016-11-10] MEDS: AMINO ACIDS/PROTEIN HYDROLYS 30 ML LIQUID.PKT PO SCH ×2 (09:35→16:44)
[2016-11-10] MEDS: BACITRACIN 30 GM TUBE TOPICAL OINTMENT TP SCH (09:36)
[2016-11-10] MEDS: PANTOPRAZOLE SOD 40 MG SUSPENSION PACKET NGT SCH ×2 (09:36→22:31)
[2016-11-10] MEDS: NAPH,MB-DB/K PH,MBDB POWDER PACKET PO SCH ×2 (09:36→22:31)
[2016-11-10] MEDS: levETIRAcetam 500 MG/5 ML ORAL SOLUTION (UNIT-DOSE CUPS) NGT SCH ×2 (09:40→22:31)
[2016-11-10] MEDS: CALCITRIOL 1 MCG/ML BOT NGT SCH (11:36)
--- NOTE | 2016-11-10 14:06 | PN ---
Progress Note, Physician History of Present Illness: Pt seen and examined at bedside. She is awake and appears comfortable. - Current Medication List Current Medications: Active Medications Acetaminophen (Ofirmev Injection -) 700 mg IVPB Q6H-IV PRN PRN Reason: FEVER Last Admin: 11/09/16 17:12 Dose: 700 mg Amino Acids (Prosource No Carb Liquid Pkt) 30 ml PO BID@0800,1730 [facility] Last Admin: 11/10/16 09:35 Dose: 30 ml Bacitracin (Bacitracin -) 1 applic TP DAILY [facility] Last Admin: 11/10/16 09:36 Dose: 1 applic Calcitriol (Rocaltrol Liquid -) 0.25 mcg NGT DAILY [facility] Last Admin: 11/10/16 11:36 Dose: 0.25 mcg Levetiracetam (Keppra Oral Solution -) 500 mg NGT BID [facility] Last Admin: 11/10/16 09:40 Dose: 500 mg Pantoprazole Sodium (Protonix Packets For Oral Suspension -) 40 mg NGT BID [facility] Last Admin: 11/10/16 09:36 Dose: 40 mg Potassium Phos/Sodium Phos (Phos-Nak Packet -) 1 packet PO BID [facility] Last Admin: 11/10/16 09:36 Dose: 1 packet - Objective Vital Signs: Vital Signs Temperature 98.1 F 11/10/16 11:00 Pulse Rate 86 11/10/16 11:00 Respiratory Rate 15 11/10/16 11:00 Blood Pressure 142/65 11/10/16 11:00 O2 Sat by Pulse Oximetry (%) 96 11/10/16 10:30 Constitutional: Yes: Calm Eyes: Yes: Conjunctiva Clear HENT: Yes: Atraumatic Neck: Yes: Supple Cardiovascular: Yes: S1, S2 Respiratory: Yes: Mechanically Ventilated Gastrointestinal: Yes: Soft Genitourinary: Yes: Incontinence Musculoskeletal: Yes: Muscle Weakness Edema: Yes Neurological: Yes: Confusion Labs: CBC, BMP 11/10/16 06:30 11/10/16 06:30 INR, PTT INR 1.21 (0.82-1.09) H 11/08/16 05:15 Fibrinogen 254.0 mg/dL (238-498) 11/03/16 05:15 Problem List - Problems (1) Cardiopulmonary arrest Code(s): I46.9 - CARDIAC ARREST, CAUSE UNSPECIFIED (2) DVT (deep venous thrombosis) Code(s): I82.409 - ACUTE EMBOLISM AND THOMBOS UNSP DEEP VN UNSP LOWER EXTREMITY (3) ESRD (end stage renal disease) on dialysis Code(s): N18.6 - END STAGE RENAL DISEASE Z99.2 - DEPENDENCE ON RENAL DIALYSIS (4) HCV (hepatitis C virus) Code(s): B19.20 - UNSPECIFIED VIRAL HEPATITIS C WITHOUT HEPATIC COMA (5) Respiratory failure Code(s): J96.90 - RESPIRATORY FAILURE, UNSP, UNSP W HYPOXIA OR HYPERCAPNIA Assessment/Plan Current Medications Generic Name Dose Route Start Last Admin Trade Name Freq PRN Reason Stop Dose Admin Acetaminophen 700 mg 11/08/16 14:24 11/09/16 17:12 Ofirmev Injection - IVPB 700 mg Q6H-IV PRN Administration FEVER Amino Acids 30 ml 11/08/16 17:30 11/10/16 09:35 Prosource No Carb Liquid Pkt PO 30 ml BID@0800,1730 MARIE Administration Bacitracin 1 applic 11/09/16 10:00 11/10/16 09:36 Bacitracin - TP 1 applic DAILY MARIE Administration Calcitriol 0.25 mcg 11/09/16 13:32 11/10/16 11:36 Rocaltrol Liquid - NGT 0.25 mcg DAILY MARIE Administration Levetiracetam 500 mg 11/08/16 22:00 11/10/16 09:40 Keppra Oral Solution - NGT 500 mg BID MARIE Administration Pantoprazole Sodium 40 mg 11/08/16 22:00 11/10/16 09:36 Protonix Packets For Oral Suspension - NGT 40 mg BID MARIE Administration Potassium Phos/Sodium Phos 1 packet 11/08/16 22:00 11/10/16 09:36 Phos-Nak Packet - PO 1 packet BID MARIE Administration Impression 1. ESRD 2. s/p cardiopulmonary arrest 3. acute respiratory failure 4. Pneumonia 5. DVT of right leg 6. S/P Seizure following the arrest 7. Right renal complex cyst > 5cms in diameter 8. Anemia 9. Thrombocytopenia 10. H/O HCV 11. active GI bleed Plan - will arrange for HD in am - pt has antibodies and can not get blood on HD - discussed with medical attending - trache care - cont vent support - monitor CBC - monitor phos and mag - wound care to fistula Dr Espino
--- NOTE | 2016-11-10 16:01 | PN ---
Progress Note, CROSS TIE MAKER - Note Progress Note: Confused. Distractible. Continue PMV with RT, as tolerated, for short periods as tolerated to expedite weaning from ventilator and improve communication, swallowing and upper airway function. Hopefully with successful pmv use, speech/swallow function will improve. If so MBS next week to determine if PO trials can be initiated. May need PEG.
--- NOTE | 2016-11-10 16:18 | PN ---
Progress Note (short form) - Note Progress Note: PULMONARY FAMILY IN ATTENDANCE HAS PMV IN PLACE FOR 30 MINUTES APPEARS TACHYPNEIC WILL REPLACE ON VENT FEBRILE/APPEARS CHRONICALLY ILL TRACH IN PLACE DIMINISHED BREATH SOUNDS WITH SCATTERED CRACKLES S1S2 IRREG BS+ LESS EDEMA LOWER EXT LABS/MEDS/NOTES/IMAGING/MICRO/ABG REVIEWED S/P Trach due to failure to wean s/p PEA Cardiopulmonary Arrest s/p Hypothermia Protocol Pneumonia Septic Shock Pulmonary HTN Lactic Acidosis resolved ESRD on HD RLE distal DVT GI Bleed Thrombocytopenia - HD per renal with ultrafiltration - monitoring off antibiotics/Diflucan - Normal transfusion thresholds - empiric antiepileptics per neuro - spontaneous breathing trials as tolerated - DVT/GI prophylaxis Rm ALVA MD
[2016-11-10] MEDS: ACETAMINOPHEN 1000 MG/100 ML VIAL (NON FORMULARY) IVPB PRN (16:58)
--- NOTE | 2016-11-10 17:16 | PN ---
Progress Note (short form) - Note Progress Note: Patient seen and examined Awake , alert, responsive Last Vital Signs Temp Pulse Resp BP Pulse Ox 101.0 F H 86 21 151/58 93 L 11/10/16 15:33 11/10/16 15:33 11/10/16 15:33 11/10/16 15:33 11/10/16 15:39 HEENT: JUAN, EOM Intact Neck: trach Cor: RSR, No murmurs, No gallops Lungs: diminished breath sounds bilaterally Abd: Soft, Normal bowel sounds, No organomegaly Ext:No significant edema Skin: No rashes, Integument intact CBC, BMP 11/10/16 06:30 11/10/16 06:30 Current Medications Generic Name Dose Route Start Last Admin Trade Name Freq PRN Reason Stop Dose Admin Acetaminophen 700 mg 11/08/16 14:24 11/10/16 16:58 Ofirmev Injection - IVPB 700 mg Q6H-IV PRN Administration FEVER Amino Acids 30 ml 11/08/16 17:30 11/10/16 16:44 Prosource No Carb Liquid Pkt PO 30 ml BID@0800,1730 MARIE Administration Bacitracin 1 applic 11/09/16 10:00 11/10/16 09:36 Bacitracin - TP 1 applic DAILY MARIE Administration Calcitriol 0.25 mcg 11/09/16 13:32 11/10/16 11:36 Rocaltrol Liquid - NGT 0.25 mcg DAILY MARIE Administration Epoetin Cirilo 6,000 unit 11/11/16 14:11 Procrit - IVPUSH 11/11/16 14:12 ONCE ONE Levetiracetam 500 mg 11/08/16 22:00 11/10/16 09:40 Keppra Oral Solution - NGT 500 mg BID MARIE Administration Pantoprazole Sodium 40 mg 11/08/16 22:00 11/10/16 09:36 Protonix Packets For Oral Suspension - NGT 40 mg BID MARIE Administration Potassium Phos/Sodium Phos 1 packet 11/08/16 22:00 11/10/16 09:36 Phos-Nak Packet - PO 1 packet BID MARIE Administration Impression: S/P cardiorespiratory arrest Septic shock Respiratory Insufficiency ESRD/HD S/P trach Anemia- chronic disease, blood letting, ineffective erythropoiesis blood loss Thrombocytopenia- recovering. Coagulopathy Plan : Transfusion of packed cells. Problem List - Problems (1) Cardiopulmonary arrest Code(s): I46.9 - CARDIAC ARREST, CAUSE UNSPECIFIED (2) DVT (deep venous thrombosis) Code(s): I82.409 - ACUTE EMBOLISM AND THOMBOS UNSP DEEP VN UNSP LOWER EXTREMITY (3) ESRD (end stage renal disease) on dialysis Code(s): N18.6 - END STAGE RENAL DISEASE Z99.2 - DEPENDENCE ON RENAL DIALYSIS (4) HCV (hepatitis C virus) Code(s): B19.20 - UNSPECIFIED VIRAL HEPATITIS C WITHOUT HEPATIC COMA (5) Respiratory failure Code(s): J96.90 - RESPIRATORY FAILURE, UNSP, UNSP W HYPOXIA OR HYPERCAPNIA (6) Pneumonia Code(s): J18.9 - PNEUMONIA, UNSPECIFIED ORGANISM
[2016-11-11 07:26] LABS: BASOPHIL 0.8 % (0-2.0); EOSINOPHIL 1.1 % (0-4.5); MCH 31.9 pg (25.7-33.7); MEAN CELL VOLUME 96.7 fl (80-96); MEAN PLT VOLUME 9.5 fl (7.5-11.1); NEUTROPHILS 69.5 % (42.8-82.8); PLATELET COUNT 119 K/MM3 (134-434); RDW 24.3 % (11.6-15.6); WHITE BLOOD COUNT 4.9 K/mm3 (4.0-10.0)
[2016-11-11] MEDS: AMINO ACIDS/PROTEIN HYDROLYS 30 ML LIQUID.PKT PO SCH ×2 (09:15→18:19)
[2016-11-11] MEDS: BACITRACIN 30 GM TUBE TOPICAL OINTMENT TP SCH (09:30)
[2016-11-11] MEDS: PANTOPRAZOLE SOD 40 MG SUSPENSION PACKET NGT SCH ×3 (10:00→22:42)
[2016-11-11] MEDS: levETIRAcetam 500 MG/5 ML ORAL SOLUTION (UNIT-DOSE CUPS) NGT SCH ×3 (10:00→22:41)
[2016-11-11] MEDS ORDERED: MIDAZOLAM HCL 2 MG/2 ML SINGLE DOSE VIAL ONE ×2 (10:03)
[2016-11-11] MEDS ORDERED: PROPOFOL 20 ML ONE (10:03)
[2016-11-11] MEDS: NAPH,MB-DB/K PH,MBDB POWDER PACKET PO SCH ×3 (10:54→22:42)
--- NOTE | 2016-11-11 11:03 | OP ---
Operative Note - Note: Operative Date: 11/11/16 Pre-Operative Diagnosis: Respiratory Failure Operation: Tracheostomy change from Portex #7 to Portex #6 (cuffed and fenestrated) Findings: Tube exchange done without problems. Minor bleeding around tracheostomy site. Patient ventilating without difficulty. Surgeon: Curt Allred Anesthesiologist/INORGANIC CHEMISTRY TEACHER: Allan Velasquez Estimated Blood Loss (mls): 3 Operative Report Dictated: Yes
--- NOTE | 2016-11-11 11:10 | OP ---
- Note: Patient Name: Sima Bullock MR#: [id number] Procedure Date: 11/11/16 Preoperative Diagnosis: Respiratory failure. Postoperative Diagnosis: same. Procedure: 1. Flexible Bronchoscopy; 2. Percutaneous tracheostomy with #7 Portex; Indication: Respiratory failure; Surgeon(s): Curt Allred MD Cosurgeon: АННА Anesthesia: Dr. Allan Velasquez at bedside but no sedation administered; Findings: Tracheostomy balloon was bitten by patient. Specimens Sent: 1. na; Complications: none Drains / Tubes / Catheters: na Hardware / Implants: na Blood / Fluid Losses: minimal Post-Operative Condition: Stable. Indications: This patient is a 80 year-old female with ESRD and HCV s/p cardiopulmonary arrest and respiratory failure. Last night the patient bit the outside balloon for the cuff and the inside cuff was not maintaining volumes. Because of her improving respiratory status and tape on the outside balloon, she maintained good volumes overnight. However, I recommended a change to her as this was not a good long-term solution. Risks, benefits, and alternatives of the procedure were discussed with her and he agreed. All questions were addressed and her family agreed. Details of Procedure: The procedure was done at the bedside. I positioned her after getting her on monitoring and increasing her oxygen FiO2 to 100%. I then used the tube exchanger and changed the tracheostomy to a smaller one. She tolerated it well. The cuff was inflated. Her volumes were good without leak. There was no significant bleeding and placement was good.
--- NOTE | 2016-11-11 11:21 | PROC ---
Central Line Insertion - Procedure Note TIME OUT performed prior to this procedure with verbal confirmation of correct patient identity, correct side, agreement of the procedure, correct patient position, availability of necessary equipment. The consent form is complete and accurate. Risk of possible infection, bleeding and pneumothorax have been discussed with the patient. Safety precautions based on patient history or medication use has been addressed. Indication: Poor Venous Access Consent on Chart: Yes Central Line: Triple Lumen Catheter Position: Supine Area prepped with Chlorhexidine solution then draped using sterile barrier protection. Anesthesia: Lidocaine 1% Technique used: Seldinger Ultrasound Guided Assistance: No Site: Right Femoral Dark venous non-pulsatile flow noted from hub of needle. The catheter was introduced. Guide wire removed intact. Each port aspirated then flushed with sterile normal saline and capped. Line secured to skin with silk suture. Biopatch placed around base of line. Sterile occlusive dressing applied. No complications. Patient tolerated the procedure well. A right TLC was placed to obtain access for exchange of trach today.
--- NOTE | 2016-11-11 12:04 | PN ---
Progress Note, Physician History of Present Illness: Renal f/u Pt couldn't be dialyzed via the fistula because of swelling and excoriations over the AVF which is pulsatile On ventilator via a tracheostomy Low grade fever Right femoral line inserted earlier - Current Medication List Current Medications: Active Medications Acetaminophen (Ofirmev Injection -) 700 mg IVPB Q6H-IV PRN PRN Reason: FEVER Last Admin: 11/10/16 16:58 Dose: 700 mg Amino Acids (Prosource No Carb Liquid Pkt) 30 ml PO BID@0800,1730 [facility] Last Admin: 11/11/16 09:15 Dose: 30 ml Bacitracin (Bacitracin -) 1 applic TP DAILY [facility] Last Admin: 11/10/16 09:36 Dose: 1 applic Calcitriol (Rocaltrol Liquid -) 0.25 mcg NGT DAILY [facility] Last Admin: 11/10/16 11:36 Dose: 0.25 mcg Epoetin Cirilo (Procrit -) 6,000 unit IVPUSH ONCE ONE Stop: 11/11/16 14:12 Levetiracetam (Keppra Oral Solution -) 500 mg NGT BID [facility] Last Admin: 11/10/16 22:31 Dose: 500 mg Pantoprazole Sodium (Protonix Packets For Oral Suspension -) 40 mg NGT BID [facility] Last Admin: 11/10/16 22:31 Dose: 40 mg Potassium Phos/Sodium Phos (Phos-Nak Packet -) 1 packet PO BID [facility] Last Admin: 11/10/16 22:31 Dose: 1 packet - Objective Vital Signs: Vital Signs Temperature 100 F H 11/11/16 10:00 Pulse Rate 92 H 11/11/16 10:00 Respiratory Rate 30 H 11/11/16 10:26 Blood Pressure 148/73 11/11/16 10:00 O2 Sat by Pulse Oximetry (%) 93 L 11/10/16 15:39 Constitutional: Yes: No Distress Cardiovascular: Yes: S1, S2 Respiratory: Yes: Other (Decreased BS at bases) Gastrointestinal: Yes: Soft, Distention. 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 ESRD with difficult AV access 2. s/p cardiopulmonary arrest 3. Acute respiratory failure with tracheostomy 4. Pneumonia 5. DVT of right leg 6. S/P Seizure following the arrest 7. Right renal complex cyst > 5cms in diameter 8. Anemia with GIB in the past 9. Thrombocytopenia 10. H/O HCV Plan AVF will need to be re evaluated by vascular sx however for today to change the femoral catheter to a trialysis catheter Repeat K pre HD and to use the a K3 bath To remove fluid as tolerated Discussed with the Surgical PA and HD team Dr Mackay
--- NOTE | 2016-11-11 12:27 | PN ---
Progress Note, Physician Chief Complaint: HAD D/W SURGEON & RN PATIENT AWAKE FOLLOWS COMMANDS REMEMBERS ME - Current Medication List Current Medications: Active Medications Acetaminophen (Ofirmev Injection -) 700 mg IVPB Q6H-IV PRN PRN Reason: FEVER Last Admin: 11/10/16 16:58 Dose: 700 mg Amino Acids (Prosource No Carb Liquid Pkt) 30 ml PO BID@0800,1730 [facility] Last Admin: 11/11/16 09:15 Dose: 30 ml Bacitracin (Bacitracin -) 1 applic TP DAILY [facility] Last Admin: 11/10/16 09:36 Dose: 1 applic Calcitriol (Rocaltrol Liquid -) 0.25 mcg NGT DAILY [facility] Last Admin: 11/10/16 11:36 Dose: 0.25 mcg Epoetin Cirilo (Procrit -) 6,000 unit IVPUSH ONCE ONE Stop: 11/11/16 14:12 Levetiracetam (Keppra Oral Solution -) 500 mg NGT BID [facility] Last Admin: 11/10/16 22:31 Dose: 500 mg Pantoprazole Sodium (Protonix Packets For Oral Suspension -) 40 mg NGT BID [facility] Last Admin: 11/10/16 22:31 Dose: 40 mg Potassium Phos/Sodium Phos (Phos-Nak Packet -) 1 packet PO BID [facility] Last Admin: 11/10/16 22:31 Dose: 1 packet - Objective Vital Signs: Vital Signs Temperature 100 F H 11/11/16 10:00 Pulse Rate 92 H 11/11/16 10:00 Respiratory Rate 30 H 11/11/16 11:00 Blood Pressure 148/73 11/11/16 10:00 O2 Sat by Pulse Oximetry (%) 93 L 11/10/16 15:39 Cardiovascular: Yes: WNL Respiratory: Yes: WNL Gastrointestinal: Yes: WNL Labs: CBC, BMP 11/11/16 06:30 11/10/16 06:30 INR, PTT INR 1.21 (0.82-1.09) H 11/08/16 05:15 Fibrinogen 254.0 mg/dL (238-498) 11/03/16 05:15 Problem List - Problems (1) Cardiopulmonary arrest Code(s): I46.9 - CARDIAC ARREST, CAUSE UNSPECIFIED (2) DVT (deep venous thrombosis) Code(s): I82.409 - ACUTE EMBOLISM AND THOMBOS UNSP DEEP VN UNSP LOWER EXTREMITY (3) ESRD (end stage renal disease) on dialysis Code(s): N18.6 - END STAGE RENAL DISEASE Z99.2 - DEPENDENCE ON RENAL DIALYSIS (4) Pneumonia Code(s): J18.9 - PNEUMONIA, UNSPECIFIED ORGANISM (5) Respiratory failure Code(s): J96.90 - RESPIRATORY FAILURE, UNSP, UNSP W HYPOXIA OR HYPERCAPNIA Assessment/Plan (1) DVT (deep venous thrombosis) Assessment/Plan: s/p IVC filter no anticoagulants 2/2 bleeding Code(s): I82.409 - ACUTE EMBOLISM AND THOMBOS UNSP DEEP VN UNSP LOWER EXTREMITY (2) ESRD (end stage renal disease) on dialysis Assessment/Plan: HD per renal -> need access surg on case for duc monitor l=mag and phos Code(s): N18.6 - END STAGE RENAL DISEASE Z99.2 - DEPENDENCE ON RENAL DIALYSIS (3) Respiratory failure Assessment/Plan: failure to wean s/p trach PMW to start PO trials Code(s): J96.90 - RESPIRATORY FAILURE, UNSP, UNSP W HYPOXIA OR HYPERCAPNIA (4) Anemia Assessment/Plan: epogen during HD Code(s): D64.9 - ANEMIA, UNSPECIFIED Qualifiers: Other causes of anemia: chronic disease, kidney (5) Anoxic brain damage Assessment/Plan: francesco patel for sz ppx nutriton on board has NG tube PMV to start po trials and the nassess the need for j tube if needed LTAP for placement Code(s): G93.1 - ANOXIC BRAIN DAMAGE, NOT ELSEWHERE CLASSIFIED PASTOR ROSS
--- NOTE | 2016-11-11 12:34 | PN ---
Progress Note (short form) - Note Progress Note: PULMONARY ON VENT/PMV ON HOLD FOR NOW FEBRILE/APPEARS CHRONICALLY ILL TRACH IN PLACE/BLOOD SECRETIONS AROUND TRACH DIMINISHED BREATH SOUNDS WITH SCATTERED CRACKLES S1S2 IRREG BS+ LESS EDEMA LOWER EXT LABS/MEDS/NOTES/IMAGING/MICRO/ABG REVIEWED S/P Trach due to failure to wean s/p PEA Cardiopulmonary Arrest s/p Hypothermia Protocol Pneumonia Septic Shock Pulmonary HTN Lactic Acidosis resolved ESRD on HD RLE distal DVT GI Bleed Thrombocytopenia - HD per renal with ultrafiltration - monitoring off antibiotics/Diflucan - Normal transfusion thresholds - empiric antiepileptics per neuro - spontaneous breathing trials as tolerated - DVT/GI prophylaxis Rm ALVA MD
[2016-11-11] MEDS: CALCITRIOL 1 MCG/ML BOT NGT SCH (12:40)
[2016-11-11 13:14] LABS: PLATELET COMMENT2 NO CLOTTING DETECTED; PLATELET COMMENT3 FEW LARGE PLTS; PLATELET ESTIMATE SLT DECREASED (NORMAL); POLYCHROMASIA 2+
[2016-11-11 13:15] LABS: ANISOCYTOSIS 2+; HYPOCHROMIA 2+; MICROCYTOSIS 1+; POIKILOCYTOSIS 1+; TOXIC GRANULATION FEW
[2016-11-11] MEDS: ACETAMINOPHEN 1000 MG/100 ML VIAL (NON FORMULARY) IVPB PRN (13:15)
--- NOTE | 2016-11-11 13:35 | RAPID ---
Physical Examination Vital Signs: Vital Signs Temperature 99.8 F H 11/11/16 12:30 Pulse Rate 92 H 11/11/16 10:00 Respiratory Rate 30 H 11/11/16 11:00 Blood Pressure 148/73 11/11/16 10:00 O2 Sat by Pulse Oximetry (%) 93 L 11/10/16 15:39 Labs: CBC, BMP 11/11/16 06:30 11/10/16 06:30 Rapid Response - Rapid Response Assessment: Rapid response called; patient bleeding from open ports during Shiley insertion , approximately 100 mL EBL. On arrival: P 104, BP 124/54, RR 20, SpO2 100%. Patient in no distress. Will repeat CBC. 1 unit PRBC empirically ordered as last Hgb 7.9. 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 Please re-call if needed. [phone].
--- NOTE | 2016-11-11 13:52 | PROC ---
Central Line Insertion - Procedure Note TIME OUT performed prior to this procedure with verbal confirmation of correct patient identity, correct side, agreement of the procedure, correct patient position, availability of necessary equipment. The consent form is complete and accurate. Risk of possible infection, bleeding and pneumothorax have been discussed with the patient. Safety precautions based on patient history or medication use has been addressed. Central Line: Dialysis Cath, Tri Lumen Position: Supine Area prepped with Chlorhexidine solution then draped using sterile barrier protection. Anesthesia: Lidocaine 1% Technique used: Seldinger Ultrasound Guided Assistance: No Site: Left Femoral Dark venous non-pulsatile flow noted from hub of needle. The catheter was introduced. Guide wire removed intact. Each port aspirated then flushed with sterile normal saline and capped. Line secured to skin with silk suture. Biopatch placed around base of line. Sterile occlusive dressing applied. Port open during/after placement and about 100cc blood was lost . Rapid response called, pressure was stable thruout the response without loss of consciousness/ vitals.
--- NOTE | 2016-11-11 14:00 | PN ---
Progress Note (short form) - Note Progress Note: Placed Right TLC this am for IV access for tach exchange. Then I was informed that her she wasn't able to have HD becasue of LUE swelling and concern for hematoma. Her arm remains stable and soft. A left femoral shiley catheter was placed becasue the patient had no HD access and wanted leave the right groin abvaible if needed. After HD today may remove the right groin line if the HD was completed without difficulty, since the line has an additional side port. D/ w Dr. Crain and will plan for possible permacath and further evaluation of her LUE access. VS after second procedure 129/52, b/l groins c/d/i no evidence of hematoma with distal pulses intact. Problem List - Problems (1) ESRD (end stage renal disease) on dialysis Code(s): N18.6 - END STAGE RENAL DISEASE Z99.2 - DEPENDENCE ON RENAL DIALYSIS
[2016-11-11] MEDS ORDERED: EPOETIN ALFA 3,000 UNIT/1 ML ML IVPUSH ONE (14:11)
[2016-11-11 14:16] LABS: BASOPHIL 0.5 % (0-2.0); EOSINOPHIL 1.8 % (0-4.5); MCH 31.5 pg (25.7-33.7); MCHC 32.5 g/dl (32.0-36.0); MEAN PLT VOLUME 9.3 fl (7.5-11.1); NEUTROPHILS 71.8 % (42.8-82.8); PLATELET COUNT 119 K/MM3 (134-434); RDW 24.7 % (11.6-15.6); WHITE BLOOD COUNT 5.6 K/mm3 (4.0-10.0)
[2016-11-11 14:23] LABS: CALCIUM 7.9 mg/dL (8.5-10.1); CREATININE 2.9 mg/dL (0.55-1.02)
[2016-11-11] MEDS ORDERED: POTASSIUM CHLORIDE 40 MEQ/30 ML UNIT DOSE CUP NGT ONE (15:11)
[2016-11-11] MEDS: ACETAMINOPHEN 650 MG/20.3 ML ORAL SOLUTION (CUPS) NGT PRN (22:42)
[2016-11-12 07:22] LABS: BASOPHIL 0.8 % (0-2.0); EOSINOPHIL 2.2 % (0-4.5); MCHC 33.3 g/dl (32.0-36.0); MEAN CELL VOLUME 96.1 fl (80-96); MEAN PLT VOLUME 9.6 fl (7.5-11.1); NEUTROPHILS 68.9 % (42.8-82.8); PLATELET COUNT 109 K/MM3 (134-434); RDW 22.3 % (11.6-15.6); WHITE BLOOD COUNT 5.5 K/mm3 (4.0-10.0)
--- NOTE | 2016-11-12 09:08 | PN ---
Progress Note, Physician - Current Medication List Current Medications: Active Medications Acetaminophen (Ofirmev Injection -) 700 mg IVPB Q6H-IV PRN PRN Reason: FEVER Last Admin: 11/11/16 13:15 Dose: 700 mg Acetaminophen (Tylenol Oral Solution -) 650 mg NGT Q6H PRN PRN Reason: FEVER OR PAIN Last Admin: 11/11/16 22:42 Dose: 650 mg Amino Acids (Prosource No Carb Liquid Pkt) 30 ml PO BID@0800,1730 [facility] Last Admin: 11/11/16 18:19 Dose: 30 ml Bacitracin (Bacitracin -) 1 applic TP DAILY [facility] Last Admin: 11/11/16 09:30 Dose: 1 applic Calcitriol (Rocaltrol Liquid -) 0.25 mcg NGT DAILY [facility] Last Admin: 11/11/16 12:40 Dose: 0.25 mcg Levetiracetam (Keppra Oral Solution -) 500 mg NGT BID [facility] Last Admin: 11/11/16 22:41 Dose: 500 mg Pantoprazole Sodium (Protonix Packets For Oral Suspension -) 40 mg NGT BID [facility] Last Admin: 11/11/16 22:42 Dose: 40 mg Potassium Phos/Sodium Phos (Phos-Nak Packet -) 1 packet PO BID [facility] Last Admin: 11/11/16 22:42 Dose: 1 packet - Objective Vital Signs: Vital Signs Temperature 97.6 F 11/12/16 06:00 Pulse Rate 90 11/12/16 06:00 Respiratory Rate 19 11/12/16 06:52 Blood Pressure 117/48 11/12/16 06:00 O2 Sat by Pulse Oximetry (%) 95 11/11/16 22:00 Cardiovascular: Yes: WNL, Other (has iv access & access for hd) Respiratory: Yes: WNL Gastrointestinal: Yes: WNL Labs: CBC, BMP 11/12/16 05:55 INR, PTT INR 1.21 (0.82-1.09) H 11/08/16 05:15 Fibrinogen 254.0 mg/dL (238-498) 11/03/16 05:15 Problem List - Problems (1) Cardiopulmonary arrest Code(s): I46.9 - CARDIAC ARREST, CAUSE UNSPECIFIED (2) DVT (deep venous thrombosis) Code(s): I82.409 - ACUTE EMBOLISM AND THOMBOS UNSP DEEP VN UNSP LOWER EXTREMITY (3) ESRD (end stage renal disease) on dialysis Code(s): N18.6 - END STAGE RENAL DISEASE Z99.2 - DEPENDENCE ON RENAL DIALYSIS (4) Pneumonia Code(s): J18.9 - PNEUMONIA, UNSPECIFIED ORGANISM (5) Respiratory failure Code(s): J96.90 - RESPIRATORY FAILURE, UNSP, UNSP W HYPOXIA OR HYPERCAPNIA (6) Anemia Code(s): D64.9 - ANEMIA, UNSPECIFIED Qualifiers: Other causes of anemia: chronic disease, kidney Assessment/Plan (1) DVT (deep venous thrombosis) Assessment/Plan: s/p IVC filter no anticoagulants 2/2 bleeding Code(s): I82.409 - ACUTE EMBOLISM AND THOMBOS UNSP DEEP VN UNSP LOWER EXTREMITY (2) ESRD (end stage renal disease) on dialysis Assessment/Plan: HD per renal -> need access surg on case -> has tanner & duc. planned permacath monitor mag and phos Code(s): N18.6 - END STAGE RENAL DISEASE Z99.2 - DEPENDENCE ON RENAL DIALYSIS (3) Respiratory failure Assessment/Plan: failure to wean s/p trach PMW to start PO trials Code(s): J96.90 - RESPIRATORY FAILURE, UNSP, UNSP W HYPOXIA OR HYPERCAPNIA (4) Anemia Assessment/Plan: epogen during HD hgb 7.9 s/p prbc monitor Code(s): D64.9 - ANEMIA, UNSPECIFIED Qualifiers: Other causes of anemia: chronic disease, kidney (5) Anoxic brain damage Assessment/Plan: francesco patel for sz ppx nutrition on board has NG tube Code(s): G93.1 - ANOXIC BRAIN DAMAGE, NOT ELSEWHERE CLASSIFIED PASTOR ROSS
[2016-11-12 09:11] LABS: ALBUMIN 1.5 g/dl (3.4-5.0); BILIRUBIN,TOTAL 0.9 mg/dL (0.2-1.0); CALCIUM 7.6 mg/dL (8.5-10.1); CREATININE 2.3 mg/dL (0.55-1.02); MAGNESIUM 1.7 mg/dL (1.8-2.4); PHOSPHOROUS 2.4 mg/dL (2.5-4.9); TOT PROT 6.2 g/dl (6.4-8.2)
[2016-11-12] MEDS ORDERED: PT OWN MED DRAWER 7, Y5N ONE (10:06)
[2016-11-12] MEDS: AMINO ACIDS/PROTEIN HYDROLYS 30 ML LIQUID.PKT PO SCH ×2 (10:07→17:10)
[2016-11-12] MEDS: levETIRAcetam 500 MG/5 ML ORAL SOLUTION (UNIT-DOSE CUPS) NGT SCH ×2 (10:07→22:15)
[2016-11-12] MEDS: PANTOPRAZOLE SOD 40 MG SUSPENSION PACKET NGT SCH ×2 (10:07→22:15)
[2016-11-12] MEDS: CALCITRIOL 1 MCG/ML BOT NGT SCH (10:08)
[2016-11-12] MEDS: NAPH,MB-DB/K PH,MBDB POWDER PACKET PO SCH (10:09)
[2016-11-12] MEDS: BACITRACIN 30 GM TUBE TOPICAL OINTMENT TP SCH (11:03)
--- NOTE | 2016-11-12 11:35 | SPA.PREOP ---
- PRE-OP NOTE Dx: ESRD Planned Procedure: permacath placement Surgeon: Dr. Crain Consent: to be obtained Last Vital Signs Temp Pulse Resp BP Pulse Ox 98.8 F 99 H 16 139/78 95 11/12/16 09:00 11/12/16 09:00 11/12/16 09:00 11/12/16 09:00 11/11/16 22:00 Lab Results WBC 5.5 K/mm3 (4.0-10.0) 11/12/16 05:55 RBC 2.45 M/mm3 (3.60-5.2) L 11/12/16 05:55 Hgb 7.9 GM/dL (10.7-15.3) L 11/12/16 05:55 Hct 23.6 % (32.4-45.2) L 11/12/16 05:55 MCV 96.1 fl (80-96) H 11/12/16 05:55 MCHC 33.3 g/dl (32.0-36.0) 11/12/16 05:55 RDW 22.3 % (11.6-15.6) H 11/12/16 05:55 Plt Count 109 K/MM3 (134-434) L 11/12/16 05:55 Sodium 140 mmol/L (136-145) 11/12/16 05:55 Potassium 3.6 mmol/L (3.5-5.1) 11/12/16 05:55 Chloride 101 mmol/L (98-107) 11/12/16 05:55 Carbon Dioxide 26 mmol/L (21-32) 11/12/16 05:55 Anion Gap 13 (8-16) 11/12/16 05:55 BUN 43 mg/dL (7-18) H D 11/12/16 05:55 Creatinine 2.3 mg/dL (0.55-1.02) H D 11/12/16 05:55 Random Glucose 90 mg/dL (74-106) 11/12/16 05:55 Calcium 7.6 mg/dL (8.5-10.1) L 11/12/16 05:55 Blood Type B POSITIVE 11/10/16 16:00 Antibody Screen Positive H 11/10/16 16:00 INR 1.21 (0.82-1.09) H 11/08/16 05:15 PE: intubated: b/l groin c/d/i without evidence of hematoma. Right groin TLC in place, Left groin shiley in place. +2 DP pulses b/l - ASSESSMENT/PLAN 1. Make NPO after midnight except po meds 2. Will continue both groin line until tomorrow after OR procedure once peripherally IV access can be established. 3. D/w Dr. Crain Visit type - Case Type Case Type: ED Admission - Emergency Emergency Visit: Yes ED Registration Date: 10/22/16 Care time: The patient presented to the Emergency Department on the above date and was hospitalized for further evaluation of their emergent condition. - New patient This patient is new to me today: No - Critical Care Critical Care patient: No Total Critical Care Time: 20
--- NOTE | 2016-11-12 12:05 | PN ---
Progress Note, Physician History of Present Illness: Renal f/u Pt had HD via a left femoral catheter and the right triple lumen catheter remains in place Pt having some discomfort over the aneurysmal AVF by the shoulder region + diarrhea with C diff negative Was given K and PRBCs yesterday Afebrile today - Current Medication List Current Medications: Active Medications Acetaminophen (Ofirmev Injection -) 700 mg IVPB Q6H-IV PRN PRN Reason: FEVER Last Admin: 11/11/16 13:15 Dose: 700 mg Acetaminophen (Tylenol Oral Solution -) 650 mg NGT Q6H PRN PRN Reason: FEVER OR PAIN Last Admin: 11/11/16 22:42 Dose: 650 mg Amino Acids (Prosource No Carb Liquid Pkt) 30 ml PO BID@0800,1730 [facility] Last Admin: 11/12/16 10:07 Dose: 30 ml Bacitracin (Bacitracin -) 1 applic TP DAILY [facility] Last Admin: 11/12/16 11:03 Dose: 1 applic Calcitriol (Rocaltrol Liquid -) 0.25 mcg NGT DAILY [facility] Last Admin: 11/12/16 10:08 Dose: 0.25 mcg Levetiracetam (Keppra Oral Solution -) 500 mg NGT BID [facility] Last Admin: 11/12/16 10:07 Dose: 500 mg Pantoprazole Sodium (Protonix Packets For Oral Suspension -) 40 mg NGT BID [facility] Last Admin: 11/12/16 10:07 Dose: 40 mg Potassium Phos/Sodium Phos (Phos-Nak Packet -) 1 packet PO BID [facility] Last Admin: 11/12/16 10:09 Dose: 1 packet - Objective Vital Signs: Vital Signs Temperature 98.8 F 11/12/16 09:00 Pulse Rate 99 H 11/12/16 09:00 Respiratory Rate 15 11/12/16 10:00 Blood Pressure 139/78 11/12/16 09:00 O2 Sat by Pulse Oximetry (%) 95 11/11/16 22:00 Constitutional: Yes: No Distress Cardiovascular: Yes: S1, S2 Respiratory: Yes: Intubated, Mechanically Ventilated, Other (Equal Air Entry B/L ) Gastrointestinal: Yes: Soft. No: Tenderness, Rebound Edema: Yes Labs: CBC, BMP 11/12/16 05:55 11/12/16 05:55 INR, PTT INR 1.21 (0.82-1.09) H 11/08/16 05:15 Fibrinogen 254.0 mg/dL (238-498) 11/03/16 05:15 Laboratory Tests 11/12/16 05:55 Phosphorus 2.4 L Magnesium 1.7 L Assessment/Plan Impression 1. ESRD with difficult AV access 2. S/P Hypokalemia as a result of the diarrhea with reduced Mag and PO4 3. Acute respiratory failure with tracheostomy and on ventilator 4. Pneumonia 5. DVT of right leg 6. S/P Seizure 7. Right renal complex cyst > 5cms in diameter 8. Anemia with GIB in the past and for which PRBCs have been given 9. Thrombocytopenia 10. H/O HCV 11. S/P Cardio Respiratory Arrest Plan Vascular surgery to re evaluate the LUE AVF Monitor Hgb Replace Magnesium IV since enteralmagnesium van contribute to the diarrhea Reduce the Neutraphos to daily (since PO4 up 2.4) since it can cause diarrhea Left left femoral HD in place till pt evaluated by the vascular surgeon Dr Mackay
[2016-11-12] MEDS ORDERED: MAGNESIUM SULF 50% (8.12 MEQ/2 ML-1 GM VIAL) IVPB ONE (12:45)
--- NOTE | 2016-11-12 12:57 | PN ---
Progress Note (short form) - Note Progress Note: PULMONARY MVV:14/400/40/5 AFEBRILE/APPEARS CHRONICALLY ILL TRACH IN PLACE/NO FURTHER BLOOD SECRETIONS AROUND TRACH DIMINISHED BREATH SOUNDS WITH SCATTERED CRACKLES S1S2 IRREG BS+ LESS EDEMA LOWER EXT LABS/MEDS/NOTES/IMAGING/MICRO/ABG REVIEWED S/P Trach due to failure to wean s/p PEA Cardiopulmonary Arrest s/p Hypothermia Protocol Pneumonia Septic Shock Pulmonary HTN Lactic Acidosis resolved ESRD on HD RLE distal DVT GI Bleed Thrombocytopenia - HD per renal with ultrafiltration - monitoring off antibiotics/Diflucan - Normal transfusion thresholds - empiric antiepileptics per neuro - spontaneous breathing trials as tolerated - DVT/GI prophylaxis Rm ALVA MD
--- NOTE | 2016-11-12 15:41 | PN ---
Progress Note (short form) - Note Progress Note: Oncology follow-up note S : Patient is very somnolent today, neither me nor her at bedside were able to wake her up. She responds only to painful stimuli. Per , she has been like this since he came 2 hours ago. Pt's RN aware. Last Vital Signs Temp Pulse Resp BP Pulse Ox 99.7 F H 109 H 17 142/61 96 11/12/16 13:51 11/12/16 13:51 11/12/16 14:30 11/12/16 13:51 11/12/16 09:00 Physical Exam : HEENT: JUAN, EOM Intact Neck: trach Cor: RSR, No murmurs, No gallops Lungs: diminished breath sounds bilaterally Abd: Soft, Normal bowel sounds, No organomegaly Ext:3+ edema Skin: No rashes, Integument intact CBC, BMP 11/12/16 05:55 11/12/16 05:55 Current Medications Generic Name Dose Route Start Last Admin Trade Name Freq PRN Reason Stop Dose Admin Acetaminophen 700 mg 11/08/16 14:24 11/11/16 13:15 Ofirmev Injection - IVPB 700 mg Q6H-IV PRN Administration FEVER Acetaminophen 650 mg 11/11/16 22:37 11/11/16 22:42 Tylenol Oral Solution - NGT 650 mg Q6H PRN Administration FEVER OR PAIN Amino Acids 30 ml 11/08/16 17:30 11/12/16 10:07 Prosource No Carb Liquid Pkt PO 30 ml BID@0800,1730 MARIE Administration Bacitracin 1 applic 11/09/16 10:00 11/12/16 11:03 Bacitracin - TP 1 applic DAILY MARIE Administration Calcitriol 0.25 mcg 11/09/16 13:32 11/12/16 10:08 Rocaltrol Liquid - NGT 0.25 mcg DAILY MARIE Administration Levetiracetam 500 mg 11/08/16 22:00 11/12/16 10:07 Keppra Oral Solution - NGT 500 mg BID MARIE Administration Pantoprazole Sodium 40 mg 11/08/16 22:00 11/12/16 10:07 Protonix Packets For Oral Suspension - NGT 40 mg BID MARIE Administration Potassium Phos/Sodium Phos 1 packet 11/13/16 10:00 Phos-Nak Packet - PO DAILY MARIE A/P : 80 y/o female with Hx of cardiopulmonary arrest, septic shock, resp failure s/p trach on vent, ESRD with chronic amy +ve anemia, thrombocytopenia and coagulopathy -anemia and thrombocytopenia improved, continue with supportive transfusions for plts <10, hgb <7 -will continue to follow Current Active Problems Anemia (Acute) Anoxic brain damage (Acute) Cardiopulmonary arrest (Acute) DVT (deep venous thrombosis) (Acute) Dysphagia (Acute) ESRD (end stage renal disease) on dialysis (Acute) GI bleeding (Acute) HCV (hepatitis C virus) (Acute) Metabolic encephalopathy (Acute) Pneumonia (Acute) Respiratory failure (Acute) Shock (Acute)
[2016-11-12] MEDS: ACETAMINOPHEN 650 MG/20.3 ML ORAL SOLUTION (CUPS) NGT PRN ×2 (17:10→22:18)
[2016-11-13 07:04] LABS: BASOPHIL 0.7 % (0-2.0); EOSINOPHIL 2.1 % (0-4.5); MCH 32.4 pg (25.7-33.7); MCHC 33.6 g/dl (32.0-36.0); MEAN CELL VOLUME 96.4 fl (80-96); MEAN PLT VOLUME 9.2 fl (7.5-11.1); NEUTROPHILS 71.9 % (42.8-82.8); PLATELET COUNT 114 K/MM3 (134-434); WHITE BLOOD COUNT 7.5 K/mm3 (4.0-10.0)
[2016-11-13 07:39] LABS: ALBUMIN 1.4 g/dl (3.4-5.0); CALCIUM 7.9 mg/dL (8.5-10.1); CREATININE 2.8 mg/dL (0.55-1.02); PHOSPHOROUS 2.5 mg/dL (2.5-4.9); TOT PROT 5.9 g/dl (6.4-8.2)
--- NOTE | 2016-11-13 08:44 | PN ---
Progress Note, Physician Chief Complaint: AWAKE - Current Medication List Current Medications: Active Medications Acetaminophen (Ofirmev Injection -) 700 mg IVPB Q6H-IV PRN PRN Reason: FEVER Last Admin: 11/11/16 13:15 Dose: 700 mg Acetaminophen (Tylenol Oral Solution -) 650 mg NGT Q6H PRN PRN Reason: FEVER OR PAIN Last Admin: 11/12/16 22:18 Dose: 650 mg Amino Acids (Prosource No Carb Liquid Pkt) 30 ml PO BID@0800,1730 [facility] Last Admin: 11/12/16 17:10 Dose: 30 ml Bacitracin (Bacitracin -) 1 applic TP DAILY [facility] Last Admin: 11/12/16 11:03 Dose: 1 applic Calcitriol (Rocaltrol Liquid -) 0.25 mcg NGT DAILY [facility] Last Admin: 11/12/16 10:08 Dose: 0.25 mcg Levetiracetam (Keppra Oral Solution -) 500 mg NGT BID [facility] Last Admin: 11/12/16 22:15 Dose: 500 mg Pantoprazole Sodium (Protonix Packets For Oral Suspension -) 40 mg NGT BID [facility] Last Admin: 11/12/16 22:15 Dose: 40 mg Potassium Phos/Sodium Phos (Phos-Nak Packet -) 1 packet PO DAILY [facility] - Objective Vital Signs: Vital Signs Temperature 99.4 F 11/13/16 06:00 Pulse Rate 103 H 11/13/16 06:00 Respiratory Rate 15 11/13/16 07:00 Blood Pressure 153/71 11/13/16 06:00 O2 Sat by Pulse Oximetry (%) 100 11/12/16 22:00 Constitutional: Yes: Calm HENT: Yes: Other (NO BLEED FROM TRACH) Cardiovascular: Yes: WNL Respiratory: Yes: WNL Gastrointestinal: Yes: WNL Edema: Yes Labs: CBC, BMP 11/13/16 06:35 11/13/16 06:35 INR, PTT INR 1.21 (0.82-1.09) H 11/08/16 05:15 Fibrinogen 254.0 mg/dL (238-498) 11/03/16 05:15 Problem List - Problems (1) Cardiopulmonary arrest Code(s): I46.9 - CARDIAC ARREST, CAUSE UNSPECIFIED (2) DVT (deep venous thrombosis) Code(s): I82.409 - ACUTE EMBOLISM AND THOMBOS UNSP DEEP VN UNSP LOWER EXTREMITY (3) ESRD (end stage renal disease) on dialysis Code(s): N18.6 - END STAGE RENAL DISEASE Z99.2 - DEPENDENCE ON RENAL DIALYSIS (4) Pneumonia Code(s): J18.9 - PNEUMONIA, UNSPECIFIED ORGANISM (5) Respiratory failure Code(s): J96.90 - RESPIRATORY FAILURE, UNSP, UNSP W HYPOXIA OR HYPERCAPNIA (6) Anemia Code(s): D64.9 - ANEMIA, UNSPECIFIED Qualifiers: Other causes of anemia: chronic disease, kidney Assessment/Plan (1) DVT (deep venous thrombosis) Assessment/Plan: s/p IVC filter no anticoagulants 2/2 bleeding Code(s): I82.409 - ACUTE EMBOLISM AND THOMBOS UNSP DEEP VN UNSP LOWER EXTREMITY (2) ESRD (end stage renal disease) on dialysis Assessment/Plan: HD per renal -> need access surg on case -> has ana cristina. planned permacath monitor lytes Code(s): N18.6 - END STAGE RENAL DISEASE Z99.2 - DEPENDENCE ON RENAL DIALYSIS (3) Respiratory failure Assessment/Plan: failure to wean s/p trach appreciated pulm consult Code(s): J96.90 - RESPIRATORY FAILURE, UNSP, UNSP W HYPOXIA OR HYPERCAPNIA (4) Anemia Assessment/Plan: epogen during HD appreciate heme consult transfuse for hgb >7 & plt >10 s/p prbc monitor Code(s): D64.9 - ANEMIA, UNSPECIFIED Qualifiers: Other causes of anemia: chronic disease, kidney (5) Anoxic brain damage Assessment/Plan: francesco patel for sz ppx nutrition on board has NG tube Code(s): G93.1 - ANOXIC BRAIN DAMAGE, NOT ELSEWHERE CLASSIFIED [employer]STOR ROSS
--- NOTE | 2016-11-13 09:07 | PN ---
Progress Note (short form) - Note Progress Note: Patient seen and examined Awake States she does not feel well, but denies chest pain, abdominal pains Had temp spike yesterday. Access a problem with swelling of both upper extremities and unavailability of effective shunt LUE Has line in right inguinal area and catheter in left inguinal area Has rectal tube with c. difficile negative Last Vital Signs Temp Pulse Resp BP Pulse Ox 98.8 F 76 16 150/60 100 11/13/16 08:00 11/13/16 08:00 11/13/16 08:00 11/13/16 08:00 11/12/16 22:00 HEENT: JUAN, EOM Intact Neck: trach Cor: RSR, No murmurs, No gallops Lungs:rhonchi diffusely anteriorly and posteriorly Abd: Soft, Normal bowel sounds, No organomegaly Ext:No significant edema LE, UE edema Skin: No rashes, Integument intact Sacral decubitus CBC, BMP 11/13/16 06:35 11/13/16 06:35 Current Medications Generic Name Dose Route Start Last Admin Trade Name Freq PRN Reason Stop Dose Admin Acetaminophen 700 mg 11/08/16 14:24 11/11/16 13:15 Ofirmev Injection - IVPB 700 mg Q6H-IV PRN Administration FEVER Acetaminophen 650 mg 11/11/16 22:37 11/12/16 22:18 Tylenol Oral Solution - NGT 650 mg Q6H PRN Administration FEVER OR PAIN Amino Acids 30 ml 11/08/16 17:30 11/12/16 17:10 Prosource No Carb Liquid Pkt PO 30 ml BID@0800,1730 MARIE Administration Bacitracin 1 applic 11/09/16 10:00 11/12/16 11:03 Bacitracin - TP 1 applic DAILY MARIE Administration Calcitriol 0.25 mcg 11/09/16 13:32 11/12/16 10:08 Rocaltrol Liquid - NGT 0.25 mcg DAILY MARIE Administration Levetiracetam 500 mg 11/08/16 22:00 11/12/16 22:15 Keppra Oral Solution - NGT 500 mg BID MARIE Administration Pantoprazole Sodium 40 mg 11/08/16 22:00 11/12/16 22:15 Protonix Packets For Oral Suspension - NGT 40 mg BID MARIE Administration Potassium Phos/Sodium Phos 1 packet 11/13/16 10:00 Phos-Nak Packet - PO DAILY MARIE Impression: S/P cardiorespiratory arrest Sepsis Respiratory Failure S/P trach Anemia- chronic disease GIB DVT ESRD/HD Access problem Maxime positivity + HIT antibody Fevers Plan: Holding A/C in view of GI bleeding + HIT ab- ?? false positive -- check LAURY Thrombocytopenia - to monitor Coagulopathy- check labs Maxime positivity - no evidence hemolysis Problem List - Problems (1) Cardiopulmonary arrest Code(s): I46.9 - CARDIAC ARREST, CAUSE UNSPECIFIED (2) DVT (deep venous thrombosis) Code(s): I82.409 - ACUTE EMBOLISM AND THOMBOS UNSP DEEP VN UNSP LOWER EXTREMITY (3) ESRD (end stage renal disease) on dialysis Code(s): N18.6 - END STAGE RENAL DISEASE Z99.2 - DEPENDENCE ON RENAL DIALYSIS (4) HCV (hepatitis C virus) Code(s): B19.20 - UNSPECIFIED VIRAL HEPATITIS C WITHOUT HEPATIC COMA (5) Respiratory failure Code(s): J96.90 - RESPIRATORY FAILURE, UNSP, UNSP W HYPOXIA OR HYPERCAPNIA (6) Pneumonia Code(s): J18.9 - PNEUMONIA, UNSPECIFIED ORGANISM
[2016-11-13] MEDS ORDERED: PT OWN MED DRAWER 7, Y5N ONE (10:22)
[2016-11-13] MEDS: NAPH,MB-DB/K PH,MBDB POWDER PACKET PO SCH (10:29)
[2016-11-13] MEDS: levETIRAcetam 500 MG/5 ML ORAL SOLUTION (UNIT-DOSE CUPS) NGT SCH ×2 (10:29→21:08)
[2016-11-13] MEDS: PANTOPRAZOLE SOD 40 MG SUSPENSION PACKET NGT SCH ×2 (10:29→21:08)
[2016-11-13] MEDS: CALCITRIOL 1 MCG/ML BOT NGT SCH (10:29)
--- NOTE | 2016-11-13 10:59 | PN ---
Progress Note (short form) - Note Progress Note: Vascular Surgery Was planning for PC today. Had 102 temp last night. Pt has shiley cath in groin. Will hold off Permacath today until cleared. Allan Crain DO
--- NOTE | 2016-11-13 12:40 | PN ---
Progress Note, Physician History of Present Illness: pulmonary alert,no distress on vent support,ac mode . afebrile - Current Medication List Current Medications: Active Medications Acetaminophen (Ofirmev Injection -) 700 mg IVPB Q6H-IV PRN PRN Reason: FEVER Last Admin: 11/11/16 13:15 Dose: 700 mg Acetaminophen (Tylenol Oral Solution -) 650 mg NGT Q6H PRN PRN Reason: FEVER OR PAIN Last Admin: 11/12/16 22:18 Dose: 650 mg Amino Acids (Prosource No Carb Liquid Pkt) 30 ml PO BID@0800,1730 [facility] Last Admin: 11/12/16 17:10 Dose: 30 ml Bacitracin (Bacitracin -) 1 applic TP DAILY [facility] Last Admin: 11/12/16 11:03 Dose: 1 applic Calcitriol (Rocaltrol Liquid -) 0.25 mcg NGT DAILY [facility] Last Admin: 11/13/16 10:29 Dose: 0.25 mcg Levetiracetam (Keppra Oral Solution -) 500 mg NGT BID [facility] Last Admin: 11/13/16 10:29 Dose: 500 mg Pantoprazole Sodium (Protonix Packets For Oral Suspension -) 40 mg NGT BID [facility] Last Admin: 11/13/16 10:29 Dose: 40 mg Potassium Phos/Sodium Phos (Phos-Nak Packet -) 1 packet PO DAILY [facility] Last Admin: 11/13/16 10:29 Dose: 1 packet - Objective Vital Signs: Vital Signs Temperature 98.8 F 11/13/16 08:00 Pulse Rate 76 11/13/16 08:00 Respiratory Rate 15 11/13/16 10:30 Blood Pressure 150/60 11/13/16 08:00 O2 Sat by Pulse Oximetry (%) 100 11/12/16 22:00 Constitutional: Yes: Well Nourished, Calm Eyes: Yes: WNL HENT: Yes: WNL Neck: Yes: Supple (trach) Cardiovascular: Yes: Regular Rate and Rhythm, S1 Respiratory: Yes: Rhonchi (scattered anand rhonchi) Gastrointestinal: Yes: Normal Bowel Sounds, Soft Extremities: Yes: WNL Edema: Yes Labs: CBC, BMP 11/13/16 06:35 11/13/16 06:35 INR, PTT INR 1.21 (0.82-1.09) H 11/08/16 05:15 Fibrinogen 254.0 mg/dL (238-498) 11/03/16 05:15 Problem List - Problems (1) Anemia Code(s): D64.9 - ANEMIA, UNSPECIFIED Qualifiers: Other causes of anemia: chronic disease, kidney (2) Cardiopulmonary arrest Code(s): I46.9 - CARDIAC ARREST, CAUSE UNSPECIFIED (3) DVT (deep venous thrombosis) Code(s): I82.409 - ACUTE EMBOLISM AND THOMBOS UNSP DEEP VN UNSP LOWER EXTREMITY (4) Dysphagia Code(s): R13.10 - DYSPHAGIA, UNSPECIFIED (5) ESRD (end stage renal disease) on dialysis Code(s): N18.6 - END STAGE RENAL DISEASE Z99.2 - DEPENDENCE ON RENAL DIALYSIS (6) Pneumonia Code(s): J18.9 - PNEUMONIA, UNSPECIFIED ORGANISM (7) Respiratory failure Code(s): J96.90 - RESPIRATORY FAILURE, UNSP, UNSP W HYPOXIA OR HYPERCAPNIA (8) Shock Code(s): R57.9 - SHOCK, UNSPECIFIED Assessment/Plan ASSESSMENT AND PLAN: S/P Trach due to failure to wean s/p PEA Cardiopulmonary Arrest s/p Hypothermia Protocol Pneumonia S/P Septic Shock Pulmonary HTN Lactic Acidosis resolved ESRD on HD RLE distal DVT GI Bleed Thrombocytopenia - HD per renal - empiric antiepileptics - spontaneous breathing trials as tolerated - DVT/GI prophylaxis - cultures - monitor lytes,h+h - transfuse prn - antibiotics as per claire ANGELA
--- NOTE | 2016-11-13 13:15 | PN ---
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 PMV not used since, per nursing, as she has been running a fever. Pt with NGT feedings. I suspect PO tolerance will not improve in short term. Consider :PEG?
--- NOTE | 2016-11-13 13:31 | PN ---
Progress Note (short form) - Note Progress Note: Pt with fever overnight, case cancelled for today. S/w Dr. Downs and wanted left shiley pulled. The line was pulled without difficulty. After obtaining a Right EJ line, 22 gauge her right TLC was removed. Pressure was held to both groins and a dry dressing was applied. will resume her feeds and Renal to look at her BMP tomorrow and monitor the need for HD on 11/14.
[2016-11-13] MEDS: AMINO ACIDS/PROTEIN HYDROLYS 30 ML LIQUID.PKT PO SCH ×2 (14:05→19:00)
[2016-11-13] MEDS: BACITRACIN 30 GM TUBE TOPICAL OINTMENT TP SCH (14:05)
--- NOTE | 2016-11-13 14:17 | PN ---
Progress Note, Physician History of Present Illness: Pt seen and examined at bedside. She was last dialyzed on Sunday. She responds to verbal stimuli. She had fever yesterday. - Current Medication List Current Medications: Active Medications Acetaminophen (Ofirmev Injection -) 700 mg IVPB Q6H-IV PRN PRN Reason: FEVER Last Admin: 11/11/16 13:15 Dose: 700 mg Acetaminophen (Tylenol Oral Solution -) 650 mg NGT Q6H PRN PRN Reason: FEVER OR PAIN Last Admin: 11/12/16 22:18 Dose: 650 mg Amino Acids (Prosource No Carb Liquid Pkt) 30 ml PO BID@0800,1730 [facility] Last Admin: 11/13/16 14:05 Dose: 30 ml Bacitracin (Bacitracin -) 1 applic TP DAILY [facility] Last Admin: 11/13/16 14:05 Dose: 1 applic Calcitriol (Rocaltrol Liquid -) 0.25 mcg NGT DAILY [facility] Last Admin: 11/13/16 10:29 Dose: 0.25 mcg Levetiracetam (Keppra Oral Solution -) 500 mg NGT BID [facility] Last Admin: 11/13/16 10:29 Dose: 500 mg Pantoprazole Sodium (Protonix Packets For Oral Suspension -) 40 mg NGT BID [facility] Last Admin: 11/13/16 10:29 Dose: 40 mg Potassium Phos/Sodium Phos (Phos-Nak Packet -) 1 packet PO DAILY [facility] Last Admin: 11/13/16 10:29 Dose: 1 packet - Objective Vital Signs: Vital Signs Temperature 99.9 F H 11/13/16 14:10 Pulse Rate 90 11/13/16 14:10 Respiratory Rate 15 11/13/16 14:10 Blood Pressure 137/55 11/13/16 14:10 O2 Sat by Pulse Oximetry (%) 100 11/12/16 22:00 Constitutional: Yes: Calm Eyes: Yes: Conjunctiva Clear HENT: Yes: Atraumatic Neck: Yes: Other (trache) Cardiovascular: Yes: S1, S2 Respiratory: Yes: Mechanically Ventilated Gastrointestinal: Yes: Soft Musculoskeletal: Yes: Muscle Weakness Edema: Yes Edema: LLE: 1+, RLE: 1+ Wound/Incision: Yes: Dressing Dry and Intact Neurological: Yes: Other (responds to verbal stimuli) Labs: CBC, BMP 11/13/16 06:35 11/13/16 06:35 INR, PTT INR 1.21 (0.82-1.09) H 11/08/16 05:15 Fibrinogen 254.0 mg/dL (238-498) 11/03/16 05:15 Problem List - Problems (1) Cardiopulmonary arrest Code(s): I46.9 - CARDIAC ARREST, CAUSE UNSPECIFIED (2) DVT (deep venous thrombosis) Code(s): I82.409 - ACUTE EMBOLISM AND THOMBOS UNSP DEEP VN UNSP LOWER EXTREMITY (3) ESRD (end stage renal disease) on dialysis Code(s): N18.6 - END STAGE RENAL DISEASE Z99.2 - DEPENDENCE ON RENAL DIALYSIS (4) HCV (hepatitis C virus) Code(s): B19.20 - UNSPECIFIED VIRAL HEPATITIS C WITHOUT HEPATIC COMA (5) Respiratory failure Code(s): J96.90 - RESPIRATORY FAILURE, UNSP, UNSP W HYPOXIA OR HYPERCAPNIA Assessment/Plan Current Medications Generic Name Dose Route Start Last Admin Trade Name Freq PRN Reason Stop Dose Admin Acetaminophen 700 mg 11/08/16 14:24 11/11/16 13:15 Ofirmev Injection - IVPB 700 mg Q6H-IV PRN Administration FEVER Acetaminophen 650 mg 11/11/16 22:37 11/12/16 22:18 Tylenol Oral Solution - NGT 650 mg Q6H PRN Administration FEVER OR PAIN Amino Acids 30 ml 11/08/16 17:30 11/13/16 14:05 Prosource No Carb Liquid Pkt PO 30 ml BID@0800,1730 MARIE Administration Bacitracin 1 applic 11/09/16 10:00 11/13/16 14:05 Bacitracin - TP 1 applic DAILY MARIE Administration Calcitriol 0.25 mcg 11/09/16 13:32 11/13/16 10:29 Rocaltrol Liquid - NGT 0.25 mcg DAILY MARIE Administration Levetiracetam 500 mg 11/08/16 22:00 11/13/16 10:29 Keppra Oral Solution - NGT 500 mg BID AMRIE Administration Pantoprazole Sodium 40 mg 11/08/16 22:00 11/13/16 10:29 Protonix Packets For Oral Suspension - NGT 40 mg BID MARIE Administration Potassium Phos/Sodium Phos 1 packet 11/13/16 10:00 11/13/16 10:29 Phos-Nak Packet - PO 1 packet DAILY MARIE Administration Impression 1. ESRD 2. s/p cardiopulmonary arrest 3. acute respiratory failure 4. Pneumonia 5. DVT of right leg 6. S/P Seizure following the arrest 7. Right renal complex cyst > 5cms in diameter 8. Anemia 9. Thrombocytopenia 10. H/O HCV 11. active GI bleed Plan - place peripheral IV and remove central line - remove shiley catheter - send stat cultures - will evaluate for HD in am, pt will likely need another shiley before a permacath is placed - trache care - cont vent support - monitor CBC - monitor phos and mag - wound care to fistula - discussed with vascular Dr Espino
[2016-11-13] MEDS: ACETAMINOPHEN 650 MG/20.3 ML ORAL SOLUTION (CUPS) NGT PRN (21:07)
[2016-11-14 07:05] LABS: BASOPHIL 0.6 % (0-2.0); EOSINOPHIL 1.5 % (0-4.5); MCH 32.8 pg (25.7-33.7); MCHC 33.8 g/dl (32.0-36.0); MEAN CELL VOLUME 96.9 fl (80-96); MEAN PLT VOLUME 9.4 fl (7.5-11.1); NEUTROPHILS 71.8 % (42.8-82.8); PLATELET COUNT 131 K/MM3 (134-434); RDW 22.4 % (11.6-15.6); WHITE BLOOD COUNT 7.2 K/mm3 (4.0-10.0)
[2016-11-14 07:44] LABS: ALBUMIN 1.4 g/dl (3.4-5.0); CALCIUM 7.8 mg/dL (8.5-10.1)
[2016-11-14 07:46] LABS: BILIRUBIN,TOTAL 0.9 mg/dL (0.2-1.0); CREATININE 3.5 mg/dL (0.55-1.02)
[2016-11-14 07:49] LABS: INR 1.33 (0.82-1.09); PROTHROMBIN TIME (PATIENT) 14.7 SEC (9.98-11.88)
[2016-11-14 07:51] LABS: ACTIVATED PTT 36.3 SECONDS (26.9-34.4)
[2016-11-14] MEDS: NAPH,MB-DB/K PH,MBDB POWDER PACKET PO SCH (10:27)
[2016-11-14] MEDS: levETIRAcetam 500 MG/5 ML ORAL SOLUTION (UNIT-DOSE CUPS) NGT SCH ×2 (10:27→21:59)
[2016-11-14] MEDS: AMINO ACIDS/PROTEIN HYDROLYS 30 ML LIQUID.PKT PO SCH ×2 (10:28→17:54)
[2016-11-14] MEDS: ACETAMINOPHEN 650 MG/20.3 ML ORAL SOLUTION (CUPS) NGT PRN ×2 (10:29→17:54)
[2016-11-14] MEDS: CALCITRIOL 1 MCG/ML BOT NGT SCH (10:29)
[2016-11-14] MEDS: PANTOPRAZOLE SOD 40 MG SUSPENSION PACKET NGT SCH ×2 (10:29→21:59)
--- NOTE | 2016-11-14 12:30 | PN ---
Progress Note (short form) - Note Progress Note: PULMONARY Febrile overnight. Vented on volume assist control. Lethargic but arousable. Last Vital Signs Temp Pulse Resp BP Pulse Ox 98.4 F 96 H 19 154/61 97 11/14/16 09:53 11/14/16 09:53 11/14/16 10:01 11/14/16 09:53 11/13/16 21:00 Gen: vented, lethargic Heart: RRR Lung: decreased breath sounds at the bases Abd: soft, nontender Ext: + UE edema CBC, BMP 11/14/16 06:15 11/14/16 06:15 Active Medications Acetaminophen (Ofirmev Injection -) 700 mg IVPB Q6H-IV PRN PRN Reason: FEVER Last Admin: 11/11/16 13:15 Dose: 700 mg Acetaminophen (Tylenol Oral Solution -) 650 mg NGT Q6H PRN PRN Reason: FEVER OR PAIN Last Admin: 11/14/16 10:29 Dose: 650 mg Amino Acids (Prosource No Carb Liquid Pkt) 30 ml PO BID@0800,1730 [facility] Last Admin: 11/14/16 10:28 Dose: 30 ml Bacitracin (Bacitracin -) 1 applic TP DAILY [facility] Last Admin: 11/13/16 14:05 Dose: 1 applic Calcitriol (Rocaltrol Liquid -) 0.25 mcg NGT DAILY [facility] Last Admin: 11/14/16 10:29 Dose: 0.25 mcg Levetiracetam (Keppra Oral Solution -) 500 mg NGT BID [facility] Last Admin: 11/14/16 10:27 Dose: 500 mg Pantoprazole Sodium (Protonix Packets For Oral Suspension -) 40 mg NGT BID [facility] Last Admin: 11/14/16 10:29 Dose: 40 mg Potassium Phos/Sodium Phos (Phos-Nak Packet -) 1 packet PO DAILY [facility] Last Admin: 11/14/16 10:27 Dose: 1 packet A/P s/p PEA Cardiopulmonary Arrest s/p Hypothermia Protocol s/p Tracheostomy Pneumonia s/p Septic Shock Pulmonary HTN Lactic Acidosis resolved ESRD on HD r/o Anoxic Encephalopathy RLE distal DVT GI Bleed Thrombocytopenia - HD per renal - f/u cultures - permacath placement when infectious process ruled out - spontaneous breathing trials as tolerated - will need PEG placement - DVT/GI prophylaxis - poor overall prognosis
[2016-11-14] MEDS: BACITRACIN 30 GM TUBE TOPICAL OINTMENT TP SCH (14:02)
--- NOTE | 2016-11-14 15:25 | PN ---
Progress Note, Physician History of Present Illness: Pt seen and examined at bedside. She is awake and interactive. She remains intubated. - Current Medication List Current Medications: Active Medications Acetaminophen (Ofirmev Injection -) 700 mg IVPB Q6H-IV PRN PRN Reason: FEVER Last Admin: 11/11/16 13:15 Dose: 700 mg Acetaminophen (Tylenol Oral Solution -) 650 mg NGT Q6H PRN PRN Reason: FEVER OR PAIN Last Admin: 11/14/16 10:29 Dose: 650 mg Amino Acids (Prosource No Carb Liquid Pkt) 30 ml PO BID@0800,1730 [facility] Last Admin: 11/14/16 10:28 Dose: 30 ml Bacitracin (Bacitracin -) 1 applic TP DAILY [facility] Last Admin: 11/14/16 14:02 Dose: 1 applic Calcitriol (Rocaltrol Liquid -) 0.25 mcg NGT DAILY [facility] Last Admin: 11/14/16 10:29 Dose: 0.25 mcg Levetiracetam (Keppra Oral Solution -) 500 mg NGT BID [facility] Last Admin: 11/14/16 10:27 Dose: 500 mg Pantoprazole Sodium (Protonix Packets For Oral Suspension -) 40 mg NGT BID [facility] Last Admin: 11/14/16 10:29 Dose: 40 mg Potassium Phos/Sodium Phos (Phos-Nak Packet -) 1 packet PO DAILY [facility] Last Admin: 11/14/16 10:27 Dose: 1 packet - Objective Vital Signs: Vital Signs Temperature 98.9 F 11/14/16 14:57 Pulse Rate 103 H 11/14/16 14:57 Respiratory Rate 21 11/14/16 14:57 Blood Pressure 130/85 11/14/16 14:57 O2 Sat by Pulse Oximetry (%) 97 11/14/16 14:25 Constitutional: Yes: Calm Eyes: Yes: Conjunctiva Clear HENT: Yes: Atraumatic Neck: Yes: Other (trache) Cardiovascular: Yes: S1, S2 Respiratory: Yes: Mechanically Ventilated Gastrointestinal: Yes: Soft Genitourinary: Yes: Incontinence Musculoskeletal: Yes: Muscle Weakness Edema: Yes Edema: LLE: 1+, RLE: 1+ Neurological: Yes: Other (awake) Labs: CBC, BMP 11/14/16 06:15 11/14/16 06:15 INR, PTT INR 1.33 (0.82-1.09) H 11/14/16 06:15 Fibrinogen 279.0 mg/dL (238-498) 11/14/16 06:15 Problem List - Problems (1) Cardiopulmonary arrest Code(s): I46.9 - CARDIAC ARREST, CAUSE UNSPECIFIED (2) DVT (deep venous thrombosis) Code(s): I82.409 - ACUTE EMBOLISM AND THOMBOS UNSP DEEP VN UNSP LOWER EXTREMITY (3) ESRD (end stage renal disease) on dialysis Code(s): N18.6 - END STAGE RENAL DISEASE Z99.2 - DEPENDENCE ON RENAL DIALYSIS (4) HCV (hepatitis C virus) Code(s): B19.20 - UNSPECIFIED VIRAL HEPATITIS C WITHOUT HEPATIC COMA (5) Respiratory failure Code(s): J96.90 - RESPIRATORY FAILURE, UNSP, UNSP W HYPOXIA OR HYPERCAPNIA Assessment/Plan Current Medications Generic Name Dose Route Start Last Admin Trade Name Freq PRN Reason Stop Dose Admin Acetaminophen 700 mg 11/08/16 14:24 11/11/16 13:15 Ofirmev Injection - IVPB 700 mg Q6H-IV PRN Administration FEVER Acetaminophen 650 mg 11/11/16 22:37 11/14/16 10:29 Tylenol Oral Solution - NGT 650 mg Q6H PRN Administration FEVER OR PAIN Amino Acids 30 ml 11/08/16 17:30 11/14/16 10:28 Prosource No Carb Liquid Pkt PO 30 ml BID@0800,1730 [facility] Administration Bacitracin 1 applic 11/09/16 10:00 11/14/16 14:02 Bacitracin - TP 1 applic DAILY [facility] Administration Calcitriol 0.25 mcg 11/09/16 13:32 11/14/16 10:29 Rocaltrol Liquid - NGT 0.25 mcg DAILY [facility] Administration Levetiracetam 500 mg 11/08/16 22:00 11/14/16 10:27 Keppra Oral Solution - NGT 500 mg BID [facility]IE Administration Pantoprazole Sodium 40 mg 11/08/16 22:00 11/14/16 10:29 Protonix Packets For Oral Suspension - NGT 40 mg BID [facility]IE Administration Potassium Phos/Sodium Phos 1 packet 11/13/16 10:00 11/14/16 10:27 Phos-Nak Packet - PO 1 packet DAILY [facility] Administration 11/13/16 cultures pending Impression 1. ESRD 2. s/p cardiopulmonary arrest 3. acute respiratory failure 4. Pneumonia 5. DVT of right leg 6. S/P Seizure following the arrest 7. Right renal complex cyst > 5cms in diameter 8. Anemia 9. Thrombocytopenia 10. H/O HCV 11. active GI bleed Plan - discussed with vascular surgery, will wait for cultures and if negative will place permacath tomorrow. If not will place a shiley for temporary HD in am. - NPO past midnight - decrease about of fluids for the rest of the day - repeat labs in am - follow up cultures - trache care - cont vent support - monitor CBC - wound care to access site Dr Espino
--- NOTE | 2016-11-14 16:08 | PN ---
Progress Note, Physician Chief Complaint: TRACHEOSTOMY ANNA NOT WORKING SCHEDULED FOR PERMACATH TOMORROW - Current Medication List Current Medications: Active Medications Acetaminophen (Ofirmev Injection -) 700 mg IVPB Q6H-IV PRN PRN Reason: FEVER Last Admin: 11/11/16 13:15 Dose: 700 mg Acetaminophen (Tylenol Oral Solution -) 650 mg NGT Q6H PRN PRN Reason: FEVER OR PAIN Last Admin: 11/14/16 10:29 Dose: 650 mg Amino Acids (Prosource No Carb Liquid Pkt) 30 ml PO BID@0800,1730 [facility] Last Admin: 11/14/16 10:28 Dose: 30 ml Bacitracin (Bacitracin -) 1 applic TP DAILY [facility] Last Admin: 11/14/16 14:02 Dose: 1 applic Calcitriol (Rocaltrol Liquid -) 0.25 mcg NGT DAILY [facility] Last Admin: 11/14/16 10:29 Dose: 0.25 mcg Levetiracetam (Keppra Oral Solution -) 500 mg NGT BID [facility] Last Admin: 11/14/16 10:27 Dose: 500 mg Pantoprazole Sodium (Protonix Packets For Oral Suspension -) 40 mg NGT BID [facility] Last Admin: 11/14/16 10:29 Dose: 40 mg Potassium Phos/Sodium Phos (Phos-Nak Packet -) 1 packet PO DAILY [facility] Last Admin: 11/14/16 10:27 Dose: 1 packet - Objective Vital Signs: Vital Signs Temperature 98.9 F 11/14/16 14:57 Pulse Rate 103 H 11/14/16 14:57 Respiratory Rate 21 11/14/16 14:57 Blood Pressure 130/85 11/14/16 14:57 O2 Sat by Pulse Oximetry (%) 97 11/14/16 14:25 Constitutional: Yes: No Distress Eyes: Yes: WNL HENT: Yes: WNL Neck: Yes: WNL Cardiovascular: Yes: WNL Respiratory: Yes: Mechanically Ventilated Gastrointestinal: Yes: WNL Genitourinary: Yes: Other Musculoskeletal: Yes: Muscle Weakness Extremities: Yes: Other Edema: No Peripheral Pulses WNL: Yes Integumentary: Yes: WNL Wound/Incision: Yes: Other Neurological: Yes: Other ...Motor Strength: LLE, RLE Psychiatric: Yes: Other Labs: CBC, BMP 11/14/16 06:15 11/14/16 06:15 INR, PTT INR 1.33 (0.82-1.09) H 11/14/16 06:15 Fibrinogen 279.0 mg/dL (238-498) 11/14/16 06:15 Problem List - Problems (1) Cardiopulmonary arrest Code(s): I46.9 - CARDIAC ARREST, CAUSE UNSPECIFIED (2) DVT (deep venous thrombosis) Code(s): I82.409 - ACUTE EMBOLISM AND THOMBOS UNSP DEEP VN UNSP LOWER EXTREMITY (3) ESRD (end stage renal disease) on dialysis Code(s): N18.6 - END STAGE RENAL DISEASE Z99.2 - DEPENDENCE ON RENAL DIALYSIS (4) HCV (hepatitis C virus) Code(s): B19.20 - UNSPECIFIED VIRAL HEPATITIS C WITHOUT HEPATIC COMA (5) Metabolic encephalopathy Code(s): G93.41 - METABOLIC ENCEPHALOPATHY (6) Pneumonia Code(s): J18.9 - PNEUMONIA, UNSPECIFIED ORGANISM (7) Respiratory failure Code(s): J96.90 - RESPIRATORY FAILURE, UNSP, UNSP W HYPOXIA OR HYPERCAPNIA (8) Dysphagia Code(s): R13.10 - DYSPHAGIA, UNSPECIFIED Assessment/Plan TRACHEOSTOMY IN PLACE AND FUNCTIONING J-TUBE WITH INTERVENTIONAL RADIOLOGY, DISCUSSED WITH DR NEVILLE AV FISTULA REVIEW WITH VASC SX , DOPPLER NEGATIVE FOR DVT UPPER EXTREMITY OOB TO CHAIR AND PT WHEN JTUBE PLACED PROSTAT MVI HD PER RENAL PERMACATH TOMORROW WILL NEED TRANSFUSION PRBC GIVEN CHOICES OF LTAC
[2016-11-15] MEDS ORDERED: LIDOCAINE HCL 1%, 10 MG/ML (20ML VIAL) IJ ONE
[2016-11-15] MEDS ORDERED: PT OWN MED DRAWER 7, Y5N ONE (05:46)
[2016-11-15] MEDS: ACETAMINOPHEN 650 MG/20.3 ML ORAL SOLUTION (CUPS) NGT PRN ×2 (06:03→11:30)
[2016-11-15] MEDS: AMINO ACIDS/PROTEIN HYDROLYS 30 ML LIQUID.PKT PO SCH ×2 (08:27→19:04)
[2016-11-15 08:53] LABS: CALCIUM 8.5 mg/dL (8.5-10.1); CREATININE 3.9 mg/dL (0.55-1.02)
--- NOTE | 2016-11-15 09:42 | PN ---
Progress Note, Physician Chief Complaint: AWAKE, NGT IN PLACE TRACHEOSTOMY FUNCTIONING RECTAL TUBE +BROWN FECES +FEVERS NO HD ACCESS, AWAITING PERMACATH PLACEMENT TODAY - Current Medication List Current Medications: Active Medications Acetaminophen (Ofirmev Injection -) 700 mg IVPB Q6H-IV PRN PRN Reason: FEVER Last Admin: 11/11/16 13:15 Dose: 700 mg Acetaminophen (Tylenol Oral Solution -) 650 mg NGT Q6H PRN PRN Reason: FEVER OR PAIN Last Admin: 11/15/16 06:03 Dose: 650 mg Amino Acids (Prosource No Carb Liquid Pkt) 30 ml PO BID@0800,1730 [facility] Last Admin: 11/15/16 08:27 Dose: 30 ml Bacitracin (Bacitracin -) 1 applic TP DAILY [facility] Last Admin: 11/14/16 14:02 Dose: 1 applic Calcitriol (Rocaltrol Liquid -) 0.25 mcg NGT DAILY [facility] Last Admin: 11/14/16 10:29 Dose: 0.25 mcg Levetiracetam (Keppra Oral Solution -) 500 mg NGT BID [facility] Last Admin: 11/14/16 21:59 Dose: 500 mg Pantoprazole Sodium (Protonix Packets For Oral Suspension -) 40 mg NGT BID [facility] Last Admin: 11/14/16 21:59 Dose: 40 mg Potassium Phos/Sodium Phos (Phos-Nak Packet -) 1 packet PO DAILY [facility] Last Admin: 11/14/16 10:27 Dose: 1 packet - Objective Vital Signs: Vital Signs Temperature 100.9 F H 11/15/16 06:00 Pulse Rate 100 H 11/15/16 06:00 Respiratory Rate 16 11/15/16 06:05 Blood Pressure 155/66 11/15/16 06:00 O2 Sat by Pulse Oximetry (%) 97 11/14/16 14:25 Constitutional: Yes: Mild Distress Eyes: Yes: WNL HENT: Yes: WNL Neck: Yes: WNL Cardiovascular: Yes: WNL Respiratory: Yes: Diminished, Mechanically Ventilated Gastrointestinal: Yes: Distention ...Rectal Exam: Yes: Other (RECTAL TUBE) Genitourinary: Yes: Other Musculoskeletal: Yes: Muscle Weakness Extremities: Yes: Other Edema: No Peripheral Pulses WNL: Yes Integumentary: Yes: Other Wound/Incision: Yes: Dressing Dry and Intact Neurological: Yes: Confusion, Pre-Existing Deficit ...Motor Strength: LLE, RLE Psychiatric: Yes: Agitated Labs: CBC, BMP 11/14/16 06:15 11/15/16 07:00 INR, PTT INR 1.33 (0.82-1.09) H 11/14/16 06:15 Fibrinogen 279.0 mg/dL (238-498) 11/14/16 06:15 Problem List - Problems (1) Cardiopulmonary arrest Code(s): I46.9 - CARDIAC ARREST, CAUSE UNSPECIFIED (2) DVT (deep venous thrombosis) Code(s): I82.409 - ACUTE EMBOLISM AND THOMBOS UNSP DEEP VN UNSP LOWER EXTREMITY (3) ESRD (end stage renal disease) on dialysis Code(s): N18.6 - END STAGE RENAL DISEASE Z99.2 - DEPENDENCE ON RENAL DIALYSIS (4) HCV (hepatitis C virus) Code(s): B19.20 - UNSPECIFIED VIRAL HEPATITIS C WITHOUT HEPATIC COMA (5) Metabolic encephalopathy Code(s): G93.41 - METABOLIC ENCEPHALOPATHY (6) Pneumonia Code(s): J18.9 - PNEUMONIA, UNSPECIFIED ORGANISM (7) Respiratory failure Code(s): J96.90 - RESPIRATORY FAILURE, UNSP, UNSP W HYPOXIA OR HYPERCAPNIA (8) Dysphagia Code(s): R13.10 - DYSPHAGIA, UNSPECIFIED Assessment/Plan AWAITING ACESS FOR PERMACATHETER TODAY + FEVERS, ID FOLLOW UP K+ LOW, RENAL NOT REPLACING AT THIS TIME WILL REPLACE DURING HD TRACHEOSTOMY IN PLACE AND FUNCTIONING J-TUBE WITH INTERVENTIONAL RADIOLOGY, DISCUSSED WITH DR NEVILLE AV FISTULA REVIEW WITH VASC SX , DOPPLER NEGATIVE FOR DVT UPPER EXTREMITY OOB TO CHAIR AND PT WHEN JTUBE PLACED PROSTAT MVI WILL NEED TRANSFUSION PRBC GIVEN CHOICES OF LTAC
[2016-11-15] MEDS: BACITRACIN 30 GM TUBE TOPICAL OINTMENT TP SCH (10:46)
[2016-11-15] MEDS: levETIRAcetam 500 MG/5 ML ORAL SOLUTION (UNIT-DOSE CUPS) NGT SCH ×2 (10:46→22:38)
[2016-11-15] MEDS: PANTOPRAZOLE SOD 40 MG SUSPENSION PACKET NGT SCH ×2 (10:46→22:38)
[2016-11-15] MEDS: NAPH,MB-DB/K PH,MBDB POWDER PACKET PO SCH (10:46)
[2016-11-15] MEDS: CALCITRIOL 1 MCG/ML BOT NGT SCH (10:46)
--- NOTE | 2016-11-15 12:00 | PN ---
Progress Note, Physician History of Present Illness: pulmonary lethargic , on vent support,ac mode - Current Medication List Current Medications: Active Medications Acetaminophen (Ofirmev Injection -) 700 mg IVPB Q6H-IV PRN PRN Reason: FEVER Last Admin: 11/11/16 13:15 Dose: 700 mg Acetaminophen (Tylenol Oral Solution -) 650 mg NGT Q6H PRN PRN Reason: FEVER OR PAIN Last Admin: 11/15/16 06:03 Dose: 650 mg Amino Acids (Prosource No Carb Liquid Pkt) 30 ml PO BID@0800,1730 [facility] Last Admin: 11/15/16 08:27 Dose: 30 ml Bacitracin (Bacitracin -) 1 applic TP DAILY [facility] Last Admin: 11/15/16 10:46 Dose: 1 applic Calcitriol (Rocaltrol Liquid -) 0.25 mcg NGT DAILY [facility] Last Admin: 11/15/16 10:46 Dose: 0.25 mcg Levetiracetam (Keppra Oral Solution -) 500 mg NGT BID [facility] Last Admin: 11/15/16 10:46 Dose: 500 mg Pantoprazole Sodium (Protonix Packets For Oral Suspension -) 40 mg NGT BID [facility] Last Admin: 11/15/16 10:46 Dose: 40 mg Potassium Phos/Sodium Phos (Phos-Nak Packet -) 1 packet PO DAILY [facility] Last Admin: 11/15/16 10:46 Dose: 1 packet - Objective Vital Signs: Vital Signs Temperature 100.9 F H 11/15/16 06:00 Pulse Rate 100 H 11/15/16 10:35 Respiratory Rate 16 11/15/16 10:35 Blood Pressure 155/66 11/15/16 06:00 O2 Sat by Pulse Oximetry (%) 97 11/15/16 10:35 Constitutional: Yes: Thin, Other (lethargic) Eyes: Yes: WNL HENT: Yes: WNL Neck: Yes: Supple (trach) Cardiovascular: Yes: Regular Rate and Rhythm, S1, S2 Respiratory: Yes: Rhonchi (scattered anand rhonchi) Gastrointestinal: Yes: Normal Bowel Sounds, Soft Extremities: Yes: WNL Edema: Yes Labs: CBC, BMP 11/14/16 06:15 11/15/16 07:00 INR, PTT INR 1.33 (0.82-1.09) H 11/14/16 06:15 Fibrinogen 279.0 mg/dL (238-498) 11/14/16 06:15 Problem List - Problems (1) Anemia Code(s): D64.9 - ANEMIA, UNSPECIFIED Qualifiers: Other causes of anemia: chronic disease, kidney (2) Cardiopulmonary arrest Code(s): I46.9 - CARDIAC ARREST, CAUSE UNSPECIFIED (3) DVT (deep venous thrombosis) Code(s): I82.409 - ACUTE EMBOLISM AND THOMBOS UNSP DEEP VN UNSP LOWER EXTREMITY (4) Dysphagia Code(s): R13.10 - DYSPHAGIA, UNSPECIFIED (5) ESRD (end stage renal disease) on dialysis Code(s): N18.6 - END STAGE RENAL DISEASE Z99.2 - DEPENDENCE ON RENAL DIALYSIS (6) Pneumonia Code(s): J18.9 - PNEUMONIA, UNSPECIFIED ORGANISM (7) Respiratory failure Code(s): J96.90 - RESPIRATORY FAILURE, UNSP, UNSP W HYPOXIA OR HYPERCAPNIA (8) Shock Code(s): R57.9 - SHOCK, UNSPECIFIED Assessment/Plan ASSESSMENT AND PLAN: S/P Trach due to failure to wean s/p PEA Cardiopulmonary Arrest s/p Hypothermia Protocol Pneumonia S/P Septic Shock Pulmonary HTN Lactic Acidosis resolved ESRD on HD RLE distal DVT GI Bleed Thrombocytopenia Fever - HD per renal - empiric antiepileptics - spontaneous breathing trials as tolerated - DVT/GI prophylaxis - cultures - monitor lytes,h+h - transfuse prn DR ANGELA
[2016-11-15] MEDS ORDERED: EPOETIN ALFA 10,000 UNIT/1 ML VIAL IVPUSH ONE (12:49)
--- NOTE | 2016-11-15 12:49 | PN ---
Progress Note, Physician History of Present Illness: Pt seen and examined at bedside. She is awake and responds to verbal stimuli. She is going for fistulogram today. - Current Medication List Current Medications: Active Medications Acetaminophen (Ofirmev Injection -) 700 mg IVPB Q6H-IV PRN PRN Reason: FEVER Last Admin: 11/11/16 13:15 Dose: 700 mg Acetaminophen (Tylenol Oral Solution -) 650 mg NGT Q6H PRN PRN Reason: FEVER OR PAIN Last Admin: 11/15/16 06:03 Dose: 650 mg Amino Acids (Prosource No Carb Liquid Pkt) 30 ml PO BID@0800,1730 [facility] Last Admin: 11/15/16 08:27 Dose: 30 ml Bacitracin (Bacitracin -) 1 applic TP DAILY [facility] Last Admin: 11/15/16 10:46 Dose: 1 applic Calcitriol (Rocaltrol Liquid -) 0.25 mcg NGT DAILY [facility] Last Admin: 11/15/16 10:46 Dose: 0.25 mcg Levetiracetam (Keppra Oral Solution -) 500 mg NGT BID [facility] Last Admin: 11/15/16 10:46 Dose: 500 mg Pantoprazole Sodium (Protonix Packets For Oral Suspension -) 40 mg NGT BID [facility] Last Admin: 11/15/16 10:46 Dose: 40 mg Potassium Phos/Sodium Phos (Phos-Nak Packet -) 1 packet PO DAILY [facility] Last Admin: 11/15/16 10:46 Dose: 1 packet - Objective Vital Signs: Vital Signs Temperature 100.9 F H 11/15/16 06:00 Pulse Rate 100 H 11/15/16 10:35 Respiratory Rate 16 11/15/16 10:35 Blood Pressure 155/66 11/15/16 06:00 O2 Sat by Pulse Oximetry (%) 97 11/15/16 10:35 Constitutional: Yes: Calm Eyes: Yes: Conjunctiva Clear Neck: Yes: Other (trache) Cardiovascular: Yes: S1, S2 Respiratory: Yes: Mechanically Ventilated Gastrointestinal: Yes: Soft Genitourinary: Yes: Incontinence Edema: Yes Edema: LLE: 2+, RLE: 2+ Neurological: Yes: Other (awake) Labs: CBC, BMP 11/14/16 06:15 11/15/16 07:00 INR, PTT INR 1.33 (0.82-1.09) H 11/14/16 06:15 Fibrinogen 279.0 mg/dL (238-498) 11/14/16 06:15 Problem List - Problems (1) Cardiopulmonary arrest Code(s): I46.9 - CARDIAC ARREST, CAUSE UNSPECIFIED (2) DVT (deep venous thrombosis) Code(s): I82.409 - ACUTE EMBOLISM AND THOMBOS UNSP DEEP VN UNSP LOWER EXTREMITY (3) ESRD (end stage renal disease) on dialysis Code(s): N18.6 - END STAGE RENAL DISEASE Z99.2 - DEPENDENCE ON RENAL DIALYSIS (4) HCV (hepatitis C virus) Code(s): B19.20 - UNSPECIFIED VIRAL HEPATITIS C WITHOUT HEPATIC COMA (5) Respiratory failure Code(s): J96.90 - RESPIRATORY FAILURE, UNSP, UNSP W HYPOXIA OR HYPERCAPNIA Assessment/Plan Current Medications Generic Name Dose Route Start Last Admin Trade Name Freq PRN Reason Stop Dose Admin Acetaminophen 700 mg 11/08/16 14:24 11/11/16 13:15 Ofirmev Injection - IVPB 700 mg Q6H-IV PRN Administration FEVER Acetaminophen 650 mg 11/11/16 22:37 11/15/16 06:03 Tylenol Oral Solution - NGT 650 mg Q6H PRN Administration FEVER OR PAIN Amino Acids 30 ml 11/08/16 17:30 11/15/16 08:27 Prosource No Carb Liquid Pkt PO 30 ml BID@0800,1730 [facility] Administration Bacitracin 1 applic 11/09/16 10:00 11/15/16 10:46 Bacitracin - TP 1 applic DAILY [facility] Administration Calcitriol 0.25 mcg 11/09/16 13:32 11/15/16 10:46 Rocaltrol Liquid - NGT 0.25 mcg DAILY [facility] Administration Levetiracetam 500 mg 11/08/16 22:00 11/15/16 10:46 Keppra Oral Solution - NGT 500 mg BID [facility] Administration Pantoprazole Sodium 40 mg 11/08/16 22:00 11/15/16 10:46 Protonix Packets For Oral Suspension - NGT 40 mg BID [facility] Administration Potassium Phos/Sodium Phos 1 packet 11/13/16 10:00 11/15/16 10:46 Phos-Nak Packet - PO 1 packet DAILY [facility] Administration 11/13/16 cultures no growth after 24 hours Impression 1. ESRD 2. s/p cardiopulmonary arrest 3. acute respiratory failure 4. Pneumonia 5. DVT of right leg 6. S/P Seizure following the arrest 7. Right renal complex cyst > 5cms in diameter 8. Anemia 9. Thrombocytopenia 10. H/O HCV 11. active GI bleed Plan - pt is going for fistulogram today, will use fistula or will have a shiley placed, depending on fistulogram - NPO for procedure, resume feeds after surgery - will arrange for HD today - discussed plan with vascular surgery - repeat labs in am - follow up cultures - trache care - cont vent support Dr Espino
[2016-11-15] MEDS ORDERED: HEPARIN NA (PORCINE) 5,000 UNITS/ML 1ML VIAL ONE (13:55)
[2016-11-15] MEDS ORDERED: LIDOCAINE HCL 1%, 10 MG/ML (20ML VIAL) ONE (13:55)
--- NOTE | 2016-11-15 15:37 | OP ---
Operative Note - Note: Operative Date: 11/15/16 Pre-Operative Diagnosis: Rule out stenosis left avf. Operation: left avf venogram Findings: no stenosis Post-Operative Diagnosis: Same as Pre-op Surgeon: Allan Crain Anesthesia: Fractional Estimated Blood Loss (mls): 5 Operative Report Dictated: Yes
[2016-11-15] MEDS ORDERED: ACETAMINOPHEN 650 MG/20.3 ML ORAL SOLUTION (CUPS) NGT PRN (16:31)
--- NOTE | 2016-11-15 16:36 | EKG ---
Test Reason : Blood Pressure : / mmHG Vent. Rate : 086 BPM Atrial Rate : 086 BPM P-R Int : 200 ms QRS Dur : 084 ms QT Int : 380 ms P-R-T Axes : 107 080 067 degrees QTc Int : 454 ms NORMAL SINUS RHYTHM NORMAL ECG WHEN COMPARED WITH ECG OF 27-OCT-2016 02:38, SINUS RHYTHM HAS REPLACED ATRIAL FIBRILLATION T WAVE INVERSION NO LONGER EVIDENT IN INFERIOR LEADS T WAVE INVERSION NO LONGER EVIDENT IN LATERAL LEADS Confirmed by PRIYANKA CROCKETT MD ([id number]) on 11/15/2016 4:36:07 PM Referred By: Danita CALIX Confirmed By:PRIYANKA CROCKETT MD
[2016-11-15] MEDS ORDERED: INFLUENZA VACCINE 45 MCG/0.5 ML (MDV 16-17) IM ONE (17:45)
[2016-11-15] MEDS: ACETAMINOPHEN 1000 MG/100 ML VIAL (NON FORMULARY) IVPB PRN (23:48)
[2016-11-16] MEDS ORDERED: LEVOFLOXACIN 500 MG IVPB 100 ML IVPB ONE (01:00)
[2016-11-16 01:20] LABS: BASOPHIL 0.4 % (0-2.0); EOSINOPHIL 1.5 % (0-4.5); MCH 32.9 pg (25.7-33.7); MCHC 33.3 g/dl (32.0-36.0); MEAN CELL VOLUME 98.8 fl (80-96); MEAN PLT VOLUME 10.4 fl (7.5-11.1); NEUTROPHILS 81.5 % (42.8-82.8); PLATELET COUNT 135 K/MM3 (134-434); RDW 22.7 % (11.6-15.6)
[2016-11-16 01:40] LABS: CALCIUM 8.1 mg/dL (8.5-10.1); CREATININE 4.2 mg/dL (0.55-1.02)
--- NOTE | 2016-11-16 08:20 | PROC ---
Procedure Note Procedure: Anesthesia Post op Pt seen and examined S:Sleep O: Vital Signs Temperature 99.8 F H 11/16/16 06:00 Pulse Rate 107 H 11/16/16 06:00 Respiratory Rate 22 11/16/16 06:01 Blood Pressure 153/51 11/16/16 06:00 O2 Sat by Pulse Oximetry (%) 97 11/15/16 22:00 CBC, BMP 11/16/16 00:45 11/16/16 00:45 A/P:Current Active Problems Anemia (Acute) Anoxic brain damage (Acute) Cardiopulmonary arrest (Acute) DVT (deep venous thrombosis) (Acute) Dysphagia (Acute) ESRD (end stage renal disease) on dialysis (Acute) GI bleeding (Acute) HCV (hepatitis C virus) (Acute) Metabolic encephalopathy (Acute) Pneumonia (Acute) Respiratory failure (Acute) Shock (Acute) s/p venogram Critical condition Continue current care Berry Agrawal MD
[2016-11-16] MEDS: PANTOPRAZOLE SOD 40 MG SUSPENSION PACKET NGT SCH (09:35)
[2016-11-16] MEDS: BACITRACIN 30 GM TUBE TOPICAL OINTMENT TP SCH (09:36)
[2016-11-16] MEDS: CALCITRIOL 1 MCG/ML BOT NGT SCH (09:38)
[2016-11-16] MEDS: NAPH,MB-DB/K PH,MBDB POWDER PACKET PO SCH (09:38)
[2016-11-16] MEDS: levETIRAcetam 500 MG/5 ML ORAL SOLUTION (UNIT-DOSE CUPS) NGT SCH (09:38)
[2016-11-16] MEDS ORDERED: EPOETIN ALFA 10,000 UNIT/1 ML VIAL IVPUSH ONE (10:00)
--- NOTE | 2016-11-16 11:44 | PN ---
Progress Note, Physician Chief Complaint: HD IN PROGRESS BEDSIDE NGT IN PLACE NAD - Current Medication List Current Medications: Active Medications Acetaminophen (Ofirmev Injection -) 700 mg IVPB Q6H PRN PRN Reason: FEVER Last Admin: 11/15/16 23:48 Dose: 700 mg Acetaminophen (Tylenol Oral Solution -) 650 mg NGT Q6H PRN PRN Reason: FEVER OR PAIN Last Admin: 11/16/16 09:36 Dose: 650 mg Amino Acids (Prosource No Carb Liquid Pkt) 30 ml PO BID@0800,1730 [facility] Last Admin: 11/15/16 19:04 Dose: 30 ml Bacitracin (Bacitracin -) 1 applic TP DAILY [facility] Last Admin: 11/16/16 09:36 Dose: 1 applic Calcitriol (Rocaltrol Liquid -) 0.25 mcg NGT DAILY [facility] Last Admin: 11/16/16 09:38 Dose: 0.25 mcg Levetiracetam (Keppra Oral Solution -) 500 mg NGT BID [facility] Last Admin: 11/16/16 09:38 Dose: 500 mg Pantoprazole Sodium (Protonix Packets For Oral Suspension -) 40 mg NGT BID [facility] Last Admin: 11/16/16 09:35 Dose: 40 mg Potassium Phos/Sodium Phos (Phos-Nak Packet -) 1 packet PO DAILY [facility] Last Admin: 11/16/16 09:38 Dose: 1 packet - Objective Vital Signs: Vital Signs Temperature 99.9 F H 11/16/16 09:55 Pulse Rate 62 11/16/16 11:30 Respiratory Rate 15 11/16/16 11:30 Blood Pressure 109/51 11/16/16 11:30 O2 Sat by Pulse Oximetry (%) 97 11/15/16 22:00 Constitutional: Yes: No Distress Eyes: Yes: WNL HENT: Yes: WNL Neck: Yes: WNL Cardiovascular: Yes: WNL Respiratory: Yes: Mechanically Ventilated, Other Gastrointestinal: Yes: Distention ...Rectal Exam: Yes: Other (RECTAL TUBE) Genitourinary: Yes: Incontinence, Other Musculoskeletal: Yes: Muscle Weakness Extremities: Yes: Other Edema: No Peripheral Pulses WNL: Yes Integumentary: Yes: Pressure Ulcer, Other Wound/Incision: Yes: Dressing Dry and Intact Neurological: Yes: Pre-Existing Deficit, Weakness ...Motor Strength: LLE, RLE Psychiatric: Yes: Agitated, Other Labs: CBC, BMP 11/16/16 00:45 11/16/16 00:45 INR, PTT INR 1.33 (0.82-1.09) H 11/14/16 06:15 Fibrinogen 279.0 mg/dL (238-498) 11/14/16 06:15 Problem List - Problems (1) Cardiopulmonary arrest Code(s): I46.9 - CARDIAC ARREST, CAUSE UNSPECIFIED (2) DVT (deep venous thrombosis) Code(s): I82.409 - ACUTE EMBOLISM AND THOMBOS UNSP DEEP VN UNSP LOWER EXTREMITY (3) ESRD (end stage renal disease) on dialysis Code(s): N18.6 - END STAGE RENAL DISEASE Z99.2 - DEPENDENCE ON RENAL DIALYSIS (4) HCV (hepatitis C virus) Code(s): B19.20 - UNSPECIFIED VIRAL HEPATITIS C WITHOUT HEPATIC COMA (5) Metabolic encephalopathy Code(s): G93.41 - METABOLIC ENCEPHALOPATHY (6) Pneumonia Code(s): J18.9 - PNEUMONIA, UNSPECIFIED ORGANISM (7) Respiratory failure Code(s): J96.90 - RESPIRATORY FAILURE, UNSP, UNSP W HYPOXIA OR HYPERCAPNIA (8) Dysphagia Code(s): R13.10 - DYSPHAGIA, UNSPECIFIED Assessment/Plan PERMACATH PLACED, HD IN PROGRESS CAN NOW FOCUS ON FEEDING TUBE OPTIONS EITHER GASTRIC VS JEJENUM GI FOR EGD PRIOR FOR DIAGNOSTIC VIEW WILL NEED SURGICAL CONSULT FOR J TUBE MOST LIKELY WEAN OFF VENT TOLERATED IV ABX PER D FEVER YESTERDAY
--- NOTE | 2016-11-16 11:52 | PN ---
Progress Note (short form) - Note Progress Note: PULMONARY Febrile overnight. Vented on volume assist control. Awake and alert. Last Vital Signs Temp Pulse Resp BP Pulse Ox 99.9 F H 62 15 109/51 97 11/16/16 09:55 11/16/16 11:30 11/16/16 11:30 11/16/16 11:30 11/15/16 22:00 Gen: vented, awake Heart: RRR Lung: decreased breath sounds at the bases Abd: soft, nontender Ext: + UE edema CBC, BMP 11/16/16 00:45 11/16/16 00:45 Active Medications Acetaminophen (Ofirmev Injection -) 700 mg IVPB Q6H PRN PRN Reason: FEVER Last Admin: 11/15/16 23:48 Dose: 700 mg Acetaminophen (Tylenol Oral Solution -) 650 mg NGT Q6H PRN PRN Reason: FEVER OR PAIN Last Admin: 11/16/16 09:36 Dose: 650 mg Amino Acids (Prosource No Carb Liquid Pkt) 30 ml PO BID@0800,1730 [facility] Last Admin: 11/15/16 19:04 Dose: 30 ml Bacitracin (Bacitracin -) 1 applic TP DAILY [facility] Last Admin: 11/16/16 09:36 Dose: 1 applic Calcitriol (Rocaltrol Liquid -) 0.25 mcg NGT DAILY [facility] Last Admin: 11/16/16 09:38 Dose: 0.25 mcg Levetiracetam (Keppra Oral Solution -) 500 mg NGT BID [facility] Last Admin: 11/16/16 09:38 Dose: 500 mg Pantoprazole Sodium (Protonix Packets For Oral Suspension -) 40 mg NGT BID [facility] Last Admin: 11/16/16 09:35 Dose: 40 mg Potassium Phos/Sodium Phos (Phos-Nak Packet -) 1 packet PO DAILY [facility] Last Admin: 11/16/16 09:38 Dose: 1 packet A/P s/p PEA Cardiopulmonary Arrest s/p Hypothermia Protocol s/p Tracheostomy Pneumonia s/p Septic Shock Pulmonary HTN Lactic Acidosis resolved ESRD on HD r/o Anoxic Encephalopathy RLE distal DVT GI Bleed Thrombocytopenia - HD per renal - f/u cultures - spontaneous breathing trials as tolerated - will need PEG placement pending family wishes - DVT/GI prophylaxis - poor overall prognosis
[2016-11-16] MEDS ORDERED: PT OWN MED DRAWER 7, Y5N ONE ×2 (12:34→21:37)
--- NOTE | 2016-11-16 13:32 | PN ---
Progress Note, [employer] - Note Progress Note: Pt was in OR yesterday and for HD today. PMV on hold for now. Selected Entries 11/14/16 11/14/16 11/14/16 01:02 06:00 09:53 Temperature 100.2 F H 99.9 F H 98.4 F 11/14/16 11/14/16 11/14/16 14:57 19:00 23:25 Temperature 98.9 F 99.2 F 100.1 F H 11/15/16 11/15/16 11/15/16 01:23 02:21 06:00 Temperature 99.8 F H 99.8 F H 100.9 F H 11/15/16 11/15/16 11/15/16 10:00 14:00 15:38 Temperature 100.6 F H 98.5 F 98.2 F 11/15/16 11/15/16 11/15/16 16:40 19:00 23:00 Temperature 97.8 F 98.3 F 103.0 F H 11/16/16 11/16/16 11/16/16 02:00 06:00 09:55 Temperature 100.9 F H 99.8 F H 99.9 F H 11/16/16 10:00 Temperature 102.4 F H Laboratory Tests 11/14/16 11/16/16 06:15 00:45 WBC 7.2 10.0 D Plan is for J tube, per PMD
--- NOTE | 2016-11-16 14:30 | OP ---
DATE OF OPERATION: 11/15/2016 PREOPERATIVE DIAGNOSIS: Rule out left arteriovenous fistula stenosis. POSTOPERATIVE DIAGNOSIS: Rule out left arteriovenous fistula stenosis. PROCEDURE: Venogram, left arteriovenous fistula. FINDINGS: No stenosis in the left AV fistula. SURGEON: Allan Wagner DO ANESTHESIA: Fractional. BLOOD LOSS: 5 mL. The patient is a 80-year-old female that has a left AV fistula with certain scabs on it. We are trying to avoid the scabs with any punctures and trying to see what the fistula looks like above and below those areas. It was felt that she would need a venogram. Patient's was consented for the procedure, understanding all risks, benefits, and alternatives. Was then taken to the operating room. Once in the operative suite, placed on the operating table in the supine manner. The area of the left arm was prepped and draped in sterile surgical manner. We then injected 2 mL of lidocaine 1% in the proximal AV fistula and using a micropuncture needle we punctured the left AV fistula. A micropuncture wire was inserted. Micropuncture sheath was inserted as well. We then went ahead and shot an angiogram through the micropuncture sheath via hand injection, showing that the fistula was patent. There were no areas of stenosis, and the fistula was very tortuous going up the arm and all the way into the chest. At this point, we using a 4-0 Biosyn suture placed a figure-of-8 stitch around the sheath and the sheath was pulled. The area of the fistula was then marked so that the fistula can be punctured easily. Patient was transferred to PACU in stable condition. ALLAN WAGNER DO [facility]EL[facility] [employer]ER/[id number]
--- NOTE | 2016-11-16 14:40 | PN ---
Progress Note, Physician History of Present Illness: Pt seen and examined at bedside. She tolerated HD today. - Current Medication List Current Medications: Active Medications Acetaminophen (Ofirmev Injection -) 700 mg IVPB Q6H PRN PRN Reason: FEVER Last Admin: 11/15/16 23:48 Dose: 700 mg Acetaminophen (Tylenol Oral Solution -) 650 mg NGT Q6H PRN PRN Reason: FEVER OR PAIN Last Admin: 11/16/16 09:36 Dose: 650 mg Amino Acids (Prosource No Carb Liquid Pkt) 30 ml PO BID@0800,1730 [facility] Last Admin: 11/15/16 19:04 Dose: 30 ml Bacitracin (Bacitracin -) 1 applic TP DAILY [facility] Last Admin: 11/16/16 09:36 Dose: 1 applic Calcitriol (Rocaltrol Liquid -) 0.25 mcg NGT DAILY [facility] Last Admin: 11/16/16 09:38 Dose: 0.25 mcg Levetiracetam (Keppra Oral Solution -) 500 mg NGT BID [facility] Last Admin: 11/16/16 09:38 Dose: 500 mg Pantoprazole Sodium (Protonix Packets For Oral Suspension -) 40 mg NGT BID [facility] Last Admin: 11/16/16 09:35 Dose: 40 mg Potassium Phos/Sodium Phos (Phos-Nak Packet -) 1 packet PO DAILY [facility] Last Admin: 11/16/16 09:38 Dose: 1 packet - Objective Vital Signs: Vital Signs Temperature 100 F H 11/16/16 13:46 Pulse Rate 121 H 11/16/16 14:14 Respiratory Rate 26 H 11/16/16 14:14 Blood Pressure 116/56 11/16/16 13:46 O2 Sat by Pulse Oximetry (%) 97 11/16/16 14:14 Constitutional: Yes: Calm Eyes: Yes: Conjunctiva Clear Neck: Yes: Other (trache) Cardiovascular: Yes: S1, S2 Respiratory: Yes: Mechanically Ventilated Gastrointestinal: Yes: Soft Genitourinary: Yes: Incontinence Musculoskeletal: Yes: Muscle Weakness Edema: Yes (improved) Edema: LLE: 1+, RLE: 1+ Neurological: Yes: Other (responds to verbal commands) Labs: CBC, BMP 11/16/16 00:45 11/16/16 00:45 INR, PTT INR 1.33 (0.82-1.09) H 11/14/16 06:15 Fibrinogen 279.0 mg/dL (238-498) 11/14/16 06:15 Problem List - Problems (1) Cardiopulmonary arrest Code(s): I46.9 - CARDIAC ARREST, CAUSE UNSPECIFIED (2) DVT (deep venous thrombosis) Code(s): I82.409 - ACUTE EMBOLISM AND THOMBOS UNSP DEEP VN UNSP LOWER EXTREMITY (3) ESRD (end stage renal disease) on dialysis Code(s): N18.6 - END STAGE RENAL DISEASE Z99.2 - DEPENDENCE ON RENAL DIALYSIS (4) HCV (hepatitis C virus) Code(s): B19.20 - UNSPECIFIED VIRAL HEPATITIS C WITHOUT HEPATIC COMA (5) Respiratory failure Code(s): J96.90 - RESPIRATORY FAILURE, UNSP, UNSP W HYPOXIA OR HYPERCAPNIA Assessment/Plan Current Medications Generic Name Dose Route Start Last Admin Trade Name Freq PRN Reason Stop Dose Admin Acetaminophen 700 mg 11/15/16 16:31 11/15/16 23:48 Ofirmev Injection - IVPB 700 mg Q6H PRN Administration FEVER Acetaminophen 650 mg 11/15/16 16:31 11/16/16 09:36 Tylenol Oral Solution - NGT 650 mg Q6H PRN Administration FEVER OR PAIN Amino Acids 30 ml 11/15/16 17:30 11/15/16 19:04 Prosource No Carb Liquid Pkt PO 30 ml BID@0800,1730 MARIE Administration Bacitracin 1 applic 11/16/16 10:00 11/16/16 09:36 Bacitracin - TP 1 applic DAILY MARIE Administration Calcitriol 0.25 mcg 11/16/16 10:00 11/16/16 09:38 Rocaltrol Liquid - NGT 0.25 mcg DAILY MARIE Administration Levetiracetam 500 mg 11/15/16 22:00 11/16/16 09:38 Keppra Oral Solution - NGT 500 mg BID MARIE Administration Pantoprazole Sodium 40 mg 11/15/16 22:00 11/16/16 09:35 Protonix Packets For Oral Suspension - NGT 40 mg BID AMRIE Administration Potassium Phos/Sodium Phos 1 packet 11/16/16 10:00 11/16/16 09:38 Phos-Nak Packet - PO 1 packet DAILY MARIE Administration 11/13/16 cultures no growth to date 11/16/16 blood cultures pending Impression 1. ESRD 2. s/p cardiopulmonary arrest 3. acute respiratory failure 4. Pneumonia 5. DVT of right leg 6. S/P Seizure following the arrest 7. Right renal complex cyst > 5cms in diameter 8. Anemia 9. Thrombocytopenia 10. H/O HCV 11. GI bleed Plan - pt continues to have fever - she tolerated HD today - cont with feeds - epogen for anemia - monitor platelets - follow up cultures - recall ID - trache care - cont vent support Dr Espino
--- NOTE | 2016-11-16 15:17 | OP ---
DATE OF OPERATION: 11/15/2016 PREOPERATIVE DIAGNOSIS: Rule out stenosis, left arteriovenous fistula. POSTOPERATIVE DIAGNOSIS: Rule out stenosis, left arteriovenous fistula. PROCEDURE: Venogram, left arteriovenous fistula. SURGEON: Allan Wagner DO ANESTHESIA: Fractional. BLOOD LOSS: 5 mL. The patient is a 80-year-old female who has a left AV fistula that has an area with a scab that cannot be cannulated any more. The dialysis nurse tried to cannulate the patient above and below the scab area and found that the fistula was getting infiltrated and there might be a stenosis. It was decided that we would do a venogram. The patient's consented for the procedure, understanding all risks, benefits, alternatives, and the patient was then taken to the operating room. Once in the operating room, she was laid on the operating table in supine manner and the area of the left arm was prepped and draped in a sterile surgical manner. We then went ahead and injected 10 mL of lidocaine 1% at the proximal AV fistula. We then went ahead and took our micropuncture needle and punctured the AV fistula, micropuncture wire was inserted and micropuncture sheath was inserted. We then shot a venogram through the micropuncture sheath, showing that the fistula was patent yet tortuous, going all the way in, and the cephalic vein went all the way up into the cephalic arch which was patent, and all the way into the central veins were patent. At this point we decided there was no more intervention needed. Using a 4-0 Biosyn stitch, we placed a [id number] stitch around our sheath and the sheath was pulled. The area was wet and dried and Dermabond was placed. Patient tolerated procedure, no complication. Patient transferred back in stable condition. ALLAN WAGNER DO [employer] REVIEWER/[id number]
[2016-11-16] MEDS: AMINO ACIDS/PROTEIN HYDROLYS 30 ML LIQUID.PKT PO SCH ×2 (15:29→17:18)
--- NOTE | 2016-11-16 15:37 | PN ---
Progress Note (short form) - Note Progress Note: Surgery- Dr. Ignacio Consult for J tube Discussion with Dr. Lr and Dr. Ignacio about placement of feeding jejunostomy tube. Patient is known to surgical service from a vascular standpoint, s/p venogram of left AVF to rule out stenosis. Patient seen and examined with at bedside. states patient has a history of uterine cancer, s/p hysterectomy and re-implantation of ureters on the bladder. Last Vital Signs Temp Pulse Resp BP Pulse Ox 100 F H 121 H 26 H 116/56 97 11/16/16 13:46 11/16/16 14:14 11/16/16 14:14 11/16/16 13:46 11/16/16 14:14 Patient continues to spike temp to 102 Microbiology 11/13/16 20:00 Blood - Peripheral Venous Blood Culture - Preliminary NO GROWTH OBTAINED AFTER 48 HOURS, INCUBATION TO CONTINUE FOR 3 DAYS. 11/13/16 20:00 Blood - Peripheral Venous Blood Culture - Preliminary NO GROWTH OBTAINED AFTER 48 HOURS, INCUBATION TO CONTINUE FOR 3 DAYS. Blood cultures from 11/16 now pending Exam: Gen: Patient more sedated/lethargic today, trach in place, at bedside Abd: soft, nondistended, vertical midline scar below umbilicus agreeing with procedure for placement of feeding tube next week. Plan for placement of jejunostomy feeding tube possibly Sunday, when medically optimized, afebrile.
--- NOTE | 2016-11-16 16:28 | PN ---
Progress Note, Physician History of Present Illness: High grade fever noted WBC 10 Repeat BC sent, levaquin given Awake, chronically ill appearing - Current Medication List Current Medications: Active Medications Acetaminophen (Ofirmev Injection -) 700 mg IVPB Q6H PRN PRN Reason: FEVER Last Admin: 11/15/16 23:48 Dose: 700 mg Acetaminophen (Tylenol Oral Solution -) 650 mg NGT Q6H PRN PRN Reason: FEVER OR PAIN Last Admin: 11/16/16 09:36 Dose: 650 mg Amino Acids (Prosource No Carb Liquid Pkt) 30 ml PO BID@0800,1730 [facility] Last Admin: 11/16/16 15:29 Dose: 30 ml Bacitracin (Bacitracin -) 1 applic TP DAILY [facility] Last Admin: 11/16/16 09:36 Dose: 1 applic Calcitriol (Rocaltrol Liquid -) 0.25 mcg NGT DAILY [facility] Last Admin: 11/16/16 09:38 Dose: 0.25 mcg Levetiracetam (Keppra Oral Solution -) 500 mg NGT BID [facility] Last Admin: 11/16/16 09:38 Dose: 500 mg Pantoprazole Sodium (Protonix Packets For Oral Suspension -) 40 mg NGT BID [facility] Last Admin: 11/16/16 09:35 Dose: 40 mg Potassium Phos/Sodium Phos (Phos-Nak Packet -) 1 packet PO DAILY [facility] Last Admin: 11/16/16 09:38 Dose: 1 packet - Objective Vital Signs: Vital Signs Temperature 100 F H 11/16/16 13:46 Pulse Rate 121 H 11/16/16 14:14 Respiratory Rate 26 H 11/16/16 14:14 Blood Pressure 116/56 11/16/16 13:46 O2 Sat by Pulse Oximetry (%) 97 11/16/16 14:14 Constitutional: Yes: No Distress, Cachectic Eyes: Yes: Conjunctiva Clear Cardiovascular: Yes: Regular Rate and Rhythm, S1, S2 Respiratory: Yes: Diminished Gastrointestinal: Yes: Normal Bowel Sounds, Soft. No: Tenderness Labs: CBC, BMP 11/16/16 00:45 11/16/16 00:45 INR, PTT INR 1.33 (0.82-1.09) H 11/14/16 06:15 Fibrinogen 279.0 mg/dL (238-498) 11/14/16 06:15 Assessment/Plan S/P cardiopulmonary arrest/ respiratory failure Recurrent fever ESRD Cirrhosis vancomycin allergy await repeat cultures empiric zosyn Prognosis guarded
[2016-11-16] MEDS: PIPERACILLIN/TAZOB 2.25 GM 50 ML IVPB SCH (17:20)
[2016-11-17] MEDS: levETIRAcetam 500 MG/5 ML ORAL SOLUTION (UNIT-DOSE CUPS) NGT SCH (00:31)
[2016-11-17] MEDS: PANTOPRAZOLE SOD 40 MG SUSPENSION PACKET NGT SCH (00:31)
[2016-11-17] MEDS: levETIRAcetam 500 MG/5 ML INJECTION VIAL IVPB SCH ×3 (00:52→23:24)
[2016-11-17] MEDS: PIPERACILLIN/TAZOB 2.25 GM 50 ML IVPB SCH ×3 (02:33→18:14)
[2016-11-17] MEDS: ACETAMINOPHEN 1000 MG/100 ML VIAL (NON FORMULARY) IVPB PRN (06:34)
[2016-11-17 10:19] LABS: HIGH DOSE HEPARIN SRA 4 % (0-20); LOW DOSE HEPARIN SRA 8 % (0-20)
[2016-11-17] MEDS: BACITRACIN 30 GM TUBE TOPICAL OINTMENT TP SCH (10:27)
[2016-11-17] MEDS: NAPH,MB-DB/K PH,MBDB POWDER PACKET PO SCH (10:30)
[2016-11-17] MEDS: AMINO ACIDS/PROTEIN HYDROLYS 30 ML LIQUID.PKT PO SCH ×2 (10:31→18:13)
[2016-11-17] MEDS: PANTOPRAZOLE SODIUM 40 MG/100 ML PRE-DOCKED IVPB SCH (10:31)
[2016-11-17] MEDS: CALCITRIOL 1 MCG/ML BOT NGT SCH (10:31)
--- NOTE | 2016-11-17 12:49 | PN ---
Progress Note, Physician History of Present Illness: pulmonary awake on vent support,-resp distress,remains febrile - Current Medication List Current Medications: Active Medications Acetaminophen (Ofirmev Injection -) 700 mg IVPB Q6H PRN PRN Reason: FEVER Last Admin: 11/17/16 06:34 Dose: 700 mg Acetaminophen (Tylenol Oral Solution -) 650 mg NGT Q6H PRN PRN Reason: FEVER OR PAIN Last Admin: 11/16/16 09:36 Dose: 650 mg Amino Acids (Prosource No Carb Liquid Pkt) 30 ml PO BID@0800,1730 [facility] Last Admin: 11/17/16 10:31 Dose: Not Given Bacitracin (Bacitracin -) 1 applic TP DAILY [facility] Last Admin: 11/17/16 10:27 Dose: 1 applic Calcitriol (Rocaltrol Liquid -) 0.25 mcg NGT DAILY [facility] Last Admin: 11/17/16 10:31 Dose: Not Given Piperacillin Sod/Tazobactam Sod (Zosyn 2.25gm Ivpb (Pre-Docked)) 50 mls @ 100 mls/hr IVPB Q8H-IV MARIE PRN Reason: Protocol Last Admin: 11/17/16 10:31 Dose: 100 mls/hr Levetiracetam (Keppra Injection -) 500 mg IVPB BID [facility] Last Admin: 11/17/16 10:27 Dose: 500 mg Pantoprazole Sodium (Protonix 40mg Ivpb (Pre-Docked)) 40 mg IVPB DAILY [facility] Last Admin: 11/17/16 10:31 Dose: 40 mg Potassium Phos/Sodium Phos (Phos-Nak Packet -) 1 packet PO DAILY [facility] Last Admin: 11/17/16 10:30 Dose: Not Given - Objective Vital Signs: Vital Signs Temperature 100.4 F H 11/17/16 10:00 Pulse Rate 114 H 11/17/16 10:00 Respiratory Rate 40 H 11/17/16 10:25 Blood Pressure 114/52 11/17/16 10:00 O2 Sat by Pulse Oximetry (%) 96 11/17/16 10:25 Constitutional: Yes: Calm, Thin Eyes: Yes: WNL HENT: Yes: WNL Neck: Yes: WNL Cardiovascular: Yes: Regular Rate and Rhythm, S1, S2 Respiratory: Yes: Rhonchi Gastrointestinal: Yes: Normal Bowel Sounds, Soft Extremities: Yes: WNL Edema: Yes Labs: CBC, BMP 11/16/16 00:45 11/16/16 00:45 INR, PTT INR 1.33 (0.82-1.09) H 11/14/16 06:15 Fibrinogen 279.0 mg/dL (238-498) 11/14/16 06:15 Problem List - Problems (1) Anemia Code(s): D64.9 - ANEMIA, UNSPECIFIED Qualifiers: Other causes of anemia: chronic disease, kidney (2) Cardiopulmonary arrest Code(s): I46.9 - CARDIAC ARREST, CAUSE UNSPECIFIED (3) DVT (deep venous thrombosis) Code(s): I82.409 - ACUTE EMBOLISM AND THOMBOS UNSP DEEP VN UNSP LOWER EXTREMITY (4) Dysphagia Code(s): R13.10 - DYSPHAGIA, UNSPECIFIED (5) ESRD (end stage renal disease) on dialysis Code(s): N18.6 - END STAGE RENAL DISEASE Z99.2 - DEPENDENCE ON RENAL DIALYSIS (6) Pneumonia Code(s): J18.9 - PNEUMONIA, UNSPECIFIED ORGANISM (7) Respiratory failure Code(s): J96.90 - RESPIRATORY FAILURE, UNSP, UNSP W HYPOXIA OR HYPERCAPNIA (8) Shock Code(s): R57.9 - SHOCK, UNSPECIFIED Assessment/Plan ASSESSMENT AND PLAN: S/P Trach due to failure to wean s/p PEA Cardiopulmonary Arrest s/p Hypothermia Protocol Pneumonia S/P Septic Shock Pulmonary HTN Lactic Acidosis resolved ESRD on HD RLE distal DVT GI Bleed Thrombocytopenia Fever - HD per renal - empiric antiepileptics - spontaneous breathing trials as tolerated - DVT/GI prophylaxis - monitor lytes,h+h - transfuse prn - antibiotics as per id DR ANGELA
--- NOTE | 2016-11-17 14:10 | PN ---
Progress Note, Physician History of Present Illness: Awake, alert Still febrile Blood c/s prelim no growth - Current Medication List Current Medications: Active Medications Acetaminophen (Ofirmev Injection -) 700 mg IVPB Q6H PRN PRN Reason: FEVER Last Admin: 11/17/16 06:34 Dose: 700 mg Acetaminophen (Tylenol Oral Solution -) 650 mg NGT Q6H PRN PRN Reason: FEVER OR PAIN Last Admin: 11/16/16 09:36 Dose: 650 mg Amino Acids (Prosource No Carb Liquid Pkt) 30 ml PO BID@0800,1730 [facility] Last Admin: 11/17/16 10:31 Dose: Not Given Bacitracin (Bacitracin -) 1 applic TP DAILY [facility] Last Admin: 11/17/16 10:27 Dose: 1 applic Calcitriol (Rocaltrol Liquid -) 0.25 mcg NGT DAILY [facility] Last Admin: 11/17/16 10:31 Dose: Not Given Piperacillin Sod/Tazobactam Sod (Zosyn 2.25gm Ivpb (Pre-Docked)) 50 mls @ 100 mls/hr IVPB Q8H-IV MARIE PRN Reason: Protocol Last Admin: 11/17/16 10:31 Dose: 100 mls/hr Levetiracetam (Keppra Injection -) 500 mg IVPB BID [facility] Last Admin: 11/17/16 10:27 Dose: 500 mg Pantoprazole Sodium (Protonix 40mg Ivpb (Pre-Docked)) 40 mg IVPB DAILY [facility] Last Admin: 11/17/16 10:31 Dose: 40 mg Potassium Phos/Sodium Phos (Phos-Nak Packet -) 1 packet PO DAILY [facility] Last Admin: 11/17/16 10:30 Dose: Not Given - Objective Vital Signs: Vital Signs Temperature 100.4 F H 11/17/16 10:00 Pulse Rate 114 H 11/17/16 10:00 Respiratory Rate 40 H 11/17/16 10:25 Blood Pressure 114/52 11/17/16 10:00 O2 Sat by Pulse Oximetry (%) 96 11/17/16 10:25 Constitutional: Yes: No Distress Eyes: Yes: Conjunctiva Clear Cardiovascular: Yes: Regular Rate and Rhythm, S1, S2 Respiratory: Yes: Diminished Gastrointestinal: Yes: Normal Bowel Sounds, Soft. No: Tenderness Edema: No Labs: CBC, BMP 11/16/16 00:45 11/16/16 00:45 INR, PTT INR 1.33 (0.82-1.09) H 11/14/16 06:15 Fibrinogen 279.0 mg/dL (238-498) 11/14/16 06:15 Assessment/Plan S/P cardiopulmonary arrest/ respiratory failure Recurrent fever ESRD Cirrhosis vancomycin allergy await repeat cultures empiric zosyn Prognosis guarded
--- NOTE | 2016-11-17 15:05 | PN ---
Progress Note, Physician History of Present Illness: Pt seen and examined at bedside. She is awake and responds to commands. - Current Medication List Current Medications: Active Medications Acetaminophen (Ofirmev Injection -) 700 mg IVPB Q6H PRN PRN Reason: FEVER Last Admin: 11/17/16 06:34 Dose: 700 mg Acetaminophen (Tylenol Oral Solution -) 650 mg NGT Q6H PRN PRN Reason: FEVER OR PAIN Last Admin: 11/16/16 09:36 Dose: 650 mg Amino Acids (Prosource No Carb Liquid Pkt) 30 ml PO BID@0800,1730 [facility] Last Admin: 11/17/16 10:31 Dose: Not Given Bacitracin (Bacitracin -) 1 applic TP DAILY [facility] Last Admin: 11/17/16 10:27 Dose: 1 applic Calcitriol (Rocaltrol Liquid -) 0.25 mcg NGT DAILY [facility] Last Admin: 11/17/16 10:31 Dose: Not Given Piperacillin Sod/Tazobactam Sod (Zosyn 2.25gm Ivpb (Pre-Docked)) 50 mls @ 100 mls/hr IVPB Q8H-IV MARIE PRN Reason: Protocol Last Admin: 11/17/16 10:31 Dose: 100 mls/hr Levetiracetam (Keppra Injection -) 500 mg IVPB BID [facility] Last Admin: 11/17/16 10:27 Dose: 500 mg Pantoprazole Sodium (Protonix 40mg Ivpb (Pre-Docked)) 40 mg IVPB DAILY [facility] Last Admin: 11/17/16 10:31 Dose: 40 mg Potassium Phos/Sodium Phos (Phos-Nak Packet -) 1 packet PO DAILY [facility] Last Admin: 11/17/16 10:30 Dose: Not Given - Objective Vital Signs: Vital Signs Temperature 100.4 F H 11/17/16 10:00 Pulse Rate 114 H 11/17/16 10:00 Respiratory Rate 40 H 11/17/16 10:25 Blood Pressure 114/52 11/17/16 10:00 O2 Sat by Pulse Oximetry (%) 96 11/17/16 10:25 Constitutional: Yes: Calm Neck: Yes: Other (trache) Cardiovascular: Yes: S1, S2 Respiratory: Yes: Mechanically Ventilated Gastrointestinal: Yes: Soft Genitourinary: Yes: Incontinence Musculoskeletal: Yes: Muscle Weakness Edema: Yes Edema: LLE: 1+, RLE: 1+ Neurological: Yes: Other (awake) Labs: CBC, BMP 11/16/16 00:45 11/16/16 00:45 INR, PTT INR 1.33 (0.82-1.09) H 11/14/16 06:15 Fibrinogen 279.0 mg/dL (238-498) 11/14/16 06:15 Problem List - Problems (1) Cardiopulmonary arrest Code(s): I46.9 - CARDIAC ARREST, CAUSE UNSPECIFIED (2) DVT (deep venous thrombosis) Code(s): I82.409 - ACUTE EMBOLISM AND THOMBOS UNSP DEEP VN UNSP LOWER EXTREMITY (3) ESRD (end stage renal disease) on dialysis Code(s): N18.6 - END STAGE RENAL DISEASE Z99.2 - DEPENDENCE ON RENAL DIALYSIS (4) HCV (hepatitis C virus) Code(s): B19.20 - UNSPECIFIED VIRAL HEPATITIS C WITHOUT HEPATIC COMA (5) Respiratory failure Code(s): J96.90 - RESPIRATORY FAILURE, UNSP, UNSP W HYPOXIA OR HYPERCAPNIA Assessment/Plan Current Medications Generic Name Dose Route Start Last Admin Trade Name Freq PRN Reason Stop Dose Admin Acetaminophen 700 mg 11/15/16 16:31 11/17/16 06:34 Ofirmev Injection - IVPB 700 mg Q6H PRN Administration FEVER Acetaminophen 650 mg 11/15/16 16:31 11/16/16 09:36 Tylenol Oral Solution - NGT 650 mg Q6H PRN Administration FEVER OR PAIN Amino Acids 30 ml 11/15/16 17:30 11/17/16 10:31 Prosource No Carb Liquid Pkt PO Not Given BID@0800,1730 [facility] Bacitracin 1 applic 11/16/16 10:00 11/17/16 10:27 Bacitracin - TP 1 applic DAILY [facility] Administration Calcitriol 0.25 mcg 11/16/16 10:00 11/17/16 10:31 Rocaltrol Liquid - NGT Not Given DAILY [facility] Piperacillin Sod/Tazobactam Sod 50 mls @ 100 mls/hr 11/16/16 18:00 11/17/16 10: 31 Zosyn 2.25gm Ivpb (Pre-Docked) IVPB 100 mls/hr Q8H-IV MARIE Administration Protocol Levetiracetam 500 mg 11/17/16 00:45 11/17/16 10:27 Keppra Injection - IVPB 500 mg BID MARIE Administration Pantoprazole Sodium 40 mg 11/17/16 10:00 11/17/16 10:31 Protonix 40mg Ivpb (Pre-Docked) IVPB 40 mg DAILY [facility] Administration Potassium Phos/Sodium Phos 1 packet 11/16/16 10:00 11/17/16 10:30 Phos-Nak Packet - PO Not Given DAILY [facility] 11/13/16 cultures no growth to date 11/16/16 blood cultures negative to date Impression 1. ESRD 2. s/p cardiopulmonary arrest 3. acute respiratory failure 4. Pneumonia 5. DVT of right leg 6. S/P Seizure following the arrest 7. Right renal complex cyst > 5cms in diameter 8. Anemia 9. Thrombocytopenia 10. H/O HCV 11. GI bleed Plan - ID input appreciated - cultures from the and are negative to date - pt going to IR for NG tube - resume feeds when placement confirmed - will arrange for HD in am - epogen for anemia - monitor platelets - trache care - cont vent support Dr Espino
--- NOTE | 2016-11-17 16:08 | PN ---
Progress Note, Physician Chief Complaint: NGT PLACED WITH IR ASLEEP MITTENS IN PLACE TO PREVENT DISRUPTION OF THERAPY - Current Medication List Current Medications: Active Medications Acetaminophen (Ofirmev Injection -) 700 mg IVPB Q6H PRN PRN Reason: FEVER Last Admin: 11/17/16 06:34 Dose: 700 mg Acetaminophen (Tylenol Oral Solution -) 650 mg NGT Q6H PRN PRN Reason: FEVER OR PAIN Last Admin: 11/16/16 09:36 Dose: 650 mg Amino Acids (Prosource No Carb Liquid Pkt) 30 ml PO BID@0800,1730 [facility] Last Admin: 11/17/16 10:31 Dose: Not Given Bacitracin (Bacitracin -) 1 applic TP DAILY [facility] Last Admin: 11/17/16 10:27 Dose: 1 applic Calcitriol (Rocaltrol Liquid -) 0.25 mcg NGT DAILY [facility] Last Admin: 11/17/16 10:31 Dose: Not Given Epoetin Cirilo (Procrit -) 10,000 unit IVPUSH ONCE ONE Stop: 11/18/16 15:06 Piperacillin Sod/Tazobactam Sod (Zosyn 2.25gm Ivpb (Pre-Docked)) 50 mls @ 100 mls/hr IVPB Q8H-IV MARIE PRN Reason: Protocol Last Admin: 11/17/16 10:31 Dose: 100 mls/hr Levetiracetam (Keppra Injection -) 500 mg IVPB BID [facility] Last Admin: 11/17/16 10:27 Dose: 500 mg Pantoprazole Sodium (Protonix 40mg Ivpb (Pre-Docked)) 40 mg IVPB DAILY [facility] Last Admin: 11/17/16 10:31 Dose: 40 mg Potassium Phos/Sodium Phos (Phos-Nak Packet -) 1 packet PO DAILY [facility] Last Admin: 11/17/16 10:30 Dose: Not Given - Objective Vital Signs: Vital Signs Temperature 99.4 F 11/17/16 14:31 Pulse Rate 107 H 11/17/16 14:31 Respiratory Rate 26 H 11/17/16 15:22 Blood Pressure 123/58 11/17/16 14:31 O2 Sat by Pulse Oximetry (%) 96 11/17/16 10:25 Constitutional: Yes: Mild Distress Eyes: Yes: WNL HENT: Yes: WNL Neck: Yes: WNL Cardiovascular: Yes: WNL Respiratory: Yes: Mechanically Ventilated, Other (TRACHEOSTOMY) Gastrointestinal: Yes: Distention, Other ...Rectal Exam: Yes: Other Genitourinary: Yes: Other Musculoskeletal: Yes: Muscle Weakness Extremities: Yes: Other Edema: Yes Edema: LLE: Trace, RLE: Trace Integumentary: Yes: Pressure Ulcer Wound/Incision: Yes: Other Neurological: Yes: Confusion, Weakness, Other ...Motor Strength: LLE, RLE Psychiatric: Yes: Agitated Labs: CBC, BMP 11/16/16 00:45 11/16/16 00:45 INR, PTT INR 1.33 (0.82-1.09) H 11/14/16 06:15 Fibrinogen 279.0 mg/dL (238-498) 11/14/16 06:15 Problem List - Problems (1) Cardiopulmonary arrest Code(s): I46.9 - CARDIAC ARREST, CAUSE UNSPECIFIED (2) DVT (deep venous thrombosis) Code(s): I82.409 - ACUTE EMBOLISM AND THOMBOS UNSP DEEP VN UNSP LOWER EXTREMITY (3) ESRD (end stage renal disease) on dialysis Code(s): N18.6 - END STAGE RENAL DISEASE Z99.2 - DEPENDENCE ON RENAL DIALYSIS (4) HCV (hepatitis C virus) Code(s): B19.20 - UNSPECIFIED VIRAL HEPATITIS C WITHOUT HEPATIC COMA (5) Metabolic encephalopathy Code(s): G93.41 - METABOLIC ENCEPHALOPATHY (6) Pneumonia Code(s): J18.9 - PNEUMONIA, UNSPECIFIED ORGANISM (7) Respiratory failure Code(s): J96.90 - RESPIRATORY FAILURE, UNSP, UNSP W HYPOXIA OR HYPERCAPNIA (8) Dysphagia Code(s): R13.10 - DYSPHAGIA, UNSPECIFIED Assessment/Plan PERMACATH PLACED, HD IN PROGRESS CAN NOW FOCUS ON FEEDING TUBE OPTIONS EITHER GASTRIC VS JEJENUM GI FOR EGD PRIOR FOR DIAGNOSTIC VIEW WILL NEED SURGICAL CONSULT FOR J TUBE MOST LIKELY WEAN OFF VENT TOLERATED IV ABX PER D FEVER YESTERDAY
[2016-11-17] MEDS ORDERED: ONDANSETRON 4 MG/2 ML VIAL IVPB PRN (22:48)
[2016-11-17] MEDS ORDERED: ONDANSETRON 4 MG/2 ML VIAL IVPB ONE (23:15)
[2016-11-18] MEDS: PIPERACILLIN/TAZOB 2.25 GM 50 ML IVPB SCH ×3 (03:22→17:38)
[2016-11-18] MEDS: ACETAMINOPHEN 1000 MG/100 ML VIAL (NON FORMULARY) IVPB PRN ×2 (04:22→16:57)
--- NOTE | 2016-11-18 08:43 | PN ---
Progress Note (short form) - Note Progress Note: current developments noted plan for Jtube as soon as we ge the green light from medicine
[2016-11-18] MEDS ORDERED: EPOETIN ALFA 10,000 UNIT/1 ML VIAL IVPUSH ONE (08:45)
--- NOTE | 2016-11-18 09:27 | PN ---
Progress Note (short form) - Note Progress Note: PULMONARY Fever curve trending down. Vented on volume assist control. Awake and alert. Last Vital Signs Temp Pulse Resp BP Pulse Ox 98.8 F 89 20 127/58 98 11/18/16 06:00 11/18/16 06:00 11/18/16 06:25 11/18/16 06:00 11/17/16 22:00 Gen: vented, awake Heart: RRR Lung: decreased breath sounds at the bases Abd: soft, nontender Ext: + UE edema CBC, BMP 11/16/16 00:45 11/16/16 00:45 Active Medications Acetaminophen (Ofirmev Injection -) 700 mg IVPB Q6H PRN PRN Reason: FEVER Last Admin: 11/18/16 04:22 Dose: 700 mg Acetaminophen (Tylenol Oral Solution -) 650 mg NGT Q6H PRN PRN Reason: FEVER OR PAIN Last Admin: 11/16/16 09:36 Dose: 650 mg Amino Acids (Prosource No Carb Liquid Pkt) 30 ml PO BID@0800,1730 [facility] Last Admin: 11/17/16 18:13 Dose: 30 ml Bacitracin (Bacitracin -) 1 applic TP DAILY [facility] Last Admin: 11/17/16 10:27 Dose: 1 applic Calcitriol (Rocaltrol Liquid -) 0.25 mcg NGT DAILY [facility] Last Admin: 11/17/16 10:31 Dose: Not Given Piperacillin Sod/Tazobactam Sod (Zosyn 2.25gm Ivpb (Pre-Docked)) 50 mls @ 100 mls/hr IVPB Q8H-IV [facility]IE PRN Reason: Protocol Last Admin: 11/18/16 03:22 Dose: 100 mls/hr Levetiracetam (Keppra Injection -) 500 mg IVPB BID [facility] Last Admin: 11/17/16 23:24 Dose: 500 mg Ondansetron HCl (Zofran Injection) 4 mg IVPB Q4H PRN PRN Reason: NAUSEA AND/OR VOMITING Pantoprazole Sodium (Protonix 40mg Ivpb (Pre-Docked)) 40 mg IVPB DAILY [facility] Last Admin: 11/17/16 10:31 Dose: 40 mg Potassium Phos/Sodium Phos (Phos-Nak Packet -) 1 packet PO DAILY [facility] Last Admin: 11/17/16 10:30 Dose: Not Given A/P s/p PEA Cardiopulmonary Arrest s/p Hypothermia Protocol s/p Tracheostomy Pneumonia s/p Septic Shock Pulmonary HTN Lactic Acidosis resolved ESRD on HD r/o Anoxic Encephalopathy RLE distal DVT GI Bleed Thrombocytopenia - HD per renal - antibiotics per ID - f/u cultures - spontaneous breathing trials as tolerated - J tube placement when stable - DVT/GI prophylaxis
[2016-11-18] MEDS ORDERED: PT OWN MED DRAWER 7, Y5N ONE (11:07)
[2016-11-18] MEDS: AMINO ACIDS/PROTEIN HYDROLYS 30 ML LIQUID.PKT PO SCH ×2 (11:10→17:19)
[2016-11-18] MEDS: PANTOPRAZOLE SODIUM 40 MG/100 ML PRE-DOCKED IVPB SCH (11:10)
[2016-11-18] MEDS: NAPH,MB-DB/K PH,MBDB POWDER PACKET PO SCH (11:10)
[2016-11-18] MEDS: BACITRACIN 30 GM TUBE TOPICAL OINTMENT TP SCH (11:10)
[2016-11-18] MEDS: levETIRAcetam 500 MG/5 ML INJECTION VIAL IVPB SCH ×2 (11:10→22:49)
[2016-11-18] MEDS: CALCITRIOL 1 MCG/ML BOT NGT SCH (11:11)
--- NOTE | 2016-11-18 13:57 | PN ---
Progress Note, Physician - Current Medication List Current Medications: Active Medications Acetaminophen (Ofirmev Injection -) 700 mg IVPB Q6H PRN PRN Reason: FEVER Last Admin: 11/18/16 04:22 Dose: 700 mg Acetaminophen (Tylenol Oral Solution -) 650 mg NGT Q6H PRN PRN Reason: FEVER OR PAIN Last Admin: 11/16/16 09:36 Dose: 650 mg Amino Acids (Prosource No Carb Liquid Pkt) 30 ml PO BID@0800,1730 [facility] Last Admin: 11/18/16 11:10 Dose: Not Given Bacitracin (Bacitracin -) 1 applic TP DAILY [facility] Last Admin: 11/18/16 11:10 Dose: 1 applic Calcitriol (Rocaltrol Liquid -) 0.25 mcg NGT DAILY [facility] Last Admin: 11/18/16 11:11 Dose: Not Given Piperacillin Sod/Tazobactam Sod (Zosyn 2.25gm Ivpb (Pre-Docked)) 50 mls @ 100 mls/hr IVPB Q8H-IV MARIE PRN Reason: Protocol Last Admin: 11/18/16 11:11 Dose: 100 mls/hr Levetiracetam (Keppra Injection -) 500 mg IVPB BID [facility] Last Admin: 11/18/16 11:10 Dose: 500 mg Ondansetron HCl (Zofran Injection) 4 mg IVPB Q4H PRN PRN Reason: NAUSEA AND/OR VOMITING Pantoprazole Sodium (Protonix 40mg Ivpb (Pre-Docked)) 40 mg IVPB DAILY [facility] Last Admin: 11/18/16 11:10 Dose: 40 mg Potassium Phos/Sodium Phos (Phos-Nak Packet -) 1 packet PO DAILY [facility] Last Admin: 11/18/16 11:10 Dose: Not Given - Objective Vital Signs: Vital Signs Temperature 98.3 F 11/18/16 07:05 Pulse Rate 96 H 11/18/16 10:20 Respiratory Rate 18 11/18/16 10:20 Blood Pressure 117/60 11/18/16 10:20 O2 Sat by Pulse Oximetry (%) 96 11/18/16 10:00 Cardiovascular: Yes: S1, S2 Respiratory: Yes: Mechanically Ventilated Gastrointestinal: Yes: Normal Bowel Sounds, Soft Labs: CBC, BMP 11/16/16 00:45 11/16/16 00:45 INR, PTT INR 1.33 (0.82-1.09) H 11/14/16 06:15 Fibrinogen 279.0 mg/dL (238-498) 11/14/16 06:15 Problem List - Problems (1) ESRD (end stage renal disease) on dialysis Assessment/Plan: RENAL CONSULT FOLLOW RENAL FUNCTION Code(s): N18.6 - END STAGE RENAL DISEASE Z99.2 - DEPENDENCE ON RENAL DIALYSIS (2) Pneumonia Code(s): J18.9 - PNEUMONIA, UNSPECIFIED ORGANISM (3) Respiratory failure Assessment/Plan: VENT SETTING PER PULM FOLLOW SAT Code(s): J96.90 - RESPIRATORY FAILURE, UNSP, UNSP W HYPOXIA OR HYPERCAPNIA (4) Anemia Assessment/Plan: MONITOR LABS Code(s): D64.9 - ANEMIA, UNSPECIFIED Qualifiers: Other causes of anemia: chronic disease, kidney (5) Fever Assessment/Plan: IV ABX CULTURES RPT LACTIC ACID Code(s): R50.9 - FEVER, UNSPECIFIED
--- NOTE | 2016-11-18 15:20 | PN ---
Progress Note, Physician History of Present Illness: Pt seen and examined at bedside. She responds to verbal stimuli. She tolerated HD today. - Current Medication List Current Medications: Active Medications Acetaminophen (Ofirmev Injection -) 700 mg IVPB Q6H PRN PRN Reason: FEVER Last Admin: 11/18/16 04:22 Dose: 700 mg Acetaminophen (Tylenol Oral Solution -) 650 mg NGT Q6H PRN PRN Reason: FEVER OR PAIN Last Admin: 11/16/16 09:36 Dose: 650 mg Amino Acids (Prosource No Carb Liquid Pkt) 30 ml PO BID@0800,1730 [facility] Last Admin: 11/18/16 11:10 Dose: Not Given Bacitracin (Bacitracin -) 1 applic TP DAILY [facility] Last Admin: 11/18/16 11:10 Dose: 1 applic Calcitriol (Rocaltrol Liquid -) 0.25 mcg NGT DAILY [facility] Last Admin: 11/18/16 11:11 Dose: Not Given Piperacillin Sod/Tazobactam Sod (Zosyn 2.25gm Ivpb (Pre-Docked)) 50 mls @ 100 mls/hr IVPB Q8H-IV [facility]IE PRN Reason: Protocol Last Admin: 11/18/16 11:11 Dose: 100 mls/hr Levetiracetam (Keppra Injection -) 500 mg IVPB BID [facility] Last Admin: 11/18/16 11:10 Dose: 500 mg Ondansetron HCl (Zofran Injection) 4 mg IVPB Q4H PRN PRN Reason: NAUSEA AND/OR VOMITING Pantoprazole Sodium (Protonix 40mg Ivpb (Pre-Docked)) 40 mg IVPB DAILY [facility] Last Admin: 11/18/16 11:10 Dose: 40 mg Potassium Phos/Sodium Phos (Phos-Nak Packet -) 1 packet PO DAILY [facility] Last Admin: 11/18/16 11:10 Dose: Not Given - Objective Vital Signs: Vital Signs Temperature 98.9 F 11/18/16 10:00 Pulse Rate 96 H 11/18/16 10:20 Respiratory Rate 17 11/18/16 14:11 Blood Pressure 117/60 11/18/16 10:20 O2 Sat by Pulse Oximetry (%) 96 11/18/16 10:00 Constitutional: Yes: Calm Eyes: Yes: Conjunctiva Clear Neck: Yes: Other (trache) Cardiovascular: Yes: S1, S2 Respiratory: Yes: Mechanically Ventilated Gastrointestinal: Yes: Normal Bowel Sounds, Soft Genitourinary: Yes: Incontinence Musculoskeletal: Yes: Muscle Weakness Edema: Yes Labs: CBC, BMP 11/16/16 00:45 11/16/16 00:45 INR, PTT INR 1.33 (0.82-1.09) H 11/14/16 06:15 Fibrinogen 279.0 mg/dL (238-498) 11/14/16 06:15 Problem List - Problems (1) Cardiopulmonary arrest Code(s): I46.9 - CARDIAC ARREST, CAUSE UNSPECIFIED (2) DVT (deep venous thrombosis) Code(s): I82.409 - ACUTE EMBOLISM AND THOMBOS UNSP DEEP VN UNSP LOWER EXTREMITY (3) ESRD (end stage renal disease) on dialysis Code(s): N18.6 - END STAGE RENAL DISEASE Z99.2 - DEPENDENCE ON RENAL DIALYSIS (4) HCV (hepatitis C virus) Code(s): B19.20 - UNSPECIFIED VIRAL HEPATITIS C WITHOUT HEPATIC COMA (5) Respiratory failure Code(s): J96.90 - RESPIRATORY FAILURE, UNSP, UNSP W HYPOXIA OR HYPERCAPNIA Assessment/Plan Current Medications Generic Name Dose Route Start Last Admin Trade Name Freq PRN Reason Stop Dose Admin Acetaminophen 700 mg 11/15/16 16:31 11/18/16 04:22 Ofirmev Injection - IVPB 700 mg Q6H PRN Administration FEVER Acetaminophen 650 mg 11/15/16 16:31 11/16/16 09:36 Tylenol Oral Solution - NGT 650 mg Q6H PRN Administration FEVER OR PAIN Amino Acids 30 ml 11/15/16 17:30 11/18/16 11:10 Prosource No Carb Liquid Pkt PO Not Given BID@0800,1730 [facility] Bacitracin 1 applic 11/16/16 10:00 11/18/16 11:10 Bacitracin - TP 1 applic DAILY [facility] Administration Calcitriol 0.25 mcg 11/16/16 10:00 11/18/16 11:11 Rocaltrol Liquid - NGT Not Given DAILY [facility] Piperacillin Sod/Tazobactam Sod 50 mls @ 100 mls/hr 11/16/16 18:00 11/18/16 11: 11 Zosyn 2.25gm Ivpb (Pre-Docked) IVPB 100 mls/hr Q8H-IV MARIE Administration Protocol Levetiracetam 500 mg 11/17/16 00:45 11/18/16 11:10 Keppra Injection - IVPB 500 mg BID [facility] Administration Ondansetron HCl 4 mg 11/17/16 22:48 Zofran Injection IVPB Q4H PRN NAUSEA AND/OR VOMITING Pantoprazole Sodium 40 mg 11/17/16 10:00 11/18/16 11:10 Protonix 40mg Ivpb (Pre-Docked) IVPB 40 mg DAILY [facility] Administration Potassium Phos/Sodium Phos 1 packet 11/16/16 10:00 11/18/16 11:10 Phos-Nak Packet - PO Not Given DAILY [facility] 11/13/16 cultures no growth to date 11/16/16 blood cultures negative to date Impression 1. ESRD 2. s/p cardiopulmonary arrest 3. acute respiratory failure 4. Pneumonia 5. DVT of right leg 6. S/P Seizure following the arrest 7. Right renal complex cyst > 5cms in diameter 8. Anemia 9. Thrombocytopenia 10. H/O HCV 11. GI bleed Plan - pt tolerated HD today - epogen for anemia - pt has antibodies and can not be transfused on HD - monitor platelets - trache care - cont vent support - discussed plan with pts - check phos and mag levels Dr Espino
[2016-11-18 17:46] LABS: MCH 32.1 pg (25.7-33.7)
[2016-11-18 17:53] LABS: BASOPHIL 0.3 % (0-2.0); MCHC 32.4 g/dl (32.0-36.0); MEAN CELL VOLUME 99.1 fl (80-96); MEAN PLT VOLUME 9.2 fl (7.5-11.1); NEUTROPHILS 81.1 % (42.8-82.8); PLATELET COUNT 167 K/MM3 (134-434); RDW 23.3 % (11.6-15.6)
--- NOTE | 2016-11-18 18:29 | PN ---
Progress Note (short form) - Note Progress Note: NEUROLOGY FOLLOW-UP: Events reviewed. Patient examined. 80 yo woman with Multiple medical problems, ESRD- on HD, admitted with persistent GI upset, S/P [place]. No seizures on Keppra 5oo mg q12 hrs. Chronic anemia and persistent Lactic acidosis without obvious source of infection PATY: s/p Trache. AV Fistula in Left arm NEURO: Lethargic. Opens eyes to name. + Spontaneous respirations Follows no commands. Blinks to visual threat all saenz. Reactive pupils, Corneals ++, Full EOM's to Doll's head. Minimal spont mov'ts, kingsley R arm. Areflexic. Plantars silent. Withdraws to pinch. 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 SUGGEST:Cont. supportive care. Persistent lactic acidosis can be seen with Thiamine deficiency. Check B1 levels. If low Rx with IV Thiamine 250 mg IVPB QID x 3 days and repeat lactic acid levels. Prognosis for functional recovery at this juncture is poor. Thank you very much, Tonny Campoverde MD
[2016-11-18] MEDS: AMINO ACIDS 4.25%/D5W 1,000 ML IV SCH (19:10)
[2016-11-19] MEDS: PIPERACILLIN/TAZOB 2.25 GM 50 ML IVPB SCH ×3 (01:48→17:18)
[2016-11-19] MEDS: ACETAMINOPHEN 1000 MG/100 ML VIAL (NON FORMULARY) IVPB PRN (04:07)
--- NOTE | 2016-11-19 11:01 | PN ---
Progress Note (short form) - Note Progress Note: PULMONARY Fever of 101.3 yesterday. Vented on volume assist control. Awake. Last Vital Signs Temp Pulse Resp BP Pulse Ox 98.0 F 94 H 19 136/61 96 11/19/16 06:00 11/19/16 06:00 11/19/16 06:05 11/19/16 06:00 11/18/16 22:00 Gen: vented, awake Heart: RRR Lung: decreased breath sounds at the bases Abd: soft, nontender Ext: + UE edema CBC, BMP 11/18/16 17:33 11/16/16 00:45 Active Medications Acetaminophen (Ofirmev Injection -) 700 mg IVPB Q6H PRN PRN Reason: FEVER Last Admin: 11/19/16 04:07 Dose: 700 mg Acetaminophen (Tylenol Oral Solution -) 650 mg NGT Q6H PRN PRN Reason: FEVER OR PAIN Last Admin: 11/16/16 09:36 Dose: 650 mg Amino Acids (Prosource No Carb Liquid Pkt) 30 ml PO BID@0800,1730 [facility] Last Admin: 11/18/16 17:19 Dose: Not Given Bacitracin (Bacitracin -) 1 applic TP DAILY [facility] Last Admin: 11/18/16 11:10 Dose: 1 applic Calcitriol (Rocaltrol Liquid -) 0.25 mcg NGT DAILY [facility] Last Admin: 11/18/16 11:11 Dose: Not Given Piperacillin Sod/Tazobactam Sod (Zosyn 2.25gm Ivpb (Pre-Docked)) 50 mls @ 100 mls/hr IVPB Q8H-IV [facility] PRN Reason: Protocol Last Admin: 11/19/16 01:48 Dose: 100 mls/hr Amino Acids (Clinimix -) 1,000 mls @ 40 mls/hr IV ASDIR [facility] Last Admin: 11/18/16 19:10 Dose: 40 mls/hr Levetiracetam (Keppra Injection -) 500 mg IVPB BID [facility] Last Admin: 11/18/16 22:49 Dose: 500 mg Ondansetron HCl (Zofran Injection) 4 mg IVPB Q4H PRN PRN Reason: NAUSEA AND/OR VOMITING Pantoprazole Sodium (Protonix 40mg Ivpb (Pre-Docked)) 40 mg IVPB DAILY [facility] Last Admin: 11/18/16 11:10 Dose: 40 mg Potassium Phos/Sodium Phos (Phos-Nak Packet -) 1 packet PO DAILY [facility] Last Admin: 11/18/16 11:10 Dose: Not Given A/P s/p PEA Cardiopulmonary Arrest s/p Hypothermia Protocol s/p Tracheostomy Pneumonia s/p Septic Shock Pulmonary HTN Lactic Acidosis resolved ESRD on HD r/o Anoxic Encephalopathy RLE distal DVT GI Bleed Thrombocytopenia - HD per renal - antibiotics per ID - f/u cultures - monitor H/H - transfuse as needed - spontaneous breathing trials as tolerated - J tube placement when stable - DVT/GI prophylaxis
--- NOTE | 2016-11-19 11:02 | PN ---
Progress Note, Physician History of Present Illness: HGB LOWER PRBC - Current Medication List Current Medications: Active Medications Acetaminophen (Ofirmev Injection -) 700 mg IVPB Q6H PRN PRN Reason: FEVER Last Admin: 11/19/16 04:07 Dose: 700 mg Acetaminophen (Tylenol Oral Solution -) 650 mg NGT Q6H PRN PRN Reason: FEVER OR PAIN Last Admin: 11/16/16 09:36 Dose: 650 mg Amino Acids (Prosource No Carb Liquid Pkt) 30 ml PO BID@0800,1730 [facility] Last Admin: 11/18/16 17:19 Dose: Not Given Bacitracin (Bacitracin -) 1 applic TP DAILY [facility] Last Admin: 11/18/16 11:10 Dose: 1 applic Calcitriol (Rocaltrol Liquid -) 0.25 mcg NGT DAILY [facility] Last Admin: 11/18/16 11:11 Dose: Not Given Piperacillin Sod/Tazobactam Sod (Zosyn 2.25gm Ivpb (Pre-Docked)) 50 mls @ 100 mls/hr IVPB Q8H-IV [facility] PRN Reason: Protocol Last Admin: 11/19/16 01:48 Dose: 100 mls/hr Amino Acids (Clinimix -) 1,000 mls @ 40 mls/hr IV ASDIR [facility] Last Admin: 11/18/16 19:10 Dose: 40 mls/hr Levetiracetam (Keppra Injection -) 500 mg IVPB BID [facility] Last Admin: 11/18/16 22:49 Dose: 500 mg Ondansetron HCl (Zofran Injection) 4 mg IVPB Q4H PRN PRN Reason: NAUSEA AND/OR VOMITING Pantoprazole Sodium (Protonix 40mg Ivpb (Pre-Docked)) 40 mg IVPB DAILY [facility] Last Admin: 11/18/16 11:10 Dose: 40 mg Potassium Phos/Sodium Phos (Phos-Nak Packet -) 1 packet PO DAILY [facility] Last Admin: 11/18/16 11:10 Dose: Not Given - Objective Vital Signs: Vital Signs Temperature 98.0 F 11/19/16 06:00 Pulse Rate 94 H 11/19/16 06:00 Respiratory Rate 19 11/19/16 06:05 Blood Pressure 136/61 11/19/16 06:00 O2 Sat by Pulse Oximetry (%) 96 11/18/16 22:00 Cardiovascular: Yes: S1, S2 Respiratory: Yes: Mechanically Ventilated Gastrointestinal: Yes: Normal Bowel Sounds, Soft Neurological: Yes: Other (OPENS EYES) Labs: CBC, BMP 11/18/16 17:33 11/16/16 00:45 INR, PTT INR 1.33 (0.82-1.09) H 11/14/16 06:15 Fibrinogen 279.0 mg/dL (238-498) 11/14/16 06:15 Problem List - Problems (1) ESRD (end stage renal disease) on dialysis Assessment/Plan: RENAL CONSULT FOLLOW RENAL FUNCTION Code(s): N18.6 - END STAGE RENAL DISEASE Z99.2 - DEPENDENCE ON RENAL DIALYSIS (2) Pneumonia Assessment/Plan: IV ABX ID CONSULT FOLLOW LABS Code(s): J18.9 - PNEUMONIA, UNSPECIFIED ORGANISM (3) Respiratory failure Assessment/Plan: VENT SETTING PER PULM FOLLOW SAT Code(s): J96.90 - RESPIRATORY FAILURE, UNSP, UNSP W HYPOXIA OR HYPERCAPNIA (4) Anemia Assessment/Plan: MONITOR LABS POST PRBC 1 UNIT IN PROGRESS Code(s): D64.9 - ANEMIA, UNSPECIFIED Qualifiers: Other causes of anemia: chronic disease, kidney (5) Fever Assessment/Plan: IV ABX CULTURES RPT LACTIC ACID Code(s): R50.9 - FEVER, UNSPECIFIED (6) Dysphagia Assessment/Plan: PEG THIS WEEK Code(s): R13.10 - DYSPHAGIA, UNSPECIFIED
[2016-11-19] MEDS: PANTOPRAZOLE SODIUM 40 MG/100 ML PRE-DOCKED IVPB SCH (11:18)
[2016-11-19] MEDS: CALCITRIOL 1 MCG/ML BOT NGT SCH (11:19)
[2016-11-19] MEDS: levETIRAcetam 500 MG/5 ML INJECTION VIAL IVPB SCH ×2 (11:19→22:16)
[2016-11-19] MEDS: BACITRACIN 30 GM TUBE TOPICAL OINTMENT TP SCH (11:19)
[2016-11-19] MEDS: NAPH,MB-DB/K PH,MBDB POWDER PACKET PO SCH (11:19)
[2016-11-19] MEDS: AMINO ACIDS/PROTEIN HYDROLYS 30 ML LIQUID.PKT PO SCH ×2 (11:19→17:18)
[2016-11-19 11:56] LABS: BASOPHIL 0.3 % (0-2.0); EOSINOPHIL 1.7 % (0-4.5); MCHC 33.1 g/dl (32.0-36.0); MEAN CELL VOLUME 96.7 fl (80-96); MEAN PLT VOLUME 8.7 fl (7.5-11.1); NEUTROPHILS 85.2 % (42.8-82.8); PLATELET COUNT 155 K/MM3 (134-434); RDW 22.5 % (11.6-15.6); WHITE BLOOD COUNT 12.9 K/mm3 (4.0-10.0)
[2016-11-19 12:31] LABS: ALBUMIN 1.6 g/dl (3.4-5.0); BILIRUBIN,TOTAL 1.2 mg/dL (0.2-1.0); CALCIUM 8.4 mg/dL (8.5-10.1); CREATININE 2.6 mg/dL (0.55-1.02); MAGNESIUM 1.6 mg/dL (1.8-2.4); PHOSPHOROUS 1.5 mg/dL (2.5-4.9); TOT PROT 6.2 g/dl (6.4-8.2)
[2016-11-19 14:04] LABS: POLYCHROMASIA 1+
[2016-11-19 14:05] LABS: ANISOCYTOSIS 3+
[2016-11-19] MEDS ORDERED: POTASSIUM PHOSPHATE 15 MM in SODIUM CHLORIDE 250 ML IVPB ONE (16:55)
--- NOTE | 2016-11-19 16:55 | PN ---
Progress Note, Physician History of Present Illness: Pt seen and examined at bedside. She responds to verbal commands. - Current Medication List Current Medications: Active Medications Acetaminophen (Ofirmev Injection -) 700 mg IVPB Q6H PRN PRN Reason: FEVER Last Admin: 11/19/16 04:07 Dose: 700 mg Acetaminophen (Tylenol Oral Solution -) 650 mg NGT Q6H PRN PRN Reason: FEVER OR PAIN Last Admin: 11/16/16 09:36 Dose: 650 mg Amino Acids (Prosource No Carb Liquid Pkt) 30 ml PO BID@0800,1730 [facility] Last Admin: 11/19/16 11:19 Dose: Not Given Bacitracin (Bacitracin -) 1 applic TP DAILY [facility] Last Admin: 11/19/16 11:19 Dose: 1 applic Calcitriol (Rocaltrol Liquid -) 0.25 mcg NGT DAILY [facility] Last Admin: 11/19/16 11:19 Dose: Not Given Piperacillin Sod/Tazobactam Sod (Zosyn 2.25gm Ivpb (Pre-Docked)) 50 mls @ 100 mls/hr IVPB Q8H-IV MARIE PRN Reason: Protocol Last Admin: 11/19/16 11:18 Dose: 100 mls/hr Amino Acids (Clinimix -) 1,000 mls @ 40 mls/hr IV ASDIR [facility] Last Admin: 11/18/16 19:10 Dose: 40 mls/hr Levetiracetam (Keppra Injection -) 500 mg IVPB BID [facility] Last Admin: 11/19/16 11:19 Dose: 500 mg Ondansetron HCl (Zofran Injection) 4 mg IVPB Q4H PRN PRN Reason: NAUSEA AND/OR VOMITING Pantoprazole Sodium (Protonix 40mg Ivpb (Pre-Docked)) 40 mg IVPB DAILY [facility] Last Admin: 11/19/16 11:18 Dose: 40 mg Potassium Phos/Sodium Phos (Phos-Nak Packet -) 1 packet PO DAILY [facility] Last Admin: 11/19/16 11:19 Dose: Not Given - Objective Vital Signs: Vital Signs Temperature 98.9 F 11/19/16 14:45 Pulse Rate 97 H 11/19/16 14:45 Respiratory Rate 15 11/19/16 14:45 Blood Pressure 142/62 11/19/16 14:45 O2 Sat by Pulse Oximetry (%) 98 11/19/16 11:10 Constitutional: Yes: Calm Eyes: Yes: Conjunctiva Clear HENT: Yes: Atraumatic Cardiovascular: Yes: S1, S2 Respiratory: Yes: Mechanically Ventilated Gastrointestinal: Yes: Soft Genitourinary: Yes: Incontinence Edema: Yes Neurological: Yes: Other (awake) Psychiatric: Yes: Oriented Labs: CBC, BMP 11/19/16 11:52 11/19/16 11:52 INR, PTT INR 1.33 (0.82-1.09) H 11/14/16 06:15 Fibrinogen 279.0 mg/dL (238-498) 11/14/16 06:15 Problem List - Problems (1) Cardiopulmonary arrest Code(s): I46.9 - CARDIAC ARREST, CAUSE UNSPECIFIED (2) DVT (deep venous thrombosis) Code(s): I82.409 - ACUTE EMBOLISM AND THOMBOS UNSP DEEP VN UNSP LOWER EXTREMITY (3) ESRD (end stage renal disease) on dialysis Code(s): N18.6 - END STAGE RENAL DISEASE Z99.2 - DEPENDENCE ON RENAL DIALYSIS (4) HCV (hepatitis C virus) Code(s): B19.20 - UNSPECIFIED VIRAL HEPATITIS C WITHOUT HEPATIC COMA (5) Respiratory failure Code(s): J96.90 - RESPIRATORY FAILURE, UNSP, UNSP W HYPOXIA OR HYPERCAPNIA Assessment/Plan Current Medications Generic Name Dose Route Start Last Admin Trade Name Freq PRN Reason Stop Dose Admin Acetaminophen 700 mg 11/15/16 16:31 11/19/16 04:07 Ofirmev Injection - IVPB 700 mg Q6H PRN Administration FEVER Acetaminophen 650 mg 11/15/16 16:31 11/16/16 09:36 Tylenol Oral Solution - NGT 650 mg Q6H PRN Administration FEVER OR PAIN Amino Acids 30 ml 11/15/16 17:30 11/19/16 11:19 Prosource No Carb Liquid Pkt PO Not Given BID@0800,1730 MARIE Bacitracin 1 applic 11/16/16 10:00 11/19/16 11:19 Bacitracin - TP 1 applic DAILY MARIE Administration Calcitriol 0.25 mcg 11/16/16 10:00 11/19/16 11:19 Rocaltrol Liquid - NGT Not Given DAILY MARIE Piperacillin Sod/Tazobactam Sod 50 mls @ 100 mls/hr 11/16/16 18:00 11/19/16 11: 18 Zosyn 2.25gm Ivpb (Pre-Docked) IVPB 100 mls/hr Q8H-IV MARIE Administration Protocol Amino Acids 1,000 mls @ 40 mls/hr 11/18/16 18:30 11/18/16 19:10 Clinimix - IV 40 mls/hr ASDIR MARIE Administration Levetiracetam 500 mg 11/17/16 00:45 11/19/16 11:19 Keppra Injection - IVPB 500 mg BID MARIE Administration Ondansetron HCl 4 mg 11/17/16 22:48 Zofran Injection IVPB Q4H PRN NAUSEA AND/OR VOMITING Pantoprazole Sodium 40 mg 11/17/16 10:00 11/19/16 11:18 Protonix 40mg Ivpb (Pre-Docked) IVPB 40 mg DAILY MARIE Administration Potassium Phos/Sodium Phos 1 packet 11/16/16 10:00 11/19/16 11:19 Phos-Nak Packet - PO Not Given DAILY MARIE Laboratory Tests 11/19/16 11:52 Phosphorus 1.5 L D Magnesium 1.6 L 11/13/16 cultures no growth to date 11/16/16 blood cultures negative to date Impression 1. ESRD 2. s/p cardiopulmonary arrest 3. acute respiratory failure 4. Pneumonia 5. DVT of right leg 6. S/P Seizure following the arrest 7. Right renal complex cyst > 5cms in diameter 8. Anemia 9. Thrombocytopenia 10. H/O HCV 11. GI bleed Plan - pt tolerated HD yesterday - next HD is on Sunday - possible peg next week - epogen for anemia - pt has antibodies and can not be transfused on HD - monitor platelets - cont vent support - replace mag and phos Dr Espino
[2016-11-19] MEDS ORDERED: MAGNESIUM SULF 50% (8.12 MEQ/2 ML-1 GM VIAL) IVPB ONE (16:56)
[2016-11-20] MEDS: PIPERACILLIN/TAZOB 2.25 GM 50 ML IVPB SCH ×3 (01:35→17:26)
[2016-11-20 08:53] LABS: CALCIUM 8.5 mg/dL (8.5-10.1); CREATININE 3.1 mg/dL (0.55-1.02); MAGNESIUM 1.9 mg/dL (1.8-2.4); PHOSPHOROUS 2.6 mg/dL (2.5-4.9)
[2016-11-20] MEDS: levETIRAcetam 500 MG/5 ML INJECTION VIAL IVPB SCH ×2 (09:36→22:13)
[2016-11-20] MEDS: PANTOPRAZOLE SODIUM 40 MG/100 ML PRE-DOCKED IVPB SCH (09:36)
[2016-11-20] MEDS: BACITRACIN 30 GM TUBE TOPICAL OINTMENT TP SCH (09:37)
[2016-11-20] MEDS: AMINO ACIDS/PROTEIN HYDROLYS 30 ML LIQUID.PKT PO SCH ×2 (10:02→17:25)
[2016-11-20] MEDS: CALCITRIOL 1 MCG/ML BOT NGT SCH (10:02)
[2016-11-20] MEDS: NAPH,MB-DB/K PH,MBDB POWDER PACKET PO SCH (10:02)
[2016-11-20] MEDS ORDERED: PT OWN MED DRAWER 7, Y5N ONE (10:15)
--- NOTE | 2016-11-20 12:08 | PN ---
Progress Note, Physician History of Present Illness: Lethargic today Breathing non-labored Temps down- afebrile Cultures no growth - Current Medication List Current Medications: Active Medications Acetaminophen (Ofirmev Injection -) 700 mg IVPB Q6H PRN PRN Reason: FEVER Last Admin: 11/19/16 04:07 Dose: 700 mg Acetaminophen (Tylenol Oral Solution -) 650 mg NGT Q6H PRN PRN Reason: FEVER OR PAIN Last Admin: 11/16/16 09:36 Dose: 650 mg Amino Acids (Prosource No Carb Liquid Pkt) 30 ml PO BID@0800,1730 [facility] Last Admin: 11/20/16 10:02 Dose: Not Given Bacitracin (Bacitracin -) 1 applic TP DAILY [facility] Last Admin: 11/20/16 09:37 Dose: 1 applic Calcitriol (Rocaltrol Liquid -) 0.25 mcg NGT DAILY [facility] Last Admin: 11/20/16 10:02 Dose: Not Given Piperacillin Sod/Tazobactam Sod (Zosyn 2.25gm Ivpb (Pre-Docked)) 50 mls @ 100 mls/hr IVPB Q8H-IV MARIE PRN Reason: Protocol Last Admin: 11/20/16 09:36 Dose: 100 mls/hr Amino Acids (Clinimix -) 1,000 mls @ 40 mls/hr IV ASDIR [facility] Last Admin: 11/18/16 19:10 Dose: 40 mls/hr Levetiracetam (Keppra Injection -) 500 mg IVPB BID [facility] Last Admin: 11/20/16 09:36 Dose: 500 mg Ondansetron HCl (Zofran Injection) 4 mg IVPB Q4H PRN PRN Reason: NAUSEA AND/OR VOMITING Pantoprazole Sodium (Protonix 40mg Ivpb (Pre-Docked)) 40 mg IVPB DAILY [facility] Last Admin: 11/20/16 09:36 Dose: 40 mg Potassium Phos/Sodium Phos (Phos-Nak Packet -) 1 packet PO DAILY [facility] Last Admin: 11/20/16 10:02 Dose: Not Given - Objective Vital Signs: Vital Signs Temperature 97.9 F 11/20/16 11:00 Pulse Rate 81 11/20/16 11:00 Respiratory Rate 11/20/16 11:00 Blood Pressure 145/56 11/20/16 11:00 O2 Sat by Pulse Oximetry (%) 99 11/20/16 09:00 Constitutional: Yes: Cachectic Cardiovascular: Yes: Regular Rate and Rhythm, S1, S2 Respiratory: Yes: Diminished Gastrointestinal: Yes: Normal Bowel Sounds, Soft. No: Tenderness Edema: No Labs: CBC, BMP 11/19/16 11:52 11/20/16 06:30 INR, PTT INR 1.33 (0.82-1.09) H 11/14/16 06:15 Fibrinogen 279.0 mg/dL (238-498) 11/14/16 06:15 Assessment/Plan S/P cardiopulmonary arrest/ respiratory failure Recurrent fever- temps down ESRD Cirrhosis vancomycin allergy Continue empiric zosyn additional 24-48hr Prognosis guarded
--- NOTE | 2016-11-20 13:06 | PN ---
Progress Note, Physician History of Present Illness: pulmonary lethargic,on vent support on ac mode - Current Medication List Current Medications: Active Medications Acetaminophen (Ofirmev Injection -) 700 mg IVPB Q6H PRN PRN Reason: FEVER Last Admin: 11/19/16 04:07 Dose: 700 mg Acetaminophen (Tylenol Oral Solution -) 650 mg NGT Q6H PRN PRN Reason: FEVER OR PAIN Last Admin: 11/16/16 09:36 Dose: 650 mg Amino Acids (Prosource No Carb Liquid Pkt) 30 ml PO BID@0800,1730 [facility] Last Admin: 11/20/16 10:02 Dose: Not Given Bacitracin (Bacitracin -) 1 applic TP DAILY [facility] Last Admin: 11/20/16 09:37 Dose: 1 applic Calcitriol (Rocaltrol Liquid -) 0.25 mcg NGT DAILY [facility] Last Admin: 11/20/16 10:02 Dose: Not Given Piperacillin Sod/Tazobactam Sod (Zosyn 2.25gm Ivpb (Pre-Docked)) 50 mls @ 100 mls/hr IVPB Q8H-IV MARIE PRN Reason: Protocol Last Admin: 11/20/16 09:36 Dose: 100 mls/hr Amino Acids (Clinimix -) 1,000 mls @ 40 mls/hr IV ASDIR [facility] Last Admin: 11/18/16 19:10 Dose: 40 mls/hr Levetiracetam (Keppra Injection -) 500 mg IVPB BID [facility] Last Admin: 11/20/16 09:36 Dose: 500 mg Ondansetron HCl (Zofran Injection) 4 mg IVPB Q4H PRN PRN Reason: NAUSEA AND/OR VOMITING Pantoprazole Sodium (Protonix 40mg Ivpb (Pre-Docked)) 40 mg IVPB DAILY [facility] Last Admin: 11/20/16 09:36 Dose: 40 mg Potassium Phos/Sodium Phos (Phos-Nak Packet -) 1 packet PO DAILY [facility] Last Admin: 11/20/16 10:02 Dose: Not Given - Objective Vital Signs: Vital Signs Temperature 97.9 F 11/20/16 11:00 Pulse Rate 81 11/20/16 11:00 Respiratory Rate 17 11/20/16 11:00 Blood Pressure 145/56 11/20/16 11:00 O2 Sat by Pulse Oximetry (%) 99 11/20/16 09:00 Constitutional: Yes: Well Nourished, Other (leyhargic) Eyes: Yes: WNL HENT: Yes: WNL Neck: Yes: Supple (trach) Cardiovascular: Yes: Regular Rate and Rhythm, S1, S2 Respiratory: Yes: Rhonchi (scattered anand rhonchi) Gastrointestinal: Yes: Normal Bowel Sounds, Soft Extremities: Yes: WNL Edema: Yes Labs: CBC, BMP 11/19/16 11:52 11/20/16 06:30 INR, PTT INR 1.33 (0.82-1.09) H 11/14/16 06:15 Fibrinogen 279.0 mg/dL (238-498) 11/14/16 06:15 Problem List - Problems (1) Anemia Code(s): D64.9 - ANEMIA, UNSPECIFIED Qualifiers: Other causes of anemia: chronic disease, kidney (2) Cardiopulmonary arrest Code(s): I46.9 - CARDIAC ARREST, CAUSE UNSPECIFIED (3) DVT (deep venous thrombosis) Code(s): I82.409 - ACUTE EMBOLISM AND THOMBOS UNSP DEEP VN UNSP LOWER EXTREMITY (4) Dysphagia Code(s): R13.10 - DYSPHAGIA, UNSPECIFIED (5) ESRD (end stage renal disease) on dialysis Code(s): N18.6 - END STAGE RENAL DISEASE Z99.2 - DEPENDENCE ON RENAL DIALYSIS (6) Pneumonia Code(s): J18.9 - PNEUMONIA, UNSPECIFIED ORGANISM (7) Respiratory failure Code(s): J96.90 - RESPIRATORY FAILURE, UNSP, UNSP W HYPOXIA OR HYPERCAPNIA (8) Shock Code(s): R57.9 - SHOCK, UNSPECIFIED Assessment/Plan ASSESSMENT AND PLAN: S/P Trach due to failure to wean s/p PEA Cardiopulmonary Arrest s/p Hypothermia Protocol Pneumonia S/P Septic Shock Pulmonary HTN Lactic Acidosis resolved ESRD on HD RLE distal DVT GI Bleed Thrombocytopenia Fever - HD per renal - empiric antiepileptics - spontaneous breathing trials as tolerated - DVT/GI prophylaxis - monitor lytes,h+h - transfuse prn - antibiotics as per id DR ANGELA
[2016-11-20] MEDS: AMINO ACIDS 4.25%/D5W 1,000 ML IV SCH (13:31)
[2016-11-20 13:37] LABS: HIV 1 & 2 AB NEGATIVE; HIV 1 AGp24 NEGATIVE
--- NOTE | 2016-11-20 16:08 | PN ---
Progress Note, Physician History of Present Illness: Pt seen and examined at bedside. She responds to verbal stimuli. - Current Medication List Current Medications: Active Medications Acetaminophen (Ofirmev Injection -) 700 mg IVPB Q6H PRN PRN Reason: FEVER Last Admin: 11/19/16 04:07 Dose: 700 mg Acetaminophen (Tylenol Oral Solution -) 650 mg NGT Q6H PRN PRN Reason: FEVER OR PAIN Last Admin: 11/16/16 09:36 Dose: 650 mg Amino Acids (Prosource No Carb Liquid Pkt) 30 ml PO BID@0800,1730 [facility] Last Admin: 11/20/16 10:02 Dose: Not Given Bacitracin (Bacitracin -) 1 applic TP DAILY [facility] Last Admin: 11/20/16 09:37 Dose: 1 applic Calcitriol (Rocaltrol Liquid -) 0.25 mcg NGT DAILY [facility] Last Admin: 11/20/16 10:02 Dose: Not Given Piperacillin Sod/Tazobactam Sod (Zosyn 2.25gm Ivpb (Pre-Docked)) 50 mls @ 100 mls/hr IVPB Q8H-IV MARIE PRN Reason: Protocol Last Admin: 11/20/16 09:36 Dose: 100 mls/hr Amino Acids (Clinimix -) 1,000 mls @ 40 mls/hr IV ASDIR [facility] Last Admin: 11/20/16 13:31 Dose: 40 mls/hr Levetiracetam (Keppra Injection -) 500 mg IVPB BID [facility] Last Admin: 11/20/16 09:36 Dose: 500 mg Ondansetron HCl (Zofran Injection) 4 mg IVPB Q4H PRN PRN Reason: NAUSEA AND/OR VOMITING Pantoprazole Sodium (Protonix 40mg Ivpb (Pre-Docked)) 40 mg IVPB DAILY [facility] Last Admin: 11/20/16 09:36 Dose: 40 mg Potassium Phos/Sodium Phos (Phos-Nak Packet -) 1 packet PO DAILY [facility] Last Admin: 11/20/16 10:02 Dose: Not Given - Objective Vital Signs: Vital Signs Temperature 98.5 F 11/20/16 14:40 Pulse Rate 81 11/20/16 15:00 Respiratory Rate 15 11/20/16 15:00 Blood Pressure 131/65 02/27/17 14:40 O2 Sat by Pulse Oximetry (%) 99 11/20/16 14:40 Constitutional: Yes: Calm Eyes: Yes: Conjunctiva Clear HENT: Yes: Atraumatic Neck: Yes: Other (trache) Cardiovascular: Yes: S1, S2 Respiratory: Yes: Mechanically Ventilated Gastrointestinal: Yes: Soft Genitourinary: Yes: Incontinence Musculoskeletal: Yes: Muscle Weakness Edema: Yes Edema: LLE: 1+, RLE: 1+ Neurological: Yes: Other (awake) Labs: CBC, BMP 11/19/16 11:52 11/20/16 06:30 INR, PTT INR 1.33 (0.82-1.09) H 11/14/16 06:15 Fibrinogen 279.0 mg/dL (238-498) 11/14/16 06:15 Problem List - Problems (1) Cardiopulmonary arrest Code(s): I46.9 - CARDIAC ARREST, CAUSE UNSPECIFIED (2) DVT (deep venous thrombosis) Code(s): I82.409 - ACUTE EMBOLISM AND THOMBOS UNSP DEEP VN UNSP LOWER EXTREMITY (3) ESRD (end stage renal disease) on dialysis Code(s): N18.6 - END STAGE RENAL DISEASE Z99.2 - DEPENDENCE ON RENAL DIALYSIS (4) HCV (hepatitis C virus) Code(s): B19.20 - UNSPECIFIED VIRAL HEPATITIS C WITHOUT HEPATIC COMA (5) Respiratory failure Code(s): J96.90 - RESPIRATORY FAILURE, UNSP, UNSP W HYPOXIA OR HYPERCAPNIA Assessment/Plan Current Medications Generic Name Dose Route Start Last Admin Trade Name Freq PRN Reason Stop Dose Admin Acetaminophen 700 mg 11/15/16 16:31 11/19/16 04:07 Ofirmev Injection - IVPB 700 mg Q6H PRN Administration FEVER Acetaminophen 650 mg 11/15/16 16:31 11/16/16 09:36 Tylenol Oral Solution - NGT 650 mg Q6H PRN Administration FEVER OR PAIN Amino Acids 30 ml 11/15/16 17:30 11/20/16 10:02 Prosource No Carb Liquid Pkt PO Not Given BID@0800,1730 [facility] Bacitracin 1 applic 11/16/16 10:00 11/20/16 09:37 Bacitracin - TP 1 applic DAILY [facility]IE Administration Calcitriol 0.25 mcg 11/16/16 10:00 11/20/16 10:02 Rocaltrol Liquid - NGT Not Given DAILY MARIE Piperacillin Sod/Tazobactam Sod 50 mls @ 100 mls/hr 11/16/16 18:00 11/20/16 09: 36 Zosyn 2.25gm Ivpb (Pre-Docked) IVPB 100 mls/hr Q8H-IV MARIE Administration Protocol Amino Acids 1,000 mls @ 40 mls/hr 11/18/16 18:30 11/20/16 13:31 Clinimix - IV 40 mls/hr ASDIR MARIE Administration Levetiracetam 500 mg 11/17/16 00:45 11/20/16 09:36 Keppra Injection - IVPB 500 mg BID MARIE Administration Ondansetron HCl 4 mg 11/17/16 22:48 Zofran Injection IVPB Q4H PRN NAUSEA AND/OR VOMITING Pantoprazole Sodium 40 mg 11/17/16 10:00 11/20/16 09:36 Protonix 40mg Ivpb (Pre-Docked) IVPB 40 mg DAILY MARIE Administration Potassium Phos/Sodium Phos 1 packet 11/16/16 10:00 11/20/16 10:02 Phos-Nak Packet - PO Not Given DAILY [facility] Laboratory Tests 11/20/16 06:30 Phosphorus 2.6 D Magnesium 1.9 11/13/16 cultures no growth to date 11/16/16 blood cultures negative to date Impression 1. ESRD 2. s/p cardiopulmonary arrest 3. acute respiratory failure 4. Pneumonia 5. DVT of right leg 6. S/P Seizure following the arrest 7. Right renal complex cyst > 5cms in diameter 8. Anemia 9. Thrombocytopenia 10. H/O HCV 11. GI bleed Plan - will arrange for HD in am - cont clinimix for now - possible peg - epogen for anemia - pt has antibodies and can not be transfused on HD - cont vent support Dr Espino
--- NOTE | 2016-11-20 16:37 | PN ---
Progress Note, Physician Chief Complaint: AWAKE UNHAPPY NODDED HEAD OK WHEN I ASKED PERMISSION TO LISTEN TO HEART - Current Medication List Current Medications: Active Medications Acetaminophen (Ofirmev Injection -) 700 mg IVPB Q6H PRN PRN Reason: FEVER Last Admin: 11/19/16 04:07 Dose: 700 mg Acetaminophen (Tylenol Oral Solution -) 650 mg NGT Q6H PRN PRN Reason: FEVER OR PAIN Last Admin: 11/16/16 09:36 Dose: 650 mg Amino Acids (Prosource No Carb Liquid Pkt) 30 ml PO BID@0800,1730 [facility] Last Admin: 11/20/16 10:02 Dose: Not Given Bacitracin (Bacitracin -) 1 applic TP DAILY [facility] Last Admin: 11/20/16 09:37 Dose: 1 applic Calcitriol (Rocaltrol Liquid -) 0.25 mcg NGT DAILY [facility] Last Admin: 11/20/16 10:02 Dose: Not Given Epoetin Cirilo (Procrit -) 10,000 unit IVPUSH ONCE ONE Stop: 11/21/16 16:09 Piperacillin Sod/Tazobactam Sod (Zosyn 2.25gm Ivpb (Pre-Docked)) 50 mls @ 100 mls/hr IVPB Q8H-IV MARIE PRN Reason: Protocol Last Admin: 11/20/16 09:36 Dose: 100 mls/hr Amino Acids (Clinimix -) 1,000 mls @ 40 mls/hr IV ASDIR [facility] Last Admin: 11/20/16 13:31 Dose: 40 mls/hr Levetiracetam (Keppra Injection -) 500 mg IVPB BID [facility] Last Admin: 11/20/16 09:36 Dose: 500 mg Ondansetron HCl (Zofran Injection) 4 mg IVPB Q4H PRN PRN Reason: NAUSEA AND/OR VOMITING Pantoprazole Sodium (Protonix 40mg Ivpb (Pre-Docked)) 40 mg IVPB DAILY [facility] Last Admin: 11/20/16 09:36 Dose: 40 mg Potassium Phos/Sodium Phos (Phos-Nak Packet -) 1 packet PO DAILY [facility] Last Admin: 11/20/16 10:02 Dose: Not Given - Objective Vital Signs: Vital Signs Temperature 98.5 F 11/20/16 14:40 Pulse Rate 81 11/20/16 15:00 Respiratory Rate 15 11/20/16 15:00 Blood Pressure 131/65 11/20/16 14:40 O2 Sat by Pulse Oximetry (%) 99 11/20/16 14:40 Neck: Yes: Other (TRACH) Cardiovascular: Yes: WNL Respiratory: Yes: WNL Gastrointestinal: Yes: WNL Labs: CBC, BMP 11/19/16 11:52 11/20/16 06:30 INR, PTT INR 1.33 (0.82-1.09) H 11/14/16 06:15 Fibrinogen 279.0 mg/dL (238-498) 11/14/16 06:15 Problem List - Problems (1) Cardiopulmonary arrest Code(s): I46.9 - CARDIAC ARREST, CAUSE UNSPECIFIED (2) DVT (deep venous thrombosis) Code(s): I82.409 - ACUTE EMBOLISM AND THOMBOS UNSP DEEP VN UNSP LOWER EXTREMITY (3) ESRD (end stage renal disease) on dialysis Code(s): N18.6 - END STAGE RENAL DISEASE Z99.2 - DEPENDENCE ON RENAL DIALYSIS (4) Pneumonia Code(s): J18.9 - PNEUMONIA, UNSPECIFIED ORGANISM (5) Respiratory failure Code(s): J96.90 - RESPIRATORY FAILURE, UNSP, UNSP W HYPOXIA OR HYPERCAPNIA (6) Anemia Code(s): D64.9 - ANEMIA, UNSPECIFIED Qualifiers: Other causes of anemia: chronic disease, kidney Assessment/Plan (1) ESRD (end stage renal disease) on dialysis Assessment/Plan: RENAL CONSULT FOLLOW RENAL FUNCTION Code(s): N18.6 - END STAGE RENAL DISEASE Z99.2 - DEPENDENCE ON RENAL DIALYSIS (2) Pneumonia Assessment/Plan: IV ABX ID CONSULT Code(s): J18.9 - PNEUMONIA, UNSPECIFIED ORGANISM (3) Respiratory failure Assessment/Plan: VENT SETTING PER PULM FOLLOW SAT Code(s): J96.90 - RESPIRATORY FAILURE, UNSP, UNSP W HYPOXIA OR HYPERCAPNIA (4) Anemia Assessment/Plan: S/P pRBC F/U HGB Code(s): D64.9 - ANEMIA, UNSPECIFIED Qualifiers: Other causes of anemia: chronic disease, kidney (5) Fever Assessment/Plan: IV ABX CULTURES NEG RPT LACTIC ACID Code(s): R50.9 - FEVER, UNSPECIFIED (6) Dysphagia Assessment/Plan: PEG THIS WEEK D/W PCP -> CLEARED FOR SURGERY APPRECIATE SURG NOTE Code(s): R13.10 - DYSPHAGIA, UNSPECIFIED [employer]ST[facility] ROSS
[2016-11-21] MEDS: PIPERACILLIN/TAZOB 2.25 GM 50 ML IVPB SCH ×2 (01:35→09:23)
[2016-11-21] MEDS ORDERED: EPOETIN ALFA 10,000 UNIT/1 ML VIAL IVPUSH ONE (08:00)
[2016-11-21 08:26] LABS: BASOPHIL 0.5 % (0-2.0); MCH 31.9 pg (25.7-33.7); MCHC 32.2 g/dl (32.0-36.0); MEAN CELL VOLUME 99.2 fl (80-96); MEAN PLT VOLUME 9.2 fl (7.5-11.1); NEUTROPHILS 78.4 % (42.8-82.8); PLATELET COUNT 126 K/MM3 (134-434); RDW 22.9 % (11.6-15.6)
[2016-11-21] MEDS: AMINO ACIDS/PROTEIN HYDROLYS 30 ML LIQUID.PKT PO SCH ×2 (09:16→16:52)
[2016-11-21] MEDS: NAPH,MB-DB/K PH,MBDB POWDER PACKET PO SCH (09:16)
[2016-11-21 09:17] LABS: ALBUMIN 1.4 g/dl (3.4-5.0); BILIRUBIN,TOTAL 0.9 mg/dL (0.2-1.0); CREATININE 3.5 mg/dL (0.55-1.02)
[2016-11-21] MEDS: BACITRACIN 30 GM TUBE TOPICAL OINTMENT TP SCH (09:23)
[2016-11-21] MEDS: CALCITRIOL 1 MCG/ML BOT NGT SCH (09:23)
[2016-11-21] MEDS: PANTOPRAZOLE SODIUM 40 MG/100 ML PRE-DOCKED IVPB SCH (09:23)
[2016-11-21] MEDS: levETIRAcetam 500 MG/5 ML INJECTION VIAL IVPB SCH ×2 (09:23→22:02)
--- NOTE | 2016-11-21 12:28 | PN ---
Progress Note, Physician History of Present Illness: pulmonary alert,on vent support ac mode nad - Current Medication List Current Medications: Active Medications Acetaminophen (Ofirmev Injection -) 700 mg IVPB Q6H PRN PRN Reason: FEVER Last Admin: 11/19/16 04:07 Dose: 700 mg Acetaminophen (Tylenol Oral Solution -) 650 mg NGT Q6H PRN PRN Reason: FEVER OR PAIN Last Admin: 11/16/16 09:36 Dose: 650 mg Amino Acids (Prosource No Carb Liquid Pkt) 30 ml PO BID@0800,1730 [facility] Last Admin: 11/21/16 09:16 Dose: Not Given Bacitracin (Bacitracin -) 1 applic TP DAILY [facility] Last Admin: 11/21/16 09:23 Dose: 1 applic Calcitriol (Rocaltrol Liquid -) 0.25 mcg NGT DAILY [facility] Last Admin: 11/21/16 09:23 Dose: Not Given Piperacillin Sod/Tazobactam Sod (Zosyn 2.25gm Ivpb (Pre-Docked)) 50 mls @ 100 mls/hr IVPB Q8H-IV MARIE PRN Reason: Protocol Last Admin: 11/21/16 09:23 Dose: 100 mls/hr Amino Acids (Clinimix -) 1,000 mls @ 40 mls/hr IV ASDIR [facility] Last Admin: 11/20/16 13:31 Dose: 40 mls/hr Levetiracetam (Keppra Injection -) 500 mg IVPB BID [facility] Last Admin: 11/21/16 09:23 Dose: 500 mg Ondansetron HCl (Zofran Injection) 4 mg IVPB Q4H PRN PRN Reason: NAUSEA AND/OR VOMITING Pantoprazole Sodium (Protonix 40mg Ivpb (Pre-Docked)) 40 mg IVPB DAILY [facility] Last Admin: 11/21/16 09:23 Dose: 40 mg Potassium Phos/Sodium Phos (Phos-Nak Packet -) 1 packet PO DAILY [facility] Last Admin: 11/21/16 09:16 Dose: Not Given - Objective Vital Signs: Vital Signs Temperature 97.9 F 11/21/16 10:00 Pulse Rate 90 11/21/16 11:26 Respiratory Rate 20 11/21/16 10:27 Blood Pressure 133/64 11/21/16 10:25 O2 Sat by Pulse Oximetry (%) 99 11/21/16 11:26 Constitutional: Yes: Well Nourished, Calm Eyes: Yes: WNL HENT: Yes: WNL Neck: Yes: Supple (trach) Cardiovascular: Yes: Regular Rate and Rhythm, S1, S2 Respiratory: Yes: Rhonchi Gastrointestinal: Yes: Normal Bowel Sounds, Soft Extremities: Yes: WNL Edema: Yes Labs: CBC, BMP 11/21/16 07:10 11/21/16 07:10 INR, PTT INR 1.33 (0.82-1.09) H 11/14/16 06:15 Fibrinogen 279.0 mg/dL (238-498) 11/14/16 06:15 Problem List - Problems (1) Anemia Code(s): D64.9 - ANEMIA, UNSPECIFIED Qualifiers: Other causes of anemia: chronic disease, kidney (2) Cardiopulmonary arrest Code(s): I46.9 - CARDIAC ARREST, CAUSE UNSPECIFIED (3) DVT (deep venous thrombosis) Code(s): I82.409 - ACUTE EMBOLISM AND THOMBOS UNSP DEEP VN UNSP LOWER EXTREMITY (4) Dysphagia Code(s): R13.10 - DYSPHAGIA, UNSPECIFIED (5) ESRD (end stage renal disease) on dialysis Code(s): N18.6 - END STAGE RENAL DISEASE Z99.2 - DEPENDENCE ON RENAL DIALYSIS (6) Pneumonia Code(s): J18.9 - PNEUMONIA, UNSPECIFIED ORGANISM (7) Respiratory failure Code(s): J96.90 - RESPIRATORY FAILURE, UNSP, UNSP W HYPOXIA OR HYPERCAPNIA (8) Shock Code(s): R57.9 - SHOCK, UNSPECIFIED Assessment/Plan ASSESSMENT AND PLAN: S/P Trach due to failure to wean s/p PEA Cardiopulmonary Arrest s/p Hypothermia Protocol Pneumonia S/P Septic Shock Pulmonary HTN Lactic Acidosis resolved ESRD on HD RLE distal DVT GI Bleed Thrombocytopenia Fever - HD per renal - empiric antiepileptics - spontaneous breathing trials as tolerated - DVT/GI prophylaxis - monitor lytes,h+h - transfuse prn - antibiotics as per claire ANGELA
--- NOTE | 2016-11-21 12:55 | PN ---
Progress Note, Physician History of Present Illness: Lethargic No acute distress Breathing non labored Temps down - Current Medication List Current Medications: Active Medications Acetaminophen (Ofirmev Injection -) 700 mg IVPB Q6H PRN PRN Reason: FEVER Last Admin: 11/19/16 04:07 Dose: 700 mg Acetaminophen (Tylenol Oral Solution -) 650 mg NGT Q6H PRN PRN Reason: FEVER OR PAIN Last Admin: 11/16/16 09:36 Dose: 650 mg Amino Acids (Prosource No Carb Liquid Pkt) 30 ml PO BID@0800,1730 [facility] Last Admin: 11/21/16 09:16 Dose: Not Given Bacitracin (Bacitracin -) 1 applic TP DAILY [facility] Last Admin: 11/21/16 09:23 Dose: 1 applic Calcitriol (Rocaltrol Liquid -) 0.25 mcg NGT DAILY [facility] Last Admin: 11/21/16 09:23 Dose: Not Given Piperacillin Sod/Tazobactam Sod (Zosyn 2.25gm Ivpb (Pre-Docked)) 50 mls @ 100 mls/hr IVPB Q8H-IV MARIE PRN Reason: Protocol Last Admin: 11/21/16 09:23 Dose: 100 mls/hr Amino Acids (Clinimix -) 1,000 mls @ 40 mls/hr IV ASDIR [facility] Last Admin: 11/20/16 13:31 Dose: 40 mls/hr Levetiracetam (Keppra Injection -) 500 mg IVPB BID [facility] Last Admin: 11/21/16 09:23 Dose: 500 mg Ondansetron HCl (Zofran Injection) 4 mg IVPB Q4H PRN PRN Reason: NAUSEA AND/OR VOMITING Pantoprazole Sodium (Protonix 40mg Ivpb (Pre-Docked)) 40 mg IVPB DAILY [facility] Last Admin: 11/21/16 09:23 Dose: 40 mg Potassium Phos/Sodium Phos (Phos-Nak Packet -) 1 packet PO DAILY [facility] Last Admin: 11/21/16 09:16 Dose: Not Given - Objective Vital Signs: Vital Signs Temperature 97.9 F 11/21/16 10:00 Pulse Rate 90 11/21/16 11:26 Respiratory Rate 20 11/21/16 10:27 Blood Pressure 133/64 11/21/16 10:25 O2 Sat by Pulse Oximetry (%) 99 11/21/16 11:26 Constitutional: Yes: No Distress, Cachectic Eyes: Yes: Conjunctiva Clear Cardiovascular: Yes: Regular Rate and Rhythm, S1, S2 Respiratory: Yes: Diminished Gastrointestinal: Yes: Normal Bowel Sounds, Soft. No: Tenderness Edema: Yes Labs: CBC, BMP 11/21/16 07:10 11/21/16 07:10 INR, PTT INR 1.33 (0.82-1.09) H 11/14/16 06:15 Fibrinogen 279.0 mg/dL (238-498) 11/14/16 06:15 Assessment/Plan S/P cardiopulmonary arrest/ respiratory failure Recurrent fever- temps down ESRD Cirrhosis vancomycin allergy Day # 6 zosyn D/C antibiotics, observe off
--- NOTE | 2016-11-21 14:07 | PN ---
Progress Note, Physician History of Present Illness: Pt seen and examined at bedside. She tolerated HD today. - Current Medication List Current Medications: Active Medications Acetaminophen (Ofirmev Injection -) 700 mg IVPB Q6H PRN PRN Reason: FEVER Last Admin: 11/19/16 04:07 Dose: 700 mg Acetaminophen (Tylenol Oral Solution -) 650 mg NGT Q6H PRN PRN Reason: FEVER OR PAIN Last Admin: 11/16/16 09:36 Dose: 650 mg Amino Acids (Prosource No Carb Liquid Pkt) 30 ml PO BID@0800,1730 [facility] Last Admin: 11/21/16 09:16 Dose: Not Given Bacitracin (Bacitracin -) 1 applic TP DAILY [facility] Last Admin: 11/21/16 09:23 Dose: 1 applic Calcitriol (Rocaltrol Liquid -) 0.25 mcg NGT DAILY [facility] Last Admin: 11/21/16 09:23 Dose: Not Given Amino Acids (Clinimix -) 1,000 mls @ 40 mls/hr IV ASDIR [facility] Last Admin: 11/20/16 13:31 Dose: 40 mls/hr Levetiracetam (Keppra Injection -) 500 mg IVPB BID [facility] Last Admin: 11/21/16 09:23 Dose: 500 mg Ondansetron HCl (Zofran Injection) 4 mg IVPB Q4H PRN PRN Reason: NAUSEA AND/OR VOMITING Pantoprazole Sodium (Protonix 40mg Ivpb (Pre-Docked)) 40 mg IVPB DAILY [facility] Last Admin: 11/21/16 09:23 Dose: 40 mg Potassium Phos/Sodium Phos (Phos-Nak Packet -) 1 packet PO DAILY [facility] Last Admin: 11/21/16 09:16 Dose: Not Given - Objective Vital Signs: Vital Signs Temperature 97.9 F 11/21/16 10:00 Pulse Rate 90 11/21/16 11:26 Respiratory Rate 20 11/21/16 10:27 Blood Pressure 133/64 11/21/16 10:25 O2 Sat by Pulse Oximetry (%) 99 11/21/16 11:26 Constitutional: Yes: Calm Eyes: Yes: Conjunctiva Clear HENT: Yes: Atraumatic Neck: Yes: Other (trache) Cardiovascular: Yes: S1, S2 Respiratory: Yes: Mechanically Ventilated Gastrointestinal: Yes: Soft Genitourinary: Yes: Incontinence Musculoskeletal: Yes: Muscle Weakness Edema: Yes Neurological: Yes: Other (drowsy) Labs: CBC, BMP 11/21/16 07:10 11/21/16 07:10 INR, PTT INR 1.33 (0.82-1.09) H 11/14/16 06:15 Fibrinogen 279.0 mg/dL (238-498) 11/14/16 06:15 Problem List - Problems (1) Cardiopulmonary arrest Code(s): I46.9 - CARDIAC ARREST, CAUSE UNSPECIFIED (2) DVT (deep venous thrombosis) Code(s): I82.409 - ACUTE EMBOLISM AND THOMBOS UNSP DEEP VN UNSP LOWER EXTREMITY (3) ESRD (end stage renal disease) on dialysis Code(s): N18.6 - END STAGE RENAL DISEASE Z99.2 - DEPENDENCE ON RENAL DIALYSIS (4) HCV (hepatitis C virus) Code(s): B19.20 - UNSPECIFIED VIRAL HEPATITIS C WITHOUT HEPATIC COMA (5) Respiratory failure Code(s): J96.90 - RESPIRATORY FAILURE, UNSP, UNSP W HYPOXIA OR HYPERCAPNIA Assessment/Plan Current Medications Generic Name Dose Route Start Last Admin Trade Name Freq PRN Reason Stop Dose Admin Acetaminophen 700 mg 11/15/16 16:31 11/19/16 04:07 Ofirmev Injection - IVPB 700 mg Q6H PRN Administration FEVER Acetaminophen 650 mg 11/15/16 16:31 11/16/16 09:36 Tylenol Oral Solution - NGT 650 mg Q6H PRN Administration FEVER OR PAIN Amino Acids 30 ml 11/15/16 17:30 11/21/16 09:16 Prosource No Carb Liquid Pkt PO Not Given BID@0800,1730 [facility] Bacitracin 1 applic 11/16/16 10:00 11/21/16 09:23 Bacitracin - TP 1 applic DAILY [facility] Administration Calcitriol 0.25 mcg 11/16/16 10:00 11/21/16 09:23 Rocaltrol Liquid - NGT Not Given DAILY [facility]IE Amino Acids 1,000 mls @ 40 mls/hr 11/18/16 18:30 11/20/16 13:31 Clinimix - IV 40 mls/hr ASDIR MARIE Administration Levetiracetam 500 mg 11/17/16 00:45 11/21/16 09:23 Keppra Injection - IVPB 500 mg BID MARIE Administration Ondansetron HCl 4 mg 11/17/16 22:48 Zofran Injection IVPB Q4H PRN NAUSEA AND/OR VOMITING Pantoprazole Sodium 40 mg 11/17/16 10:00 11/21/16 09:23 Protonix 40mg Ivpb (Pre-Docked) IVPB 40 mg DAILY [facility] Administration Potassium Phos/Sodium Phos 1 packet 11/16/16 10:00 11/21/16 09:16 Phos-Nak Packet - PO Not Given DAILY [facility]IE 11/13/16 cultures no growth to date 11/16/16 blood cultures negative to date Impression 1. ESRD 2. s/p cardiopulmonary arrest 3. acute respiratory failure 4. Pneumonia 5. DVT of right leg 6. S/P Seizure following the arrest 7. Right renal complex cyst > 5cms in diameter 8. Anemia 9. Thrombocytopenia 10. H/O HCV 11. GI bleed Plan - pt tolerated HD - cont with clinimix for now - vent support - pulmonary for weaning - possible peg - epogen for anemia - pt has antibodies and can not be transfused on HD - discussed with nurse Dr Espino
--- NOTE | 2016-11-21 15:36 | PN ---
Progress Note, Physician Chief Complaint: PATIENT ON VENT TRACHEOSTOMY S/P CARDIAC ARREST, ESRD ON HD NEEDS ACCESS FOR FEEDINGS CAN NOT CONTINUE NGT. BECAUSE OF HER ABDOMINAL ASCITES JTUBE PREFERRED OVER GTUBE PLACEMENT. AGREEING TO PROCEDURE. - Current Medication List Current Medications: Active Medications Acetaminophen (Ofirmev Injection -) 700 mg IVPB Q6H PRN PRN Reason: FEVER Last Admin: 11/19/16 04:07 Dose: 700 mg Acetaminophen (Tylenol Oral Solution -) 650 mg NGT Q6H PRN PRN Reason: FEVER OR PAIN Last Admin: 11/16/16 09:36 Dose: 650 mg Amino Acids (Prosource No Carb Liquid Pkt) 30 ml PO BID@0800,1730 [facility] Last Admin: 11/21/16 09:16 Dose: Not Given Bacitracin (Bacitracin -) 1 applic TP DAILY [facility] Last Admin: 11/21/16 09:23 Dose: 1 applic Calcitriol (Rocaltrol Liquid -) 0.25 mcg NGT DAILY [facility] Last Admin: 11/21/16 09:23 Dose: Not Given Amino Acids (Clinimix -) 1,000 mls @ 40 mls/hr IV ASDIR [facility] Last Admin: 11/20/16 13:31 Dose: 40 mls/hr Levetiracetam (Keppra Injection -) 500 mg IVPB BID [facility] Last Admin: 11/21/16 09:23 Dose: 500 mg Ondansetron HCl (Zofran Injection) 4 mg IVPB Q4H PRN PRN Reason: NAUSEA AND/OR VOMITING Pantoprazole Sodium (Protonix 40mg Ivpb (Pre-Docked)) 40 mg IVPB DAILY [facility] Last Admin: 11/21/16 09:23 Dose: 40 mg Potassium Phos/Sodium Phos (Phos-Nak Packet -) 1 packet PO DAILY [facility] Last Admin: 11/21/16 09:16 Dose: Not Given - Objective Vital Signs: Vital Signs Temperature 99.4 F 11/21/16 14:43 Pulse Rate 104 H 11/21/16 14:43 Respiratory Rate 17 11/21/16 14:43 Blood Pressure 119/64 11/21/16 14:43 O2 Sat by Pulse Oximetry (%) 99 11/21/16 11:26 Constitutional: Yes: Moderate Distress Eyes: Yes: WNL HENT: Yes: WNL Neck: Yes: WNL Cardiovascular: Yes: WNL Respiratory: Yes: Mechanically Ventilated Gastrointestinal: Yes: WNL Genitourinary: Yes: Incontinence Musculoskeletal: Yes: Muscle Weakness Extremities: Yes: Other Edema: Yes Peripheral Pulses WNL: Yes Integumentary: Yes: Pressure Ulcer, Rash, Skin Tear Wound/Incision: Yes: Open to air, Excoriated, Unapproximated Neurological: Yes: Pre-Existing Deficit, Weakness ...Motor Strength: LUE (GRAFT REDDEDED ERYTHEMA) Psychiatric: Yes: Other Labs: CBC, BMP 11/21/16 07:10 11/21/16 07:10 INR, PTT INR 1.33 (0.82-1.09) H 11/14/16 06:15 Fibrinogen 279.0 mg/dL (238-498) 11/14/16 06:15 Problem List - Problems (1) Cardiopulmonary arrest Code(s): I46.9 - CARDIAC ARREST, CAUSE UNSPECIFIED (2) DVT (deep venous thrombosis) Code(s): I82.409 - ACUTE EMBOLISM AND THOMBOS UNSP DEEP VN UNSP LOWER EXTREMITY (3) ESRD (end stage renal disease) on dialysis Code(s): N18.6 - END STAGE RENAL DISEASE Z99.2 - DEPENDENCE ON RENAL DIALYSIS (4) HCV (hepatitis C virus) Code(s): B19.20 - UNSPECIFIED VIRAL HEPATITIS C WITHOUT HEPATIC COMA (5) Metabolic encephalopathy Code(s): G93.41 - METABOLIC ENCEPHALOPATHY (6) Pneumonia Code(s): J18.9 - PNEUMONIA, UNSPECIFIED ORGANISM (7) Respiratory failure Code(s): J96.90 - RESPIRATORY FAILURE, UNSP, UNSP W HYPOXIA OR HYPERCAPNIA (8) Dysphagia Code(s): R13.10 - DYSPHAGIA, UNSPECIFIED Assessment/Plan PERMA CATH NOT PLACED, LEFT ARM GRAFT BEING USED JTUBE POSSIBLY TO BE PLACED TOMORROW RISKS AND BENEFITS REVIEWED. AT THIS TIME BECAUSE OF THE RISK OF BLEEDING WITH ABDOMINAL ASCITES A G-TUBE IS NOT RECOMMENDED AND A J-TUBE WOULD BE A BETETR PROCEDURE. PATIENT'S UNDERSTANDS THE RISK BUT AT THIS TIME THE BENEFIT OUTWEIGHS THE RISK. MEDICALLY OPTIMIZED FOR JTUBE PLACEMENT.
--- NOTE | 2016-11-21 16:32 | SPA.PREOP ---
- PRE-OP NOTE Dx: failure to thrive Planned Procedure: feeding jjeuosotmy tube Surgeon: Dr. Canales Consent: to be obtained Last Vital Signs Temp Pulse Resp BP Pulse Ox 99.4 F 104 H 17 119/64 99 11/21/16 14:43 11/21/16 14:43 11/21/16 14:43 11/21/16 14:43 11/21/16 11:26 Lab Results WBC 12.0 K/mm3 (4.0-10.0) H 11/21/16 07:10 RBC 2.50 M/mm3 (3.60-5.2) L 11/21/16 07:10 Hgb 8.0 GM/dL (10.7-15.3) L 11/21/16 07:10 Hct 24.8 % (32.4-45.2) L 11/21/16 07:10 MCV 99.2 fl (80-96) H 11/21/16 07:10 MCHC 32.2 g/dl (32.0-36.0) 11/21/16 07:10 RDW 22.9 % (11.6-15.6) H 11/21/16 07:10 Plt Count 126 K/MM3 (134-434) L 11/21/16 07:10 Sodium 135 mmol/L (136-145) L 11/21/16 07:10 Potassium 3.3 mmol/L (3.5-5.1) L 11/21/16 07:10 Chloride 99 mmol/L (98-107) 11/21/16 07:10 Carbon Dioxide 24 mmol/L (21-32) 11/21/16 07:10 Anion Gap 12 (8-16) 11/21/16 07:10 BUN 55 mg/dL (7-18) H D 11/21/16 07:10 Creatinine 3.5 mg/dL (0.55-1.02) H 11/21/16 07:10 Random Glucose 80 mg/dL (74-106) 11/21/16 07:10 Calcium 8.0 mg/dL (8.5-10.1) L 11/21/16 07:10 Blood Type B POSITIVE 11/18/16 15:00 Antibody Screen Positive H 11/18/16 15:00 INR 1.33 (0.82-1.09) H 11/14/16 06:15 Laboratory Tests 11/14/16 11/21/16 11/21/16 06:15 07:10 07:10 INR 1.33 H PTT (Actin FS) 36.3 H Sodium 135 L Potassium 3.3 L Chloride 99 Carbon Dioxide 24 Anion Gap 12 BUN 55 H D Creatinine 3.5 H Creat Clearance w eGFR 12.60 Random Glucose 80 Lactic Acid 1.459 Calcium 8.0 L - ASSESSMENT/PLAN 1.Continue npo 2. Medical optimization / clearance in chart D/w Dr. Canales Visit type - Case Type Case Type: ED Admission - Emergency Emergency Visit: Yes ED Registration Date: 10/22/16 Care time: The patient presented to the Emergency Department on the above date and was hospitalized for further evaluation of their emergent condition. - New patient This patient is new to me today: No - Critical Care Critical Care patient: No
[2016-11-21] MEDS: AMINO ACIDS 4.25%/D5W 1,000 ML IV SCH ×3 (17:04→22:02)
[2016-11-22] MEDS: BACITRACIN 30 GM TUBE TOPICAL OINTMENT TP SCH (10:28)
[2016-11-22] MEDS: levETIRAcetam 500 MG/5 ML INJECTION VIAL IVPB SCH (10:29)
[2016-11-22] MEDS: PANTOPRAZOLE SODIUM 40 MG/100 ML PRE-DOCKED IVPB SCH (10:29)
[2016-11-22] MEDS: NAPH,MB-DB/K PH,MBDB POWDER PACKET PO SCH (10:32)
[2016-11-22] MEDS: CALCITRIOL 1 MCG/ML BOT NGT SCH (10:32)
[2016-11-22] MEDS: AMINO ACIDS/PROTEIN HYDROLYS 30 ML LIQUID.PKT PO SCH ×2 (10:32→18:38)
--- NOTE | 2016-11-22 11:05 | PN ---
Progress Note, Physician Chief Complaint: ASLEEP TRACHEOSTOMY IN PLACE ON VENT SCHEDULED FOR J-TUBE SURGERY TODAY - Current Medication List Current Medications: Active Medications Acetaminophen (Ofirmev Injection -) 700 mg IVPB Q6H PRN PRN Reason: FEVER Last Admin: 11/19/16 04:07 Dose: 700 mg Acetaminophen (Tylenol Oral Solution -) 650 mg NGT Q6H PRN PRN Reason: FEVER OR PAIN Last Admin: 11/16/16 09:36 Dose: 650 mg Amino Acids (Prosource No Carb Liquid Pkt) 30 ml PO BID@0800,1730 [facility] Last Admin: 11/22/16 10:32 Dose: Not Given Bacitracin (Bacitracin -) 1 applic TP DAILY [facility] Last Admin: 11/22/16 10:28 Dose: 1 applic Calcitriol (Rocaltrol Liquid -) 0.25 mcg NGT DAILY [facility] Last Admin: 11/22/16 10:32 Dose: Not Given Amino Acids (Clinimix -) 1,000 mls @ 40 mls/hr IV ASDIR [facility] Last Admin: 11/21/16 22:02 Dose: Not Given Levetiracetam (Keppra Injection -) 500 mg IVPB BID [facility] Last Admin: 11/22/16 10:29 Dose: 500 mg Ondansetron HCl (Zofran Injection) 4 mg IVPB Q4H PRN PRN Reason: NAUSEA AND/OR VOMITING Pantoprazole Sodium (Protonix 40mg Ivpb (Pre-Docked)) 40 mg IVPB DAILY [facility] Last Admin: 11/22/16 10:29 Dose: 40 mg Potassium Phos/Sodium Phos (Phos-Nak Packet -) 1 packet PO DAILY [facility] Last Admin: 11/22/16 10:32 Dose: Not Given - Objective Vital Signs: Vital Signs Temperature 99.1 F 11/22/16 10:00 Pulse Rate 84 11/22/16 10:00 Respiratory Rate 15 11/22/16 10:00 Blood Pressure 134/52 11/22/16 10:00 O2 Sat by Pulse Oximetry (%) 100 11/21/16 22:00 Constitutional: Yes: No Distress Eyes: Yes: WNL HENT: Yes: WNL Neck: Yes: WNL Cardiovascular: Yes: WNL Respiratory: Yes: Mechanically Ventilated Gastrointestinal: Yes: WNL Genitourinary: Yes: Incontinence Musculoskeletal: Yes: Muscle Weakness Extremities: Yes: Other Edema: Yes Peripheral Pulses WNL: Yes Integumentary: Yes: Rash, Skin Tear, Venous Stasis Changes Wound/Incision: Yes: Dressing Dry and Intact Neurological: Yes: Pre-Existing Deficit, Weakness ...Motor Strength: LLE, RLE Labs: CBC, BMP 11/21/16 07:10 11/21/16 07:10 INR, PTT INR 1.33 (0.82-1.09) H 11/14/16 06:15 Fibrinogen 279.0 mg/dL (238-498) 11/14/16 06:15 Problem List - Problems (1) Cardiopulmonary arrest Code(s): I46.9 - CARDIAC ARREST, CAUSE UNSPECIFIED (2) DVT (deep venous thrombosis) Code(s): I82.409 - ACUTE EMBOLISM AND THOMBOS UNSP DEEP VN UNSP LOWER EXTREMITY (3) ESRD (end stage renal disease) on dialysis Code(s): N18.6 - END STAGE RENAL DISEASE Z99.2 - DEPENDENCE ON RENAL DIALYSIS (4) HCV (hepatitis C virus) Code(s): B19.20 - UNSPECIFIED VIRAL HEPATITIS C WITHOUT HEPATIC COMA (5) Metabolic encephalopathy Code(s): G93.41 - METABOLIC ENCEPHALOPATHY (6) Pneumonia Code(s): J18.9 - PNEUMONIA, UNSPECIFIED ORGANISM (7) Respiratory failure Code(s): J96.90 - RESPIRATORY FAILURE, UNSP, UNSP W HYPOXIA OR HYPERCAPNIA (8) Dysphagia Code(s): R13.10 - DYSPHAGIA, UNSPECIFIED Assessment/Plan PERMA CATH NOT PLACED, LEFT ARM GRAFT BEING USED JTUBE POSSIBLY TO BE PLACED TOMORROW RISKS AND BENEFITS REVIEWED. AT THIS TIME BECAUSE OF THE RISK OF BLEEDING WITH ABDOMINAL ASCITES A G-TUBE IS NOT RECOMMENDED AND A J-TUBE WOULD BE A BETETR PROCEDURE. PATIENT'S UNDERSTANDS THE RISK BUT AT THIS TIME THE BENEFIT OUTWEIGHS THE RISK. MEDICALLY OPTIMIZED FOR JTUBE PLACEMENT.
--- NOTE | 2016-11-22 13:27 | PN ---
Progress Note, Physician History of Present Illness: pulmonary no change,awake ,-resp distress - Current Medication List Current Medications: Active Medications Acetaminophen (Ofirmev Injection -) 700 mg IVPB Q6H PRN PRN Reason: FEVER Last Admin: 11/19/16 04:07 Dose: 700 mg Acetaminophen (Tylenol Oral Solution -) 650 mg NGT Q6H PRN PRN Reason: FEVER OR PAIN Last Admin: 11/16/16 09:36 Dose: 650 mg Amino Acids (Prosource No Carb Liquid Pkt) 30 ml PO BID@0800,1730 [facility] Last Admin: 11/22/16 10:32 Dose: Not Given Bacitracin (Bacitracin -) 1 applic TP DAILY [facility] Last Admin: 11/22/16 10:28 Dose: 1 applic Calcitriol (Rocaltrol Liquid -) 0.25 mcg NGT DAILY [facility] Last Admin: 11/22/16 10:32 Dose: Not Given Amino Acids (Clinimix -) 1,000 mls @ 40 mls/hr IV ASDIR [facility] Last Admin: 11/21/16 22:02 Dose: Not Given Levetiracetam (Keppra Injection -) 500 mg IVPB BID [facility] Last Admin: 11/22/16 10:29 Dose: 500 mg Ondansetron HCl (Zofran Injection) 4 mg IVPB Q4H PRN PRN Reason: NAUSEA AND/OR VOMITING Pantoprazole Sodium (Protonix 40mg Ivpb (Pre-Docked)) 40 mg IVPB DAILY [facility] Last Admin: 11/22/16 10:29 Dose: 40 mg Potassium Phos/Sodium Phos (Phos-Nak Packet -) 1 packet PO DAILY [facility] Last Admin: 11/22/16 10:32 Dose: Not Given - Objective Vital Signs: Vital Signs Temperature 99.1 F 11/22/16 10:00 Pulse Rate 84 11/22/16 10:00 Respiratory Rate 15 11/22/16 10:00 Blood Pressure 134/52 11/22/16 10:00 O2 Sat by Pulse Oximetry (%) 100 11/22/16 09:00 Constitutional: Yes: No Distress, Calm, Thin Eyes: Yes: WNL HENT: Yes: WNL Neck: Yes: Supple (trach) Cardiovascular: Yes: Regular Rate and Rhythm, S1, S2 Respiratory: Yes: Rhonchi (few rhonchi) Gastrointestinal: Yes: Normal Bowel Sounds, Soft Extremities: Yes: WNL Edema: Yes Problem List - Problems (1) Anemia Code(s): D64.9 - ANEMIA, UNSPECIFIED Qualifiers: Other causes of anemia: chronic disease, kidney (2) Cardiopulmonary arrest Code(s): I46.9 - CARDIAC ARREST, CAUSE UNSPECIFIED (3) DVT (deep venous thrombosis) Code(s): I82.409 - ACUTE EMBOLISM AND THOMBOS UNSP DEEP VN UNSP LOWER EXTREMITY (4) Dysphagia Code(s): R13.10 - DYSPHAGIA, UNSPECIFIED (5) ESRD (end stage renal disease) on dialysis Code(s): N18.6 - END STAGE RENAL DISEASE Z99.2 - DEPENDENCE ON RENAL DIALYSIS (6) Pneumonia Code(s): J18.9 - PNEUMONIA, UNSPECIFIED ORGANISM (7) Respiratory failure Code(s): J96.90 - RESPIRATORY FAILURE, UNSP, UNSP W HYPOXIA OR HYPERCAPNIA (8) Shock Code(s): R57.9 - SHOCK, UNSPECIFIED Assessment/Plan ASSESSMENT AND PLAN: S/P Trach due to failure to wean s/p PEA Cardiopulmonary Arrest s/p Hypothermia Protocol Pneumonia S/P Septic Shock Pulmonary HTN Lactic Acidosis resolved ESRD on HD RLE distal DVT GI Bleed Thrombocytopenia Fever - HD per renal - J tube - empiric antiepileptics - spontaneous breathing trials as tolerated - DVT/GI prophylaxis - monitor lytes,h+h - transfuse prn DR ANGELA
--- NOTE | 2016-11-22 17:11 | PN ---
Progress Note, Physician History of Present Illness: Pt seen and examined at bedside. She is scheduled for feeding tube tomorrow. is at bedside. - Current Medication List Current Medications: Active Medications Acetaminophen (Ofirmev Injection -) 700 mg IVPB Q6H PRN PRN Reason: FEVER Last Admin: 11/19/16 04:07 Dose: 700 mg Acetaminophen (Tylenol Oral Solution -) 650 mg NGT Q6H PRN PRN Reason: FEVER OR PAIN Last Admin: 11/16/16 09:36 Dose: 650 mg Amino Acids (Prosource No Carb Liquid Pkt) 30 ml PO BID@0800,1730 [facility] Last Admin: 11/22/16 10:32 Dose: Not Given Bacitracin (Bacitracin -) 1 applic TP DAILY [facility] Last Admin: 11/22/16 10:28 Dose: 1 applic Calcitriol (Rocaltrol Liquid -) 0.25 mcg NGT DAILY [facility] Last Admin: 11/22/16 10:32 Dose: Not Given Amino Acids (Clinimix -) 1,000 mls @ 40 mls/hr IV ASDIR [facility] Last Admin: 11/21/16 22:02 Dose: Not Given Levetiracetam (Keppra Injection -) 500 mg IVPB BID [facility] Last Admin: 11/22/16 10:29 Dose: 500 mg Ondansetron HCl (Zofran Injection) 4 mg IVPB Q4H PRN PRN Reason: NAUSEA AND/OR VOMITING Pantoprazole Sodium (Protonix 40mg Ivpb (Pre-Docked)) 40 mg IVPB DAILY [facility] Last Admin: 11/22/16 10:29 Dose: 40 mg Potassium Phos/Sodium Phos (Phos-Nak Packet -) 1 packet PO DAILY [facility] Last Admin: 11/22/16 10:32 Dose: Not Given - Objective Vital Signs: Vital Signs Temperature 99.4 F 11/22/16 14:20 Pulse Rate 85 11/22/16 14:20 Respiratory Rate 18 11/22/16 14:20 Blood Pressure 125/53 11/22/16 14:20 O2 Sat by Pulse Oximetry (%) 100 11/22/16 09:00 Constitutional: Yes: Calm Eyes: Yes: Conjunctiva Clear Neck: Yes: Other (trache) Cardiovascular: Yes: S1, S2 Respiratory: Yes: Mechanically Ventilated Gastrointestinal: Yes: Soft Genitourinary: Yes: Incontinence Musculoskeletal: Yes: Muscle Weakness Edema: Yes Labs: CBC, BMP 11/21/16 07:10 11/21/16 07:10 INR, PTT INR 1.33 (0.82-1.09) H 11/14/16 06:15 Fibrinogen 279.0 mg/dL (238-498) 11/14/16 06:15 Problem List - Problems (1) Cardiopulmonary arrest Code(s): I46.9 - CARDIAC ARREST, CAUSE UNSPECIFIED (2) DVT (deep venous thrombosis) Code(s): I82.409 - ACUTE EMBOLISM AND THOMBOS UNSP DEEP VN UNSP LOWER EXTREMITY (3) ESRD (end stage renal disease) on dialysis Code(s): N18.6 - END STAGE RENAL DISEASE Z99.2 - DEPENDENCE ON RENAL DIALYSIS (4) HCV (hepatitis C virus) Code(s): B19.20 - UNSPECIFIED VIRAL HEPATITIS C WITHOUT HEPATIC COMA (5) Respiratory failure Code(s): J96.90 - RESPIRATORY FAILURE, UNSP, UNSP W HYPOXIA OR HYPERCAPNIA Assessment/Plan Current Medications Generic Name Dose Route Start Last Admin Trade Name Freq PRN Reason Stop Dose Admin Acetaminophen 700 mg 11/15/16 16:31 11/19/16 04:07 Ofirmev Injection - IVPB 700 mg Q6H PRN Administration FEVER Acetaminophen 650 mg 11/15/16 16:31 11/16/16 09:36 Tylenol Oral Solution - NGT 650 mg Q6H PRN Administration FEVER OR PAIN Amino Acids 30 ml 11/15/16 17:30 11/22/16 10:32 Prosource No Carb Liquid Pkt PO Not Given BID@0800,1730 [facility] Bacitracin 1 applic 11/16/16 10:00 11/22/16 10:28 Bacitracin - TP 1 applic DAILY [facility] Administration Calcitriol 0.25 mcg 11/16/16 10:00 11/22/16 10:32 Rocaltrol Liquid - NGT Not Given DAILY [facility]IE Amino Acids 1,000 mls @ 40 mls/hr 11/18/16 18:30 11/21/16 22:02 Clinimix - IV Not Given ASDIR MARIE Levetiracetam 500 mg 11/17/16 00:45 11/22/16 10:29 Keppra Injection - IVPB 500 mg BID MARIE Administration Ondansetron HCl 4 mg 11/17/16 22:48 Zofran Injection IVPB Q4H PRN NAUSEA AND/OR VOMITING Pantoprazole Sodium 40 mg 11/17/16 10:00 11/22/16 10:29 Protonix 40mg Ivpb (Pre-Docked) IVPB 40 mg DAILY MARIE Administration Potassium Phos/Sodium Phos 1 packet 11/16/16 10:00 11/22/16 10:32 Phos-Nak Packet - PO Not Given DAILY MARIE 11/13/16 cultures no growth to date 11/16/16 blood cultures negative to date Impression 1. ESRD 2. s/p cardiopulmonary arrest 3. acute respiratory failure 4. Pneumonia 5. DVT of right leg 6. S/P Seizure following the arrest 7. Right renal complex cyst > 5cms in diameter 8. Anemia 9. Thrombocytopenia 10. H/O HCV 11. GI bleed Plan - will arrange for HD tomorrow - pt for feeding tube placement tomorrow - cont clinimix for now - epogen for anemia - vent support - pulmonary for weaning - pt has antibodies and can not be transfused on HD - discussed with nurse Dr Espino
[2016-11-22] MEDS: AMINO ACIDS 4.25%/D5W 1,000 ML IV SCH (18:38)
[2016-11-22] MEDS ORDERED: ceFAZolin SODIUM 1 GM VIAL IVPB ONE (19:10)
[2016-11-22] MEDS ORDERED: ROCURONIUM BROMIDE 50 MG/5 ML VIAL ONE ×2 (19:13→20:59)
[2016-11-22] MEDS ORDERED: PROPOFOL 20 ML ONE (19:16)
[2016-11-22] MEDS ORDERED: LEVOFLOXACIN 500 MG PREMIX BAG IVPB ONE (20:40)
[2016-11-22] MEDS ORDERED: PHENYLEPHRINE HCL 10 MG/1 ML SINGLE DOSE VIAL ONE (21:02)
[2016-11-22] MEDS ORDERED: LEVOFLOXACIN 500 MG IVPB 100 ML IVPB ONE ×2 (21:19→21:52)
[2016-11-22] MEDS ORDERED: DEXAMETHASONE SOD PHOSPHATE 4 MG/1 ML VIAL ONE (21:19)
[2016-11-22] MEDS ORDERED: CALCIUM CHLORIDE 1 GM/10 ML *DISP.SYRIN ONE (21:22)
[2016-11-22] MEDS ORDERED: NEOSTIGMINE METHYLSULFATE 0.5 MG/ML - 10 ML MDV ONE (21:29)
[2016-11-22] MEDS ORDERED: LIDOCAINE HCL 4% TOPICAL SOLN (50 ML/BOTTLE) ONE (21:29)
[2016-11-22] MEDS ORDERED: GLYCOPYRROLATE 0.2 MG/1 ML VIAL ONE (21:29)
--- NOTE | 2016-11-22 21:41 | SURG ---
Surgery Fruit Picker Note Fruit Picker: Nam Ledesma PA-C Date of Service: 11/22/16 Diagnosis: Malnutrition Procedure: Exploratory laparotomy, extensive lysis of adhesions, jejunostomy, small bowel resection I was present for the entirety of the operative procedure. For further detail, please refer to operative report. Visit type - Case Type Case Type: ED Admission
--- NOTE | 2016-11-22 21:50 | OP ---
Operative Note - Note: Operative Date: 11/22/16 Pre-Operative Diagnosis: malnutrition Operation: exploratory laparotomy extensive lysis of adhesions, small bowell resection. feeding jejunostomy Findings: extensiive adhesions Post-Operative Diagnosis: Same as Pre-op Surgeon: Salvador Ignacio Anesthesiologist/MARINE WATER TENDER: Nam Ledesma Anesthesia: General Specimens Removed: small bowel Estimated Blood Loss (mls): 100
[2016-11-22] MEDS ORDERED: ONDANSETRON 4 MG/2 ML VIAL IVPB PRN (22:27)
[2016-11-22] MEDS ORDERED: AMINO ACIDS 4.25%/D5W 1,000 ML IV SCH (22:27)
[2016-11-22] MEDS ORDERED: ACETAMINOPHEN 650 MG/20.3 ML ORAL SOLUTION (CUPS) NGT PRN (22:27)
[2016-11-22] MEDS ORDERED: ACETAMINOPHEN 1000 MG/100 ML VIAL (NON FORMULARY) IVPB PRN (22:27)
[2016-11-22] MEDS ORDERED: PHENYLEPHRINE HCL 20,000 MCG in SODIUM CHLORIDE 248 ML IVPB SCH (23:30)
[2016-11-23] MEDS ORDERED: SODIUM CHLORIDE 500 ML IV STA (00:01)
[2016-11-23] MEDS ORDERED: LACTATED RINGERS SOLUTION 1,000 ML IV SCH (00:30)
--- NOTE | 2016-11-23 00:32 | PROC ---
Central Line Insertion Indication: Poor Venous Access, Sepsis, Vasopressor Risks and Benefits Explained: (Verbal consent from ) Consent on Chart: No Central Line: Triple Lumen Catheter Anesthesia: 1% Lidocaine Sterile Technique: Yes Ultrasound Guided Assistance: Yes Position: Right Internal Jugular Post Insertion: Yes: Bilateral Breath Sounds, Bilateral Chest Expansion, Chest X-Ray Ordered Sterile Dressing Applied: Yes Remarks: Central line place emergently for vasopressor and poor venous access. Call placed to Carlyle Bullock at [phone] for consent, obtained verbally.
[2016-11-23] MEDS: FENTANYL INJECTION 500 MCG in DEXTROSE 5%-WATER - 90 ML IJ SCH ×2 (00:35→10:08)
[2016-11-23] MEDS ORDERED: NOREPINEPHRINE BITARTRATE 4 MG/4 ML ML IV ONE (00:35)
--- NOTE | 2016-11-23 00:43 | CONSULT ---
Consult Consult Specialty:: Pulm/CC - History of Present Illness History of Present Illness: Pt is a 80yr old woman with PMHx of HTN, ESRD on HD (last received 11/22), GIB, anemia, HCV. She was initially admitted on 10/22 post cardiac arrest in the ER with ROSC after ~10 minutes. Pt stay has been complicated by residual anoxic brain injury, respiratory failure requiring trach, sepsis, RLE DVT. Pt with malnutrition and on 11/22 went for feeding jejunostomy placement --> exploratory lap with extensive lysis of adhesions and small bowel resection by Dr. Ignacio. Post op pt required phenylephrine for pressor support and increased o2 requirements. Upon receiving pt in ICU pt tachycardic to 110s, minimally responsive, MAP 50s, hypothermic to 96. IVF, phenylephrine drip started. - History Source History Provided By: Medical Record Limitations to Obtaining History: Clinical Condition - Past Medical History Cardio/Vascular: Yes: Aneurysm, HTN Hepatobiliary: Yes: Hepatitis C Renal/: Yes: Renal Failure Infectious Disease: Yes: Other (HCV) - Past Surgical History Past Surgical History: Yes: AV Fistula/Graft - Alcohol/Substance Use Hx Alcohol Use: No - Smoking History Smoking history: Never smoked - Social History Usual Living Arrangement: Long Term Home Medications - Allergies Allergies/Adverse Reactions: Allergies Allergy/AdvReac Type Severity Reaction Status Date / Time vancomycin Allergy Severe Difficulty Verified 11/16/16 03:11 Breathing - Home Medications Home Medications: Ambulatory Orders Acetaminophen [Tylenol -] 650 mg PO Q6H PRN 10/22/16 Albuterol 2.5/Ipratropium 0.5 [Duoneb -] 1 neb NEB Q4H 10/30/16 Amlodipine Besylate [Norvasc -] 10 mg PO DAILY 10/30/16 Calcium Carbonate/Vitamin D3 [Calcium 600 + Vit D Tablet] 1 tablet PO DAILY 03/10 Carvedilol [Coreg] 25 mg PO BID 10/30/16 Diphenhydramine HCl [Benadryl -] 25 mg PO ONCE 10/30/16 Folic Acid/Vit Bcomp,C [Dialyvite Tablet] 1 each PO DAILY 10/30/16 Loperamide HCl [Imodium -] 2 mg PO Q4H 10/30/16 Jasper-3/Dha/Epa/Fish Oil [Jasper 3 500 Softgel] 1 tablet PO DAILY 10/30/16 Family Disease History - Family Disease History Family History: Unable to Obtain Review of Systems Unable to obtain ROS, reason: xochitl Physical Exam Vital Signs: Vital Signs Period Temp Pulse Resp BP Sys/Hodgson Pulse Ox Last 24 Hr 97.4 F-99.4 F 81-116 12-22 87-139/34-84 88-100 Intake & Output 11/20/16 11/21/16 11/22/16 11/23/16 23:59 23:59 23:59 23:59 Intake Total 1270 1530 1900 Output Total 30 Balance 1270 1530 1870 Weight 114 lb 1 oz 114 lb 1 oz Constitutional: Yes: Mild Distress, Thin Eyes: Yes: Sclera Icterus, Other (bilateral miosis) HENT: Yes: WNL Neck: Yes: Other (tracheostomy on vent) Cardiovascular: Yes: Tachycardia, S1, S2 Respiratory: Yes: Intubated (trach), Mechanically Ventilated, Rhonchi, Tachypnea (low to mid 20s). No: Wheezes Gastrointestinal: Yes: Other (limited exam due to bandage. feeding tube LUQ) ...Rectal Exam: Yes: Deferred Renal/: Yes: Anuria Edema: Yes Edema: LUE: 3+, RUE: Trace, LLE: Trace, RLE: Trace Peripheral Pulses WNL: Yes (+2 bilateral pedal pulses) Integumentary: Yes: Tenting Wound/Incision: Yes: Dressing Dry and Intact Neurological: Yes: Lethargy Labs: Abnormal Lab Results 11/18/16 11/20/16 11/23/16 15:00 13:00 00:47 ABG pCO2 at Pt Temp 31.2 L D ABG pO2 at Pt Temp 416.0 H* ABG HCO3 17.9 L ABG O2 Sat (Measured) 100.0 H* ABG O2 Content 14.0 L ABG Base Excess -6.0 L Hepatitis C Antibody >11.0 H Antibody Screen Positive H Crossmatch See Detail Imaging - Results Chest X-ray: Report Reviewed (per prelim report, rt ij tlc in satisfactory position), Image Reviewed Assessment/Plan Pt is a 80yr old woman with PMHx of HTN, ESRD on HD (last received 11/22), GIB, anemia, HCV. Admitted on 10/22 with cardiac arrest in ER. Course complicated by residual anoxic brain injury, respiratory failure requiring trach, sepsis, RLE DVT. Pt now in the ICU for management of post op care s/p feeding jejunostomy placement --> exploratory lap with extensive lysis of adhesions and small bowel resection and septic shock. Pulm: -Vent support via trach -Fio2 for sat >94% -Chest pt -Nebulizers standing and prn -f/u repeat chest xray and abg ID: Sepsis AEB hypothermia, tachycardia, AMS, hypotension requiring pressors -ID following -f/u repeat cultures -On Flagyl, received intraop Levaquin, continue antibiotics per ID -f/u lactic acid -urban espinoza prn Surgery: s/p ex lap, small bowel resection and jtub for feeding -Dr. Moran following -Wound and post op care per surgery Renal: -Renal following -HD -Monitor electrolytes -Renal dose medication Cardio -Hold antihypertensives -Levophed for MAP 65-75 -f/u enzymes -CVP q2 Neuro -Fentanyl drip for post op pain management -Seizure precautions -Continue antiepileptics Nutrition -Start feed as able Prophylactic -DVT -PPI
[2016-11-23 00:52] LABS: ARTERIAL BLOOD GAS HCO3 17.9 meq/L (22-26); ARTERIAL BLOOD GAS pH 7.38 (7.35-7.45)
[2016-11-23 00:53] LABS: ALLENS TEST POSITIVE; ART PUNCT SITE RIGHT RADIAL; LPM/O2% 100; MECH. VENT. YES; PT. ON O2? YES; TYPE OF O2 MECH VENT
[2016-11-23 00:54] LABS: VENT RATE 15; VT/PRESS 350
[2016-11-23 01:21] LABS: MCH 32.1 pg (25.7-33.7); MCHC 31.6 g/dl (32.0-36.0); MEAN CELL VOLUME 101.3 fl (80-96); MEAN PLT VOLUME 9.3 fl (7.5-11.1); PLATELET COUNT 218 K/MM3 (134-434); RDW 23.4 % (11.6-15.6); WHITE BLOOD COUNT 25.4 K/mm3 (4.0-10.0)
[2016-11-23] MEDS: NOREPINEPHRINE BITARTRATE 16,000 MCG in DEXTROSE 5%-WATER - 484 ML IV SCH (01:35)
[2016-11-23] MEDS ORDERED: ALBUTEROL SO4 0.083% IH SOL 2.5 MG/3 ML VIAL.NEB. NEB PRN (01:39)
[2016-11-23 01:46] LABS: INR 1.95 (0.82-1.09); PROTHROMBIN TIME (PATIENT) 21.8 SEC (9.98-11.88)
[2016-11-23] MEDS: METRONIDAZOLE 500 MG PREMIXED 100 ML IVPB SCH ×3 (01:47→17:19)
[2016-11-23 01:49] LABS: ACTIVATED PTT 48.9 SECONDS (26.9-34.4)
[2016-11-23 01:56] LABS: ALBUMIN 1.2 g/dl (3.4-5.0); ANION GAP 18 (8-16); BILIRUBIN,TOTAL 0.9 mg/dL (0.2-1.0); CALCIUM 8.2 mg/dL (8.5-10.1); CO2 18 mmol/L (21-32); CREATININE 2.8 mg/dL (0.55-1.02); GLUCOSE,RANDOM 82 mg/dL (74-106); MAGNESIUM 1.4 mg/dL (1.8-2.4); PHOSPHOROUS 2.7 mg/dL (2.5-4.9); SGOT/AST 25 U/L (15-37); SGPT/ALT < 6 U/L (12-78); TOT PROT 5.2 g/dl (6.4-8.2)
[2016-11-23 01:58] LABS: ALK PHOS 85 U/L (45-117); TROPONIN I 0.02 ng/ml (0.00-0.05)
[2016-11-23] MEDS ORDERED: METRONIDAZOLE 500 MG PREMIXED 100 ML IVPB SCH (02:00)
[2016-11-23] MEDS ORDERED: LEVOFLOXACIN 500 MG IVPB 100 ML IVPB ONE (02:15)
[2016-11-23] MEDS ORDERED: MAGNESIUM SULF 50% (8.12 MEQ/2 ML-1 GM VIAL) IVPB ONE (04:28)
[2016-11-23] MEDS: ALBUTEROL SO4 2.5/IPRATROPIUM 0.5 INH SOL 3 ML VIAL.NEB. NEB SCH ×3 (06:22→22:37)
[2016-11-23 07:12] LABS: ANISOCYTOSIS 2+
[2016-11-23 07:34] LABS: ARTERIAL BLD GAS O2 SATURATION 98.7 % (90-98.9); ARTERIAL BLOOD GAS BASE EXCESS -9.7 meq/l (-2-2); ARTERIAL BLOOD GAS HCO3 15.2 meq/L (22-26); ARTERIAL BLOOD GAS pH 7.31 (7.35-7.45)
[2016-11-23 07:35] LABS: ALLENS TEST POSITIVE; ART PUNCT SITE RIGHT RADIAL; LPM/O2% 35%; MECH. VENT. Y; PT. ON O2? YES; TYPE OF O2 VENT
[2016-11-23 07:36] LABS: VENT RATE 15; VT/PRESS 350
[2016-11-23] MEDS ORDERED: EPOETIN ALFA 10,000 UNIT/1 ML VIAL IVPUSH ONE ×2 (08:00→17:11)
[2016-11-23] MEDS: AMINO ACIDS/PROTEIN HYDROLYS 30 ML LIQUID.PKT PO SCH ×2 (08:08→16:40)
[2016-11-23] MEDS ORDERED: PT OWN MED DRAWER 7, Y5N ONE (08:13)
[2016-11-23] MEDS: NAPH,MB-DB/K PH,MBDB POWDER PACKET PO SCH (09:04)
[2016-11-23] MEDS: CALCITRIOL 1 MCG/ML BOT NGT SCH (09:05)
[2016-11-23] MEDS: levETIRAcetam 500 MG/5 ML INJECTION VIAL IVPB SCH ×2 (09:28→21:09)
[2016-11-23] MEDS: PANTOPRAZOLE SODIUM 40 MG/100 ML PRE-DOCKED IVPB SCH (09:28)
[2016-11-23] MEDS: BACITRACIN 30 GM TUBE TOPICAL OINTMENT TP SCH (09:28)
--- NOTE | 2016-11-23 09:48 | PN ---
Progress Note, Physician Chief Complaint: pod 31 Jtube placement events and chart reviewed Hypotension/sepsis post op in ICU - Current Medication List Current Medications: Active Medications Acetaminophen (Ofirmev Injection -) 700 mg IVPB Q6H PRN PRN Reason: FEVER Acetaminophen (Tylenol Oral Solution -) 650 mg NGT Q6H PRN PRN Reason: FEVER OR PAIN Albuterol Sulfate (Ventolin 0.083% Nebulizer Soln -) 1 amp NEB Q1H PRN PRN Reason: SHORT OF BREATH/WHEEZING Albuterol/Ipratropium (Duoneb -) 1 amp NEB TIDR MARIE Last Admin: 11/23/16 06:22 Dose: 1 amp Amino Acids (Prosource No Carb Liquid Pkt) 30 ml PO BID@0800,1730 MARIE Last Admin: 11/23/16 08:08 Dose: Not Given Bacitracin (Bacitracin -) 1 applic TP DAILY MARIE Last Admin: 11/23/16 09:28 Dose: 1 applic Calcitriol (Rocaltrol Liquid -) 0.25 mcg NGT DAILY MARIE Last Admin: 11/23/16 09:05 Dose: Not Given Fentanyl (Sublimaze Injection -) 25 mcg IVPUSH [id number] PRN PRN Reason: PAIN Stop: 11/25/16 22:05 Metronidazole (Flagyl 500mg Premixed Ivpb -) 100 mls @ 100 mls/hr IVPB Q8H-IV MARIE Last Admin: 11/23/16 09:04 Dose: 100 mls/hr Amino Acids (Clinimix -) 1,000 mls @ 40 mls/hr IV ASDIR MARIE Last Admin: 11/22/16 22:45 Dose: Not Given Phenylephrine HCl 20,000 mcg/ (Sodium Chloride) 250 mls @ 75 mls/hr IVPB ASDIR MARIE; 100 MCG/MIN PRN Reason: Protocol Last Titration: 11/23/16 08:45 Dose: 15.06 mcg/min Fentanyl 500 mcg/ Dextrose 100 mls @ 10 mls/hr IJ TITR MARIE PRN Reason: 50 MCG/HR Last Admin: 11/23/16 00:35 Dose: 10 mls/hr Norepinephrine Bitartrate 16, (000 mcg/ Dextrose) 500 mls @ 9.37 mls/hr IV TITR MARIE; 5 MCG/MIN PRN Reason: Protocol Last Admin: 11/23/16 01:35 Dose: 9.37 mls/hr Levetiracetam (Keppra Injection -) 500 mg IVPB BID [facility] Last Admin: 11/23/16 09:28 Dose: 500 mg Ondansetron HCl (Zofran Injection) 4 mg IVPB Q4H PRN PRN Reason: NAUSEA AND/OR VOMITING Pantoprazole Sodium (Protonix 40mg Ivpb (Pre-Docked)) 40 mg IVPB DAILY [facility] Last Admin: 11/23/16 09:28 Dose: 40 mg Potassium Phos/Sodium Phos (Phos-Nak Packet -) 1 packet PO DAILY [facility] Last Admin: 11/23/16 09:04 Dose: Not Given - Objective Vital Signs: Vital Signs Temperature 97.7 F 11/23/16 08:17 Pulse Rate 118 H 11/23/16 09:05 Respiratory Rate 20 11/23/16 09:05 Blood Pressure 96/44 11/23/16 09:05 O2 Sat by Pulse Oximetry (%) 100 11/23/16 07:45 Constitutional: Yes: Severe Distress Eyes: Yes: WNL HENT: Yes: WNL Neck: Yes: WNL Cardiovascular: Yes: Tachycardia Respiratory: Yes: Mechanically Ventilated Gastrointestinal: Yes: Tenderness, Other Genitourinary: Yes: Other Musculoskeletal: Yes: Muscle Weakness Extremities: Yes: Other Edema: Yes Peripheral Pulses WNL: Yes Integumentary: Yes: Rash, Venous Stasis Changes, Other Wound/Incision: Yes: Dressing Dry and Intact, Unapproximated Neurological: Yes: Other ...Motor Strength: LLE, RLE Psychiatric: Yes: Other Labs: CBC, BMP 11/23/16 01:00 11/23/16 01:00 INR, PTT INR 1.95 (0.82-1.09) H D 11/23/16 01:00 Fibrinogen 279.0 mg/dL (238-498) 11/14/16 06:15 Problem List - Problems (1) Cardiopulmonary arrest Code(s): I46.9 - CARDIAC ARREST, CAUSE UNSPECIFIED (2) DVT (deep venous thrombosis) Code(s): I82.409 - ACUTE EMBOLISM AND THOMBOS UNSP DEEP VN UNSP LOWER EXTREMITY (3) ESRD (end stage renal disease) on dialysis Code(s): N18.6 - END STAGE RENAL DISEASE Z99.2 - DEPENDENCE ON RENAL DIALYSIS (4) HCV (hepatitis C virus) Code(s): B19.20 - UNSPECIFIED VIRAL HEPATITIS C WITHOUT HEPATIC COMA (5) Metabolic encephalopathy Code(s): G93.41 - METABOLIC ENCEPHALOPATHY (6) Pneumonia Code(s): J18.9 - PNEUMONIA, UNSPECIFIED ORGANISM (7) Respiratory failure Code(s): J96.90 - RESPIRATORY FAILURE, UNSP, UNSP W HYPOXIA OR HYPERCAPNIA (8) Dysphagia Code(s): R13.10 - DYSPHAGIA, UNSPECIFIED Assessment/Plan POST OP DAY #1 JTUBE SEPSIS HYPOTENSION IV ABX STOP CLINMIX FOR NOW IVF CCU TEAM F/U ID CONSULT 02 SUPPORT TRACHEOSTOMY ON VENT
--- NOTE | 2016-11-23 09:54 | PN ---
Progress Note, Physician History of Present Illness: POD#2 J-tube insertion, exploratory , DANNY Hypotensive on pressors in ICU Afebrile WBC 25 - Current Medication List Current Medications: Active Medications Acetaminophen (Ofirmev Injection -) 700 mg IVPB Q6H PRN PRN Reason: FEVER Acetaminophen (Tylenol Oral Solution -) 650 mg NGT Q6H PRN PRN Reason: FEVER OR PAIN Albuterol Sulfate (Ventolin 0.083% Nebulizer Soln -) 1 amp NEB Q1H PRN PRN Reason: SHORT OF BREATH/WHEEZING Albuterol/Ipratropium (Duoneb -) 1 amp NEB TIDR MARIE Last Admin: 11/23/16 06:22 Dose: 1 amp Amino Acids (Prosource No Carb Liquid Pkt) 30 ml PO BID@0800,1730 MARIE Last Admin: 11/23/16 08:08 Dose: Not Given Bacitracin (Bacitracin -) 1 applic TP DAILY MARIE Last Admin: 11/23/16 09:28 Dose: 1 applic Calcitriol (Rocaltrol Liquid -) 0.25 mcg NGT DAILY MARIE Last Admin: 11/23/16 09:05 Dose: Not Given Fentanyl (Sublimaze Injection -) 25 mcg IVPUSH [id number] PRN PRN Reason: PAIN Stop: 11/25/16 22:05 Metronidazole (Flagyl 500mg Premixed Ivpb -) 100 mls @ 100 mls/hr IVPB Q8H-IV MARIE Last Admin: 11/23/16 09:04 Dose: 100 mls/hr Phenylephrine HCl 20,000 mcg/ (Sodium Chloride) 250 mls @ 75 mls/hr IVPB ASDIR MARIE; 100 MCG/MIN PRN Reason: Protocol Last Titration: 11/23/16 08:45 Dose: 15.06 mcg/min Fentanyl 500 mcg/ Dextrose 100 mls @ 10 mls/hr IJ TITR MARIE PRN Reason: 50 MCG/HR Last Admin: 11/23/16 00:35 Dose: 10 mls/hr Norepinephrine Bitartrate 16, (000 mcg/ Dextrose) 500 mls @ 9.37 mls/hr IV TITR MARIE; 5 MCG/MIN PRN Reason: Protocol Last Admin: 11/23/16 01:35 Dose: 9.37 mls/hr Levetiracetam (Keppra Injection -) 500 mg IVPB BID [facility] Last Admin: 11/23/16 09:28 Dose: 500 mg Ondansetron HCl (Zofran Injection) 4 mg IVPB Q4H PRN PRN Reason: NAUSEA AND/OR VOMITING Pantoprazole Sodium (Protonix 40mg Ivpb (Pre-Docked)) 40 mg IVPB DAILY [facility] Last Admin: 11/23/16 09:28 Dose: 40 mg Potassium Phos/Sodium Phos (Phos-Nak Packet -) 1 packet PO DAILY [facility] Last Admin: 11/23/16 09:04 Dose: Not Given - Objective Vital Signs: Vital Signs Temperature 97.7 F 11/23/16 08:17 Pulse Rate 118 H 11/23/16 09:05 Respiratory Rate 20 11/23/16 09:05 Blood Pressure 96/44 11/23/16 09:05 O2 Sat by Pulse Oximetry (%) 100 11/23/16 07:45 Constitutional: Yes: No Distress, Cachectic Eyes: Yes: Conjunctiva Clear Cardiovascular: Yes: Regular Rate and Rhythm, S1, S2 Respiratory: Yes: Mechanically Ventilated Gastrointestinal: Yes: Normal Bowel Sounds, Soft Edema: Yes Labs: CBC, BMP 11/23/16 01:00 11/23/16 01:00 INR, PTT INR 1.95 (0.82-1.09) H D 11/23/16 01:00 Fibrinogen 279.0 mg/dL (238-498) 11/14/16 06:15 Assessment/Plan S/P cardiopulmonary arrest/ respiratory failure POD #1 J-tube / laparotomy/ DANNY Hypotension, possible sepsis Leukocytosis Cirrhosis vancomycin allergy Repeat BC x2 Empiric coverage, GI pathogens with IV Zosyn/ flagyl
--- NOTE | 2016-11-23 09:57 | PN ---
Physical Exam: SUBJECTIVE: Patient seen and examined at bedside in the ICU. She's trached and on vent, opens eyes, tracks objects but does not follow command. OBJECTIVE: Vent settings: AC, RR 15, TV 350, FiO2 35%, PEEP 5 Trached and on Vent On levophed 3.5mcg and fentanyl 50mcg Central line (IJ) Day 1 Vital Signs Period Temp Pulse Resp BP Sys/Hodgson Pulse Ox Last 24 Hr 97.4 F-99.4 F 81-130 12-22 80-139/34-84 88-100 GENERAL: Trached and on vent, non-verbal, awake, does not follow command, responsive to pain stimuli, RASS 0. ENT: NG tube in place LUNGS: Decreased breath sounds HEART: RRR S1, S2 without murmur, rub or gallop. ABDOMEN: Absent bowel sounds, J-tube in place. Dressings in place on surgical sites EXTREMITIES: SCDs ABG Results ABG pH 7.31 (7.35-7.45) L 11/23/16 07:25 ABG pCO2 at Pt Temp 31.2 mmHg (35-45) L 11/23/16 07:25 ABG pO2 at Pt Temp 137.0 mmHg (70-100) H D 11/23/16 07:25 ABG HCO3 15.2 meq/L (22-26) L 11/23/16 07:25 ABG O2 Sat (Measured) 98.7 % (90-98.9) 11/23/16 07:25 ABG O2 Content 13.1 % vol (15-22) L 11/23/16 07:25 ABG Base Excess -9.7 meq/l (-2-2) L 11/23/16 07:25 CBCD WBC 25.4 K/mm3 (4.0-10.0) H D 11/23/16 01:00 RBC 2.90 M/mm3 (3.60-5.2) L 11/23/16 01:00 Hgb 9.3 GM/dL (10.7-15.3) L D 11/23/16 01:00 Hct 29.4 % (32.4-45.2) L D 11/23/16 01:00 MCV 101.3 fl (80-96) H 11/23/16 01:00 MCHC 31.6 g/dl (32.0-36.0) L 11/23/16 01:00 RDW 23.4 % (11.6-15.6) H 11/23/16 01:00 Plt Count 218 K/MM3 (134-434) D 11/23/16 01:00 MPV 9.3 fl (7.5-11.1) 11/23/16 01:00 CMP Sodium 137 mmol/L (136-145) 11/23/16 01:00 Potassium 3.5 mmol/L (3.5-5.1) 11/23/16 01:00 Chloride 101 mmol/L (98-107) 11/23/16 01:00 Carbon Dioxide 18 mmol/L (21-32) L D 11/23/16 01:00 Anion Gap 18 (8-16) H 11/23/16 01:00 BUN 40 mg/dL (7-18) H D 11/23/16 01:00 Creatinine 2.8 mg/dL (0.55-1.02) H 11/23/16 01:00 Creat Clearance w eGFR 16.30 (>60) 11/23/16 01:00 Calcium 8.2 mg/dL (8.5-10.1) L 11/23/16 01:00 Total Bilirubin 0.9 mg/dL (0.2-1.0) 11/23/16 01:00 AST 25 U/L (15-37) 11/23/16 01:00 ALT < 6 U/L (12-78) L 11/23/16 01:00 Alkaline Phosphatase 85 U/L (45-117) 11/23/16 01:00 Total Protein 5.2 g/dl (6.4-8.2) L 11/23/16 01:00 Albumin 1.2 g/dl (3.4-5.0) L 11/23/16 01:00 Intake & Output 11/20/16 11/21/16 11/22/16 11/23/16 23:59 23:59 23:59 23:59 Intake Total 1270 1530 1900 1563 Output Total 30 0 Balance 1270 1530 1870 1563 Weight 51.738 kg 51.738 kg 50.3 kg Active Medications Generic Name Dose Route Start Last Admin Trade Name Freq PRN Reason Stop Dose Admin Acetaminophen 700 mg 11/22/16 22:27 Ofirmev Injection - IVPB Q6H PRN FEVER Acetaminophen 650 mg 11/22/16 22:27 Tylenol Oral Solution - NGT Q6H PRN FEVER OR PAIN Albuterol Sulfate 1 amp 11/23/16 01:39 Ventolin 0.083% Nebulizer Soln - NEB Q1H PRN SHORT OF BREATH/WHEEZING Albuterol/Ipratropium 1 amp 11/23/16 06:00 11/23/16 06:22 Duoneb - NEB 1 amp TIDR MARIE Administration Amino Acids 30 ml 11/23/16 08:00 11/23/16 08:08 Prosource No Carb Liquid Pkt PO Not Given BID@0800,1730 MARIE Bacitracin 1 applic 11/23/16 10:00 11/23/16 09:28 Bacitracin - TP 1 applic DAILY MARIE Administration Calcitriol 0.25 mcg 11/23/16 10:00 11/23/16 09:05 Rocaltrol Liquid - NGT Not Given DAILY MARIE Fentanyl 25 mcg 11/22/16 22:04 Sublimaze Injection - IVPUSH 11/25/16 22:05 [id number] PRN PAIN Metronidazole 100 mls @ 100 mls/hr 11/23/16 02:00 11/23/16 09:04 Flagyl 500mg Premixed Ivpb - IVPB 100 mls/hr Q8H-IV MARIE Administration Amino Acids 1,000 mls @ 40 mls/hr 11/22/16 22:27 11/22/16 22:45 Clinimix - IV Not Given ASDIR MARIE Phenylephrine HCl 20,000 mcg/ 250 mls @ 75 mls/hr 11/22/16 23:30 11/23/16 08:45 Sodium Chloride IVPB 15.06 mcg/min ASDIR MARIE Titration Protocol 100 MCG/MIN Fentanyl 500 mcg/ Dextrose 100 mls @ 10 mls/hr 11/23/16 00:30 11/23/16 00:35 IJ 10 mls/hr TITR MARIE Administration 50 MCG/HR Norepinephrine Bitartrate 16, 500 mls @ 9.37 mls/hr 11/23/16 00:45 11/23/16 01: 35 000 mcg/ Dextrose IV 9.37 mls/hr TITR MARIE Administration Protocol 5 MCG/MIN Levetiracetam 500 mg 11/23/16 10:00 11/23/16 09:28 Keppra Injection - IVPB 500 mg BID MARIE Administration Ondansetron HCl 4 mg 11/22/16 22:27 Zofran Injection IVPB Q4H PRN NAUSEA AND/OR VOMITING Pantoprazole Sodium 40 mg 11/23/16 10:00 11/23/16 09:28 Protonix 40mg Ivpb (Pre-Docked) IVPB 40 mg DAILY MARIE Administration Potassium Phos/Sodium Phos 1 packet 11/23/16 10:00 11/23/16 09:04 Phos-Nak Packet - PO Not Given DAILY MARIE ASSESSMENT/PLAN: 80 yo F h/o HTN, GIB, chronic anemia 2/2 ESRD on HD, Hep C admitted to the hospital originally for cardiac arrest on 10/22. She's now trached due to respiratory failure requiring and sustained significant anoxic brain injury and recovered from sepsis. Patient was readmitted to the ICU s/p J-tube placement and exploratory lap for adhesion and small bowel resection. GI: s/p J-tube placement and exploratory lap - POD #1 - Routine wound care - Absent bowel sounds and movement - Consider start feeding tomorrow Pulm: Chronic respiratory insufficiency, trached and on vent - Trached on vent: see settings above - Maintain O2 Sat. > 88% - Nebulizers PRN - Daily ABG and CXR ID: Severe sepsis - Lactic acid trending up, will trend - Leukocytosis but afrebile - On empiric flagyl and zosyn - Daily CBCD Renal/: ESRD on HD - Received HD this AM - Will decrease fluid rate since BP stabilizing - Hold clinimix Heme: Chronic anemia 2/2 ESRD - HGB stable at baseline - On epogen - No blood transfusion on HD - Monitor H&H Cardiac: S/p cardiac arrest and hypothermic protocol - Coming off levophed, maintain MAP > 65% - Hold all anti-BP meds Neuro: Seizure disorder - Cont. anti-epileptic medications - Cont. to monitor neuro function FEN - Gentle hydration due to low BP - Cont. to monitor lytes after HD - NPO for now Prophylaxis - DVT: indicated due to h/o GIB and s/p surgery - GI: on PPI Disposition - Cont. to monitor in ICU Code status - Full code Visit type - Emergency Visit Emergency Visit: No - New Patient This patient is new to me today: Yes Date on this admission: 11/23/16 - Critical Care Critical Care patient: Yes Total Critical Care Time (in minutes): 45 Critical Care Statement: The care of this patient involved high complexity decision making to prevent further life threatening deterioration of the patient 's condition and/or to evalute & treat vital organ system(s) failure or risk of failure.
[2016-11-23] MEDS ORDERED: PIPERACILLIN/TAZOB 2.25 GM 2.25 GM in DEXTROSE 5%-WATER - 50 ML IVPB SCH (10:00)
[2016-11-23] MEDS ORDERED: PIPERACILLIN/TAZOB 3.375 GM 50 ML IVPB ONE (10:23)
[2016-11-23] MEDS ORDERED: SODIUM CHLORIDE 1,000 ML IV SCH (10:45)
[2016-11-23 11:29] LABS: MCH 32.7 pg (25.7-33.7); MCHC 32.9 g/dl (32.0-36.0); MEAN CELL VOLUME 99.3 fl (80-96); MEAN PLT VOLUME 9.5 fl (7.5-11.1); PLATELET COUNT 190 K/MM3 (134-434); RDW 22.9 % (11.6-15.6); WHITE BLOOD COUNT 24.2 K/mm3 (4.0-10.0)
--- NOTE | 2016-11-23 11:56 | PN ---
Teaching Attending Note Name of Resident: Sukhwinder Kohler ATTENDING PHYSICIAN STATEMENT I saw and evaluated the patient. I reviewed the resident's note and discussed the case with the resident. I agree with the resident's findings and plan as documented. SUBJECTIVE: Patient seen and examined in the ICU. Awake and responsive. Currently on 5 meq NE for BP support. About to have acute HD. AC Mode of vent. Intake & Output 11/20/16 11/21/16 11/22/16 11/23/16 23:59 23:59 23:59 23:59 Intake Total 1270 1530 1900 1563 Output Total 30 0 Balance 1270 1530 1870 1563 Weight 114 lb 1 oz 114 lb 1 oz 110 lb 14.28 oz Last Vital Signs Temp Pulse Resp BP Pulse Ox 97 F L 106 H 16 120/52 100 11/23/16 11:30 11/23/16 11:31 11/23/16 11:51 11/23/16 11:31 11/23/16 09:45 Active Medications Acetaminophen (Ofirmev Injection -) 700 mg IVPB Q6H PRN PRN Reason: FEVER Acetaminophen (Tylenol Oral Solution -) 650 mg NGT Q6H PRN PRN Reason: FEVER OR PAIN Albuterol Sulfate (Ventolin 0.083% Nebulizer Soln -) 1 amp NEB Q1H PRN PRN Reason: SHORT OF BREATH/WHEEZING Albuterol/Ipratropium (Duoneb -) 1 amp NEB TIDR [facility] Last Admin: 11/23/16 06:22 Dose: 1 amp Amino Acids (Prosource No Carb Liquid Pkt) 30 ml PO BID@0800,1730 [facility] Last Admin: 11/23/16 08:08 Dose: Not Given Bacitracin (Bacitracin -) 1 applic TP DAILY [facility] Last Admin: 11/23/16 09:28 Dose: 1 applic Calcitriol (Rocaltrol Liquid -) 0.25 mcg NGT DAILY [facility] Last Admin: 11/23/16 09:05 Dose: Not Given Fentanyl (Sublimaze Injection -) 25 mcg IVPUSH [id number] PRN PRN Reason: PAIN Stop: 11/25/16 22:05 Metronidazole (Flagyl 500mg Premixed Ivpb -) 100 mls @ 100 mls/hr IVPB Q8H-IV [facility] Last Admin: 11/23/16 09:04 Dose: 100 mls/hr Fentanyl 500 mcg/ Dextrose 100 mls @ 10 mls/hr IJ TITR [facility]IE PRN Reason: 50 MCG/HR Last Admin: 11/23/16 10:08 Dose: 10 mls/hr Norepinephrine Bitartrate 16, (000 mcg/ Dextrose) 500 mls @ 9.37 mls/hr IV TITR MARIE; 5 MCG/MIN PRN Reason: Protocol Last Titration: 11/23/16 11:31 Dose: 3 mcg/min Sodium Chloride (Normal Saline -) 1,000 mls @ 125 mls/hr IV ASDIR [facility] Last Admin: 11/23/16 11:22 Dose: 125 mls/hr Piperacillin Sod/Tazobactam Sod (Zosyn 2.25gm Ivpb (Pre-Docked)) 50 mls @ 100 mls/hr IVPB Q8H-IV [facility] PRN Reason: Protocol Levetiracetam (Keppra Injection -) 500 mg IVPB BID [facility] Last Admin: 11/23/16 09:28 Dose: 500 mg Ondansetron HCl (Zofran Injection) 4 mg IVPB Q4H PRN PRN Reason: NAUSEA AND/OR VOMITING Pantoprazole Sodium (Protonix 40mg Ivpb (Pre-Docked)) 40 mg IVPB DAILY [facility] Last Admin: 11/23/16 09:28 Dose: 40 mg Potassium Phos/Sodium Phos (Phos-Nak Packet -) 1 packet PO DAILY [facility] Last Admin: 11/23/16 09:04 Dose: Not Given Constitutional: Yes: Awake on AC Mode of vent Eyes: Yes: WNL HENT: Yes: WNL Neck: Yes: Supple (trach) Cardiovascular: Yes: Regular Rate and Rhythm, S1, S2 Respiratory: Yes: Rhonchi (few rhonchi) Gastrointestinal: Yes: post-op bandages intact, intact J-tube with some local leak/discharge Extremities: Yes: WNL Edema: Yes Laboratory Results - last 24 hr 11/20/16 11/23/16 11/23/16 13:00 00:47 01:00 WBC 25.4 H D RBC 2.90 L Hgb 9.3 L D Hct 29.4 L D MCV 101.3 H MCHC 31.6 L RDW 23.4 H Plt Count 218 D MPV 9.3 Neutrophils % 96.0 H Lymphocytes % 1.0 L D Monocytes % 3.0 L Anisocytosis 2+ Macrocytosis 2+ INR PTT (Actin FS) Puncture Site Right radial ABG pH 7.38 ABG pCO2 at Pt Temp 31.2 L D ABG pO2 at Pt Temp 416.0 H* ABG HCO3 17.9 L ABG O2 Sat (Measured) 100.0 H* ABG O2 Content 14.0 L ABG Base Excess -6.0 L Ventura Test Positive O2 Delivery Device Mech vent Oxygen Flow Rate 100 Vent Mode A/c Vent Rate 15 Mechanical Rate Yes PEEP 5.0 Pressure Support Vent 350 Sodium Potassium Chloride Carbon Dioxide Anion Gap BUN Creatinine Creat Clearance w eGFR POC Glucometer Random Glucose Lactic Acid Calcium Phosphorus Magnesium Total Bilirubin AST ALT Alkaline Phosphatase Creatine Kinase Troponin I C-Reactive Protein Total Protein Albumin Hep Bs Antigen Negative Hepatitis C Antibody >11.0 H 11/23/16 11/23/16 11/23/16 01:00 01:00 01:00 WBC RBC Hgb Hct MCV MCHC RDW Plt Count MPV Neutrophils % Lymphocytes % Monocytes % Anisocytosis Macrocytosis INR 1.95 H D PTT (Actin FS) 48.9 H D Puncture Site ABG pH ABG pCO2 at Pt Temp ABG pO2 at Pt Temp ABG HCO3 ABG O2 Sat (Measured) ABG O2 Content ABG Base Excess Ventura Test O2 Delivery Device Oxygen Flow Rate Vent Mode Vent Rate Mechanical Rate PEEP Pressure Support Vent Sodium 137 Potassium 3.5 Chloride 101 Carbon Dioxide 18 L D Anion Gap 18 H BUN 40 H D Creatinine 2.8 H Creat Clearance w eGFR 16.30 POC Glucometer Random Glucose 82 Lactic Acid 6.214 H* Calcium 8.2 L Phosphorus 2.7 Magnesium 1.4 L D Total Bilirubin 0.9 AST 25 ALT < 6 L Alkaline Phosphatase 85 Creatine Kinase 23 L Troponin I 0.02 C-Reactive Protein Total Protein 5.2 L Albumin 1.2 L Hep Bs Antigen Hepatitis C Antibody 11/23/16 11/23/16 11/23/16 01:17 01:30 05:15 WBC RBC Hgb Hct MCV MCHC RDW Plt Count MPV Neutrophils % Lymphocytes % Monocytes % Anisocytosis Macrocytosis INR PTT (Actin FS) Puncture Site ABG pH ABG pCO2 at Pt Temp ABG pO2 at Pt Temp ABG HCO3 ABG O2 Sat (Measured) ABG O2 Content ABG Base Excess Ventura Test O2 Delivery Device Oxygen Flow Rate Vent Mode Vent Rate Mechanical Rate PEEP Pressure Support Vent Sodium Potassium Chloride Carbon Dioxide Anion Gap BUN Creatinine Creat Clearance w eGFR POC Glucometer 131.07560 142.07866 Random Glucose Lactic Acid Calcium Phosphorus Magnesium Total Bilirubin AST ALT Alkaline Phosphatase Creatine Kinase Troponin I C-Reactive Protein 4.6 H D Total Protein Albumin Hep Bs Antigen Hepatitis C Antibody 11/23/16 11/23/16 11/23/16 07:25 07:39 11:15 WBC 24.2 H RBC 2.89 L Hgb 9.4 L Hct 28.7 L MCV 99.3 H MCHC 32.9 RDW 22.9 H Plt Count 190 MPV 9.5 Neutrophils % Lymphocytes % Monocytes % Anisocytosis Macrocytosis INR PTT (Actin FS) Puncture Site Right radial ABG pH 7.31 L ABG pCO2 at Pt Temp 31.2 L ABG pO2 at Pt Temp 137.0 H D ABG HCO3 15.2 L ABG O2 Sat (Measured) 98.7 ABG O2 Content 13.1 L ABG Base Excess -9.7 L Ventura Test Positive O2 Delivery Device Vent Oxygen Flow Rate 35% Vent Mode A/c Vent Rate 15 Mechanical Rate Y PEEP 5.0 Pressure Support Vent 350 Sodium Potassium Chloride Carbon Dioxide Anion Gap BUN Creatinine Creat Clearance w eGFR POC Glucometer Random Glucose Lactic Acid 6.997 H* Calcium Phosphorus Magnesium Total Bilirubin AST ALT Alkaline Phosphatase Creatine Kinase Troponin I C-Reactive Protein Total Protein Albumin Hep Bs Antigen Hepatitis C Antibody Problem List - Problems (1) Anemia Code(s): D64.9 - ANEMIA, UNSPECIFIED Qualifiers: Other causes of anemia: chronic disease, kidney (2) Cardiopulmonary arrest Code(s): I46.9 - CARDIAC ARREST, CAUSE UNSPECIFIED (3) DVT (deep venous thrombosis) Code(s): I82.409 - ACUTE EMBOLISM AND THOMBOS UNSP DEEP VN UNSP LOWER EXTREMITY (4) Dysphagia Code(s): R13.10 - DYSPHAGIA, UNSPECIFIED (5) ESRD (end stage renal disease) on dialysis Code(s): N18.6 - END STAGE RENAL DISEASE Z99.2 - DEPENDENCE ON RENAL DIALYSIS (6) Pneumonia Code(s): J18.9 - PNEUMONIA, UNSPECIFIED ORGANISM (7) Respiratory failure Code(s): J96.90 - RESPIRATORY FAILURE, UNSP, UNSP W HYPOXIA OR HYPERCAPNIA (8) Shock Code(s): R57.9 - SHOCK, UNSPECIFIED Assessment/Plan S/P Trach due to failure to wean s/p PEA Cardiopulmonary Arrest s/p Hypothermia Protocol Pneumonia S/P Septic Shock Pulmonary HTN Lactic Acidosis resolved ESRD on HD RLE distal DVT GI Bleed Thrombocytopenia Fever S/P Ex-lap due to SBO S/P J-tube placement - Wean pressors - HD per renal - Feeds when ok with surgery - empiric antiepileptics - spontaneous breathing trials as tolerated - DVT/GI prophylaxis - monitor lytes,h+h - Normal transfusion thresholds Dr Gonzalez CCTime 35"
--- NOTE | 2016-11-23 12:38 | PN ---
Progress Note (short form) - Note Progress Note: Surgery-Dr. Ignacio Patient seen and examined this morning. Discussed with nurse. Postop patient had RIJ central line placed, on pressors. Receiving HD. Last Vital Signs Temp Pulse Resp BP Pulse Ox 97 F L 106 H 16 120/52 100 11/23/16 11:30 11/23/16 11:31 11/23/16 11:51 11/23/16 11:31 11/23/16 09:45 CBC, BMP 11/23/16 11:15 11/23/16 01:00 Exam: Gen: NAD, lethargic Abd: soft, J tube in place with bag to gravity, some drainage around insertion site A/P POD#1 s/p exploratory laparotomy, extensive lysis of adhesions, small bowel resection, feeding jejunostomy Some drainage around J tube- J tube bag to gravity Follow labs, WBC Discussed with Dr. Ignacio
--- NOTE | 2016-11-23 13:34 | PN ---
Progress Note, Physician History of Present Illness: Pt seen and examined at bedside. She is in the ICU. Pt tolerated HD today. She was on pressors through dialysis. We were unable to remove much volume. - Current Medication List Current Medications: Active Medications Acetaminophen (Ofirmev Injection -) 700 mg IVPB Q6H PRN PRN Reason: FEVER Acetaminophen (Tylenol Oral Solution -) 650 mg NGT Q6H PRN PRN Reason: FEVER OR PAIN Albuterol Sulfate (Ventolin 0.083% Nebulizer Soln -) 1 amp NEB Q1H PRN PRN Reason: SHORT OF BREATH/WHEEZING Albuterol/Ipratropium (Duoneb -) 1 amp NEB TIDR [facility] Last Admin: 11/23/16 06:22 Dose: 1 amp Amino Acids (Prosource No Carb Liquid Pkt) 30 ml PO BID@0800,1730 [facility] Last Admin: 11/23/16 08:08 Dose: Not Given Bacitracin (Bacitracin -) 1 applic TP DAILY [facility] Last Admin: 11/23/16 09:28 Dose: 1 applic Calcitriol (Rocaltrol Liquid -) 0.25 mcg NGT DAILY [facility] Last Admin: 11/23/16 09:05 Dose: Not Given Fentanyl (Sublimaze Injection -) 25 mcg IVPUSH [id number] PRN PRN Reason: PAIN Stop: 11/25/16 22:05 Metronidazole (Flagyl 500mg Premixed Ivpb -) 100 mls @ 100 mls/hr IVPB Q8H-IV [facility] Last Admin: 11/23/16 09:04 Dose: 100 mls/hr Fentanyl 500 mcg/ Dextrose 100 mls @ 10 mls/hr IJ TITR [facility] PRN Reason: 50 MCG/HR Last Admin: 11/23/16 10:08 Dose: 10 mls/hr Norepinephrine Bitartrate 16, (000 mcg/ Dextrose) 500 mls @ 9.37 mls/hr IV TITR [facility]; 5 MCG/MIN PRN Reason: Protocol Last Titration: 11/23/16 13:05 Dose: 2.02 mcg/min Sodium Chloride (Normal Saline -) 1,000 mls @ 125 mls/hr IV ASDIR [facility] Last Admin: 11/23/16 11:22 Dose: 125 mls/hr Piperacillin Sod/Tazobactam Sod (Zosyn 2.25gm Ivpb (Pre-Docked)) 50 mls @ 100 mls/hr IVPB Q8H-IV [facility] PRN Reason: Protocol Levetiracetam (Keppra Injection -) 500 mg IVPB BID [facility] Last Admin: 11/23/16 09:28 Dose: 500 mg Ondansetron HCl (Zofran Injection) 4 mg IVPB Q4H PRN PRN Reason: NAUSEA AND/OR VOMITING Pantoprazole Sodium (Protonix 40mg Ivpb (Pre-Docked)) 40 mg IVPB DAILY [facility] Last Admin: 11/23/16 09:28 Dose: 40 mg Potassium Phos/Sodium Phos (Phos-Nak Packet -) 1 packet PO DAILY [facility] Last Admin: 11/23/16 09:04 Dose: Not Given - Objective Vital Signs: Vital Signs Temperature 97 F L 11/23/16 11:30 Pulse Rate 96 H 11/23/16 13:19 Respiratory Rate 15 11/23/16 13:19 Blood Pressure 121/42 11/23/16 13:19 O2 Sat by Pulse Oximetry (%) 100 11/23/16 09:45 Constitutional: Yes: Calm Eyes: Yes: Conjunctiva Clear Neck: Yes: Other (trache) Cardiovascular: Yes: Tachycardia, S1, S2 Respiratory: Yes: Mechanically Ventilated Gastrointestinal: Yes: Other (dressing in place, tender) Genitourinary: Yes: Incontinence Musculoskeletal: Yes: Muscle Weakness Edema: Yes Wound/Incision: Yes: Dressing Dry and Intact Neurological: Yes: Other (awake) Labs: INR, PTT INR 1.95 (0.82-1.09) H D 11/23/16 01:00 Fibrinogen 279.0 mg/dL (238-498) 11/14/16 06:15 - ....Imaging Chest X-ray: Report Reviewed Problem List - Problems (1) Cardiopulmonary arrest Code(s): I46.9 - CARDIAC ARREST, CAUSE UNSPECIFIED (2) DVT (deep venous thrombosis) Code(s): I82.409 - ACUTE EMBOLISM AND THOMBOS UNSP DEEP VN UNSP LOWER EXTREMITY (3) ESRD (end stage renal disease) on dialysis Code(s): N18.6 - END STAGE RENAL DISEASE Z99.2 - DEPENDENCE ON RENAL DIALYSIS (4) HCV (hepatitis C virus) Code(s): B19.20 - UNSPECIFIED VIRAL HEPATITIS C WITHOUT HEPATIC COMA (5) Respiratory failure Code(s): J96.90 - RESPIRATORY FAILURE, UNSP, UNSP W HYPOXIA OR HYPERCAPNIA Assessment/Plan Current Medications Generic Name Dose Route Start Last Admin Trade Name Freq PRN Reason Stop Dose Admin Acetaminophen 700 mg 11/22/16 22:27 Ofirmev Injection - IVPB Q6H PRN FEVER Acetaminophen 650 mg 11/22/16 22:27 Tylenol Oral Solution - NGT Q6H PRN FEVER OR PAIN Albuterol Sulfate 1 amp 11/23/16 01:39 Ventolin 0.083% Nebulizer Soln - NEB Q1H PRN SHORT OF BREATH/WHEEZING Albuterol/Ipratropium 1 amp 11/23/16 06:00 11/23/16 06:22 Duoneb - NEB 1 amp TIDR [facility] Administration Amino Acids 30 ml 11/23/16 08:00 11/23/16 08:08 Prosource No Carb Liquid Pkt PO Not Given BID@0800,1730 [facility] Bacitracin 1 applic 11/23/16 10:00 11/23/16 09:28 Bacitracin - TP 1 applic DAILY [facility] Administration Calcitriol 0.25 mcg 11/23/16 10:00 11/23/16 09:05 Rocaltrol Liquid - NGT Not Given DAILY [facility] Fentanyl 25 mcg 11/22/16 22:04 Sublimaze Injection - IVPUSH 11/25/16 22:05 [id number] PRN PAIN Metronidazole 100 mls @ 100 mls/hr 11/23/16 02:00 11/23/16 09:04 Flagyl 500mg Premixed Ivpb - IVPB 100 mls/hr Q8H-IV [facility] Administration Fentanyl 500 mcg/ Dextrose 100 mls @ 10 mls/hr 11/23/16 00:30 11/23/16 10:08 IJ 10 mls/hr TITR MARIE Administration 50 MCG/HR Norepinephrine Bitartrate 16, 500 mls @ 9.37 mls/hr 11/23/16 00:45 11/23/16 13: 05 000 mcg/ Dextrose IV 2.02 mcg/min TITR MARIE Titration Protocol 5 MCG/MIN Sodium Chloride 1,000 mls @ 125 mls/hr 11/23/16 10:45 11/23/16 11:22 Normal Saline - IV 125 mls/hr ASDIR [facility] Administration Piperacillin Sod/Tazobactam Sod 50 mls @ 100 mls/hr 11/23/16 11:31 Zosyn 2.25gm Ivpb (Pre-Docked) IVPB Q8H-IV [facility]IE Protocol Levetiracetam 500 mg 11/23/16 10:00 11/23/16 09:28 Keppra Injection - IVPB 500 mg BID [facility] Administration Ondansetron HCl 4 mg 11/22/16 22:27 Zofran Injection IVPB Q4H PRN NAUSEA AND/OR VOMITING Pantoprazole Sodium 40 mg 11/23/16 10:00 11/23/16 09:28 Protonix 40mg Ivpb (Pre-Docked) IVPB 40 mg DAILY [facility] Administration Potassium Phos/Sodium Phos 1 packet 11/23/16 10:00 11/23/16 09:04 Phos-Nak Packet - PO Not Given DAILY [facility] 11/13/16 cultures no growth to date 11/16/16 blood cultures negative to date Impression 1. ESRD 2. s/p cardiopulmonary arrest 3. acute respiratory failure 4. Pneumonia 5. DVT of right leg 6. S/P Seizure following the arrest 7. Right renal complex cyst > 5cms in diameter 8. Anemia 9. Thrombocytopenia 10. H/O HCV 11. GI bleed 12. s/p exploratory laparotomy, lysis of adhesions, small bowel resection, and feeding jejunostomy Plan - pt was dialyzed today in ICU at bedside - wound care - blood pressure is improved, recommend decreasing current fluids - discussed with nurse - epogen for anemia - vent support - discussed with ICU team - monitor bloodwork - check lactic acid level - pt has antibodies and can not be transfused on HD - reviewed monitor - follow up repeat labs, follow up lactic acid level - surgery input appreciated - pulmonary input appreciated Dr Espino
[2016-11-23 13:39] LABS: CREATININE 1.9 mg/dL (0.55-1.02)
[2016-11-23 13:44] LABS: BASOPHIL 0.2 % (0-2.0); MCH 32.3 pg (25.7-33.7); MCHC 31.8 g/dl (32.0-36.0); MEAN CELL VOLUME 101.8 fl (80-96); MEAN PLT VOLUME 9.2 fl (7.5-11.1); NEUTROPHILS 82.8 % (42.8-82.8); PLATELET COUNT 130 K/MM3 (134-434); RDW 23.2 % (11.6-15.6); WHITE BLOOD COUNT 16.2 K/mm3 (4.0-10.0)
[2016-11-23] MEDS: SODIUM CHLORIDE 1,000 ML IV SCH (13:45)
--- NOTE | 2016-11-23 13:55 | PN ---
Progress Note (short form) - Note Progress Note: ANESTHESIA POD#1 S/P Ex-Lap small bowel resection and Placement of J-tube Patient became hypotensive shortly after the surgery.Treated with fluids and levophed. Stable after night,mini dose of levophed on. Breathing by ventilator with 35% of o2. Psat 100% HR 90,BP 106/45. A/P No anesthesia complications seen. recovering well. Dorie Samayoa..
[2016-11-23] MEDS: PIPERACILLIN/TAZOB 2.25 GM 50 ML IVPB SCH (17:20)
--- NOTE | 2016-11-23 22:49 | PN ---
Progress Note (short form) - Note Progress Note: improving hemodynamcs significant anemia s/p difficult Jtube placement requiring extensive lysis of adhesions with significant fluid shifts Consider transfusion during next dialysis continue to wean off pressors
[2016-11-24] MEDS: METRONIDAZOLE 500 MG PREMIXED 100 ML IVPB SCH (01:21)
[2016-11-24] MEDS: NOREPINEPHRINE BITARTRATE 16,000 MCG in DEXTROSE 5%-WATER - 484 ML IV SCH (01:21)
[2016-11-24] MEDS: FENTANYL INJECTION 500 MCG in DEXTROSE 5%-WATER - 90 ML IJ SCH ×2 (01:22→17:25)
[2016-11-24] MEDS: PIPERACILLIN/TAZOB 2.25 GM 50 ML IVPB SCH ×3 (01:25→17:26)
[2016-11-24] MEDS: ALBUTEROL SO4 2.5/IPRATROPIUM 0.5 INH SOL 3 ML VIAL.NEB. NEB SCH ×3 (06:05→22:32)
[2016-11-24 06:06] LABS: HCV LOG 10 6.459 (.)
--- NOTE | 2016-11-24 07:28 | PN ---
Progress Note, Physician Chief Complaint: ID Vent dependent Now off pressors Alert NAD Pip Tazobactam metronidazole Day 3 post op exploratory lap - Current Medication List Current Medications: Active Medications Acetaminophen (Ofirmev Injection -) 700 mg IVPB Q6H PRN PRN Reason: FEVER Acetaminophen (Tylenol Oral Solution -) 650 mg NGT Q6H PRN PRN Reason: FEVER OR PAIN Albuterol Sulfate (Ventolin 0.083% Nebulizer Soln -) 1 amp NEB Q1H PRN PRN Reason: SHORT OF BREATH/WHEEZING Albuterol/Ipratropium (Duoneb -) 1 amp NEB TIDR [facility] Last Admin: 11/24/16 06:05 Dose: 1 amp Amino Acids (Prosource No Carb Liquid Pkt) 30 ml PO BID@0800,1730 [facility] Last Admin: 11/23/16 16:40 Dose: Not Given Bacitracin (Bacitracin -) 1 applic TP DAILY [facility] Last Admin: 11/23/16 09:28 Dose: 1 applic Calcitriol (Rocaltrol Liquid -) 0.25 mcg NGT DAILY [facility] Last Admin: 11/23/16 09:05 Dose: Not Given Fentanyl (Sublimaze Injection -) 25 mcg IVPUSH [id number] PRN PRN Reason: PAIN Stop: 11/25/16 22:05 Metronidazole (Flagyl 500mg Premixed Ivpb -) 100 mls @ 100 mls/hr IVPB Q8H-IV [facility] Last Admin: 11/24/16 01:21 Dose: 100 mls/hr Fentanyl 500 mcg/ Dextrose 100 mls @ 10 mls/hr IJ TITR [facility] PRN Reason: 50 MCG/HR Last Admin: 11/24/16 01:22 Dose: 10 mls/hr Norepinephrine Bitartrate 16, (000 mcg/ Dextrose) 500 mls @ 9.37 mls/hr IV TITR MARIE; 5 MCG/MIN PRN Reason: Protocol Last Admin: 11/24/16 01:21 Dose: Not Given Piperacillin Sod/Tazobactam Sod (Zosyn 2.25gm Ivpb (Pre-Docked)) 50 mls @ 100 mls/hr IVPB Q8H-IV [facility] PRN Reason: Protocol Last Admin: 11/24/16 01:25 Dose: 100 mls/hr Sodium Chloride (Normal Saline -) 1,000 mls @ 72 mls/hr IV ASDIR [facility] Last Admin: 11/23/16 13:45 Dose: 72 mls/hr Levetiracetam (Keppra Injection -) 500 mg IVPB BID [facility] Last Admin: 11/23/16 21:09 Dose: 500 mg Ondansetron HCl (Zofran Injection) 4 mg IVPB Q4H PRN PRN Reason: NAUSEA AND/OR VOMITING Pantoprazole Sodium (Protonix 40mg Ivpb (Pre-Docked)) 40 mg IVPB DAILY [facility] Last Admin: 11/23/16 09:28 Dose: 40 mg Potassium Phos/Sodium Phos (Phos-Nak Packet -) 1 packet PO DAILY [facility] Last Admin: 11/23/16 09:04 Dose: Not Given - Objective Vital Signs: Vital Signs Temperature 97 F L 11/23/16 17:43 Pulse Rate 102 H 11/24/16 06:00 Respiratory Rate 15 11/24/16 06:22 Blood Pressure 112/53 11/24/16 06:00 O2 Sat by Pulse Oximetry (%) 100 11/23/16 20:24 Constitutional: Yes: Other (Vent dependent) Cardiovascular: Yes: S1, S2 Respiratory: Yes: WNL, Rales, Rhonchi. No: Wheezes Gastrointestinal: Yes: Soft, Other (post op). No: Tenderness Edema: No Labs: CBC, BMP 11/23/16 13:00 11/23/16 13:00 INR, PTT INR 1.95 (0.82-1.09) H D 11/23/16 01:00 Fibrinogen 279.0 mg/dL (238-498) 11/14/16 06:15 Problem List - Problems (1) Cardiopulmonary arrest Code(s): I46.9 - CARDIAC ARREST, CAUSE UNSPECIFIED (2) ESRD (end stage renal disease) on dialysis Code(s): N18.6 - END STAGE RENAL DISEASE Z99.2 - DEPENDENCE ON RENAL DIALYSIS (3) Pneumonia Code(s): J18.9 - PNEUMONIA, UNSPECIFIED ORGANISM (4) Respiratory failure Code(s): J96.90 - RESPIRATORY FAILURE, UNSP, UNSP W HYPOXIA OR HYPERCAPNIA (5) Status post exploratory laparotomy Code(s): Z98.89 - OTHER SPECIFIED POSTPROCEDURAL STATES * DO NOT USE * Assessment/Plan Microbiology 11/16/16 00:45 Blood - Peripheral Venous Blood Culture - Final NO GROWTH AFTER 5 DAYS INCUBATION Laboratory Tests 11/23/16 11/23/16 11/23/16 01:00 13:00 13:00 WBC 16.2 H D Hgb 7.7 L D Hct 24.2 L D Plt Count 130 L D INR 1.95 H D BUN 23 H D Creatinine 1.9 H D Assessment Exploratory Lap day 3 ESRD Sepsis syndrome S/P cardiac arrest Plan Continue Zosyn stop metronidazole Helen ZHAO
[2016-11-24 08:31] LABS: BASOPHIL 0.1 % (0-2.0); EOSINOPHIL 0.2 % (0-4.5); MCH 32.9 pg (25.7-33.7); MCHC 32.9 g/dl (32.0-36.0); MEAN PLT VOLUME 8.3 fl (7.5-11.1); NEUTROPHILS 74.7 % (42.8-82.8); PLATELET COUNT 91 K/MM3 (134-434); RDW 23.4 % (11.6-15.6); WHITE BLOOD COUNT 9.1 K/mm3 (4.0-10.0)
[2016-11-24 08:48] LABS: ARTERIAL BLD GAS O2 SATURATION 95.8 % (90-98.9); ARTERIAL BLOOD GAS BASE EXCESS 2.6 meq/l (-2-2); ARTERIAL BLOOD GAS PO2 70.7 mmHg (70-100)
[2016-11-24 08:49] LABS: ALLENS TEST POSITIVE
[2016-11-24 08:50] LABS: ART PUNCT SITE RIGHT RADIAL; LPM/O2% 35; MECH. VENT. YES; PT. ON O2? YES; TYPE OF O2 VENT; VENT RATE 15; VT/PRESS 350
[2016-11-24 08:51] LABS: ARTERIAL BLOOD GAS pH 7.47 (7.35-7.45)
[2016-11-24] MEDS: PANTOPRAZOLE SODIUM 40 MG/100 ML PRE-DOCKED IVPB SCH (09:20)
[2016-11-24] MEDS: levETIRAcetam 500 MG/5 ML INJECTION VIAL IVPB SCH ×2 (09:20→21:43)
[2016-11-24] MEDS: AMINO ACIDS/PROTEIN HYDROLYS 30 ML LIQUID.PKT PO SCH ×2 (09:21→17:27)
[2016-11-24] MEDS: CALCITRIOL 1 MCG/ML BOT NGT SCH (09:22)
[2016-11-24] MEDS: NAPH,MB-DB/K PH,MBDB POWDER PACKET PO SCH (09:22)
[2016-11-24] MEDS: BACITRACIN 30 GM TUBE TOPICAL OINTMENT TP SCH (09:24)
[2016-11-24 09:33] LABS: ALBUMIN 1.3 g/dl (3.4-5.0); CALCIUM 7.7 mg/dL (8.5-10.1); CREATININE 2.2 mg/dL (0.55-1.02); MAGNESIUM 1.3 mg/dL (1.8-2.4)
[2016-11-24 09:34] LABS: BILIRUBIN,TOTAL 0.8 mg/dL (0.2-1.0); TOT PROT 5.1 g/dl (6.4-8.2)
--- NOTE | 2016-11-24 10:30 | PN ---
Progress Note, Physician Chief Complaint: AWAKE, CONFUSED +TRACHEOSTOMY EVENTS AND CHART REVIEWED - Current Medication List Current Medications: Active Medications Acetaminophen (Ofirmev Injection -) 700 mg IVPB Q6H PRN PRN Reason: FEVER Acetaminophen (Tylenol Oral Solution -) 650 mg NGT Q6H PRN PRN Reason: FEVER OR PAIN Albuterol Sulfate (Ventolin 0.083% Nebulizer Soln -) 1 amp NEB Q1H PRN PRN Reason: SHORT OF BREATH/WHEEZING Albuterol/Ipratropium (Duoneb -) 1 amp NEB TIDR [facility] Last Admin: 11/24/16 06:05 Dose: 1 amp Amino Acids (Prosource No Carb Liquid Pkt) 30 ml PO BID@0800,1730 [facility] Last Admin: 11/24/16 09:21 Dose: Not Given Bacitracin (Bacitracin -) 1 applic TP DAILY [facility] Last Admin: 11/24/16 09:24 Dose: 1 applic Calcitriol (Rocaltrol Liquid -) 0.25 mcg NGT DAILY [facility] Last Admin: 11/24/16 09:22 Dose: Not Given Fentanyl (Sublimaze Injection -) 25 mcg IVPUSH [id number] PRN PRN Reason: PAIN Stop: 11/25/16 22:05 Hydromorphone HCl (Dilaudid Injection -) 2 mg IVPB Q4H PRN PRN Reason: PAIN Stop: 11/25/16 10:12 Fentanyl 500 mcg/ Dextrose 100 mls @ 10 mls/hr IJ TITR [facility]IE PRN Reason: 50 MCG/HR Last Admin: 11/24/16 01:22 Dose: 10 mls/hr Norepinephrine Bitartrate 16, (000 mcg/ Dextrose) 500 mls @ 9.37 mls/hr IV TITR [facility]IE; 5 MCG/MIN PRN Reason: Protocol Last Admin: 11/24/16 01:21 Dose: Not Given Piperacillin Sod/Tazobactam Sod (Zosyn 2.25gm Ivpb (Pre-Docked)) 50 mls @ 100 mls/hr IVPB Q8H-IV [facility] PRN Reason: Protocol Last Admin: 11/24/16 09:21 Dose: 100 mls/hr Sodium Chloride (Normal Saline -) 1,000 mls @ 72 mls/hr IV ASDIR [facility] Last Admin: 11/23/16 13:45 Dose: 72 mls/hr Levetiracetam (Keppra Injection -) 500 mg IVPB BID [facility] Last Admin: 11/24/16 09:20 Dose: 500 mg Ondansetron HCl (Zofran Injection) 4 mg IVPB Q4H PRN PRN Reason: NAUSEA AND/OR VOMITING Pantoprazole Sodium (Protonix 40mg Ivpb (Pre-Docked)) 40 mg IVPB DAILY [facility] Last Admin: 11/24/16 09:20 Dose: 40 mg Potassium Phos/Sodium Phos (Phos-Nak Packet -) 1 packet PO DAILY [facility] Last Admin: 11/24/16 09:22 Dose: Not Given - Objective Vital Signs: Vital Signs Temperature 98.5 F 11/24/16 08:00 Pulse Rate 102 H 11/24/16 10:00 Respiratory Rate 10 L 11/24/16 10:00 Blood Pressure 102/36 11/24/16 10:00 O2 Sat by Pulse Oximetry (%) 98 11/24/16 09:40 Constitutional: Yes: Moderate Distress Eyes: Yes: WNL HENT: Yes: WNL Neck: Yes: WNL Cardiovascular: Yes: WNL Respiratory: Yes: Mechanically Ventilated Gastrointestinal: Yes: Tenderness, Other Musculoskeletal: Yes: Muscle Weakness Extremities: Yes: Other Edema: Yes Peripheral Pulses WNL: Yes Integumentary: Yes: WNL, Venous Stasis Changes Wound/Incision: Yes: Dressing Dry and Intact, Other Neurological: Yes: Confusion, Pre-Existing Deficit ...Motor Strength: LLE, RLE Psychiatric: Yes: Agitated Labs: CBC, BMP 11/24/16 08:05 11/24/16 08:05 INR, PTT INR 1.95 (0.82-1.09) H D 11/23/16 01:00 Fibrinogen 279.0 mg/dL (238-498) 11/14/16 06:15 Problem List - Problems (1) Cardiopulmonary arrest Code(s): I46.9 - CARDIAC ARREST, CAUSE UNSPECIFIED (2) DVT (deep venous thrombosis) Code(s): I82.409 - ACUTE EMBOLISM AND THOMBOS UNSP DEEP VN UNSP LOWER EXTREMITY (3) ESRD (end stage renal disease) on dialysis Code(s): N18.6 - END STAGE RENAL DISEASE Z99.2 - DEPENDENCE ON RENAL DIALYSIS (4) HCV (hepatitis C virus) Code(s): B19.20 - UNSPECIFIED VIRAL HEPATITIS C WITHOUT HEPATIC COMA (5) Metabolic encephalopathy Code(s): G93.41 - METABOLIC ENCEPHALOPATHY (6) Pneumonia Code(s): J18.9 - PNEUMONIA, UNSPECIFIED ORGANISM (7) Respiratory failure Code(s): J96.90 - RESPIRATORY FAILURE, UNSP, UNSP W HYPOXIA OR HYPERCAPNIA (8) Dysphagia Code(s): R13.10 - DYSPHAGIA, UNSPECIFIED Assessment/Plan CHECK AMMONIA LEVEL FOR CONFUSION AND HISTORY OF HEPATIC ABNORMALITY NEUROLOGY F/U APPRECIATED TRANSFUSE PRBC WITH HD TODAY VENT DEPENDENT WEAN TOLERATED BEDSIDE PT WOUND CARE PROSTAT MVI
--- NOTE | 2016-11-24 11:28 | PN ---
Teaching Attending Note Name of Resident: Sukhwinder Kohler ATTENDING PHYSICIAN STATEMENT I saw and evaluated the patient. I reviewed the resident's note and discussed the case with the resident. I agree with the resident's findings and plan as documented. SUBJECTIVE: Patient seen and examined in the ICU. Awake and responsive. Uncomfortable due to abdominal pain. Currently off pressors. Noted drop in H&H. (+) BM. AC Mode of vent. Intake & Output 11/21/16 11/22/16 11/23/16 11/24/16 23:59 23:59 23:59 23:59 Intake Total 1530 1900 2713 1092.8 Output Total 30 0 0 Balance 1530 1870 2713 1092.8 Weight 114 lb 1 oz 114 lb 1 oz 110 lb 14.28 oz 113 lb 1.554 oz Last Vital Signs Temp Pulse Resp BP Pulse Ox 98.5 F 102 H 10 L 102/36 98 11/24/16 08:00 11/24/16 10:00 11/24/16 10:00 11/24/16 10:00 11/24/16 09:40 Active Medications Acetaminophen (Ofirmev Injection -) 700 mg IVPB Q6H PRN PRN Reason: FEVER Acetaminophen (Tylenol Oral Solution -) 650 mg NGT Q6H PRN PRN Reason: FEVER OR PAIN Albuterol Sulfate (Ventolin 0.083% Nebulizer Soln -) 1 amp NEB Q1H PRN PRN Reason: SHORT OF BREATH/WHEEZING Albuterol/Ipratropium (Duoneb -) 1 amp NEB TIDR [facility] Last Admin: 11/24/16 06:05 Dose: 1 amp Amino Acids (Prosource No Carb Liquid Pkt) 30 ml PO BID@0800,1730 [facility] Last Admin: 11/24/16 09:21 Dose: Not Given Bacitracin (Bacitracin -) 1 applic TP DAILY [facility] Last Admin: 11/24/16 09:24 Dose: 1 applic Calcitriol (Rocaltrol Liquid -) 0.25 mcg NGT DAILY [facility] Last Admin: 11/24/16 09:22 Dose: Not Given Fentanyl (Sublimaze Injection -) 25 mcg IVPUSH [id number] PRN PRN Reason: PAIN Stop: 11/25/16 22:05 Hydromorphone HCl (Dilaudid Injection -) 2 mg IVPB Q4H PRN PRN Reason: PAIN Stop: 11/25/16 10:12 Fentanyl 500 mcg/ Dextrose 100 mls @ 10 mls/hr IJ TITR MARIE PRN Reason: 50 MCG/HR Last Admin: 11/24/16 01:22 Dose: 10 mls/hr Norepinephrine Bitartrate 16, (000 mcg/ Dextrose) 500 mls @ 9.37 mls/hr IV TITR MARIE; 5 MCG/MIN PRN Reason: Protocol Last Admin: 11/24/16 01:21 Dose: Not Given Piperacillin Sod/Tazobactam Sod (Zosyn 2.25gm Ivpb (Pre-Docked)) 50 mls @ 100 mls/hr IVPB Q8H-IV MARIE PRN Reason: Protocol Last Admin: 11/24/16 09:21 Dose: 100 mls/hr Sodium Chloride (Normal Saline -) 1,000 mls @ 72 mls/hr IV ASDIR [facility] Last Admin: 11/23/16 13:45 Dose: 72 mls/hr Levetiracetam (Keppra Injection -) 500 mg IVPB BID [facility] Last Admin: 11/24/16 09:20 Dose: 500 mg Ondansetron HCl (Zofran Injection) 4 mg IVPB Q4H PRN PRN Reason: NAUSEA AND/OR VOMITING Pantoprazole Sodium (Protonix 40mg Ivpb (Pre-Docked)) 40 mg IVPB DAILY [facility] Last Admin: 11/24/16 09:20 Dose: 40 mg Potassium Phos/Sodium Phos (Phos-Nak Packet -) 1 packet PO DAILY [facility] Last Admin: 11/24/16 09:22 Dose: Not Given Constitutional: Yes: Awake on AC Mode of vent, uncomfortable due to pain Eyes: Yes: WNL HENT: Yes: WNL Neck: Yes: Supple (trach) Cardiovascular: Yes: Regular Rate and Rhythm, S1, S2 Respiratory: Yes: Rhonchi (few rhonchi) Gastrointestinal: Yes: post-op bandages intact, intact J-tube with some local leak/discharge Extremities: Yes: WNL Edema: Yes Laboratory Results - last 24 hr 11/20/16 11/21/16 11/23/16 10:00 16:15 11:15 WBC 24.2 H RBC 2.89 L Hgb 9.4 L Hct 28.7 L MCV 99.3 H MCHC 32.9 RDW 22.9 H Plt Count 190 MPV 9.5 Neutrophils % Lymphocytes % Monocytes % Eosinophils % Basophils % Puncture Site ABG pH ABG pCO2 at Pt Temp ABG pO2 at Pt Temp ABG HCO3 ABG O2 Sat (Measured) ABG O2 Content ABG Base Excess Ventura Test O2 Delivery Device Oxygen Flow Rate Vent Mode Vent Rate Mechanical Rate PEEP Pressure Support Vent Sodium Potassium Chloride Carbon Dioxide Anion Gap BUN Creatinine Creat Clearance w eGFR Random Glucose Lactic Acid Calcium Magnesium Total Bilirubin AST ALT Alkaline Phosphatase Total Protein Albumin HCV Quantitation [id number] HCV RNA log copies/mL 6.459 Crossmatch See Detail 11/23/16 11/23/16 11/23/16 13:00 13:00 13:00 WBC 16.2 H D RBC 2.38 L Hgb 7.7 L D Hct 24.2 L D MCV 101.8 H MCHC 31.8 L RDW 23.2 H Plt Count 130 L D MPV 9.2 Neutrophils % 82.8 Lymphocytes % 9.0 D Monocytes % 8.0 D Eosinophils % 0.0 D Basophils % 0.2 Puncture Site ABG pH ABG pCO2 at Pt Temp ABG pO2 at Pt Temp ABG HCO3 ABG O2 Sat (Measured) ABG O2 Content ABG Base Excess Ventura Test O2 Delivery Device Oxygen Flow Rate Vent Mode Vent Rate Mechanical Rate PEEP Pressure Support Vent Sodium 140 Potassium 3.3 L Chloride 100 Carbon Dioxide 24 D Anion Gap 16 BUN 23 H D Creatinine 1.9 H D Creat Clearance w eGFR Random Glucose 100 D Lactic Acid 7.550 H* Calcium 8.0 L Magnesium Total Bilirubin AST ALT Alkaline Phosphatase Total Protein Albumin HCV Quantitation HCV RNA log copies/mL Crossmatch 11/24/16 11/24/16 11/24/16 08:05 08:05 08:05 WBC 9.1 D RBC 2.06 L Hgb 6.8 L* D Hct 20.6 L MCV 100.0 H MCHC 32.9 RDW 23.4 H Plt Count 91 L D MPV 8.3 Neutrophils % 74.7 Lymphocytes % 14.1 D Monocytes % 10.9 H Eosinophils % 0.2 D Basophils % 0.1 Puncture Site ABG pH ABG pCO2 at Pt Temp ABG pO2 at Pt Temp ABG HCO3 ABG O2 Sat (Measured) ABG O2 Content ABG Base Excess Ventura Test O2 Delivery Device Oxygen Flow Rate Vent Mode Vent Rate Mechanical Rate PEEP Pressure Support Vent Sodium 139 Potassium 3.2 L Chloride 102 Carbon Dioxide 28 Anion Gap 9 BUN 29 H D Creatinine 2.2 H Creat Clearance w eGFR 21.53 Random Glucose 65 L D Lactic Acid 2.131 H* Calcium 7.7 L Magnesium 1.3 L Total Bilirubin 0.8 AST 40 H D ALT 7 L Alkaline Phosphatase 72 Total Protein 5.1 L Albumin 1.3 L HCV Quantitation HCV RNA log copies/mL Crossmatch 11/24/16 11/24/16 08:05 08:30 WBC RBC Hgb Hct MCV MCHC RDW Plt Count MPV Neutrophils % Lymphocytes % Monocytes % Eosinophils % Basophils % Puncture Site Right radial ABG pH 7.47 H D ABG pCO2 at Pt Temp 36.6 ABG pO2 at Pt Temp 70.7 D ABG HCO3 26.0 ABG O2 Sat (Measured) 95.8 ABG O2 Content 8.9 L* ABG Base Excess 2.6 H Ventura Test Positive O2 Delivery Device Vent Oxygen Flow Rate 35 Vent Mode A/c Vent Rate 15 Mechanical Rate Yes PEEP 5.0 Pressure Support Vent 350 Sodium Potassium Chloride Carbon Dioxide Anion Gap BUN Creatinine Creat Clearance w eGFR Random Glucose Lactic Acid Calcium Magnesium Cancelled Total Bilirubin AST ALT Alkaline Phosphatase Total Protein Albumin HCV Quantitation HCV RNA log copies/mL Crossmatch Problem List - Problems (1) Anemia Code(s): D64.9 - ANEMIA, UNSPECIFIED Qualifiers: Other causes of anemia: chronic disease, kidney (2) Cardiopulmonary arrest Code(s): I46.9 - CARDIAC ARREST, CAUSE UNSPECIFIED (3) DVT (deep venous thrombosis) Code(s): I82.409 - ACUTE EMBOLISM AND THOMBOS UNSP DEEP VN UNSP LOWER EXTREMITY (4) Dysphagia Code(s): R13.10 - DYSPHAGIA, UNSPECIFIED (5) ESRD (end stage renal disease) on dialysis Code(s): N18.6 - END STAGE RENAL DISEASE Z99.2 - DEPENDENCE ON RENAL DIALYSIS (6) Pneumonia Code(s): J18.9 - PNEUMONIA, UNSPECIFIED ORGANISM (7) Respiratory failure Code(s): J96.90 - RESPIRATORY FAILURE, UNSP, UNSP W HYPOXIA OR HYPERCAPNIA (8) Shock Code(s): R57.9 - SHOCK, UNSPECIFIED Assessment/Plan S/P Trach due to failure to wean s/p PEA Cardiopulmonary Arrest s/p Hypothermia Protocol Pneumonia S/P Septic Shock Pulmonary HTN Lactic Acidosis resolved ESRD on HD RLE distal DVT GI Bleed Thrombocytopenia Fever S/P Ex-lap due to SBO S/P J-tube placement - Pain control - Monitor off pressors - HD per renal - Feeds when ok with surgery - AEDs - spontaneous breathing trials once clinically improved - DVT/GI prophylaxis - monitor lytes,h+h - Normal transfusion thresholds Dr Gonzalez CCTime 35"
[2016-11-24] MEDS: HYDROmorphone HCL CARPU-JECT 2 MG/1 ML DISP.SYRIN IVPB PRN ×2 (12:34→20:47)
--- NOTE | 2016-11-24 12:34 | PN ---
Progress Note (short form) - Note Progress Note: POD#2 Pt with large bm/brown liquid Vital Signs Period Temp Pulse Resp BP Sys/Hodgson Pulse Ox Last 24 Hr 96.6 F-98.5 F 94-113 10-22 101-158/36-90 98-100 PE: GEN: Alert adn responsive Neck: trach in place and R IJ line ABD: soft, non-distended. Midline inc packing removed and without drainage. Feeding tube with serous drainage around opening(covered by ostomy bag to collect fluid) LUE: swelling. healing /robles wounds over fistula. CBC, BMP /03/17 08:05 03// 08:05 A/P: s/p exp lap with lysis of adhesions/SB resection/feeding erik ferrari. Spoke with Dr. Canales and recommend that the patient remain npo for the next several days. Will reassess early next week/sunday to advise when we may begin feeds. Monitor H&H, slight drop, transfuse as per the ICU team. Local wound care with dry dressing daily.
--- NOTE | 2016-11-24 13:48 | PATH ---
Surgical Pathology Report Patient Name: VINITA MOLINA [facility]. Rec. 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 Specimen(s) Received SMALL BOWEL Clinical History Failure to thrive Final Diagnosis SMALL BOWEL, SEGMENTAL RESECTION: TWO PORTIONS OF SMALL INTESTINE WITH EXTENSIVE SEROSAL ADHESIONS AND ASSOCIATED ACUTE AND CHRONIC INFLAMMATION. LONGER PORTION SHOWS A TRANSMURAL DEFECT WITH ASSOCIATED ACUTE HEMORRHAGE. SHORTER PORTION HAS GROSSLY NOTED SUTURE MATERIAL WITH APPARENT DISRUPTION OF WALL. Comment: Recommend correlation with clinical findings and follow up as clinically indicated. Electronically Signed Andreas Blackwood M.D. Gross Description Received in formalin, labeled "small bowel," are 2 portions of small bowel measuring 7.5 and 15.5 cm in length. The specimens display 2 stapled mucosal margins each and minimal attached fat. The longer portion of bowel displays a focal defect, consistent with a rupture site. The remaining serosa is pink-parks and smooth. The mucosa is parks with normal folds and focal submucosal edema. No mucosal masses are identified. The shorter portion of bowel displays focal suture material on the serosa. The mucosa is parks with normal folds and focal submucosal edema. No mucosal masses are identified. Bottom Painter sections are submitted in 12 cassettes as follows: 4-7-[id number] stapled mucosal margins from longer portion of bowel; 5-6-eaqtdxai from defect in longer portion of bowel; 2-2-xtwzarvqdl used equipment sales representative uninvolved mucosa from longer portion of bowel; 6-8-cvuivqspbagu stapled mucosal margins from shorter portion of bowel; 70-16-xxnhnhhu from area of suture material from shorter portion of bowel; 12-additional used equipment sales representative uninvolved mucosa from shorter portion of bowel. 11/23/2016 saudi11/23/2016
--- NOTE | 2016-11-24 14:27 | PN ---
Progress Note, Physician History of Present Illness: Pt seen and examined at bedside. She is awake and responds to commands. She remains in the ICU. - Current Medication List Current Medications: Active Medications Acetaminophen (Ofirmev Injection -) 700 mg IVPB Q6H PRN PRN Reason: FEVER Acetaminophen (Tylenol Oral Solution -) 650 mg NGT Q6H PRN PRN Reason: FEVER OR PAIN Albuterol Sulfate (Ventolin 0.083% Nebulizer Soln -) 1 amp NEB Q1H PRN PRN Reason: SHORT OF BREATH/WHEEZING Albuterol/Ipratropium (Duoneb -) 1 amp NEB TIDR MARIE Last Admin: 11/24/16 13:22 Dose: 1 amp Amino Acids (Prosource No Carb Liquid Pkt) 30 ml PO BID@0800,1730 [facility] Last Admin: 11/24/16 09:21 Dose: Not Given Bacitracin (Bacitracin -) 1 applic TP DAILY [facility] Last Admin: 11/24/16 09:24 Dose: 1 applic Calcitriol (Rocaltrol Liquid -) 0.25 mcg NGT DAILY [facility] Last Admin: 11/24/16 09:22 Dose: Not Given Fentanyl (Sublimaze Injection -) 25 mcg IVPUSH [id number] PRN PRN Reason: PAIN Stop: 11/25/16 22:05 Hydromorphone HCl (Dilaudid Injection -) 2 mg IVPB Q4H PRN PRN Reason: PAIN Stop: 11/25/16 10:12 Last Admin: 11/24/16 12:34 Dose: 2 mg Fentanyl 500 mcg/ Dextrose 100 mls @ 10 mls/hr IJ TITR MARIE PRN Reason: 50 MCG/HR Last Admin: 11/24/16 01:22 Dose: 10 mls/hr Norepinephrine Bitartrate 16, (000 mcg/ Dextrose) 500 mls @ 9.37 mls/hr IV TITR MARIE; 5 MCG/MIN PRN Reason: Protocol Last Admin: 11/24/16 01:21 Dose: Not Given Piperacillin Sod/Tazobactam Sod (Zosyn 2.25gm Ivpb (Pre-Docked)) 50 mls @ 100 mls/hr IVPB Q8H-IV MARIE PRN Reason: Protocol Last Admin: 11/24/16 09:21 Dose: 100 mls/hr Sodium Chloride (Normal Saline -) 1,000 mls @ 72 mls/hr IV ASDIR [facility] Last Admin: 11/23/16 13:45 Dose: 72 mls/hr Levetiracetam (Keppra Injection -) 500 mg IVPB BID [facility] Last Admin: 11/24/16 09:20 Dose: 500 mg Ondansetron HCl (Zofran Injection) 4 mg IVPB Q4H PRN PRN Reason: NAUSEA AND/OR VOMITING Pantoprazole Sodium (Protonix 40mg Ivpb (Pre-Docked)) 40 mg IVPB DAILY [facility] Last Admin: 11/24/16 09:20 Dose: 40 mg Potassium Phos/Sodium Phos (Phos-Nak Packet -) 1 packet PO DAILY [facility] Last Admin: 11/24/16 09:22 Dose: Not Given - Objective Vital Signs: Vital Signs Temperature 98 F 11/24/16 13:00 Pulse Rate 81 11/24/16 13:00 Respiratory Rate 19 11/24/16 14:13 Blood Pressure 115/43 11/24/16 13:00 O2 Sat by Pulse Oximetry (%) 98 11/24/16 09:40 Constitutional: Yes: Calm Eyes: Yes: Conjunctiva Clear Neck: Yes: Other (trache) Cardiovascular: Yes: S1, S2 Respiratory: Yes: Mechanically Ventilated Gastrointestinal: Yes: Soft, Other (dressing in place) Genitourinary: Yes: Incontinence Musculoskeletal: Yes: Muscle Weakness Edema: Yes Neurological: Yes: Other (awake) Labs: CBC, BMP 11/24/16 08:05 11/24/16 08:05 INR, PTT INR 1.95 (0.82-1.09) H D 11/23/16 01:00 Fibrinogen 279.0 mg/dL (238-498) 11/14/16 06:15 - ....Imaging Chest X-ray: Report Reviewed Problem List - Problems (1) Cardiopulmonary arrest Code(s): I46.9 - CARDIAC ARREST, CAUSE UNSPECIFIED (2) DVT (deep venous thrombosis) Code(s): I82.409 - ACUTE EMBOLISM AND THOMBOS UNSP DEEP VN UNSP LOWER EXTREMITY (3) ESRD (end stage renal disease) on dialysis Code(s): N18.6 - END STAGE RENAL DISEASE Z99.2 - DEPENDENCE ON RENAL DIALYSIS (4) HCV (hepatitis C virus) Code(s): B19.20 - UNSPECIFIED VIRAL HEPATITIS C WITHOUT HEPATIC COMA (5) Respiratory failure Code(s): J96.90 - RESPIRATORY FAILURE, UNSP, UNSP W HYPOXIA OR HYPERCAPNIA Assessment/Plan Current Medications Generic Name Dose Route Start Last Admin Trade Name Freq PRN Reason Stop Dose Admin Acetaminophen 700 mg 11/22/16 22:27 Ofirmev Injection - IVPB Q6H PRN FEVER Acetaminophen 650 mg 11/22/16 22:27 Tylenol Oral Solution - NGT Q6H PRN FEVER OR PAIN Albuterol Sulfate 1 amp 11/23/16 01:39 Ventolin 0.083% Nebulizer Soln - NEB Q1H PRN SHORT OF BREATH/WHEEZING Albuterol/Ipratropium 1 amp 11/23/16 06:00 11/24/16 13:22 Duoneb - NEB 1 amp TIDR MARIE Administration Amino Acids 30 ml 11/23/16 08:00 11/24/16 09:21 Prosource No Carb Liquid Pkt PO Not Given BID@0800,1730 MARIE Bacitracin 1 applic 11/23/16 10:00 11/24/16 09:24 Bacitracin - TP 1 applic DAILY MARIE Administration Calcitriol 0.25 mcg 11/23/16 10:00 11/24/16 09:22 Rocaltrol Liquid - NGT Not Given DAILY MARIE Fentanyl 25 mcg 11/22/16 22:04 Sublimaze Injection - IVPUSH 11/25/16 22:05 [id number] PRN PAIN Hydromorphone HCl 2 mg 11/24/16 10:13 11/24/16 12:34 Dilaudid Injection - IVPB 11/25/16 10:12 2 mg Q4H PRN Administration PAIN Fentanyl 500 mcg/ Dextrose 100 mls @ 10 mls/hr 11/23/16 00:30 11/24/16 01:22 IJ 10 mls/hr TITR MARIE Administration 50 MCG/HR Norepinephrine Bitartrate 16, 500 mls @ 9.37 mls/hr 11/23/16 00:45 11/24/16 01: 21 000 mcg/ Dextrose IV Not Given TITR MARIE Protocol 5 MCG/MIN Piperacillin Sod/Tazobactam Sod 50 mls @ 100 mls/hr 11/23/16 11:31 11/24/16 09: 21 Zosyn 2.25gm Ivpb (Pre-Docked) IVPB 100 mls/hr Q8H-IV MARIE Administration Protocol Sodium Chloride 1,000 mls @ 72 mls/hr 11/23/16 13:41 11/23/16 13:45 Normal Saline - IV 72 mls/hr ASDIR MARIE Administration Levetiracetam 500 mg 11/23/16 10:00 11/24/16 09:20 Keppra Injection - IVPB 500 mg BID MARIE Administration Ondansetron HCl 4 mg 11/22/16 22:27 Zofran Injection IVPB Q4H PRN NAUSEA AND/OR VOMITING Pantoprazole Sodium 40 mg 11/23/16 10:00 11/24/16 09:20 Protonix 40mg Ivpb (Pre-Docked) IVPB 40 mg DAILY MARIE Administration Potassium Phos/Sodium Phos 1 packet 11/23/16 10:00 11/24/16 09:22 Phos-Nak Packet - PO Not Given DAILY MARIE 11/13/16 cultures no growth to date 11/16/16 blood cultures negative to date Impression 1. ESRD 2. s/p cardiopulmonary arrest 3. acute respiratory failure 4. Pneumonia 5. DVT of right leg 6. S/P Seizure following the arrest 7. Right renal complex cyst > 5cms in diameter 8. Anemia 9. Thrombocytopenia 10. H/O HCV 11. GI bleed 12. s/p exploratory laparotomy, lysis of adhesions, small bowel resection, and feeding jejunostomy Plan - will arrange for HD in am - cont current meds - epogen for anemia - vent support, pulmonary on board - lactic acid improving - stop fluids and start clinimix until the feeding tube can be used - reviewed monitor - surgery input appreciated Dr Espino
[2016-11-24] MEDS ORDERED: MAGNESIUM SULF 50% (8.12 MEQ/2 ML-1 GM VIAL) IVPB ONE (14:45)
--- NOTE | 2016-11-24 15:05 | PN ---
Progress Note (short form) - Note Progress Note: NEUROLOGY FOLLOW-UP: Events reviewed and discussed wit Dr. Lr. Patient examined. Back in ICU after increased WBD (> 20 K) requiring IV antibiotics. Mg++= 1.4 mg% (11/23/16). No seizures on Levetiracetam EXAM: S/P Trache. + spontaneous respirations. Awake. Eyes open. Follows no commands Pupils reactive to light. Full EOM's to Doll's head. Corneals +/+ Decorticates on left to sternal pressure. Some Right arm movements. Areflexic. B/L Babinskis. IMP: 1. Severe, B/L cerebral dysfunction c/w anoxic injury. 2. Cannot exclude potentially treatable component such as hyperammonemic encephalopathy, hypomagnesemic, etc. SUGGEST: Pt is on 2 standing narcotics. Taper and D/C one and observe. (It is not at all certain that this patient is in pain.) Repeat ammonia levels and follow Mg++. Thank you very much, Tonny Campoverde MD
--- NOTE | 2016-11-24 15:21 | PN ---
Physical Exam: SUBJECTIVE: Patient seen and examined at bedside in the ICU. She's trached and on vent, opens eyes, tracks objects, does not follow command, moans and shakes her head. Per nurse, one bowel movement this AM and no acute event overnight. OBJECTIVE: Vent settings: AC, RR 15, TV 350, FiO2 35%, PEEP 5 Trached and on Vent On fentanyl 50mcg Central line (IJ) Day 2 Vital Signs Period Temp Pulse Resp BP Sys/Hodgson Pulse Ox Last 24 Hr 97 F-98.5 F 81-113 10-22 101-129/36-90 98-100 GENERAL: Trached and on vent, non-verbal, awake, alert, slightly agitated, does not follow command, responsive to pain stimuli, RASS +1. ENT: NG tube in place LUNGS: Decreased breath sounds HEART: tachycardic, normal S1, S2 without murmur, rub or gallop. ABDOMEN: Soft, grimace upon palpation, absent bowel sounds, J-tube in place draining pink color fluid. Dressings in place on surgical sites EXTREMITIES: SCDs ABG Results ABG pH 7.47 (7.35-7.45) H D 11/24/16 08:30 ABG pCO2 at Pt Temp 36.6 mmHg (35-45) 11/24/16 08:30 ABG pO2 at Pt Temp 70.7 mmHg (70-100) D 11/24/16 08:30 ABG HCO3 26.0 meq/L (22-26) 11/24/16 08:30 ABG O2 Sat (Measured) 95.8 % (90-98.9) 11/24/16 08:30 ABG O2 Content 8.9 % vol (15-22) L* 11/24/16 08:30 ABG Base Excess 2.6 meq/l (-2-2) H 11/24/16 08:30 CBCD WBC 9.1 K/mm3 (4.0-10.0) D 11/24/16 08:05 RBC 2.06 M/mm3 (3.60-5.2) L 11/24/16 08:05 Hgb 6.8 GM/dL (10.7-15.3) L* D 11/24/16 08:05 Hct 20.6 % (32.4-45.2) L 11/24/16 08:05 MCV 100.0 fl (80-96) H 11/24/16 08:05 MCHC 32.9 g/dl (32.0-36.0) 11/24/16 08:05 RDW 23.4 % (11.6-15.6) H 11/24/16 08:05 Plt Count 91 K/MM3 (134-434) L D 11/24/16 08:05 MPV 8.3 fl (7.5-11.1) 11/24/16 08:05 CMP Sodium 139 mmol/L (136-145) 11/24/16 08:05 Potassium 3.2 mmol/L (3.5-5.1) L 11/24/16 08:05 Chloride 102 mmol/L (98-107) 11/24/16 08:05 Carbon Dioxide 28 mmol/L (21-32) 11/24/16 08:05 Anion Gap 9 (8-16) 11/24/16 08:05 BUN 29 mg/dL (7-18) H D 11/24/16 08:05 Creatinine 2.2 mg/dL (0.55-1.02) H 11/24/16 08:05 Creat Clearance w eGFR 21.53 (>60) 11/24/16 08:05 Calcium 7.7 mg/dL (8.5-10.1) L 11/24/16 08:05 Total Bilirubin 0.8 mg/dL (0.2-1.0) 11/24/16 08:05 AST 40 U/L (15-37) H D 11/24/16 08:05 ALT 7 U/L (12-78) L 11/24/16 08:05 Alkaline Phosphatase 72 U/L (45-117) 11/24/16 08:05 Total Protein 5.1 g/dl (6.4-8.2) L 11/24/16 08:05 Albumin 1.3 g/dl (3.4-5.0) L 11/24/16 08:05 Intake & Output 11/21/16 11/22/16 11/23/16 11/24/16 23:59 23:59 23:59 23:59 Intake Total 1530 1900 2713 1092.8 Output Total 30 0 0 Balance 1530 1870 2713 1092.8 Weight 51.738 kg 51.738 kg 50.3 kg 51.3 kg Active Medications Generic Name Dose Route Start Last Admin Trade Name Freq PRN Reason Stop Dose Admin Acetaminophen 700 mg 11/22/16 22:27 Ofirmev Injection - IVPB Q6H PRN FEVER Acetaminophen 650 mg 11/22/16 22:27 Tylenol Oral Solution - NGT Q6H PRN FEVER OR PAIN Albuterol Sulfate 1 amp 11/23/16 01:39 Ventolin 0.083% Nebulizer Soln - NEB Q1H PRN SHORT OF BREATH/WHEEZING Albuterol/Ipratropium 1 amp 11/23/16 06:00 11/24/16 13:22 Duoneb - NEB 1 amp TIDR MARIE Administration Amino Acids 30 ml 11/23/16 08:00 11/24/16 09:21 Prosource No Carb Liquid Pkt PO Not Given BID@0800,1730 MARIE Bacitracin 1 applic 11/23/16 10:00 11/24/16 09:24 Bacitracin - TP 1 applic DAILY MARIE Administration Calcitriol 0.25 mcg 11/23/16 10:00 11/24/16 09:22 Rocaltrol Liquid - NGT Not Given DAILY MARIE Epoetin Cirilo 10,000 units 11/25/16 14:42 Epogen - IVPUSH 11/25/16 14:43 ONCE ONE Fat Emulsion Intravenous 250 ml 11/24/16 22:00 Intralipid - IV DAILY@2200 MARIE Fentanyl 25 mcg 11/22/16 22:04 Sublimaze Injection - IVPUSH 11/25/16 22:05 [id number] PRN PAIN Hydromorphone HCl 2 mg 11/24/16 10:13 11/24/16 12:34 Dilaudid Injection - IVPB 11/25/16 10:12 2 mg Q4H PRN Administration PAIN Fentanyl 500 mcg/ Dextrose 100 mls @ 10 mls/hr 11/23/16 00:30 11/24/16 01:22 IJ 10 mls/hr TITR MARIE Administration 50 MCG/HR Norepinephrine Bitartrate 16, 500 mls @ 9.37 mls/hr 11/23/16 00:45 11/24/16 01: 21 000 mcg/ Dextrose IV Not Given TITR MARIE Protocol 5 MCG/MIN Piperacillin Sod/Tazobactam Sod 50 mls @ 100 mls/hr 11/23/16 11:31 11/24/16 09: 21 Zosyn 2.25gm Ivpb (Pre-Docked) IVPB 100 mls/hr Q8H-IV MARIE Administration Protocol Potassium Chloride 100 mls @ 100 mls/hr 11/24/16 14:45 Potassium Chloride 10 Meq Premix Ivpb - IVPB 11/24/16 15:44 Q60M MARIE Multivitamins/Minerals 10 ml/ 1,510 mls @ 42 mls/hr 11/24/16 14:45 Amino Acids IV 11/25/16 02:44 Q12H MARIE Levetiracetam 500 mg 11/23/16 10:00 11/24/16 09:20 Keppra Injection - IVPB 500 mg BID MARIE Administration Magnesium Sulfate 2 gm 11/24/16 14:45 Magnesium Sulfate IVPB 11/24/16 14:46 ONCE ONE Ondansetron HCl 4 mg 11/22/16 22:27 Zofran Injection IVPB Q4H PRN NAUSEA AND/OR VOMITING Pantoprazole Sodium 40 mg 11/23/16 10:00 11/24/16 09:20 Protonix 40mg Ivpb (Pre-Docked) IVPB 40 mg DAILY MARIE Administration Potassium Phos/Sodium Phos 1 packet 11/23/16 10:00 11/24/16 09:22 Phos-Nak Packet - PO Not Given DAILY MARIE Imaging CXR 11/24: New left basilar opacity with effacement of the left diaphragm blunting of the left costophrenic angle: Atelectasis likely associated with left pleural effusion ASSESSMENT/PLAN: 80 yo F h/o HTN, GIB, chronic anemia 2/2 ESRD on HD, Hep C admitted to the hospital originally for cardiac arrest on 10/22. She's now trached due to respiratory failure requiring and sustained significant anoxic brain injury and recovered from sepsis. Patient was readmitted to the ICU s/p J-tube placement and exploratory lap for adhesion and small bowel resection. GI: s/p J-tube placement and exploratory lap - POD #2 - Routine wound care - Absent bowel sounds and movement - Dilaudid 2mg PRN for pain - NPO per surgery Pulm: Chronic respiratory insufficiency, trached and on vent - Trached on vent: see settings above - Maintain O2 Sat. > 88% - Nebulizers PRN - Daily ABG and CXR ID: Severe sepsis - Lactic acid trending down - WBC wnl today - On zosyn day 2, flagyl d/c Renal/: ESRD on HD - Will HD in AM today - Start clinimix and stop fluids Heme: Chronic anemia 2/2 ESRD - HGB stable at baseline - On epogen - Will transfuse 1 unit PRBC today * No blood transfusion on HD - Recheck H&H Cardiac: S/p cardiac arrest and hypothermic protocol - Not on pressor maintain MAP > 65% - Hold all anti-BP meds Neuro: Seizure disorder - Cont. anti-epileptic medications - Cont. to monitor neuro function FEN - No IVF - Cont. to monitor lytes after HD - NPO, on clinimix Prophylaxis - DVT: indicated due to h/o GIB and s/p surgery - GI: on PPI Disposition - Cont. to monitor in ICU Code status - Full code Visit type - Emergency Visit Emergency Visit: No - New Patient This patient is new to me today: No - Critical Care Critical Care patient: Yes Total Critical Care Time (in minutes): 45 Critical Care Statement: The care of this patient involved high complexity decision making to prevent further life threatening deterioration of the patient 's condition and/or to evalute & treat vital organ system(s) failure or risk of failure.
[2016-11-24] MEDS ORDERED: KCL 10 MEQ IVPB 100 ML IVPB SCH (16:30)
[2016-11-24] MEDS ORDERED: MULTIVIT INJECTION ADULT 10 ML in AMINO ACIDS 4.25%/D5W 1,000 ML IV ONE (17:45)
[2016-11-24] MEDS: SODIUM CHLORIDE 1,000 ML IV SCH (20:48)
[2016-11-24 21:00] LABS: MCH 33.5 pg (25.7-33.7); MCHC 34.1 g/dl (32.0-36.0); MEAN CELL VOLUME 98.4 fl (80-96); MEAN PLT VOLUME 9.2 fl (7.5-11.1); PLATELET COUNT 81 K/MM3 (134-434); RDW 20.3 % (11.6-15.6); WHITE BLOOD COUNT 10.6 K/mm3 (4.0-10.0)
[2016-11-24] MEDS: FAT EMULSIONS 20% 250 ML PREMIX INFUS.BAG IV SCH (21:42)
[2016-11-25] MEDS: FENTANYL INJECTION 500 MCG in DEXTROSE 5%-WATER - 90 ML IJ SCH ×2 (00:30→20:00)
[2016-11-25] MEDS: NOREPINEPHRINE BITARTRATE 16,000 MCG in DEXTROSE 5%-WATER - 484 ML IV SCH (00:45)
[2016-11-25] MEDS: PIPERACILLIN/TAZOB 2.25 GM 50 ML IVPB SCH (02:00)
[2016-11-25] MEDS: HYDROmorphone HCL CARPU-JECT 2 MG/1 ML DISP.SYRIN IVPB PRN (06:00)
[2016-11-25 06:51] LABS: ALBUMIN 1.2 g/dl (3.4-5.0); BILIRUBIN,TOTAL 0.7 mg/dL (0.2-1.0); CALCIUM 7.2 mg/dL (8.5-10.1); CREATININE 2.5 mg/dL (0.55-1.02); MAGNESIUM 1.8 mg/dL (1.8-2.4); TOT PROT 5.2 g/dl (6.4-8.2)
[2016-11-25] MEDS: ALBUTEROL SO4 2.5/IPRATROPIUM 0.5 INH SOL 3 ML VIAL.NEB. NEB SCH ×3 (06:53→22:59)
--- NOTE | 2016-11-25 07:15 | PN ---
Progress Note, Physician Chief Complaint: ID Post op day 4 Lap Attempts to communicate Has developed a decubitus ulcer sacral area - Current Medication List Current Medications: Active Medications Acetaminophen (Ofirmev Injection -) 700 mg IVPB Q6H PRN PRN Reason: FEVER Acetaminophen (Tylenol Oral Solution -) 650 mg NGT Q6H PRN PRN Reason: FEVER OR PAIN Albuterol Sulfate (Ventolin 0.083% Nebulizer Soln -) 1 amp NEB Q1H PRN PRN Reason: SHORT OF BREATH/WHEEZING Albuterol/Ipratropium (Duoneb -) 1 amp NEB TIDR [facility] Last Admin: 11/25/16 06:53 Dose: 1 amp Amino Acids (Prosource No Carb Liquid Pkt) 30 ml PO BID@0800,1730 [facility] Last Admin: 11/24/16 17:27 Dose: Not Given Bacitracin (Bacitracin -) 1 applic TP DAILY [facility] Last Admin: 11/24/16 09:24 Dose: 1 applic Calcitriol (Rocaltrol Liquid -) 0.25 mcg NGT DAILY [facility] Last Admin: 11/24/16 09:22 Dose: Not Given Epoetin Cirilo (Procrit -) 10,000 unit IVPUSH ONCE ONE Stop: 11/25/16 14:43 Fat Emulsion Intravenous (Intralipid -) 250 ml IV DAILY@2200 [facility] Last Admin: 11/24/16 21:42 Dose: 250 ml Hydromorphone HCl (Dilaudid Injection -) 2 mg IVPB Q4H PRN PRN Reason: PAIN Stop: 11/25/16 10:12 Last Admin: 11/25/16 06:00 Dose: 2 mg Fentanyl 500 mcg/ Dextrose 100 mls @ 10 mls/hr IJ TITR MARIE PRN Reason: 50 MCG/HR Last Admin: 11/25/16 00:30 Dose: 10 mls/hr Norepinephrine Bitartrate 16, (000 mcg/ Dextrose) 500 mls @ 9.37 mls/hr IV TITR MARIE; 5 MCG/MIN PRN Reason: Protocol Last Admin: 11/25/16 00:45 Dose: Not Given Piperacillin Sod/Tazobactam Sod (Zosyn 2.25gm Ivpb (Pre-Docked)) 50 mls @ 100 mls/hr IVPB Q8H-IV MARIE PRN Reason: Protocol Last Admin: 11/25/16 02:00 Dose: 100 mls/hr Multivitamins/Minerals 10 ml/ (Amino Acids) 1,010 mls @ 42 mls/hr IV ONCE ONE Stop: 11/25/16 17:47 Last Admin: 11/24/16 18:42 Dose: 42 mls/hr Levetiracetam (Keppra Injection -) 500 mg IVPB BID [facility] Last Admin: 11/24/16 21:43 Dose: 500 mg Ondansetron HCl (Zofran Injection) 4 mg IVPB Q4H PRN PRN Reason: NAUSEA AND/OR VOMITING Pantoprazole Sodium (Protonix 40mg Ivpb (Pre-Docked)) 40 mg IVPB DAILY [facility] Last Admin: 11/24/16 09:20 Dose: 40 mg Potassium Phos/Sodium Phos (Phos-Nak Packet -) 1 packet PO DAILY [facility] Last Admin: 11/24/16 09:22 Dose: Not Given - Objective Vital Signs: Vital Signs Temperature 97.4 F L 11/25/16 06:00 Pulse Rate 80 11/25/16 06:00 Respiratory Rate 16 11/25/16 06:00 Blood Pressure 139/52 11/25/16 06:00 O2 Sat by Pulse Oximetry (%) 95 11/24/16 21:00 Constitutional: Yes: Well Nourished, No Distress Neck: Yes: Other (Trach and central line) Cardiovascular: Yes: Regular Rate and Rhythm, S1, S2 Respiratory: Yes: Rhonchi. No: Wheezes Gastrointestinal: Yes: Soft, Other (post op Incision clean). No: Tenderness Edema: No Labs: CBC, BMP 11/24/16 20:30 11/25/16 05:45 INR, PTT INR 1.95 (0.82-1.09) H D 11/23/16 01:00 Fibrinogen 279.0 mg/dL (238-498) 11/14/16 06:15 Problem List - Problems (1) Cardiopulmonary arrest Code(s): I46.9 - CARDIAC ARREST, CAUSE UNSPECIFIED (2) ESRD (end stage renal disease) on dialysis Code(s): N18.6 - END STAGE RENAL DISEASE Z99.2 - DEPENDENCE ON RENAL DIALYSIS (3) Pneumonia Code(s): J18.9 - PNEUMONIA, UNSPECIFIED ORGANISM (4) Respiratory failure Code(s): J96.90 - RESPIRATORY FAILURE, UNSP, UNSP W HYPOXIA OR HYPERCAPNIA (5) Status post exploratory laparotomy Code(s): Z98.89 - OTHER SPECIFIED POSTPROCEDURAL STATES * DO NOT USE * Assessment/Plan Microbiology 11/23/16 22:00 Sputum - Endotrachea Suction/Ventilator Gram Stain - Final 11/23/16 11:15 Blood - Post-Dialysis Blood Culture - Preliminary NO GROWTH OBTAINED AFTER 24 HOURS, INCUBATION TO CONTINUE FOR 4 DAYS. Laboratory Tests 11/20/16 11/20/16 11/20/16 10:00 12:15 13:00 WBC Hgb Plt Count ABG pH ABG pO2 at Pt Temp Oxygen Flow Rate Hepatitis C Antibody >11.0 H HCV Quantitation [id number] HIV 1&2 Antibody Screen Negative HIV P24 Antigen Negative 11/24/16 11/24/16 08:30 20:30 WBC 10.6 H Hgb 8.2 L D Plt Count 81 L ABG pH 7.47 H D ABG pO2 at Pt Temp 70.7 D Oxygen Flow Rate 35 Hepatitis C Antibody HCV Quantitation HIV 1&2 Antibody Screen HIV P24 Antigen Assessment Post cardiac arrest Day 4 post op lap for lysis of adhesions placement of J tube ESRD dialysis today Hepatitis C ( nothing to do) Sepsis / Fever long course of antibiotics New decubitus ulcer Plan Going to stop antibiotic and observe Surgical f/u Dialysis today Critical care time spent 39min Helen ZHAO Decubitus care
[2016-11-25 07:35] LABS: ARTERIAL BLD GAS O2 SATURATION 99.3 % (90-98.9); ARTERIAL BLOOD GAS BASE EXCESS -0.5 meq/l (-2-2); ARTERIAL BLOOD GAS HCO3 23.3 meq/L (22-26); ARTERIAL BLOOD GAS pH 7.41 (7.35-7.45)
[2016-11-25 07:38] LABS: ALLENS TEST POSITIVE; ART PUNCT SITE RIGHT RADIAL; LPM/O2% 35%; MECH. VENT. ESPRIT; PT. ON O2? YES; TYPE OF O2 MEC.VENT
[2016-11-25 07:39] LABS: VENT RATE 15; VT/PRESS 350
[2016-11-25 08:22] LABS: BASOPHIL 0.4 % (0-2.0); EOSINOPHIL 0.9 % (0-4.5); MCH 34.5 pg (25.7-33.7); MCHC 34.7 g/dl (32.0-36.0); MEAN CELL VOLUME 99.5 fl (80-96); MEAN PLT VOLUME 9.2 fl (7.5-11.1); NEUTROPHILS 84.1 % (42.8-82.8); PLATELET COUNT 87 K/MM3 (134-434); RDW 21.5 % (11.6-15.6); WHITE BLOOD COUNT 12.9 K/mm3 (4.0-10.0)
[2016-11-25] MEDS: PANTOPRAZOLE SODIUM 40 MG/100 ML PRE-DOCKED IVPB SCH (09:51)
[2016-11-25] MEDS: levETIRAcetam 500 MG/5 ML INJECTION VIAL IVPB SCH ×2 (09:51→21:21)
--- NOTE | 2016-11-25 09:54 | PN ---
Progress Note (short form) - Note Progress Note: RENAL Remains in icu appears comfortable will be dialyzed today Last Vital Signs Temp Pulse Resp BP Pulse Ox 97.4 F L 90 16 136/61 96 11/25/16 06:00 11/25/16 08:00 11/25/16 08:00 11/25/16 08:00 11/25/16 09:00 has a trach lungs clear cvs s1s2 rr abd soft ext no edema, LUE avf pulsatile neuro awake CBC, BMP 11/25/16 05:45 11/25/16 05:45 Current Medications Generic Name Dose Route Start Last Admin Trade Name Freq PRN Reason Stop Dose Admin Acetaminophen 700 mg 11/22/16 22:27 Ofirmev Injection - IVPB Q6H PRN FEVER Acetaminophen 650 mg 11/22/16 22:27 Tylenol Oral Solution - NGT Q6H PRN FEVER OR PAIN Albuterol Sulfate 1 amp 11/23/16 01:39 Ventolin 0.083% Nebulizer Soln - NEB Q1H PRN SHORT OF BREATH/WHEEZING Albuterol/Ipratropium 1 amp 11/23/16 06:00 11/25/16 06:53 Duoneb - NEB 1 amp TIDR MARIE Administration Amino Acids 30 ml 11/23/16 08:00 11/24/16 17:27 Prosource No Carb Liquid Pkt PO Not Given BID@0800,1730 MARIE Bacitracin 1 applic 11/23/16 10:00 11/24/16 09:24 Bacitracin - TP 1 applic DAILY MARIE Administration Calcitriol 0.25 mcg 11/23/16 10:00 11/24/16 09:22 Rocaltrol Liquid - NGT Not Given DAILY MARIE Epoetin Cirilo 10,000 unit 11/25/16 10:00 Procrit - IVPUSH 11/25/16 10:01 ONCE ONE Fat Emulsion Intravenous 250 ml 11/24/16 22:00 11/24/16 21:42 Intralipid - IV 250 ml DAILY@2200 MARIE Administration Hydromorphone HCl 2 mg 11/24/16 10:13 11/25/16 06:00 Dilaudid Injection - IVPB 11/25/16 10:12 2 mg Q4H PRN Administration PAIN Fentanyl 500 mcg/ Dextrose 100 mls @ 10 mls/hr 11/23/16 00:30 11/25/16 00:30 IJ 10 mls/hr TITR MARIE Administration 50 MCG/HR Norepinephrine Bitartrate 16, 500 mls @ 9.37 mls/hr 11/23/16 00:45 11/25/16 00: 45 000 mcg/ Dextrose IV Not Given TITR MARIE Protocol 5 MCG/MIN Multivitamins/Minerals 10 ml/ 1,010 mls @ 42 mls/hr 11/24/16 17:45 11/24/16 18: 42 Amino Acids IV 11/25/16 17:47 42 mls/hr ONCE ONE Administration Levetiracetam 500 mg 11/23/16 10:00 11/25/16 09:51 Keppra Injection - IVPB 500 mg BID MARIE Administration Ondansetron HCl 4 mg 11/22/16 22:27 Zofran Injection IVPB Q4H PRN NAUSEA AND/OR VOMITING Pantoprazole Sodium 40 mg 11/23/16 10:00 11/25/16 09:51 Protonix 40mg Ivpb (Pre-Docked) IVPB 40 mg DAILY MARIE Administration Potassium Phos/Sodium Phos 1 packet 11/23/16 10:00 11/24/16 09:22 Phos-Nak Packet - PO Not Given DAILY MARIE Impression 1. ESRD 2. s/p cardiopulmonary arrest 3. acute respiratory failure 4. Pneumonia 5. DVT of right leg 6. S/P Seizure following the arrest 7. Right renal complex cyst > 5cms in diameter 8. Anemia 9. Thrombocytopenia 10. H/O HCV 11. active GI bleed Plan continue phosphate replacement increase calcitriol does not need to have any procedure on HD access yet continue AED for hd today MV
[2016-11-25] MEDS ORDERED: EPOETIN ALFA 10,000 UNIT/1 ML VIAL IVPUSH ONE (10:00)
--- NOTE | 2016-11-25 10:02 | PN ---
Progress Note (short form) - Note Progress Note: Patient seen and examined in the ICU. Awake and responsive. Appears more comfortable today. Remains off pressors. Persistent drainage reported. AC Mode of vent. Started on Clinimix. CXR: Some increased bilateral infiltrates (likely congestion) Intake & Output 11/22/16 11/23/16 11/24/16 11/25/16 23:59 23:59 23:59 23:59 Intake Total 1900 2713 2312.8 50 Output Total 30 0 0 0 Balance 1870 2713 2312.8 50 Weight 114 lb 1 oz 110 lb 14.28 oz 113 lb 1.554 oz 114 lb 1.6 oz Last Vital Signs Temp Pulse Resp BP Pulse Ox 97.4 F L 90 16 136/61 96 11/25/16 06:00 11/25/16 08:00 11/25/16 08:00 11/25/16 08:00 11/25/16 09:00 Active Medications Acetaminophen (Ofirmev Injection -) 700 mg IVPB Q6H PRN PRN Reason: FEVER Acetaminophen (Tylenol Oral Solution -) 650 mg NGT Q6H PRN PRN Reason: FEVER OR PAIN Albuterol Sulfate (Ventolin 0.083% Nebulizer Soln -) 1 amp NEB Q1H PRN PRN Reason: SHORT OF BREATH/WHEEZING Albuterol/Ipratropium (Duoneb -) 1 amp NEB TIDR [facility] Last Admin: 11/25/16 06:53 Dose: 1 amp Amino Acids (Prosource No Carb Liquid Pkt) 30 ml PO BID@0800,1730 [facility] Last Admin: 11/24/16 17:27 Dose: Not Given Bacitracin (Bacitracin -) 1 applic TP DAILY [facility] Last Admin: 11/24/16 09:24 Dose: 1 applic Calcitriol (Rocaltrol Liquid -) 0.5 mcg NGT DAILY [facility] Epoetin Cirilo (Procrit -) 10,000 unit IVPUSH ONCE ONE Stop: 11/25/16 10:01 Fat Emulsion Intravenous (Intralipid -) 250 ml IV DAILY@2200 [facility] Last Admin: 11/24/16 21:42 Dose: 250 ml Hydromorphone HCl (Dilaudid Injection -) 2 mg IVPB Q4H PRN PRN Reason: PAIN Stop: 11/25/16 10:12 Last Admin: 11/25/16 06:00 Dose: 2 mg Fentanyl 500 mcg/ Dextrose 100 mls @ 10 mls/hr IJ TITR MARIE PRN Reason: 50 MCG/HR Last Admin: 11/25/16 00:30 Dose: 10 mls/hr Norepinephrine Bitartrate 16, (000 mcg/ Dextrose) 500 mls @ 9.37 mls/hr IV TITR MARIE; 5 MCG/MIN PRN Reason: Protocol Last Admin: 11/25/16 00:45 Dose: Not Given Multivitamins/Minerals 10 ml/ (Amino Acids) 1,010 mls @ 42 mls/hr IV ONCE ONE Stop: 11/25/16 17:47 Last Admin: 11/24/16 18:42 Dose: 42 mls/hr Levetiracetam (Keppra Injection -) 500 mg IVPB BID [facility] Last Admin: 11/25/16 09:51 Dose: 500 mg Ondansetron HCl (Zofran Injection) 4 mg IVPB Q4H PRN PRN Reason: NAUSEA AND/OR VOMITING Pantoprazole Sodium (Protonix 40mg Ivpb (Pre-Docked)) 40 mg IVPB DAILY [facility] Last Admin: 11/25/16 09:51 Dose: 40 mg Potassium Phos/Sodium Phos (Phos-Nak Packet -) 1 packet PO DAILY [facility] Last Admin: 11/24/16 09:22 Dose: Not Given Constitutional: Yes: Awake on AC Mode of vent Eyes: Yes: WNL HENT: Yes: WNL Neck: Yes: Supple (trach) Cardiovascular: Yes: Regular Rate and Rhythm, S1, S2 Respiratory: Yes: Rhonchi (few rhonchi) Gastrointestinal: Yes: post-op bandages intact, intact J-tube with some local leak/discharge Extremities: Yes: WNL Edema: Yes Laboratory Results - last 24 hr 11/21/16 11/24/16 11/24/16 16:15 11:00 20:30 WBC 10.6 H RBC 2.44 L Hgb 8.2 L D Hct 24.0 L D MCV 98.4 H MCHC 34.1 RDW 20.3 H D Plt Count 81 L MPV 9.2 D Neutrophils % Lymphocytes % Monocytes % Eosinophils % Basophils % Puncture Site ABG pH ABG pCO2 at Pt Temp ABG pO2 at Pt Temp ABG HCO3 ABG O2 Sat (Measured) ABG O2 Content ABG Base Excess Ventura Test O2 Delivery Device Oxygen Flow Rate Vent Mode Vent Rate Mechanical Rate PEEP Pressure Support Vent Sodium Potassium Chloride Carbon Dioxide Anion Gap BUN Creatinine Creat Clearance w eGFR Random Glucose Lactic Acid Calcium Phosphorus Magnesium Total Bilirubin AST ALT Alkaline Phosphatase Ammonia 14.8 Total Protein Albumin Blood Type B POSITIVE Antibody Screen Positive H Crossmatch See Detail 11/25/16 11/25/16 11/25/16 05:45 05:45 05:45 WBC RBC Hgb Hct MCV MCHC RDW Plt Count MPV Neutrophils % Lymphocytes % Monocytes % Eosinophils % Basophils % Puncture Site ABG pH ABG pCO2 at Pt Temp ABG pO2 at Pt Temp ABG HCO3 ABG O2 Sat (Measured) ABG O2 Content ABG Base Excess Ventura Test O2 Delivery Device Oxygen Flow Rate Vent Mode Vent Rate Mechanical Rate PEEP Pressure Support Vent Sodium 139 Potassium 3.3 L Chloride 101 Carbon Dioxide 24 Anion Gap 14 BUN 32 H Creatinine 2.5 H Creat Clearance w eGFR 18.58 Random Glucose 98 D Lactic Acid 1.299 Calcium 7.2 L Phosphorus 2.0 L D Magnesium 1.8 D Total Bilirubin 0.7 AST 34 ALT 10 L D Alkaline Phosphatase 83 Ammonia 31.07 Total Protein 5.2 L Albumin 1.2 L Blood Type Antibody Screen Crossmatch 11/25/16 11/25/16 05:45 07:20 WBC 12.9 H RBC 2.59 L Hgb 8.9 L Hct 25.8 L MCV 99.5 H MCHC 34.7 RDW 21.5 H Plt Count 87 L MPV 9.2 Neutrophils % 84.1 H Lymphocytes % 8.6 D Monocytes % 6.0 Eosinophils % 0.9 D Basophils % 0.4 D Puncture Site Right radial ABG pH 7.41 ABG pCO2 at Pt Temp 37.1 ABG pO2 at Pt Temp 126.0 H D ABG HCO3 23.3 ABG O2 Sat (Measured) 99.3 H ABG O2 Content 12.4 L ABG Base Excess -0.5 Ventura Test Positive O2 Delivery Device Mec.vent Oxygen Flow Rate 35% Vent Mode A/c Vent Rate 15 Mechanical Rate Esprit PEEP 5.0 Pressure Support Vent 350 Sodium Potassium Chloride Carbon Dioxide Anion Gap BUN Creatinine Creat Clearance w eGFR Random Glucose Lactic Acid Calcium Phosphorus Magnesium Total Bilirubin AST ALT Alkaline Phosphatase Ammonia Total Protein Albumin Blood Type Antibody Screen Crossmatch Problem List - Problems (1) Anemia Code(s): D64.9 - ANEMIA, UNSPECIFIED Qualifiers: Other causes of anemia: chronic disease, kidney (2) Cardiopulmonary arrest Code(s): I46.9 - CARDIAC ARREST, CAUSE UNSPECIFIED (3) DVT (deep venous thrombosis) Code(s): I82.409 - ACUTE EMBOLISM AND THOMBOS UNSP DEEP VN UNSP LOWER EXTREMITY (4) Dysphagia Code(s): R13.10 - DYSPHAGIA, UNSPECIFIED (5) ESRD (end stage renal disease) on dialysis Code(s): N18.6 - END STAGE RENAL DISEASE Z99.2 - DEPENDENCE ON RENAL DIALYSIS (6) Pneumonia Code(s): J18.9 - PNEUMONIA, UNSPECIFIED ORGANISM (7) Respiratory failure Code(s): J96.90 - RESPIRATORY FAILURE, UNSP, UNSP W HYPOXIA OR HYPERCAPNIA (8) Shock Code(s): R57.9 - SHOCK, UNSPECIFIED Assessment/Plan S/P Trach due to failure to wean s/p PEA Cardiopulmonary Arrest s/p Hypothermia Protocol Pneumonia S/P Septic Shock Pulmonary HTN Lactic Acidosis resolved ESRD on HD RLE distal DVT GI Bleed Thrombocytopenia Fever S/P Ex-lap due to SBO S/P J-tube placement - Noted patient was started on Clinimix - Pain control - Monitor off pressors - HD per renal - Feeds when ok with surgery - AEDs - spontaneous breathing trials once clinically improved - DVT/GI prophylaxis - monitor lytes,h+h - Normal transfusion thresholds Dr Gonzalez CCTime 35"
[2016-11-25] MEDS: CALCITRIOL 1 MCG/ML BOT NGT SCH (11:16)
[2016-11-25] MEDS: NAPH,MB-DB/K PH,MBDB POWDER PACKET PO SCH (11:16)
[2016-11-25] MEDS: AMINO ACIDS/PROTEIN HYDROLYS 30 ML LIQUID.PKT PO SCH (11:16)
[2016-11-25] MEDS: BACITRACIN 30 GM TUBE TOPICAL OINTMENT TP SCH (16:36)
--- NOTE | 2016-11-25 18:22 | PN ---
Progress Note, Physician Chief Complaint: ASLEEP, HD IN PROGRESS WHEN SEEN NO ACTIVE DISTRESS AT THIS TIME - Current Medication List Current Medications: Active Medications Acetaminophen (Ofirmev Injection -) 700 mg IVPB Q6H PRN PRN Reason: FEVER Acetaminophen (Tylenol Oral Solution -) 650 mg NGT Q6H PRN PRN Reason: FEVER OR PAIN Albuterol Sulfate (Ventolin 0.083% Nebulizer Soln -) 1 amp NEB Q1H PRN PRN Reason: SHORT OF BREATH/WHEEZING Albuterol/Ipratropium (Duoneb -) 1 amp NEB TIDR [facility] Last Admin: 11/25/16 14:05 Dose: 1 amp Amino Acids (Prosource No Carb Liquid Pkt) 30 ml PO BID@0800,1730 [facility] Last Admin: 11/25/16 11:16 Dose: Not Given Bacitracin (Bacitracin -) 1 applic TP DAILY [facility] Last Admin: 11/25/16 16:36 Dose: 1 applic Calcitriol (Rocaltrol Liquid -) 0.5 mcg NGT DAILY [facility] Last Admin: 11/25/16 11:16 Dose: Not Given Fat Emulsion Intravenous (Intralipid -) 250 ml IV DAILY@2200 [facility] Last Admin: 11/24/16 21:42 Dose: 250 ml Fentanyl 500 mcg/ Dextrose 100 mls @ 10 mls/hr IJ TITR MARIE PRN Reason: 50 MCG/HR Last Admin: 11/25/16 00:30 Dose: 10 mls/hr Levetiracetam (Keppra Injection -) 500 mg IVPB BID [facility] Last Admin: 11/25/16 09:51 Dose: 500 mg Ondansetron HCl (Zofran Injection) 4 mg IVPB Q4H PRN PRN Reason: NAUSEA AND/OR VOMITING Pantoprazole Sodium (Protonix 40mg Ivpb (Pre-Docked)) 40 mg IVPB DAILY [facility] Last Admin: 11/25/16 09:51 Dose: 40 mg Potassium Phos/Sodium Phos (Phos-Nak Packet -) 1 packet PO DAILY [facility] Last Admin: 11/25/16 11:16 Dose: Not Given - Objective Vital Signs: Vital Signs Temperature 97.3 F L 11/25/16 14:00 Pulse Rate 88 11/25/16 18:00 Respiratory Rate 16 11/25/16 18:00 Blood Pressure 124/54 11/25/16 18:00 O2 Sat by Pulse Oximetry (%) 95 11/25/16 10:00 Constitutional: Yes: No Distress Eyes: Yes: WNL HENT: Yes: WNL Neck: Yes: WNL Cardiovascular: Yes: WNL Respiratory: Yes: Mechanically Ventilated Gastrointestinal: Yes: Tenderness Musculoskeletal: Yes: Muscle Weakness Extremities: Yes: Other (LEFT ARM GRAFT RED/ERYTHEMA/FUNCTIONING) Edema: Yes Edema: LUE: Trace, RUE: Trace, LLE: Trace, RLE: Trace Peripheral Pulses WNL: Yes Integumentary: Yes: Erythema, Skin Tear Wound/Incision: Yes: Open to air, Excoriated Neurological: Yes: Pre-Existing Deficit, Unsteady Gait, Weakness ...Motor Strength: LLE, RLE Labs: CBC, BMP 11/25/16 05:45 11/25/16 05:45 INR, PTT INR 1.95 (0.82-1.09) H D 11/23/16 01:00 Fibrinogen 279.0 mg/dL (238-498) 11/14/16 06:15 Problem List - Problems (1) Cardiopulmonary arrest Code(s): I46.9 - CARDIAC ARREST, CAUSE UNSPECIFIED (2) DVT (deep venous thrombosis) Code(s): I82.409 - ACUTE EMBOLISM AND THOMBOS UNSP DEEP VN UNSP LOWER EXTREMITY (3) ESRD (end stage renal disease) on dialysis Code(s): N18.6 - END STAGE RENAL DISEASE Z99.2 - DEPENDENCE ON RENAL DIALYSIS (4) HCV (hepatitis C virus) Code(s): B19.20 - UNSPECIFIED VIRAL HEPATITIS C WITHOUT HEPATIC COMA (5) Metabolic encephalopathy Code(s): G93.41 - METABOLIC ENCEPHALOPATHY (6) Pneumonia Code(s): J18.9 - PNEUMONIA, UNSPECIFIED ORGANISM (7) Respiratory failure Code(s): J96.90 - RESPIRATORY FAILURE, UNSP, UNSP W HYPOXIA OR HYPERCAPNIA (8) Dysphagia Code(s): R13.10 - DYSPHAGIA, UNSPECIFIED Assessment/Plan CHECK AMMONIA LEVEL FOR CONFUSION AND HISTORY OF HEPATIC ABNORMALITY NEUROLOGY F/U APPRECIATED TRANSFUSE PRBC WITH HD TODAY VENT DEPENDENT WEAN TOLERATED BEDSIDE PT WOUND CARE PROSTAT MVI
[2016-11-25] MEDS: FAT EMULSIONS 20% 250 ML PREMIX INFUS.BAG IV SCH (21:20)
[2016-11-26] MEDS: FENTANYL INJECTION 500 MCG in DEXTROSE 5%-WATER - 90 ML IJ SCH ×3 (00:30→19:00)
[2016-11-26 05:26] LABS: MCH 34.7 pg (25.7-33.7); MCHC 35.2 g/dl (32.0-36.0); MEAN CELL VOLUME 98.7 fl (80-96); MEAN PLT VOLUME 9.7 fl (7.5-11.1); PLATELET COUNT 76 K/MM3 (134-434); RDW 21.3 % (11.6-15.6); WHITE BLOOD COUNT 13.2 K/mm3 (4.0-10.0)
[2016-11-26 05:52] LABS: ALBUMIN 1.2 g/dl (3.4-5.0); CALCIUM 7.4 mg/dL (8.5-10.1)
[2016-11-26 05:53] LABS: BILIRUBIN,TOTAL 0.8 mg/dL (0.2-1.0); TOT PROT 5.3 g/dl (6.4-8.2)
[2016-11-26] MEDS: ALBUTEROL SO4 2.5/IPRATROPIUM 0.5 INH SOL 3 ML VIAL.NEB. NEB SCH ×3 (06:24→22:34)
--- NOTE | 2016-11-26 07:39 | PN ---
Progress Note, Physician Chief Complaint: ID Remains afebrile after stopping antibiotics yesterday Day 5 post op - Current Medication List Current Medications: Active Medications Acetaminophen (Ofirmev Injection -) 700 mg IVPB Q6H PRN PRN Reason: FEVER Acetaminophen (Tylenol Oral Solution -) 650 mg NGT Q6H PRN PRN Reason: FEVER OR PAIN Albuterol Sulfate (Ventolin 0.083% Nebulizer Soln -) 1 amp NEB Q1H PRN PRN Reason: SHORT OF BREATH/WHEEZING Albuterol/Ipratropium (Duoneb -) 1 amp NEB TIDR [facility] Last Admin: 11/26/16 06:24 Dose: 1 amp Amino Acids (Prosource No Carb Liquid Pkt) 30 ml PO BID@0800,1730 [facility] Last Admin: 11/25/16 11:16 Dose: Not Given Bacitracin (Bacitracin -) 1 applic TP DAILY [facility] Last Admin: 11/25/16 16:36 Dose: 1 applic Calcitriol (Rocaltrol Liquid -) 0.5 mcg NGT DAILY [facility] Last Admin: 11/25/16 11:16 Dose: Not Given Fat Emulsion Intravenous (Intralipid -) 250 ml IV DAILY@2200 [facility] Last Admin: 11/25/16 21:20 Dose: 250 ml Fentanyl 500 mcg/ Dextrose 100 mls @ 10 mls/hr IJ TITR MARIE PRN Reason: 50 MCG/HR Last Admin: 11/26/16 00:30 Dose: 10 mls/hr Levetiracetam (Keppra Injection -) 500 mg IVPB BID [facility] Last Admin: 11/25/16 21:21 Dose: 500 mg Ondansetron HCl (Zofran Injection) 4 mg IVPB Q4H PRN PRN Reason: NAUSEA AND/OR VOMITING Pantoprazole Sodium (Protonix 40mg Ivpb (Pre-Docked)) 40 mg IVPB DAILY [facility] Last Admin: 11/25/16 09:51 Dose: 40 mg Potassium Phos/Sodium Phos (Phos-Nak Packet -) 1 packet PO DAILY [facility] Last Admin: 11/25/16 11:16 Dose: Not Given - Objective Vital Signs: Vital Signs Temperature 97.8 F 11/26/16 06:00 Pulse Rate 98 H 11/26/16 06:00 Respiratory Rate 20 11/26/16 07:31 Blood Pressure 136/59 11/26/16 06:00 O2 Sat by Pulse Oximetry (%) 95 11/25/16 20:41 Constitutional: Yes: No Distress Neck: Yes: Other (Central line and trach) Cardiovascular: Yes: S1, S2 Respiratory: Yes: WNL, Regular, CTA Bilaterally Gastrointestinal: Yes: Soft, Other (POst op). No: Tenderness Labs: CBC, BMP 11/26/16 05:00 11/26/16 05:00 INR, PTT INR 1.95 (0.82-1.09) H D 11/23/16 01:00 Fibrinogen 279.0 mg/dL (238-498) 11/14/16 06:15 Problem List - Problems (1) Cardiopulmonary arrest Code(s): I46.9 - CARDIAC ARREST, CAUSE UNSPECIFIED (2) ESRD (end stage renal disease) on dialysis Code(s): N18.6 - END STAGE RENAL DISEASE Z99.2 - DEPENDENCE ON RENAL DIALYSIS (3) Pneumonia Code(s): J18.9 - PNEUMONIA, UNSPECIFIED ORGANISM (4) Respiratory failure Code(s): J96.90 - RESPIRATORY FAILURE, UNSP, UNSP W HYPOXIA OR HYPERCAPNIA (5) Status post exploratory laparotomy Code(s): Z98.89 - OTHER SPECIFIED POSTPROCEDURAL STATES * DO NOT USE * Assessment/Plan Microbiology 11/23/16 22:00 Sputum - Endotrachea Suction/Ventilator Gram Stain - Final 11/23/16 22:00 Sputum - Endotrachea Suction/Ventilator Sputum Culture - Preliminary Non Lactose Fermenting Gnb Yeast Like Organism 11/23/16 11:15 Blood - Post-Dialysis Blood Culture - Preliminary NO GROWTH OBTAINED AFTER 48 HOURS, INCUBATION TO CONTINUE FOR 3 DAYS. 11/23/16 11:15 Blood - Post-Dialysis Blood Culture - Preliminary NO GROWTH OBTAINED AFTER 48 HOURS, INCUBATION TO CONTINUE FOR 3 DAYS. Laboratory Tests 11/23/16 11/26/16 01:00 05:00 WBC 13.2 H Hgb 9.4 L Hct 26.7 L Plt Count 76 L INR 1.95 H D Assessment Day 5 post op lap lysis of adhesions Cardiopulmonary arrest ESRD Thrombocytopenia Respiratory failure Colonization of trach yeast/ ? pseudomonas Plan To observe off antibiotics Helen ZHAO
--- NOTE | 2016-11-26 09:06 | PN ---
Progress Note (short form) - Note Progress Note: Patient seen and examined in the ICU. Awake and responsive. Still with some abdominal discomfort. Remains off pressors. (+) drainage. AC Mode of vent. CXR: No gross change in LLL opacity and congestion Intake & Output 11/23/16 11/24/16 11/25/16 11/26/16 23:59 23:59 23:59 23:59 Intake Total 2713 2312.8 750 596 Output Total 0 0 200 100 Balance 2713 2312.8 550 496 Weight 110 lb 14.28 oz 113 lb 1.554 oz 114 lb 1.6 oz 113 lb 6.4 oz Last Vital Signs Temp Pulse Resp BP Pulse Ox 97.8 F 100 H 15 132/62 95 11/26/16 06:00 11/26/16 08:00 11/26/16 08:17 11/26/16 08:00 11/25/16 20:41 Active Medications Acetaminophen (Ofirmev Injection -) 700 mg IVPB Q6H PRN PRN Reason: FEVER Acetaminophen (Tylenol Oral Solution -) 650 mg NGT Q6H PRN PRN Reason: FEVER OR PAIN Albuterol Sulfate (Ventolin 0.083% Nebulizer Soln -) 1 amp NEB Q1H PRN PRN Reason: SHORT OF BREATH/WHEEZING Albuterol/Ipratropium (Duoneb -) 1 amp NEB TIDR [facility] Last Admin: 11/26/16 06:24 Dose: 1 amp Amino Acids (Prosource No Carb Liquid Pkt) 30 ml PO BID@0800,1730 [facility] Last Admin: 11/25/16 11:16 Dose: Not Given Bacitracin (Bacitracin -) 1 applic TP DAILY [facility] Last Admin: 11/25/16 16:36 Dose: 1 applic Calcitriol (Rocaltrol Liquid -) 0.5 mcg NGT DAILY [facility] Last Admin: 11/25/16 11:16 Dose: Not Given Fat Emulsion Intravenous (Intralipid -) 250 ml IV DAILY@2200 [facility] Last Admin: 11/25/16 21:20 Dose: 250 ml Fentanyl 500 mcg/ Dextrose 100 mls @ 10 mls/hr IJ TITR MARIE PRN Reason: 50 MCG/HR Last Admin: 11/26/16 00:30 Dose: 10 mls/hr Levetiracetam (Keppra Injection -) 500 mg IVPB BID [facility] Last Admin: 11/25/16 21:21 Dose: 500 mg Ondansetron HCl (Zofran Injection) 4 mg IVPB Q4H PRN PRN Reason: NAUSEA AND/OR VOMITING Pantoprazole Sodium (Protonix 40mg Ivpb (Pre-Docked)) 40 mg IVPB DAILY [facility] Last Admin: 11/25/16 09:51 Dose: 40 mg Potassium Phos/Sodium Phos (Phos-Nak Packet -) 1 packet PO DAILY [facility] Last Admin: 11/25/16 11:16 Dose: Not Given Constitutional: Yes: Awake on AC Mode of vent Eyes: Yes: WNL HENT: Yes: WNL Neck: Yes: Supple (trach) Cardiovascular: Yes: Regular Rate and Rhythm, S1, S2 Respiratory: Yes: Rhonchi (few rhonchi) Gastrointestinal: Yes: post-op bandages intact, intact J-tube with some local leak/discharge Extremities: Yes: WNL Edema: Yes Laboratory Results - last 24 hr 11/24/16 11/26/16 11/26/16 14:27 05:00 05:00 WBC 13.2 H RBC 2.71 L Hgb 9.4 L Hct 26.7 L MCV 98.7 H MCHC 35.2 RDW 21.3 H Plt Count 76 L MPV 9.7 Sodium 141 Potassium 3.0 L Chloride 101 Carbon Dioxide 30 D Anion Gap 10 BUN 20 H D Creatinine 2.0 H Creat Clearance w eGFR 24.03 POC Glucometer 91.38174 Random Glucose 94 Calcium 7.4 L Total Bilirubin 0.8 AST 31 ALT 8 L Alkaline Phosphatase 94 Total Protein 5.3 L Albumin 1.2 L 11/26/16 05:05 WBC RBC Hgb Hct MCV MCHC RDW Plt Count MPV Sodium Potassium Chloride Carbon Dioxide Anion Gap BUN Creatinine Creat Clearance w eGFR POC Glucometer 80 Random Glucose Calcium Total Bilirubin AST ALT Alkaline Phosphatase Total Protein Albumin Problem List - Problems (1) Anemia Code(s): D64.9 - ANEMIA, UNSPECIFIED Qualifiers: Other causes of anemia: chronic disease, kidney (2) Cardiopulmonary arrest Code(s): I46.9 - CARDIAC ARREST, CAUSE UNSPECIFIED (3) DVT (deep venous thrombosis) Code(s): I82.409 - ACUTE EMBOLISM AND THOMBOS UNSP DEEP VN UNSP LOWER EXTREMITY (4) Dysphagia Code(s): R13.10 - DYSPHAGIA, UNSPECIFIED (5) ESRD (end stage renal disease) on dialysis Code(s): N18.6 - END STAGE RENAL DISEASE Z99.2 - DEPENDENCE ON RENAL DIALYSIS (6) Pneumonia Code(s): J18.9 - PNEUMONIA, UNSPECIFIED ORGANISM (7) Respiratory failure Code(s): J96.90 - RESPIRATORY FAILURE, UNSP, UNSP W HYPOXIA OR HYPERCAPNIA (8) Shock Code(s): R57.9 - SHOCK, UNSPECIFIED Assessment/Plan S/P Trach due to failure to wean s/p PEA Cardiopulmonary Arrest s/p Hypothermia Protocol Pneumonia S/P Septic Shock Pulmonary HTN Lactic Acidosis resolved ESRD on HD RLE distal DVT GI Bleed Thrombocytopenia Fever S/P Ex-lap due to SBO S/P J-tube placement - Pain control - Monitor off pressors - HD per renal - Feeds when ok with surgery - AEDs - spontaneous breathing trials once clinically improved - DVT/GI prophylaxis - monitor lytes,h+h - Normal transfusion thresholds Dr Gonzalez CCTime 35"
[2016-11-26] MEDS: levETIRAcetam 500 MG/5 ML INJECTION VIAL IVPB SCH ×2 (09:32→22:06)
[2016-11-26] MEDS: PANTOPRAZOLE SODIUM 40 MG/100 ML PRE-DOCKED IVPB SCH (09:32)
[2016-11-26] MEDS: AMINO ACIDS/PROTEIN HYDROLYS 30 ML LIQUID.PKT PO SCH ×3 (11:10→18:48)
[2016-11-26] MEDS: NAPH,MB-DB/K PH,MBDB POWDER PACKET PO SCH (11:11)
[2016-11-26] MEDS: BACITRACIN 30 GM TUBE TOPICAL OINTMENT TP SCH (11:11)
[2016-11-26] MEDS: CALCITRIOL 1 MCG/ML BOT NGT SCH (11:11)
[2016-11-26] MEDS: KCL 10 MEQ IVPB 100 ML IVPB SCH ×3 (11:24→14:09)
[2016-11-26] MEDS ORDERED: PT OWN MED DRAWER 7, Y5N ONE (11:30)
[2016-11-26] MEDS ORDERED: HYDROmorphone HCL CARPU-JECT 2 MG/1 ML DISP.SYRIN ONE (11:45)
[2016-11-26] MEDS ORDERED: HYDROmorphone HCL CARPU-JECT 1 MG/1 ML DISP.SYRIN IVPUSH ONE (11:47)
--- NOTE | 2016-11-26 11:57 | PN ---
Progress Note (short form) - Note Progress Note: RENAL Remains in icu awake anxious Last Vital Signs Temp Pulse Resp BP Pulse Ox 97.8 F 112 H 15 132/62 96 11/26/16 06:00 11/26/16 10:00 11/26/16 10:00 11/26/16 10:00 11/26/16 09:00 has a trach lungs clear cvs s1s2 rr tachy abd soft ext no edema, LUE avf pulsatile neuro awake has a rectal tube CBC, BMP 11/26/16 05:00 11/26/16 05:00 Current Medications Generic Name Dose Route Start Last Admin Trade Name Freq PRN Reason Stop Dose Admin Acetaminophen 700 mg 11/22/16 22:27 Ofirmev Injection - IVPB Q6H PRN FEVER Acetaminophen 650 mg 11/22/16 22:27 Tylenol Oral Solution - NGT Q6H PRN FEVER OR PAIN Albuterol Sulfate 1 amp 11/23/16 01:39 Ventolin 0.083% Nebulizer Soln - NEB Q1H PRN SHORT OF BREATH/WHEEZING Albuterol/Ipratropium 1 amp 11/23/16 06:00 11/26/16 06:24 Duoneb - NEB 1 amp TIDR MARIE Administration Amino Acids 30 ml 11/23/16 08:00 11/26/16 11:10 Prosource No Carb Liquid Pkt PO Not Given BID@0800,1730 MARIE Bacitracin 1 applic 11/23/16 10:00 11/26/16 11:11 Bacitracin - TP 1 applic DAILY MARIE Administration Calcitriol 0.5 mcg 11/25/16 09:58 11/26/16 11:11 Rocaltrol Liquid - NGT Not Given DAILY MARIE Fat Emulsion Intravenous 250 ml 11/24/16 22:00 11/25/16 21:20 Intralipid - IV 250 ml DAILY@2200 MARIE Administration Fentanyl 500 mcg/ Dextrose 100 mls @ 10 mls/hr 11/23/16 00:30 11/26/16 00:30 IJ 10 mls/hr TITR MARIE Administration 50 MCG/HR Potassium Chloride 100 mls @ 100 mls/hr 11/26/16 10:15 11/26/16 11:24 Potassium Chloride 10 Meq Premix Ivpb - IVPB 11/26/16 13:14 100 mls/hr Q60M MARIE Administration Levetiracetam 500 mg 11/23/16 10:00 11/26/16 09:32 Keppra Injection - IVPB 500 mg BID MARIE Administration Ondansetron HCl 4 mg 11/22/16 22:27 Zofran Injection IVPB Q4H PRN NAUSEA AND/OR VOMITING Pantoprazole Sodium 40 mg 11/23/16 10:00 11/26/16 09:32 Protonix 40mg Ivpb (Pre-Docked) IVPB 40 mg DAILY MARIE Administration Potassium Phos/Sodium Phos 1 packet 11/23/16 10:00 11/26/16 11:11 Phos-Nak Packet - PO Not Given DAILY MARIE Impression 1. ESRD 2. s/p cardiopulmonary arrest 3. acute respiratory failure 4. Pneumonia 5. DVT of right leg 6. S/P Seizure following the arrest 7. Right renal complex cyst > 5cms in diameter 8. Anemia 9. Thrombocytopenia 10. H/O HCV 11. active GI bleed Plan continue phosphate replacement increase calcitriol continue AED agree with k replacement MV
--- NOTE | 2016-11-26 13:03 | PN ---
Progress Note, Physician Chief Complaint: AWAKE AND MORE ALERT STILL NOT USING HER JTUBE YET HD PER RENAL - Current Medication List Current Medications: Active Medications Acetaminophen (Ofirmev Injection -) 700 mg IVPB Q6H PRN PRN Reason: FEVER Acetaminophen (Tylenol Oral Solution -) 650 mg NGT Q6H PRN PRN Reason: FEVER OR PAIN Albuterol Sulfate (Ventolin 0.083% Nebulizer Soln -) 1 amp NEB Q1H PRN PRN Reason: SHORT OF BREATH/WHEEZING Albuterol/Ipratropium (Duoneb -) 1 amp NEB TIDR [facility] Last Admin: 11/26/16 06:24 Dose: 1 amp Amino Acids (Prosource No Carb Liquid Pkt) 30 ml PO BID@0800,1730 [facility] Last Admin: 11/26/16 11:10 Dose: Not Given Bacitracin (Bacitracin -) 1 applic TP DAILY [facility] [place] Last Admin: 11/26/16 11:11 Dose: 1 applic Calcitriol (Rocaltrol Liquid -) 0.5 mcg NGT DAILY [facility] Last Admin: 11/26/16 11:11 Dose: Not Given Fat Emulsion Intravenous (Intralipid -) 250 ml IV DAILY@2200 [facility] Last Admin: 11/25/16 21:20 Dose: 250 ml Fentanyl 500 mcg/ Dextrose 100 mls @ 10 mls/hr IJ TITR [facility] [place] PRN Reason: 50 MCG/HR Last Admin: 11/26/16 00:30 Dose: 10 mls/hr Potassium Chloride (Potassium Chloride 10 Meq Premix Ivpb -) 100 mls @ 100 mls/ hr IVPB Q60M [facility] [place] Stop: 11/26/16 13:14 Last Admin: 11/26/16 12:58 Dose: 100 mls/hr Levetiracetam (Keppra Injection -) 500 mg IVPB BID [facility] Last Admin: 11/26/16 09:32 Dose: 500 mg Ondansetron HCl (Zofran Injection) 4 mg IVPB Q4H PRN PRN Reason: NAUSEA AND/OR VOMITING Pantoprazole Sodium (Protonix 40mg Ivpb (Pre-Docked)) 40 mg IVPB DAILY [facility] [place] Last Admin: 11/26/16 09:32 Dose: 40 mg Potassium Phos/Sodium Phos (Phos-Nak Packet -) 1 packet PO DAILY [facility] Last Admin: 11/26/16 11:11 Dose: Not Given - Objective Vital Signs: Vital Signs Temperature 98.8 F 11/26/16 12:00 Pulse Rate 102 H 11/26/16 12:00 Respiratory Rate 15 11/26/16 12:46 Blood Pressure 94/50 11/26/16 12:00 O2 Sat by Pulse Oximetry (%) 96 11/26/16 09:00 Constitutional: Yes: Mild Distress Eyes: Yes: WNL HENT: Yes: WNL Neck: Yes: WNL Cardiovascular: Yes: WNL Respiratory: Yes: Mechanically Ventilated Gastrointestinal: Yes: WNL, Other Genitourinary: Yes: Other Musculoskeletal: Yes: Muscle Weakness Extremities: Yes: Other Edema: Yes Peripheral Pulses WNL: Yes Integumentary: Yes: Erythema, Rash, Skin Tear Wound/Incision: Yes: Dressing Dry and Intact Neurological: Yes: Pre-Existing Deficit ...Motor Strength: LLE, RLE Labs: CBC, BMP 11/26/16 05:00 11/26/16 05:00 INR, PTT INR 1.95 (0.82-1.09) H D 11/23/16 01:00 Fibrinogen 279.0 mg/dL (238-498) 11/14/16 06:15 Problem List - Problems (1) Cardiopulmonary arrest Code(s): I46.9 - CARDIAC ARREST, CAUSE UNSPECIFIED (2) DVT (deep venous thrombosis) Code(s): I82.409 - ACUTE EMBOLISM AND THOMBOS UNSP DEEP VN UNSP LOWER EXTREMITY (3) ESRD (end stage renal disease) on dialysis Code(s): N18.6 - END STAGE RENAL DISEASE Z99.2 - DEPENDENCE ON RENAL DIALYSIS (4) HCV (hepatitis C virus) Code(s): B19.20 - UNSPECIFIED VIRAL HEPATITIS C WITHOUT HEPATIC COMA (5) Metabolic encephalopathy Code(s): G93.41 - METABOLIC ENCEPHALOPATHY (6) Pneumonia Code(s): J18.9 - PNEUMONIA, UNSPECIFIED ORGANISM (7) Respiratory failure Code(s): J96.90 - RESPIRATORY FAILURE, UNSP, UNSP W HYPOXIA OR HYPERCAPNIA (8) Dysphagia Code(s): R13.10 - DYSPHAGIA, UNSPECIFIED Assessment/Plan CONTINUE CURRENT MEDICATIONS AND CARE WEAN OFF PRESSURE SUPPORT 02 SUPPORT TRACHEOSTOMY DISCUSSED WITH SANIYA FROM [facility] SHE WILL ACCEPT PATIENT WITH TRACH/HD ONCE STABLE [phone]
[2016-11-26] MEDS ORDERED: DEXTROSE 50%-WATER 50 ML DISP.SYRIN ONE (18:16)
[2016-11-26] MEDS ORDERED: DEXTROSE 50%-WATER 50 ML VIAL IVPUSH ONE (18:30)
[2016-11-26] MEDS ORDERED: DEXTROSE 5%-0.45% SALINE 1,000 ML IV ONE (18:30)
[2016-11-26] MEDS: FAT EMULSIONS 20% 250 ML PREMIX INFUS.BAG IV SCH (22:06)
[2016-11-27] MEDS: FENTANYL INJECTION 500 MCG in DEXTROSE 5%-WATER - 90 ML IJ SCH (00:30)
[2016-11-27] MEDS: ALBUTEROL SO4 2.5/IPRATROPIUM 0.5 INH SOL 3 ML VIAL.NEB. NEB SCH ×3 (05:38→21:50)
[2016-11-27 06:10] LABS: MCH 33.8 pg (25.7-33.7); MCHC 34.1 g/dl (32.0-36.0); MEAN CELL VOLUME 99.1 fl (80-96); PLATELET COUNT 60 K/MM3 (134-434); RDW 21.8 % (11.6-15.6); WHITE BLOOD COUNT 14.5 K/mm3 (4.0-10.0)
[2016-11-27 06:31] LABS: ALBUMIN 1.2 g/dl (3.4-5.0); ANION GAP 9 (8-16); CALCIUM 7.3 mg/dL (8.5-10.1); CO2 28 mmol/L (21-32); GLUCOSE,RANDOM 97 mg/dL (74-106); MAGNESIUM 1.4 mg/dL (1.8-2.4)
[2016-11-27 06:35] LABS: ALK PHOS 100 U/L (45-117); BILIRUBIN,TOTAL 0.7 mg/dL (0.2-1.0); CREATININE 2.4 mg/dL (0.55-1.02); PHOSPHOROUS 1.7 mg/dL (2.5-4.9); SGOT/AST 23 U/L (15-37); SGPT/ALT < 6 U/L (12-78); TOT PROT 5.1 g/dl (6.4-8.2)
[2016-11-27 07:47] LABS: ARTERIAL BLD GAS O2 SATURATION 99.1 % (90-98.9); ARTERIAL BLOOD GAS BASE EXCESS 1.8 meq/l (-2-2)
[2016-11-27 07:48] LABS: ALLENS TEST POSITIVE; ART PUNCT SITE RIGHT RADIAL; ARTERIAL BLOOD GAS pH 7.47 (7.35-7.45); LPM/O2% 35; MECH. VENT. YES; PT. ON O2? YES; TYPE OF O2 VENT; VENT RATE 15; VT/PRESS 350
--- NOTE | 2016-11-27 08:42 | PN ---
Progress Note (short form) - Note Progress Note: POD#5 Vital Signs Period Temp Pulse Resp BP Sys/Hodgson Pulse Ox Last 24 Hr 96.9 F-98.8 F 84-118 15-20 93-147/48-83 95-96 PE: GEN: Alert and responsive ABD: soft, non-distended, fascia intact, mild drainage on the abd dressing today. Midline incision with intermittent adina. J tube covered with ostomy dressing because of leaking around the tube. CBC, BMP //17 05:00 //17 05:00 A/p: s/p exp lap with SB resection/lysis of adhesion, and placement of Jtube Spoke with Dr. Canales and ordered a jtube tube for bedside today. If in place and without a leak will begin feeds. local wound care with dry dressing daily.
[2016-11-27] MEDS: PANTOPRAZOLE SODIUM 40 MG/100 ML PRE-DOCKED IVPB SCH (10:15)
[2016-11-27] MEDS: levETIRAcetam 500 MG/5 ML INJECTION VIAL IVPB SCH ×2 (10:15→22:05)
[2016-11-27] MEDS: BACITRACIN 30 GM TUBE TOPICAL OINTMENT TP SCH (10:16)
[2016-11-27] MEDS: NAPH,MB-DB/K PH,MBDB POWDER PACKET PO SCH (10:16)
[2016-11-27] MEDS: AMINO ACIDS/PROTEIN HYDROLYS 30 ML LIQUID.PKT PO SCH ×2 (10:16→18:19)
[2016-11-27] MEDS: CALCITRIOL 1 MCG/ML BOT NGT SCH (10:17)
[2016-11-27] MEDS: HYDROmorphone HCL CARPU-JECT 2 MG/1 ML DISP.SYRIN IVPB PRN ×3 (11:05→23:22)
--- NOTE | 2016-11-27 11:50 | PN ---
Teaching Attending Note Name of Resident: Sukhwinder Kohler ATTENDING PHYSICIAN STATEMENT I saw and evaluated the patient. I reviewed the resident's note and discussed the case with the resident. I agree with the resident's findings and plan as documented. SUBJECTIVE: Pt seen and examined in the ICU. s/p J tube placement with confirmatory studies pending. Vented on volume assist control with 35% FiO2. No pressors. OBJECTIVE: Last Vital Signs Temp Pulse Resp BP Pulse Ox 96.9 F L 109 H 15 117/60 99 11/27/16 06:00 11/27/16 10:00 11/27/16 11:04 11/27/16 08:00 11/27/16 11:05 Intake & Output 11/24/16 11/25/16 11/26/16 11/27/16 23:59 23:59 23:59 23:59 Intake Total 2312.8 750 1166 1310 Output Total 0 200 100 300 Balance 2312.8 550 1066 1010 Weight 113 lb 1.554 oz 114 lb 1.6 oz 113 lb 6.4 oz 117 lb 11.2 oz Gen: vented, arousable Heart: tachycardic, regular Lung: decreased breath sounds at the bases Abd: soft, nontender, +ostomy with serosanguinous drainage Ext: UE edema CBC, BMP 11/27/16 05:00 11/27/16 05:00 Active Medications Acetaminophen (Ofirmev Injection -) 700 mg IVPB Q6H PRN PRN Reason: FEVER Last Admin: 11/26/16 23:44 Dose: 700 mg Acetaminophen (Tylenol Oral Solution -) 650 mg NGT Q6H PRN PRN Reason: FEVER OR PAIN Albuterol Sulfate (Ventolin 0.083% Nebulizer Soln -) 1 amp NEB Q1H PRN PRN Reason: SHORT OF BREATH/WHEEZING Albuterol/Ipratropium (Duoneb -) 1 amp NEB TIDR [facility] Last Admin: 11/27/16 05:38 Dose: 1 amp Amino Acids (Prosource No Carb Liquid Pkt) 30 ml PO BID@0800,1730 [facility] Last Admin: 11/27/16 10:16 Dose: Not Given Bacitracin (Bacitracin -) 1 applic TP DAILY [facility] Last Admin: 11/27/16 10:16 Dose: 1 applic Calcitriol (Rocaltrol Liquid -) 0.5 mcg NGT DAILY [facility] Last Admin: 11/27/16 10:17 Dose: Not Given Fat Emulsion Intravenous (Intralipid -) 250 ml IV DAILY@2200 [facility] Last Admin: 11/26/16 22:06 Dose: 250 ml Hydromorphone HCl (Dilaudid Injection -) 2 mg IVPB Q4H PRN PRN Reason: PAIN Stop: 11/28/16 08:35 Last Admin: 11/27/16 11:05 Dose: 2 mg Levetiracetam (Keppra Injection -) 500 mg IVPB BID [facility] Last Admin: 11/27/16 10:15 Dose: 500 mg Magnesium Sulfate (Magnesium Sulfate) 2 gm IVPB ONCE ONE Stop: 11/27/16 11:42 Ondansetron HCl (Zofran Injection) 4 mg IVPB Q4H PRN PRN Reason: NAUSEA AND/OR VOMITING Pantoprazole Sodium (Protonix 40mg Ivpb (Pre-Docked)) 40 mg IVPB DAILY [facility] Last Admin: 11/27/16 10:15 Dose: 40 mg Potassium Phos/Sodium Phos (Phos-Nak Packet -) 1 packet PO DAILY [facility] Last Admin: 11/27/16 10:16 Dose: Not Given ASSESSMENT AND PLAN: s/p PEA Cardiopulmonary Arrest s/p Hypothermia Protocol s/p Tracheostomy Small Bowel Obstruction s/p ex-lap/small bowel resection/DANNY 11/22/16 Pneumonia s/p Septic Shock Pulmonary HTN ESRD on HD r/o Anoxic Encephalopathy RLE distal DVT GI Bleed Thrombocytopenia - HD per renal - observing off antibiotics per ID - reculture if febrile - monitor H/H - transfuse as needed - spontaneous breathing trials as tolerated - start free water after J tube placement confirmed, plan to start enteral feeds tomorrow - replete lytes - DVT/GI prophylaxis - continue ICU monitoring CCT 35'
[2016-11-27] MEDS ORDERED: MAGNESIUM SULF 50% (8.12 MEQ/2 ML-1 GM VIAL) IVPB ONE (12:45)
--- NOTE | 2016-11-27 13:00 | PN ---
Progress Note, Physician History of Present Illness: Pt seen and examined at bedside. She remains in the ICU. She is awake. She remain ventilated. - Current Medication List Current Medications: Active Medications Acetaminophen (Ofirmev Injection -) 700 mg IVPB Q6H PRN PRN Reason: FEVER Last Admin: 11/26/16 23:44 Dose: 700 mg Acetaminophen (Tylenol Oral Solution -) 650 mg NGT Q6H PRN PRN Reason: FEVER OR PAIN Albuterol Sulfate (Ventolin 0.083% Nebulizer Soln -) 1 amp NEB Q1H PRN PRN Reason: SHORT OF BREATH/WHEEZING Albuterol/Ipratropium (Duoneb -) 1 amp NEB TIDR [facility] Last Admin: 11/27/16 05:38 Dose: 1 amp Amino Acids (Prosource No Carb Liquid Pkt) 30 ml PO BID@0800,1730 [facility] Last Admin: 11/27/16 10:16 Dose: Not Given Bacitracin (Bacitracin -) 1 applic TP DAILY [facility] Last Admin: 11/27/16 10:16 Dose: 1 applic Calcitriol (Rocaltrol Liquid -) 0.5 mcg NGT DAILY [facility] Last Admin: 11/27/16 10:17 Dose: Not Given Fat Emulsion Intravenous (Intralipid -) 250 ml IV DAILY@2200 [facility] Last Admin: 11/26/16 22:06 Dose: 250 ml Hydromorphone HCl (Dilaudid Injection -) 2 mg IVPB Q4H PRN PRN Reason: PAIN Stop: 11/28/16 08:35 Last Admin: 11/27/16 11:05 Dose: 2 mg Levetiracetam (Keppra Injection -) 500 mg IVPB BID [facility] Last Admin: 11/27/16 10:15 Dose: 500 mg Ondansetron HCl (Zofran Injection) 4 mg IVPB Q4H PRN PRN Reason: NAUSEA AND/OR VOMITING Pantoprazole Sodium (Protonix 40mg Ivpb (Pre-Docked)) 40 mg IVPB DAILY [facility] Last Admin: 11/27/16 10:15 Dose: 40 mg Potassium Phos/Sodium Phos (Phos-Nak Packet -) 1 packet PO DAILY [facility] Last Admin: 11/27/16 10:16 Dose: Not Given - Objective Vital Signs: Vital Signs Temperature 97.2 F L 11/27/16 10:00 Pulse Rate 94 H 11/27/16 10:00 Respiratory Rate 15 11/27/16 11:04 Blood Pressure 153/80 11/27/16 10:00 O2 Sat by Pulse Oximetry (%) 96 11/27/16 11:56 Constitutional: Yes: Calm Eyes: Yes: Conjunctiva Clear Neck: Yes: Other (trache) Cardiovascular: Yes: S1, S2 Gastrointestinal: Yes: Soft Genitourinary: Yes: Incontinence Musculoskeletal: Yes: Muscle Weakness Edema: Yes Edema: LLE: 1+, RLE: 1+ Wound/Incision: Yes: Dressing Dry and Intact Labs: CBC, BMP 11/27/16 05:00 11/27/16 05:00 INR, PTT INR 1.95 (0.82-1.09) H D 11/23/16 01:00 Fibrinogen 279.0 mg/dL (238-498) 11/14/16 06:15 Problem List - Problems (1) Cardiopulmonary arrest Code(s): I46.9 - CARDIAC ARREST, CAUSE UNSPECIFIED (2) DVT (deep venous thrombosis) Code(s): I82.409 - ACUTE EMBOLISM AND THOMBOS UNSP DEEP VN UNSP LOWER EXTREMITY (3) ESRD (end stage renal disease) on dialysis Code(s): N18.6 - END STAGE RENAL DISEASE Z99.2 - DEPENDENCE ON RENAL DIALYSIS (4) HCV (hepatitis C virus) Code(s): B19.20 - UNSPECIFIED VIRAL HEPATITIS C WITHOUT HEPATIC COMA (5) Respiratory failure Code(s): J96.90 - RESPIRATORY FAILURE, UNSP, UNSP W HYPOXIA OR HYPERCAPNIA Assessment/Plan Current Medications Generic Name Dose Route Start Last Admin Trade Name Freq PRN Reason Stop Dose Admin Acetaminophen 700 mg 11/22/16 22:27 11/26/16 23:44 Ofirmev Injection - IVPB 700 mg Q6H PRN Administration FEVER Acetaminophen 650 mg 11/22/16 22:27 Tylenol Oral Solution - NGT Q6H PRN FEVER OR PAIN Albuterol Sulfate 1 amp 11/23/16 01:39 Ventolin 0.083% Nebulizer Soln - NEB Q1H PRN SHORT OF BREATH/WHEEZING Albuterol/Ipratropium 1 amp 11/23/16 06:00 11/27/16 05:38 Duoneb - NEB 1 amp TIDR [facility] Administration Amino Acids 30 ml 11/23/16 08:00 11/27/16 10:16 Prosource No Carb Liquid Pkt PO Not Given BID@0800,1730 [facility] Bacitracin 1 applic 11/23/16 10:00 11/27/16 10:16 Bacitracin - TP 1 applic DAILY [facility] Administration Calcitriol 0.5 mcg 11/25/16 09:58 11/27/16 10:17 Rocaltrol Liquid - NGT Not Given DAILY [facility] Fat Emulsion Intravenous 250 ml 11/24/16 22:00 11/26/16 22:06 Intralipid - IV 250 ml DAILY@2200 [facility] Administration Hydromorphone HCl 2 mg 11/27/16 08:36 11/27/16 11:05 Dilaudid Injection - IVPB 11/28/16 08:35 2 mg Q4H PRN Administration PAIN Levetiracetam 500 mg 11/23/16 10:00 11/27/16 10:15 Keppra Injection - IVPB 500 mg BID [facility] Administration Ondansetron HCl 4 mg 11/22/16 22:27 Zofran Injection IVPB Q4H PRN NAUSEA AND/OR VOMITING Pantoprazole Sodium 40 mg 11/23/16 10:00 11/27/16 10:15 Protonix 40mg Ivpb (Pre-Docked) IVPB 40 mg DAILY [facility] Administration Potassium Phos/Sodium Phos 1 packet 11/23/16 10:00 11/27/16 10:16 Phos-Nak Packet - PO Not Given DAILY [facility] 11/13/16 cultures no growth to date 11/16/16 blood cultures negative to date Impression 1. ESRD 2. s/p cardiopulmonary arrest 3. acute respiratory failure 4. Pneumonia 5. DVT of right leg 6. S/P Seizure following the arrest 7. Right renal complex cyst > 5cms in diameter 8. Anemia 9. Thrombocytopenia 10. H/O HCV 11. GI bleed 12. s/p exploratory laparotomy, lysis of adhesions, small bowel resection, and feeding jejunostomy Plan - will arrange for dialysis tomorrow - surgery input appreciated - epogen for anemia - vent support, weaning as tolerated - reviewed monitor - check phos levels - stop clinimix if feeds are started Dr Espino
--- NOTE | 2016-11-27 17:09 | PN ---
Physical Exam: SUBJECTIVE: Patient seen and examined at bedside in the ICU. She's trached and on vent, at normal mental baseline, interactive. OBJECTIVE: Vent settings: AC, RR 15, TV 350, FiO2 35%, PEEP 5 Trached and on Vent Off fentanyle, on dilaudid for pain only Central line (IJ) Day 5 Vital Signs Period Temp Pulse Resp BP Sys/Hodgson Pulse Ox Last 24 Hr 96.4 F-98.8 F 84-118 13-18 105-153/53-83 95-99 GENERAL: Trached and on vent, non-verbal, awake, alert, aware, interactive, RASS +1. LUNGS: Decreased breath sounds HEART: tachycardic, normal S1, S2 without murmur, rub or gallop. ABDOMEN: Soft, tenderness in low abd, absent bowel sounds, J-tube in place draining pink color fluid. Dressings in place on surgical sites EXTREMITIES: SCDs ABG Results ABG pH 7.47 (7.35-7.45) H 11/27/16 07:30 ABG pCO2 at Pt Temp 35.3 mmHg (35-45) 11/27/16 07:30 ABG pO2 at Pt Temp 118.0 mmHg (70-100) H 11/27/16 07:30 ABG HCO3 25.0 meq/L (22-26) 11/27/16 07:30 ABG O2 Sat (Measured) 99.1 % (90-98.9) H 11/27/16 07:30 ABG O2 Content 12.7 % vol (15-22) L 11/27/16 07:30 ABG Base Excess 1.8 meq/l (-2-2) 11/27/16 07:30 CBCD WBC 14.5 K/mm3 (4.0-10.0) H 11/27/16 05:00 RBC 2.65 M/mm3 (3.60-5.2) L 11/27/16 05:00 Hgb 9.0 GM/dL (10.7-15.3) L 11/27/16 05:00 Hct 26.3 % (32.4-45.2) L 11/27/16 05:00 MCV 99.1 fl (80-96) H 11/27/16 05:00 MCHC 34.1 g/dl (32.0-36.0) 11/27/16 05:00 RDW 21.8 % (11.6-15.6) H 11/27/16 05:00 Plt Count 60 K/MM3 (134-434) L D 11/27/16 05:00 MPV 10.0 fl (7.5-11.1) 11/27/16 05:00 CMP Sodium 137 mmol/L (136-145) 11/27/16 05:00 Potassium 3.4 mmol/L (3.5-5.1) L 11/27/16 05:00 Chloride 100 mmol/L (98-107) 11/27/16 05:00 Carbon Dioxide 28 mmol/L (21-32) 11/27/16 05:00 Anion Gap 9 (8-16) 11/27/16 05:00 BUN 22 mg/dL (7-18) H 11/27/16 05:00 Creatinine 2.4 mg/dL (0.55-1.02) H 11/27/16 05:00 Creat Clearance w eGFR 19.47 (>60) 11/27/16 05:00 Calcium 7.3 mg/dL (8.5-10.1) L 11/27/16 05:00 Total Bilirubin 0.7 mg/dL (0.2-1.0) 11/27/16 05:00 AST 23 U/L (15-37) D 11/27/16 05:00 ALT < 6 U/L (12-78) L D 11/27/16 05:00 Alkaline Phosphatase 100 U/L (45-117) 11/27/16 05:00 Total Protein 5.1 g/dl (6.4-8.2) L 11/27/16 05:00 Albumin 1.2 g/dl (3.4-5.0) L 11/27/16 05:00 Intake & Output 11/24/16 11/25/16 11/26/16 11/27/16 23:59 23:59 23:59 23:59 Intake Total 2312.8 750 1166 1310 Output Total 0 200 100 300 Balance 2312.8 550 1066 1010 Weight 51.3 kg 51.755 kg 51.437 kg 53.388 kg Active Medications Generic Name Dose Route Start Last Admin Trade Name Freq PRN Reason Stop Dose Admin Acetaminophen 700 mg 11/22/16 22:27 11/26/16 23:44 Ofirmev Injection - IVPB 700 mg Q6H PRN Administration FEVER Acetaminophen 650 mg 11/22/16 22:27 Tylenol Oral Solution - NGT Q6H PRN FEVER OR PAIN Albumin Human 12.5 gm 11/28/16 13:15 Albuminar-25 IVPB 11/28/16 14:46 Q30M [facility] Albuterol Sulfate 1 amp 11/23/16 01:39 Ventolin 0.083% Nebulizer Soln - NEB Q1H PRN SHORT OF BREATH/WHEEZING Albuterol/Ipratropium 1 amp 11/23/16 06:00 11/27/16 13:00 Duoneb - NEB 1 amp TIDR [facility] Administration Amino Acids 30 ml 11/23/16 08:00 11/27/16 10:16 Prosource No Carb Liquid Pkt PO Not Given BID@0800,1730 [facility] Bacitracin 1 applic 11/23/16 10:00 11/27/16 10:16 Bacitracin - TP 1 applic DAILY [facility] Administration Calcitriol 0.5 mcg 11/25/16 09:58 11/27/16 10:17 Rocaltrol Liquid - NGT Not Given DAILY [facility] Epoetin Cirilo 10,000 unit 11/28/16 13:01 Procrit - IVPUSH 11/28/16 13:02 ONCE ONE Fat Emulsion Intravenous 250 ml 11/24/16 22:00 11/26/16 22:06 Intralipid - IV 250 ml DAILY@2200 [facility] Administration Hydromorphone HCl 2 mg 11/27/16 08:36 11/27/16 11:05 Dilaudid Injection - IVPB 11/28/16 08:35 2 mg Q4H PRN Administration PAIN Levetiracetam 500 mg 11/23/16 10:00 11/27/16 10:15 Keppra Injection - IVPB 500 mg BID [facility] Administration Ondansetron HCl 4 mg 11/22/16 22:27 Zofran Injection IVPB Q4H PRN NAUSEA AND/OR VOMITING Pantoprazole Sodium 40 mg 11/23/16 10:00 11/27/16 10:15 Protonix 40mg Ivpb (Pre-Docked) IVPB 40 mg DAILY [facility] Administration Potassium Phos/Sodium Phos 1 packet 11/23/16 10:00 11/27/16 10:16 Phos-Nak Packet - PO Not Given DAILY [facility] 11/27: A portable abdomen study shows contrast injected into a left abdominal catheter/J-tube which fills a small bowel loop which is part of the jejunum. A gross obstruction or leak is not appreciated. There is an IVC filter, abdominal and pelvic clips as well as a large heart with dense left base. There are external monitors. There may be a pelvic probe CXR 11/27: Since 11/26/2016, the tracheostomy tube and right jugular line with large heart, sclerotic unfolded aorta and congestive changes with bibasilar findings and deformed shoulders persists CXR 11/24: New left basilar opacity with effacement of the left diaphragm blunting of the left costophrenic angle: Atelectasis likely associated with left pleural effusion ASSESSMENT/PLAN: 80 yo F h/o HTN, GIB, chronic anemia 2/2 ESRD on HD, Hep C admitted to the hospital originally for cardiac arrest on 10/22. She's now trached due to respiratory failure requiring and sustained significant anoxic brain injury and recovered from sepsis. Patient was readmitted to the ICU s/p J-tube placement and exploratory lap for adhesion and small bowel resection. Jtube became leaky yesterday and it's re-inserted today in AM in the OR. GI: s/p J-tube placement and small bowel resection - J-tube became malfunctional and reinserted this AM, POD #1 - Routine wound care for surgical site and decub. ulcer - Absent bowel sounds and movement - Dilaudid 2mg PRN for pain Pulm: Chronic respiratory insufficiency, trached and on vent - Trached on vent: see settings above - Maintain O2 Sat. > 88% - Daily SBT - Nebulizers PRN - Daily ABG and CXR ID: Severe sepsis - Lactic acid trending down - WBC remains elevated - Observe off abx Renal/: ESRD on HD - Will get dialysis tomorrow Heme: Chronic anemia 2/2 ESRD - HGB stable at baseline - On epogen - Transfuse as needed * No blood transfusion on HD - F/u H&H Cardiac: S/p cardiac arrest and hypothermic protocol - Not on pressor maintain MAP > 65% - Hold all anti-BP meds Neuro: Seizure disorder - Cont. anti-epileptic medications - Cont. to monitor neuro function FEN - No IVF - Low phos and Mg, on phos-nak, replete Mg with MgSO4 - Free water through J-tube at 20cc/hr, may start feeding per fire safety inspector after 24 hours Prophylaxis - DVT: not indicated due to h/o GIB and s/p surgery - GI: on PPI Disposition - Cont. to monitor in ICU Code status - Full code Visit type - Emergency Visit Emergency Visit: No - New Patient This patient is new to me today: No - Critical Care Critical Care patient: Yes Total Critical Care Time (in minutes): 45 Critical Care Statement: The care of this patient involved high complexity decision making to prevent further life threatening deterioration of the patient 's condition and/or to evalute & treat vital organ system(s) failure or risk of failure.
[2016-11-27] MEDS ORDERED: D5-1/2NS+20 MEQ KCL - 1,000 ML IV SCH (18:00)
--- NOTE | 2016-11-27 18:07 | PN ---
Progress Note, Physician Chief Complaint: NO DISTRESS OPENS EYES WITH TOUCH - Current Medication List Current Medications: Active Medications Acetaminophen (Ofirmev Injection -) 700 mg IVPB Q6H PRN PRN Reason: FEVER Last Admin: 11/26/16 23:44 Dose: 700 mg Acetaminophen (Tylenol Oral Solution -) 650 mg NGT Q6H PRN PRN Reason: FEVER OR PAIN Albumin Human (Albuminar-25) 12.5 gm IVPB Q30M [facility] Stop: 11/28/16 14:46 Albuterol Sulfate (Ventolin 0.083% Nebulizer Soln -) 1 amp NEB Q1H PRN PRN Reason: SHORT OF BREATH/WHEEZING Albuterol/Ipratropium (Duoneb -) 1 amp NEB TIDR [facility] Last Admin: 11/27/16 13:00 Dose: 1 amp Amino Acids (Prosource No Carb Liquid Pkt) 30 ml PO BID@0800,1730 [facility] Last Admin: 11/27/16 10:16 Dose: Not Given Bacitracin (Bacitracin -) 1 applic TP DAILY [facility] Last Admin: 11/27/16 10:16 Dose: 1 applic Calcitriol (Rocaltrol Liquid -) 0.5 mcg NGT DAILY [facility] Last Admin: 11/27/16 10:17 Dose: Not Given Epoetin Cirilo (Procrit -) 10,000 unit IVPUSH ONCE ONE Stop: 11/28/16 13:02 Fat Emulsion Intravenous (Intralipid -) 250 ml IV DAILY@2200 [facility] Last Admin: 11/26/16 22:06 Dose: 250 ml Hydromorphone HCl (Dilaudid Injection -) 2 mg IVPB Q4H PRN PRN Reason: PAIN Stop: 11/28/16 08:35 Last Admin: 11/27/16 18:01 Dose: 2 mg Dextrose/Sodium Chloride (D5-1/2ns -) 1,000 mls @ 42 mls/hr IV ASDIR [facility] Levetiracetam (Keppra Injection -) 500 mg IVPB BID [facility] Last Admin: 11/27/16 10:15 Dose: 500 mg Ondansetron HCl (Zofran Injection) 4 mg IVPB Q4H PRN PRN Reason: NAUSEA AND/OR VOMITING Pantoprazole Sodium (Protonix 40mg Ivpb (Pre-Docked)) 40 mg IVPB DAILY [facility] Last Admin: 11/27/16 10:15 Dose: 40 mg Potassium Phos/Sodium Phos (Phos-Nak Packet -) 1 packet PO DAILY [facility] Last Admin: 11/27/16 10:16 Dose: Not Given - Objective Vital Signs: Vital Signs Temperature 97.1 F L 11/27/16 16:00 Pulse Rate 98 H 11/27/16 16:00 Respiratory Rate 15 11/27/16 17:25 Blood Pressure 112/54 11/27/16 16:00 O2 Sat by Pulse Oximetry (%) 96 11/27/16 14:30 Cardiovascular: Yes: WNL Respiratory: Yes: WNL Gastrointestinal: Yes: WNL Labs: CBC, BMP 11/27/16 05:00 11/27/16 05:00 INR, PTT INR 1.95 (0.82-1.09) H D 11/23/16 01:00 Fibrinogen 279.0 mg/dL (238-498) 11/14/16 06:15 Problem List - Problems (1) Cardiopulmonary arrest Code(s): I46.9 - CARDIAC ARREST, CAUSE UNSPECIFIED (2) DVT (deep venous thrombosis) Code(s): I82.409 - ACUTE EMBOLISM AND THOMBOS UNSP DEEP VN UNSP LOWER EXTREMITY (3) ESRD (end stage renal disease) on dialysis Code(s): N18.6 - END STAGE RENAL DISEASE Z99.2 - DEPENDENCE ON RENAL DIALYSIS (4) Pneumonia Code(s): J18.9 - PNEUMONIA, UNSPECIFIED ORGANISM (5) Respiratory failure Code(s): J96.90 - RESPIRATORY FAILURE, UNSP, UNSP W HYPOXIA OR HYPERCAPNIA (6) Anemia Code(s): D64.9 - ANEMIA, UNSPECIFIED Qualifiers: Other causes of anemia: chronic disease, kidney Assessment/Plan (1) Cardiopulmonary arrest Code(s): I46.9 - CARDIAC ARREST, CAUSE UNSPECIFIED (2) DVT (deep venous thrombosis) Code(s): I82.409 - ACUTE EMBOLISM AND THOMBOS UNSP DEEP VN UNSP LOWER EXTREMITY (3) ESRD (end stage renal disease) on dialysis Code(s): N18.6 - END STAGE RENAL DISEASE Z99.2 - DEPENDENCE ON RENAL DIALYSIS (4) HCV (hepatitis C virus) Code(s): B19.20 - UNSPECIFIED VIRAL HEPATITIS C WITHOUT HEPATIC COMA (5) Metabolic encephalopathy Code(s): G93.41 - METABOLIC ENCEPHALOPATHY (6) Pneumonia Code(s): J18.9 - PNEUMONIA, UNSPECIFIED ORGANISM (7) Respiratory failure Code(s): J96.90 - RESPIRATORY FAILURE, UNSP, UNSP W HYPOXIA OR HYPERCAPNIA (8) Dysphagia Code(s): R13.10 - DYSPHAGIA, UNSPECIFIED Assessment/Plan CONTINUE CURRENT MEDICATIONS AND CARE WEAN OFF PRESSURE SUPPORT 02 SUPPORT TRACHEOSTOMY DISCUSSED WITH SANIYA FROM [facility] SHE WILL ACCEPT PATIENT WITH TRACH/HD ONCE STABLE [phone] PEG REPLACED -> F/U PASTOR ROSS
[2016-11-27] MEDS ORDERED: DEXTROSE 5%-0.45% SALINE 1,000 ML IV SCH (18:15)
--- NOTE | 2016-11-27 21:32 | PN ---
Progress Note (short form) - Note Progress Note: Patient seen and examined s/p trach arousable following simple commands Last Vital Signs Temp Pulse Resp BP Pulse Ox 96.6 F L 93 H 15 124/61 95 11/27/16 22:00 11/27/16 22:00 11/27/16 22:00 11/27/16 22:00 11/27/16 21:00 Cor: RSR, No murmurs, No gallops Lungs: Clear to P&A Abd: Soft, Normal bowel sounds, No organomegaly Ext:No significant edema Abnormal Lab Results 11/21/16 11/27/16 11/27/16 16:15 05:00 05:00 WBC 14.5 H RBC 2.65 L Hgb 9.0 L Hct 26.3 L MCV 99.1 H RDW 21.8 H Plt Count 60 L D ABG pH ABG pO2 at Pt Temp ABG O2 Sat (Measured) ABG O2 Content Potassium 3.4 L BUN 22 H Creatinine 2.4 H Calcium 7.3 L Phosphorus 1.7 L Magnesium 1.4 L D ALT < 6 L D Total Protein 5.1 L Albumin 1.2 L Antibody Screen Positive H Crossmatch See Detail 11/27/16 07:30 WBC RBC Hgb Hct MCV RDW Plt Count ABG pH 7.47 H ABG pO2 at Pt Temp 118.0 H ABG O2 Sat (Measured) 99.1 H ABG O2 Content 12.7 L Potassium BUN Creatinine Calcium Phosphorus Magnesium ALT Total Protein Albumin Antibody Screen Crossmatch Current Medications Acetaminophen (Ofirmev Injection -) 700 mg IVPB Q6H PRN PRN Reason: FEVER Last Admin: 11/26/16 23:44 Dose: 700 mg Acetaminophen (Tylenol Oral Solution -) 650 mg NGT Q6H PRN PRN Reason: FEVER OR PAIN Albumin Human (Albuminar-25) 12.5 gm IVPB Q30M [facility] Stop: 11/28/16 14:46 Albuterol Sulfate (Ventolin 0.083% Nebulizer Soln -) 1 amp NEB Q1H PRN PRN Reason: SHORT OF BREATH/WHEEZING Albuterol/Ipratropium (Duoneb -) 1 amp NEB TIDR [facility] Last Admin: 11/27/16 21:50 Dose: 1 amp Amino Acids (Prosource No Carb Liquid Pkt) 30 ml PO BID@0800,1730 [facility] Last Admin: 11/27/16 18:19 Dose: Not Given Bacitracin (Bacitracin -) 1 applic TP DAILY [facility] Last Admin: 11/27/16 10:16 Dose: 1 applic Calcitriol (Rocaltrol Liquid -) 0.5 mcg NGT DAILY [facility] Last Admin: 11/27/16 10:17 Dose: Not Given Epoetin Cirilo (Procrit -) 10,000 unit IVPUSH ONCE ONE Stop: 11/28/16 13:02 Fat Emulsion Intravenous (Intralipid -) 250 ml IV DAILY@2200 [facility] Last Admin: 11/27/16 22:04 Dose: 250 ml Hydromorphone HCl (Dilaudid Injection -) 2 mg IVPB Q4H PRN PRN Reason: PAIN Stop: 11/28/16 08:35 Last Admin: 11/27/16 18:01 Dose: 2 mg Dextrose/Sodium Chloride (D5-1/2ns -) 1,000 mls @ 42 mls/hr IV ASDIR [facility] Last Admin: 11/27/16 18:19 Dose: 42 mls/hr Levetiracetam (Keppra Injection -) 500 mg IVPB BID [facility] Last Admin: 11/27/16 22:05 Dose: 500 mg Ondansetron HCl (Zofran Injection) 4 mg IVPB Q4H PRN PRN Reason: NAUSEA AND/OR VOMITING Pantoprazole Sodium (Protonix 40mg Ivpb (Pre-Docked)) 40 mg IVPB DAILY [facility] Last Admin: 11/27/16 10:15 Dose: 40 mg Potassium Phos/Sodium Phos (Phos-Nak Packet -) 1 packet PO DAILY [facility] Last Admin: 11/27/16 10:16 Dose: Not Given A/P Intubated 4 times this admission Pneumonia with respiratory failure S/P Seizure following the arrest- ESRD LE edema with severe hypoalbuminemia Right renal complex cyst > 5cms in diameter H/O HCV/liver disease H/O GIB Cachexia Soleal DVT Thrombocytopena/coagulopathy s/p tracheostomy today RLE distal DVT --had been on heparin. Bled actively rectally and hnce hparin was stopped. s/p ivc filter placement thrombocytopnia/coagulopathy --due to sepsis/DIC vrsus undrlying Hp. c liver disease . improved anemia -- chronic disease --ESRD/sepsis Abnormal CT--Lt. humruquang dstructive lesion and hypodensities liver discussed overall poor prognosis with purnima
[2016-11-27] MEDS: FAT EMULSIONS 20% 250 ML PREMIX INFUS.BAG IV SCH (22:04)
[2016-11-28] MEDS: ALBUTEROL SO4 2.5/IPRATROPIUM 0.5 INH SOL 3 ML VIAL.NEB. NEB SCH ×2 (05:56→21:30)
[2016-11-28] MEDS: HYDROmorphone HCL CARPU-JECT 2 MG/1 ML DISP.SYRIN IVPB PRN (06:12)
[2016-11-28 06:39] LABS: BASOPHIL 0.3 % (0-2.0); EOSINOPHIL 1.6 % (0-4.5); MCH 34.2 pg (25.7-33.7); MEAN CELL VOLUME 100.5 fl (80-96); MEAN PLT VOLUME 11.3 fl (7.5-11.1); NEUTROPHILS 86.4 % (42.8-82.8); PLATELET COUNT 50 K/MM3 (134-434); RDW 23.1 % (11.6-15.6); WHITE BLOOD COUNT 18.5 K/mm3 (4.0-10.0)
[2016-11-28 07:15] LABS: ALBUMIN 1.1 g/dl (3.4-5.0); ANION GAP 13 (8-16); CALCIUM 7.1 mg/dL (8.5-10.1); CO2 24 mmol/L (21-32); GLUCOSE,RANDOM 83 mg/dL (74-106); MAGNESIUM 1.9 mg/dL (1.8-2.4)
[2016-11-28 07:21] LABS: ALK PHOS 100 U/L (45-117); BILIRUBIN,TOTAL 0.7 mg/dL (0.2-1.0); CREATININE 2.6 mg/dL (0.55-1.02); PHOSPHOROUS 2.5 mg/dL (2.5-4.9); SGOT/AST 23 U/L (15-37); SGPT/ALT < 6 U/L (12-78)
--- NOTE | 2016-11-28 09:10 | PN ---
Progress Note (short form) - Note Progress Note: s/p feeding jejunostomy clinically stable Xrays reviewed Abdominal exam benign currently tolerating water via J tube May start tube feeding at 1/2 strength as per nutritional consult
[2016-11-28] MEDS: AMINO ACIDS/PROTEIN HYDROLYS 30 ML LIQUID.PKT PO SCH ×2 (09:33→16:55)
[2016-11-28] MEDS: NAPH,MB-DB/K PH,MBDB POWDER PACKET PO SCH (09:34)
[2016-11-28] MEDS: CALCITRIOL 1 MCG/ML BOT NGT SCH (09:34)
[2016-11-28] MEDS: BACITRACIN 30 GM TUBE TOPICAL OINTMENT TP SCH (09:35)
[2016-11-28 09:36] LABS: HYPOCHROMIA 2+
[2016-11-28 09:37] LABS: ANISOCYTOSIS 2+; POLYCHROMASIA FEW; TEAR DROP CELLS 3+
[2016-11-28] MEDS: PANTOPRAZOLE SODIUM 40 MG/100 ML PRE-DOCKED IVPB SCH (09:40)
[2016-11-28] MEDS: levETIRAcetam 500 MG/5 ML INJECTION VIAL IVPB SCH (09:41)
[2016-11-28] MEDS ORDERED: HYDROmorphone HCL CARPU-JECT 2 MG/1 ML DISP.SYRIN IVPB PRN ×2 (11:22→16:31)
--- NOTE | 2016-11-28 11:34 | PN ---
Teaching Attending Note Name of Resident: Sukhwinder Kohler ATTENDING PHYSICIAN STATEMENT I saw and evaluated the patient. I reviewed the resident's note and discussed the case with the resident. I agree with the resident's findings and plan as documented. SUBJECTIVE: Pt seen and examined in the ICU. More alert, awake today. Tolerating free water via J tube. No fevers recorded. Tolerating CPAP/PS trials. OBJECTIVE: Last Vital Signs Temp Pulse Resp BP Pulse Ox 96.3 F L 98 H 14 144/77 100 11/28/16 06:00 11/28/16 11:00 11/28/16 11:00 11/28/16 11:00 11/28/16 11:05 Intake & Output 11/25/16 11/26/16 11/27/16 11/28/16 23:59 23:59 23:59 23:59 Intake Total 750 1166 1670 944 Output Total 200 100 300 Balance 550 1066 1370 944 Weight 114 lb 1.6 oz 113 lb 6.4 oz 117 lb 11.2 oz 117 lb 12.8 oz Gen: vented, awake Heart: RRR Lung: scattered rhonchi Abd: soft, nontender Ext: UE edema CBC, BMP 11/28/16 05:00 11/28/16 05:00 Active Medications Acetaminophen (Ofirmev Injection -) 700 mg IVPB Q6H PRN PRN Reason: FEVER Last Admin: 11/26/16 23:44 Dose: 700 mg Acetaminophen (Tylenol Oral Solution -) 650 mg NGT Q6H PRN PRN Reason: FEVER OR PAIN Albumin Human (Albuminar-25) 12.5 gm IVPB Q30M [facility] Stop: 11/28/16 14:46 Albuterol Sulfate (Ventolin 0.083% Nebulizer Soln -) 1 amp NEB Q1H PRN PRN Reason: SHORT OF BREATH/WHEEZING Albuterol/Ipratropium (Duoneb -) 1 amp NEB TIDR [facility] Last Admin: 11/28/16 05:56 Dose: 1 amp Amino Acids (Prosource No Carb Liquid Pkt) 30 ml PO BID@0800,1730 [facility] Last Admin: 11/28/16 09:33 Dose: Not Given Bacitracin (Bacitracin -) 1 applic TP DAILY [facility] Last Admin: 11/28/16 09:35 Dose: 1 applic Calcitriol (Rocaltrol Liquid -) 0.5 mcg NGT DAILY [facility] Last Admin: 11/28/16 09:34 Dose: Not Given Epoetin Cirilo (Procrit -) 10,000 unit IVPUSH ONCE ONE Stop: 11/28/16 13:02 Fat Emulsion Intravenous (Intralipid -) 250 ml IV DAILY@2200 [facility] Last Admin: 11/27/16 22:04 Dose: 250 ml Hydromorphone HCl (Dilaudid Injection -) 2 mg IVPB Q4H PRN PRN Reason: PAIN Stop: 11/29/16 11:21 Dextrose/Sodium Chloride (D5-1/2ns -) 1,000 mls @ 42 mls/hr IV ASDIR [facility] Last Admin: 11/27/16 18:19 Dose: 42 mls/hr Levetiracetam (Keppra Injection -) 500 mg IVPB BID [facility] Last Admin: 11/28/16 09:41 Dose: 500 mg Ondansetron HCl (Zofran Injection) 4 mg IVPB Q4H PRN PRN Reason: NAUSEA AND/OR VOMITING Pantoprazole Sodium (Protonix 40mg Ivpb (Pre-Docked)) 40 mg IVPB DAILY [facility] Last Admin: 11/28/16 09:40 Dose: 40 mg Potassium Phos/Sodium Phos (Phos-Nak Packet -) 1 packet PO DAILY [facility] Last Admin: 11/28/16 09:34 Dose: Not Given ASSESSMENT AND PLAN: s/p PEA Cardiopulmonary Arrest s/p Hypothermia Protocol s/p Tracheostomy Small Bowel Obstruction s/p ex-lap/small bowel resection/DANNY 11/22/16 Pneumonia s/p Septic Shock Pulmonary HTN ESRD on HD r/o Anoxic Encephalopathy RLE distal DVT GI Bleed Thrombocytopenia - HD per renal - observing off antibiotics per ID - reculture if febrile - monitor H/H - transfuse as needed - spontaneous breathing trials as tolerated - start enteral feeds via J tube - DVT/GI prophylaxis - can monitor on vent floor
[2016-11-28] MEDS ORDERED: DEXTROSE 5%-0.45% SALINE 1,000 ML IV SCH ×2 (11:52→16:31)
[2016-11-28] MEDS ORDERED: ACETAMINOPHEN 1000 MG/100 ML VIAL (NON FORMULARY) IVPB PRN ×2 (11:52→16:31)
[2016-11-28] MEDS ORDERED: ALBUTEROL SO4 0.083% IH SOL 2.5 MG/3 ML VIAL.NEB. NEB PRN ×2 (11:52→16:31)
[2016-11-28] MEDS ORDERED: ACETAMINOPHEN 650 MG/20.3 ML ORAL SOLUTION (CUPS) NGT PRN ×2 (11:52→16:31)
[2016-11-28] MEDS ORDERED: ONDANSETRON 4 MG/2 ML VIAL IVPB PRN ×2 (11:52→16:31)
--- NOTE | 2016-11-28 12:21 | PN ---
Physical Exam: SUBJECTIVE: Patient seen and examined at bedside in the ICU. She's trached and on vent, at normal mental baseline, interactive. OBJECTIVE: Vent settings: AC, RR 15, TV 350, FiO2 35%, PEEP 5 Trached and on Vent Off fentanyle, on dilaudid for pain only Central line (IJ) Day 6 Vital Signs Period Temp Pulse Resp BP Sys/Hodgson Pulse Ox Last 24 Hr 96.3 F-97.4 F 84-111 10-32 112-144/53-92 95-100 GENERAL: Trached and on vent, non-verbal, awake, alert, aware, interactive, RASS +1. LUNGS: Decreased breath sounds HEART: tachycardic, normal S1, S2 without murmur, rub or gallop. ABDOMEN: Soft, tenderness in low abd, absent bowel sounds, J-tube in place. Dressings in place on surgical sites EXTREMITIES: SCDs CBCD WBC 18.5 K/mm3 (4.0-10.0) H 11/28/16 05:00 RBC 2.78 M/mm3 (3.60-5.2) L 11/28/16 05:00 Hgb 9.5 GM/dL (10.7-15.3) L 11/28/16 05:00 Hct 27.9 % (32.4-45.2) L 11/28/16 05:00 MCV 100.5 fl (80-96) H 11/28/16 05:00 MCHC 34.0 g/dl (32.0-36.0) 11/28/16 05:00 RDW 23.1 % (11.6-15.6) H 11/28/16 05:00 Plt Count 50 K/MM3 (134-434) L 11/28/16 05:00 MPV 11.3 fl (7.5-11.1) H D 11/28/16 05:00 CMP Sodium 136 mmol/L (136-145) 11/28/16 05:00 Potassium 3.5 mmol/L (3.5-5.1) 11/28/16 05:00 Chloride 99 mmol/L (98-107) 11/28/16 05:00 Carbon Dioxide 24 mmol/L (21-32) 11/28/16 05:00 Anion Gap 13 (8-16) 11/28/16 05:00 BUN 23 mg/dL (7-18) H 11/28/16 05:00 Creatinine 2.6 mg/dL (0.55-1.02) H 11/28/16 05:00 Creat Clearance w eGFR 17.76 (>60) 11/28/16 05:00 Calcium 7.1 mg/dL (8.5-10.1) L 11/28/16 05:00 Total Bilirubin 0.7 mg/dL (0.2-1.0) 11/28/16 05:00 AST 23 U/L (15-37) 11/28/16 05:00 ALT < 6 U/L (12-78) L 11/28/16 05:00 Alkaline Phosphatase 100 U/L (45-117) 11/28/16 05:00 Total Protein 5.0 g/dl (6.4-8.2) L 11/28/16 05:00 Albumin 1.1 g/dl (3.4-5.0) L 11/28/16 05:00 Intake & Output 11/25/16 11/26/16 11/27/16 11/28/16 23:59 23:59 23:59 23:59 Intake Total 750 1166 1670 944 Output Total 200 100 300 Balance 550 1066 1370 944 Weight 51.755 kg 51.437 kg 53.388 kg 53.433 kg Active Medications Generic Name Dose Route Start Last Admin Trade Name Freq PRN Reason Stop Dose Admin Acetaminophen 650 mg 11/28/16 11:52 Tylenol Oral Solution - NGT Q6H PRN FEVER OR PAIN Acetaminophen 700 mg 11/28/16 11:52 Ofirmev Injection - IVPB Q6H PRN FEVER Albumin Human 12.5 gm 11/28/16 13:15 Albuminar-25 IVPB 11/28/16 14:46 Q30M [facility]IE Albuterol Sulfate 1 amp 11/28/16 11:52 Ventolin 0.083% Nebulizer Soln - NEB Q1H PRN SHORT OF BREATH/WHEEZING Albuterol/Ipratropium 1 amp 11/28/16 14:00 Duoneb - NEB TIDR [facility] Amino Acids 30 ml 11/28/16 17:30 Prosource No Carb Liquid Pkt PO BID@0800,1730 [facility] Bacitracin 1 applic 11/29/16 10:00 Bacitracin - TP DAILY [facility] Calcitriol 0.5 mcg 11/29/16 10:00 Rocaltrol Liquid - NGT DAILY [facility] Epoetin Cirilo 10,000 unit 11/28/16 13:01 Procrit - IVPUSH 11/28/16 13:02 ONCE ONE Fat Emulsion Intravenous 250 ml 11/28/16 22:00 Intralipid - IV DAILY@2200 [facility] Hydromorphone HCl 2 mg 11/28/16 11:22 Dilaudid Injection - IVPB 11/29/16 11:21 Q4H PRN PAIN Dextrose/Sodium Chloride 1,000 mls @ 42 mls/hr 11/28/16 11:52 D5-1/2ns - IV ASDIR [facility] Levetiracetam 500 mg 11/28/16 22:00 Keppra Injection - IVPB BID [facility] Ondansetron HCl 4 mg 11/28/16 11:52 Zofran Injection IVPB Q4H PRN NAUSEA AND/OR VOMITING Pantoprazole Sodium 40 mg 11/29/16 10:00 Protonix 40mg Ivpb (Pre-Docked) IVPB DAILY [facility] Potassium Phos/Sodium Phos 1 packet 11/29/16 10:00 Phos-Nak Packet - PO DAILY [facility] Microbiology 11/23/16 11:15 Blood - Post-Dialysis Blood Culture - Final NO GROWTH AFTER 5 DAYS INCUBATION 11/23/16 11:15 Blood - Post-Dialysis Blood Culture - Final NO GROWTH AFTER 5 DAYS INCUBATION Imaging KUB 11/27: A portable abdomen study shows contrast injected into a left abdominal catheter/J-tube which fills a small bowel loop which is part of the jejunum. A gross obstruction or leak is not appreciated. There is an IVC filter, abdominal and pelvic clips as well as a large heart with dense left base. There are external monitors. There may be a pelvic probe CXR 11/28: LLL atelectasis with underlying PNA cannot be ruled out CXR 11/27: Since 11/26/2016, the tracheostomy tube and right jugular line with large heart, sclerotic unfolded aorta and congestive changes with bibasilar findings and deformed shoulders persists CXR 11/24: New left basilar opacity with effacement of the left diaphragm blunting of the left costophrenic angle: Atelectasis likely associated with left pleural effusion ASSESSMENT/PLAN: 80 yo F h/o HTN, GIB, chronic anemia 2/2 ESRD on HD, Hep C admitted to the hospital originally for cardiac arrest on 10/22. She's now trached due to respiratory failure requiring and sustained significant anoxic brain injury and recovered from sepsis. Patient was readmitted to the ICU s/p J-tube placement and exploratory lap for adhesion and small bowel resection. Jtube became leaky yesterday and it's re-inserted today in AM in the OR. GI: s/p J-tube placement and small bowel resection - J-tube reinserted yesterday without complication today - Routine wound care for surgical site and decub. ulcer - Start feeding today - Dilaudid 2mg PRN for pain Pulm: Chronic respiratory insufficiency, trached and on vent - Trached on vent: see settings above - Maintain O2 Sat. > 88% - Daily SBT - Nebulizers PRN - Daily CXR ID: Severe sepsis - Lactic acid normalized - WBC remains elevated - Observe off abx Renal/: ESRD on HD - Worsening Cr, will get dialysis today Heme: Chronic anemia 2/2 ESRD - HGB stable at baseline - On epogen - Transfuse as needed * No blood transfusion on HD - F/u H&H Cardiac: S/p cardiac arrest and hypothermic protocol - Not on pressor maintain MAP > 65% - Hold all anti-BP meds Neuro: Seizure disorder - Cont. anti-epileptic medications - Cont. to monitor neuro function FEN - No IVF - Normal lytes, cont. monitor - Tube feed Pivot 1.5 Prophylaxis - DVT: not indicated due to h/o GIB and s/p surgery - GI: on PPI Disposition - Transfer to [address] [place] [address] Code status - Full code Visit type - Emergency Visit Emergency Visit: No - New Patient This patient is new to me today: No - Critical Care Critical Care patient: Yes Total Critical Care Time (in minutes): 45 Critical Care Statement: The care of this patient involved high complexity decision making to prevent further life threatening deterioration of the patient 's condition and/or to evalute & treat vital organ system(s) failure or risk of failure.
[2016-11-28] MEDS: ALBUMIN HUMAN 25% 50 ML VIAL IVPB SCH ×4 (13:00→14:30)
[2016-11-28] MEDS ORDERED: EPOETIN ALFA 10,000 UNIT/1 ML VIAL IVPUSH ONE ×2 (13:01)
[2016-11-28 13:08] LABS: CREATININE 2.7 mg/dL (0.55-1.02)
[2016-11-28] MEDS ORDERED: ALBUMIN HUMAN 25% 50 ML VIAL IVPB SCH (13:15)
[2016-11-28] MEDS ORDERED: ALBUTEROL SO4 2.5/IPRATROPIUM 0.5 INH SOL 3 ML VIAL.NEB. NEB SCH (14:00)
--- NOTE | 2016-11-28 16:08 | PN ---
Progress Note, Physician Chief Complaint: SEEN IN ICU, HD IN PROCESS NO ACUTE DISTRESS ALERT - Current Medication List Current Medications: Active Medications Acetaminophen (Tylenol Oral Solution -) 650 mg NGT Q6H PRN PRN Reason: FEVER OR PAIN Acetaminophen (Ofirmev Injection -) 700 mg IVPB Q6H PRN PRN Reason: FEVER Albuterol Sulfate (Ventolin 0.083% Nebulizer Soln -) 1 amp NEB Q1H PRN PRN Reason: SHORT OF BREATH/WHEEZING Albuterol/Ipratropium (Duoneb -) 1 amp NEB TIDR [facility] Last Admin: 11/28/16 14:07 Dose: 1 amp Amino Acids (Prosource No Carb Liquid Pkt) 30 ml PO BID@0800,1730 [facility] Bacitracin (Bacitracin -) 1 applic TP DAILY [facility] Calcitriol (Rocaltrol Liquid -) 0.5 mcg NGT DAILY [facility] Fat Emulsion Intravenous (Intralipid -) 250 ml IV DAILY@2200 [facility] Hydromorphone HCl (Dilaudid Injection -) 2 mg IVPB Q4H PRN PRN Reason: PAIN Stop: 11/29/16 11:21 Last Admin: 11/28/16 15:01 Dose: 2 mg Dextrose/Sodium Chloride (D5-1/2ns -) 1,000 mls @ 42 mls/hr IV ASDIR [facility] Last Admin: 11/28/16 15:00 Dose: Not Given Levetiracetam (Keppra Injection -) 500 mg IVPB BID [facility] Ondansetron HCl (Zofran Injection) 4 mg IVPB Q4H PRN PRN Reason: NAUSEA AND/OR VOMITING Pantoprazole Sodium (Protonix 40mg Ivpb (Pre-Docked)) 40 mg IVPB DAILY [facility] Potassium Phos/Sodium Phos (Phos-Nak Packet -) 1 packet PO DAILY [facility] - Objective Vital Signs: Vital Signs Temperature 97.6 F 11/28/16 14:00 Pulse Rate 109 H 11/28/16 14:00 Respiratory Rate 19 11/28/16 14:07 Blood Pressure 117/64 11/28/16 14:00 O2 Sat by Pulse Oximetry (%) 100 11/28/16 11:05 Constitutional: Yes: No Distress Eyes: Yes: WNL HENT: Yes: WNL Neck: Yes: WNL Cardiovascular: Yes: WNL Respiratory: Yes: Mechanically Ventilated Gastrointestinal: Yes: Distention, Tenderness Genitourinary: Yes: Other Musculoskeletal: Yes: Muscle Weakness Extremities: Yes: WNL Edema: Yes Peripheral Pulses WNL: Yes Integumentary: Yes: Pressure Ulcer, Rash, Venous Stasis Changes Wound/Incision: Yes: Dressing Dry and Intact Neurological: Yes: Pre-Existing Deficit, Weakness ...Motor Strength: LLE, RLE Psychiatric: Yes: Other Labs: CBC, BMP 11/28/16 05:00 INR, PTT INR 1.95 (0.82-1.09) H D 11/23/16 01:00 Fibrinogen 279.0 mg/dL (238-498) 11/14/16 06:15 Problem List - Problems (1) Cardiopulmonary arrest Code(s): I46.9 - CARDIAC ARREST, CAUSE UNSPECIFIED (2) DVT (deep venous thrombosis) Code(s): I82.409 - ACUTE EMBOLISM AND THOMBOS UNSP DEEP VN UNSP LOWER EXTREMITY (3) ESRD (end stage renal disease) on dialysis Code(s): N18.6 - END STAGE RENAL DISEASE Z99.2 - DEPENDENCE ON RENAL DIALYSIS (4) HCV (hepatitis C virus) Code(s): B19.20 - UNSPECIFIED VIRAL HEPATITIS C WITHOUT HEPATIC COMA (5) Metabolic encephalopathy Code(s): G93.41 - METABOLIC ENCEPHALOPATHY (6) Pneumonia Code(s): J18.9 - PNEUMONIA, UNSPECIFIED ORGANISM (7) Respiratory failure Code(s): J96.90 - RESPIRATORY FAILURE, UNSP, UNSP W HYPOXIA OR HYPERCAPNIA (8) Dysphagia Code(s): R13.10 - DYSPHAGIA, UNSPECIFIED Assessment/Plan CONTINUE CURRENT MEDICATIONS AND CARE WEAN OFF PRESSURE SUPPORT 02 SUPPORT TRACHEOSTOMY TRANSFER TO [facility] HD PER RENAL WILL NEED PROCRIT AND PRBC TRANSFUSION DISCUSSED WITH SANIYA FROM [facility] SHE WILL ACCEPT PATIENT WITH TRACH/HD ONCE STABLE [phone]
--- NOTE | 2016-11-28 16:14 | PN ---
Progress Note, Physician History of Present Illness: Pt seen and examined at bedside. She is awake and alert. She complains of abdominal discomfort. She was started on feeds today. She is tolerating HD. - Current Medication List Current Medications: Active Medications Acetaminophen (Tylenol Oral Solution -) 650 mg NGT Q6H PRN PRN Reason: FEVER OR PAIN Acetaminophen (Ofirmev Injection -) 700 mg IVPB Q6H PRN PRN Reason: FEVER Albuterol Sulfate (Ventolin 0.083% Nebulizer Soln -) 1 amp NEB Q1H PRN PRN Reason: SHORT OF BREATH/WHEEZING Albuterol/Ipratropium (Duoneb -) 1 amp NEB TIDR [facility] Last Admin: 11/28/16 14:07 Dose: 1 amp Amino Acids (Prosource No Carb Liquid Pkt) 30 ml PO BID@0800,1730 [facility] Bacitracin (Bacitracin -) 1 applic TP DAILY [facility] Calcitriol (Rocaltrol Liquid -) 0.5 mcg NGT DAILY [facility] Fat Emulsion Intravenous (Intralipid -) 250 ml IV DAILY@2200 [facility] Hydromorphone HCl (Dilaudid Injection -) 2 mg IVPB Q4H PRN PRN Reason: PAIN Stop: 11/29/16 11:21 Last Admin: 11/28/16 15:01 Dose: 2 mg Dextrose/Sodium Chloride (D5-1/2ns -) 1,000 mls @ 42 mls/hr IV ASDIR [facility] Last Admin: 11/28/16 15:00 Dose: Not Given Levetiracetam (Keppra Injection -) 500 mg IVPB BID [facility] Ondansetron HCl (Zofran Injection) 4 mg IVPB Q4H PRN PRN Reason: NAUSEA AND/OR VOMITING Pantoprazole Sodium (Protonix 40mg Ivpb (Pre-Docked)) 40 mg IVPB DAILY [facility] Potassium Phos/Sodium Phos (Phos-Nak Packet -) 1 packet PO DAILY [facility] - Objective Vital Signs: Vital Signs Temperature 97.6 F 11/28/16 14:00 Pulse Rate 109 H 11/28/16 14:00 Respiratory Rate 19 11/28/16 14:07 Blood Pressure 117/64 11/28/16 14:00 O2 Sat by Pulse Oximetry (%) 100 11/28/16 11:05 Constitutional: Yes: Calm Eyes: Yes: Conjunctiva Clear HENT: Yes: Atraumatic Neck: Yes: Other (trache) Cardiovascular: Yes: S1, S2 Respiratory: Yes: Mechanically Ventilated Gastrointestinal: Yes: Soft, Other (peg tube) Genitourinary: Yes: Incontinence Musculoskeletal: Yes: Muscle Weakness Edema: Yes Edema: LLE: Trace, RLE: Trace Neurological: Yes: Oriented Psychiatric: Yes: Oriented Labs: CBC, BMP 11/28/16 05:00 INR, PTT INR 1.95 (0.82-1.09) H D 11/23/16 01:00 Fibrinogen 279.0 mg/dL (238-498) 11/14/16 06:15 Problem List - Problems (1) Cardiopulmonary arrest Code(s): I46.9 - CARDIAC ARREST, CAUSE UNSPECIFIED (2) DVT (deep venous thrombosis) Code(s): I82.409 - ACUTE EMBOLISM AND THOMBOS UNSP DEEP VN UNSP LOWER EXTREMITY (3) ESRD (end stage renal disease) on dialysis Code(s): N18.6 - END STAGE RENAL DISEASE Z99.2 - DEPENDENCE ON RENAL DIALYSIS (4) HCV (hepatitis C virus) Code(s): B19.20 - UNSPECIFIED VIRAL HEPATITIS C WITHOUT HEPATIC COMA (5) Respiratory failure Code(s): J96.90 - RESPIRATORY FAILURE, UNSP, UNSP W HYPOXIA OR HYPERCAPNIA Assessment/Plan Current Medications Generic Name Dose Route Start Last Admin Trade Name Freq PRN Reason Stop Dose Admin Acetaminophen 650 mg 11/28/16 11:52 Tylenol Oral Solution - NGT Q6H PRN FEVER OR PAIN Acetaminophen 700 mg 11/28/16 11:52 Ofirmev Injection - IVPB Q6H PRN FEVER Albuterol Sulfate 1 amp 11/28/16 11:52 Ventolin 0.083% Nebulizer Soln - NEB Q1H PRN SHORT OF BREATH/WHEEZING Albuterol/Ipratropium 1 amp 11/28/16 14:00 11/28/16 14:07 Duoneb - NEB 1 amp TIDR MARIE Administration Amino Acids 30 ml 11/28/16 17:30 Prosource No Carb Liquid Pkt PO BID@0800,1730 [facility] Bacitracin 1 applic 11/29/16 10:00 Bacitracin - TP DAILY [facility] Calcitriol 0.5 mcg 11/29/16 10:00 Rocaltrol Liquid - NGT DAILY [facility] Fat Emulsion Intravenous 250 ml 11/28/16 22:00 Intralipid - IV DAILY@2200 [facility] Hydromorphone HCl 2 mg 11/28/16 11:22 11/28/16 15:01 Dilaudid Injection - IVPB 11/29/16 11:21 2 mg Q4H PRN Administration PAIN Dextrose/Sodium Chloride 1,000 mls @ 42 mls/hr 11/28/16 11:52 11/28/16 15:00 D5-1/2ns - IV Not Given ASDIR [facility] Levetiracetam 500 mg 11/28/16 22:00 Keppra Injection - IVPB BID [facility] Ondansetron HCl 4 mg 11/28/16 11:52 Zofran Injection IVPB Q4H PRN NAUSEA AND/OR VOMITING Pantoprazole Sodium 40 mg 11/29/16 10:00 Protonix 40mg Ivpb (Pre-Docked) IVPB DAILY [facility] Potassium Phos/Sodium Phos 1 packet 11/29/16 10:00 Phos-Nak Packet - PO DAILY [facility] 11/13/16 cultures no growth to date 11/16/16 blood cultures negative to date Impression 1. ESRD 2. s/p cardiopulmonary arrest 3. acute respiratory failure 4. Pneumonia 5. DVT of right leg 6. S/P Seizure following the arrest 7. Right renal complex cyst > 5cms in diameter 8. Anemia 9. Thrombocytopenia 10. H/O HCV 11. GI bleed 12. s/p exploratory laparotomy, lysis of adhesions, small bowel resection, and feeding jejunostomy Plan - pt is tolerating HD today - please stop fluids if she tolerated feeds - monitor labs and hg - will cont epogen for anemia - surgery follow up for abdominal pain - vent support, weaning as tolerated - reviewed monitor Dr Espino
[2016-11-28 17:18] LABS: CREATININE 1.1 mg/dL (0.55-1.02)
[2016-11-28] MEDS ORDERED: AMINO ACIDS/PROTEIN HYDROLYS 30 ML LIQUID.PKT PO SCH (17:30)
[2016-11-28] MEDS ORDERED: FAT EMULSIONS 20% 250 ML PREMIX INFUS.BAG IV SCH ×2 (22:00)
[2016-11-28] MEDS ORDERED: levETIRAcetam 500 MG/5 ML INJECTION VIAL IVPB SCH ×2 (22:00)
[2016-11-29] MEDS: ALBUTEROL SO4 2.5/IPRATROPIUM 0.5 INH SOL 3 ML VIAL.NEB. NEB SCH ×3 (05:35→22:20)
--- NOTE | 2016-11-29 06:59 | DS ---
Physical Examination Vital Signs: Vital Signs Temperature 97.5 F L 11/28/16 18:15 Pulse Rate 98 H 11/28/16 19:59 Respiratory Rate 18 11/29/16 06:49 Blood Pressure 129/60 11/28/16 19:59 O2 Sat by Pulse Oximetry (%) 100 11/28/16 22:00 Findings/Remarks: ON HEMODIALYSIS, J-TUBE FEEDING, TRACHEOSTOMY ON VENT, CHRONICALLY ILL PATIENT Constitutional: Yes: Mild Distress Eyes: Yes: WNL HENT: Yes: WNL Neck: Yes: WNL Cardiovascular: Yes: WNL Respiratory: Yes: Mechanically Ventilated Gastrointestinal: Yes: Other (JTUBE FUNCTIONING) ...Rectal Exam: Yes: WNL Renal/: Yes: Other Musculoskeletal: Yes: Muscle Weakness Extremities: Yes: Other Edema: No Peripheral Pulses WNL: Yes Integumentary: Yes: Pressure Ulcer, Rash, Venous Stasis Changes Wound/Incision: Yes: Dressing Dry and Intact, Unapproximated Neurological: Yes: Pre-Existing Deficit ...Motor Strength: LUE, LLE, RUE, RLE Psychiatric: Yes: Other Labs: CBC, BMP 11/28/16 05:00 11/28/16 15:45 Discharge Summary Reason For Visit: PNEUMONIA Current Active Problems Anemia (Acute) Anoxic brain damage (Acute) Cardiopulmonary arrest (Acute) DVT (deep venous thrombosis) (Acute) Dysphagia (Acute) ESRD (end stage renal disease) on dialysis (Acute) Fever (Acute) GI bleeding (Acute) HCV (hepatitis C virus) (Acute) Metabolic encephalopathy (Acute) Pneumonia (Acute) Respiratory failure (Acute) Shock (Acute) Status post exploratory laparotomy (Acute) Procedures: Principal: JTUBE SURGERY Other Procedures: TRACHEOSTOMY Hospital Course: 80 Y/O FEMALE S/P CARDIAC ARREST X 2, RESP FAILURE ---TRACHEOSTOMY, ON HEMODIALYSIS, JTUBE PLACE FOR FEEDS, MULTIPLE LUNG,URINE INFECTIONS TREATED WITH IV ABX, WILL NEED LTAC FOR PROPER PLACEMENT. Condition: Poor - Instructions Diet, Activity, Other Instructions: JTUBE TO GOAL TOLERATED Referrals: Carlyle Valente MD [Primary Care Provider] - Disposition: [facility] - Home Medications Comprehensive Discharge Medication List: Ambulatory Orders Acetaminophen [Tylenol -] 650 mg PO Q6H PRN 10/22/16 Albuterol 2.5/Ipratropium 0.5 [Duoneb -] 1 neb NEB Q4H 10/30/16 Amlodipine Besylate [Norvasc -] 10 mg PO DAILY 10/30/16 Calcium Carbonate/Vitamin D3 [Calcium 600 + Vit D Tablet] 1 tablet PO DAILY 03/10 Carvedilol [Coreg] 25 mg PO BID 10/30/16 Diphenhydramine HCl [Benadryl -] 25 mg PO ONCE 10/30/16 Folic Acid/Vit Bcomp,C [Dialyvite Tablet] 1 each PO DAILY 10/30/16 Loperamide HCl [Imodium -] 2 mg PO Q4H 10/30/16 [place]-3/Dha/Epa/Fish Oil [[place] 3 500 Softgel] 1 tablet PO DAILY 10/30/16
[2016-11-29] MEDS ORDERED: ONDANSETRON *ODT* 4 MG TABLET SL PRN ×2 (07:00→15:26)
[2016-11-29] MEDS ORDERED: ACETAMINOPHEN 650 MG/20.3 ML ORAL SOLUTION (CUPS) PO PRN (07:00)
[2016-11-29] MEDS ORDERED: oxyCODONE HCL 5 MG TABLET PEG PRN (07:04)
[2016-11-29 07:29] LABS: MCH 33.9 pg (25.7-33.7); MCHC 33.7 g/dl (32.0-36.0); MEAN CELL VOLUME 100.4 fl (80-96); MEAN PLT VOLUME 10.6 fl (7.5-11.1); RDW 22.7 % (11.6-15.6); WHITE BLOOD COUNT 10.9 K/mm3 (4.0-10.0)
[2016-11-29 08:15] LABS: CALCIUM 7.5 mg/dL (8.5-10.1); MAGNESIUM 1.6 mg/dL (1.8-2.4); PHOSPHOROUS 1.9 mg/dL (2.5-4.9)
[2016-11-29 08:46] LABS: PLATELET COUNT 32 K/MM3 (134-434)
[2016-11-29] MEDS: AMINO ACIDS/PROTEIN HYDROLYS 30 ML LIQUID.PKT PO SCH ×2 (08:50→17:08)
[2016-11-29] MEDS ORDERED: BACITRACIN 30 GM TUBE TOPICAL OINTMENT TP SCH ×2 (10:00)
[2016-11-29] MEDS ORDERED: CALCITRIOL 1 MCG/ML BOT NGT SCH ×2 (10:00)
[2016-11-29] MEDS ORDERED: PANTOPRAZOLE SOD 40 MG SUSPENSION PACKET NGT SCH (10:00)
[2016-11-29] MEDS ORDERED: PANTOPRAZOLE SODIUM 40 MG/100 ML PRE-DOCKED IVPB SCH ×2 (10:00)
[2016-11-29] MEDS ORDERED: NAPH,MB-DB/K PH,MBDB POWDER PACKET PO SCH ×2 (10:00)
[2016-11-29] MEDS ORDERED: ASCORBIC ACID 500 MG TABLET (FP) PO SCH (10:00)
[2016-11-29] MEDS ORDERED: ZINC SULFATE 220 MG CAPSULE (FP) PEG SCH (10:00)
[2016-11-29] MEDS ORDERED: levETIRAcetam 500 MG/5 ML ORAL SOLUTION (UNIT-DOSE CUPS) PEG SCH (10:00)
--- NOTE | 2016-11-29 11:22 | PN ---
Progress Note, Physician History of Present Illness: Awake, alert appearing Afebrile WBC 10.9 Sputum c/s mixed organisms - Current Medication List Current Medications: Active Medications Acetaminophen (Tylenol Oral Solution -) 650 mg PO Q6H PRN PRN Reason: FEVER OR PAIN Albuterol Sulfate (Ventolin 0.083% Nebulizer Soln -) 1 amp NEB Q1H PRN PRN Reason: SHORT OF BREATH/WHEEZING Albuterol/Ipratropium (Duoneb -) 1 amp NEB TIDR [facility] Last Admin: 11/29/16 05:35 Dose: 1 amp Amino Acids (Prosource No Carb Liquid Pkt) 30 ml PO BID@0800,1730 [facility] Last Admin: 11/29/16 08:50 Dose: 30 ml Ascorbic Acid (Vitamin C -) 500 mg PO DAILY [facility] Last Admin: 11/29/16 10:59 Dose: 500 mg Bacitracin (Bacitracin -) 1 applic TP DAILY [facility] Last Admin: 11/29/16 10:59 Dose: 1 applic Calcitriol (Rocaltrol Liquid -) 0.5 mcg NGT DAILY [facility] Last Admin: 11/29/16 11:01 Dose: 0.5 mcg Dextrose/Sodium Chloride (D5-1/2ns -) 1,000 mls @ 42 mls/hr IV ASDIR [facility] Last Admin: 11/28/16 16:57 Dose: 42 mls/hr Levetiracetam (Keppra Oral Solution -) 500 mg PEG BID [facility] Last Admin: 11/29/16 11:02 Dose: 500 mg Ondansetron HCl (Zofran Odt -) 4 mg SL Q8H PRN PRN Reason: NAUSEA AND/OR VOMITING Oxycodone HCl (Roxicodone -) 5 mg PEG Q6H PRN PRN Reason: PAIN Pantoprazole Sodium (Protonix Packets For Oral Suspension -) 40 mg NGT DAILY [facility] Last Admin: 11/29/16 10:59 Dose: 40 mg Zinc Sulfate (Orazinc -) 220 mg PEG DAILY [facility] Last Admin: 11/29/16 10:59 Dose: 220 mg - Objective Vital Signs: Vital Signs Temperature 98.9 F 11/29/16 06:00 Pulse Rate 121 H 11/29/16 06:00 Respiratory Rate 18 11/29/16 06:49 Blood Pressure 152/73 11/29/16 06:00 O2 Sat by Pulse Oximetry (%) 100 11/28/16 22:00 Constitutional: Yes: No Distress, Cachectic Eyes: Yes: Conjunctiva Clear Cardiovascular: Yes: Regular Rate and Rhythm, S1, S2 Respiratory: Yes: Diminished Gastrointestinal: Yes: Normal Bowel Sounds, Soft, Other (+ partial abdominal wound dehiscence) Edema: Yes Edema: LLE: 1+, RLE: 1+ Labs: CBC, BMP 11/29/16 06:40 11/29/16 06:40 INR, PTT INR 1.95 (0.82-1.09) H D 11/23/16 01:00 Fibrinogen 279.0 mg/dL (238-498) 11/14/16 06:15 Assessment/Plan S/P cardiopulmonary arrest/ respiratory failure Post op J-tube / laparotomy/ DANNY Leukocytosis- improved Cirrhosis Observe off antibiotics Surgical follow up
--- NOTE | 2016-11-29 13:45 | PN ---
Progress Note, Physician History of Present Illness: 80 yr old female s/p recent ex lap and extensive lysis of adhesions and insertion of feeding jejunostomy recoverying well overall. Noticed by Nurse this am the presence of bulging in the incision and extensive drainage on Exam there appears to be dehiscence of the fascia without evisceration. A/P 80 yr old with Ascites, renal failure, malnutrition, and mechanical ventilation , all risks factors for wound dehiscence. Will take to OR for wound washout debridement and closure. Discussed findings with and obtained verbal consent over the phone. - Current Medication List Current Medications: Active Medications Acetaminophen (Tylenol Oral Solution -) 650 mg PO Q6H PRN PRN Reason: FEVER OR PAIN Albuterol Sulfate (Ventolin 0.083% Nebulizer Soln -) 1 amp NEB Q1H PRN PRN Reason: SHORT OF BREATH/WHEEZING Albuterol/Ipratropium (Duoneb -) 1 amp NEB TIDR [facility] Last Admin: 11/29/16 05:35 Dose: 1 amp Amino Acids (Prosource No Carb Liquid Pkt) 30 ml PO BID@0800,1730 [facility] Last Admin: 11/29/16 08:50 Dose: 30 ml Ascorbic Acid (Vitamin C -) 500 mg PO DAILY [facility] Last Admin: 11/29/16 10:59 Dose: 500 mg Bacitracin (Bacitracin -) 1 applic TP DAILY [facility] Last Admin: 11/29/16 10:59 Dose: 1 applic Calcitriol (Rocaltrol Liquid -) 0.5 mcg NGT DAILY [facility] Last Admin: 11/29/16 11:01 Dose: 0.5 mcg Dextrose/Sodium Chloride (D5-1/2ns -) 1,000 mls @ 42 mls/hr IV ASDIR [facility] Last Admin: 11/28/16 16:57 Dose: 42 mls/hr Levetiracetam (Keppra Oral Solution -) 500 mg PEG BID [facility] Last Admin: 11/29/16 11:02 Dose: 500 mg Ondansetron HCl (Zofran Odt -) 4 mg SL Q8H PRN PRN Reason: NAUSEA AND/OR VOMITING Oxycodone HCl (Roxicodone -) 5 mg PEG Q6H PRN PRN Reason: PAIN Pantoprazole Sodium (Protonix Packets For Oral Suspension -) 40 mg NGT DAILY [facility] Last Admin: 11/29/16 10:59 Dose: 40 mg Zinc Sulfate (Orazinc -) 220 mg PEG DAILY [facility] Last Admin: 11/29/16 10:59 Dose: 220 mg - Objective Vital Signs: Vital Signs Temperature 98.8 F 11/29/16 10:00 Pulse Rate 116 H 11/29/16 12:04 Respiratory Rate 11/29/16 13:35 Blood Pressure 116/65 11/29/16 12:04 O2 Sat by Pulse Oximetry (%) 100 11/29/16 09:45 Labs: CBC, BMP 11/29/16 06:40 11/29/16 06:40 INR, PTT INR 1.95 (0.82-1.09) H D 11/23/16 01:00 Fibrinogen 279.0 mg/dL (238-498) 11/14/16 06:15
[2016-11-29] MEDS ORDERED: ROCURONIUM BROMIDE 50 MG/5 ML VIAL ONE (13:49)
[2016-11-29] MEDS ORDERED: ceFAZolin SODIUM 1 GM VIAL IVPB ONE (14:12)
[2016-11-29] MEDS ORDERED: HYDROmorphone HCL CARPU-JECT 1 MG/1 ML DISP.SYRIN IVPUSH PRN (14:41)
--- NOTE | 2016-11-29 14:57 | OP ---
Operative Note - Note: Operative Date: 11/29/16 Pre-Operative Diagnosis: partial wound dehiscence Operation: wound exploration, irrigation and closure with retention sutures and wound vac Findings: sutures intact fascial tear Post-Operative Diagnosis: Same as Pre-op Surgeon: Salvador Ignacio Account Service Representative: Nam Ledesma Anesthesia: General Estimated Blood Loss (mls): 5
--- NOTE | 2016-11-29 15:12 | SURG ---
Surgery Operations Coordinator Note Operations Coordinator: Nam Ledesma PA-C Date of Service: 11/29/16 Diagnosis: Partial wound dehiscence (midline incision from ex-lap earlier in the week); Procedure: Wound exploration, irrigation and closure with retention sutures and wound vac I was present for the entirety of the operative procedure. For further detail, please refer to operative report. Visit type - Case Type Case Type: ED Admission
[2016-11-29] MEDS ORDERED: ALBUTEROL SO4 0.083% IH SOL 2.5 MG/3 ML VIAL.NEB. NEB PRN (15:26)
--- NOTE | 2016-11-29 17:06 | PN ---
Progress Note, Physician History of Present Illness: Pt seen and examined at bedside. She is awake and appears comfortable. She is now in the medical [facility]. She remains on vent. - Current Medication List Current Medications: Active Medications Acetaminophen (Tylenol Oral Solution -) 650 mg PO Q6H PRN PRN Reason: FEVER OR PAIN Albuterol Sulfate (Ventolin 0.083% Nebulizer Soln -) 1 amp NEB Q1H PRN PRN Reason: SHORT OF BREATH/WHEEZING Albuterol/Ipratropium (Duoneb -) 1 amp NEB TIDR [facility] Amino Acids (Prosource No Carb Liquid Pkt) 30 ml PO BID@0800,1730 [facility] Ascorbic Acid (Vitamin C -) 500 mg PO DAILY [facility] Bacitracin (Bacitracin -) 1 applic TP DAILY [facility] Calcitriol (Rocaltrol Liquid -) 0.5 mcg NGT DAILY [facility] Levetiracetam (Keppra Oral Solution -) 500 mg PEG BID [facility] Ondansetron HCl (Zofran Odt -) 4 mg SL Q8H PRN PRN Reason: NAUSEA AND/OR VOMITING Oxycodone HCl (Roxicodone -) 5 mg PEG Q6H PRN PRN Reason: PAIN Pantoprazole Sodium (Protonix Packets For Oral Suspension -) 40 mg NGT DAILY [facility] Zinc Sulfate (Orazinc -) 220 mg PEG DAILY [facility] - Objective Vital Signs: Vital Signs Temperature 98 F 11/29/16 16:20 Pulse Rate 109 H 11/29/16 16:20 Respiratory Rate 15 11/29/16 16:20 Blood Pressure 100/49 11/29/16 16:20 O2 Sat by Pulse Oximetry (%) 100 11/29/16 16:20 Constitutional: Yes: Calm Eyes: Yes: Conjunctiva Clear Neck: Yes: Other (trache) Cardiovascular: Yes: S1, S2 Respiratory: Yes: Mechanically Ventilated Gastrointestinal: Yes: Other (peg, dressing in place) Genitourinary: Yes: Incontinence Musculoskeletal: Yes: Muscle Weakness Edema: No Wound/Incision: Yes: Dressing Dry and Intact Labs: CBC, BMP 11/29/16 06:40 11/29/16 06:40 INR, PTT INR 1.95 (0.82-1.09) H D 11/23/16 01:00 Fibrinogen 279.0 mg/dL (238-498) 11/14/16 06:15 Problem List - Problems (1) Cardiopulmonary arrest Code(s): I46.9 - CARDIAC ARREST, CAUSE UNSPECIFIED (2) DVT (deep venous thrombosis) Code(s): I82.409 - ACUTE EMBOLISM AND THOMBOS UNSP DEEP VN UNSP LOWER EXTREMITY (3) ESRD (end stage renal disease) on dialysis Code(s): N18.6 - END STAGE RENAL DISEASE Z99.2 - DEPENDENCE ON RENAL DIALYSIS (4) HCV (hepatitis C virus) Code(s): B19.20 - UNSPECIFIED VIRAL HEPATITIS C WITHOUT HEPATIC COMA (5) Respiratory failure Code(s): J96.90 - RESPIRATORY FAILURE, UNSP, UNSP W HYPOXIA OR HYPERCAPNIA Assessment/Plan Current Medications Generic Name Dose Route Start Last Admin Trade Name Freq PRN Reason Stop Dose Admin Acetaminophen 650 mg 11/29/16 15:26 Tylenol Oral Solution - PO Q6H PRN FEVER OR PAIN Albuterol Sulfate 1 amp 11/29/16 15:26 Ventolin 0.083% Nebulizer Soln - NEB Q1H PRN SHORT OF BREATH/WHEEZING Albuterol/Ipratropium 1 amp 11/29/16 22:00 Duoneb - NEB TIDR [facility] Amino Acids 30 ml 11/29/16 17:30 Prosource No Carb Liquid Pkt PO BID@0800,1730 [facility] Ascorbic Acid 500 mg 11/30/16 10:00 Vitamin C - PO DAILY [facility] Bacitracin 1 applic 11/30/16 10:00 Bacitracin - TP DAILY [facility] Calcitriol 0.5 mcg 11/30/16 10:00 Rocaltrol Liquid - NGT DAILY [facility] Levetiracetam 500 mg 11/29/16 22:00 Keppra Oral Solution - PEG BID [facility] Ondansetron HCl 4 mg 11/29/16 15:26 Zofran Odt - SL Q8H PRN NAUSEA AND/OR VOMITING Oxycodone HCl 5 mg 11/29/16 15:26 Roxicodone - PEG Q6H PRN PAIN Pantoprazole Sodium 40 mg 11/30/16 10:00 Protonix Packets For Oral Suspension - NGT DAILY [facility] Zinc Sulfate 220 mg 11/30/16 10:00 Orazinc - PEG DAILY [facility] 11/13/16 cultures no growth to date 11/16/16 blood cultures negative to date Impression 1. ESRD 2. s/p cardiopulmonary arrest 3. acute respiratory failure 4. Pneumonia 5. DVT of right leg 6. S/P Seizure following the arrest 7. Right renal complex cyst > 5cms in diameter 8. Anemia 9. Thrombocytopenia 10. H/O HCV 11. GI bleed 12. s/p exploratory laparotomy, lysis of adhesions, small bowel resection, and feeding jejunostomy Plan - will arrange for HD in am - replace potassium - cont feeds - wound care - monitor labs and hg - will cont epogen for anemia - surgery follow up for abdominal pain - vent support, weaning as tolerated Dr Espino
[2016-11-29] MEDS: ACETAMINOPHEN 650 MG/20.3 ML ORAL SOLUTION (CUPS) PO PRN (17:07)
[2016-11-29] MEDS: oxyCODONE HCL 5 MG TABLET PEG PRN (17:08)
[2016-11-29] MEDS ORDERED: POTASSIUM CHLORIDE 40 MEQ/30 ML UNIT DOSE CUP PEG ONE (17:15)
--- NOTE | 2016-11-29 17:24 | PN ---
Progress Note, Physician Chief Complaint: RETURNED FROM OR FOR WOUND REPAIR ABDOMEN WOUND CLOSURE. TOLERATED WELL, BEDSIDE - Current Medication List Current Medications: Active Medications Acetaminophen (Tylenol Oral Solution -) 650 mg PO Q6H PRN PRN Reason: FEVER OR PAIN Last Admin: 11/29/16 17:07 Dose: 650 mg Albuterol Sulfate (Ventolin 0.083% Nebulizer Soln -) 1 amp NEB Q1H PRN PRN Reason: SHORT OF BREATH/WHEEZING Albuterol/Ipratropium (Duoneb -) 1 amp NEB TIDR [facility] Amino Acids (Prosource No Carb Liquid Pkt) 30 ml PO BID@0800,1730 [facility] Last Admin: 11/29/16 17:08 Dose: 30 ml Ascorbic Acid (Vitamin C -) 500 mg PO DAILY [facility] Bacitracin (Bacitracin -) 1 applic TP DAILY [facility] Calcitriol (Rocaltrol Liquid -) 0.5 mcg NGT DAILY [facility] Epoetin Cirilo (Procrit -) 10,000 unit IVPUSH ONCE ONE Stop: 11/30/16 17:07 Levetiracetam (Keppra Oral Solution -) 500 mg PEG BID [facility] Ondansetron HCl (Zofran Odt -) 4 mg SL Q8H PRN PRN Reason: NAUSEA AND/OR VOMITING Oxycodone HCl (Roxicodone -) 5 mg PEG Q6H PRN PRN Reason: PAIN Last Admin: 11/29/16 17:08 Dose: 5 mg Pantoprazole Sodium (Protonix Packets For Oral Suspension -) 40 mg NGT DAILY [facility] Zinc Sulfate (Orazinc -) 220 mg PEG DAILY [facility] - Objective Vital Signs: Vital Signs Temperature 98 F 11/29/16 16:20 Pulse Rate 109 H 11/29/16 16:20 Respiratory Rate 15 11/29/16 16:20 Blood Pressure 100/49 11/29/16 16:20 O2 Sat by Pulse Oximetry (%) 100 11/29/16 16:20 Constitutional: Yes: Mild Distress Eyes: Yes: WNL HENT: Yes: WNL Neck: Yes: WNL Cardiovascular: Yes: WNL Respiratory: Yes: Mechanically Ventilated Gastrointestinal: Yes: Tenderness, Other Genitourinary: Yes: Incontinence Musculoskeletal: Yes: Muscle Weakness Edema: Yes Peripheral Pulses WNL: Yes Integumentary: Yes: Pressure Ulcer, Rash, Venous Stasis Changes Wound/Incision: Yes: Dressing Dry and Intact, Unapproximated Neurological: Yes: Pre-Existing Deficit ...Motor Strength: LLE, RLE Psychiatric: Yes: Other Labs: CBC, BMP 11/29/16 06:40 11/29/16 06:40 INR, PTT INR 1.95 (0.82-1.09) H D 11/23/16 01:00 Fibrinogen 279.0 mg/dL (238-498) 11/14/16 06:15 Problem List - Problems (1) Cardiopulmonary arrest Code(s): I46.9 - CARDIAC ARREST, CAUSE UNSPECIFIED (2) DVT (deep venous thrombosis) Code(s): I82.409 - ACUTE EMBOLISM AND THOMBOS UNSP DEEP VN UNSP LOWER EXTREMITY (3) ESRD (end stage renal disease) on dialysis Code(s): N18.6 - END STAGE RENAL DISEASE Z99.2 - DEPENDENCE ON RENAL DIALYSIS (4) HCV (hepatitis C virus) Code(s): B19.20 - UNSPECIFIED VIRAL HEPATITIS C WITHOUT HEPATIC COMA (5) Metabolic encephalopathy Code(s): G93.41 - METABOLIC ENCEPHALOPATHY (6) Pneumonia Code(s): J18.9 - PNEUMONIA, UNSPECIFIED ORGANISM (7) Respiratory failure Code(s): J96.90 - RESPIRATORY FAILURE, UNSP, UNSP W HYPOXIA OR HYPERCAPNIA (8) Dysphagia Code(s): R13.10 - DYSPHAGIA, UNSPECIFIED Assessment/Plan TOLERATED WOUND EXPLORATION AND CLOSURE KCL REPLETED IV WEAN OFF VENT TOLERATED JTUBE INCREASE FEEDS TOLERATED DC PLANNING TO LTAC
[2016-11-29] MEDS ORDERED: PT OWN MED DRAWER 7, Y5N ONE (21:32)
[2016-11-29] MEDS ORDERED: POTASSIUM CHLORIDE 40 MEQ/30 ML UNIT DOSE CUP ONE (21:33)
[2016-11-29] MEDS: levETIRAcetam 500 MG/5 ML ORAL SOLUTION (UNIT-DOSE CUPS) PEG SCH (21:35)
[2016-11-30] MEDS: ACETAMINOPHEN 650 MG/20.3 ML ORAL SOLUTION (CUPS) PO PRN ×2 (02:54→22:35)
[2016-11-30] MEDS: oxyCODONE HCL 5 MG TABLET PEG PRN (02:55)
--- NOTE | 2016-11-30 06:22 | PN ---
Progress Note, Physician History of Present Illness: s/p wound exploration and closure for a small partial dehiscence - Current Medication List Current Medications: Active Medications Acetaminophen (Tylenol Oral Solution -) 650 mg PO Q6H PRN PRN Reason: FEVER OR PAIN Last Admin: 11/30/16 02:54 Dose: 650 mg Albuterol Sulfate (Ventolin 0.083% Nebulizer Soln -) 1 amp NEB Q1H PRN PRN Reason: SHORT OF BREATH/WHEEZING Albuterol/Ipratropium (Duoneb -) 1 amp NEB TIDR [facility] Last Admin: 11/29/16 22:20 Dose: 1 amp Amino Acids (Prosource No Carb Liquid Pkt) 30 ml PO BID@0800,1730 [facility] Last Admin: 11/29/16 17:08 Dose: 30 ml Ascorbic Acid (Vitamin C -) 500 mg PO DAILY [facility] Bacitracin (Bacitracin -) 1 applic TP DAILY [facility] Calcitriol (Rocaltrol Liquid -) 0.5 mcg NGT DAILY [facility] Epoetin Cirilo (Procrit -) 10,000 unit IVPUSH ONCE ONE Stop: 11/30/16 17:07 Levetiracetam (Keppra Oral Solution -) 500 mg PEG BID [facility] Last Admin: 11/29/16 21:35 Dose: 500 mg Ondansetron HCl (Zofran Odt -) 4 mg SL Q8H PRN PRN Reason: NAUSEA AND/OR VOMITING Oxycodone HCl (Roxicodone -) 5 mg PEG Q6H PRN PRN Reason: PAIN Last Admin: 11/30/16 02:55 Dose: 5 mg Pantoprazole Sodium (Protonix Packets For Oral Suspension -) 40 mg NGT DAILY [facility] Zinc Sulfate (Orazinc -) 220 mg PEG DAILY [facility] - Objective Vital Signs: Vital Signs Temperature 97.9 F 11/29/16 18:00 Pulse Rate 111 H 11/29/16 18:00 Respiratory Rate 24 11/30/16 02:20 Blood Pressure 121/63 11/29/16 18:00 O2 Sat by Pulse Oximetry (%) 100 11/29/16 21:00 Labs: CBC, BMP 11/29/16 06:40 11/29/16 06:40 INR, PTT INR 1.95 (0.82-1.09) H D 11/23/16 01:00 Fibrinogen 279.0 mg/dL (238-498) 11/14/16 06:15 Assessment/Plan s/p feeding Jejunostomy complicted by partial dehiscence Not entirely unexpected given presence of Ascited, renal failure, malnutrition Currently wound is well managed with vac dressing. Control of ascitic leak is challenging but will hpefully improve with ostomy applied and improved nutrition
[2016-11-30] MEDS: ALBUTEROL SO4 2.5/IPRATROPIUM 0.5 INH SOL 3 ML VIAL.NEB. NEB SCH ×3 (06:40→22:25)
[2016-11-30] MEDS ORDERED: EPOETIN ALFA 10,000 UNIT/1 ML VIAL IVPUSH ONE (11:00)
[2016-11-30] MEDS: AMINO ACIDS/PROTEIN HYDROLYS 30 ML LIQUID.PKT PO SCH ×2 (12:08→20:32)
[2016-11-30] MEDS ORDERED: PT OWN MED DRAWER 7, Y5N ONE (12:12)
[2016-11-30] MEDS: levETIRAcetam 500 MG/5 ML ORAL SOLUTION (UNIT-DOSE CUPS) PEG SCH ×2 (12:15→22:35)
[2016-11-30] MEDS: BACITRACIN 30 GM TUBE TOPICAL OINTMENT TP SCH (12:15)
--- NOTE | 2016-11-30 12:35 | PN ---
Progress Note (short form) - Note Progress Note: Awake and responsive. Surgical follow up noted. AC Mode of vent 35% FiO2. Intake & Output 11/27/16 11/28/16 11/29/16 11/30/16 23:59 23:59 23:59 23:59 Intake Total 1670 1184 1260 550 Output Total 300 20 Balance 1370 1184 1240 550 Weight 117 lb 11.2 oz 117 lb 12.8 oz 120 lb 2 oz Last Vital Signs Temp Pulse Resp BP Pulse Ox 98.4 F 51 L 18 105/60 100 11/30/16 06:00 11/30/16 10:40 11/30/16 10:40 11/30/16 10:40 11/29/16 21:00 Active Medications Acetaminophen (Tylenol Oral Solution -) 650 mg PO Q6H PRN PRN Reason: FEVER OR PAIN Last Admin: 11/30/16 02:54 Dose: 650 mg Albuterol Sulfate (Ventolin 0.083% Nebulizer Soln -) 1 amp NEB Q1H PRN PRN Reason: SHORT OF BREATH/WHEEZING Albuterol/Ipratropium (Duoneb -) 1 amp NEB TIDR [facility] Last Admin: 11/30/16 06:40 Dose: 1 amp Amino Acids (Prosource No Carb Liquid Pkt) 30 ml PO BID@0800,1730 [facility] Last Admin: 11/30/16 12:08 Dose: Not Given Ascorbic Acid (Vitamin C -) 500 mg PO DAILY [facility] Bacitracin (Bacitracin -) 1 applic TP DAILY [facility] Last Admin: 11/30/16 12:15 Dose: 1 applic Calcitriol (Rocaltrol Liquid -) 0.5 mcg NGT DAILY [facility] Levetiracetam (Keppra Oral Solution -) 500 mg PEG BID [facility] Last Admin: 11/30/16 12:15 Dose: 500 mg Ondansetron HCl (Zofran Odt -) 4 mg SL Q8H PRN PRN Reason: NAUSEA AND/OR VOMITING Oxycodone HCl (Roxicodone -) 5 mg PEG Q6H PRN PRN Reason: PAIN Last Admin: 11/30/16 02:55 Dose: 5 mg Pantoprazole Sodium (Protonix Packets For Oral Suspension -) 40 mg NGT DAILY [facility] Zinc Sulfate (Orazinc -) 220 mg PEG DAILY [facility] Constitutional: Yes: Awake on AC Mode of vent Eyes: Yes: WNL HENT: Yes: WNL Neck: Yes: Supple (trach) Cardiovascular: Yes: Regular Rate and Rhythm, S1, S2 Respiratory: Yes: Rhonchi (few rhonchi) Gastrointestinal: Yes: (+) BS, (+) ostomy, intact J-tube Extremities: Yes: WNL Edema: Yes Problem List - Problems (1) Anemia Code(s): D64.9 - ANEMIA, UNSPECIFIED Qualifiers: Other causes of anemia: chronic disease, kidney (2) Cardiopulmonary arrest Code(s): I46.9 - CARDIAC ARREST, CAUSE UNSPECIFIED (3) DVT (deep venous thrombosis) Code(s): I82.409 - ACUTE EMBOLISM AND THOMBOS UNSP DEEP VN UNSP LOWER EXTREMITY (4) Dysphagia Code(s): R13.10 - DYSPHAGIA, UNSPECIFIED (5) ESRD (end stage renal disease) on dialysis Code(s): N18.6 - END STAGE RENAL DISEASE Z99.2 - DEPENDENCE ON RENAL DIALYSIS (6) Pneumonia Code(s): J18.9 - PNEUMONIA, UNSPECIFIED ORGANISM (7) Respiratory failure Code(s): J96.90 - RESPIRATORY FAILURE, UNSP, UNSP W HYPOXIA OR HYPERCAPNIA (8) Shock Code(s): R57.9 - SHOCK, UNSPECIFIED Assessment/Plan S/P Trach due to failure to wean s/p PEA Cardiopulmonary Arrest s/p Hypothermia Protocol Pneumonia S/P Septic Shock Pulmonary HTN Lactic Acidosis resolved ESRD on HD RLE distal DVT GI Bleed Thrombocytopenia Fever S/P Ex-lap due to SBO S/P J-tube placement - Pain control - HD per renal - AEDs - spontaneous breathing trials once clinically improved - DVT/GI prophylaxis - monitor lytes,h+h - Normal transfusion thresholds Dr Gonzalez
[2016-11-30] MEDS: PANTOPRAZOLE SOD 40 MG SUSPENSION PACKET NGT SCH ×2 (14:26→15:05)
[2016-11-30] MEDS: ZINC SULFATE 220 MG CAPSULE (FP) PEG SCH ×2 (14:26→15:05)
[2016-11-30] MEDS: CALCITRIOL 1 MCG/ML BOT NGT SCH ×2 (14:26→15:07)
[2016-11-30] MEDS: ASCORBIC ACID 500 MG TABLET (FP) PO SCH ×2 (14:29→15:07)
--- NOTE | 2016-11-30 15:08 | PN ---
Progress Note (short form) - Note Progress Note: At pts bedside and she vomited approximately 500ml bile. Her trach and mouth were suctioned and an NGT was inserted and taped at 60cm. Ngt was placed to LWS and will obtain an xray to evaluate for obstruction. Will continue to hold J tube feeds. She continues to have diarrhea/stool via rectal tube.
--- NOTE | 2016-11-30 16:14 | PN ---
Progress Note, Physician History of Present Illness: Pt seen and examined at bedside. She tolerated HD. She had an episode of vomiting and the feeds were held. - Current Medication List Current Medications: Active Medications Acetaminophen (Tylenol Oral Solution -) 650 mg PO Q6H PRN PRN Reason: FEVER OR PAIN Last Admin: 11/30/16 02:54 Dose: 650 mg Albuterol Sulfate (Ventolin 0.083% Nebulizer Soln -) 1 amp NEB Q1H PRN PRN Reason: SHORT OF BREATH/WHEEZING Albuterol/Ipratropium (Duoneb -) 1 amp NEB TIDR [facility] Last Admin: 11/30/16 14:55 Dose: 1 amp Amino Acids (Prosource No Carb Liquid Pkt) 30 ml PO BID@0800,1730 [facility] Last Admin: 11/30/16 12:08 Dose: Not Given Ascorbic Acid (Vitamin C -) 500 mg PO DAILY [facility] Last Admin: 11/30/16 15:07 Dose: Not Given Bacitracin (Bacitracin -) 1 applic TP DAILY [facility] Last Admin: 11/30/16 12:15 Dose: 1 applic Calcitriol (Rocaltrol Liquid -) 0.5 mcg NGT DAILY [facility] Last Admin: 11/30/16 15:07 Dose: Not Given Levetiracetam (Keppra Oral Solution -) 500 mg PEG BID [facility] Last Admin: 11/30/16 12:15 Dose: 500 mg Ondansetron HCl (Zofran Odt -) 4 mg SL Q8H PRN PRN Reason: NAUSEA AND/OR VOMITING Oxycodone HCl (Roxicodone -) 5 mg PEG Q6H PRN PRN Reason: PAIN Last Admin: 11/30/16 02:55 Dose: 5 mg Pantoprazole Sodium (Protonix Packets For Oral Suspension -) 40 mg NGT DAILY [facility] Last Admin: 11/30/16 15:05 Dose: Not Given Zinc Sulfate (Orazinc -) 220 mg PEG DAILY [facility] Last Admin: 11/30/16 15:05 Dose: Not Given - Objective Vital Signs: Vital Signs Temperature 98.7 F 11/30/16 12:00 Pulse Rate 106 H 11/30/16 15:00 Respiratory Rate 19 11/30/16 15:00 Blood Pressure 98/50 11/30/16 15:00 O2 Sat by Pulse Oximetry (%) 100 11/29/16 21:00 Constitutional: Yes: Calm Eyes: Yes: Conjunctiva Clear Neck: Yes: Other (trache) Cardiovascular: Yes: S1, S2 Respiratory: Yes: Mechanically Ventilated Gastrointestinal: Yes: Soft, Other (peg) Genitourinary: Yes: Incontinence Musculoskeletal: Yes: Muscle Weakness Edema: Yes Neurological: Yes: Other (awake) Labs: CBC, BMP 11/29/16 06:40 11/29/16 06:40 INR, PTT INR 1.95 (0.82-1.09) H D 11/23/16 01:00 Fibrinogen 279.0 mg/dL (238-498) 11/14/16 06:15 Problem List - Problems (1) Cardiopulmonary arrest Code(s): I46.9 - CARDIAC ARREST, CAUSE UNSPECIFIED (2) DVT (deep venous thrombosis) Code(s): I82.409 - ACUTE EMBOLISM AND THOMBOS UNSP DEEP VN UNSP LOWER EXTREMITY (3) ESRD (end stage renal disease) on dialysis Code(s): N18.6 - END STAGE RENAL DISEASE Z99.2 - DEPENDENCE ON RENAL DIALYSIS (4) HCV (hepatitis C virus) Code(s): B19.20 - UNSPECIFIED VIRAL HEPATITIS C WITHOUT HEPATIC COMA (5) Respiratory failure Code(s): J96.90 - RESPIRATORY FAILURE, UNSP, UNSP W HYPOXIA OR HYPERCAPNIA Assessment/Plan Current Medications Generic Name Dose Route Start Last Admin Trade Name Freq PRN Reason Stop Dose Admin Acetaminophen 650 mg 11/29/16 15:26 11/30/16 02:54 Tylenol Oral Solution - PO 650 mg Q6H PRN Administration FEVER OR PAIN Albuterol Sulfate 1 amp 11/29/16 15:26 Ventolin 0.083% Nebulizer Soln - NEB Q1H PRN SHORT OF BREATH/WHEEZING Albuterol/Ipratropium 1 amp 11/29/16 22:00 11/30/16 14:55 Duoneb - NEB 1 amp TIDR [facility] Administration Amino Acids 30 ml 11/29/16 17:30 11/30/16 12:08 Prosource No Carb Liquid Pkt PO Not Given BID@0800,1730 [facility] Ascorbic Acid 500 mg 11/30/16 10:00 11/30/16 15:07 Vitamin C - PO Not Given DAILY [facility] Bacitracin 1 applic 11/30/16 10:00 11/30/16 12:15 Bacitracin - TP 1 applic DAILY [facility] Administration Calcitriol 0.5 mcg 11/30/16 10:00 11/30/16 15:07 Rocaltrol Liquid - NGT Not Given DAILY [facility] Levetiracetam 500 mg 11/29/16 22:00 11/30/16 12:15 Keppra Oral Solution - PEG 500 mg BID [facility] Administration Ondansetron HCl 4 mg 11/29/16 15:26 Zofran Odt - SL Q8H PRN NAUSEA AND/OR VOMITING Oxycodone HCl 5 mg 11/29/16 15:26 11/30/16 02:55 Roxicodone - PEG 5 mg Q6H PRN Administration PAIN Pantoprazole Sodium 40 mg 11/30/16 10:00 11/30/16 15:05 Protonix Packets For Oral Suspension - NGT Not Given DAILY [facility] Zinc Sulfate 220 mg 11/30/16 10:00 11/30/16 15:05 Orazinc - PEG Not Given DAILY [facility] Impression 1. ESRD 2. s/p cardiopulmonary arrest 3. acute respiratory failure 4. Pneumonia 5. DVT of right leg 6. S/P Seizure following the arrest 7. Right renal complex cyst > 5cms in diameter 8. Anemia 9. Thrombocytopenia 10. H/O HCV 11. GI bleed 12. s/p exploratory laparotomy, lysis of adhesions, small bowel resection, and feeding jejunostomy Plan - pt tolerated HD - feeds held - will restart clinimix - wound care - monitor labs and hg - will cont epogen for anemia - surgery following pt - vent support, weaning as tolerated Dr Espino
[2016-11-30] MEDS ORDERED: AMINO ACIDS 4.25%/D5W 1,000 ML IV SCH (16:15)
--- NOTE | 2016-11-30 20:19 | PN ---
Progress Note, Physician Chief Complaint: DISCUSSED WITH SURGERY NEIDA STODDARD AND NURSE TWIN THEY WITNESSED BILIOUS VOMITING, NGT PLACED EVENTS ALL REVIEWED RESTRAINTS NEEDED FOR PATIENT SAFETY TO PREVENT TRACHEOSTOMY AND NGT REMOVAL FROM PATIENT - Current Medication List Current Medications: Active Medications Acetaminophen (Tylenol Oral Solution -) 650 mg PO Q6H PRN PRN Reason: FEVER OR PAIN Last Admin: 11/30/16 02:54 Dose: 650 mg Albuterol Sulfate (Ventolin 0.083% Nebulizer Soln -) 1 amp NEB Q1H PRN PRN Reason: SHORT OF BREATH/WHEEZING Albuterol/Ipratropium (Duoneb -) 1 amp NEB TIDR [facility] Last Admin: 11/30/16 14:55 Dose: 1 amp Amino Acids (Prosource No Carb Liquid Pkt) 30 ml PO BID@0800,1730 [facility] Last Admin: 11/30/16 12:08 Dose: Not Given Ascorbic Acid (Vitamin C -) 500 mg PO DAILY [facility] Last Admin: 11/30/16 15:07 Dose: Not Given Bacitracin (Bacitracin -) 1 applic TP DAILY [facility] Last Admin: 11/30/16 12:15 Dose: 1 applic Calcitriol (Rocaltrol Liquid -) 0.5 mcg NGT DAILY [facility] Last Admin: 11/30/16 15:07 Dose: Not Given Amino Acids (Clinimix -) 1,000 mls @ 30 mls/hr IV Q24H [facility] Last Admin: 11/30/16 17:54 Dose: 30 mls/hr Levetiracetam (Keppra Oral Solution -) 500 mg PEG BID [facility] Last Admin: 11/30/16 12:15 Dose: 500 mg Ondansetron HCl (Zofran Odt -) 4 mg SL Q8H PRN PRN Reason: NAUSEA AND/OR VOMITING Oxycodone HCl (Roxicodone -) 5 mg PEG Q6H PRN PRN Reason: PAIN Last Admin: 11/30/16 02:55 Dose: 5 mg Pantoprazole Sodium (Protonix Packets For Oral Suspension -) 40 mg NGT DAILY [facility] Last Admin: 11/30/16 15:05 Dose: Not Given Zinc Sulfate (Orazinc -) 220 mg PEG DAILY [facility] Last Admin: 11/30/16 15:05 Dose: Not Given - Objective Vital Signs: Vital Signs Temperature 98.9 F 11/30/16 18:27 Pulse Rate 111 H 11/30/16 18:27 Respiratory Rate 15 11/30/16 18:27 Blood Pressure 90/47 11/30/16 18:27 O2 Sat by Pulse Oximetry (%) 98 11/30/16 09:00 Constitutional: Yes: Mild Distress Eyes: Yes: WNL HENT: Yes: WNL Neck: Yes: WNL Cardiovascular: Yes: WNL Respiratory: Yes: Mechanically Ventilated Gastrointestinal: Yes: Distention ...Rectal Exam: Yes: Other Genitourinary: Yes: Incontinence Musculoskeletal: Yes: Muscle Pain, Muscle Weakness Extremities: Yes: Deformity, Other Edema: Yes Edema: LLE: Trace, RLE: Trace Peripheral Pulses WNL: Yes Integumentary: Yes: Pressure Ulcer, Other Wound/Incision: Yes: Dressing Dry and Intact, Other Neurological: Yes: Pre-Existing Deficit ...Motor Strength: LLE, RLE Psychiatric: Yes: Agitated, Other Labs: CBC, BMP 11/29/16 06:40 11/29/16 06:40 INR, PTT INR 1.95 (0.82-1.09) H D 11/23/16 01:00 Fibrinogen 279.0 mg/dL (238-498) 11/14/16 06:15 Problem List - Problems (1) Cardiopulmonary arrest Code(s): I46.9 - CARDIAC ARREST, CAUSE UNSPECIFIED (2) DVT (deep venous thrombosis) Code(s): I82.409 - ACUTE EMBOLISM AND THOMBOS UNSP DEEP VN UNSP LOWER EXTREMITY (3) ESRD (end stage renal disease) on dialysis Code(s): N18.6 - END STAGE RENAL DISEASE Z99.2 - DEPENDENCE ON RENAL DIALYSIS (4) HCV (hepatitis C virus) Code(s): B19.20 - UNSPECIFIED VIRAL HEPATITIS C WITHOUT HEPATIC COMA (5) Metabolic encephalopathy Code(s): G93.41 - METABOLIC ENCEPHALOPATHY (6) Pneumonia Code(s): J18.9 - PNEUMONIA, UNSPECIFIED ORGANISM (7) Respiratory failure Code(s): J96.90 - RESPIRATORY FAILURE, UNSP, UNSP W HYPOXIA OR HYPERCAPNIA (8) Dysphagia Code(s): R13.10 - DYSPHAGIA, UNSPECIFIED Assessment/Plan NGT PLACED, TO DRAIN GREEN BILIOUS VOMIT STOP FEEDINGS VIA J-TUBE SURGERY FOLLOW UP XRAYS R/U ILEUS VS OBSTRUCTION TRACHEOSTOMY TO WEAN TOLERATED OFF VENT OVERALL POOR PROGNOSIS FOR SIGNIFICANT QUALITY OF LIFE DISCUSSED WITH . LTAC WHEN READY.
[2016-11-30 20:37] LABS: BASOPHIL 0.3 % (0-2.0); EOSINOPHIL 0.4 % (0-4.5); MCH 32.6 pg (25.7-33.7); MEAN CELL VOLUME 101.8 fl (80-96); MEAN PLT VOLUME 11.2 fl (7.5-11.1); NEUTROPHILS 86.5 % (42.8-82.8); RDW 22.8 % (11.6-15.6)
[2016-11-30 20:40] LABS: PLATELET COUNT 36 K/MM3 (134-434)
[2016-11-30 22:44] LABS: PLATELET COMMENT2 NO CLUMPING NOTED; PLATELET COMMENT3 NO CLOTTING DETECTED; PLATELET ESTIMATE MARKEDLY DECREASED (NORMAL)
[2016-12-01] MEDS: ALBUTEROL SO4 2.5/IPRATROPIUM 0.5 INH SOL 3 ML VIAL.NEB. NEB SCH ×3 (07:08→23:05)
[2016-12-01 07:49] LABS: BASOPHIL 0.4 % (0-2.0); EOSINOPHIL 0.9 % (0-4.5); MCH 33.4 pg (25.7-33.7); MCHC 32.6 g/dl (32.0-36.0); MEAN CELL VOLUME 102.6 fl (80-96); MEAN PLT VOLUME 11.3 fl (7.5-11.1); NEUTROPHILS 83.9 % (42.8-82.8); RDW 22.5 % (11.6-15.6); WHITE BLOOD COUNT 14.8 K/mm3 (4.0-10.0)
[2016-12-01 07:54] LABS: PLATELET COUNT 25 K/MM3 (134-434)
[2016-12-01 08:33] LABS: CALCIUM 7.9 mg/dL (8.5-10.1); CREATININE 2.1 mg/dL (0.55-1.02); MAGNESIUM 1.5 mg/dL (1.8-2.4); PHOSPHOROUS 1.3 mg/dL (2.5-4.9)
--- NOTE | 2016-12-01 10:40 | PN ---
Progress Note, Physician History of Present Illness: s/p return to [place] for partial dehiscence and wound debridement yesterday patient had episode of vomiting, Xray negative for SBO, continues to have bowel activity. NGT with minimal output since insertion - Current Medication List Current Medications: Active Medications Acetaminophen (Tylenol Oral Solution -) 650 mg PO Q6H PRN PRN Reason: FEVER OR PAIN Last Admin: 11/30/16 22:35 Dose: 650 mg Albuterol Sulfate (Ventolin 0.083% Nebulizer Soln -) 1 amp NEB Q1H PRN PRN Reason: SHORT OF BREATH/WHEEZING Albuterol/Ipratropium (Duoneb -) 1 amp NEB TIDR [facility] Last Admin: 12/01/16 07:08 Dose: 1 amp Amino Acids (Prosource No Carb Liquid Pkt) 30 ml PO BID@0800,1730 [facility] Last Admin: 11/30/16 20:32 Dose: Not Given Ascorbic Acid (Vitamin C -) 500 mg PO DAILY [facility] Last Admin: 11/30/16 15:07 Dose: Not Given Bacitracin (Bacitracin -) 1 applic TP DAILY [facility] Last Admin: 11/30/16 12:15 Dose: 1 applic Calcitriol (Rocaltrol Liquid -) 0.5 mcg NGT DAILY [facility] Last Admin: 11/30/16 15:07 Dose: Not Given Amino Acids (Clinimix -) 1,000 mls @ 30 mls/hr IV Q24H [facility] Last Admin: 11/30/16 17:54 Dose: 30 mls/hr Levetiracetam (Keppra Oral Solution -) 500 mg PEG BID [facility] Last Admin: 11/30/16 22:35 Dose: 500 mg Ondansetron HCl (Zofran Odt -) 4 mg SL Q8H PRN PRN Reason: NAUSEA AND/OR VOMITING Oxycodone HCl (Roxicodone -) 5 mg PEG Q6H PRN PRN Reason: PAIN Last Admin: 11/30/16 02:55 Dose: 5 mg Pantoprazole Sodium (Protonix Packets For Oral Suspension -) 40 mg NGT DAILY [facility] Last Admin: 11/30/16 15:05 Dose: Not Given Zinc Sulfate (Orazinc -) 220 mg PEG DAILY [facility] Last Admin: 11/30/16 15:05 Dose: Not Given - Objective Vital Signs: Vital Signs Temperature 98 F 12/01/16 06:00 Pulse Rate 105 H 12/01/16 10:12 Respiratory Rate 20 12/01/16 09:38 Blood Pressure 101/43 12/01/16 06:00 O2 Sat by Pulse Oximetry (%) 98 12/01/16 10:12 Labs: CBC, BMP 12/01/16 07:00 12/01/16 07:00 INR, PTT INR 1.95 (0.82-1.09) H D 11/23/16 01:00 Fibrinogen 279.0 mg/dL (238-498) 11/14/16 06:15 - ....Imaging X-ray: Report Reviewed, Image Reviewed Assessment/Plan stable will resume tube feeding repeat xray of Abdomen correct electrolyte abnormalities will clamp NG and check residuals in 6 hrs
[2016-12-01] MEDS ORDERED: PT OWN MED DRAWER 7, Y5N ONE ×2 (10:47→22:46)
[2016-12-01] MEDS: PANTOPRAZOLE SOD 40 MG SUSPENSION PACKET NGT SCH (10:51)
[2016-12-01] MEDS: AMINO ACIDS/PROTEIN HYDROLYS 30 ML LIQUID.PKT PO SCH ×2 (10:51→17:04)
[2016-12-01] MEDS: ZINC SULFATE 220 MG CAPSULE (FP) PEG SCH (10:52)
[2016-12-01] MEDS: ASCORBIC ACID 500 MG TABLET (FP) PO SCH (10:52)
[2016-12-01] MEDS: levETIRAcetam 500 MG/5 ML ORAL SOLUTION (UNIT-DOSE CUPS) PEG SCH ×2 (10:52→23:04)
[2016-12-01] MEDS: BACITRACIN 30 GM TUBE TOPICAL OINTMENT TP SCH (10:52)
[2016-12-01] MEDS: CALCITRIOL 1 MCG/ML BOT NGT SCH (10:52)
[2016-12-01 11:24] LABS: PLATELET ESTIMATE DECREASED (NORMAL)
[2016-12-01 11:25] LABS: ANISOCYTOSIS 2+; HYPOCHROMIA 1+; POLYCHROMASIA 1+
--- NOTE | 2016-12-01 15:03 | PN ---
Progress Note, Physician Chief Complaint: ASLEEP, EVENTS REVIEWED FEEDS ARE ON HOLD, WILL RESTART WHEN SURGERY RETURNS THIS AFTERNOON - Current Medication List Current Medications: Active Medications Acetaminophen (Tylenol Oral Solution -) 650 mg PO Q6H PRN PRN Reason: FEVER OR PAIN Last Admin: 11/30/16 22:35 Dose: 650 mg Albuterol Sulfate (Ventolin 0.083% Nebulizer Soln -) 1 amp NEB Q1H PRN PRN Reason: SHORT OF BREATH/WHEEZING Albuterol/Ipratropium (Duoneb -) 1 amp NEB TIDR [facility] Last Admin: 12/01/16 14:10 Dose: 1 amp Amino Acids (Prosource No Carb Liquid Pkt) 30 ml PO BID@0800,1730 [facility] Last Admin: 12/01/16 10:51 Dose: 30 ml Ascorbic Acid (Vitamin C -) 500 mg PO DAILY [facility] Last Admin: 12/01/16 10:52 Dose: 500 mg Bacitracin (Bacitracin -) 1 applic TP DAILY [facility] Last Admin: 12/01/16 10:52 Dose: 1 applic Calcitriol (Rocaltrol Liquid -) 0.5 mcg NGT DAILY [facility] Last Admin: 12/01/16 10:52 Dose: 0.5 mcg Amino Acids (Clinimix -) 1,000 mls @ 30 mls/hr IV Q24H [facility] Last Admin: 11/30/16 17:54 Dose: 30 mls/hr Levetiracetam (Keppra Oral Solution -) 500 mg PEG BID [facility] Last Admin: 12/01/16 10:52 Dose: 500 mg Ondansetron HCl (Zofran Odt -) 4 mg SL Q8H PRN PRN Reason: NAUSEA AND/OR VOMITING Oxycodone HCl (Roxicodone -) 5 mg PEG Q6H PRN PRN Reason: PAIN Last Admin: 11/30/16 02:55 Dose: 5 mg Pantoprazole Sodium (Protonix Packets For Oral Suspension -) 40 mg NGT DAILY [facility] Last Admin: 12/01/16 10:51 Dose: 40 mg Zinc Sulfate (Orazinc -) 220 mg PEG DAILY [facility] Last Admin: 12/01/16 10:52 Dose: 220 mg - Objective Vital Signs: Vital Signs Temperature 98.2 F 12/01/16 10:00 Pulse Rate 105 H 12/01/16 10:12 Respiratory Rate 22 12/01/16 13:49 Blood Pressure 102/46 12/01/16 10:00 O2 Sat by Pulse Oximetry (%) 98 12/01/16 10:12 Constitutional: Yes: Moderate Distress Eyes: Yes: WNL HENT: Yes: WNL Neck: Yes: WNL Cardiovascular: Yes: Other Respiratory: Yes: Mechanically Ventilated Gastrointestinal: Yes: WNL Genitourinary: Yes: Other Musculoskeletal: Yes: Muscle Weakness Extremities: Yes: Deformity Edema: Yes Edema: LLE: Trace, RLE: Trace Peripheral Pulses WNL: Yes Integumentary: Yes: Pressure Ulcer, Venous Stasis Changes Wound/Incision: Yes: Dressing Dry and Intact, Other Neurological: Yes: Pre-Existing Deficit ...Motor Strength: LUE, LLE, RLE Psychiatric: Yes: Other Labs: CBC, BMP 12/01/16 07:00 12/01/16 07:00 INR, PTT INR 1.95 (0.82-1.09) H D 11/23/16 01:00 Fibrinogen 279.0 mg/dL (238-498) 11/14/16 06:15 Problem List - Problems (1) Cardiopulmonary arrest Code(s): I46.9 - CARDIAC ARREST, CAUSE UNSPECIFIED (2) DVT (deep venous thrombosis) Code(s): I82.409 - ACUTE EMBOLISM AND THOMBOS UNSP DEEP VN UNSP LOWER EXTREMITY (3) ESRD (end stage renal disease) on dialysis Code(s): N18.6 - END STAGE RENAL DISEASE Z99.2 - DEPENDENCE ON RENAL DIALYSIS (4) HCV (hepatitis C virus) Code(s): B19.20 - UNSPECIFIED VIRAL HEPATITIS C WITHOUT HEPATIC COMA (5) Metabolic encephalopathy Code(s): G93.41 - METABOLIC ENCEPHALOPATHY (6) Pneumonia Code(s): J18.9 - PNEUMONIA, UNSPECIFIED ORGANISM (7) Respiratory failure Code(s): J96.90 - RESPIRATORY FAILURE, UNSP, UNSP W HYPOXIA OR HYPERCAPNIA (8) Dysphagia Code(s): R13.10 - DYSPHAGIA, UNSPECIFIED Assessment/Plan NGT PLACED, TO DRAIN GREEN BILIOUS VOMIT STOP FEEDINGS VIA J-TUBE SURGERY FOLLOW UP XRAYS R/U ILEUS VS OBSTRUCTION TRACHEOSTOMY TO WEAN TOLERATED OFF VENT OVERALL POOR PROGNOSIS FOR SIGNIFICANT QUALITY OF LIFE DISCUSSED WITH . LT[facility] WHEN READY.
--- NOTE | 2016-12-01 15:08 | PN ---
Progress Note, Physician History of Present Illness: Pt seen and examined at bedside. She is now restarted on feeds. - Current Medication List Current Medications: Active Medications Acetaminophen (Tylenol Oral Solution -) 650 mg PO Q6H PRN PRN Reason: FEVER OR PAIN Last Admin: 11/30/16 22:35 Dose: 650 mg Albuterol Sulfate (Ventolin 0.083% Nebulizer Soln -) 1 amp NEB Q1H PRN PRN Reason: SHORT OF BREATH/WHEEZING Albuterol/Ipratropium (Duoneb -) 1 amp NEB TIDR [facility] Last Admin: 12/01/16 14:10 Dose: 1 amp Amino Acids (Prosource No Carb Liquid Pkt) 30 ml PO BID@0800,1730 [facility] Last Admin: 12/01/16 10:51 Dose: 30 ml Ascorbic Acid (Vitamin C -) 500 mg PO DAILY [facility] Last Admin: 12/01/16 10:52 Dose: 500 mg Bacitracin (Bacitracin -) 1 applic TP DAILY [facility] Last Admin: 12/01/16 10:52 Dose: 1 applic Calcitriol (Rocaltrol Liquid -) 0.5 mcg NGT DAILY [facility] Last Admin: 12/01/16 10:52 Dose: 0.5 mcg Amino Acids (Clinimix -) 1,000 mls @ 30 mls/hr IV Q24H [facility] Last Admin: 11/30/16 17:54 Dose: 30 mls/hr Potassium Chloride (Potassium Chloride 10 Meq Premix Ivpb -) 100 mls @ 100 mls/ hr IVPB Q60M [facility] Stop: 12/01/16 16:14 Levetiracetam (Keppra Oral Solution -) 500 mg PEG BID [facility] Last Admin: 12/01/16 10:52 Dose: 500 mg Ondansetron HCl (Zofran Odt -) 4 mg SL Q8H PRN PRN Reason: NAUSEA AND/OR VOMITING Oxycodone HCl (Roxicodone -) 5 mg PEG Q6H PRN PRN Reason: PAIN Last Admin: 11/30/16 02:55 Dose: 5 mg Pantoprazole Sodium (Protonix Packets For Oral Suspension -) 40 mg NGT DAILY [facility] Last Admin: 12/01/16 10:51 Dose: 40 mg Zinc Sulfate (Orazinc -) 220 mg PEG DAILY [facility] Last Admin: 12/01/16 10:52 Dose: 220 mg - Objective Vital Signs: Vital Signs Temperature 98.2 F 12/01/16 10:00 Pulse Rate 103 H 12/01/16 15:01 Respiratory Rate 22 12/01/16 13:49 Blood Pressure 102/46 12/01/16 10:00 O2 Sat by Pulse Oximetry (%) 100 12/01/16 15:01 Constitutional: Yes: Calm Eyes: Yes: Conjunctiva Clear Neck: Yes: Other (trache) Cardiovascular: Yes: S1, S2 Respiratory: Yes: Mechanically Ventilated Gastrointestinal: Yes: Other (peg tube) Genitourinary: Yes: Incontinence Musculoskeletal: Yes: Muscle Weakness Edema: No Labs: CBC, BMP 12/01/16 07:00 12/01/16 07:00 INR, PTT INR 1.95 (0.82-1.09) H D 11/23/16 01:00 Fibrinogen 279.0 mg/dL (238-498) 11/14/16 06:15 Problem List - Problems (1) Cardiopulmonary arrest Code(s): I46.9 - CARDIAC ARREST, CAUSE UNSPECIFIED (2) DVT (deep venous thrombosis) Code(s): I82.409 - ACUTE EMBOLISM AND THOMBOS UNSP DEEP VN UNSP LOWER EXTREMITY (3) ESRD (end stage renal disease) on dialysis Code(s): N18.6 - END STAGE RENAL DISEASE Z99.2 - DEPENDENCE ON RENAL DIALYSIS (4) HCV (hepatitis C virus) Code(s): B19.20 - UNSPECIFIED VIRAL HEPATITIS C WITHOUT HEPATIC COMA (5) Respiratory failure Code(s): J96.90 - RESPIRATORY FAILURE, UNSP, UNSP W HYPOXIA OR HYPERCAPNIA Assessment/Plan Current Medications Generic Name Dose Route Start Last Admin Trade Name Freq PRN Reason Stop Dose Admin Acetaminophen 650 mg 11/29/16 15:26 11/30/16 22:35 Tylenol Oral Solution - PO 650 mg Q6H PRN Administration FEVER OR PAIN Albuterol Sulfate 1 amp 11/29/16 15:26 Ventolin 0.083% Nebulizer Soln - NEB Q1H PRN SHORT OF BREATH/WHEEZING Albuterol/Ipratropium 1 amp 11/29/16 22:00 12/01/16 14:10 Duoneb - NEB 1 amp TIDR [facility] Administration Amino Acids 30 ml 11/29/16 17:30 12/01/16 10:51 Prosource No Carb Liquid Pkt PO 30 ml BID@0800,1730 [facility] Administration Ascorbic Acid 500 mg 11/30/16 10:00 12/01/16 10:52 Vitamin C - PO 500 mg DAILY [facility] Administration Bacitracin 1 applic 11/30/16 10:00 12/01/16 10:52 Bacitracin - TP 1 applic DAILY [facility] Administration Calcitriol 0.5 mcg 11/30/16 10:00 12/01/16 10:52 Rocaltrol Liquid - NGT 0.5 mcg DAILY [facility] Administration Amino Acids 1,000 mls @ 30 mls/hr 11/30/16 16:15 11/30/16 17:54 Clinimix - IV 30 mls/hr Q24H [facility] Administration Potassium Chloride 100 mls @ 100 mls/hr 12/01/16 15:15 Potassium Chloride 10 Meq Premix Ivpb - IVPB 12/01/16 16:14 Q60M [facility] Levetiracetam 500 mg 11/29/16 22:00 12/01/16 10:52 Keppra Oral Solution - PEG 500 mg BID [facility] Administration Ondansetron HCl 4 mg 11/29/16 15:26 Zofran Odt - SL Q8H PRN NAUSEA AND/OR VOMITING Oxycodone HCl 5 mg 11/29/16 15:26 11/30/16 02:55 Roxicodone - PEG 5 mg Q6H PRN Administration PAIN Pantoprazole Sodium 40 mg 11/30/16 10:00 12/01/16 10:51 Protonix Packets For Oral Suspension - NGT 40 mg DAILY [facility] Administration Zinc Sulfate 220 mg 11/30/16 10:00 12/01/16 10:52 Orazinc - PEG 220 mg DAILY [facility] Administration Impression 1. ESRD 2. s/p cardiopulmonary arrest 3. acute respiratory failure 4. Pneumonia 5. DVT of right leg 6. S/P Seizure following the arrest 7. Right renal complex cyst > 5cms in diameter 8. Anemia 9. Thrombocytopenia 10. H/O HCV 11. GI bleed 12. s/p exploratory laparotomy, lysis of adhesions, small bowel resection, and feeding jejunostomy Plan - will stop clinimix - cont feeds as tolerated - repalce potassium - will arrange for HD in am - will cont epogen for anemia - surgery following pt - vent support, weaning as tolerated Dr Espino
--- NOTE | 2016-12-01 16:22 | PN ---
Progress Note (short form) - Note Progress Note: feeds had been started earlier by the nursing staff via the [email or web address]. Ngt residual checked and minimal -3ml. removed NGT.
[2016-12-01] MEDS ORDERED: MAGNESIUM SULF 50% (8.12 MEQ/2 ML-1 GM VIAL) IVPB ONE (16:45)
[2016-12-01] MEDS ORDERED: POTASSIUM PHOSPHATE 30 MM in SODIUM CHLORIDE 500 ML IVPB ONE (18:00)
[2016-12-01] MEDS ORDERED: KCL 10 MEQ IVPB 100 ML IVPB SCH (18:00)
[2016-12-02] MEDS: ALBUTEROL SO4 2.5/IPRATROPIUM 0.5 INH SOL 3 ML VIAL.NEB. NEB SCH ×3 (06:45→22:05)
[2016-12-02 07:03] LABS: MCH 33.2 pg (25.7-33.7); MCHC 32.6 g/dl (32.0-36.0); MEAN CELL VOLUME 101.8 fl (80-96); MEAN PLT VOLUME 10.9 fl (7.5-11.1); PLATELET COUNT 27 K/MM3 (134-434); RDW 22.1 % (11.6-15.6); WHITE BLOOD COUNT 13.6 K/mm3 (4.0-10.0)
[2016-12-02 08:02] LABS: CALCIUM 7.8 mg/dL (8.5-10.1); CREATININE 2.7 mg/dL (0.55-1.02); PHOSPHOROUS 3.2 mg/dL (2.5-4.9)
[2016-12-02] MEDS ORDERED: EPOETIN ALFA 10,000 UNIT/1 ML VIAL IVPUSH ONE (09:00)
--- NOTE | 2016-12-02 09:40 | PN ---
Progress Note, Physician Chief Complaint: awake answers yes/no questions wants higher pain rx dose - Current Medication List Current Medications: Active Medications Acetaminophen (Tylenol Oral Solution -) 650 mg PO Q6H PRN PRN Reason: FEVER OR PAIN Last Admin: 11/30/16 22:35 Dose: 650 mg Albuterol Sulfate (Ventolin 0.083% Nebulizer Soln -) 1 amp NEB Q1H PRN PRN Reason: SHORT OF BREATH/WHEEZING Albuterol/Ipratropium (Duoneb -) 1 amp NEB TIDR [facility] Last Admin: 12/02/16 06:45 Dose: 1 amp Amino Acids (Prosource No Carb Liquid Pkt) 30 ml PO BID@0800,1730 [facility] Last Admin: 12/01/16 17:04 Dose: 30 ml Ascorbic Acid (Vitamin C -) 500 mg PO DAILY [facility] Last Admin: 12/01/16 10:52 Dose: 500 mg Bacitracin (Bacitracin -) 1 applic TP DAILY [facility] Last Admin: 12/01/16 10:52 Dose: 1 applic Calcitriol (Rocaltrol Liquid -) 0.5 mcg NGT DAILY [facility] Last Admin: 12/01/16 10:52 Dose: 0.5 mcg Levetiracetam (Keppra Oral Solution -) 500 mg PEG BID [facility] Last Admin: 12/01/16 23:04 Dose: 500 mg Ondansetron HCl (Zofran Odt -) 4 mg SL Q8H PRN PRN Reason: NAUSEA AND/OR VOMITING Oxycodone HCl (Roxicodone -) 5 mg PEG Q6H PRN PRN Reason: PAIN Last Admin: 11/30/16 02:55 Dose: 5 mg Pantoprazole Sodium (Protonix Packets For Oral Suspension -) 40 mg NGT DAILY [facility] Last Admin: 12/01/16 10:51 Dose: 40 mg Zinc Sulfate (Orazinc -) 220 mg PEG DAILY [facility] Last Admin: 12/01/16 10:52 Dose: 220 mg - Objective Vital Signs: Vital Signs Temperature 98.6 F 12/02/16 06:50 Pulse Rate 113 H 12/02/16 06:55 Respiratory Rate 18 12/02/16 06:55 Blood Pressure 97/50 12/02/16 06:55 O2 Sat by Pulse Oximetry (%) 99 12/01/16 21:00 Cardiovascular: Yes: WNL Respiratory: Yes: WNL Gastrointestinal: Yes: WNL Edema: No Labs: CBC, BMP 12/02/16 06:58 12/02/16 06:58 INR, PTT INR 1.95 (0.82-1.09) H D 11/23/16 01:00 Fibrinogen 279.0 mg/dL (238-498) 11/14/16 06:15 Problem List - Problems (1) Cardiopulmonary arrest Code(s): I46.9 - CARDIAC ARREST, CAUSE UNSPECIFIED (2) DVT (deep venous thrombosis) Code(s): I82.409 - ACUTE EMBOLISM AND THOMBOS UNSP DEEP VN UNSP LOWER EXTREMITY (3) ESRD (end stage renal disease) on dialysis Code(s): N18.6 - END STAGE RENAL DISEASE Z99.2 - DEPENDENCE ON RENAL DIALYSIS (4) Pneumonia Code(s): J18.9 - PNEUMONIA, UNSPECIFIED ORGANISM (5) Respiratory failure Code(s): J96.90 - RESPIRATORY FAILURE, UNSP, UNSP W HYPOXIA OR HYPERCAPNIA (6) Anemia Code(s): D64.9 - ANEMIA, UNSPECIFIED Qualifiers: Qualified Code(s): N18.9 - Chronic kidney disease, unspecified; D63.1 - Anemia in chronic kidney disease Assessment/Plan (1) Cardiopulmonary arrest Code(s): I46.9 - CARDIAC ARREST, CAUSE UNSPECIFIED (2) DVT (deep venous thrombosis) Code(s): I82.409 - ACUTE EMBOLISM AND THOMBOS UNSP DEEP VN UNSP LOWER EXTREMITY (3) ESRD (end stage renal disease) on dialysis Code(s): N18.6 - END STAGE RENAL DISEASE Z99.2 - DEPENDENCE ON RENAL DIALYSIS (4) HCV (hepatitis C virus) Code(s): B19.20 - UNSPECIFIED VIRAL HEPATITIS C WITHOUT HEPATIC COMA (5) Metabolic encephalopathy Code(s): G93.41 - METABOLIC ENCEPHALOPATHY (6) Pneumonia Code(s): J18.9 - PNEUMONIA, UNSPECIFIED ORGANISM (7) Respiratory failure Code(s): J96.90 - RESPIRATORY FAILURE, UNSP, UNSP W HYPOXIA OR HYPERCAPNIA (8) Dysphagia Code(s): R13.10 - DYSPHAGIA, UNSPECIFIED Assessment/Plan NGT REMOVED PEG SURGERY FOLLOW UP APPRECIATED TRACHEOSTOMY TO WEAN TOLERATED OFF VENT OVERALL POOR PROGNOSIS FOR SIGNIFICANT QUALITY OF LIFE DISCUSSED WITH . LT[facility] WHEN READY PLT 27 & HGB 7.7 -> HEME ON CASE. MONITOR GOAL OF TREATMENT? PASTOR ROSS
[2016-12-02] MEDS: levETIRAcetam 500 MG/5 ML ORAL SOLUTION (UNIT-DOSE CUPS) PEG SCH ×2 (10:41→21:59)
[2016-12-02] MEDS: CALCITRIOL 1 MCG/ML BOT NGT SCH (10:44)
[2016-12-02] MEDS: AMINO ACIDS/PROTEIN HYDROLYS 30 ML LIQUID.PKT PO SCH ×2 (10:47→17:15)
[2016-12-02] MEDS: BACITRACIN 30 GM TUBE TOPICAL OINTMENT TP SCH (10:47)
[2016-12-02] MEDS: ZINC SULFATE 220 MG CAPSULE (FP) PEG SCH (10:48)
[2016-12-02] MEDS: PANTOPRAZOLE SOD 40 MG SUSPENSION PACKET NGT SCH (10:48)
[2016-12-02] MEDS: oxyCODONE HCL 5 MG TABLET PEG PRN ×2 (10:49→21:58)
[2016-12-02] MEDS: ASCORBIC ACID 500 MG TABLET (FP) PO SCH (10:49)
[2016-12-02] MEDS: ACETAMINOPHEN 650 MG/20.3 ML ORAL SOLUTION (CUPS) PO PRN (10:50)
--- NOTE | 2016-12-02 11:13 | PN ---
Progress Note (short form) - Note Progress Note: PT without any further emesis, she has been on Jtube feeds at 20cc/hr. Vital Signs Period Temp Pulse Resp BP Sys/Hodgson Pulse Ox Last 24 Hr 98.0 F-98.8 F 73-118 15-23 90-150/45-61 99-100 PE: GEN: alert ABD: soft, non-distended, non-tender. Wound vac changed today. Retentions in place. No purulent drainage noted. Rectal tube in place with liquid brown stool CBC, BMP 12/02/16 06:58 12/02/16 06:58 A/P: s/p exp lap lysis of adhesion SB resection with J tube placement wound vac changed today, it was placed to help with serous drainage from ascites. Spoke with NS, plan is to increase her feeds to 30ml/hr Spoke with Dr. Canales and will continue current care, recommending to check for c diff. will order.
--- NOTE | 2016-12-02 17:34 | PN ---
Progress Note, Physician History of Present Illness: Pt seen and examined at bedside. She tolerated HD today. - Current Medication List Current Medications: Active Medications Acetaminophen (Tylenol Oral Solution -) 650 mg PO Q6H PRN PRN Reason: FEVER OR PAIN Last Admin: 12/02/16 10:50 Dose: 650 mg Albuterol Sulfate (Ventolin 0.083% Nebulizer Soln -) 1 amp NEB Q1H PRN PRN Reason: SHORT OF BREATH/WHEEZING Albuterol/Ipratropium (Duoneb -) 1 amp NEB [facility]R [facility] Last Admin: 12/02/16 14:10 Dose: 1 amp Amino Acids (Prosource No Carb Liquid Pkt) 30 ml PO BID@0800,1730 [facility] Last Admin: 12/02/16 17:15 Dose: 30 ml Ascorbic Acid (Vitamin C -) 500 mg PO DAILY [facility] Last Admin: 12/02/16 10:49 Dose: 500 mg Bacitracin (Bacitracin -) 1 applic TP DAILY [facility] Last Admin: 12/02/16 10:47 Dose: 1 applic Calcitriol (Rocaltrol Liquid -) 0.5 mcg NGT DAILY [facility] Last Admin: 12/02/16 10:44 Dose: 0.5 mcg Levetiracetam (Keppra Oral Solution -) 500 mg PEG BID [facility] Last Admin: 12/02/16 10:41 Dose: 500 mg Ondansetron HCl (Zofran Odt -) 4 mg SL Q8H PRN PRN Reason: NAUSEA AND/OR VOMITING Oxycodone HCl (Roxicodone -) 5 mg PEG Q6H PRN PRN Reason: PAIN Last Admin: 12/02/16 10:49 Dose: 5 mg Pantoprazole Sodium (Protonix Packets For Oral Suspension -) 40 mg NGT DAILY [facility] Last Admin: 12/02/16 10:48 Dose: 40 mg Zinc Sulfate (Orazinc -) 220 mg PEG DAILY [facility] Last Admin: 12/02/16 10:48 Dose: 220 mg - Objective Vital Signs: Vital Signs Temperature 98.4 F 12/02/16 14:22 Pulse Rate 105 H 12/02/16 14:22 Respiratory Rate 15 12/02/16 14:22 Blood Pressure 103/53 12/02/16 10:05 O2 Sat by Pulse Oximetry (%) 100 12/02/16 10:00 Constitutional: Yes: Calm Eyes: Yes: Conjunctiva Clear HENT: Yes: Atraumatic Neck: Yes: Other (trache) Cardiovascular: Yes: S1, S2 Respiratory: Yes: Mechanically Ventilated Gastrointestinal: Yes: Soft, Other (peg) Genitourinary: Yes: Incontinence Musculoskeletal: Yes: Muscle Weakness Edema: No Neurological: Yes: Oriented Labs: CBC, BMP 12/02/16 06:58 12/02/16 06:58 INR, PTT INR 1.95 (0.82-1.09) H D 11/23/16 01:00 Fibrinogen 279.0 mg/dL (238-498) 11/14/16 06:15 Problem List - Problems (1) Cardiopulmonary arrest Code(s): I46.9 - CARDIAC ARREST, CAUSE UNSPECIFIED (2) DVT (deep venous thrombosis) Code(s): I82.409 - ACUTE EMBOLISM AND THOMBOS UNSP DEEP VN UNSP LOWER EXTREMITY (3) ESRD (end stage renal disease) on dialysis Code(s): N18.6 - END STAGE RENAL DISEASE Z99.2 - DEPENDENCE ON RENAL DIALYSIS (4) HCV (hepatitis C virus) Code(s): B19.20 - UNSPECIFIED VIRAL HEPATITIS C WITHOUT HEPATIC COMA (5) Respiratory failure Code(s): J96.90 - RESPIRATORY FAILURE, UNSP, UNSP W HYPOXIA OR HYPERCAPNIA Assessment/Plan Current Medications Generic Name Dose Route Start Last Admin Trade Name Freq PRN Reason Stop Dose Admin Acetaminophen 650 mg 11/29/16 15:26 12/02/16 10:50 Tylenol Oral Solution - PO 650 mg Q6H PRN Administration FEVER OR PAIN Albuterol Sulfate 1 amp 11/29/16 15:26 Ventolin 0.083% Nebulizer Soln - NEB Q1H PRN SHORT OF BREATH/WHEEZING Albuterol/Ipratropium 1 amp 11/29/16 22:00 12/02/16 14:10 Duoneb - NEB 1 amp TIDR [facility] Administration Amino Acids 30 ml 11/29/16 17:30 12/02/16 17:15 Prosource No Carb Liquid Pkt PO 30 ml BID@0800,1730 [facility] Administration Ascorbic Acid 500 mg 11/30/16 10:00 12/02/16 10:49 Vitamin C - PO 500 mg DAILY [facility] Administration Bacitracin 1 applic 11/30/16 10:00 12/02/16 10:47 Bacitracin - TP 1 applic DAILY [facility] Administration Calcitriol 0.5 mcg 11/30/16 10:00 12/02/16 10:44 Rocaltrol Liquid - NGT 0.5 mcg DAILY [facility] Administration Levetiracetam 500 mg 11/29/16 22:00 12/02/16 10:41 Keppra Oral Solution - PEG 500 mg BID [facility] Administration Ondansetron HCl 4 mg 11/29/16 15:26 Zofran Odt - SL Q8H PRN NAUSEA AND/OR VOMITING Oxycodone HCl 5 mg 11/29/16 15:26 12/02/16 10:49 Roxicodone - PEG 5 mg Q6H PRN Administration PAIN Pantoprazole Sodium 40 mg 11/30/16 10:00 12/02/16 10:48 Protonix Packets For Oral Suspension - NGT 40 mg DAILY [facility] Administration Zinc Sulfate 220 mg 11/30/16 10:00 12/02/16 10:48 Orazinc - PEG 220 mg DAILY [facility] Administration Impression 1. ESRD 2. s/p cardiopulmonary arrest 3. acute respiratory failure 4. Pneumonia 5. DVT of right leg 6. S/P Seizure following the arrest 7. Right renal complex cyst > 5cms in diameter 8. Anemia 9. Thrombocytopenia 10. H/O HCV 11. GI bleed 12. s/p exploratory laparotomy, lysis of adhesions, small bowel resection, and feeding jejunostomy Plan - pt is tolerating diet so far - cont with feeds - pt tolerated HD today - discussed care with pts spouse and sister - will cont epogen for anemia - surgery following pt - vent support, weaning as tolerated Dr Espino
[2016-12-02] MEDS ORDERED: SODIUM CHLORIDE 250 ML IV ONE (19:00)
[2016-12-03] MEDS: ALBUTEROL SO4 2.5/IPRATROPIUM 0.5 INH SOL 3 ML VIAL.NEB. NEB SCH ×3 (06:45→22:19)
[2016-12-03 07:26] LABS: BASOPHIL 0.4 % (0-2.0); EOSINOPHIL 1.1 % (0-4.5); MCH 33.5 pg (25.7-33.7); MCHC 32.5 g/dl (32.0-36.0); MEAN PLT VOLUME 10.4 fl (7.5-11.1); NEUTROPHILS 79.2 % (42.8-82.8); RDW 22.4 % (11.6-15.6); WHITE BLOOD COUNT 12.2 K/mm3 (4.0-10.0)
[2016-12-03 07:33] LABS: PLATELET COUNT 16 K/MM3 (134-434)
[2016-12-03 08:17] LABS: ALBUMIN 1.4 g/dl (3.4-5.0); ANION GAP 11 (8-16); CALCIUM 7.9 mg/dL (8.5-10.1); CO2 25 mmol/L (21-32)
[2016-12-03 08:21] LABS: ALK PHOS 99 U/L (45-117); BILIRUBIN,TOTAL 0.9 mg/dL (0.2-1.0); GLUCOSE,RANDOM 99 mg/dL (74-106); SGOT/AST 19 U/L (15-37); SGPT/ALT < 6 U/L (12-78); TOT PROT 5.5 g/dl (6.4-8.2)
[2016-12-03] MEDS ORDERED: PT OWN MED DRAWER 7, Y5N ONE (09:06)
[2016-12-03] MEDS: ACETAMINOPHEN 650 MG/20.3 ML ORAL SOLUTION (CUPS) PO PRN ×2 (09:12→22:40)
[2016-12-03] MEDS: AMINO ACIDS/PROTEIN HYDROLYS 30 ML LIQUID.PKT PO SCH ×2 (09:13→17:55)
[2016-12-03] MEDS: BACITRACIN 30 GM TUBE TOPICAL OINTMENT TP SCH (09:14)
[2016-12-03] MEDS: oxyCODONE HCL 5 MG TABLET PEG PRN (09:14)
[2016-12-03] MEDS: ZINC SULFATE 220 MG CAPSULE (FP) PEG SCH (09:14)
[2016-12-03] MEDS: ASCORBIC ACID 500 MG TABLET (FP) PO SCH (09:14)
[2016-12-03] MEDS: PANTOPRAZOLE SOD 40 MG SUSPENSION PACKET NGT SCH (09:14)
[2016-12-03] MEDS: levETIRAcetam 500 MG/5 ML ORAL SOLUTION (UNIT-DOSE CUPS) PEG SCH ×2 (09:14→21:57)
[2016-12-03] MEDS: CALCITRIOL 1 MCG/ML BOT NGT SCH (09:15)
--- NOTE | 2016-12-03 10:45 | PN ---
Progress Note (short form) - Note Progress Note: Pt tolerated increase of feeds to 30ml/hr. No nausea or emesis. Her wound vac had a leak this am but is now functioning. Minimal drainage noted in the canister. Vital Signs Period Temp Pulse Resp BP Sys/Hodgson Pulse Ox Last 24 Hr 98.0 F-99.2 F 91-114 15-28 80-106/36-53 98-100 PE: ABD: soft, non-distended, vac in place. Rectal tube: light colored stool. CBC, BMP 12/03/16 06:45 12/03/16 06:45 A/P: s/p J TUBE now tolerating feeds Continue to monitor the pt for emesis c diff pending increase feeds as tolerated to maximum dose.
--- NOTE | 2016-12-03 12:15 | PN ---
Progress Note, Physician Chief Complaint: had d/w no distress smiles when sees me not answering questions - Current Medication List Current Medications: Active Medications Acetaminophen (Tylenol Oral Solution -) 650 mg PO Q6H PRN PRN Reason: FEVER OR PAIN Last Admin: 12/03/16 09:12 Dose: 650 mg Albuterol Sulfate (Ventolin 0.083% Nebulizer Soln -) 1 amp NEB Q1H PRN PRN Reason: SHORT OF BREATH/WHEEZING Albuterol/Ipratropium (Duoneb -) 1 amp NEB TIDR [facility] Last Admin: 12/03/16 06:45 Dose: 1 amp Amino Acids (Prosource No Carb Liquid Pkt) 30 ml PO BID@0800,1730 [facility] Last Admin: 12/03/16 09:13 Dose: 30 ml Ascorbic Acid (Vitamin C -) 500 mg PO DAILY [facility] Last Admin: 12/03/16 09:14 Dose: 500 mg Bacitracin (Bacitracin -) 1 applic TP DAILY [facility] Last Admin: 12/03/16 09:14 Dose: 1 applic Calcitriol (Rocaltrol Liquid -) 0.5 mcg NGT DAILY [facility] Last Admin: 12/03/16 09:15 Dose: 0.5 mcg Levetiracetam (Keppra Oral Solution -) 500 mg PEG BID [facility] Last Admin: 12/03/16 09:14 Dose: 500 mg Ondansetron HCl (Zofran Odt -) 4 mg SL Q8H PRN PRN Reason: NAUSEA AND/OR VOMITING Oxycodone HCl (Roxicodone -) 5 mg PEG Q6H PRN PRN Reason: PAIN Last Admin: 12/03/16 09:14 Dose: 5 mg Pantoprazole Sodium (Protonix Packets For Oral Suspension -) 40 mg NGT DAILY [facility] Last Admin: 12/03/16 09:14 Dose: 40 mg Zinc Sulfate (Orazinc -) 220 mg PEG DAILY [facility] Last Admin: 12/03/16 09:14 Dose: 220 mg - Objective Vital Signs: Vital Signs Temperature 99.2 F 12/03/16 09:01 Pulse Rate 97 H 12/03/16 10:15 Respiratory Rate 15 12/03/16 10:15 Blood Pressure 102/42 12/03/16 09:01 O2 Sat by Pulse Oximetry (%) 95 12/03/16 10:15 Cardiovascular: Yes: WNL Respiratory: Yes: WNL Gastrointestinal: Yes: WNL Edema: Yes Labs: CBC, BMP 12/03/16 06:45 12/03/16 06:45 INR, PTT INR 1.95 (0.82-1.09) H D 11/23/16 01:00 Fibrinogen 279.0 mg/dL (238-498) 11/14/16 06:15 Problem List - Problems (1) Cardiopulmonary arrest Code(s): I46.9 - CARDIAC ARREST, CAUSE UNSPECIFIED (2) DVT (deep venous thrombosis) Code(s): I82.409 - ACUTE EMBOLISM AND THOMBOS UNSP DEEP VN UNSP LOWER EXTREMITY (3) ESRD (end stage renal disease) on dialysis Code(s): N18.6 - END STAGE RENAL DISEASE Z99.2 - DEPENDENCE ON RENAL DIALYSIS (4) Pneumonia Code(s): J18.9 - PNEUMONIA, UNSPECIFIED ORGANISM (5) Respiratory failure Code(s): J96.90 - RESPIRATORY FAILURE, UNSP, UNSP W HYPOXIA OR HYPERCAPNIA (6) Anemia Code(s): D64.9 - ANEMIA, UNSPECIFIED Qualifiers: Qualified Code(s): N18.9 - Chronic kidney disease, unspecified; D63.1 - Anemia in chronic kidney disease Assessment/Plan (1) Cardiopulmonary arrest Code(s): I46.9 - CARDIAC ARREST, CAUSE UNSPECIFIED (2) DVT (deep venous thrombosis) Code(s): I82.409 - ACUTE EMBOLISM AND THOMBOS UNSP DEEP VN UNSP LOWER EXTREMITY (3) ESRD (end stage renal disease) on dialysis Code(s): N18.6 - END STAGE RENAL DISEASE Z99.2 - DEPENDENCE ON RENAL DIALYSIS (4) HCV (hepatitis C virus) Code(s): B19.20 - UNSPECIFIED VIRAL HEPATITIS C WITHOUT HEPATIC COMA (5) Metabolic encephalopathy Code(s): G93.41 - METABOLIC ENCEPHALOPATHY (6) Pneumonia Code(s): J18.9 - PNEUMONIA, UNSPECIFIED ORGANISM (7) Respiratory failure Code(s): J96.90 - RESPIRATORY FAILURE, UNSP, UNSP W HYPOXIA OR HYPERCAPNIA (8) Dysphagia Code(s): R13.10 - DYSPHAGIA, UNSPECIFIED Assessment/Plan TOLERATING J-TUBE FEEDS SURGERY FOLLOW UP APPRECIATED TRACHEOSTOMY TO WEAN TOLERATED OFF VENT OVERALL POOR PROGNOSIS FOR SIGNIFICANT QUALITY OF LIFE DISCUSSED WITH . LTAC WHEN READY PLT 27 -> 16 -> CASE D/W HEME (GOAL OF TREATMENT? MAINTAIN >10) HGB 7.7 -> 7.4 -> pRBC x 1 + HEME ON CASE. MONITOR GOAL OF TREATMENT? 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
[2016-12-03] MEDS ORDERED: FUROSEMIDE 40 MG/4 ML INJECTABLE VIAL IVPUSH SCH (12:19)
[2016-12-03] MEDS: KCL 10 MEQ IVPB 100 ML IVPB SCH ×2 (13:00→14:13)
[2016-12-03] MEDS ORDERED: SODIUM CHLORIDE 1,000 ML IV SCH (15:00)
--- NOTE | 2016-12-03 15:02 | PN ---
Progress Note (short form) - Note Progress Note: Was asked to see patient again this morning due to worsening of thrombocytopenia. No acute recent events. No bleeding seen at this time. Patient without new complaints. Chart reviewed - no recent fever - possibly more tachycardic and hypotensive over past several days. Platelets trending down consistently (together with Hb) over past approx 10 days. Meds reviewed: Current Medications Generic Name Dose Route Start Last Admin Trade Name Freq PRN Reason Stop Dose Admin Acetaminophen 650 mg 11/29/16 15:26 12/03/16 09:12 Tylenol Oral Solution - PO 650 mg Q6H PRN Administration FEVER OR PAIN Albuterol/Ipratropium 1 amp 11/29/16 22:00 12/03/16 14:16 Duoneb - NEB 1 amp TIDR [facility] Administration Amino Acids 30 ml 11/29/16 17:30 12/03/16 09:13 Prosource No Carb Liquid Pkt PO 30 ml BID@0800,1730 [facility] Administration Ascorbic Acid 500 mg 11/30/16 10:00 12/03/16 09:14 Vitamin C - PO 500 mg DAILY [facility] Administration Bacitracin 1 applic 11/30/16 10:00 12/03/16 09:14 Bacitracin - TP 1 applic DAILY [facility] Administration Calcitriol 0.5 mcg 11/30/16 10:00 12/03/16 09:15 Rocaltrol Liquid - NGT 0.5 mcg DAILY [facility] Administration Sodium Chloride 1,000 mls @ 50 mls/hr 12/03/16 15:00 Normal Saline - IV 12/04/16 14:54 ASDIR MARIE Levetiracetam 500 mg 11/29/16 22:00 12/03/16 09:14 Keppra Oral Solution - PEG 500 mg BID [facility] Administration Ondansetron HCl 4 mg 11/29/16 15:26 Zofran Odt - SL Q8H PRN NAUSEA AND/OR VOMITING Oxycodone HCl 5 mg 11/29/16 15:26 12/03/16 09:14 Roxicodone - PEG 5 mg Q6H PRN Administration PAIN Pantoprazole Sodium 40 mg 11/30/16 10:00 12/03/16 09:14 Protonix Packets For Oral Suspension - NGT 40 mg DAILY [facility] Administration Zinc Sulfate 220 mg 11/30/16 10:00 12/03/16 09:14 Orazinc - PEG 220 mg DAILY [facility] Administration On exam: Last Vital Signs Temp Pulse Resp BP Pulse Ox 98.6 F 101 H 24 84/42 95 12/03/16 14:30 12/03/16 14:30 12/03/16 14:30 12/03/16 14:30 12/03/16 10:15 Intubated, tracheostomy. Responsive, follows commands. Abdomen: soft, drain in-situ. Chest: clear. CVS: S1, S2, tachy. Neuro: Alert, non-focal. Skin: no petechiae CBC, BMP 12/03/16 06:45 12/03/16 06:45 Assesment: Elderly female, ESRF on HD, recent laparotomy, VDRF. Worsening thrombocytopenia, likely attributable to critical illness. No evidence to strongly suggest sepsis at this time, but would have a low threshold for instituting empiroc Abics. Possible drug-related - if Kepra not strongly indicated would hold. Also consider alternate to protonix for GI pophylaxis. Prognosis is poor. If active management is pursued then would recommend prophylactic platelet transfusion to maintain plt count > 10K. RBC transfusion PRN, with ongoing [facility] a dialysis. Monitor closely for GI bleed.
--- NOTE | 2016-12-03 15:57 | PN ---
Progress Note (short form) - Note Progress Note: stable from surgical point of view tolerating tube feedings wound stable with vac in place continue current management, advance tube feedings to meet nutritional goals as per nutrition
[2016-12-03] MEDS ORDERED: SODIUM CHLORIDE 250 ML IV ONE (16:30)
--- NOTE | 2016-12-03 17:33 | PN ---
Progress Note (short form) - Note Progress Note: NEUROLOGY Follow-up: Intubated. + spontaneous respirations. Opens eyes to name. Pupils 5 mm reactive. Full, roving EOM's May attend to examiner with eye contact. Blinks to threat. Rigid tone (R>L). IMP: S/P anoxic encephalopathy. Level of consciousness is slightly improved with some evidence of hemispheric (cortical) activity today. Suggest: Continue supportive care. Thank you very much, Tonny Campoverde MD
--- NOTE | 2016-12-03 18:00 | PN ---
Progress Note, Physician History of Present Illness: Pt seen and examined at bedside. She is awake. She was hypotensive today. - Current Medication List Current Medications: Active Medications Acetaminophen (Tylenol Oral Solution -) 650 mg PO Q6H PRN PRN Reason: FEVER OR PAIN Last Admin: 12/03/16 09:12 Dose: 650 mg Albuterol/Ipratropium (Duoneb -) 1 amp NEB TIDR [facility] Last Admin: 12/03/16 14:16 Dose: 1 amp Amino Acids (Prosource No Carb Liquid Pkt) 30 ml PO BID@0800,1730 [facility] Last Admin: 12/03/16 17:55 Dose: 30 ml Ascorbic Acid (Vitamin C -) 500 mg PO DAILY [facility] Last Admin: 12/03/16 09:14 Dose: 500 mg Bacitracin (Bacitracin -) 1 applic TP DAILY [facility] Last Admin: 12/03/16 09:14 Dose: 1 applic Calcitriol (Rocaltrol Liquid -) 0.5 mcg NGT DAILY [facility] Last Admin: 12/03/16 09:15 Dose: 0.5 mcg Levetiracetam (Keppra Oral Solution -) 500 mg PEG BID [facility] Last Admin: 12/03/16 09:14 Dose: 500 mg Ondansetron HCl (Zofran Odt -) 4 mg SL Q8H PRN PRN Reason: NAUSEA AND/OR VOMITING Oxycodone HCl (Roxicodone -) 5 mg PEG Q6H PRN PRN Reason: PAIN Last Admin: 12/03/16 09:14 Dose: 5 mg Pantoprazole Sodium (Protonix Packets For Oral Suspension -) 40 mg NGT DAILY [facility] Last Admin: 12/03/16 09:14 Dose: 40 mg Zinc Sulfate (Orazinc -) 220 mg PEG DAILY [facility] Last Admin: 12/03/16 09:14 Dose: 220 mg - Objective Vital Signs: Vital Signs Temperature 98.4 F 12/03/16 17:22 Pulse Rate 106 H 12/03/16 17:22 Respiratory Rate 15 12/03/16 17:41 Blood Pressure 118/54 12/03/16 17:22 O2 Sat by Pulse Oximetry (%) 95 12/03/16 10:15 Constitutional: Yes: Calm Eyes: Yes: Conjunctiva Clear HENT: Yes: Atraumatic Neck: Yes: Other (trache) Cardiovascular: Yes: S1, S2 Respiratory: Yes: Mechanically Ventilated Gastrointestinal: Yes: Soft, Other (peg) Genitourinary: Yes: Incontinence Musculoskeletal: Yes: Muscle Weakness Edema: Yes Labs: CBC, BMP 12/03/16 06:45 12/03/16 06:45 INR, PTT INR 1.95 (0.82-1.09) H D 11/23/16 01:00 Fibrinogen 279.0 mg/dL (238-498) 11/14/16 06:15 Problem List - Problems (1) Cardiopulmonary arrest Code(s): I46.9 - CARDIAC ARREST, CAUSE UNSPECIFIED (2) DVT (deep venous thrombosis) Code(s): I82.409 - ACUTE EMBOLISM AND THOMBOS UNSP DEEP VN UNSP LOWER EXTREMITY (3) ESRD (end stage renal disease) on dialysis Code(s): N18.6 - END STAGE RENAL DISEASE Z99.2 - DEPENDENCE ON RENAL DIALYSIS (4) HCV (hepatitis C virus) Code(s): B19.20 - UNSPECIFIED VIRAL HEPATITIS C WITHOUT HEPATIC COMA (5) Respiratory failure Code(s): J96.90 - RESPIRATORY FAILURE, UNSP, UNSP W HYPOXIA OR HYPERCAPNIA Assessment/Plan Impression 1. ESRD 2. s/p cardiopulmonary arrest 3. acute respiratory failure 4. Pneumonia 5. DVT of right leg 6. S/P Seizure following the arrest 7. Right renal complex cyst > 5cms in diameter 8. Anemia 9. Thrombocytopenia 10. H/O HCV 11. GI bleed 12. s/p exploratory laparotomy, lysis of adhesions, small bowel resection, and feeding jejunostomy Plan - recommend stopping saline and giving boluses if needed for hypotension - cont feeds and advance as tolerated - next HD on Sunday - will cont epogen for anemia - surgery following pt - vent support, weaning as tolerated Dr Espino
[2016-12-04] MEDS: ALBUTEROL SO4 2.5/IPRATROPIUM 0.5 INH SOL 3 ML VIAL.NEB. NEB SCH ×3 (06:45→22:00)
--- NOTE | 2016-12-04 07:02 | PN ---
Progress Note, Physician Chief Complaint: ANSWERS QUESTIONS NO PAIN NO CHEST PAIN NO SOB - Current Medication List Current Medications: Active Medications Acetaminophen (Tylenol Oral Solution -) 650 mg PO Q6H PRN PRN Reason: FEVER OR PAIN Last Admin: 12/03/16 22:40 Dose: 650 mg Albuterol/Ipratropium (Duoneb -) 1 amp NEB TIDR [facility] Last Admin: 12/03/16 22:19 Dose: 1 amp Amino Acids (Prosource No Carb Liquid Pkt) 30 ml PO BID@0800,1730 [facility] Last Admin: 12/03/16 17:55 Dose: 30 ml Ascorbic Acid (Vitamin C -) 500 mg PO DAILY [facility] Last Admin: 12/03/16 09:14 Dose: 500 mg Bacitracin (Bacitracin -) 1 applic TP DAILY [facility] Last Admin: 12/03/16 09:14 Dose: 1 applic Calcitriol (Rocaltrol Liquid -) 0.5 mcg NGT DAILY [facility] Last Admin: 12/03/16 09:15 Dose: 0.5 mcg Levetiracetam (Keppra Oral Solution -) 500 mg PEG BID [facility] Last Admin: 12/03/16 21:57 Dose: 500 mg Ondansetron HCl (Zofran Odt -) 4 mg SL Q8H PRN PRN Reason: NAUSEA AND/OR VOMITING Oxycodone HCl (Roxicodone -) 5 mg PEG Q6H PRN PRN Reason: PAIN Last Admin: 12/03/16 09:14 Dose: 5 mg Pantoprazole Sodium (Protonix Packets For Oral Suspension -) 40 mg NGT DAILY [facility] Last Admin: 12/03/16 09:14 Dose: 40 mg Zinc Sulfate (Orazinc -) 220 mg PEG DAILY [facility] Last Admin: 12/03/16 09:14 Dose: 220 mg - Objective Vital Signs: Vital Signs Temperature 97.8 F 12/04/16 02:03 Pulse Rate 105 H 12/04/16 02:03 Respiratory Rate 18 12/04/16 02:20 Blood Pressure 103/42 12/04/16 02:03 O2 Sat by Pulse Oximetry (%) 95 12/03/16 21:00 Cardiovascular: Yes: WNL Respiratory: Yes: WNL Gastrointestinal: Yes: WNL Edema: Yes Labs: CBC, BMP 12/03/16 06:45 12/03/16 06:45 INR, PTT INR 1.95 (0.82-1.09) H D 11/23/16 01:00 Fibrinogen 279.0 mg/dL (238-498) 11/14/16 06:15 Problem List - Problems (1) Cardiopulmonary arrest Code(s): I46.9 - CARDIAC ARREST, CAUSE UNSPECIFIED (2) DVT (deep venous thrombosis) Code(s): I82.409 - ACUTE EMBOLISM AND THOMBOS UNSP DEEP VN UNSP LOWER EXTREMITY (3) ESRD (end stage renal disease) on dialysis Code(s): N18.6 - END STAGE RENAL DISEASE Z99.2 - DEPENDENCE ON RENAL DIALYSIS (4) Pneumonia Code(s): J18.9 - PNEUMONIA, UNSPECIFIED ORGANISM (5) Respiratory failure Code(s): J96.90 - RESPIRATORY FAILURE, UNSP, UNSP W HYPOXIA OR HYPERCAPNIA (6) Anemia Code(s): D64.9 - ANEMIA, UNSPECIFIED Qualifiers: Qualified Code(s): N18.9 - Chronic kidney disease, unspecified; D63.1 - Anemia in chronic kidney disease Assessment/Plan (1) Cardiopulmonary arrest Code(s): I46.9 - CARDIAC ARREST, CAUSE UNSPECIFIED BP IMPROVED WITH IV BOLUS (2) DVT (deep venous thrombosis) Code(s): I82.409 - ACUTE EMBOLISM AND THOMBOS UNSP DEEP VN UNSP LOWER EXTREMITY (3) ESRD (end stage renal disease) on dialysis Code(s): N18.6 - END STAGE RENAL DISEASE Z99.2 - DEPENDENCE ON RENAL DIALYSIS (4) HCV (hepatitis C virus) Code(s): B19.20 - UNSPECIFIED VIRAL HEPATITIS C WITHOUT HEPATIC COMA (5) Metabolic encephalopathy Code(s): G93.41 - METABOLIC ENCEPHALOPATHY (6) Pneumonia Code(s): J18.9 - PNEUMONIA, UNSPECIFIED ORGANISM (7) Respiratory failure Code(s): J96.90 - RESPIRATORY FAILURE, UNSP, UNSP W HYPOXIA OR HYPERCAPNIA (8) Dysphagia Code(s): R13.10 - DYSPHAGIA, UNSPECIFIED Assessment/Plan TOLERATING J-TUBE FEEDS SURGERY FOLLOW UP APPRECIATED TRACHEOSTOMY TO WEAN TOLERATED OFF VENT OVERALL POOR PROGNOSIS FOR SIGNIFICANT QUALITY OF LIFE DISCUSSED WITH . LTAC WHEN READY PLT 27 -> 16 -> CASE D/W HEME (GOAL OF TREATMENT? MAINTAIN >10) HGB 7.7 -> 7.4 -> pRBC x 1 + HEME ON CASE. MONITOR GOAL OF TREATMENT? C DIFF NEG SURG ON CASE FOR SACRAL ULCER NUTRITION BP IMPROVED [employer]ACHINE [employer]IP[employer] VANDANA
[2016-12-04 07:30] LABS: BASOPHIL 0.5 % (0-2.0); EOSINOPHIL 1.3 % (0-4.5); MCH 32.3 pg (25.7-33.7); MCHC 32.7 g/dl (32.0-36.0); MEAN CELL VOLUME 98.8 fl (80-96); MEAN PLT VOLUME 10.6 fl (7.5-11.1); NEUTROPHILS 81.7 % (42.8-82.8); RDW 24.9 % (11.6-15.6); WHITE BLOOD COUNT 13.9 K/mm3 (4.0-10.0)
[2016-12-04 07:41] LABS: PLATELET COUNT 18 K/MM3 (134-434)
[2016-12-04 08:00] LABS: ALBUMIN 1.4 g/dl (3.4-5.0); ALK PHOS 102 U/L (45-117); ANION GAP 10 (8-16); BILIRUBIN,TOTAL 0.9 mg/dL (0.2-1.0); CO2 23 mmol/L (21-32); CREATININE 2.7 mg/dL (0.55-1.02); GLUCOSE,RANDOM 91 mg/dL (74-106); SGOT/AST 25 U/L (15-37); SGPT/ALT < 6 U/L (12-78); TOT PROT 5.6 g/dl (6.4-8.2)
[2016-12-04] MEDS: AMINO ACIDS/PROTEIN HYDROLYS 30 ML LIQUID.PKT PO SCH ×2 (08:30→17:22)
[2016-12-04] MEDS ORDERED: PT OWN MED DRAWER 7, Y5N ONE ×2 (09:54→12:39)
[2016-12-04] MEDS: FAMOTIDINE 20 MG/50 ML IVPB 50 ML IVPB SCH ×2 (11:01→22:44)
[2016-12-04] MEDS: BACITRACIN 30 GM TUBE TOPICAL OINTMENT TP SCH (11:01)
[2016-12-04] MEDS: ASCORBIC ACID 500 MG TABLET (FP) PO SCH (11:01)
[2016-12-04] MEDS: ZINC SULFATE 220 MG CAPSULE (FP) PEG SCH (11:01)
[2016-12-04] MEDS: levETIRAcetam 500 MG/5 ML ORAL SOLUTION (UNIT-DOSE CUPS) PEG SCH ×2 (11:02→22:44)
[2016-12-04] MEDS: CALCITRIOL 1 MCG/ML BOT NGT SCH (11:02)
[2016-12-04] MEDS ORDERED: POTASSIUM CHLORIDE 40 MEQ/30 ML UNIT DOSE CUP PEG ONE (12:31)
--- NOTE | 2016-12-04 12:31 | PN ---
Progress Note, Physician History of Present Illness: Pt seen and examined at bedside. She is awake. Pt remains mechanically ventilated. - Current Medication List Current Medications: Active Medications Acetaminophen (Tylenol Oral Solution -) 650 mg PO Q6H PRN PRN Reason: FEVER OR PAIN Last Admin: 12/03/16 22:40 Dose: 650 mg Albuterol/Ipratropium (Duoneb -) 1 amp NEB TIDR [facility] Last Admin: 12/04/16 06:45 Dose: 1 amp Amino Acids (Prosource No Carb Liquid Pkt) 30 ml PO BID@0800,1730 [facility] Last Admin: 12/04/16 08:30 Dose: 30 ml Ascorbic Acid (Vitamin C -) 500 mg PO DAILY [facility] Last Admin: 12/04/16 11:01 Dose: 500 mg Bacitracin (Bacitracin -) 1 applic TP DAILY [facility] Last Admin: 12/04/16 11:01 Dose: 1 applic Calcitriol (Rocaltrol Liquid -) 0.5 mcg NGT DAILY [facility] Last Admin: 12/04/16 11:02 Dose: 0.5 mcg Famotidine/Sodium Chloride (Pepcid 20 Mg Premixed Ivpb -) 50 mls @ 100 mls/hr IVPB BID [facility] Last Admin: 12/04/16 11:01 Dose: 100 mls/hr Levetiracetam (Keppra Oral Solution -) 500 mg PEG BID [facility] Last Admin: 12/04/16 11:02 Dose: 500 mg Ondansetron HCl (Zofran Odt -) 4 mg SL Q8H PRN PRN Reason: NAUSEA AND/OR VOMITING Oxycodone HCl (Roxicodone -) 5 mg PEG Q6H PRN PRN Reason: PAIN Last Admin: 12/03/16 09:14 Dose: 5 mg Zinc Sulfate (Orazinc -) 220 mg PEG DAILY [facility] Last Admin: 12/04/16 11:01 Dose: 220 mg - Objective Vital Signs: Vital Signs Temperature 98.3 F 12/04/16 10:00 Pulse Rate 108 H 12/04/16 10:28 Respiratory Rate 21 12/04/16 10:00 Blood Pressure 120/60 12/04/16 10:00 O2 Sat by Pulse Oximetry (%) 99 12/04/16 10:28 Constitutional: Yes: Calm Eyes: Yes: Conjunctiva Clear HENT: Yes: Atraumatic Neck: Yes: Supple Cardiovascular: Yes: S1, S2 Respiratory: Yes: Mechanically Ventilated Gastrointestinal: Yes: Soft, Other (peg) Musculoskeletal: Yes: Muscle Weakness Edema: Yes Labs: CBC, BMP 12/04/16 06:00 12/04/16 06:00 INR, PTT INR 1.95 (0.82-1.09) H D 11/23/16 01:00 Fibrinogen 279.0 mg/dL (238-498) 11/14/16 06:15 Problem List - Problems (1) Cardiopulmonary arrest Code(s): I46.9 - CARDIAC ARREST, CAUSE UNSPECIFIED (2) DVT (deep venous thrombosis) Code(s): I82.409 - ACUTE EMBOLISM AND THOMBOS UNSP DEEP VN UNSP LOWER EXTREMITY (3) ESRD (end stage renal disease) on dialysis Code(s): N18.6 - END STAGE RENAL DISEASE Z99.2 - DEPENDENCE ON RENAL DIALYSIS (4) HCV (hepatitis C virus) Code(s): B19.20 - UNSPECIFIED VIRAL HEPATITIS C WITHOUT HEPATIC COMA (5) Respiratory failure Code(s): J96.90 - RESPIRATORY FAILURE, UNSP, UNSP W HYPOXIA OR HYPERCAPNIA Assessment/Plan Current Medications Generic Name Dose Route Start Last Admin Trade Name Freq PRN Reason Stop Dose Admin Acetaminophen 650 mg 11/29/16 15:26 12/03/16 22:40 Tylenol Oral Solution - PO 650 mg Q6H PRN Administration FEVER OR PAIN Albuterol/Ipratropium 1 amp 11/29/16 22:00 12/04/16 06:45 Duoneb - NEB 1 amp TIDR MARIE Administration Amino Acids 30 ml 11/29/16 17:30 12/04/16 08:30 Prosource No Carb Liquid Pkt PO 30 ml BID@0800,1730 [facility] Administration Ascorbic Acid 500 mg 11/30/16 10:00 12/04/16 11:01 Vitamin C - PO 500 mg DAILY [facility] Administration Bacitracin 1 applic 11/30/16 10:00 12/04/16 11:01 Bacitracin - TP 1 applic DAILY [facility] Administration Calcitriol 0.5 mcg 11/30/16 10:00 12/04/16 11:02 Rocaltrol Liquid - NGT 0.5 mcg DAILY [facility] Administration Famotidine/Sodium Chloride 50 mls @ 100 mls/hr 12/04/16 10:00 12/04/16 11:01 Pepcid 20 Mg Premixed Ivpb - IVPB 100 mls/hr BID [facility] Administration Levetiracetam 500 mg 11/29/16 22:00 12/04/16 11:02 Keppra Oral Solution - PEG 500 mg BID [facility] Administration Ondansetron HCl 4 mg 11/29/16 15:26 Zofran Odt - SL Q8H PRN NAUSEA AND/OR VOMITING Oxycodone HCl 5 mg 11/29/16 15:26 12/03/16 09:14 Roxicodone - PEG 5 mg Q6H PRN Administration PAIN Zinc Sulfate 220 mg 11/30/16 10:00 12/04/16 11:01 Orazinc - PEG 220 mg DAILY [facility]IE Administration Impression 1. ESRD 2. s/p cardiopulmonary arrest 3. acute respiratory failure 4. Pneumonia 5. DVT of right leg 6. S/P Seizure following the arrest 7. Right renal complex cyst > 5cms in diameter 8. Anemia 9. Thrombocytopenia 10. H/O HCV 11. GI bleed 12. s/p exploratory laparotomy, lysis of adhesions, small bowel resection, and feeding jejunostomy Plan - HD in am - cont with feeds - replace potassium - will cont epogen for anemia - surgery following pt - vent support, weaning as tolerated Dr Espino
--- NOTE | 2016-12-04 13:25 | PN ---
Progress Note (short form) - Note Progress Note: Surgery-Dr. Ignacio Patient seen for wound vac replacement, not holding a seal per nursing. Patient is tolerating tube feeds, no emesis. Last Vital Signs Temp Pulse Resp BP Pulse Ox 98.3 F 108 H 21 120/60 99 12/04/16 10:00 12/04/16 10:28 12/04/16 10:00 12/04/16 10:00 12/04/16 10:28 CBC, BMP 12/04/16 06:00 12/04/16 06:00 Exam: Abd: Soft, nondistended, ADRIAN tube in place, wound vac replaced on rounds with good seal A/P Continue tube feeds Continue wound vac
--- NOTE | 2016-12-04 13:27 | PN ---
Progress Note (short form) - Note Progress Note: PULMONARY Vented via trach. Tolerating CPAP/PS 10/5. Awake. Last Vital Signs Temp Pulse Resp BP Pulse Ox 98.3 F 108 H 21 120/60 99 12/04/16 10:00 12/04/16 10:28 12/04/16 10:00 12/04/16 10:00 12/04/16 10:28 Gen: vented, awake Heart: RRR Lung: decreased breath sounds at the bases Abd: soft, nontender Ext: + UE edema CBC, BMP 12/04/16 06:00 12/04/16 06:00 Active Medications Acetaminophen (Tylenol Oral Solution -) 650 mg PO Q6H PRN PRN Reason: FEVER OR PAIN Last Admin: 12/03/16 22:40 Dose: 650 mg Albuterol/Ipratropium (Duoneb -) 1 amp NEB TIDR [facility] Last Admin: 12/04/16 06:45 Dose: 1 amp Amino Acids (Prosource No Carb Liquid Pkt) 30 ml PO BID@0800,1730 [facility] Last Admin: 12/04/16 08:30 Dose: 30 ml Ascorbic Acid (Vitamin C -) 500 mg PO DAILY [facility] Last Admin: 12/04/16 11:01 Dose: 500 mg Bacitracin (Bacitracin -) 1 applic TP DAILY [facility] Last Admin: 12/04/16 11:01 Dose: 1 applic Calcitriol (Rocaltrol Liquid -) 0.5 mcg NGT DAILY [facility] Last Admin: 12/04/16 11:02 Dose: 0.5 mcg Epoetin Cirilo (Epogen -) 10,000 units IVPUSH ONCE ONE Stop: 12/05/16 12:32 Famotidine/Sodium Chloride (Pepcid 20 Mg Premixed Ivpb -) 50 mls @ 100 mls/hr IVPB BID [facility] Last Admin: 12/04/16 11:01 Dose: 100 mls/hr Levetiracetam (Keppra Oral Solution -) 500 mg PEG BID [facility] Last Admin: 12/04/16 11:02 Dose: 500 mg Ondansetron HCl (Zofran Odt -) 4 mg SL Q8H PRN PRN Reason: NAUSEA AND/OR VOMITING Oxycodone HCl (Roxicodone -) 5 mg PEG Q6H PRN PRN Reason: PAIN Last Admin: 12/03/16 09:14 Dose: 5 mg Potassium Chloride (Kcl Oral Solution -) 40 meq PEG ONCE ONE Stop: 12/04/16 12:32 Zinc Sulfate (Orazinc -) 220 mg PEG DAILY [facility] Last Admin: 12/04/16 11:01 Dose: 220 mg A/P s/p PEA Cardiopulmonary Arrest s/p Hypothermia Protocol s/p Tracheostomy Pneumonia improved s/p Septic Shock Pulmonary HTN Lactic Acidosis resolved ESRD on HD r/o Anoxic Encephalopathy RLE distal DVT GI Bleed Thrombocytopenia - HD per renal - s/p antibiotics - monitor H/H - transfuse as needed - spontaneous breathing trials as tolerated - DVT/GI prophylaxis - continue discussions regarding goals of care
[2016-12-04] MEDS ORDERED: POTASSIUM CHLORIDE 40 MEQ/30 ML UNIT DOSE CUP ONE (14:42)
[2016-12-04] MEDS: ACETAMINOPHEN 650 MG/20.3 ML ORAL SOLUTION (CUPS) PO PRN (14:50)
--- NOTE | 2016-12-04 20:43 | PN ---
Progress Note (short form) - Note Progress Note: Patient seen and examined s/p trach arousable afvss Cor: RSR, No murmurs, No gallops Lungs: Clear to P&A Abd: Soft, Normal bowel sounds, No organomegaly Ext:No significant edema labs/meds reviewd A/P Intubated 4 times this admission Pneumonia with respiratory failure S/P Seizure following the arrest- ESRD LE edema with severe hypoalbuminemia Right renal complex cyst > 5cms in diameter H/O HCV/liver disease H/O GIB Cachexia Soleal DVT Thrombocytopena/coagulopathy s/p tracheostomy today RLE distal DVT --had been on heparin. Bled actively rectally and hnce hparin was stopped. s/p ivc filter placement thrombocytopnia/coagulopathy --due to sepsis/DIC vrsus undrlying Hp. c liver disease .transfusing platelets if actively bleeding or platelets < [phone] anemia -- chronic disease --ESRD/sepsis Abnormal CT--Lt. humrus dstructive lesion and hypodensities liver
[2016-12-05] MEDS: ALBUTEROL SO4 2.5/IPRATROPIUM 0.5 INH SOL 3 ML VIAL.NEB. NEB SCH ×3 (06:22→22:35)
[2016-12-05 08:05] LABS: BASOPHIL 0.5 % (0-2.0); MCH 32.4 pg (25.7-33.7); MCHC 32.8 g/dl (32.0-36.0); MEAN CELL VOLUME 98.8 fl (80-96); MEAN PLT VOLUME 11.9 fl (7.5-11.1); NEUTROPHILS 79.8 % (42.8-82.8); RDW 24.7 % (11.6-15.6); WHITE BLOOD COUNT 12.6 K/mm3 (4.0-10.0)
[2016-12-05 08:13] LABS: PLATELET COUNT 24 K/MM3 (134-434)
[2016-12-05 08:30] LABS: ALBUMIN 1.3 g/dl (3.4-5.0); ANION GAP 11 (8-16); CALCIUM 8.3 mg/dL (8.5-10.1); CO2 19 mmol/L (21-32); GLUCOSE,RANDOM 93 mg/dL (74-106); SGOT/AST 28 U/L (15-37)
[2016-12-05] MEDS ORDERED: EPOETIN ALFA 10,000 UNIT/1 ML VIAL IVPUSH ONE (08:30)
[2016-12-05 08:33] LABS: ALK PHOS 102 U/L (45-117); BILIRUBIN,TOTAL 0.8 mg/dL (0.2-1.0); CREATININE 3.3 mg/dL (0.55-1.02); SGPT/ALT < 6 U/L (12-78); TOT PROT 5.7 g/dl (6.4-8.2)
--- NOTE | 2016-12-05 08:51 | PN ---
Progress Note, Physician History of Present Illness: Pt seen and examined at bedside. She is currently getting HD. - Current Medication List Current Medications: Active Medications Acetaminophen (Tylenol Oral Solution -) 650 mg PO Q6H PRN PRN Reason: FEVER OR PAIN Last Admin: 12/04/16 14:50 Dose: 650 mg Albuterol/Ipratropium (Duoneb -) 1 amp NEB TIDR [facility] Last Admin: 12/05/16 06:22 Dose: 1 amp Amino Acids (Prosource No Carb Liquid Pkt) 30 ml PO BID@0800,1730 [facility] Last Admin: 12/04/16 17:22 Dose: 30 ml Ascorbic Acid (Vitamin C -) 500 mg PO DAILY [facility] Last Admin: 12/04/16 11:01 Dose: 500 mg Bacitracin (Bacitracin -) 1 applic TP DAILY [facility] Last Admin: 12/04/16 11:01 Dose: 1 applic Calcitriol (Rocaltrol Liquid -) 0.5 mcg NGT DAILY [facility] Last Admin: 12/04/16 11:02 Dose: 0.5 mcg Famotidine/Sodium Chloride (Pepcid 20 Mg Premixed Ivpb -) 50 mls @ 100 mls/hr IVPB BID [facility] Last Admin: 12/04/16 22:44 Dose: 100 mls/hr Levetiracetam (Keppra Oral Solution -) 500 mg PEG BID [facility] Last Admin: 12/04/16 22:44 Dose: 500 mg Ondansetron HCl (Zofran Odt -) 4 mg SL Q8H PRN PRN Reason: NAUSEA AND/OR VOMITING Oxycodone HCl (Roxicodone -) 5 mg PEG Q6H PRN PRN Reason: PAIN Last Admin: 12/03/16 09:14 Dose: 5 mg Zinc Sulfate (Orazinc -) 220 mg PEG DAILY [facility] Last Admin: 12/04/16 11:01 Dose: 220 mg - Objective Vital Signs: Vital Signs Temperature 98.3 F 12/05/16 06:55 Pulse Rate 100 H 12/05/16 08:28 Respiratory Rate 15 12/05/16 08:28 Blood Pressure 98/49 12/05/16 08:28 O2 Sat by Pulse Oximetry (%) 98 12/04/16 22:00 Constitutional: Yes: Calm Eyes: Yes: Conjunctiva Clear HENT: Yes: Atraumatic Neck: Yes: Other (trache) Cardiovascular: Yes: S1, S2 Respiratory: Yes: Mechanically Ventilated Gastrointestinal: Yes: Soft, Other (peg) Genitourinary: Yes: Incontinence Musculoskeletal: Yes: Muscle Weakness Edema: No Labs: CBC, BMP 12/05/16 07:40 12/05/16 07:40 INR, PTT INR 1.95 (0.82-1.09) H D 11/23/16 01:00 Fibrinogen 279.0 mg/dL (238-498) 11/14/16 06:15 Problem List - Problems (1) Cardiopulmonary arrest Code(s): I46.9 - CARDIAC ARREST, CAUSE UNSPECIFIED (2) DVT (deep venous thrombosis) Code(s): I82.409 - ACUTE EMBOLISM AND THOMBOS UNSP DEEP VN UNSP LOWER EXTREMITY (3) ESRD (end stage renal disease) on dialysis Code(s): N18.6 - END STAGE RENAL DISEASE Z99.2 - DEPENDENCE ON RENAL DIALYSIS (4) HCV (hepatitis C virus) Code(s): B19.20 - UNSPECIFIED VIRAL HEPATITIS C WITHOUT HEPATIC COMA (5) Respiratory failure Code(s): J96.90 - RESPIRATORY FAILURE, UNSP, UNSP W HYPOXIA OR HYPERCAPNIA Assessment/Plan Current Medications Generic Name Dose Route Start Last Admin Trade Name Freq PRN Reason Stop Dose Admin Acetaminophen 650 mg 11/29/16 15:26 12/04/16 14:50 Tylenol Oral Solution - PO 650 mg Q6H PRN Administration FEVER OR PAIN Albuterol/Ipratropium 1 amp 11/29/16 22:00 12/05/16 06:22 Duoneb - NEB 1 amp TIDR MARIE Administration Amino Acids 30 ml 11/29/16 17:30 12/04/16 17:22 Prosource No Carb Liquid Pkt PO 30 ml BID@0800,1730 [facility]IE Administration Ascorbic Acid 500 mg 11/30/16 10:00 12/04/16 11:01 Vitamin C - PO 500 mg DAILY [facility]IE Administration Bacitracin 1 applic 11/30/16 10:00 12/04/16 11:01 Bacitracin - TP 1 applic DAILY [facility] Administration Calcitriol 0.5 mcg 11/30/16 10:00 12/04/16 11:02 Rocaltrol Liquid - NGT 0.5 mcg DAILY [facility] Administration Famotidine/Sodium Chloride 50 mls @ 100 mls/hr 12/04/16 10:00 12/04/16 22:44 Pepcid 20 Mg Premixed Ivpb - IVPB 100 mls/hr BID [facility]IE Administration Levetiracetam 500 mg 11/29/16 22:00 12/04/16 22:44 Keppra Oral Solution - PEG 500 mg BID [facility]IE Administration Ondansetron HCl 4 mg 11/29/16 15:26 Zofran Odt - SL Q8H PRN NAUSEA AND/OR VOMITING Oxycodone HCl 5 mg 11/29/16 15:26 12/03/16 09:14 Roxicodone - PEG 5 mg Q6H PRN Administration PAIN Zinc Sulfate 220 mg 11/30/16 10:00 12/04/16 11:01 Orazinc - PEG 220 mg DAILY [facility]IE Administration Impression 1. ESRD 2. s/p cardiopulmonary arrest 3. acute respiratory failure 4. Pneumonia 5. DVT of right leg 6. S/P Seizure following the arrest 7. Right renal complex cyst > 5cms in diameter 8. Anemia 9. Thrombocytopenia 10. H/O HCV 11. GI bleed 12. s/p exploratory laparotomy, lysis of adhesions, small bowel resection, and feeding jejunostomy Plan - pt is tolerating HD - cont with feeds - will cont epogen for anemia - surgery following pt - vent support, weaning as tolerated Dr Espino
[2016-12-05] MEDS: AMINO ACIDS/PROTEIN HYDROLYS 30 ML LIQUID.PKT PO SCH ×2 (08:59→17:24)
--- NOTE | 2016-12-05 10:16 | PN ---
Progress Note (short form) - Note Progress Note: PULMONARY Vented on volume assist control. Being dialyzed. Last Vital Signs Temp Pulse Resp BP Pulse Ox 98.3 F 90 25 H 92/57 95 12/05/16 06:55 12/05/16 10:30 12/05/16 13:54 12/05/16 09:35 12/05/16 13:35 Gen: vented, awake Heart: RRR Lung: decreased breath sounds at the bases Abd: soft, nontender Ext: + UE edema CBC, BMP 12/05/16 07:40 12/05/16 07:40 Active Medications Acetaminophen (Tylenol Oral Solution -) 650 mg PO Q6H PRN PRN Reason: FEVER OR PAIN Last Admin: 12/04/16 14:50 Dose: 650 mg Albuterol/Ipratropium (Duoneb -) 1 amp NEB TIDR [facility] Last Admin: 12/05/16 13:20 Dose: 1 amp Amino Acids (Prosource No Carb Liquid Pkt) 30 ml PO BID@0800,1730 [facility] Last Admin: 12/05/16 08:59 Dose: Not Given Ascorbic Acid (Vitamin C -) 500 mg PO DAILY [facility] Last Admin: 12/05/16 11:09 Dose: 500 mg Bacitracin (Bacitracin -) 1 applic TP DAILY [facility] Last Admin: 12/05/16 11:00 Dose: 1 applic Calcitriol (Rocaltrol Liquid -) 0.5 mcg NGT DAILY [facility] Last Admin: 12/05/16 11:11 Dose: 0.5 mcg Famotidine/Sodium Chloride (Pepcid 20 Mg Premixed Ivpb -) 50 mls @ 100 mls/hr IVPB BID [facility] Last Admin: 12/05/16 11:00 Dose: 100 mls/hr Levetiracetam (Keppra Oral Solution -) 500 mg PEG BID [facility] Last Admin: 12/05/16 11:11 Dose: 500 mg Ondansetron HCl (Zofran Odt -) 4 mg SL Q8H PRN PRN Reason: NAUSEA AND/OR VOMITING Oxycodone HCl (Roxicodone -) 5 mg PEG Q6H PRN PRN Reason: PAIN Last Admin: 12/03/16 09:14 Dose: 5 mg Zinc Sulfate (Orazinc -) 220 mg PEG DAILY [facility] Last Admin: 12/05/16 11:09 Dose: 220 mg A/P s/p PEA Cardiopulmonary Arrest s/p Hypothermia Protocol s/p Tracheostomy Pneumonia improved s/p Septic Shock Pulmonary HTN Lactic Acidosis resolved ESRD on HD r/o Anoxic Encephalopathy RLE distal DVT GI Bleed Thrombocytopenia - HD per renal - s/p antibiotics - monitor CBC - transfuse as needed - spontaneous breathing trials as tolerated - DVT/GI prophylaxis - continue discussions regarding goals of care
[2016-12-05] MEDS: FAMOTIDINE 20 MG/50 ML IVPB 50 ML IVPB SCH ×3 (11:00→22:35)
[2016-12-05] MEDS: BACITRACIN 30 GM TUBE TOPICAL OINTMENT TP SCH (11:00)
[2016-12-05] MEDS ORDERED: PT OWN MED DRAWER 7, Y5N ONE (11:07)
[2016-12-05] MEDS: ASCORBIC ACID 500 MG TABLET (FP) PO SCH (11:09)
[2016-12-05] MEDS: ZINC SULFATE 220 MG CAPSULE (FP) PEG SCH (11:09)
[2016-12-05] MEDS: levETIRAcetam 500 MG/5 ML ORAL SOLUTION (UNIT-DOSE CUPS) PEG SCH ×2 (11:11→22:35)
[2016-12-05] MEDS: CALCITRIOL 1 MCG/ML BOT NGT SCH (11:11)
--- NOTE | 2016-12-05 15:52 | PN ---
Progress Note, Physician Chief Complaint: CHART REVIEWED ASLEEP TRACHEOSTOMY ON VENT - Current Medication List Current Medications: Active Medications Acetaminophen (Tylenol Oral Solution -) 650 mg PO Q6H PRN PRN Reason: FEVER OR PAIN Last Admin: 12/04/16 14:50 Dose: 650 mg Albuterol/Ipratropium (Duoneb -) 1 amp NEB TIDR [facility] Last Admin: 12/05/16 13:20 Dose: 1 amp Amino Acids (Prosource No Carb Liquid Pkt) 30 ml PO BID@0800,1730 [facility] Last Admin: 12/05/16 08:59 Dose: Not Given Ascorbic Acid (Vitamin C -) 500 mg PO DAILY [facility] Last Admin: 12/05/16 11:09 Dose: 500 mg Bacitracin (Bacitracin -) 1 applic TP DAILY [facility] Last Admin: 12/05/16 11:00 Dose: 1 applic Calcitriol (Rocaltrol Liquid -) 0.5 mcg NGT DAILY [facility] Last Admin: 12/05/16 11:11 Dose: 0.5 mcg Famotidine/Sodium Chloride (Pepcid 20 Mg Premixed Ivpb -) 50 mls @ 100 mls/hr IVPB BID [facility] Last Admin: 12/05/16 11:00 Dose: 100 mls/hr Levetiracetam (Keppra Oral Solution -) 500 mg PEG BID [facility] Last Admin: 12/05/16 11:11 Dose: 500 mg Ondansetron HCl (Zofran Odt -) 4 mg SL Q8H PRN PRN Reason: NAUSEA AND/OR VOMITING Oxycodone HCl (Roxicodone -) 5 mg PEG Q6H PRN PRN Reason: PAIN Last Admin: 12/03/16 09:14 Dose: 5 mg Zinc Sulfate (Orazinc -) 220 mg PEG DAILY [facility] Last Admin: 12/05/16 11:09 Dose: 220 mg - Objective Vital Signs: Vital Signs Temperature 99.1 F 12/05/16 14:00 Pulse Rate 111 H 12/05/16 14:00 Respiratory Rate 16 12/05/16 14:00 Blood Pressure 113/47 12/05/16 14:00 O2 Sat by Pulse Oximetry (%) 95 12/05/16 13:35 Constitutional: Yes: Severe Distress Eyes: Yes: WNL HENT: Yes: WNL Neck: Yes: WNL Cardiovascular: Yes: Pulse Irregular Respiratory: Yes: Mechanically Ventilated, Other Gastrointestinal: Yes: Tenderness Genitourinary: Yes: Incontinence Musculoskeletal: Yes: Muscle Weakness Extremities: Yes: Other Edema: Yes Peripheral Pulses WNL: Yes Integumentary: Yes: Pressure Ulcer, Rash, Venous Stasis Changes Wound/Incision: Yes: Other Neurological: Yes: Pre-Existing Deficit, Weakness ...Motor Strength: LLE, RLE Psychiatric: Yes: Other Labs: CBC, BMP 12/05/16 07:40 12/05/16 07:40 INR, PTT INR 1.95 (0.82-1.09) H D 11/23/16 01:00 Fibrinogen 279.0 mg/dL (238-498) 11/14/16 06:15 Problem List - Problems (1) Cardiopulmonary arrest Code(s): I46.9 - CARDIAC ARREST, CAUSE UNSPECIFIED (2) DVT (deep venous thrombosis) Code(s): I82.409 - ACUTE EMBOLISM AND THOMBOS UNSP DEEP VN UNSP LOWER EXTREMITY (3) ESRD (end stage renal disease) on dialysis Code(s): N18.6 - END STAGE RENAL DISEASE Z99.2 - DEPENDENCE ON RENAL DIALYSIS (4) HCV (hepatitis C virus) Code(s): B19.20 - UNSPECIFIED VIRAL HEPATITIS C WITHOUT HEPATIC COMA (5) Metabolic encephalopathy Code(s): G93.41 - METABOLIC ENCEPHALOPATHY (6) Pneumonia Code(s): J18.9 - PNEUMONIA, UNSPECIFIED ORGANISM (7) Respiratory failure Code(s): J96.90 - RESPIRATORY FAILURE, UNSP, UNSP W HYPOXIA OR HYPERCAPNIA (8) Dysphagia Code(s): R13.10 - DYSPHAGIA, UNSPECIFIED Assessment/Plan THIS IS A CHRONICALLY ILL WOMAN WHO HAS A TRACHEOSTOMY, J-TUBE, RENAL FAILURE ON HD SEPSIS, ABX IV AWAITING PLACEMENT ONCE MEDICALLY STABLE A GOOD QUALITY OF LIFE IS UNLIKELY POOR PROGNOSIS
[2016-12-05] MEDS: ACETAMINOPHEN 650 MG/20.3 ML ORAL SOLUTION (CUPS) PO PRN ×2 (17:24→22:35)
[2016-12-05] MEDS ORDERED: SODIUM CHLORIDE 250 ML IV ONE (21:15)
[2016-12-06] MEDS: ALBUTEROL SO4 2.5/IPRATROPIUM 0.5 INH SOL 3 ML VIAL.NEB. NEB SCH ×3 (06:01→23:05)
[2016-12-06 08:27] LABS: MCHC 33.2 g/dl (32.0-36.0); MEAN CELL VOLUME 99.6 fl (80-96); MEAN PLT VOLUME 11.9 fl (7.5-11.1); RDW 24.4 % (11.6-15.6); WHITE BLOOD COUNT 10.8 K/mm3 (4.0-10.0)
[2016-12-06 08:30] LABS: PLATELET COUNT 31 K/MM3 (134-434)
[2016-12-06 08:39] LABS: INR 1.77 (0.82-1.09); PROTHROMBIN TIME (PATIENT) 19.7 SEC (9.98-11.88)
[2016-12-06 09:00] LABS: ALBUMIN 1.4 g/dl (3.4-5.0); ANION GAP 10 (8-16); BILIRUBIN,TOTAL 0.8 mg/dL (0.2-1.0); CALCIUM 8.3 mg/dL (8.5-10.1); CO2 23 mmol/L (21-32); CREATININE 2.5 mg/dL (0.55-1.02); GLUCOSE,RANDOM 83 mg/dL (74-106); SGOT/AST 31 U/L (15-37); SGPT/ALT < 6 U/L (12-78); TOT PROT 5.8 g/dl (6.4-8.2)
[2016-12-06 09:01] LABS: ALK PHOS 100 U/L (45-117)
[2016-12-06] MEDS ORDERED: PT OWN MED DRAWER 7, Y5N ONE (09:57)
--- NOTE | 2016-12-06 10:08 | PN ---
Progress Note (short form) - Note Progress Note: Nursing staff states that her wound vac was alarming overnight so, it was removed. Overall there has been little drainage in the wound vac canister and minimal around the J tube site. Vital Signs Period Temp Pulse Resp BP Sys/Hodgson Pulse Ox Last 24 Hr 98.0 F-100.8 F 90-116 15-26 80-136/39-59 95-100 PE: GEN: Alert ABD: fascia remains intact, retentions in place. Small amount of serous fluid in ostomy around j tube. Feeds at 35 ml/hr. LE and UE without edema. Rectal tube-light stool CBC, BMP 12/06/16 06:50 12/06/16 06:00 A/P: 80 yo female s/p exp lap for Lysis of adhesions/SB resection and placement of Jtube tolerating feeds discontinued vac dressing, ordered wet to dry and will monitor. If dressings become saturated she may need the vac placed again to control the serous drainage. But overall her edema seems to have improved.
[2016-12-06] MEDS: AMINO ACIDS/PROTEIN HYDROLYS 30 ML LIQUID.PKT PO SCH ×2 (10:50→19:09)
[2016-12-06] MEDS: ASCORBIC ACID 500 MG TABLET (FP) PO SCH (10:50)
[2016-12-06] MEDS: FAMOTIDINE 20 MG/50 ML IVPB 50 ML IVPB SCH ×2 (10:50→21:45)
[2016-12-06] MEDS: ZINC SULFATE 220 MG CAPSULE (FP) PEG SCH (10:50)
[2016-12-06] MEDS: levETIRAcetam 500 MG/5 ML ORAL SOLUTION (UNIT-DOSE CUPS) PEG SCH ×2 (10:50→21:45)
[2016-12-06] MEDS: BACITRACIN 30 GM TUBE TOPICAL OINTMENT TP SCH (10:51)
[2016-12-06] MEDS: CALCITRIOL 1 MCG/ML BOT NGT SCH (10:51)
--- NOTE | 2016-12-06 12:18 | PN ---
Progress Note (short form) - Note Progress Note: PULMONARY Vented on volume assist control. Isolated temp yesterday. Last Vital Signs Temp Pulse Resp BP Pulse Ox 98.0 F 79 16 136/57 95 12/06/16 06:00 12/06/16 11:14 12/06/16 10:40 12/06/16 06:00 12/06/16 11:14 Gen: vented, awake Heart: RRR Lung: decreased breath sounds at the bases Abd: soft, nontender Ext: trace edema CBC, BMP 12/06/16 06:50 12/06/16 06:00 Active Medications Acetaminophen (Tylenol Oral Solution -) 650 mg PO Q6H PRN PRN Reason: FEVER OR PAIN Last Admin: 12/05/16 22:35 Dose: 650 mg Albuterol/Ipratropium (Duoneb -) 1 amp NEB TIDR [facility] Last Admin: 12/06/16 06:01 Dose: 1 amp Amino Acids (Prosource No Carb Liquid Pkt) 30 ml PO BID@0800,1730 [facility] Last Admin: 12/06/16 10:50 Dose: 30 ml Ascorbic Acid (Vitamin C -) 500 mg PO DAILY [facility] Last Admin: 12/06/16 10:50 Dose: 500 mg Bacitracin (Bacitracin -) 1 applic TP DAILY [facility] Last Admin: 12/06/16 10:51 Dose: 1 applic Calcitriol (Rocaltrol Liquid -) 0.5 mcg NGT DAILY [facility] Last Admin: 12/06/16 10:51 Dose: 0.5 mcg Famotidine/Sodium Chloride (Pepcid 20 Mg Premixed Ivpb -) 50 mls @ 100 mls/hr IVPB BID [facility] Last Admin: 12/06/16 10:50 Dose: 100 mls/hr Levetiracetam (Keppra Oral Solution -) 500 mg PEG BID [facility] Last Admin: 12/06/16 10:50 Dose: 500 mg Ondansetron HCl (Zofran Odt -) 4 mg SL Q8H PRN PRN Reason: NAUSEA AND/OR VOMITING Oxycodone HCl (Roxicodone -) 5 mg PEG Q6H PRN PRN Reason: PAIN Last Admin: 12/03/16 09:14 Dose: 5 mg Zinc Sulfate (Orazinc -) 220 mg PEG DAILY [facility] Last Admin: 12/06/16 10:50 Dose: 220 mg A/P s/p PEA Cardiopulmonary Arrest s/p Hypothermia Protocol s/p Tracheostomy Pneumonia improved s/p Septic Shock Pulmonary HTN Lactic Acidosis resolved ESRD on HD r/o Anoxic Encephalopathy RLE distal DVT GI Bleed Thrombocytopenia - HD per renal - s/p antibiotics - monitor CBC - transfuse as needed - spontaneous breathing trials as tolerated - DVT/GI prophylaxis - continue discussions regarding goals of care
--- NOTE | 2016-12-06 13:25 | PN ---
Progress Note, Physician Chief Complaint: MORE AWAKE AND ALERT TODAY RESTRAINTS SIGNED FOR LIMB AND MITTENS TO AVOID PATIENT DISRUPTING CARE AND HARMING HERSELF - Current Medication List Current Medications: Active Medications Acetaminophen (Tylenol Oral Solution -) 650 mg PO Q6H PRN PRN Reason: FEVER OR PAIN Last Admin: 12/05/16 22:35 Dose: 650 mg Albuterol/Ipratropium (Duoneb -) 1 amp NEB TIDR [facility] Last Admin: 12/06/16 06:01 Dose: 1 amp Amino Acids (Prosource No Carb Liquid Pkt) 30 ml PO BID@0800,1730 [facility] Last Admin: 12/06/16 10:50 Dose: 30 ml Ascorbic Acid (Vitamin C -) 500 mg PO DAILY [facility] Last Admin: 12/06/16 10:50 Dose: 500 mg Bacitracin (Bacitracin -) 1 applic TP DAILY [facility] Last Admin: 12/06/16 10:51 Dose: 1 applic Calcitriol (Rocaltrol Liquid -) 0.5 mcg NGT DAILY [facility] Last Admin: 12/06/16 10:51 Dose: 0.5 mcg Famotidine/Sodium Chloride (Pepcid 20 Mg Premixed Ivpb -) 50 mls @ 100 mls/hr IVPB BID [facility] Last Admin: 12/06/16 10:50 Dose: 100 mls/hr Levetiracetam (Keppra Oral Solution -) 500 mg PEG BID [facility] Last Admin: 12/06/16 10:50 Dose: 500 mg Ondansetron HCl (Zofran Odt -) 4 mg SL Q8H PRN PRN Reason: NAUSEA AND/OR VOMITING Oxycodone HCl (Roxicodone -) 5 mg PEG Q6H PRN PRN Reason: PAIN Last Admin: 12/03/16 09:14 Dose: 5 mg Zinc Sulfate (Orazinc -) 220 mg PEG DAILY [facility] Last Admin: 12/06/16 10:50 Dose: 220 mg - Objective Vital Signs: Vital Signs Temperature 98.0 F 12/06/16 06:00 Pulse Rate 79 12/06/16 11:14 Respiratory Rate 15 12/06/16 12:38 Blood Pressure 136/57 12/06/16 06:00 O2 Sat by Pulse Oximetry (%) 94 L 12/06/16 12:38 Constitutional: Yes: Moderate Distress Eyes: Yes: WNL HENT: Yes: WNL Neck: Yes: WNL Cardiovascular: Yes: WNL Respiratory: Yes: CTA Bilaterally, Mechanically Ventilated (TRACHEOSTOMY) Gastrointestinal: Yes: Tenderness, Other (JTUBE IN PLACE) ...Rectal Exam: Yes: Other (RECTAL TUBE) Musculoskeletal: Yes: Muscle Weakness Extremities: Yes: Other Edema: No Peripheral Pulses WNL: Yes Integumentary: Yes: Pressure Ulcer, Rash, Skin Tear Wound/Incision: Yes: Open to air, Dressing Dry and Intact (STAGE 3-4 SACRAL ULCER) Neurological: Yes: Pre-Existing Deficit ...Motor Strength: LLE, RLE Psychiatric: Yes: Other Labs: CBC, BMP 12/06/16 06:50 12/06/16 06:00 INR, PTT INR 1.77 (0.82-1.09) H 12/06/16 06:50 Fibrinogen 279.0 mg/dL (238-498) 11/14/16 06:15 Problem List - Problems (1) Cardiopulmonary arrest Code(s): I46.9 - CARDIAC ARREST, CAUSE UNSPECIFIED (2) DVT (deep venous thrombosis) Code(s): I82.409 - ACUTE EMBOLISM AND THOMBOS UNSP DEEP VN UNSP LOWER EXTREMITY (3) ESRD (end stage renal disease) on dialysis Code(s): N18.6 - END STAGE RENAL DISEASE Z99.2 - DEPENDENCE ON RENAL DIALYSIS (4) HCV (hepatitis C virus) Code(s): B19.20 - UNSPECIFIED VIRAL HEPATITIS C WITHOUT HEPATIC COMA (5) Metabolic encephalopathy Code(s): G93.41 - METABOLIC ENCEPHALOPATHY (6) Pneumonia Code(s): J18.9 - PNEUMONIA, UNSPECIFIED ORGANISM (7) Respiratory failure Code(s): J96.90 - RESPIRATORY FAILURE, UNSP, UNSP W HYPOXIA OR HYPERCAPNIA (8) Dysphagia Code(s): R13.10 - DYSPHAGIA, UNSPECIFIED Assessment/Plan THIS IS A CHRONICALLY ILL WOMAN WHO HAS A TRACHEOSTOMY, J-TUBE, RENAL FAILURE ON HD SEPSIS, ABX IV SACRAL DECUBITI ULCER WORSE WILL NEED SURGICAL DEBRIDEMENT WITH SANTYL RESTRAINTS RENEWED AWAITING PLACEMENT ONCE MEDICALLY STABLE A GOOD QUALITY OF LIFE IS UNLIKELY POOR PROGNOSIS
--- NOTE | 2016-12-06 14:32 | PN ---
Progress Note (short form) - Note Progress Note: stable tolerating jtube feedings wound clean continue to increase jtube feeding rate to goal
--- NOTE | 2016-12-06 15:28 | PN ---
Progress Note, Physician History of Present Illness: Pt seen and examined at bedside. She remains on ventilator. - Current Medication List Current Medications: Active Medications Acetaminophen (Tylenol Oral Solution -) 650 mg PO Q6H PRN PRN Reason: FEVER OR PAIN Last Admin: 12/05/16 22:35 Dose: 650 mg Albuterol/Ipratropium (Duoneb -) 1 amp NEB TIDR [facility] Last Admin: 12/06/16 14:56 Dose: 1 amp Amino Acids (Prosource No Carb Liquid Pkt) 30 ml PO BID@0800,1730 [facility] Last Admin: 12/06/16 10:50 Dose: 30 ml Ascorbic Acid (Vitamin C -) 500 mg PO DAILY [facility] Last Admin: 12/06/16 10:50 Dose: 500 mg Bacitracin (Bacitracin -) 1 applic TP DAILY [facility] Last Admin: 12/06/16 10:51 Dose: 1 applic Calcitriol (Rocaltrol Liquid -) 0.5 mcg NGT DAILY [facility] Last Admin: 12/06/16 10:51 Dose: 0.5 mcg Collagenase (Santyl -) 1 applic TP DAILY [facility] Famotidine/Sodium Chloride (Pepcid 20 Mg Premixed Ivpb -) 50 mls @ 100 mls/hr IVPB BID [facility] Last Admin: 12/06/16 10:50 Dose: 100 mls/hr Levetiracetam (Keppra Oral Solution -) 500 mg PEG BID [facility] Last Admin: 12/06/16 10:50 Dose: 500 mg Ondansetron HCl (Zofran Odt -) 4 mg SL Q8H PRN PRN Reason: NAUSEA AND/OR VOMITING Oxycodone HCl (Roxicodone -) 5 mg PEG Q6H PRN PRN Reason: PAIN Last Admin: 12/03/16 09:14 Dose: 5 mg Zinc Sulfate (Orazinc -) 220 mg PEG DAILY [facility] Last Admin: 12/06/16 10:50 Dose: 220 mg - Objective Vital Signs: Vital Signs Temperature 98.4 F 12/06/16 14:24 Pulse Rate 110 H 12/06/16 14:24 Respiratory Rate 12/06/16 14:40 Blood Pressure 111/44 12/06/16 14:24 O2 Sat by Pulse Oximetry (%) 94 L 12/06/16 12:38 Constitutional: Yes: Calm Eyes: Yes: Conjunctiva Clear HENT: Yes: Atraumatic Neck: Yes: Other (trache) Cardiovascular: Yes: S1, S2 Respiratory: Yes: Mechanically Ventilated Gastrointestinal: Yes: Other (peg) Musculoskeletal: Yes: Muscle Weakness Edema: No Labs: CBC, BMP 12/06/16 06:50 12/06/16 06:00 INR, PTT INR 1.77 (0.82-1.09) H 12/06/16 06:50 Fibrinogen 279.0 mg/dL (238-498) 11/14/16 06:15 Problem List - Problems (1) Cardiopulmonary arrest Code(s): I46.9 - CARDIAC ARREST, CAUSE UNSPECIFIED (2) DVT (deep venous thrombosis) Code(s): I82.409 - ACUTE EMBOLISM AND THOMBOS UNSP DEEP VN UNSP LOWER EXTREMITY (3) ESRD (end stage renal disease) on dialysis Code(s): N18.6 - END STAGE RENAL DISEASE Z99.2 - DEPENDENCE ON RENAL DIALYSIS (4) HCV (hepatitis C virus) Code(s): B19.20 - UNSPECIFIED VIRAL HEPATITIS C WITHOUT HEPATIC COMA (5) Respiratory failure Code(s): J96.90 - RESPIRATORY FAILURE, UNSP, UNSP W HYPOXIA OR HYPERCAPNIA Assessment/Plan Current Medications Generic Name Dose Route Start Last Admin Trade Name Freq PRN Reason Stop Dose Admin Acetaminophen 650 mg 11/29/16 15:26 12/05/16 22:35 Tylenol Oral Solution - PO 650 mg Q6H PRN Administration FEVER OR PAIN Albuterol/Ipratropium 1 amp 11/29/16 22:00 12/06/16 14:56 Duoneb - NEB 1 amp TIDR MARIE Administration Amino Acids 30 ml 11/29/16 17:30 12/06/16 10:50 Prosource No Carb Liquid Pkt PO 30 ml BID@0800,1730 [facility] Administration Ascorbic Acid 500 mg 11/30/16 10:00 12/06/16 10:50 Vitamin C - PO 500 mg DAILY [facility] Administration Bacitracin 1 applic 11/30/16 10:00 12/06/16 10:51 Bacitracin - TP 1 applic DAILY [facility] Administration Calcitriol 0.5 mcg 11/30/16 10:00 12/06/16 10:51 Rocaltrol Liquid - NGT 0.5 mcg DAILY [facility] Administration Collagenase 1 applic 12/06/16 13:30 Santyl - TP DAILY [facility] Famotidine/Sodium Chloride 50 mls @ 100 mls/hr 12/04/16 10:00 12/06/16 10:50 Pepcid 20 Mg Premixed Ivpb - IVPB 100 mls/hr BID [facility] Administration Levetiracetam 500 mg 11/29/16 22:00 12/06/16 10:50 Keppra Oral Solution - PEG 500 mg BID [facility] Administration Ondansetron HCl 4 mg 11/29/16 15:26 Zofran Odt - SL Q8H PRN NAUSEA AND/OR VOMITING Oxycodone HCl 5 mg 11/29/16 15:26 12/03/16 09:14 Roxicodone - PEG 5 mg Q6H PRN Administration PAIN Zinc Sulfate 220 mg 11/30/16 10:00 12/06/16 10:50 Orazinc - PEG 220 mg DAILY [facility] Administration Impression 1. ESRD 2. s/p cardiopulmonary arrest 3. acute respiratory failure 4. Pneumonia 5. DVT of right leg 6. S/P Seizure following the arrest 7. Right renal complex cyst > 5cms in diameter 8. Anemia 9. Thrombocytopenia 10. H/O HCV 11. GI bleed 12. s/p exploratory laparotomy, lysis of adhesions, small bowel resection, and feeding jejunostomy Plan - HD in am - cont with feeds and advance as tolerated - vent support, weaning per pulmonary - will cont epogen for anemia - surgery following pt Dr Espino
[2016-12-06] MEDS: COLLAGENASE CLOSTRIDIUM HIST. 30 GRAMS TUBE TP SCH (19:09)
[2016-12-07] MEDS: ALBUTEROL SO4 2.5/IPRATROPIUM 0.5 INH SOL 3 ML VIAL.NEB. NEB SCH ×3 (06:32→22:10)
[2016-12-07] MEDS ORDERED: EPOETIN ALFA 10,000 UNIT/1 ML VIAL IVPUSH ONE (07:00)
[2016-12-07] MEDS: ZINC SULFATE 220 MG CAPSULE (FP) PEG SCH (10:10)
[2016-12-07] MEDS: AMINO ACIDS/PROTEIN HYDROLYS 30 ML LIQUID.PKT PO SCH ×2 (10:10→17:33)
[2016-12-07] MEDS: levETIRAcetam 500 MG/5 ML ORAL SOLUTION (UNIT-DOSE CUPS) PEG SCH ×2 (10:10→21:10)
[2016-12-07] MEDS: FAMOTIDINE 20 MG/50 ML IVPB 50 ML IVPB SCH ×2 (10:10→21:10)
[2016-12-07] MEDS: COLLAGENASE CLOSTRIDIUM HIST. 30 GRAMS TUBE TP SCH (10:11)
[2016-12-07] MEDS: CALCITRIOL 1 MCG/ML BOT NGT SCH (10:11)
[2016-12-07] MEDS: BACITRACIN 30 GM TUBE TOPICAL OINTMENT TP SCH (10:11)
[2016-12-07] MEDS: ASCORBIC ACID 500 MG TABLET (FP) PO SCH (10:12)
[2016-12-07] MEDS: ACETAMINOPHEN 650 MG/20.3 ML ORAL SOLUTION (CUPS) PO PRN (10:17)
[2016-12-07] MEDS: oxyCODONE HCL 5 MG TABLET PEG PRN ×2 (10:17→20:17)
--- NOTE | 2016-12-07 10:40 | PN ---
Progress Note (short form) - Note Progress Note: Pt had 1/2 hour of dialysis today, stopped because of hypotension. Vital Signs Period Temp Pulse Resp BP Sys/Hodgson Pulse Ox Last 24 Hr 98.4 F-99.9 F 79-115 15-20 64-134/35-57 94-100 ABD: soft, non-distended, wound with some necrotic tissue at base. retention sutures in place. Feeds at 40 ml/hr. Rectal tube with light/yellow to brown stool. CBC, BMP 12/06/16 06:50 12/06/16 06:00 A/P: 81 yo female s/p SB resection/J tube placement Hypotensive today with HD session so it was held. Tolerating the feeds/rate increased to 40 ml/hr may increase to max goal of 45ml/hr. Local wound care, pt getting santyl to sacrum may apply to inferior aspect of wound, wound care order changed.
--- NOTE | 2016-12-07 10:46 | PN ---
Progress Note, Physician Chief Complaint: EVENTS REVIEWED DIALYSIS STOPPED DUE TO HYPOTENSION - Current Medication List Current Medications: Active Medications Acetaminophen (Tylenol Oral Solution -) 650 mg PO Q6H PRN PRN Reason: FEVER OR PAIN Last Admin: 12/07/16 10:17 Dose: 650 mg Albuterol/Ipratropium (Duoneb -) 1 amp NEB TIDR [facility] Last Admin: 12/07/16 06:32 Dose: 1 amp Amino Acids (Prosource No Carb Liquid Pkt) 30 ml PO BID@0800,1730 [facility] Last Admin: 12/07/16 10:10 Dose: 30 ml Ascorbic Acid (Vitamin C -) 500 mg PO DAILY [facility] Last Admin: 12/07/16 10:12 Dose: 500 mg Bacitracin (Bacitracin -) 1 applic TP DAILY [facility] Last Admin: 12/07/16 10:11 Dose: 1 applic Calcitriol (Rocaltrol Liquid -) 0.5 mcg NGT DAILY [facility] Last Admin: 12/07/16 10:11 Dose: 0.5 mcg Collagenase (Santyl -) 1 applic TP DAILY [facility] Last Admin: 12/07/16 10:11 Dose: 1 applic Famotidine/Sodium Chloride (Pepcid 20 Mg Premixed Ivpb -) 50 mls @ 100 mls/hr IVPB BID [facility] Last Admin: 12/07/16 10:10 Dose: 100 mls/hr Levetiracetam (Keppra Oral Solution -) 500 mg PEG BID [facility] Last Admin: 12/07/16 10:10 Dose: 500 mg Ondansetron HCl (Zofran Odt -) 4 mg SL Q8H PRN PRN Reason: NAUSEA AND/OR VOMITING Oxycodone HCl (Roxicodone -) 5 mg PEG Q6H PRN PRN Reason: PAIN Last Admin: 12/07/16 10:17 Dose: 5 mg Zinc Sulfate (Orazinc -) 220 mg PEG DAILY [facility] Last Admin: 12/07/16 10:10 Dose: 220 mg - Objective Vital Signs: Vital Signs Temperature 98.9 F 12/07/16 06:00 Pulse Rate 87 12/07/16 08:30 Respiratory Rate 19 12/07/16 08:30 Blood Pressure 94/47 12/07/16 08:30 O2 Sat by Pulse Oximetry (%) 100 12/06/16 21:00 Constitutional: Yes: Moderate Distress Eyes: Yes: WNL HENT: Yes: WNL Neck: Yes: WNL Cardiovascular: Yes: WNL Respiratory: Yes: Mechanically Ventilated Gastrointestinal: Yes: Soft, Tenderness Genitourinary: Yes: Incontinence Musculoskeletal: Yes: Muscle Weakness Extremities: Yes: Deformity Edema: No Peripheral Pulses WNL: Yes Integumentary: Yes: Pressure Ulcer, Rash Wound/Incision: Yes: Dressing Dry and Intact Neurological: Yes: Pre-Existing Deficit, Unsteady Gait, Weakness ...Motor Strength: LUE, LLE, RLE Psychiatric: Yes: Agitated Labs: CBC, BMP 12/06/16 06:50 12/06/16 06:00 INR, PTT INR 1.77 (0.82-1.09) H 12/06/16 06:50 Fibrinogen 279.0 mg/dL (238-498) 11/14/16 06:15 Problem List - Problems (1) Cardiopulmonary arrest Code(s): I46.9 - CARDIAC ARREST, CAUSE UNSPECIFIED (2) DVT (deep venous thrombosis) Code(s): I82.409 - ACUTE EMBOLISM AND THOMBOS UNSP DEEP VN UNSP LOWER EXTREMITY (3) ESRD (end stage renal disease) on dialysis Code(s): N18.6 - END STAGE RENAL DISEASE Z99.2 - DEPENDENCE ON RENAL DIALYSIS (4) HCV (hepatitis C virus) Code(s): B19.20 - UNSPECIFIED VIRAL HEPATITIS C WITHOUT HEPATIC COMA (5) Metabolic encephalopathy Code(s): G93.41 - METABOLIC ENCEPHALOPATHY (6) Pneumonia Code(s): J18.9 - PNEUMONIA, UNSPECIFIED ORGANISM (7) Respiratory failure Code(s): J96.90 - RESPIRATORY FAILURE, UNSP, UNSP W HYPOXIA OR HYPERCAPNIA (8) Dysphagia Code(s): R13.10 - DYSPHAGIA, UNSPECIFIED Assessment/Plan THIS IS A CHRONICALLY ILL WOMAN WHO HAS A TRACHEOSTOMY, J-TUBE, RENAL FAILURE ON HD SEPSIS, ABX IV SACRAL DECUBITI ULCER WORSE WILL NEED SURGICAL DEBRIDEMENT WITH SANTYL RESTRAINTS RENEWED AWAITING PLACEMENT ONCE MEDICALLY STABLE A GOOD QUALITY OF LIFE IS UNLIKELY POOR PROGNOSIS DIALYSIS STOPPED DUE TO HYPOTENSION READDRESS WITH NEPHROLOGY
--- NOTE | 2016-12-07 11:31 | PN ---
Progress Note (short form) - Note Progress Note: RENAL now on medsurg floor was dialyzed but could not tolerate full treatment with out dropping her pressure Last Vital Signs Temp Pulse Resp BP Pulse Ox 98.9 F 87 14 94/47 100 12/07/16 06:00 12/07/16 10:51 12/07/16 10:00 12/07/16 08:30 12/07/16 10:51 has a trach lungs clear cvs s1s2 rr tachy abd soft ext no edema, LUE avf pulsatile neuro awake has a rectal tube, full of liquid stool CBC, BMP 12/06/16 06:50 12/06/16 06:00 Current Medications Generic Name Dose Route Start Last Admin Trade Name Freq PRN Reason Stop Dose Admin Acetaminophen 650 mg 11/29/16 15:26 12/07/16 10:17 Tylenol Oral Solution - PO 650 mg Q6H PRN Administration FEVER OR PAIN Albuterol/Ipratropium 1 amp 11/29/16 22:00 12/07/16 06:32 Duoneb - NEB 1 amp TIDR [facility] Administration Amino Acids 30 ml 11/29/16 17:30 12/07/16 10:10 Prosource No Carb Liquid Pkt PO 30 ml BID@0800,1730 [facility] Administration Ascorbic Acid 500 mg 11/30/16 10:00 12/07/16 10:12 Vitamin C - PO 500 mg DAILY [facility] Administration Bacitracin 1 applic 11/30/16 10:00 12/07/16 10:11 Bacitracin - TP 1 applic DAILY [facility] Administration Calcitriol 0.5 mcg 11/30/16 10:00 12/07/16 10:11 Rocaltrol Liquid - NGT 0.5 mcg DAILY [facility] Administration Collagenase 1 applic 12/06/16 13:30 12/07/16 10:11 Santyl - TP 1 applic DAILY [facility] Administration Famotidine/Sodium Chloride 50 mls @ 100 mls/hr 12/04/16 10:00 12/07/16 10:10 Pepcid 20 Mg Premixed Ivpb - IVPB 100 mls/hr BID [facility] Administration Levetiracetam 500 mg 11/29/16 22:00 12/07/16 10:10 Keppra Oral Solution - PEG 500 mg BID [facility] Administration Ondansetron HCl 4 mg 03/08/17 15:26 Zofran Odt - SL Q8H PRN NAUSEA AND/OR VOMITING Oxycodone HCl 5 mg 11/29/16 15:26 12/07/16 10:17 Roxicodone - PEG 5 mg Q6H PRN Administration PAIN Zinc Sulfate 220 mg 11/30/16 10:00 12/07/16 10:10 Orazinc - PEG 220 mg DAILY [facility] Administration Impression 1. ESRD 2. s/p cardiopulmonary arrest 3. acute respiratory failure 4. Pneumonia 5. DVT of right leg 6. S/P Seizure following the arrest 7. Right renal complex cyst > 5cms in diameter 8. Anemia 9. Thrombocytopenia 10. H/O HCV 11. active GI bleed Plan continue phosphate replacement continue calcitriol HD had to be stopped due to hypotension. MV MV
--- NOTE | 2016-12-07 12:28 | PN ---
Progress Note (short form) - Note Progress Note: PULMONARY Vented on volume assist control. No fevers recorded. Last Vital Signs Temp Pulse Resp BP Pulse Ox 98.9 F 87 14 94/47 100 12/07/16 06:00 12/07/16 10:51 12/07/16 10:00 12/07/16 08:30 12/07/16 10:51 Gen: vented, awake Heart: RRR Lung: decreased breath sounds at the bases Abd: soft, nontender Ext: no edema CBC, BMP 12/06/16 06:50 12/06/16 06:00 Active Medications Acetaminophen (Tylenol Oral Solution -) 650 mg PO Q6H PRN PRN Reason: FEVER OR PAIN Last Admin: 12/07/16 10:17 Dose: 650 mg Albuterol/Ipratropium (Duoneb -) 1 amp NEB TIDR [facility] Last Admin: 12/07/16 06:32 Dose: 1 amp Amino Acids (Prosource No Carb Liquid Pkt) 30 ml PO BID@0800,1730 [facility] Last Admin: 12/07/16 10:10 Dose: 30 ml Ascorbic Acid (Vitamin C -) 500 mg PO DAILY [facility] Last Admin: 12/07/16 10:12 Dose: 500 mg Bacitracin (Bacitracin -) 1 applic TP DAILY [facility] Last Admin: 12/07/16 10:11 Dose: 1 applic Calcitriol (Rocaltrol Liquid -) 0.5 mcg NGT DAILY [facility] Last Admin: 12/07/16 10:11 Dose: 0.5 mcg Collagenase (Santyl -) 1 applic TP DAILY [facility] Last Admin: 12/07/16 10:11 Dose: 1 applic Famotidine/Sodium Chloride (Pepcid 20 Mg Premixed Ivpb -) 50 mls @ 100 mls/hr IVPB BID [facility] Last Admin: 12/07/16 10:10 Dose: 100 mls/hr Levetiracetam (Keppra Oral Solution -) 500 mg PEG BID [facility] Last Admin: 12/07/16 10:10 Dose: 500 mg Ondansetron HCl (Zofran Odt -) 4 mg SL Q8H PRN PRN Reason: NAUSEA AND/OR VOMITING Oxycodone HCl (Roxicodone -) 5 mg PEG Q6H PRN PRN Reason: PAIN Last Admin: 12/07/16 10:17 Dose: 5 mg Zinc Sulfate (Orazinc -) 220 mg PEG DAILY [facility] Last Admin: 12/07/16 10:10 Dose: 220 mg A/P s/p PEA Cardiopulmonary Arrest s/p Hypothermia Protocol s/p Tracheostomy Pneumonia improved s/p Septic Shock Pulmonary HTN Lactic Acidosis resolved ESRD on HD r/o Anoxic Encephalopathy RLE distal DVT GI Bleed Thrombocytopenia - HD per renal - s/p antibiotics - monitor CBC - transfuse as needed - spontaneous breathing trials as tolerated - DVT/GI prophylaxis - continue discussions regarding goals of care
[2016-12-08] MEDS: ALBUTEROL SO4 2.5/IPRATROPIUM 0.5 INH SOL 3 ML VIAL.NEB. NEB SCH ×3 (06:45→22:53)
[2016-12-08 07:09] LABS: BASOPHIL 0.5 % (0-2.0); EOSINOPHIL 4.1 % (0-4.5); MCH 33.1 pg (25.7-33.7); MCHC 32.7 g/dl (32.0-36.0); MEAN CELL VOLUME 101.2 fl (80-96); MEAN PLT VOLUME 11.7 fl (7.5-11.1); NEUTROPHILS 71.7 % (42.8-82.8); PLATELET COUNT 49 K/MM3 (134-434); RDW 25.4 % (11.6-15.6); WHITE BLOOD COUNT 8.8 K/mm3 (4.0-10.0)
[2016-12-08] MEDS ORDERED: PT OWN MED DRAWER 7, Y5N ONE ×2 (09:24→21:00)
[2016-12-08] MEDS: levETIRAcetam 500 MG/5 ML ORAL SOLUTION (UNIT-DOSE CUPS) PEG SCH ×2 (09:33→21:15)
[2016-12-08] MEDS: AMINO ACIDS/PROTEIN HYDROLYS 30 ML LIQUID.PKT PO SCH ×2 (09:33→17:10)
[2016-12-08] MEDS: BACITRACIN 30 GM TUBE TOPICAL OINTMENT TP SCH (09:33)
[2016-12-08] MEDS: ASCORBIC ACID 500 MG TABLET (FP) PO SCH (09:34)
[2016-12-08] MEDS: ZINC SULFATE 220 MG CAPSULE (FP) PEG SCH (09:34)
[2016-12-08] MEDS: ACETAMINOPHEN 650 MG/20.3 ML ORAL SOLUTION (CUPS) PO PRN ×2 (09:34→17:10)
[2016-12-08] MEDS: oxyCODONE HCL 5 MG TABLET PEG PRN (09:34)
[2016-12-08] MEDS: FAMOTIDINE 20 MG/50 ML IVPB 50 ML IVPB SCH ×2 (09:35→21:15)
[2016-12-08] MEDS: CALCITRIOL 1 MCG/ML BOT NGT SCH (09:35)
[2016-12-08] MEDS: COLLAGENASE CLOSTRIDIUM HIST. 30 GRAMS TUBE TP SCH (09:35)
--- NOTE | 2016-12-08 11:37 | PN ---
Progress Note, Physician Chief Complaint: ASLEEP/TRACHEOSTOMY IN PLACE VENT SETTING S REVIEWED FEVER 102.5 - Current Medication List Current Medications: Active Medications Acetaminophen (Tylenol Oral Solution -) 650 mg PO Q6H PRN PRN Reason: FEVER OR PAIN Last Admin: 12/08/16 09:34 Dose: 650 mg Albuterol/Ipratropium (Duoneb -) 1 amp NEB TIDR [facility] Last Admin: 12/08/16 06:45 Dose: 1 amp Amino Acids (Prosource No Carb Liquid Pkt) 30 ml PO BID@0800,1730 [facility] Last Admin: 12/08/16 09:33 Dose: 30 ml Ascorbic Acid (Vitamin C -) 500 mg PO DAILY [facility] Last Admin: 12/08/16 09:34 Dose: 500 mg Bacitracin (Bacitracin -) 1 applic TP DAILY [facility] Last Admin: 12/08/16 09:33 Dose: 1 applic Calcitriol (Rocaltrol Liquid -) 0.5 mcg NGT DAILY [facility] Last Admin: 12/08/16 09:35 Dose: 0.5 mcg Collagenase (Santyl -) 1 applic TP DAILY [facility] Last Admin: 12/08/16 09:35 Dose: 1 applic Famotidine/Sodium Chloride (Pepcid 20 Mg Premixed Ivpb -) 50 mls @ 100 mls/hr IVPB BID [facility] Last Admin: 12/08/16 09:35 Dose: 100 mls/hr Levetiracetam (Keppra Oral Solution -) 500 mg PEG BID [facility] Last Admin: 12/08/16 09:33 Dose: 500 mg Ondansetron HCl (Zofran Odt -) 4 mg SL Q8H PRN PRN Reason: NAUSEA AND/OR VOMITING Zinc Sulfate (Orazinc -) 220 mg PEG DAILY [facility] Last Admin: 12/08/16 09:34 Dose: 220 mg - Objective Vital Signs: Vital Signs Temperature 102.6 F H 12/08/16 09:16 Pulse Rate 106 H 12/08/16 10:36 Respiratory Rate 15 12/08/16 10:36 Blood Pressure 106/45 12/08/16 09:16 O2 Sat by Pulse Oximetry (%) 100 12/08/16 10:36 Constitutional: Yes: Mild Distress Eyes: Yes: WNL HENT: Yes: WNL Neck: Yes: WNL Cardiovascular: Yes: WNL Respiratory: Yes: Mechanically Ventilated Gastrointestinal: Yes: Tenderness Genitourinary: Yes: Incontinence Musculoskeletal: Yes: Muscle Weakness Extremities: Yes: Other Edema: Yes Edema: LLE: Trace, RLE: Trace Peripheral Pulses WNL: No Integumentary: Yes: Pressure Ulcer Wound/Incision: Yes: Dressing Dry and Intact, Draining, Reddened Neurological: Yes: Confusion, Pre-Existing Deficit, Unsteady Gait, Weakness ...Motor Strength: LUE, LLE, RUE, RLE Psychiatric: Yes: Agitated Labs: CBC, BMP 12/08/16 05:35 12/06/16 06:00 INR, PTT INR 1.77 (0.82-1.09) H 12/06/16 06:50 Fibrinogen 279.0 mg/dL (238-498) 11/14/16 06:15 Problem List - Problems (1) Cardiopulmonary arrest Code(s): I46.9 - CARDIAC ARREST, CAUSE UNSPECIFIED (2) DVT (deep venous thrombosis) Code(s): I82.409 - ACUTE EMBOLISM AND THOMBOS UNSP DEEP VN UNSP LOWER EXTREMITY (3) ESRD (end stage renal disease) on dialysis Code(s): N18.6 - END STAGE RENAL DISEASE Z99.2 - DEPENDENCE ON RENAL DIALYSIS (4) HCV (hepatitis C virus) Code(s): B19.20 - UNSPECIFIED VIRAL HEPATITIS C WITHOUT HEPATIC COMA (5) Metabolic encephalopathy Code(s): G93.41 - METABOLIC ENCEPHALOPATHY (6) Pneumonia Code(s): J18.9 - PNEUMONIA, UNSPECIFIED ORGANISM (7) Respiratory failure Code(s): J96.90 - RESPIRATORY FAILURE, UNSP, UNSP W HYPOXIA OR HYPERCAPNIA (8) Dysphagia Code(s): R13.10 - DYSPHAGIA, UNSPECIFIED Assessment/Plan RESTRAINTS SIGNED FOR PATIENT SAFETY FEVER DOCUMENTED, NO CULTURES DONE DUE TO MULTIPLE FAACTORS, WILL DISCUSS WITH NURSING STAFF AND ID. WOUND CARE HD PER RENAL
[2016-12-08] MEDS ORDERED: FENTANYL PATCH WASTE MC PRN (12:02)
--- NOTE | 2016-12-08 12:13 | PN ---
Progress Note, Physician - Current Medication List Current Medications: Active Medications Acetaminophen (Tylenol Oral Solution -) 650 mg PO Q6H PRN PRN Reason: FEVER OR PAIN Last Admin: 12/08/16 09:34 Dose: 650 mg Albuterol/Ipratropium (Duoneb -) 1 amp NEB TIDR [facility] Last Admin: 12/08/16 06:45 Dose: 1 amp Amino Acids (Prosource No Carb Liquid Pkt) 30 ml PO BID@0800,1730 [facility] Last Admin: 12/08/16 09:33 Dose: 30 ml Ascorbic Acid (Vitamin C -) 500 mg PO DAILY [facility] Last Admin: 12/08/16 09:34 Dose: 500 mg Bacitracin (Bacitracin -) 1 applic TP DAILY [facility] Last Admin: 12/08/16 09:33 Dose: 1 applic Calcitriol (Rocaltrol Liquid -) 0.5 mcg NGT DAILY [facility] Last Admin: 12/08/16 09:35 Dose: 0.5 mcg Collagenase (Santyl -) 1 applic TP DAILY [facility] Last Admin: 12/08/16 09:35 Dose: 1 applic Fentanyl (Duragesic 25mcg Patch -) 1 patch TD Q72H [facility] Stop: 12/15/16 12:02 Famotidine/Sodium Chloride (Pepcid 20 Mg Premixed Ivpb -) 50 mls @ 100 mls/hr IVPB BID [facility] Last Admin: 12/08/16 09:35 Dose: 100 mls/hr Levetiracetam (Keppra Oral Solution -) 500 mg PEG BID [facility] Last Admin: 12/08/16 09:33 Dose: 500 mg Miscellaneous (Duragesic Patch Waste) 1 each [facility] PRN PRN PRN Reason: PAIN Ondansetron HCl (Zofran Odt -) 4 mg SL Q8H PRN PRN Reason: NAUSEA AND/OR VOMITING Zinc Sulfate (Orazinc -) 220 mg PEG DAILY [facility] Last Admin: 12/08/16 09:34 Dose: 220 mg - Objective Vital Signs: Vital Signs Temperature 102.6 F H 12/08/16 09:16 Pulse Rate 106 H 12/08/16 10:36 Respiratory Rate 15 12/08/16 10:36 Blood Pressure 106/45 12/08/16 09:16 O2 Sat by Pulse Oximetry (%) 100 12/08/16 10:36 Labs: CBC, BMP 12/08/16 05:35 12/06/16 06:00 INR, PTT INR 1.77 (0.82-1.09) H 12/06/16 06:50 Fibrinogen 279.0 mg/dL (238-498) 11/14/16 06:15
--- NOTE | 2016-12-08 12:39 | PN ---
Progress Note (short form) - Note Progress Note: RENAL now on medsurg floor remains trached no opening her eyes Last Vital Signs Temp Pulse Resp BP Pulse Ox 102.6 F H 106 H 15 106/45 100 12/08/16 09:16 12/08/16 10:36 12/08/16 10:36 12/08/16 09:16 12/08/16 10:36 has a trach lungs clear cvs s1s2 rr tachy abd soft ext no edema, LUE avf pulsatile neuro awake has a rectal tube, full of liquid stool CBC, BMP 12/08/16 05:35 12/06/16 06:00 Current Medications Generic Name Dose Route Start Last Admin Trade Name Freq PRN Reason Stop Dose Admin Acetaminophen 650 mg 11/29/16 15:26 12/08/16 09:34 Tylenol Oral Solution - PO 650 mg Q6H PRN Administration FEVER OR PAIN Albuterol/Ipratropium 1 amp 11/29/16 22:00 12/08/16 06:45 Duoneb - NEB 1 amp TIDR [facility] Administration Amino Acids 30 ml 11/29/16 17:30 12/08/16 09:33 Prosource No Carb Liquid Pkt PO 30 ml BID@0800,1730 [facility] Administration Ascorbic Acid 500 mg 11/30/16 10:00 12/08/16 09:34 Vitamin C - PO 500 mg DAILY [facility] Administration Bacitracin 1 applic 11/30/16 10:00 12/08/16 09:33 Bacitracin - TP 1 applic DAILY [facility] Administration Calcitriol 0.5 mcg 11/30/16 10:00 12/08/16 09:35 Rocaltrol Liquid - NGT 0.5 mcg DAILY [facility] Administration Collagenase 1 applic 12/06/16 13:30 12/08/16 09:35 Santyl - TP 1 applic DAILY [facility] Administration Fentanyl 1 patch 12/08/16 12:15 Duragesic 25mcg Patch - TD 12/15/16 12:02 Q72H [facility] Famotidine/Sodium Chloride 50 mls @ 100 mls/hr 12/04/16 10:00 12/08/16 09:35 Pepcid 20 Mg Premixed Ivpb - IVPB 100 mls/hr BID [facility] Administration Piperacillin Sod/Tazobactam 50 mls @ 100 mls/hr 12/08/16 12:15 Sod 2.25 gm/ Dextrose IVPB Q8H-IV [facility] Protocol Levetiracetam 500 mg 11/29/16 22:00 12/08/16 09:33 Keppra Oral Solution - PEG 500 mg BID [facility] Administration Miscellaneous 1 each 12/08/16 12:02 Duragesic Patch Waste [facility] PRN PRN PAIN Ondansetron HCl 4 mg 11/29/16 15:26 Zofran Odt - SL Q8H PRN NAUSEA AND/OR VOMITING Zinc Sulfate 220 mg 11/30/16 10:00 12/08/16 09:34 Orazinc - PEG 220 mg DAILY [facility] Administration Impression 1. ESRD 2. s/p cardiopulmonary arrest 3. acute respiratory failure 4. Pneumonia 5. DVT of right leg 6. S/P Seizure following the arrest 7. Right renal complex cyst > 5cms in diameter 8. Anemia 9. Thrombocytopenia 10. H/O HCV 11. active GI bleed Plan continue phosphate replacement continue calcitriol reattempt hd tomorrow. May not be able to remove any fluid since she has diarrhea repeat labs in am. abx per id ?palliative care MV
[2016-12-08] MEDS: PIPERACILLIN/TAZOB 2.25 GM 50 ML IVPB SCH ×2 (13:26→17:10)
[2016-12-08] MEDS: fentaNYL 25mcg/hr PATCH.TD72 TD SCH (13:27)
--- NOTE | 2016-12-08 13:34 | PN ---
Progress Note, Physician History of Present Illness: High grade temp noted Less responsive + loose stool Breathing non-labored - Current Medication List Current Medications: Active Medications Acetaminophen (Tylenol Oral Solution -) 650 mg PO Q6H PRN PRN Reason: FEVER OR PAIN Last Admin: 12/08/16 09:34 Dose: 650 mg Albuterol/Ipratropium (Duoneb -) 1 amp NEB TIDR [facility] Last Admin: 12/08/16 06:45 Dose: 1 amp Amino Acids (Prosource No Carb Liquid Pkt) 30 ml PO BID@0800,1730 [facility] Last Admin: 12/08/16 09:33 Dose: 30 ml Ascorbic Acid (Vitamin C -) 500 mg PO DAILY [facility] Last Admin: 12/08/16 09:34 Dose: 500 mg Bacitracin (Bacitracin -) 1 applic TP DAILY [facility] Last Admin: 12/08/16 09:33 Dose: 1 applic Calcitriol (Rocaltrol Liquid -) 0.5 mcg NGT DAILY [facility] Last Admin: 12/08/16 09:35 Dose: 0.5 mcg Collagenase (Santyl -) 1 applic TP DAILY [facility] Last Admin: 12/08/16 09:35 Dose: 1 applic Fentanyl (Duragesic 25mcg Patch -) 1 patch TD Q72H [facility] Stop: 12/15/16 12:59 Last Admin: 12/08/16 13:27 Dose: 1 patch Famotidine/Sodium Chloride (Pepcid 20 Mg Premixed Ivpb -) 50 mls @ 100 mls/hr IVPB BID [facility] Last Admin: 12/08/16 09:35 Dose: 100 mls/hr Piperacillin Sod/Tazobactam Sod (Zosyn 2.25gm Ivpb (Pre-Docked)) 50 mls @ 100 mls/hr IVPB Q8H-IV [facility] PRN Reason: Protocol Last Admin: 12/08/16 13:26 Dose: 100 mls/hr Levetiracetam (Keppra Oral Solution -) 500 mg PEG BID [facility] Last Admin: 12/08/16 09:33 Dose: 500 mg Miscellaneous (Duragesic Patch Waste) 1 each [facility] PRN PRN PRN Reason: PAIN Ondansetron HCl (Zofran Odt -) 4 mg SL Q8H PRN PRN Reason: NAUSEA AND/OR VOMITING Zinc Sulfate (Orazinc -) 220 mg PEG DAILY [facility] Last Admin: 12/08/16 09:34 Dose: 220 mg - Objective Vital Signs: Vital Signs Temperature 101.2 F H 12/08/16 12:00 Pulse Rate 106 H 12/08/16 10:36 Respiratory Rate 15 12/08/16 10:36 Blood Pressure 106/45 12/08/16 09:16 O2 Sat by Pulse Oximetry (%) 100 12/08/16 10:36 Constitutional: Yes: Cachectic Cardiovascular: Yes: Regular Rate and Rhythm, S1, S2 Respiratory: Yes: Diminished Gastrointestinal: Yes: Normal Bowel Sounds, Soft, Other (+ surgical wound) Labs: CBC, BMP 12/08/16 05:35 12/06/16 06:00 INR, PTT INR 1.77 (0.82-1.09) H 12/06/16 06:50 Fibrinogen 279.0 mg/dL (238-498) 11/14/16 06:15 Assessment/Plan S/P cardiopulmonary arrest/ respiratory failure Recurrent fever Post op J-tube / laparotomy/ DANNY Leukocytosis - resolved Cirrhosis Reculture Resume empiric antibiotic therapy Prognosis guarded
--- NOTE | 2016-12-08 15:24 | PN ---
Progress Note, Physician History of Present Illness: pulmonary lethargic on vent support,ac mode,-resp distress - Current Medication List Current Medications: Active Medications Acetaminophen (Tylenol Oral Solution -) 650 mg PO Q6H PRN PRN Reason: FEVER OR PAIN Last Admin: 12/08/16 09:34 Dose: 650 mg Albuterol/Ipratropium (Duoneb -) 1 amp NEB TIDR [facility] Last Admin: 12/08/16 14:20 Dose: 1 amp Amino Acids (Prosource No Carb Liquid Pkt) 30 ml PO BID@0800,1730 [facility] Last Admin: 12/08/16 09:33 Dose: 30 ml Ascorbic Acid (Vitamin C -) 500 mg PO DAILY [facility] Last Admin: 12/08/16 09:34 Dose: 500 mg Bacitracin (Bacitracin -) 1 applic TP DAILY [facility] Last Admin: 12/08/16 09:33 Dose: 1 applic Calcitriol (Rocaltrol Liquid -) 0.5 mcg NGT DAILY [facility] Last Admin: 12/08/16 09:35 Dose: 0.5 mcg Collagenase (Santyl -) 1 applic TP DAILY [facility] Last Admin: 12/08/16 09:35 Dose: 1 applic Fentanyl (Duragesic 25mcg Patch -) 1 patch TD Q72H [facility] Stop: 12/15/16 12:59 Last Admin: 12/08/16 13:27 Dose: 1 patch Famotidine/Sodium Chloride (Pepcid 20 Mg Premixed Ivpb -) 50 mls @ 100 mls/hr IVPB BID [facility] Last Admin: 12/08/16 09:35 Dose: 100 mls/hr Piperacillin Sod/Tazobactam Sod (Zosyn 2.25gm Ivpb (Pre-Docked)) 50 mls @ 100 mls/hr IVPB Q8H-IV [facility] PRN Reason: Protocol Last Admin: 12/08/16 13:26 Dose: 100 mls/hr Levetiracetam (Keppra Oral Solution -) 500 mg PEG BID [facility] Last Admin: 12/08/16 09:33 Dose: 500 mg Miscellaneous (Duragesic Patch Waste) 1 each [facility] PRN PRN PRN Reason: PAIN Ondansetron HCl (Zofran Odt -) 4 mg SL Q8H PRN PRN Reason: NAUSEA AND/OR VOMITING Zinc Sulfate (Orazinc -) 220 mg PEG DAILY [facility] Last Admin: 12/08/16 09:34 Dose: 220 mg - Objective Vital Signs: Vital Signs Temperature 98.7 F 12/08/16 13:41 Pulse Rate 112 H 12/08/16 13:41 Respiratory Rate 22 12/08/16 14:18 Blood Pressure 119/49 12/08/16 13:41 O2 Sat by Pulse Oximetry (%) 100 12/08/16 10:36 Constitutional: Yes: Thin, Other (lethargic) Eyes: Yes: WNL HENT: Yes: WNL Neck: Yes: Supple (trach) Cardiovascular: Yes: Regular Rate and Rhythm, S1, S2 Respiratory: Yes: CTA Bilaterally, Rhonchi (scattered anand rhonchi) Gastrointestinal: Yes: Normal Bowel Sounds, Soft Extremities: Yes: WNL Edema: Yes Labs: CBC, BMP 12/08/16 05:35 12/06/16 06:00 INR, PTT INR 1.77 (0.82-1.09) H 12/06/16 06:50 Fibrinogen 279.0 mg/dL (238-498) 11/14/16 06:15 Problem List - Problems (1) Anemia Code(s): D64.9 - ANEMIA, UNSPECIFIED Qualifiers: Qualified Code(s): N18.9 - Chronic kidney disease, unspecified; D63.1 - Anemia in chronic kidney disease (2) Cardiopulmonary arrest Code(s): I46.9 - CARDIAC ARREST, CAUSE UNSPECIFIED (3) DVT (deep venous thrombosis) Code(s): I82.409 - ACUTE EMBOLISM AND THOMBOS UNSP DEEP VN UNSP LOWER EXTREMITY (4) Dysphagia Code(s): R13.10 - DYSPHAGIA, UNSPECIFIED (5) ESRD (end stage renal disease) on dialysis Code(s): N18.6 - END STAGE RENAL DISEASE Z99.2 - DEPENDENCE ON RENAL DIALYSIS (6) Pneumonia Code(s): J18.9 - PNEUMONIA, UNSPECIFIED ORGANISM (7) Respiratory failure Code(s): J96.90 - RESPIRATORY FAILURE, UNSP, UNSP W HYPOXIA OR HYPERCAPNIA (8) Shock Code(s): R57.9 - SHOCK, UNSPECIFIED Assessment/Plan A/P s/p PEA Cardiopulmonary Arrest s/p Hypothermia Protocol s/p Tracheostomy Pneumonia improved s/p Septic Shock Pulmonary HTN Lactic Acidosis resolved ESRD on HD r/o Anoxic Encephalopathy RLE distal DVT GI Bleed Thrombocytopenia - HD per renal - s/p antibiotics - monitor CBC - transfuse as needed - spontaneous breathing trials as tolerated - DVT/GI prophylaxis - continue discussions regarding goals of care DR ANGELA
[2016-12-08] MEDS ORDERED: oxyCODONE HCL 5 MG TABLET PEG PRN (17:07)
[2016-12-08] MEDS: HEPARIN NA (PORCINE) 5,000 UNITS/ML 1ML VIAL SQ SCH (21:15)
[2016-12-09] MEDS: PIPERACILLIN/TAZOB 2.25 GM 50 ML IVPB SCH ×3 (01:16→21:58)
[2016-12-09] MEDS: ALBUTEROL SO4 2.5/IPRATROPIUM 0.5 INH SOL 3 ML VIAL.NEB. NEB SCH ×3 (05:17→22:47)
[2016-12-09] MEDS: AMINO ACIDS/PROTEIN HYDROLYS 30 ML LIQUID.PKT PO SCH ×2 (09:58→16:35)
[2016-12-09] MEDS: HEPARIN NA (PORCINE) 5,000 UNITS/ML 1ML VIAL SQ SCH ×2 (09:58→21:58)
[2016-12-09] MEDS: ASCORBIC ACID 500 MG TABLET (FP) PO SCH (09:59)
[2016-12-09] MEDS: COLLAGENASE CLOSTRIDIUM HIST. 30 GRAMS TUBE TP SCH (10:00)
[2016-12-09] MEDS: levETIRAcetam 500 MG/5 ML ORAL SOLUTION (UNIT-DOSE CUPS) PEG SCH ×2 (10:01→21:58)
[2016-12-09] MEDS: ZINC SULFATE 220 MG CAPSULE (FP) PEG SCH (10:05)
[2016-12-09] MEDS: BACITRACIN 30 GM TUBE TOPICAL OINTMENT TP SCH (10:06)
[2016-12-09] MEDS: FAMOTIDINE 20 MG/50 ML IVPB 50 ML IVPB SCH ×2 (11:17→21:58)
--- NOTE | 2016-12-09 11:19 | PN ---
Progress Note, Physician History of Present Illness: ON VENT - Current Medication List Current Medications: Active Medications Acetaminophen (Tylenol Oral Solution -) 650 mg PO Q6H PRN PRN Reason: FEVER OR PAIN Last Admin: 12/08/16 17:10 Dose: 650 mg Albuterol/Ipratropium (Duoneb -) 1 amp NEB TIDR [facility] Last Admin: 12/09/16 05:17 Dose: 1 amp Amino Acids (Prosource No Carb Liquid Pkt) 30 ml PO BID@0800,1730 [facility] Last Admin: 12/09/16 09:58 Dose: 30 ml Ascorbic Acid (Vitamin C -) 500 mg PO DAILY [facility] Last Admin: 12/09/16 09:59 Dose: 500 mg Bacitracin (Bacitracin -) 1 applic TP DAILY [facility] Last Admin: 12/09/16 10:06 Dose: 1 applic Calcitriol (Rocaltrol Liquid -) 0.5 mcg NGT DAILY [facility] Last Admin: 12/08/16 09:35 Dose: 0.5 mcg Collagenase (Santyl -) 1 applic TP DAILY [facility] Last Admin: 12/08/16 09:35 Dose: 1 applic Fentanyl (Duragesic 25mcg Patch -) 1 patch TD Q72H [facility] Stop: 12/15/16 12:59 Last Admin: 12/08/16 13:27 Dose: 1 patch Heparin Sodium (Porcine) (Heparin -) 5,000 unit SQ BID [facility] Last Admin: 12/09/16 09:58 Dose: 5,000 unit Famotidine/Sodium Chloride (Pepcid 20 Mg Premixed Ivpb -) 50 mls @ 100 mls/hr IVPB BID [facility] Last Admin: 12/09/16 11:17 Dose: 100 mls/hr Piperacillin Sod/Tazobactam Sod (Zosyn 2.25gm Ivpb (Pre-Docked)) 50 mls @ 100 mls/hr IVPB Q8H-IV [facility] PRN Reason: Protocol Last Admin: 12/09/16 10:05 Dose: 100 mls/hr Levetiracetam (Keppra Oral Solution -) 500 mg PEG BID [facility] Last Admin: 12/09/16 10:01 Dose: 500 mg Miscellaneous (Duragesic Patch Waste) 1 each [facility] PRN PRN PRN Reason: PAIN Ondansetron HCl (Zofran Odt -) 4 mg SL Q8H PRN PRN Reason: NAUSEA AND/OR VOMITING Oxycodone HCl (Roxicodone -) 5 mg PEG Q6H PRN PRN Reason: PAIN Zinc Sulfate (Orazinc -) 220 mg PEG DAILY [facility] Last Admin: 12/09/16 10:05 Dose: 220 mg - Objective Vital Signs: Vital Signs Temperature 98.9 F 12/09/16 07:00 Pulse Rate 98 H 12/09/16 07:00 Respiratory Rate 18 12/09/16 07:00 Blood Pressure 118/50 12/09/16 07:00 O2 Sat by Pulse Oximetry (%) 100 12/08/16 10:36 Cardiovascular: Yes: S1, S2 Respiratory: Yes: Mechanically Ventilated Gastrointestinal: Yes: Normal Bowel Sounds, Soft Labs: CBC, BMP 12/08/16 05:35 12/06/16 06:00 INR, PTT INR 1.77 (0.82-1.09) H 12/06/16 06:50 Fibrinogen 279.0 mg/dL (238-498) 11/14/16 06:15 Problem List - Problems (1) ESRD (end stage renal disease) on dialysis Assessment/Plan: RENAL ON BOARD Code(s): N18.6 - END STAGE RENAL DISEASE Z99.2 - DEPENDENCE ON RENAL DIALYSIS (2) Respiratory failure Assessment/Plan: VENT SETTING PER PULM Code(s): J96.90 - RESPIRATORY FAILURE, UNSP, UNSP W HYPOXIA OR HYPERCAPNIA (3) Fever Assessment/Plan: NOTED ID ON CASE Code(s): R50.9 - FEVER, UNSPECIFIED (4) Dysphagia Assessment/Plan: PEG Code(s): R13.10 - DYSPHAGIA, UNSPECIFIED
[2016-12-09] MEDS: CALCITRIOL 1 MCG/ML BOT NGT SCH (13:00)
--- NOTE | 2016-12-09 13:10 | PN ---
Progress Note, Physician History of Present Illness: Renal f/u Pt had fevers yesterday but is afebrile today Has been difficult to dialyze because of relatively low BP last treatment K was low so to use a K 3 bath Pt is poorly responsive at the bedside and states he will be talking to Dr Lr regarding the goals of care on Sunday - Current Medication List Current Medications: Active Medications Acetaminophen (Tylenol Oral Solution -) 650 mg PO Q6H PRN PRN Reason: FEVER OR PAIN Last Admin: 12/08/16 17:10 Dose: 650 mg Albuterol/Ipratropium (Duoneb -) 1 amp NEB TIDR [facility] Last Admin: 12/09/16 05:17 Dose: 1 amp Amino Acids (Prosource No Carb Liquid Pkt) 30 ml PO BID@0800,1730 [facility] Last Admin: 12/09/16 09:58 Dose: 30 ml Ascorbic Acid (Vitamin C -) 500 mg PO DAILY [facility] Last Admin: 12/09/16 09:59 Dose: 500 mg Bacitracin (Bacitracin -) 1 applic TP DAILY [facility] Last Admin: 12/09/16 10:06 Dose: 1 applic Calcitriol (Rocaltrol Liquid -) 0.5 mcg NGT DAILY [facility] Last Admin: 12/08/16 09:35 Dose: 0.5 mcg Collagenase (Santyl -) 1 applic TP DAILY [facility] Last Admin: 12/08/16 09:35 Dose: 1 applic Fentanyl (Duragesic 25mcg Patch -) 1 patch TD Q72H [facility] Stop: 12/15/16 12:59 Last Admin: 12/08/16 13:27 Dose: 1 patch Heparin Sodium (Porcine) (Heparin -) 5,000 unit SQ BID [facility] Last Admin: 12/09/16 09:58 Dose: 5,000 unit Famotidine/Sodium Chloride (Pepcid 20 Mg Premixed Ivpb -) 50 mls @ 100 mls/hr IVPB BID [facility] Last Admin: 12/09/16 11:17 Dose: 100 mls/hr Piperacillin Sod/Tazobactam Sod (Zosyn 2.25gm Ivpb (Pre-Docked)) 50 mls @ 100 mls/hr IVPB Q8H-IV [facility] PRN Reason: Protocol Last Admin: 12/09/16 10:05 Dose: 100 mls/hr Levetiracetam (Keppra Oral Solution -) 500 mg PEG BID [facility] Last Admin: 12/09/16 10:01 Dose: 500 mg Miscellaneous (Duragesic Patch Waste) 1 each [facility] PRN PRN PRN Reason: PAIN Ondansetron HCl (Zofran Odt -) 4 mg SL Q8H PRN PRN Reason: NAUSEA AND/OR VOMITING Oxycodone HCl (Roxicodone -) 5 mg PEG Q6H PRN PRN Reason: PAIN Zinc Sulfate (Orazinc -) 220 mg PEG DAILY [facility] Last Admin: 12/09/16 10:05 Dose: 220 mg - Objective Vital Signs: Vital Signs Temperature 98.2 F 12/09/16 09:07 Pulse Rate 102 H 12/09/16 09:07 Respiratory Rate 20 12/09/16 10:45 Blood Pressure 103/57 12/09/16 09:07 O2 Sat by Pulse Oximetry (%) 100 12/08/16 10:36 Constitutional: Yes: No Distress Neck: Yes: Other (L Perm Cath) Cardiovascular: Yes: S1, S2 Respiratory: Yes: Other (Decreased BS at bases) Gastrointestinal: Yes: Soft. No: Distention Edema: LLE: 2+, RLE: 1+ Labs: CBC, BMP 12/08/16 05:35 12/06/16 06:00 INR, PTT INR 1.77 (0.82-1.09) H 12/06/16 06:50 Fibrinogen 279.0 mg/dL (238-498) 11/14/16 06:15 Assessment/Plan Impression 1. ESRD 2. Hypokalemia 3. Acute respiratory failure with tracheostomy and on ventilator 4. Pneumonia 5. DVT 6. S/P Seizure 7. Right renal complex cyst > 5cms in diameter 8. Anemia with GIB in the past 9. H/O HCV 10. S/P Cardio Respiratory Arrest Plan Attempt HD as tolerated IV albumin 12.5 gms X2 as needed on HD Pre CBC , BMP and Type and screen on HD prison goals for pt to be determined - wants to wait till Sunday to make a decision Dr Mackay
[2016-12-09] MEDS: ALBUMIN HUMAN 25% 100 ML VIAL IVPB SCH ×4 (13:20→14:52)
--- NOTE | 2016-12-09 13:54 | PN ---
Progress Note (short form) - Note Progress Note: PULMONARY Vented on volume assist control. Febrile yesterday. More lethargic today. Last Vital Signs Temp Pulse Resp BP Pulse Ox 98.2 F 102 H 20 103/57 100 12/09/16 09:07 12/09/16 09:07 12/09/16 10:45 12/09/16 09:07 12/08/16 10:36 Gen: vented, lethargic Heart: RRR Lung: decreased breath sounds at the bases Abd: soft, nontender Ext: no edema CBC, BMP 12/08/16 05:35 12/06/16 06:00 Active Medications Acetaminophen (Tylenol Oral Solution -) 650 mg PO Q6H PRN PRN Reason: FEVER OR PAIN Last Admin: 12/08/16 17:10 Dose: 650 mg Albumin Human (Albumin Human 25% -) 12.5 gm IVPB Q30M [facility] Stop: 12/09/16 15:01 Albuterol/Ipratropium (Duoneb -) 1 amp NEB TIDR [facility] Last Admin: 12/09/16 05:17 Dose: 1 amp Amino Acids (Prosource No Carb Liquid Pkt) 30 ml PO BID@0800,1730 [facility] Last Admin: 12/09/16 09:58 Dose: 30 ml Ascorbic Acid (Vitamin C -) 500 mg PO DAILY [facility] Last Admin: 12/09/16 09:59 Dose: 500 mg Bacitracin (Bacitracin -) 1 applic TP DAILY [facility] Last Admin: 12/09/16 10:06 Dose: 1 applic Calcitriol (Rocaltrol Liquid -) 0.5 mcg NGT DAILY [facility] Last Admin: 12/08/16 09:35 Dose: 0.5 mcg Collagenase (Santyl -) 1 applic TP DAILY [facility] Last Admin: 12/08/16 09:35 Dose: 1 applic Fentanyl (Duragesic 25mcg Patch -) 1 patch TD Q72H [facility] Stop: 12/15/16 12:59 Last Admin: 12/08/16 13:27 Dose: 1 patch Heparin Sodium (Porcine) (Heparin -) 5,000 unit SQ BID [facility] Last Admin: 12/09/16 09:58 Dose: 5,000 unit Famotidine/Sodium Chloride (Pepcid 20 Mg Premixed Ivpb -) 50 mls @ 100 mls/hr IVPB BID [facility] Last Admin: 12/09/16 11:17 Dose: 100 mls/hr Piperacillin Sod/Tazobactam Sod (Zosyn 2.25gm Ivpb (Pre-Docked)) 50 mls @ 100 mls/hr IVPB Q8H-IV [facility] PRN Reason: Protocol Last Admin: 12/09/16 10:05 Dose: 100 mls/hr Levetiracetam (Keppra Oral Solution -) 500 mg PEG BID [facility] Last Admin: 12/09/16 10:01 Dose: 500 mg Miscellaneous (Duragesic Patch Waste) 1 each [facility] PRN PRN PRN Reason: PAIN Ondansetron HCl (Zofran Odt -) 4 mg SL Q8H PRN PRN Reason: NAUSEA AND/OR VOMITING Oxycodone HCl (Roxicodone -) 5 mg PEG Q6H PRN PRN Reason: PAIN Zinc Sulfate (Orazinc -) 220 mg PEG DAILY [facility] Last Admin: 12/09/16 10:05 Dose: 220 mg A/P s/p PEA Cardiopulmonary Arrest s/p Hypothermia Protocol s/p Tracheostomy Pneumonia improved s/p Septic Shock Pulmonary HTN Lactic Acidosis resolved ESRD on HD r/o Anoxic Encephalopathy RLE distal DVT GI Bleed Thrombocytopenia - HD per renal - continue antibiotics - f/u cultures - monitor CBC - transfuse as needed - spontaneous breathing trials as tolerated - DVT/GI prophylaxis - continue discussions regarding goals of care - poor overall prognosis for meaningful recovery
[2016-12-09] MEDS ORDERED: LEVOFLOXACIN 250 MG IVPB 50 ML IVPB ONE (14:00)
--- NOTE | 2016-12-09 14:00 | PN ---
Progress Note, Physician History of Present Illness: Doing poorly Poorly responsive Hypotensive on HD resulting in short treatment time Febrile 102 Blood c/s prelim (-) - Current Medication List Current Medications: Active Medications Acetaminophen (Tylenol Oral Solution -) 650 mg PO Q6H PRN PRN Reason: FEVER OR PAIN Last Admin: 12/08/16 17:10 Dose: 650 mg Albumin Human (Albumin Human 25% -) 12.5 gm IVPB Q30M [facility] Stop: 12/09/16 15:01 Albuterol/Ipratropium (Duoneb -) 1 amp NEB TIDR [facility] Last Admin: 12/09/16 05:17 Dose: 1 amp Amino Acids (Prosource No Carb Liquid Pkt) 30 ml PO BID@0800,1730 [facility] Last Admin: 12/09/16 09:58 Dose: 30 ml Ascorbic Acid (Vitamin C -) 500 mg PO DAILY [facility] Last Admin: 12/09/16 09:59 Dose: 500 mg Bacitracin (Bacitracin -) 1 applic TP DAILY [facility] Last Admin: 12/09/16 10:06 Dose: 1 applic Calcitriol (Rocaltrol Liquid -) 0.5 mcg NGT DAILY [facility] Last Admin: 12/08/16 09:35 Dose: 0.5 mcg Collagenase (Santyl -) 1 applic TP DAILY [facility] Last Admin: 12/08/16 09:35 Dose: 1 applic Fentanyl (Duragesic 25mcg Patch -) 1 patch TD Q72H [facility] Stop: 12/15/16 12:59 Last Admin: 12/08/16 13:27 Dose: 1 patch Heparin Sodium (Porcine) (Heparin -) 5,000 unit SQ BID [facility] Last Admin: 12/09/16 09:58 Dose: 5,000 unit Famotidine/Sodium Chloride (Pepcid 20 Mg Premixed Ivpb -) 50 mls @ 100 mls/hr IVPB BID [facility] Last Admin: 12/09/16 11:17 Dose: 100 mls/hr Piperacillin Sod/Tazobactam Sod (Zosyn 2.25gm Ivpb (Pre-Docked)) 50 mls @ 100 mls/hr IVPB Q8H-IV [facility] PRN Reason: Protocol Last Admin: 12/09/16 10:05 Dose: 100 mls/hr Levetiracetam (Keppra Oral Solution -) 500 mg PEG BID [facility] Last Admin: 12/09/16 10:01 Dose: 500 mg Miscellaneous (Duragesic Patch Waste) 1 each [facility] PRN PRN PRN Reason: PAIN Ondansetron HCl (Zofran Odt -) 4 mg SL Q8H PRN PRN Reason: NAUSEA AND/OR VOMITING Oxycodone HCl (Roxicodone -) 5 mg PEG Q6H PRN PRN Reason: PAIN Zinc Sulfate (Orazinc -) 220 mg PEG DAILY [facility] Last Admin: 12/09/16 10:05 Dose: 220 mg - Objective Vital Signs: Vital Signs Temperature 98.2 F 12/09/16 09:07 Pulse Rate 102 H 12/09/16 09:07 Respiratory Rate 20 12/09/16 10:45 Blood Pressure 103/57 12/09/16 09:07 O2 Sat by Pulse Oximetry (%) 100 12/08/16 10:36 Constitutional: Yes: No Distress, Cachectic Cardiovascular: Yes: Regular Rate and Rhythm, S1, S2 Respiratory: Yes: Diminished Gastrointestinal: Yes: Normal Bowel Sounds, Soft. No: Tenderness Labs: CBC, BMP 12/08/16 05:35 12/06/16 06:00 INR, PTT INR 1.77 (0.82-1.09) H 12/06/16 06:50 Fibrinogen 279.0 mg/dL (238-498) 11/14/16 06:15 Assessment/Plan S/P cardiopulmonary arrest/ respiratory failure Recurrent fever Post op J-tube / laparotomy/ DANNY Leukocytosis Cirrhosis Repeat c/s pending Continue zosyn + stat dose levaquin Prognosis guarded
[2016-12-09 15:08] LABS: BASOPHIL 0.5 % (0-2.0); EOSINOPHIL 4.2 % (0-4.5); MCH 32.9 pg (25.7-33.7); MCHC 32.5 g/dl (32.0-36.0); MEAN CELL VOLUME 101.3 fl (80-96); MEAN PLT VOLUME 12.7 fl (7.5-11.1); NEUTROPHILS 76.6 % (42.8-82.8); PLATELET COUNT 55 K/MM3 (134-434); RDW 25.8 % (11.6-15.6); WHITE BLOOD COUNT 8.8 K/mm3 (4.0-10.0)
[2016-12-09 15:37] LABS: CALCIUM 8.6 mg/dL (8.5-10.1); CREATININE 3.9 mg/dL (0.55-1.02)
[2016-12-09 16:02] LABS: ANISOCYTOSIS 3+; HYPOCHROMIA 2+; MICROCYTOSIS 1+; PLATELET COMMENT2 NO CLOTTING DETECTED; PLATELET ESTIMATE DECREASED (NORMAL); POIKILOCYTOSIS 2+; POLYCHROMASIA 1+; SMUDGE CELLS FEW
[2016-12-09] MEDS ORDERED: POTASSIUM CHLORIDE 20 MEQ PREMIX IVPB 100 ML IVPB ONE (16:06)
[2016-12-09] MEDS: KCL 10 MEQ IVPB 100 ML IVPB SCH ×2 (16:31→18:10)
[2016-12-10] MEDS: PIPERACILLIN/TAZOB 2.25 GM 50 ML IVPB SCH ×3 (01:35→17:32)
[2016-12-10] MEDS: ACETAMINOPHEN 650 MG/20.3 ML ORAL SOLUTION (CUPS) PO PRN ×3 (01:35→23:52)
[2016-12-10] MEDS: ALBUTEROL SO4 2.5/IPRATROPIUM 0.5 INH SOL 3 ML VIAL.NEB. NEB SCH ×3 (05:47→22:00)
--- NOTE | 2016-12-10 08:52 | PN ---
Progress Note, Physician - Current Medication List Current Medications: Active Medications Acetaminophen (Tylenol Oral Solution -) 650 mg PO Q6H PRN PRN Reason: FEVER OR PAIN Last Admin: 12/10/16 01:35 Dose: 650 mg Albuterol/Ipratropium (Duoneb -) 1 amp NEB TIDR [facility] Last Admin: 12/10/16 05:47 Dose: 1 amp Amino Acids (Prosource No Carb Liquid Pkt) 30 ml PO BID@0800,1730 [facility] Last Admin: 12/09/16 16:35 Dose: 30 ml Ascorbic Acid (Vitamin C -) 500 mg PO DAILY [facility] Last Admin: 12/09/16 09:59 Dose: 500 mg Bacitracin (Bacitracin -) 1 applic TP DAILY [facility] Last Admin: 12/09/16 10:06 Dose: 1 applic Calcitriol (Rocaltrol Liquid -) 0.5 mcg NGT DAILY [facility] Last Admin: 12/09/16 13:00 Dose: Not Given Collagenase (Santyl -) 1 applic TP DAILY [facility] Last Admin: 12/09/16 10:00 Dose: Not Given Fentanyl (Duragesic 25mcg Patch -) 1 patch TD Q72H [facility] Stop: 12/15/16 12:59 Last Admin: 12/08/16 13:27 Dose: 1 patch Heparin Sodium (Porcine) (Heparin -) 5,000 unit SQ BID [facility] Last Admin: 12/09/16 21:58 Dose: 5,000 unit Famotidine/Sodium Chloride (Pepcid 20 Mg Premixed Ivpb -) 50 mls @ 100 mls/hr IVPB BID [facility] Last Admin: 12/09/16 21:58 Dose: 100 mls/hr Piperacillin Sod/Tazobactam Sod (Zosyn 2.25gm Ivpb (Pre-Docked)) 50 mls @ 100 mls/hr IVPB Q8H-IV [facility] PRN Reason: Protocol Last Admin: 12/10/16 01:35 Dose: 100 mls/hr Levetiracetam (Keppra Oral Solution -) 500 mg PEG BID [facility] Last Admin: 12/09/16 21:58 Dose: 500 mg Miscellaneous (Duragesic Patch Waste) 1 each [facility] PRN PRN PRN Reason: PAIN Ondansetron HCl (Zofran Odt -) 4 mg SL Q8H PRN PRN Reason: NAUSEA AND/OR VOMITING Oxycodone HCl (Roxicodone -) 5 mg PEG Q6H PRN PRN Reason: PAIN Zinc Sulfate (Orazinc -) 220 mg PEG DAILY [facility] Last Admin: 12/09/16 10:05 Dose: 220 mg - Objective Vital Signs: Vital Signs Temperature 98.9 F 12/10/16 05:28 Pulse Rate 108 H 12/10/16 05:28 Respiratory Rate 20 12/10/16 06:25 Blood Pressure 110/57 12/10/16 05:28 O2 Sat by Pulse Oximetry (%) 96 12/09/16 09:00 Cardiovascular: Yes: S1, S2 Respiratory: Yes: Mechanically Ventilated Gastrointestinal: Yes: Soft, Hematemesis Labs: CBC, BMP 12/09/16 13:24 12/09/16 13:24 INR, PTT INR 1.77 (0.82-1.09) H 12/06/16 06:50 Fibrinogen 279.0 mg/dL (238-498) 11/14/16 06:15 Problem List - Problems (1) ESRD (end stage renal disease) on dialysis Assessment/Plan: RENAL ON BOARD Selected Entries 12/09/16 12/09/16 12/10/16 13:30 13:40 05:28 Blood Pressure 68/38 104/53 110/57 DEVELOPED HYPOTENSION YESTERDAY--DIALYSIS STOPPED PT NOTED WITH HGB OF RECEIVING BLOOD---BP IMPROVED Abnormal Lab Results 12/09/16 12/09/16 12/09/16 13:24 13:24 13:24 RBC 2.14 L Hgb 7.0 L D Hct 21.6 L MCV 101.3 H RDW 25.8 H Plt Count 55 L MPV 12.7 H Sodium 155 H Potassium 3.2 L Chloride 123 H BUN 65 H D Creatinine 3.9 H D Antibody Screen Positive H Direct Antiglob Test Positive H Crossmatch See Detail CORRECTION OF ELECTROLYTES PER RENAL Code(s): N18.6 - END STAGE RENAL DISEASE Z99.2 - DEPENDENCE ON RENAL DIALYSIS (2) Respiratory failure Assessment/Plan: VENT SETTING PER PULM Code(s): J96.90 - RESPIRATORY FAILURE, UNSP, UNSP W HYPOXIA OR HYPERCAPNIA (3) Fever Assessment/Plan: NOTED ID ON CASE ON ZOSYN/LEVAQUIN Code(s): R50.9 - FEVER, UNSPECIFIED (4) Dysphagia Assessment/Plan: PEG Code(s): R13.10 - DYSPHAGIA, UNSPECIFIED
[2016-12-10] MEDS: AMINO ACIDS/PROTEIN HYDROLYS 30 ML LIQUID.PKT PO SCH ×2 (09:00→17:32)
[2016-12-10] MEDS: ASCORBIC ACID 500 MG TABLET (FP) PO SCH (10:00)
[2016-12-10] MEDS: HEPARIN NA (PORCINE) 5,000 UNITS/ML 1ML VIAL SQ SCH ×2 (10:00→23:52)
[2016-12-10] MEDS: levETIRAcetam 500 MG/5 ML ORAL SOLUTION (UNIT-DOSE CUPS) PEG SCH ×2 (10:00→23:52)
[2016-12-10] MEDS: FAMOTIDINE 20 MG/50 ML IVPB 50 ML IVPB SCH ×2 (10:01→23:53)
[2016-12-10] MEDS: BACITRACIN 30 GM TUBE TOPICAL OINTMENT TP SCH (10:01)
[2016-12-10] MEDS: ZINC SULFATE 220 MG CAPSULE (FP) PEG SCH (10:02)
[2016-12-10 10:05] LABS: BASOPHIL 0.5 % (0-2.0); EOSINOPHIL 4.6 % (0-4.5); MCH 32.8 pg (25.7-33.7); MCHC 33.2 g/dl (32.0-36.0); MEAN CELL VOLUME 98.8 fl (80-96); MEAN PLT VOLUME 11.6 fl (7.5-11.1); PLATELET COUNT 57 K/MM3 (134-434); RDW 21.8 % (11.6-15.6); WHITE BLOOD COUNT 11.2 K/mm3 (4.0-10.0)
[2016-12-10] MEDS: COLLAGENASE CLOSTRIDIUM HIST. 30 GRAMS TUBE TP SCH (10:16)
[2016-12-10 10:51] LABS: CALCIUM 8.8 mg/dL (8.5-10.1); CREATININE 4.1 mg/dL (0.55-1.02)
[2016-12-10] MEDS: CALCITRIOL 1 MCG/ML BOT NGT SCH ×2 (12:14→15:51)
--- NOTE | 2016-12-10 12:28 | PN ---
Progress Note (short form) - Note Progress Note: PULMONARY Vented on volume assist control. Low grade temps overnight. Last Vital Signs Temp Pulse Resp BP Pulse Ox 98.5 F 100 H 16 116/58 96 12/10/16 09:00 12/10/16 09:00 12/10/16 11:00 12/10/16 09:00 12/09/16 09:00 Gen: vented, lethargic Heart: RRR Lung: decreased breath sounds at the bases Abd: soft, nontender Ext: no edema CBC, BMP 12/10/16 09:52 12/10/16 09:52 Active Medications Acetaminophen (Tylenol Oral Solution -) 650 mg PO Q6H PRN PRN Reason: FEVER OR PAIN Last Admin: 12/10/16 01:35 Dose: 650 mg Albuterol/Ipratropium (Duoneb -) 1 amp NEB TIDR [facility] Last Admin: 12/10/16 05:47 Dose: 1 amp Amino Acids (Prosource No Carb Liquid Pkt) 30 ml PO BID@0800,1730 [facility] Last Admin: 12/10/16 09:00 Dose: 30 ml Ascorbic Acid (Vitamin C -) 500 mg PO DAILY [facility] Last Admin: 12/10/16 10:00 Dose: 500 mg Bacitracin (Bacitracin -) 1 applic TP DAILY [facility] Last Admin: 12/10/16 10:01 Dose: 1 applic Calcitriol (Rocaltrol Liquid -) 0.5 mcg NGT DAILY [facility] Last Admin: 12/10/16 12:14 Dose: Not Given Collagenase (Santyl -) 1 applic TP DAILY [facility] Last Admin: 12/10/16 10:16 Dose: Not Given Fentanyl (Duragesic 25mcg Patch -) 1 patch TD Q72H [facility] Stop: 12/15/16 12:59 Last Admin: 12/08/16 13:27 Dose: 1 patch Heparin Sodium (Porcine) (Heparin -) 5,000 unit SQ BID [facility] Last Admin: 12/10/16 10:00 Dose: 5,000 unit Famotidine/Sodium Chloride (Pepcid 20 Mg Premixed Ivpb -) 50 mls @ 100 mls/hr IVPB BID [facility] Last Admin: 12/10/16 10:01 Dose: 100 mls/hr Piperacillin Sod/Tazobactam Sod (Zosyn 2.25gm Ivpb (Pre-Docked)) 50 mls @ 100 mls/hr IVPB Q8H-IV [facility] PRN Reason: Protocol Last Admin: 12/10/16 10:53 Dose: 100 mls/hr Levetiracetam (Keppra Oral Solution -) 500 mg PEG BID [facility] Last Admin: 12/10/16 10:00 Dose: 500 mg Miscellaneous (Duragesic Patch Waste) 1 each [facility] PRN PRN PRN Reason: PAIN Ondansetron HCl (Zofran Odt -) 4 mg SL Q8H PRN PRN Reason: NAUSEA AND/OR VOMITING Oxycodone HCl (Roxicodone -) 5 mg PEG Q6H PRN PRN Reason: PAIN Zinc Sulfate (Orazinc -) 220 mg PEG DAILY [facility] Last Admin: 12/10/16 10:02 Dose: 220 mg A/P s/p PEA Cardiopulmonary Arrest s/p Hypothermia Protocol s/p Tracheostomy Pneumonia improved s/p Septic Shock Pulmonary HTN Lactic Acidosis resolved ESRD on HD r/o Anoxic Encephalopathy RLE distal DVT GI Bleed Thrombocytopenia - HD per renal - continue antibiotics - f/u cultures - monitor CBC - transfuse as needed - spontaneous breathing trials as tolerated - DVT/GI prophylaxis - continue discussions regarding goals of care - poor overall prognosis for meaningful recovery, recommend palliative care
--- NOTE | 2016-12-10 12:34 | PN ---
Progress Note, Physician History of Present Illness: Renal f/u Pt received about 1/2 an hour of HD since it had to be discontinued because of hypotension Pt is poorly responsive She was tranfused 2 units of PRBCs yesterday and was given IV K - Current Medication List Current Medications: Active Medications Acetaminophen (Tylenol Oral Solution -) 650 mg PO Q6H PRN PRN Reason: FEVER OR PAIN Last Admin: 12/10/16 01:35 Dose: 650 mg Albuterol/Ipratropium (Duoneb -) 1 amp NEB TIDR [facility] Last Admin: 12/10/16 05:47 Dose: 1 amp Amino Acids (Prosource No Carb Liquid Pkt) 30 ml PO BID@0800,1730 [facility] Last Admin: 12/10/16 09:00 Dose: 30 ml Ascorbic Acid (Vitamin C -) 500 mg PO DAILY [facility] Last Admin: 12/10/16 10:00 Dose: 500 mg Bacitracin (Bacitracin -) 1 applic TP DAILY [facility] Last Admin: 12/10/16 10:01 Dose: 1 applic Calcitriol (Rocaltrol Liquid -) 0.5 mcg NGT DAILY [facility] Last Admin: 12/10/16 12:14 Dose: Not Given Collagenase (Santyl -) 1 applic TP DAILY [facility] Last Admin: 12/10/16 10:16 Dose: Not Given Fentanyl (Duragesic 25mcg Patch -) 1 patch TD Q72H [facility] Stop: 12/15/16 12:59 Last Admin: 12/08/16 13:27 Dose: 1 patch Heparin Sodium (Porcine) (Heparin -) 5,000 unit SQ BID [facility] Last Admin: 12/10/16 10:00 Dose: 5,000 unit Famotidine/Sodium Chloride (Pepcid 20 Mg Premixed Ivpb -) 50 mls @ 100 mls/hr IVPB BID [facility] Last Admin: 12/10/16 10:01 Dose: 100 mls/hr Piperacillin Sod/Tazobactam Sod (Zosyn 2.25gm Ivpb (Pre-Docked)) 50 mls @ 100 mls/hr IVPB Q8H-IV [facility] PRN Reason: Protocol Last Admin: 12/10/16 10:53 Dose: 100 mls/hr Levetiracetam (Keppra Oral Solution -) 500 mg PEG BID [facility] Last Admin: 12/10/16 10:00 Dose: 500 mg Miscellaneous (Duragesic Patch Waste) 1 each [facility] PRN PRN PRN Reason: PAIN Ondansetron HCl (Zofran Odt -) 4 mg SL Q8H PRN PRN Reason: NAUSEA AND/OR VOMITING Oxycodone HCl (Roxicodone -) 5 mg PEG Q6H PRN PRN Reason: PAIN Zinc Sulfate (Orazinc -) 220 mg PEG DAILY [facility] Last Admin: 12/10/16 10:02 Dose: 220 mg - Objective Vital Signs: Vital Signs Temperature 98.5 F 12/10/16 09:00 Pulse Rate 100 H 12/10/16 09:00 Respiratory Rate 16 12/10/16 11:00 Blood Pressure 116/58 12/10/16 09:00 O2 Sat by Pulse Oximetry (%) 96 12/09/16 09:00 Constitutional: Yes: No Distress Cardiovascular: Yes: S1, S2 Respiratory: Yes: Diminished, Other (Equal air entry B/L) Gastrointestinal: Yes: Soft. No: Distention Edema: LUE: 1+, RUE: 1+, LLE: Trace, RLE: Trace Neurological: Yes: Other (Poorly responsive) Labs: CBC, BMP 12/10/16 09:52 12/10/16 09:52 INR, PTT INR 1.77 (0.82-1.09) H 12/06/16 06:50 Fibrinogen 279.0 mg/dL (238-498) 11/14/16 06:15 Assessment/Plan Impression 1. ESRD 2. Hypernatremia and S/P Hypokalemia 3. Acute respiratory failure with tracheostomy and on ventilator 4. Pneumonia 5. DVT 6. S/P Seizure 7. Right renal complex cyst > 5cms in diameter 8. Anemia with GIB in the past 9. H/O HCV 10. 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
[2016-12-10] MEDS: DEXTROSE 5%-WATER - 1,000 ML IV SCH (13:49)
[2016-12-11] MEDS: PIPERACILLIN/TAZOB 2.25 GM 50 ML IVPB SCH ×3 (01:47→17:33)
[2016-12-11] MEDS: ALBUTEROL SO4 2.5/IPRATROPIUM 0.5 INH SOL 3 ML VIAL.NEB. NEB SCH ×3 (06:00→22:34)
[2016-12-11 08:19] LABS: BASOPHIL 0.5 % (0-2.0); EOSINOPHIL 6.3 % (0-4.5); MCH 32.8 pg (25.7-33.7); MCHC 33.2 g/dl (32.0-36.0); MEAN CELL VOLUME 98.9 fl (80-96); MEAN PLT VOLUME 11.8 fl (7.5-11.1); NEUTROPHILS 71.7 % (42.8-82.8); PLATELET COUNT 55 K/MM3 (134-434); RDW 21.4 % (11.6-15.6); WHITE BLOOD COUNT 10.2 K/mm3 (4.0-10.0)
[2016-12-11 08:39] LABS: CALCIUM 8.4 mg/dL (8.5-10.1); CREATININE 4.4 mg/dL (0.55-1.02)
--- NOTE | 2016-12-11 08:58 | PN ---
Progress Note, Physician Chief Complaint: RESISTANT TO EXAM - Current Medication List Current Medications: Active Medications Acetaminophen (Tylenol Oral Solution -) 650 mg PO Q6H PRN PRN Reason: FEVER OR PAIN Last Admin: 12/10/16 23:52 Dose: 650 mg Albuterol/Ipratropium (Duoneb -) 1 amp NEB TIDR [facility] Last Admin: 12/11/16 06:00 Dose: 1 amp Amino Acids (Prosource No Carb Liquid Pkt) 30 ml PO BID@0800,1730 [facility] Last Admin: 12/10/16 17:32 Dose: 30 ml Ascorbic Acid (Vitamin C -) 500 mg PO DAILY [facility] Last Admin: 12/10/16 10:00 Dose: 500 mg Bacitracin (Bacitracin -) 1 applic TP DAILY [facility] Last Admin: 12/10/16 10:01 Dose: 1 applic Calcitriol (Rocaltrol Liquid -) 0.5 mcg NGT DAILY [facility] Last Admin: 12/10/16 15:51 Dose: 0.5 mcg Collagenase (Santyl -) 1 applic TP DAILY [facility] Last Admin: 12/10/16 10:16 Dose: Not Given Fentanyl (Duragesic 25mcg Patch -) 1 patch TD Q72H [facility] Stop: 12/15/16 12:59 Last Admin: 12/08/16 13:27 Dose: 1 patch Heparin Sodium (Porcine) (Heparin -) 5,000 unit SQ BID [facility] Last Admin: 12/10/16 23:52 Dose: 5,000 unit Famotidine/Sodium Chloride (Pepcid 20 Mg Premixed Ivpb -) 50 mls @ 100 mls/hr IVPB BID [facility] Last Admin: 12/10/16 23:53 Dose: 100 mls/hr Piperacillin Sod/Tazobactam Sod (Zosyn 2.25gm Ivpb (Pre-Docked)) 50 mls @ 100 mls/hr IVPB Q8H-IV [facility] PRN Reason: Protocol Last Admin: 12/11/16 01:47 Dose: 100 mls/hr Dextrose (D5w -) 1,000 mls @ 75 mls/hr IV ASDIR [facility] Last Admin: 12/10/16 13:49 Dose: 75 mls/hr Levetiracetam (Keppra Oral Solution -) 500 mg PEG BID [facility] Last Admin: 12/10/16 23:52 Dose: 500 mg Miscellaneous (Duragesic Patch Waste) 1 each [facility] PRN PRN PRN Reason: PAIN Ondansetron HCl (Zofran Odt -) 4 mg SL Q8H PRN PRN Reason: NAUSEA AND/OR VOMITING Oxycodone HCl (Roxicodone -) 5 mg PEG Q6H PRN PRN Reason: PAIN Last Admin: 12/11/16 03:30 Dose: 5 mg Zinc Sulfate (Orazinc -) 220 mg PEG DAILY [facility] Last Admin: 12/10/16 10:02 Dose: 220 mg - Objective Vital Signs: Vital Signs Temperature 98.0 F 12/11/16 05:48 Pulse Rate 96 H 12/11/16 05:48 Respiratory Rate 22 12/11/16 06:00 Blood Pressure 98/49 12/11/16 05:48 O2 Sat by Pulse Oximetry (%) 100 12/10/16 22:00 Cardiovascular: Yes: WNL Respiratory: Yes: WNL Gastrointestinal: Yes: WNL Labs: CBC, BMP 12/11/16 06:30 12/11/16 06:40 INR, PTT INR 1.77 (0.82-1.09) H 12/06/16 06:50 Fibrinogen 279.0 mg/dL (238-498) 11/14/16 06:15 Problem List - Problems (1) Cardiopulmonary arrest Code(s): I46.9 - CARDIAC ARREST, CAUSE UNSPECIFIED (2) DVT (deep venous thrombosis) Code(s): I82.409 - ACUTE EMBOLISM AND THOMBOS UNSP DEEP VN UNSP LOWER EXTREMITY (3) ESRD (end stage renal disease) on dialysis Code(s): N18.6 - END STAGE RENAL DISEASE Z99.2 - DEPENDENCE ON RENAL DIALYSIS (4) Pneumonia Code(s): J18.9 - PNEUMONIA, UNSPECIFIED ORGANISM (5) Respiratory failure Code(s): J96.90 - RESPIRATORY FAILURE, UNSP, UNSP W HYPOXIA OR HYPERCAPNIA (6) Anemia Code(s): D64.9 - ANEMIA, UNSPECIFIED Qualifiers: Qualified Code(s): N18.9 - Chronic kidney disease, unspecified; D63.1 - Anemia in chronic kidney disease Assessment/Plan (1) ESRD (end stage renal disease) on dialysis Assessment/Plan: RENAL ON BOARD Code(s): N18.6 - END STAGE RENAL DISEASE Z99.2 - DEPENDENCE ON RENAL DIALYSIS (2) Respiratory failure Assessment/Plan: VENT SETTING PER PULM Code(s): J96.90 - RESPIRATORY FAILURE, UNSP, UNSP W HYPOXIA OR HYPERCAPNIA (3) Fever Assessment/Plan: NOTED ID ON CASE ON ZOSYN/LEVAQUIN Code(s): R50.9 - FEVER, UNSPECIFIED (4) Dysphagia Assessment/Plan: PEG Code(s): R13.10 - DYSPHAGIA, UNSPECIFIED FOR PLACEMENT? FULL CODE PALLIATIVE ON CASE GOAL OF TREATMENT? PASTOR ROSS
[2016-12-11] MEDS ORDERED: PT OWN MED DRAWER 7, Y5N ONE ×2 (09:02→23:01)
[2016-12-11] MEDS: AMINO ACIDS/PROTEIN HYDROLYS 30 ML LIQUID.PKT PO SCH ×2 (10:02→17:33)
[2016-12-11] MEDS: BACITRACIN 30 GM TUBE TOPICAL OINTMENT TP SCH (10:02)
[2016-12-11] MEDS: HEPARIN NA (PORCINE) 5,000 UNITS/ML 1ML VIAL SQ SCH ×2 (10:02→23:17)
[2016-12-11] MEDS: levETIRAcetam 500 MG/5 ML ORAL SOLUTION (UNIT-DOSE CUPS) PEG SCH ×2 (10:02→23:17)
[2016-12-11] MEDS: ZINC SULFATE 220 MG CAPSULE (FP) PEG SCH (10:03)
[2016-12-11] MEDS: FAMOTIDINE 20 MG/50 ML IVPB 50 ML IVPB SCH ×2 (10:03→23:17)
[2016-12-11] MEDS: ASCORBIC ACID 500 MG TABLET (FP) PO SCH (10:03)
[2016-12-11] MEDS: COLLAGENASE CLOSTRIDIUM HIST. 30 GRAMS TUBE TP SCH (10:03)
[2016-12-11] MEDS: CALCITRIOL 1 MCG/ML BOT NGT SCH (10:04)
[2016-12-11] MEDS ORDERED: oxyCODONE HCL 5 MG TABLET PEG PRN (12:08)
[2016-12-11] MEDS ORDERED: LORazepam 0.5 MG TABLET GT PRN (12:42)
[2016-12-11] MEDS: ACETAMINOPHEN 650 MG/20.3 ML ORAL SOLUTION (CUPS) PO PRN (13:32)
[2016-12-11] MEDS: fentaNYL 25mcg/hr PATCH.TD72 TD SCH (13:34)
--- NOTE | 2016-12-11 13:44 | PN ---
Progress Note, Physician History of Present Illness: Responsive to tactile stimulus Temps down- afebrile WBC 10 BC no growth - Current Medication List Current Medications: Active Medications Acetaminophen (Tylenol Oral Solution -) 650 mg PO Q6H PRN PRN Reason: FEVER OR PAIN Last Admin: 12/10/16 23:52 Dose: 650 mg Albuterol/Ipratropium (Duoneb -) 1 amp NEB TIDR [facility] Last Admin: 12/11/16 06:00 Dose: 1 amp Amino Acids (Prosource No Carb Liquid Pkt) 30 ml PO BID@0800,1730 [facility] Last Admin: 12/11/16 10:02 Dose: 30 ml Ascorbic Acid (Vitamin C -) 500 mg PO DAILY [facility] Last Admin: 12/11/16 10:03 Dose: 500 mg Bacitracin (Bacitracin -) 1 applic TP DAILY [facility] Last Admin: 12/11/16 10:02 Dose: 1 applic Calcitriol (Rocaltrol Liquid -) 0.5 mcg NGT DAILY [facility] Last Admin: 12/11/16 10:04 Dose: 0.5 mcg Collagenase (Santyl -) 1 applic TP DAILY [facility] Last Admin: 12/11/16 10:03 Dose: 1 applic Fentanyl (Duragesic 25mcg Patch -) 1 patch TD Q72H [facility] Stop: 12/15/16 12:59 Last Admin: 12/08/16 13:27 Dose: 1 patch Heparin Sodium (Porcine) (Heparin -) 5,000 unit SQ BID [facility] Last Admin: 12/11/16 10:02 Dose: 5,000 unit Famotidine/Sodium Chloride (Pepcid 20 Mg Premixed Ivpb -) 50 mls @ 100 mls/hr IVPB BID [facility] Last Admin: 12/11/16 10:03 Dose: 100 mls/hr Piperacillin Sod/Tazobactam Sod (Zosyn 2.25gm Ivpb (Pre-Docked)) 50 mls @ 100 mls/hr IVPB Q8H-IV [facility] PRN Reason: Protocol Last Admin: 12/11/16 10:03 Dose: 100 mls/hr Dextrose (D5w -) 1,000 mls @ 75 mls/hr IV ASDIR [facility] Last Admin: 12/10/16 13:49 Dose: 75 mls/hr Levetiracetam (Keppra Oral Solution -) 500 mg PEG BID [facility] Last Admin: 12/11/16 10:02 Dose: 500 mg Lorazepam (Ativan -) 0.5 mg GT Q8H PRN Miscellaneous (Duragesic Patch Waste) 1 each [facility] PRN PRN PRN Reason: PAIN Ondansetron HCl (Zofran Odt -) 4 mg SL Q8H PRN PRN Reason: NAUSEA AND/OR VOMITING Oxycodone HCl (Roxicodone -) 5 mg PEG Q6H PRN PRN Reason: PAIN Zinc Sulfate (Orazinc -) 220 mg PEG DAILY [facility] Last Admin: 12/11/16 10:03 Dose: 220 mg - Objective Vital Signs: Vital Signs Temperature 98.8 F 12/11/16 10:00 Pulse Rate 87 12/11/16 11:27 Respiratory Rate 18 12/11/16 10:15 Blood Pressure 113/56 12/11/16 10:00 O2 Sat by Pulse Oximetry (%) 98 12/11/16 11:27 Constitutional: Yes: No Distress, Cachectic Eyes: Yes: Conjunctiva Clear Cardiovascular: Yes: Regular Rate and Rhythm, S1, S2 Respiratory: Yes: CTA Bilaterally Gastrointestinal: Yes: Normal Bowel Sounds, Soft. No: Tenderness Edema: Yes Labs: CBC, BMP 12/11/16 06:30 12/11/16 06:40 INR, PTT INR 1.77 (0.82-1.09) H 12/06/16 06:50 Fibrinogen 279.0 mg/dL (238-498) 11/14/16 06:15 Assessment/Plan S/P cardiopulmonary arrest/ respiratory failure Recurrent fever- improved Post op J-tube / laparotomy/ DANNY Leukocytosis Cirrhosis Repeat c/s no growth Continue zosyn / levaquin Prognosis guarded
[2016-12-11] MEDS: DEXTROSE 5%-WATER - 1,000 ML IV SCH ×2 (13:49→17:34)
[2016-12-11] MEDS ORDERED: LEVOFLOXACIN 250 MG IVPB 50 ML IVPB ONE (14:00)
--- NOTE | 2016-12-11 15:13 | PN ---
Progress Note, Physician History of Present Illness: PULMONARY NO DISTRESS,LETHARGIC ,ON VENT SUPPORT ON AC MODE - Current Medication List Current Medications: Active Medications Acetaminophen (Tylenol Oral Solution -) 650 mg PO Q6H PRN PRN Reason: FEVER OR PAIN Last Admin: 12/11/16 13:32 Dose: 650 mg Albuterol/Ipratropium (Duoneb -) 1 amp NEB TIDR [facility] Amino Acids (Prosource No Carb Liquid Pkt) 30 ml PO BID@0800,1730 [facility] Last Admin: 12/11/16 10:02 Dose: 30 ml Ascorbic Acid (Vitamin C -) 500 mg PO DAILY [facility] Last Admin: 12/11/16 10:03 Dose: 500 mg Bacitracin (Bacitracin -) 1 applic TP DAILY [facility] Last Admin: 12/11/16 10:02 Dose: 1 applic Calcitriol (Rocaltrol Liquid -) 0.5 mcg NGT DAILY [facility] Last Admin: 12/11/16 10:04 Dose: 0.5 mcg Collagenase (Santyl -) 1 applic TP DAILY [facility] Last Admin: 12/11/16 10:03 Dose: 1 applic Fentanyl (Duragesic 25mcg Patch -) 1 patch TD Q72H [facility] Stop: 12/15/16 12:59 Last Admin: 12/11/16 13:34 Dose: 1 patch Heparin Sodium (Porcine) (Heparin -) 5,000 unit SQ BID [facility] Last Admin: 12/11/16 10:02 Dose: 5,000 unit Famotidine/Sodium Chloride (Pepcid 20 Mg Premixed Ivpb -) 50 mls @ 100 mls/hr IVPB BID [facility] Last Admin: 12/11/16 10:03 Dose: 100 mls/hr Piperacillin Sod/Tazobactam Sod (Zosyn 2.25gm Ivpb (Pre-Docked)) 50 mls @ 100 mls/hr IVPB Q8H-IV [facility] PRN Reason: Protocol Last Admin: 12/11/16 10:03 Dose: 100 mls/hr Dextrose (D5w -) 1,000 mls @ 75 mls/hr IV ASDIR [facility] Last Admin: 12/11/16 13:49 Dose: 75 mls/hr Levofloxacin (Levaquin 250 Mg Premixed Ivpb -) 50 mls @ 50 mls/hr IVPB Q2D@ 1000 [facility] Levetiracetam (Keppra Oral Solution -) 500 mg PEG BID [facility] Last Admin: 12/11/16 10:02 Dose: 500 mg Lorazepam (Ativan -) 0.5 mg GT Q8H PRN Last Admin: 12/11/16 13:34 Dose: 0.5 mg Miscellaneous (Duragesic Patch Waste) 1 each [facility] PRN PRN PRN Reason: PAIN Last Admin: 12/11/16 14:58 Dose: 1 each Ondansetron HCl (Zofran Odt -) 4 mg SL Q8H PRN PRN Reason: NAUSEA AND/OR VOMITING Oxycodone HCl (Roxicodone -) 5 mg PEG Q6H PRN PRN Reason: PAIN Last Admin: 12/11/16 13:32 Dose: 5 mg Zinc Sulfate (Orazinc -) 220 mg PEG DAILY [facility] Last Admin: 12/11/16 10:03 Dose: 220 mg - Objective Vital Signs: Vital Signs Temperature 98.8 F 12/11/16 10:00 Pulse Rate 87 12/11/16 11:27 Respiratory Rate 19 12/11/16 13:43 Blood Pressure 113/56 12/11/16 10:00 O2 Sat by Pulse Oximetry (%) 98 12/11/16 11:27 Constitutional: Yes: Calm, Thin Eyes: Yes: WNL HENT: Yes: WNL Neck: Yes: Supple (TRACH) Cardiovascular: Yes: Pulse Irregular, S1, S2 Respiratory: Yes: Diminished (FEW RHONCHI BILATERALLY), Rhonchi Gastrointestinal: Yes: Normal Bowel Sounds, Soft Extremities: Yes: WNL Edema: No Labs: CBC, BMP 12/11/16 06:30 12/11/16 06:40 INR, PTT INR 1.77 (0.82-1.09) H 12/06/16 06:50 Fibrinogen 279.0 mg/dL (238-498) 11/14/16 06:15 Problem List - Problems (1) Anemia Code(s): D64.9 - ANEMIA, UNSPECIFIED Qualifiers: Qualified Code(s): N18.9 - Chronic kidney disease, unspecified; D63.1 - Anemia in chronic kidney disease (2) Cardiopulmonary arrest Code(s): I46.9 - CARDIAC ARREST, CAUSE UNSPECIFIED (3) DVT (deep venous thrombosis) Code(s): I82.409 - ACUTE EMBOLISM AND THOMBOS UNSP DEEP VN UNSP LOWER EXTREMITY (4) Dysphagia Code(s): R13.10 - DYSPHAGIA, UNSPECIFIED (5) ESRD (end stage renal disease) on dialysis Code(s): N18.6 - END STAGE RENAL DISEASE Z99.2 - DEPENDENCE ON RENAL DIALYSIS (6) Pneumonia Code(s): J18.9 - PNEUMONIA, UNSPECIFIED ORGANISM (7) Respiratory failure Code(s): J96.90 - RESPIRATORY FAILURE, UNSP, UNSP W HYPOXIA OR HYPERCAPNIA (8) Shock Code(s): R57.9 - SHOCK, UNSPECIFIED Assessment/Plan A/P s/p PEA Cardiopulmonary Arrest s/p Hypothermia Protocol s/p Tracheostomy Pneumonia improved s/p Septic Shock Pulmonary HTN Lactic Acidosis resolved ESRD on HD r/o Anoxic Encephalopathy RLE distal DVT GI Bleed Thrombocytopenia - HD per renal - s/p antibiotics - monitor CBC - transfuse as needed - spontaneous breathing trials as tolerated - DVT/GI prophylaxis - continue discussions regarding goals of care DR ANGELA
--- NOTE | 2016-12-11 16:51 | PN ---
Progress Note, Physician History of Present Illness: Pt seen and examined at bedside. She was hypotensive this morning. - Current Medication List Current Medications: Active Medications Acetaminophen (Tylenol Oral Solution -) 650 mg PO Q6H PRN PRN Reason: FEVER OR PAIN Last Admin: 12/11/16 13:32 Dose: 650 mg Albuterol/Ipratropium (Duoneb -) 1 amp NEB TIDR [facility] Amino Acids (Prosource No Carb Liquid Pkt) 30 ml PO BID@0800,1730 [facility] Last Admin: 12/11/16 10:02 Dose: 30 ml Ascorbic Acid (Vitamin C -) 500 mg PO DAILY [facility] Last Admin: 12/11/16 10:03 Dose: 500 mg Bacitracin (Bacitracin -) 1 applic TP DAILY [facility] Last Admin: 12/11/16 10:02 Dose: 1 applic Calcitriol (Rocaltrol Liquid -) 0.5 mcg NGT DAILY [facility] Last Admin: 12/11/16 10:04 Dose: 0.5 mcg Collagenase (Santyl -) 1 applic TP DAILY [facility] Last Admin: 12/11/16 10:03 Dose: 1 applic Fentanyl (Duragesic 25mcg Patch -) 1 patch TD Q72H [facility] Stop: 12/15/16 12:59 Last Admin: 12/11/16 13:34 Dose: 1 patch Heparin Sodium (Porcine) (Heparin -) 5,000 unit SQ BID [facility] Last Admin: 12/11/16 10:02 Dose: 5,000 unit Famotidine/Sodium Chloride (Pepcid 20 Mg Premixed Ivpb -) 50 mls @ 100 mls/hr IVPB BID [facility] Last Admin: 12/11/16 10:03 Dose: 100 mls/hr Piperacillin Sod/Tazobactam Sod (Zosyn 2.25gm Ivpb (Pre-Docked)) 50 mls @ 100 mls/hr IVPB Q8H-IV [facility] PRN Reason: Protocol Last Admin: 12/11/16 10:03 Dose: 100 mls/hr Dextrose (D5w -) 1,000 mls @ 75 mls/hr IV ASDIR [facility] Last Admin: 12/11/16 13:49 Dose: 75 mls/hr Levofloxacin (Levaquin 250 Mg Premixed Ivpb -) 50 mls @ 50 mls/hr IVPB Q2D@ 1000 [facility] Levetiracetam (Keppra Oral Solution -) 500 mg PEG BID [facility] Last Admin: 12/11/16 10:02 Dose: 500 mg Lorazepam (Ativan -) 0.5 mg GT Q8H PRN Last Admin: 12/11/16 13:34 Dose: 0.5 mg Miscellaneous (Duragesic Patch Waste) 1 each [facility] PRN PRN PRN Reason: PAIN Last Admin: 12/11/16 14:58 Dose: 1 each Ondansetron HCl (Zofran Odt -) 4 mg SL Q8H PRN PRN Reason: NAUSEA AND/OR VOMITING Oxycodone HCl (Roxicodone -) 5 mg PEG Q6H PRN PRN Reason: PAIN Last Admin: 12/11/16 13:32 Dose: 5 mg Zinc Sulfate (Orazinc -) 220 mg PEG DAILY [facility] Last Admin: 12/11/16 10:03 Dose: 220 mg - Objective Vital Signs: Vital Signs Temperature 98.5 F 12/11/16 14:33 Pulse Rate 86 12/11/16 15:57 Respiratory Rate 16 12/11/16 14:33 Blood Pressure 94/54 12/11/16 15:57 O2 Sat by Pulse Oximetry (%) 98 12/11/16 11:27 Constitutional: Yes: Calm Eyes: Yes: Conjunctiva Clear HENT: Yes: Atraumatic Neck: Yes: Other (trache) Cardiovascular: Yes: S1, S2 Respiratory: Yes: Mechanically Ventilated Gastrointestinal: Yes: Soft, Other (peg) Genitourinary: Yes: Incontinence Musculoskeletal: Yes: Muscle Weakness Edema: Yes Neurological: Yes: Lethargy Labs: CBC, BMP 12/11/16 06:30 12/11/16 06:40 INR, PTT INR 1.77 (0.82-1.09) H 12/06/16 06:50 Fibrinogen 279.0 mg/dL (238-498) 11/14/16 06:15 Problem List - Problems (1) Cardiopulmonary arrest Code(s): I46.9 - CARDIAC ARREST, CAUSE UNSPECIFIED (2) DVT (deep venous thrombosis) Code(s): I82.409 - ACUTE EMBOLISM AND THOMBOS UNSP DEEP VN UNSP LOWER EXTREMITY (3) ESRD (end stage renal disease) on dialysis Code(s): N18.6 - END STAGE RENAL DISEASE Z99.2 - DEPENDENCE ON RENAL DIALYSIS (4) HCV (hepatitis C virus) Code(s): B19.20 - UNSPECIFIED VIRAL HEPATITIS C WITHOUT HEPATIC COMA (5) Respiratory failure Code(s): J96.90 - RESPIRATORY FAILURE, UNSP, UNSP W HYPOXIA OR HYPERCAPNIA Assessment/Plan Current Medications Generic Name Dose Route Start Last Admin Trade Name Freq PRN Reason Stop Dose Admin Acetaminophen 650 mg 11/29/16 15:26 12/11/16 13:32 Tylenol Oral Solution - PO 650 mg Q6H PRN Administration FEVER OR PAIN Albuterol/Ipratropium 1 amp 12/11/16 22:00 Duoneb - NEB TIDR [facility] Amino Acids 30 ml 11/29/16 17:30 12/11/16 10:02 Prosource No Carb Liquid Pkt PO 30 ml BID@0800,1730 [facility] Administration Ascorbic Acid 500 mg 11/30/16 10:00 12/11/16 10:03 Vitamin C - PO 500 mg DAILY [facility] Administration Bacitracin 1 applic 11/30/16 10:00 12/11/16 10:02 Bacitracin - TP 1 applic DAILY [facility] Administration Calcitriol 0.5 mcg 11/30/16 10:00 12/11/16 10:04 Rocaltrol Liquid - NGT 0.5 mcg DAILY [facility] Administration Collagenase 1 applic 12/06/16 13:30 12/11/16 10:03 Santyl - TP 1 applic DAILY [facility] Administration Fentanyl 1 patch 12/08/16 13:00 12/11/16 13:34 Duragesic 25mcg Patch - TD 12/15/16 12:59 1 patch Q72H [facility] Administration Heparin Sodium (Porcine) 5,000 unit 12/08/16 22:00 12/11/16 10:02 Heparin - SQ 5,000 unit BID [facility] Administration Famotidine/Sodium Chloride 50 mls @ 100 mls/hr 12/04/16 10:00 12/11/16 10:03 Pepcid 20 Mg Premixed Ivpb - IVPB 100 mls/hr BID [facility] Administration Piperacillin Sod/Tazobactam Sod 50 mls @ 100 mls/hr 12/08/16 12:15 12/11/16 10: 03 Zosyn 2.25gm Ivpb (Pre-Docked) IVPB 100 mls/hr Q8H-IV [facility] Administration Protocol Dextrose 1,000 mls @ 75 mls/hr 12/10/16 12:45 12/11/16 13:49 D5w - IV 75 mls/hr ASDIR [facility] Administration Levofloxacin 50 mls @ 50 mls/hr 12/13/16 10:00 Levaquin 250 Mg Premixed Ivpb - IVPB Q2D@1000 [facility] Levetiracetam 500 mg 11/29/16 22:00 12/11/16 10:02 Keppra Oral Solution - PEG 500 mg BID [facility] Administration Lorazepam 0.5 mg 12/11/16 12:42 12/11/16 13:34 Ativan - GT 0.5 mg Q8H PRN Administration Miscellaneous 1 each 12/08/16 12:02 12/11/16 14:58 Duragesic Patch Waste [facility] 1 each PRN PRN Administration PAIN Ondansetron HCl 4 mg 11/29/16 15:26 Zofran Odt - SL Q8H PRN NAUSEA AND/OR VOMITING Oxycodone HCl 5 mg 12/11/16 12:08 12/11/16 13:32 Roxicodone - PEG 5 mg Q6H PRN Administration PAIN Zinc Sulfate 220 mg 11/30/16 10:00 12/11/16 10:03 Orazinc - PEG 220 mg DAILY [facility] Administration Impression 1. ESRD 2. s/p cardiopulmonary arrest 3. acute respiratory failure 4. Pneumonia 5. DVT of right leg 6. S/P Seizure following the arrest 7. Right renal complex cyst > 5cms in diameter 8. Anemia 9. Thrombocytopenia 10. H/O HCV 11. GI bleed 12. s/p exploratory laparotomy, lysis of adhesions, small bowel resection, and feeding jejunostomy Plan - will arrange for HD in am - decrease rate of fluids - attempt to decrease dose of narcotics - family to discuss GOC - vent support - will cont epogen for anemia - surgery following pt Dr Espino
[2016-12-12] MEDS: PIPERACILLIN/TAZOB 2.25 GM 50 ML IVPB SCH ×3 (03:33→17:12)
[2016-12-12] MEDS: ALBUTEROL SO4 2.5/IPRATROPIUM 0.5 INH SOL 3 ML VIAL.NEB. NEB SCH ×3 (06:39→22:05)
[2016-12-12] MEDS ORDERED: EPOETIN ALFA 10,000 UNIT/1 ML VIAL IVPUSH ONE (08:00)
[2016-12-12 08:07] LABS: BASOPHIL 0.6 % (0-2.0); EOSINOPHIL 6.3 % (0-4.5); MCH 33.3 pg (25.7-33.7); MCHC 33.5 g/dl (32.0-36.0); MEAN CELL VOLUME 99.4 fl (80-96); NEUTROPHILS 70.2 % (42.8-82.8); PLATELET COUNT 49 K/MM3 (134-434); RDW 22.6 % (11.6-15.6); WHITE BLOOD COUNT 9.1 K/mm3 (4.0-10.0)
[2016-12-12 08:24] LABS: ALBUMIN 1.3 g/dl (3.4-5.0); BILIRUBIN,TOTAL 0.8 mg/dL (0.2-1.0); CALCIUM 8.5 mg/dL (8.5-10.1); CREATININE 4.8 mg/dL (0.55-1.02); TOT PROT 6.2 g/dl (6.4-8.2)
[2016-12-12] MEDS: ACETAMINOPHEN 650 MG/20.3 ML ORAL SOLUTION (CUPS) PO PRN (10:02)
[2016-12-12] MEDS: ASCORBIC ACID 500 MG TABLET (FP) PO SCH (10:04)
[2016-12-12] MEDS: levETIRAcetam 500 MG/5 ML ORAL SOLUTION (UNIT-DOSE CUPS) PEG SCH ×2 (10:04→22:18)
[2016-12-12] MEDS: ZINC SULFATE 220 MG CAPSULE (FP) PEG SCH (10:04)
[2016-12-12] MEDS: BACITRACIN 30 GM TUBE TOPICAL OINTMENT TP SCH (10:04)
[2016-12-12] MEDS: AMINO ACIDS/PROTEIN HYDROLYS 30 ML LIQUID.PKT PO SCH ×2 (10:04→17:12)
[2016-12-12] MEDS: FAMOTIDINE 20 MG/50 ML IVPB 50 ML IVPB SCH ×2 (10:05→22:18)
[2016-12-12] MEDS: CALCITRIOL 1 MCG/ML BOT NGT SCH (10:06)
[2016-12-12] MEDS: COLLAGENASE CLOSTRIDIUM HIST. 30 GRAMS TUBE TP SCH (10:06)
[2016-12-12] MEDS: DEXTROSE 5%-WATER - 1,000 ML IV SCH ×2 (10:11→17:12)
[2016-12-12] MEDS: HEPARIN NA (PORCINE) 5,000 UNITS/ML 1ML VIAL SQ SCH ×2 (10:11→22:17)
--- NOTE | 2016-12-12 13:02 | PN ---
Progress Note, Physician History of Present Illness: Pt seen and examined at bedside. She is lethargic. Pt remains on vent. - Current Medication List Current Medications: Active Medications Acetaminophen (Tylenol Oral Solution -) 650 mg PO Q6H PRN PRN Reason: FEVER OR PAIN Last Admin: 12/12/16 10:02 Dose: 650 mg Albuterol/Ipratropium (Duoneb -) 1 amp NEB TIDR [facility] Last Admin: 12/12/16 06:39 Dose: 1 amp Amino Acids (Prosource No Carb Liquid Pkt) 30 ml PO BID@0800,1730 [facility] Last Admin: 12/12/16 10:04 Dose: 30 ml Ascorbic Acid (Vitamin C -) 500 mg PO DAILY [facility] Last Admin: 12/12/16 10:04 Dose: 500 mg Bacitracin (Bacitracin -) 1 applic TP DAILY [facility] Last Admin: 12/12/16 10:04 Dose: 1 applic Calcitriol (Rocaltrol Liquid -) 0.5 mcg NGT DAILY [facility] Last Admin: 12/12/16 10:06 Dose: 0.5 mcg Collagenase (Santyl -) 1 applic TP DAILY [facility] Last Admin: 12/12/16 10:06 Dose: 1 applic Fentanyl (Duragesic 25mcg Patch -) 1 patch TD Q72H [facility] Stop: 12/15/16 12:59 Last Admin: 12/11/16 13:34 Dose: 1 patch Heparin Sodium (Porcine) (Heparin -) 5,000 unit SQ BID [facility] Last Admin: 12/12/16 10:11 Dose: 5,000 unit Famotidine/Sodium Chloride (Pepcid 20 Mg Premixed Ivpb -) 50 mls @ 100 mls/hr IVPB BID [facility] Last Admin: 12/12/16 10:05 Dose: 100 mls/hr Piperacillin Sod/Tazobactam Sod (Zosyn 2.25gm Ivpb (Pre-Docked)) 50 mls @ 100 mls/hr IVPB Q8H-IV MARIE PRN Reason: Protocol Last Admin: 12/12/16 10:05 Dose: 100 mls/hr Levofloxacin (Levaquin 250 Mg Premixed Ivpb -) 50 mls @ 50 mls/hr IVPB Q2D@ 1000 MARIE Dextrose (D5w -) 1,000 mls @ 40 mls/hr IV ASDIR [facility] Last Admin: 12/12/16 10:11 Dose: 40 mls/hr Levetiracetam (Keppra Oral Solution -) 500 mg PEG BID [facility] Last Admin: 12/12/16 10:04 Dose: 500 mg Lorazepam (Ativan -) 0.5 mg GT Q8H PRN Last Admin: 12/11/16 13:34 Dose: 0.5 mg Miscellaneous (Duragesic Patch Waste) 1 each MC PRN PRN PRN Reason: PAIN Last Admin: 12/11/16 14:58 Dose: 1 each Ondansetron HCl (Zofran Odt -) 4 mg SL Q8H PRN PRN Reason: NAUSEA AND/OR VOMITING Oxycodone HCl (Roxicodone -) 5 mg PEG Q6H PRN PRN Reason: PAIN Last Admin: 12/11/16 13:32 Dose: 5 mg Zinc Sulfate (Orazinc -) 220 mg PEG DAILY [facility] Last Admin: 12/12/16 10:04 Dose: 220 mg - Objective Vital Signs: Vital Signs Temperature 101.2 F H 12/12/16 10:00 Pulse Rate 99 H 12/12/16 12:09 Respiratory Rate 27 H 12/12/16 10:35 Blood Pressure 106/44 12/12/16 10:00 O2 Sat by Pulse Oximetry (%) 98 12/12/16 12:09 Constitutional: Yes: Calm HENT: Yes: Atraumatic Neck: Yes: Other (trache) Cardiovascular: Yes: S1, S2 Respiratory: Yes: Mechanically Ventilated Gastrointestinal: Yes: Other (peg) Genitourinary: Yes: Incontinence Musculoskeletal: Yes: Muscle Weakness Edema: Yes Neurological: Yes: Lethargy Labs: CBC, BMP 12/12/16 05:45 12/12/16 05:45 INR, PTT INR 1.77 (0.82-1.09) H 12/06/16 06:50 Fibrinogen 279.0 mg/dL (238-498) 11/14/16 06:15 Problem List - Problems (1) Cardiopulmonary arrest Code(s): I46.9 - CARDIAC ARREST, CAUSE UNSPECIFIED (2) DVT (deep venous thrombosis) Code(s): I82.409 - ACUTE EMBOLISM AND THOMBOS UNSP DEEP VN UNSP LOWER EXTREMITY (3) ESRD (end stage renal disease) on dialysis Code(s): N18.6 - END STAGE RENAL DISEASE Z99.2 - DEPENDENCE ON RENAL DIALYSIS (4) HCV (hepatitis C virus) Code(s): B19.20 - UNSPECIFIED VIRAL HEPATITIS C WITHOUT HEPATIC COMA (5) Respiratory failure Code(s): J96.90 - RESPIRATORY FAILURE, UNSP, UNSP W HYPOXIA OR HYPERCAPNIA Assessment/Plan Current Medications Generic Name Dose Route Start Last Admin Trade Name Freq PRN Reason Stop Dose Admin Acetaminophen 650 mg 11/29/16 15:26 12/12/16 10:02 Tylenol Oral Solution - PO 650 mg Q6H PRN Administration FEVER OR PAIN Albuterol/Ipratropium 1 amp 12/11/16 22:00 12/12/16 06:39 Duoneb - NEB 1 amp TIDR MARIE Administration Amino Acids 30 ml 11/29/16 17:30 12/12/16 10:04 Prosource No Carb Liquid Pkt PO 30 ml BID@0800,1730 MARIE Administration Ascorbic Acid 500 mg 11/30/16 10:00 12/12/16 10:04 Vitamin C - PO 500 mg DAILY MARIE Administration Bacitracin 1 applic 11/30/16 10:00 12/12/16 10:04 Bacitracin - TP 1 applic DAILY MARIE Administration Calcitriol 0.5 mcg 11/30/16 10:00 12/12/16 10:06 Rocaltrol Liquid - NGT 0.5 mcg DAILY MARIE Administration Collagenase 1 applic 12/06/16 13:30 12/12/16 10:06 Santyl - TP 1 applic DAILY MARIE Administration Fentanyl 1 patch 12/08/16 13:00 12/11/16 13:34 Duragesic 25mcg Patch - TD 12/15/16 12:59 1 patch Q72H MARIE Administration Heparin Sodium (Porcine) 5,000 unit 12/08/16 22:00 12/12/16 10:11 Heparin - SQ 5,000 unit BID MARIE Administration Famotidine/Sodium Chloride 50 mls @ 100 mls/hr 12/04/16 10:00 12/12/16 10:05 Pepcid 20 Mg Premixed Ivpb - IVPB 100 mls/hr BID MARIE Administration Piperacillin Sod/Tazobactam Sod 50 mls @ 100 mls/hr 12/08/16 12:15 12/12/16 10: 05 Zosyn 2.25gm Ivpb (Pre-Docked) IVPB 100 mls/hr Q8H-IV MARIE Administration Protocol Levofloxacin 50 mls @ 50 mls/hr 12/13/16 10:00 Levaquin 250 Mg Premixed Ivpb - IVPB Q2D@1000 MARIE Dextrose 1,000 mls @ 40 mls/hr 12/11/16 16:51 12/12/16 10:11 D5w - IV 40 mls/hr ASDIR MARIE Administration Levetiracetam 500 mg 11/29/16 22:00 12/12/16 10:04 Keppra Oral Solution - PEG 500 mg BID MARIE Administration Lorazepam 0.5 mg 12/11/16 12:42 12/11/16 13:34 Ativan - GT 0.5 mg Q8H PRN Administration Miscellaneous 1 each 12/08/16 12:02 12/11/16 14:58 Duragesic Patch Waste MC 1 each PRN PRN Administration PAIN Ondansetron HCl 4 mg 11/29/16 15:26 Zofran Odt - SL Q8H PRN NAUSEA AND/OR VOMITING Oxycodone HCl 5 mg 12/11/16 12:08 12/11/16 13:32 Roxicodone - PEG 5 mg Q6H PRN Administration PAIN Zinc Sulfate 220 mg 11/30/16 10:00 12/12/16 10:04 Orazinc - PEG 220 mg DAILY MARIE Administration Impression 1. ESRD 2. s/p cardiopulmonary arrest 3. acute respiratory failure 4. Pneumonia 5. DVT of right leg 6. S/P Seizure following the arrest 7. Right renal complex cyst > 5cms in diameter 8. Anemia 9. Thrombocytopenia 10. H/O HCV 11. GI bleed 12. s/p exploratory laparotomy, lysis of adhesions, small bowel resection, and feeding jejunostomy Plan - will attempt HD today - pts blood pressure has been low - family to discuss GOC, still wants HD therapy - albumin on HD - vent support - will cont epogen for anemia - surgery following pt Dr Espino
--- NOTE | 2016-12-12 13:59 | PN ---
Progress Note (short form) - Note Progress Note: PULMONARY Vented on volume assist control. Febrile. at bedside. Signed DNR yesterday. Last Vital Signs Temp Pulse Resp BP Pulse Ox 101.2 F H 114 H 27 H 93/43 98 12/12/16 10:00 12/12/16 13:01 12/12/16 10:35 12/12/16 13:01 12/12/16 12:09 Gen: vented, lethargic Heart: RRR Lung: decreased breath sounds at the bases Abd: soft, nontender Ext: no edema CBC, BMP 12/12/16 05:45 12/12/16 05:45 Active Medications Acetaminophen (Tylenol Oral Solution -) 650 mg PO Q6H PRN PRN Reason: FEVER OR PAIN Last Admin: 12/12/16 10:02 Dose: 650 mg Albuterol/Ipratropium (Duoneb -) 1 amp NEB TIDR [facility] Last Admin: 12/12/16 06:39 Dose: 1 amp Amino Acids (Prosource No Carb Liquid Pkt) 30 ml PO BID@0800,1730 [facility] Last Admin: 12/12/16 10:04 Dose: 30 ml Ascorbic Acid (Vitamin C -) 500 mg PO DAILY [facility] Last Admin: 12/12/16 10:04 Dose: 500 mg Bacitracin (Bacitracin -) 1 applic TP DAILY [facility] Last Admin: 12/12/16 10:04 Dose: 1 applic Calcitriol (Rocaltrol Liquid -) 0.5 mcg NGT DAILY [facility] Last Admin: 12/12/16 10:06 Dose: 0.5 mcg Collagenase (Santyl -) 1 applic TP DAILY [facility] Last Admin: 12/12/16 10:06 Dose: 1 applic Fentanyl (Duragesic 25mcg Patch -) 1 patch TD Q72H [facility] Stop: 12/15/16 12:59 Last Admin: 12/11/16 13:34 Dose: 1 patch Heparin Sodium (Porcine) (Heparin -) 5,000 unit SQ BID [facility] Last Admin: 12/12/16 10:11 Dose: 5,000 unit Famotidine/Sodium Chloride (Pepcid 20 Mg Premixed Ivpb -) 50 mls @ 100 mls/hr IVPB BID [facility] Last Admin: 12/12/16 10:05 Dose: 100 mls/hr Piperacillin Sod/Tazobactam Sod (Zosyn 2.25gm Ivpb (Pre-Docked)) 50 mls @ 100 mls/hr IVPB Q8H-IV MARIE PRN Reason: Protocol Last Admin: 12/12/16 10:05 Dose: 100 mls/hr Levofloxacin (Levaquin 250 Mg Premixed Ivpb -) 50 mls @ 50 mls/hr IVPB Q2D@ 1000 MARIE Dextrose (D5w -) 1,000 mls @ 40 mls/hr IV ASDIR [facility] Last Admin: 12/12/16 10:11 Dose: 40 mls/hr Levetiracetam (Keppra Oral Solution -) 500 mg PEG BID [facility] Last Admin: 12/12/16 10:04 Dose: 500 mg Lorazepam (Ativan -) 0.5 mg GT Q8H PRN Last Admin: 12/11/16 13:34 Dose: 0.5 mg Miscellaneous (Duragesic Patch Waste) 1 each MC PRN PRN PRN Reason: PAIN Last Admin: 12/11/16 14:58 Dose: 1 each Ondansetron HCl (Zofran Odt -) 4 mg SL Q8H PRN PRN Reason: NAUSEA AND/OR VOMITING Oxycodone HCl (Roxicodone -) 5 mg PEG Q6H PRN PRN Reason: PAIN Last Admin: 12/11/16 13:32 Dose: 5 mg Zinc Sulfate (Orazinc -) 220 mg PEG DAILY [facility] Last Admin: 12/12/16 10:04 Dose: 220 mg A/P s/p PEA Cardiopulmonary Arrest s/p Hypothermia Protocol s/p Tracheostomy Pneumonia improved s/p Septic Shock Pulmonary HTN Lactic Acidosis resolved ESRD on HD r/o Anoxic Encephalopathy RLE distal DVT GI Bleed Thrombocytopenia - HD per renal - continue antibiotics - f/u cultures - monitor CBC - transfuse as needed - spontaneous breathing trials as tolerated - DVT/GI prophylaxis - continue discussions regarding goals of care - poor overall prognosis for meaningful recovery, recommend palliative care - discussed with poor overall prognosis and he understands, will oxycodone to morphine per 's request
--- NOTE | 2016-12-12 14:19 | PN ---
Progress Note, Physician History of Present Illness: Febrile 101.2 Repeat BC sent More lethargic today WBC WNL - Current Medication List Current Medications: Active Medications Acetaminophen (Tylenol Oral Solution -) 650 mg PO Q6H PRN PRN Reason: FEVER OR PAIN Last Admin: 12/12/16 10:02 Dose: 650 mg Albuterol/Ipratropium (Duoneb -) 1 amp NEB TIDR [facility] Last Admin: 12/12/16 13:00 Dose: 1 amp Amino Acids (Prosource No Carb Liquid Pkt) 30 ml PO BID@0800,1730 [facility] Last Admin: 12/12/16 10:04 Dose: 30 ml Ascorbic Acid (Vitamin C -) 500 mg PO DAILY [facility] Last Admin: 12/12/16 10:04 Dose: 500 mg Bacitracin (Bacitracin -) 1 applic TP DAILY [facility] Last Admin: 12/12/16 10:04 Dose: 1 applic Calcitriol (Rocaltrol Liquid -) 0.5 mcg NGT DAILY [facility] Last Admin: 12/12/16 10:06 Dose: 0.5 mcg Collagenase (Santyl -) 1 applic TP DAILY [facility] Last Admin: 12/12/16 10:06 Dose: 1 applic Fentanyl (Duragesic 25mcg Patch -) 1 patch TD Q72H [facility] Stop: 12/15/16 12:59 Last Admin: 12/11/16 13:34 Dose: 1 patch Heparin Sodium (Porcine) (Heparin -) 5,000 unit SQ BID [facility] Last Admin: 12/12/16 10:11 Dose: 5,000 unit Famotidine/Sodium Chloride (Pepcid 20 Mg Premixed Ivpb -) 50 mls @ 100 mls/hr IVPB BID [facility] Last Admin: 12/12/16 10:05 Dose: 100 mls/hr Piperacillin Sod/Tazobactam Sod (Zosyn 2.25gm Ivpb (Pre-Docked)) 50 mls @ 100 mls/hr IVPB Q8H-IV MARIE PRN Reason: Protocol Last Admin: 12/12/16 10:05 Dose: 100 mls/hr Levofloxacin (Levaquin 250 Mg Premixed Ivpb -) 50 mls @ 50 mls/hr IVPB Q2D@ 1000 MARIE Dextrose (D5w -) 1,000 mls @ 40 mls/hr IV ASDIR [facility] Last Admin: 12/12/16 10:11 Dose: 40 mls/hr Levetiracetam (Keppra Oral Solution -) 500 mg PEG BID [facility] Last Admin: 12/12/16 10:04 Dose: 500 mg Lorazepam (Ativan -) 0.5 mg GT Q8H PRN Last Admin: 12/11/16 13:34 Dose: 0.5 mg Miscellaneous (Duragesic Patch Waste) 1 each MC PRN PRN PRN Reason: PAIN Last Admin: 12/11/16 14:58 Dose: 1 each Morphine Sulfate (Morphine Injection -) 2 mg IVPUSH Q4H PRN PRN Reason: PAIN Ondansetron HCl (Zofran Odt -) 4 mg SL Q8H PRN PRN Reason: NAUSEA AND/OR VOMITING Zinc Sulfate (Orazinc -) 220 mg PEG DAILY [facility] Last Admin: 12/12/16 10:04 Dose: 220 mg - Objective Vital Signs: Vital Signs Temperature 101.2 F H 12/12/16 10:00 Pulse Rate 114 H 12/12/16 13:01 Respiratory Rate 23 12/12/16 13:59 Blood Pressure 93/43 12/12/16 13:01 O2 Sat by Pulse Oximetry (%) 98 12/12/16 12:09 Constitutional: Yes: No Distress, Cachectic Eyes: Yes: Conjunctiva Clear Cardiovascular: Yes: Regular Rate and Rhythm, S1, S2 Respiratory: Yes: Mechanically Ventilated Gastrointestinal: Yes: Normal Bowel Sounds, Soft. No: Tenderness Edema: Yes Edema: LLE: 1+, RLE: 1+ Labs: CBC, BMP 12/12/16 05:45 12/12/16 05:45 INR, PTT INR 1.77 (0.82-1.09) H 12/06/16 06:50 Fibrinogen 279.0 mg/dL (238-498) 11/14/16 06:15 Assessment/Plan S/P cardiopulmonary arrest/ respiratory failure Recurrent fever Post op J-tube / laparotomy/ DANNY Leukocytosis Cirrhosis Repeat c/s obtained Continue zosyn / levaquin Prognosis guarded
[2016-12-12] MEDS: ALBUMIN HUMAN 25% 100 ML VIAL IVPB SCH ×2 (14:35→14:36)
--- NOTE | 2016-12-12 16:10 | PN ---
Progress Note, Physician Chief Complaint: PATIENT WITH RESTRAINTS FOR HER SAFETY TRACHEOSTOMY AND VENT IN PLACE - Current Medication List Current Medications: Active Medications Acetaminophen (Tylenol Oral Solution -) 650 mg PO Q6H PRN PRN Reason: FEVER OR PAIN Last Admin: 12/12/16 10:02 Dose: 650 mg Albuterol/Ipratropium (Duoneb -) 1 amp NEB TIDR [facility] Last Admin: 12/12/16 13:00 Dose: 1 amp Amino Acids (Prosource No Carb Liquid Pkt) 30 ml PO BID@0800,1730 [facility] Last Admin: 12/12/16 10:04 Dose: 30 ml Ascorbic Acid (Vitamin C -) 500 mg PO DAILY [facility] Last Admin: 12/12/16 10:04 Dose: 500 mg Bacitracin (Bacitracin -) 1 applic TP DAILY [facility] Last Admin: 12/12/16 10:04 Dose: 1 applic Calcitriol (Rocaltrol Liquid -) 0.5 mcg NGT DAILY [facility] Last Admin: 12/12/16 10:06 Dose: 0.5 mcg Collagenase (Santyl -) 1 applic TP DAILY [facility] Last Admin: 12/12/16 10:06 Dose: 1 applic Fentanyl (Duragesic 25mcg Patch -) 1 patch TD Q72H [facility] Stop: 12/15/16 12:59 Last Admin: 12/11/16 13:34 Dose: 1 patch Heparin Sodium (Porcine) (Heparin -) 5,000 unit SQ BID [facility] Last Admin: 12/12/16 10:11 Dose: 5,000 unit Famotidine/Sodium Chloride (Pepcid 20 Mg Premixed Ivpb -) 50 mls @ 100 mls/hr IVPB BID [facility] Last Admin: 12/12/16 10:05 Dose: 100 mls/hr Piperacillin Sod/Tazobactam Sod (Zosyn 2.25gm Ivpb (Pre-Docked)) 50 mls @ 100 mls/hr IVPB Q8H-IV MARIE PRN Reason: Protocol Last Admin: 12/12/16 10:05 Dose: 100 mls/hr Levofloxacin (Levaquin 250 Mg Premixed Ivpb -) 50 mls @ 50 mls/hr IVPB Q2D@ 1000 MARIE Dextrose (D5w -) 1,000 mls @ 40 mls/hr IV ASDIR [facility] Last Admin: 12/12/16 10:11 Dose: 40 mls/hr Levetiracetam (Keppra Oral Solution -) 500 mg PEG BID [facility] Last Admin: 12/12/16 10:04 Dose: 500 mg Lorazepam (Ativan -) 0.5 mg GT Q8H PRN Last Admin: 12/11/16 13:34 Dose: 0.5 mg Miscellaneous (Duragesic Patch Waste) 1 each MC PRN PRN PRN Reason: PAIN Last Admin: 12/11/16 14:58 Dose: 1 each Morphine Sulfate (Morphine Injection -) 2 mg IVPUSH Q4H PRN PRN Reason: PAIN Ondansetron HCl (Zofran Odt -) 4 mg SL Q8H PRN PRN Reason: NAUSEA AND/OR VOMITING Zinc Sulfate (Orazinc -) 220 mg PEG DAILY [facility] Last Admin: 12/12/16 10:04 Dose: 220 mg - Objective Vital Signs: Vital Signs Temperature 99.5 F 12/12/16 14:08 Pulse Rate 113 H 12/12/16 14:08 Respiratory Rate 25 H 12/12/16 14:08 Blood Pressure 93/47 12/12/16 14:08 O2 Sat by Pulse Oximetry (%) 98 12/12/16 12:09 Constitutional: Yes: Moderate Distress Eyes: Yes: WNL HENT: Yes: WNL Neck: Yes: WNL, Other (TRACHEOSTOMY) Cardiovascular: Yes: WNL Respiratory: Yes: Mechanically Ventilated Gastrointestinal: Yes: WNL Genitourinary: Yes: Other Musculoskeletal: Yes: Muscle Weakness Extremities: Yes: Other Edema: Yes Peripheral Pulses WNL: Yes Integumentary: Yes: Rash, Other Wound/Incision: Yes: Reddened Neurological: Yes: Pre-Existing Deficit ...Motor Strength: LLE, RLE Psychiatric: Yes: Other Labs: CBC, BMP 12/12/16 05:45 12/12/16 05:45 INR, PTT INR 1.77 (0.82-1.09) H 12/06/16 06:50 Fibrinogen 279.0 mg/dL (238-498) 11/14/16 06:15 Problem List - Problems (1) Cardiopulmonary arrest Code(s): I46.9 - CARDIAC ARREST, CAUSE UNSPECIFIED (2) DVT (deep venous thrombosis) Code(s): I82.409 - ACUTE EMBOLISM AND THOMBOS UNSP DEEP VN UNSP LOWER EXTREMITY (3) ESRD (end stage renal disease) on dialysis Code(s): N18.6 - END STAGE RENAL DISEASE Z99.2 - DEPENDENCE ON RENAL DIALYSIS (4) HCV (hepatitis C virus) Code(s): B19.20 - UNSPECIFIED VIRAL HEPATITIS C WITHOUT HEPATIC COMA (5) Metabolic encephalopathy Code(s): G93.41 - METABOLIC ENCEPHALOPATHY (6) Pneumonia Code(s): J18.9 - PNEUMONIA, UNSPECIFIED ORGANISM (7) Respiratory failure Code(s): J96.90 - RESPIRATORY FAILURE, UNSP, UNSP W HYPOXIA OR HYPERCAPNIA (8) Dysphagia Code(s): R13.10 - DYSPHAGIA, UNSPECIFIED Assessment/Plan THE HCP SIGNED DNR/DNI I SPOKE WITH DONA JULIO FROM [employer]ICS DEPARTMENT WHO STATES THE IS CONSIDERING SIGNING A STOP DIALYSIS FORM. TRACHEOSTOMY IN PLACE/CONTINUE VENT CARE POOR PROGNOSIS
[2016-12-12] MEDS: morphine CARPU-JECT 2 MG/1 ML DISP.SYRIN IVPUSH PRN (17:14)
[2016-12-13] MEDS: PIPERACILLIN/TAZOB 2.25 GM 50 ML IVPB SCH ×3 (01:25→18:02)
[2016-12-13] MEDS: ALBUTEROL SO4 2.5/IPRATROPIUM 0.5 INH SOL 3 ML VIAL.NEB. NEB SCH ×3 (06:40→22:36)
[2016-12-13] MEDS: ACETAMINOPHEN 650 MG/20.3 ML ORAL SOLUTION (CUPS) PO PRN (08:50)
[2016-12-13] MEDS: morphine CARPU-JECT 2 MG/1 ML DISP.SYRIN IVPUSH PRN ×3 (08:50→23:31)
[2016-12-13] MEDS ORDERED: LEVOFLOXACIN 250 MG IVPB 50 ML IVPB SCH (10:00)
[2016-12-13] MEDS ORDERED: morphine CARPU-JECT 2 MG/1 ML DISP.SYRIN IVPUSH ONE (11:39)
[2016-12-13] MEDS ORDERED: PT OWN MED DRAWER 7, Y5N ONE ×2 (11:44→23:05)
[2016-12-13] MEDS: levETIRAcetam 500 MG/5 ML ORAL SOLUTION (UNIT-DOSE CUPS) PEG SCH ×2 (11:45→23:23)
[2016-12-13] MEDS: ZINC SULFATE 220 MG CAPSULE (FP) PEG SCH (11:45)
[2016-12-13] MEDS: ASCORBIC ACID 500 MG TABLET (FP) PO SCH (11:45)
[2016-12-13] MEDS: AMINO ACIDS/PROTEIN HYDROLYS 30 ML LIQUID.PKT PO SCH ×2 (11:46→18:02)
[2016-12-13] MEDS: FAMOTIDINE 20 MG/50 ML IVPB 50 ML IVPB SCH ×2 (11:46→23:23)
[2016-12-13] MEDS: HEPARIN NA (PORCINE) 5,000 UNITS/ML 1ML VIAL SQ SCH ×2 (11:47→23:23)
[2016-12-13] MEDS: BACITRACIN 30 GM TUBE TOPICAL OINTMENT TP SCH (11:47)
[2016-12-13] MEDS: CALCITRIOL 1 MCG/ML BOT NGT SCH (11:48)
[2016-12-13] MEDS: COLLAGENASE CLOSTRIDIUM HIST. 30 GRAMS TUBE TP SCH (11:48)
--- NOTE | 2016-12-13 12:54 | PN ---
Progress Note, Physician History of Present Illness: Pt seen and examined at bedside. Pt appears lethargic. is at bedside and has decided to stop dialysis. - Current Medication List Current Medications: Active Medications Acetaminophen (Tylenol Oral Solution -) 650 mg PO Q6H PRN PRN Reason: FEVER OR PAIN Last Admin: 12/13/16 08:50 Dose: 650 mg Albuterol/Ipratropium (Duoneb -) 1 amp NEB TIDR [facility] Last Admin: 12/13/16 06:40 Dose: 1 amp Amino Acids (Prosource No Carb Liquid Pkt) 30 ml PO BID@0800,1730 [facility] Last Admin: 12/13/16 11:46 Dose: 30 ml Ascorbic Acid (Vitamin C -) 500 mg PO DAILY [facility] Last Admin: 12/13/16 11:45 Dose: 500 mg Bacitracin (Bacitracin -) 1 applic TP DAILY [facility] Last Admin: 12/13/16 11:47 Dose: 1 applic Calcitriol (Rocaltrol Liquid -) 0.5 mcg NGT DAILY [facility] Last Admin: 12/13/16 11:48 Dose: 0.5 mcg Collagenase (Santyl -) 1 applic TP DAILY [facility] Last Admin: 12/13/16 11:48 Dose: 1 applic Fentanyl (Duragesic 25mcg Patch -) 1 patch TD Q72H [facility] Stop: 12/15/16 12:59 Last Admin: 12/11/16 13:34 Dose: 1 patch Heparin Sodium (Porcine) (Heparin -) 5,000 unit SQ BID [facility] Last Admin: 12/13/16 11:47 Dose: 5,000 unit Famotidine/Sodium Chloride (Pepcid 20 Mg Premixed Ivpb -) 50 mls @ 100 mls/hr IVPB BID [facility] Last Admin: 12/13/16 11:46 Dose: 100 mls/hr Piperacillin Sod/Tazobactam Sod (Zosyn 2.25gm Ivpb (Pre-Docked)) 50 mls @ 100 mls/hr IVPB Q8H-IV MARIE PRN Reason: Protocol Last Admin: 12/13/16 11:46 Dose: 100 mls/hr Levofloxacin (Levaquin 250 Mg Premixed Ivpb -) 50 mls @ 50 mls/hr IVPB Q2D@ 1000 [facility] Last Admin: 12/13/16 11:46 Dose: 50 mls/hr Dextrose (D5w -) 1,000 mls @ 40 mls/hr IV ASDIR [facility] Last Admin: 12/12/16 17:12 Dose: Not Given Levetiracetam (Keppra Oral Solution -) 500 mg PEG BID [facility] Last Admin: 12/13/16 11:45 Dose: 500 mg Lorazepam (Ativan -) 0.5 mg GT Q8H PRN Last Admin: 12/11/16 13:34 Dose: 0.5 mg Miscellaneous (Duragesic Patch Waste) 1 each MC PRN PRN PRN Reason: PAIN Last Admin: 12/11/16 14:58 Dose: 1 each Morphine Sulfate (Morphine Injection -) 2 mg IVPUSH Q4H PRN PRN Reason: PAIN Last Admin: 12/13/16 08:50 Dose: 2 mg Ondansetron HCl (Zofran Odt -) 4 mg SL Q8H PRN PRN Reason: NAUSEA AND/OR VOMITING Zinc Sulfate (Orazinc -) 220 mg PEG DAILY [facility] Last Admin: 12/13/16 11:45 Dose: 220 mg - Objective Vital Signs: Vital Signs Temperature 100.5 F H 12/13/16 10:00 Pulse Rate 117 H 12/13/16 10:00 Respiratory Rate 15 12/13/16 10:00 Blood Pressure 96/40 12/13/16 10:00 O2 Sat by Pulse Oximetry (%) 93 L 12/13/16 09:30 Constitutional: Yes: Calm Eyes: Yes: Conjunctiva Clear Neck: Yes: Other (trache) Cardiovascular: Yes: S1, S2 Respiratory: Yes: Mechanically Ventilated Gastrointestinal: Yes: Soft, Other (peg) Genitourinary: Yes: Incontinence Musculoskeletal: Yes: Muscle Weakness Edema: Yes Neurological: Yes: Lethargy Labs: CBC, BMP 12/12/16 05:45 12/12/16 05:45 INR, PTT INR 1.77 (0.82-1.09) H 12/06/16 06:50 Fibrinogen 279.0 mg/dL (238-498) 11/14/16 06:15 Problem List - Problems (1) Cardiopulmonary arrest Code(s): I46.9 - CARDIAC ARREST, CAUSE UNSPECIFIED (2) DVT (deep venous thrombosis) Code(s): I82.409 - ACUTE EMBOLISM AND THOMBOS UNSP DEEP VN UNSP LOWER EXTREMITY (3) ESRD (end stage renal disease) on dialysis Code(s): N18.6 - END STAGE RENAL DISEASE Z99.2 - DEPENDENCE ON RENAL DIALYSIS (4) HCV (hepatitis C virus) Code(s): B19.20 - UNSPECIFIED VIRAL HEPATITIS C WITHOUT HEPATIC COMA (5) Respiratory failure Code(s): J96.90 - RESPIRATORY FAILURE, UNSP, UNSP W HYPOXIA OR HYPERCAPNIA Assessment/Plan Current Medications Generic Name Dose Route Start Last Admin Trade Name Freq PRN Reason Stop Dose Admin Acetaminophen 650 mg 11/29/16 15:26 12/13/16 08:50 Tylenol Oral Solution - PO 650 mg Q6H PRN Administration FEVER OR PAIN Albuterol/Ipratropium 1 amp 12/11/16 22:00 12/13/16 06:40 Duoneb - NEB 1 amp TIDR MARIE Administration Amino Acids 30 ml 11/29/16 17:30 12/13/16 11:46 Prosource No Carb Liquid Pkt PO 30 ml BID@0800,1730 MARIE Administration Ascorbic Acid 500 mg 11/30/16 10:00 12/13/16 11:45 Vitamin C - PO 500 mg DAILY MARIE Administration Bacitracin 1 applic 11/30/16 10:00 12/13/16 11:47 Bacitracin - TP 1 applic DAILY MARIE Administration Calcitriol 0.5 mcg 11/30/16 10:00 12/13/16 11:48 Rocaltrol Liquid - NGT 0.5 mcg DAILY MARIE Administration Collagenase 1 applic 12/06/16 13:30 12/13/16 11:48 Santyl - TP 1 applic DAILY MARIE Administration Fentanyl 1 patch 12/08/16 13:00 12/11/16 13:34 Duragesic 25mcg Patch - TD 12/15/16 12:59 1 patch Q72H MARIE Administration Heparin Sodium (Porcine) 5,000 unit 12/08/16 22:00 12/13/16 11:47 Heparin - SQ 5,000 unit BID MARIE Administration Famotidine/Sodium Chloride 50 mls @ 100 mls/hr 12/04/16 10:00 12/13/16 11:46 Pepcid 20 Mg Premixed Ivpb - IVPB 100 mls/hr BID MARIE Administration Piperacillin Sod/Tazobactam Sod 50 mls @ 100 mls/hr 12/08/16 12:15 12/13/16 11: 46 Zosyn 2.25gm Ivpb (Pre-Docked) IVPB 100 mls/hr Q8H-IV MARIE Administration Protocol Levofloxacin 50 mls @ 50 mls/hr 12/13/16 10:00 12/13/16 11:46 Levaquin 250 Mg Premixed Ivpb - IVPB 50 mls/hr Q2D@1000 MARIE Administration Dextrose 1,000 mls @ 40 mls/hr 12/11/16 16:51 12/12/16 17:12 D5w - IV Not Given ASDIR MARIE Levetiracetam 500 mg 11/29/16 22:00 12/13/16 11:45 Keppra Oral Solution - PEG 500 mg BID MARIE Administration Lorazepam 0.5 mg 12/11/16 12:42 12/11/16 13:34 Ativan - GT 0.5 mg Q8H PRN Administration Miscellaneous 1 each 12/08/16 12:02 12/11/16 14:58 Duragesic Patch Waste MC 1 each PRN PRN Administration PAIN Morphine Sulfate 2 mg 12/12/16 13:59 12/13/16 08:50 Morphine Injection - IVPUSH 2 mg Q4H PRN Administration PAIN Ondansetron HCl 4 mg 11/29/16 15:26 Zofran Odt - SL Q8H PRN NAUSEA AND/OR VOMITING Zinc Sulfate 220 mg 11/30/16 10:00 12/13/16 11:45 Orazinc - PEG 220 mg DAILY MARIE Administration Impression 1. ESRD 2. s/p cardiopulmonary arrest 3. acute respiratory failure 4. Pneumonia 5. DVT of right leg 6. S/P Seizure following the arrest 7. Right renal complex cyst > 5cms in diameter 8. Anemia 9. Thrombocytopenia 10. H/O HCV 11. GI bleed 12. s/p exploratory laparotomy, lysis of adhesions, small bowel resection, and feeding jejunostomy Plan - discussed case with pts , he wants to stop HD and start comfort care - discussed case with PMD - cont current management - will not dialyze as per family's wishes - vent support Dr Espino
--- NOTE | 2016-12-13 14:54 | PN ---
Progress Note, Physician History of Present Illness: pulmonary poorly responsive on vent support ac mode,febrile - Current Medication List Current Medications: Active Medications Acetaminophen (Tylenol Oral Solution -) 650 mg PO Q6H PRN PRN Reason: FEVER OR PAIN Last Admin: 12/13/16 08:50 Dose: 650 mg Albuterol/Ipratropium (Duoneb -) 1 amp NEB TIDR [facility] Last Admin: 12/13/16 13:49 Dose: 1 amp Amino Acids (Prosource No Carb Liquid Pkt) 30 ml PO BID@0800,1730 [facility] Last Admin: 12/13/16 11:46 Dose: 30 ml Ascorbic Acid (Vitamin C -) 500 mg PO DAILY [facility] Last Admin: 12/13/16 11:45 Dose: 500 mg Bacitracin (Bacitracin -) 1 applic TP DAILY [facility] Last Admin: 12/13/16 11:47 Dose: 1 applic Calcitriol (Rocaltrol Liquid -) 0.5 mcg NGT DAILY [facility] Last Admin: 12/13/16 11:48 Dose: 0.5 mcg Collagenase (Santyl -) 1 applic TP DAILY [facility] Last Admin: 12/13/16 11:48 Dose: 1 applic Fentanyl (Duragesic 25mcg Patch -) 1 patch TD Q72H [facility] Stop: 12/15/16 12:59 Last Admin: 12/11/16 13:34 Dose: 1 patch Heparin Sodium (Porcine) (Heparin -) 5,000 unit SQ BID [facility] Last Admin: 12/13/16 11:47 Dose: 5,000 unit Famotidine/Sodium Chloride (Pepcid 20 Mg Premixed Ivpb -) 50 mls @ 100 mls/hr IVPB BID [facility] Last Admin: 12/13/16 11:46 Dose: 100 mls/hr Piperacillin Sod/Tazobactam Sod (Zosyn 2.25gm Ivpb (Pre-Docked)) 50 mls @ 100 mls/hr IVPB Q8H-IV [facility] PRN Reason: Protocol Last Admin: 12/13/16 11:46 Dose: 100 mls/hr Levofloxacin (Levaquin 250 Mg Premixed Ivpb -) 50 mls @ 50 mls/hr IVPB Q2D@ 1000 [facility] Last Admin: 12/13/16 11:46 Dose: 50 mls/hr Dextrose (D5w -) 1,000 mls @ 40 mls/hr IV ASDIR [facility] Last Admin: 12/12/16 17:12 Dose: Not Given Levetiracetam (Keppra Oral Solution -) 500 mg PEG BID [facility] Last Admin: 12/13/16 11:45 Dose: 500 mg Lorazepam (Ativan -) 0.5 mg GT Q8H PRN Last Admin: 12/11/16 13:34 Dose: 0.5 mg Miscellaneous (Duragesic Patch Waste) 1 each MC PRN PRN PRN Reason: PAIN Last Admin: 12/11/16 14:58 Dose: 1 each Morphine Sulfate (Morphine Injection -) 2 mg IVPUSH Q4H PRN PRN Reason: PAIN Last Admin: 12/13/16 08:50 Dose: 2 mg Ondansetron HCl (Zofran Odt -) 4 mg SL Q8H PRN PRN Reason: NAUSEA AND/OR VOMITING Zinc Sulfate (Orazinc -) 220 mg PEG DAILY [facility] Last Admin: 12/13/16 11:45 Dose: 220 mg - Objective Vital Signs: Vital Signs Temperature 100.5 F H 12/13/16 10:00 Pulse Rate 117 H 12/13/16 10:00 Respiratory Rate 15 12/13/16 13:00 Blood Pressure 96/40 12/13/16 10:00 O2 Sat by Pulse Oximetry (%) 93 L 12/13/16 09:30 Constitutional: Yes: Thin, Other (poorly responsive) Eyes: Yes: WNL HENT: Yes: WNL Neck: Yes: Supple (trach) Cardiovascular: Yes: Regular Rate and Rhythm, S1, S2 Respiratory: Yes: Rhonchi (scattered anand rhonchi) Gastrointestinal: Yes: Normal Bowel Sounds, Soft Extremities: Yes: WNL Edema: Yes Labs: CBC, BMP 12/12/16 05:45 12/12/16 05:45 INR, PTT INR 1.77 (0.82-1.09) H 12/06/16 06:50 Fibrinogen 279.0 mg/dL (238-498) 11/14/16 06:15 Problem List - Problems (1) Anemia Code(s): D64.9 - ANEMIA, UNSPECIFIED Qualifiers: Qualified Code(s): N18.9 - Chronic kidney disease, unspecified; D63.1 - Anemia in chronic kidney disease (2) Cardiopulmonary arrest Code(s): I46.9 - CARDIAC ARREST, CAUSE UNSPECIFIED (3) DVT (deep venous thrombosis) Code(s): I82.409 - ACUTE EMBOLISM AND THOMBOS UNSP DEEP VN UNSP LOWER EXTREMITY (4) Dysphagia Code(s): R13.10 - DYSPHAGIA, UNSPECIFIED (5) ESRD (end stage renal disease) on dialysis Code(s): N18.6 - END STAGE RENAL DISEASE Z99.2 - DEPENDENCE ON RENAL DIALYSIS (6) Pneumonia Code(s): J18.9 - PNEUMONIA, UNSPECIFIED ORGANISM (7) Respiratory failure Code(s): J96.90 - RESPIRATORY FAILURE, UNSP, UNSP W HYPOXIA OR HYPERCAPNIA (8) Shock Code(s): R57.9 - SHOCK, UNSPECIFIED Assessment/Plan A/P s/p PEA Cardiopulmonary Arrest s/p Hypothermia Protocol s/p Tracheostomy Pneumonia improved s/p Septic Shock Pulmonary HTN Lactic Acidosis resolved ESRD on HD r/o Anoxic Encephalopathy RLE distal DVT GI Bleed Thrombocytopenia - HD per renal - s/p antibiotics - monitor CBC - transfuse as needed - DVT/GI prophylaxis - comfort care DR ANGELA
[2016-12-13] MEDS: DEXTROSE 5%-WATER - 1,000 ML IV SCH ×2 (18:03→23:24)
--- NOTE | 2016-12-13 18:36 | PN ---
Progress Note, Physician Chief Complaint: bedside +moderate-severe distress - Current Medication List Current Medications: Active Medications Acetaminophen (Tylenol Oral Solution -) 650 mg PO Q6H PRN PRN Reason: FEVER OR PAIN Last Admin: 12/13/16 08:50 Dose: 650 mg Albuterol/Ipratropium (Duoneb -) 1 amp NEB TIDR [facility] Last Admin: 12/13/16 13:49 Dose: 1 amp Amino Acids (Prosource No Carb Liquid Pkt) 30 ml PO BID@0800,1730 [facility] Last Admin: 12/13/16 18:02 Dose: 30 ml Ascorbic Acid (Vitamin C -) 500 mg PO DAILY [facility] Last Admin: 12/13/16 11:45 Dose: 500 mg Bacitracin (Bacitracin -) 1 applic TP DAILY [facility] Last Admin: 12/13/16 11:47 Dose: 1 applic Calcitriol (Rocaltrol Liquid -) 0.5 mcg NGT DAILY [facility] Last Admin: 12/13/16 11:48 Dose: 0.5 mcg Collagenase (Santyl -) 1 applic TP DAILY [facility] Last Admin: 12/13/16 11:48 Dose: 1 applic Fentanyl (Duragesic 25mcg Patch -) 1 patch TD Q72H [facility] Stop: 12/15/16 12:59 Last Admin: 12/11/16 13:34 Dose: 1 patch Heparin Sodium (Porcine) (Heparin -) 5,000 unit SQ BID [facility] Last Admin: 12/13/16 11:47 Dose: 5,000 unit Famotidine/Sodium Chloride (Pepcid 20 Mg Premixed Ivpb -) 50 mls @ 100 mls/hr IVPB BID [facility] Last Admin: 12/13/16 11:46 Dose: 100 mls/hr Piperacillin Sod/Tazobactam Sod (Zosyn 2.25gm Ivpb (Pre-Docked)) 50 mls @ 100 mls/hr IVPB Q8H-IV [facility] PRN Reason: Protocol Last Admin: 12/13/16 18:02 Dose: 100 mls/hr Levofloxacin (Levaquin 250 Mg Premixed Ivpb -) 50 mls @ 50 mls/hr IVPB Q2D@ 1000 [facility] Last Admin: 12/13/16 11:46 Dose: 50 mls/hr Dextrose (D5w -) 1,000 mls @ 40 mls/hr IV ASDIR [facility] Last Admin: 12/13/16 18:03 Dose: 40 mls/hr Levetiracetam (Keppra Oral Solution -) 500 mg PEG BID [facility] Last Admin: 12/13/16 11:45 Dose: 500 mg Lorazepam (Ativan -) 0.5 mg GT Q8H PRN Last Admin: 12/11/16 13:34 Dose: 0.5 mg Miscellaneous (Duragesic Patch Waste) 1 each MC PRN PRN PRN Reason: PAIN Last Admin: 12/11/16 14:58 Dose: 1 each Morphine Sulfate (Morphine Injection -) 2 mg IVPUSH Q4H PRN PRN Reason: PAIN Last Admin: 12/13/16 18:10 Dose: 2 mg Ondansetron HCl (Zofran Odt -) 4 mg SL Q8H PRN PRN Reason: NAUSEA AND/OR VOMITING Zinc Sulfate (Orazinc -) 220 mg PEG DAILY [facility] Last Admin: 12/13/16 11:45 Dose: 220 mg - Objective Vital Signs: Vital Signs Temperature 99.9 F H 12/13/16 14:19 Pulse Rate 105 H 12/13/16 14:19 Respiratory Rate 27 H 12/13/16 14:19 Blood Pressure 62/28 12/13/16 14:19 O2 Sat by Pulse Oximetry (%) 93 L 12/13/16 09:30 Constitutional: Yes: Moderate Distress Eyes: Yes: Other HENT: Yes: Other Neck: Yes: Decreased ROM, Other Cardiovascular: Yes: Tachycardia Respiratory: Yes: Diminished, Mechanically Ventilated, Poor Air Entry Gastrointestinal: Yes: Distention, Tenderness Musculoskeletal: Yes: Muscle Weakness Extremities: Yes: Other Edema: Yes Peripheral Pulses WNL: Yes Integumentary: Yes: Pressure Ulcer, Rash Wound/Incision: Yes: Dressing Dry and Intact, Draining, Reddened, Unapproximated Neurological: Yes: Confusion, Pre-Existing Deficit ...Motor Strength: LLE, RLE Psychiatric: Yes: Other Labs: CBC, BMP 12/12/16 05:45 12/12/16 05:45 INR, PTT INR 1.77 (0.82-1.09) H 12/06/16 06:50 Fibrinogen 279.0 mg/dL (238-498) 11/14/16 06:15 Problem List - Problems (1) Cardiopulmonary arrest Code(s): I46.9 - CARDIAC ARREST, CAUSE UNSPECIFIED (2) DVT (deep venous thrombosis) Code(s): I82.409 - ACUTE EMBOLISM AND THOMBOS UNSP DEEP VN UNSP LOWER EXTREMITY (3) ESRD (end stage renal disease) on dialysis Code(s): N18.6 - END STAGE RENAL DISEASE Z99.2 - DEPENDENCE ON RENAL DIALYSIS (4) HCV (hepatitis C virus) Code(s): B19.20 - UNSPECIFIED VIRAL HEPATITIS C WITHOUT HEPATIC COMA (5) Metabolic encephalopathy Code(s): G93.41 - METABOLIC ENCEPHALOPATHY (6) Pneumonia Code(s): J18.9 - PNEUMONIA, UNSPECIFIED ORGANISM (7) Respiratory failure Code(s): J96.90 - RESPIRATORY FAILURE, UNSP, UNSP W HYPOXIA OR HYPERCAPNIA (8) Dysphagia Code(s): R13.10 - DYSPHAGIA, UNSPECIFIED Assessment/Plan poor prognosis now dnr/no hd pain control comfort care no labs
[2016-12-13 19:28] VITALS: BP 62/38; PULSE 103; TEMP 100.4
--- NOTE | 2016-12-14 00:07 | HOSP ---
Subjective - Review of Symptoms Events since last encounter: Was paged by the nurse and inform me that patient doesn't have Blood pressure or pulse. Went to assess the patient in room 504 A. Patient was found to be unresponsive, no heart sounds on auscultation, no palpable pulses, no corneal reflexes, pupils were fixed and dilated, no gag reflex. Confirmed by three physicians. Pronounced at 12:15am. Central line and peg tube removed. Dr. Cole and family to be notified by the RN. Physical Examination Vital Signs: Vital Signs Temperature 100.4 F H 12/13/16 19:00 Pulse Rate 103 H 12/13/16 19:00 Respiratory Rate 16 12/13/16 21:05 Blood Pressure 62/38 12/13/16 19:00 O2 Sat by Pulse Oximetry (%) 93 L 12/13/16 09:30 Labs: CBC, BMP 12/12/16 05:45 12/12/16 05:45 Visit type - Emergency Visit Emergency Visit: Yes ED Registration Date: 10/22/16 Care time: The patient presented to the Emergency Department on the above date and was hospitalized for further evaluation of their emergent condition. - New Patient This patient is new to me today: Yes Date on this admission: 12/14/16 - Critical Care Critical Care patient: No
--- NOTE | 2016-12-14 07:52 | DS ---
Physical Examination Vital Signs: Vital Signs Temperature 100.4 F H 12/13/16 19:00 Pulse Rate 103 H 12/13/16 19:00 Respiratory Rate 16 12/13/16 21:05 Blood Pressure 62/38 12/13/16 19:00 O2 Sat by Pulse Oximetry (%) 93 L 12/13/16 09:30 Findings/Remarks: called by nurse patient seen and examined by hospitalist Labs: CBC, BMP 12/12/16 05:45 12/12/16 05:45 Discharge Summary Reason For Visit: PNEUMONIA pneumonia cardiac arrest dysphagia cva old esrd on hd sepsis urinary and pneumonia sepsis bacteremia tracheostomy j-tube placement Procedures: Principal: tracheostomy Other Procedures: jtube placement Hospital Course: 81 y/o female with multiple medical problems stemming from cardiac arrest/pna/ urinary sepsis/esrd-hd/dysphagia/cva/tracheostomy vent dependent admitted to icu and the med-surg. after a long struggle and full optimal care here at [facility] the patient over night. she was DNR Condition: Poor - Instructions Diet, Activity, Other Instructions: JTUBE TO GOAL TOLERATED Referrals: Carlyle Valente MD [Primary Care Provider] - Disposition: - Home Medications Comprehensive Discharge Medication List: Ambulatory Orders Acetaminophen [Tylenol .Regular Strength -] 650 mg PO Q6H PRN 10/22/16 Albuterol 2.5/Ipratropium 0.5 [Duoneb -] 1 neb NEB Q4H 10/30/16 Amlodipine Besylate [Norvasc -] 10 mg PO DAILY 10/30/16 Calcium Carbonate/Vitamin D3 [Calcium 600 + Vit D Tablet] 1 tablet PO DAILY 03/10 Carvedilol [Coreg] 25 mg PO BID 10/30/16 Diphenhydramine HCl [Benadryl Capsule -] 25 mg PO ONCE 10/30/16 Folic Acid/Vit Bcomp,C [Dialyvite Tablet] 1 each PO DAILY 10/30/16 Albuterol 0.083% Nebulizer Valeria [Ventolin 0.083% Nebulizer Soln -] 1 amp NEB Q1H PRN #0 amp 11/29/16 Albuterol 0.083% Nebulizer Valeria [Ventolin 0.083% Nebulizer Soln -] 1 amp NEB Q1H PRN #0 amp 11/29/16 Albuterol 0.083% Nebulizer Valeria [Ventolin 0.083% Nebulizer Soln -] 1 amp NEB Q1H PRN #0 amp 11/29/16 Albuterol 2.5/Ipratropium 0.5 [Duoneb -] 1 amp NEB TIDR amp 11/29/16 Albuterol 2.5/Ipratropium 0.5 [Duoneb -] 1 amp NEB TIDR amp 11/29/16 Albuterol 2.5/Ipratropium 0.5 [Duoneb -] 1 amp NEB TIDR amp 11/29/16 Amino Acids/Protein Hydrolys [Prosource No Carb Liquid Pkt] 30 ml PO BID@0800, 1730 packet 11/29/16 Amino Acids/Protein Hydrolys [Prosource No Carb Liquid Pkt] 30 ml PO BID@0800, 1730 packet 11/29/16 Amino Acids/Protein Hydrolys [Prosource No Carb Liquid Pkt] 30 ml PO BID@0800, 1730 packet 11/29/16 Ascorbic Acid [Vitamin C -] 500 mg PO DAILY tablet 11/29/16 Bacitracin - [Bacitracin Topical Ointment -] 1 applic TP DAILY tube 11/29/16 Bacitracin - [Bacitracin Topical Ointment -] 1 applic TP DAILY tube 11/29/16 Bacitracin - [Bacitracin Topical Ointment -] 1 applic TP DAILY tube 11/29/16 Calcitriol [Rocaltrol -] 0.5 mcg NGT DAILY bot 11/29/16 Calcitriol [Rocaltrol -] 0.5 mcg NGT DAILY bot 11/29/16 Calcitriol [Rocaltrol -] 0.5 mcg NGT DAILY bot 11/29/16 Levetiracetam [Keppra Oral Solution -] 500 mg PEG BID cup 11/29/16 Ondansetron [Zofran Odt -] 4 mg SL Q8H PRN #0 tab.rapdis 11/29/16 Oxycodone HCl [Roxicodone -] 5 mg PEG Q6H PRN #0 tablet MDD 4 11/29/16 Pantoprazole Suspension [Protonix Packets For Oral Suspension -] 40 mg NGT DAILY packet 11/29/16 Zinc Sulfate [Orazinc -] 220 mg PEG DAILY capsule 11/29/16
== END 2016-12-14 03:24 | disposition expired | DRG 3 ==
LOC: JER 23:30 → UNDOADMIN 10-22 02:08 → JERBED 10-22 02:08 → JICU 10-22 04:26 → J5S 11-08 17:27 → JICU 11-22 22:38 → J5S 11-28 15:59
PROVIDERS: ADMIT Family Medicine; ATTEND Family Medicine
PROC: 5A1955Z Respiratory Ventilation, Greater than 96 Consecutive Hours (ICD-10-PCS; 2016-10-22)
PROC: 30233N1 Transfusion of Nonautologous Red Blood Cells into Peripheral Vein, Percutaneous Approach (ICD-10-PCS; 2016-10-26)
PROC: 06H03DZ Insertion of Intraluminal Device into Inferior Vena Cava, Percutaneous Approach (ICD-10-PCS; 2016-10-27)
PROC: 30233R1 Transfusion of Nonautologous Platelets into Peripheral Vein, Percutaneous Approach (ICD-10-PCS; 2016-10-28)
PROC: 30233M1 Transfusion of Nonautologous Plasma Cryoprecipitate into Peripheral Vein, Percutaneous Approach (ICD-10-PCS; 2016-11-01)
PROC: 0B113F4 Bypass Trachea to Cutaneous with Tracheostomy Device, Percutaneous Approach (ICD-10-PCS; principal; 2016-11-11)
PROC: 05HM33Z Insertion of Infusion Device into Right Internal Jugular Vein, Percutaneous Approach (ICD-10-PCS; 2016-11-11)
PROC: 03180ZD Bypass Left Brachial Artery to Upper Arm Vein, Open Approach (ICD-10-PCS; 2016-11-15)
PROC: B50NYZZ Plain Radiography of Left Upper Extremity Veins using Other Contrast (ICD-10-PCS; 2016-11-15)
PROC: 0DH67UZ Insertion of Feeding Device into Stomach, Via Natural or Artificial Opening (ICD-10-PCS; 2016-11-17)
PROC: 3E0G76Z Introduction of Nutritional Substance into Upper GI, Via Natural or Artificial Opening (ICD-10-PCS; 2016-11-17)
PROC: 0DT80ZZ Resection of Small Intestine, Open Approach (ICD-10-PCS; 2016-11-22)
PROC: 0JNC0ZZ Release Pelvic Region Subcutaneous Tissue and Fascia, Open Approach (ICD-10-PCS; 2016-11-22)
PROC: 0DHA3UZ Insertion of Feeding Device into Jejunum, Percutaneous Approach (ICD-10-PCS; 2016-11-22)
PROC: 0JQ80ZZ Repair Abdomen Subcutaneous Tissue and Fascia, Open Approach (ICD-10-PCS; 2016-11-29)
PROC: 3E10X8Z Irrigation of Skin and Mucous Membranes using Irrigating Substance (ICD-10-PCS; 2016-11-29)
PROC: 0BJ08ZZ Inspection of Tracheobronchial Tree, Via Natural or Artificial Opening Endoscopic (ICD-10-PCS; 2016-12-04)
DX: A41.9 Sepsis, unspecified organism (principal); J18.9 Pneumonia, unspecified organism; J96.90 Respiratory failure, unspecified, unspecified whether with hypoxia or hypercapnia; G93.41 Metabolic encephalopathy; R65.21 Severe sepsis with septic shock; N18.6 End stage renal disease; E87.2 Acidosis; J90 Pleural effusion, not elsewhere classified; Z99.11 Dependence on respirator [ventilator] status; K92.2 Gastrointestinal hemorrhage, unspecified; E87.0 Hyperosmolality and hypernatremia; R64 Cachexia; D68.9 Coagulation defect, unspecified; T81.30XA Disruption of wound, unspecified, initial encounter; R18.8 Other ascites; E46 Unspecified protein-calorie malnutrition; J98.11 Atelectasis; K56.60 Unspecified intestinal obstruction; G93.1 Anoxic brain damage, not elsewhere classified; I12.0 Hypertensive chronic kidney disease with stage 5 chronic kidney disease or end stage renal disease; T82.858A Stenosis of other vascular prosthetic devices, implants and grafts, initial encounter; I82.411 Acute embolism and thrombosis of right femoral vein; R13.10 Dysphagia, unspecified; I27.2 Other secondary pulmonary hypertension; D69.6 Thrombocytopenia, unspecified; D72.829 Elevated white blood cell count, unspecified; B19.20 Unspecified viral hepatitis C without hepatic coma; E87.6 Hypokalemia; D64.9 Anemia, unspecified; K74.60 Unspecified cirrhosis of liver; Z68.21 Body mass index [BMI] 21.0-21.9, adult; E88.09 Other disorders of plasma-protein metabolism, not elsewhere classified; Y83.9 Surgical procedure, unspecified as the cause of abnormal reaction of the patient, or of later complication, without mention of misadventure at the time of the procedure; D63.8 Anemia in other chronic diseases classified elsewhere; G40.909 Epilepsy, unspecified, not intractable, without status epilepticus; E83.42 Hypomagnesemia; I48.91 Unspecified atrial fibrillation; I46.9 Cardiac arrest, cause unspecified; R41.82 Altered mental status, unspecified; R62.7 Adult failure to thrive; N73.6 Female pelvic peritoneal adhesions (postinfective)
CPT/HCPCS: 31500; 36415; 36430; 36511; 36600; 37191; 43752; 70450-TC; 71010-TC; 71275-TC; 74000-TC; 74176-TC; 74230-TC; 76000-TC; 76705-TC; 76775-TC; 76937-TC; 80048; 80053; 80076; 82105; 82140; 82150; 82272; 82542; 82550; 82565; 82803; 83010; 83540; 83550; 83605; 83615; 83690; 83735; 84100; 84460; 84484; 84520; 85025; 85027; 85044; 85384; 85610; 85730; 86022; 86140; 86704; 86705; 86706; 86707; 86803; 86850; 86860; 86870; 86880; 86900; 86901; 86902; 86922; 87040; 87070; 87077; 87102; 87186; 87205; 87210; 87254; 87324; 87340; 87350; 87389; 87449; 87522; 87804; 88307-TC; 90670; 92611-GN; 93005; 93010; 93306-TC; 93970-TC; 94002; 94640; 94760; 95816; 97162-PG; 99285-25; C1769; C1880; C1887; G0480; J0885; J1644; P9012; P9017; P9034; P9038; P9047; P9058; Q2037